=== PATIENT | female | born 1985 | race Caucasian/White ===

== ENCOUNTER 2016-08-02 18:48 | Observation (INO) ==
[2016-08-02 20:00] LABS: Basophils # 0.1 K/mcL (0.0-0.2); Basophils % 0.4 %; Eosinophils # 0.3 K/mcL (0.0-0.6); Eosinophils % 2.2 %; Hematocrit 37.5 % (35.3-44.9); Hemoglobin 12.7 g/dL (11.5-15.4); Immature Granulocytes % 0.4 % (0-4); Immature Platelets 4.2 % (1.1-6.1); Lymphocytes # 0.9 K/mcL (0.6-4.6); Lymphocytes % 6.7 %; Mean Corpuscular HGB Conc 33.9 g/dL (31.6-35.5); Mean Corpuscular Hemoglobin 30.9 pg (28.0-33.3); Mean Corpuscular Volume 91.2 fL (83.0-100.0); Monocytes % 7.8 %; Neutrophils # 10.8 K/mcL (1.6-8.9); Platelet Count 256 K/mcL (140-400); Red Blood Count 4.11 M/mcL (3.82-4.97); Red Cell Distribution Width 11.2 % (11.5-14.5); Segmented Neutrophils % 82.5 %
[2016-08-02 20:17] LABS: Alanine Aminotransferase 56 Units/L (0-55); Albumin 3.2 g/dL (3.5-5.0); Albumin/Globulin Ratio 0.9 (1.1-2.2); Alkaline Phosphatase 224 Units/L (38-126); Amylase 17 Units/L (25-125); Aspartate Amino Transferase 20 Units/L (5-34); BUN/Creatinine Ratio 19 (6-26); Bilirubin,Direct 0.3 mg/dL (0.0-0.5); Bilirubin,Indirect 0.4 mg/dL (0.0-1.2); Bilirubin,Total 0.7 mg/dL (0.2-1.2); Blood Urea Nitrogen 18 mg/dL (7-20); Calcium 9.2 mg/dL (8.6-10.8); Carbon Dioxide 21 mEq/L (19-29); Chloride 101 mEq/L (98-109); Globulin 3.5 g/dL (2.4-3.5); Glucose 216 mg/dL (70-99); Lipase 12 Units/L (8-78); Osmolality,Calculated 288 (280-300); Sodium 135 mEq/L (136-145); Total Protein 6.7 g/dL (6.0-8.3); eGFR For African Americans > 60 (> 60); eGFR For Non-African Americans > 60 (> 60)
[2016-08-02] MEDS ORDERED: 0.9 % Sodium Chloride 1,000 ML IVC ONE (20:50)
[2016-08-02] MEDS ORDERED: Ondansetron 4 MG/2 ML VIAL IVP ONE (20:51)
--- NOTE | 2016-08-02 20:54 | Emergency Department Note ---
Disposition Clinical Impression: Hyperglycemia, Ketoacidosis, Tachycardia, Type 1 diabetes, Vomiting, Diarrhea, Abnormal urinalysis, Abnormal liver function test Disposition: Admitted As Inpatient Condition: Good General Adult HPI - General Chief complaint: ED Abdominal Pain Stated complaint: Flu-like symptoms, vomiting Time Seen by Provider: 08/02/16 20:20 Source: patient, family Limitations: no limitations - History of Present Illness HPI Narrative: 30-year-old female type I diabetic reports emergency department complaining of abdominal pain vomiting and diarrhea. She reports she has had a cough runny nose as well as ear pain and sore throat. The patient thinks she may have had a fever. There is no history of headache neck stiffness or rash. No chest pain. She has felt somewhat short of breath. There is no history of leg swelling or pain falls injuries or coughing up blood. No syncope. The patient states her blood sugars was in the 500 + range earlier today so she took 12 units of insulin. There is no history of black or bloody emesis or stool. She is not known to be anticoagulated. The patient has chronic blindness secondary to her diabetes. She has had no difficulty moving her arms or legs independently, no dysarthria or hearing problems acutely. The patient reports she feels sick. She came in for evaluation. Pain Scale: 8 - Related Data Home Medications Medication Instructions Recorded Confirmed Ergocalciferol (VITAMIN D2) 50,000 unit PO WE 09/06/15 08/02/16 [Vitamin D2 (50,000 UNIT)] LORazepam [Ativan] 1 mg PO BID 02/02/16 08/02/16 PrednisoLONE Acetate 1% Opth 1 drop OP QID 02/02/16 08/02/16 [PredFORTE 1%] Timolol Maleate 0.5% 1 drop OP BID 02/02/16 08/02/16 Atropine 1% Opth Drops 1 drop OP BID 02/15/16 08/02/16 Oxycodone HCl/Acetaminophen 1 each PO Q6H PRN 02/15/16 08/02/16 [Percocet 5-325 mg Tablet] Insulin ASPART [Novolog Flexpen] 0 unit SQ TIDWM 08/02/16 08/02/16 Insulin Glargine,Hum.rec.anlog 20 unit SQ HS 08/02/16 08/02/16 [Lantus Solostar] Previous Rx's Medication Instructions Recorded Fluconazole [Diflucan] 150 mg PO ONCE #1 tablet 08/05/16 Metoclopramide [Reglan] 10 mg PO Q6HR PRN #15 mls 08/05/16 MetroNIDAZOLE [Flagyl] 500 mg PO TID 13 Days 08/05/16 Vancomycin Oral Soln [Vancocin] 125 mg PO QID #65 ml 08/05/16 Allergies Allergy/AdvReac Type Severity Reaction Status Date / Time hydrocodone Allergy Hives Verified 08/02/16 18:56 All systems ED: reviewed and negative except as stated. Past Medical History - Past Medical History Medical history: Reports: arthritis, cirrhosis, diabetes, GERD, glaucoma, hyperlipidemia, hypertension, liver disease, osteoporosis, other Surgical history: Reports: , cholecystectomy, sinus surgery, other Psychiatric history: Reports: anxiety SALES TRAINING REPRESENTATIVE history: Reports: no SALES TRAINING REPRESENTATIVE history - Social History Smoking Status: Never smoker Smokeless Tobacco Status: No Alcohol use: Reports: none Drug use: Reports: none Physical Exam - General Limitations: no limitations General appearance: alert, in no apparent distress - Head Head exam: atraumatic, normocephalic, normal inspection - Eye Eye exam: Present: other (Poor pupillary reaction, chronic blindness). Absent: normal appearance, PERRL, scleral icterus, conjunctival injection, mydriasis - ENT ENT exam: normal exam, normal oropharynx, mucous membranes moist, TM's normal bilaterally, normal external ear exam - Neck Neck exam: Present: normal inspection, full ROM, trachea midline. Absent: meningismus - Chest Chest inspection: Present: symmetric chest wall rise. Absent: tenderness - Respiratory Respiratory exam: Present: normal lung sounds bilaterally. Absent: respiratory distress, prolonged expiratory phase - Cardiovascular Cardiovascular exam: Present: regular rate, tachycardia - Abdominal Exam Abdominal exam: Present: soft, normal bowel sounds. Absent: distention, guarding, rebound, rigidity, pulsatile mass Abdominal tenderness: Present: diffuse, mild - Extremities Exam Extremities exam: Present: normal inspection, full ROM, normal capillary refill. Absent: tenderness, pedal edema, joint swelling, calf tenderness - Expanded Lower Extremity Exam Hip/Pelvis exam: Present: full ROM. Absent: tenderness Upper leg exam: Present: full ROM. Absent: tenderness Knee exam: Present: full ROM. Absent: tenderness Lower leg exam: Absent: tenderness, Homans' sign Foot/toe exam: Present: full ROM. Absent: tenderness Neurovascular/Tendon exam: Present: normal capillary refill. Absent: motor deficit, sensory deficit, tendon deficit, extremity cold to touch, pallor - Back Exam Back exam: Present: normal inspection, full ROM. Absent: tenderness, CVA tenderness (R), CVA tenderness (L), vertebral tenderness - Neurological Exam Neurological exam: Present: alert, oriented X3. Absent: CN II-XII intact ( Chronic blindness), motor sensory deficit - Psychiatric Psychiatric exam: Present: normal affect, normal mood - Skin Skin exam: Present: warm, dry, intact, normal color. Absent: rash, cyanosis, diaphoresis, erythema, pallor, mottled Course Vital Signs Temperature 99.5 F 08/02/16 18:53 Pulse Rate 121 08/02/16 18:53 Respiratory Rate 17 08/02/16 18:53 Blood Pressure 136/78 08/02/16 18:53 O2 Sat by Pulse Oximetry 97 08/02/16 18:53 Temperature 97.9 F 08/05/16 07:57 Pulse Rate 105 08/05/16 07:57 Respiratory Rate 16 08/05/16 07:57 Blood Pressure 142/92 08/05/16 07:57 O2 Sat by Pulse Oximetry 98 08/05/16 07:57 Oxygen Delivery Oxygen Delivery Room Air Medical Decision Making - [facility] Narrative Medical decision making narrative: The patient reportedly had glucose levels about 580 earlier today, she gave herself some insulin, she has had vomiting and diarrhea and diffuse abdominal pain. The patient's betahydroxybutyrate acid levels are high, she is tachycardic. based on the patient's tachycardia, history of markedly elevated blood sugar, known type 1 diabetes mellitus, and significantly elevated beta hydroxybutyrate levels possibly indicating resolving DKA, I thought it would be appropriate to admit the patient to the hospital for further evaluation and management. Although her urinalysis does show abnormalities, her white count is elevated, and she is tachycardic, she is afebrile I do not necessarily suspect sepsis, however this remains a possibility, urine cultures and blood cultures were sent , IV fluid was given, I consulted with the hospitalist on-call who has accepted the patient to their care. - Lab Data Lab results reviewed: Yes I reviewed the patient's lab results. Result diagrams: 08/05/16 04:23 08/05/16 04:23 Lab Results 08/02/16 08/02/16 08/02/16 Range/Units 19:19 19:35 19:35 WBC 13.0 H (4.3-11.1) K/mcL RBC 4.11 (3.82-4.97) M/mcL Hgb 12.7 (11.5-15.4) g/dL Hct 37.5 (35.3-44.9) % MCV 91.2 (83.0-100.0) fL MCH 30.9 (28.0-33.3) pg MCHC 33.9 (31.6-35.5) g/dL RDW 11.2 L (11.5-14.5) % Plt Count 256 (140-400) K/mcL MPV 10.0 (9.4-12.4) fL Immature Gran % 0.4 (0-4) % Seg Neutrophils % 82.5 % Lymphocytes % 6.7 % Monocytes % 7.8 % Eosinophils % 2.2 % Basophils % 0.4 % Neutrophils # 10.8 H (1.6-8.9) K/mcL Lymphocytes # 0.9 (0.6-4.6) K/mcL Monocytes # 1.0 (0.0-1.3) K/mcL Eosinophils # 0.3 (0.0-0.6) K/mcL Basophils # 0.1 (0.0-0.2) K/mcL Immature Plt Fraction 4.2 (1.1-6.1) % Sodium 135 L (136-145) mEq/L Potassium 4.0 (3.5-4.5) mEq/L Chloride 101 (98-109) mEq/L Carbon Dioxide 21 (19-29) mEq/L BUN 18 (7-20) mg/dL Creatinine 0.96 (0.57-1.11) mg/dL Est GFR ( Amer) > 60 (> 60) Est GFR (Non-Af Amer) > 60 (> 60) BUN/Creatinine Ratio 19 (6-26) Glucose 216 H (70-99) mg/dL POC Glucose 218 H (58-89) Calculated Osmolality 288 (280-300) Calcium 9.2 (8.6-10.8) mg/dL Total Bilirubin 0.7 (0.2-1.2) mg/dL Direct Bilirubin 0.3 (0.0-0.5) mg/dL Indirect Bilirubin 0.4 (0.0-1.2) mg/dL AST 20 (5-34) Units/L ALT 56 H (0-55) Units/L Alkaline Phosphatase 224 H (38-126) Units/L Serum Total Protein 6.7 (6.0-8.3) g/dL Albumin 3.2 L (3.5-5.0) g/dL Globulin 3.5 (2.4-3.5) g/dL Albumin/Globulin Ratio 0.9 L (1.1-2.2) Amylase 17 L (25-125) Units/L Lipase 12 (8-78) Units/L Beta-Hydroxybutyric Acd > 2.00 H (0.02-0.27) mmol/L - Radiology Data Radiology results reviewed: Yes I reviewed the patient's radiology results.
[2016-08-02 21:15] LABS: Beta-Hydroxybutyric Acid > 2.00 mmol/L (0.02-0.27)
[2016-08-02] MEDS ORDERED: *HR* HYDROmorphone (PF) 1 MG/ML SYRINGE IVP ONE (22:36)
[2016-08-02 22:53] LABS: Bilirubin,Urine Negative (Negative); Blood,Urine Moderate (Negative); Clarity,Urine Cloudy (Clear); Color,Urine Yellow (Yellow); Glucose,Urine (UA) >=1000 mg/dL (Normal); Ketones,Urine 80 mg/dL (Negative); Leukocyte Esterase,Urine Negative (Negative); Nitrite,Urine Negative (Negative); Protein,Urine 100 mg/dL (Neg-Trace); Urobilinogen,Urine Normal (Normal)
[2016-08-02 22:55] LABS: Bacteria,Urine Many per hpf (None-Few); Squamous Epithelial Cell,Urine Many per lpf (None-Few); WBC,Urine 30-50 per hpf (0-3)
[2016-08-02 23:05] LABS: Yeast,Urine Few per hpf (None Seen)
[2016-08-03] MEDS ORDERED: *HR* Dextrose 50 % in Water (Syg) 50 ML SYRINGE IVP PRN ×3 (00:59→03:34)
[2016-08-03] MEDS ORDERED: Dextrose Gel 15 GM PO PRN ×4 (00:59→03:34)
[2016-08-03] MEDS ORDERED: D5% in Water 1,000 ML IVC PRN ×2 (00:59→03:34)
--- NOTE | 2016-08-03 01:01 | Internal Med History&Physical ---
Date of Encounter: 08/03/16 Time of Encounter: 00:46 Assessment and Plan (1) Intractable nausea and vomiting Current visit: Yes Status: Acute she comes in with abdominal pain, intractable nausea, vomiting and diarrhea most likely gastroenteritis from viral infection considering her recent bout of URTI, we will management symptomatically Qualifiers: Vomiting type: unspecified Qualified Code(s): R11.2 - Nausea with vomiting , unspecified (2) Hyperglycemia due to type 1 diabetes mellitus Current visit: Yes Status: Acute per patient her home readings were in the 500's, despite taking her insulin shots, this may be related to her concurrent URTI, her readings on this admission has also been in that range but improved, we will admit her for control, she is not in DKA yet but has significant ketosis most likely from starvation, we will do basal bolus insulin regimen, should her glucose control be poor despite this intervention we will consider initiating insulin drip (3) SIRS (systemic inflammatory response syndrome) Current visit: Yes Status: Acute may be a response to her URTI, her urine looks dirty but does not suggest UTI, her CXR looks normal (4) URTI (acute upper respiratory infection) Current visit: Yes Status: Acute (5) GERD (gastroesophageal reflux disease) Current visit: Yes Status: Chronic no home medication noted, we will consider medications if she reports symptoms Qualifiers: Esophagitis presence: without esophagitis Qualified Code(s): K21.9 - Gastro -esophageal reflux disease without esophagitis (6) Vitamin D deficiency Current visit: Yes Status: Chronic will continue replacement therapy weekly Internal Medicine - H&P: HPI Chief complaint: high glucose readings at home Admitted From: Emergency Dept Plans for Post Hospital Care: Home History of present illness: Ms. Sierra is a 30 year old female with a history of type 1 DM complicated by blindness was brought to the ER of [place] for uncontrollable nausea, vomiting and abdominal pain. She was reportedly in her usual state of health until Monday when she began to have runny nose, nasal congestion, cough and subjective fever and chills. This was followed by nausea, vomiting and abdominal pain and was unable to keep anything down. Though she continued to taken her insulin shots her home glucose readings were in the 500's so she reported here for further evaluation. She denies prior sick contacts, her appetite has been poor and her food intake has been minimal due to the aforementioned reasons. In the ER she was found to have hyperglycemia with ketosis but not in DKA. Past Med Surg Social Fam HX - Past Medical History Medical history: arthritis, cirrhosis, diabetes, GERD, glaucoma, hyperlipidemia , hypertension, liver disease, osteoporosis, other Psychiatric history: anxiety - Past Surgical History Surgical History: , cholecystectomy, sinus surgery, other - Social History Smoking Status: Never smoker Smokeless Tobacco Status: No Alcohol use: none Drug use: none - Family History Grandmother Family Member Ethnicity: Non- Living Status: Still Living Hx Family Cardiac Disorders: No Hx Family Respiratory Disorders: No Hx Family Cancer: No Hx Family GI Disorders: No Hx Family Genitourinary Disorders: No Hx Family Endocrine Disorder: Yes (type 2 diabetes) Hx Family Musculoskeletal Disorders: No Hx Family Neuromuscular Disorders: No Hx Family Neurologic Disorders: Yes (stroke) Hx Family HEENT Disorders: No Hx Family Autoimmune Disorders: No Hx Family Reproductive Disorders: No Hx Family Psychosocial Disorders: No Hx Family Medical Disorders: No Internal Medicine - H&P: Meds Ergocalciferol (VITAMIN D2) [Vitamin D2 (50,000 UNIT)] 50,000 unit PO WE [History] LORazepam [Ativan] 1 mg PO BID 02/02/16 [History] PrednisoLONE Acetate 1% Opth [PredFORTE 1%] 1 drop OP QID 02/02/16 [History] Timolol Maleate 0.5% 1 drop OP BID 02/02/16 [History] Atropine 1% Opth Drops 1 drop OP BID 02/15/16 [History] Oxycodone HCl/Acetaminophen [Percocet 5-325 mg Tablet] 1 each PO Q6H PRN [History] Insulin ASPART [Novolog Flexpen] 0 unit SQ TIDWM 08/02/16 [History] Insulin Glargine,Hum.rec.anlog [Lantus Solostar] 20 unit SQ HS 08/02/16 [History ] Allergies hydrocodone Allergy (Verified 08/02/16 18:56) Hives All Systems PM: A 10-system review of systems was performed and is negative for pertinent findings except as documented above in the HPI. - Constitutional Constitutional: anorexia, fatigue, malaise, weakness, no chills, no fever(s), no night sweats - EENT Eyes: blurry vision, change in vision, decreased night vision, loss of peripheral vision, loss of vision Ears: no ear discharge, no ear pain, no tinnitus Nose, mouth and throat: dry mouth, no dysphagia, no nasal discharge, no neck pain, no sore throat - Cardiovascular Cardiovascular ROS IM: no chest pain, no diaphoresis, no dyspnea, no dyspnea on exertion, no edema, no lightheadedness, no palpitations, no syncope - Respiratory Respiratory: no cough, no dyspnea, no wheezing, no excessive phlegm production - Gastrointestinal Gastrointestinal: abdominal pain, diarrhea, nausea, vomiting - Genitourinary Genitourinary: no change in urinary stream, no dysuria, no flank pain, no hematuria - Musculoskeletal Musculoskeletal ROS IM: no numbness, no tingling - Integumentary Integumentary IM: no rash, no unusual bruising - Neurological Neurological ROS: weakness, other visual disturbances, no confusion, no convulsions, no focal weakness, no numbness, no tingling, no tremor(s) - Psychiatric Psychiatric: no auditory hallucinations, no hallucinations - Endocrine Endocrine IM: fatigue, polydipsia, polyuria - Hematologic/Lymphatic Hematologic/Lymphatic: no easy bruising - Allergic/Immunologic Allergic/Immunologic: no tongue swelling, no throat swelling - Constitutional Vitals: Temp Pulse Resp BP Pulse Ox 99.5 F 120 16 123/66 97 08/02/16 23:43 08/02/16 23:43 08/02/16 23:43 08/02/16 23:43 08/02/16 23:43 - General General appearance: Young female, lying in bed, in no acute distress, alert, - Head Head exam: atraumatic, normocephalic, normal inspection - Eye Eye exam: Poor pupillary reaction, chronic blindness. Absent: normal appearance , PERRL, scleral icterus, conjunctival injection, mydriasis - ENT ENT exam: normal exam, normal oropharynx, mucous membranes moist, TM's normal bilaterally, normal external ear exam - Neck Neck exam: Present: normal inspection, full ROM, trachea midline. Absent: meningismus - Chest Chest inspection: Present: symmetric chest wall rise. Absent: tenderness - Respiratory Respiratory exam: Present: normal lung sounds bilaterally. Absent: respiratory distress, prolonged expiratory phase - Cardiovascular Cardiovascular exam: Present: regular rate, tachycardia - Abdominal Exam Abdominal exam: Present: soft, diffuse tenderness, no guarding noted, normal bowel sounds. Absent: distention, guarding, rebound, rigidity, pulsatile mass - Extremities Exam Extremities exam: Present: normal inspection, full ROM, normal capillary refill. Absent: tenderness, pedal edema, joint swelling, calf tenderness - Back Exam Back exam: Present: normal inspection, full ROM. Absent: tenderness, CVA tenderness (R), CVA tenderness (L), vertebral tenderness - Neurological Exam Neurological exam: Present: alert, oriented X3. Absent: CN II-XII intact ( Chronic blindness), motor sensory deficit - Psychiatric Psychiatric exam: Present: normal affect, normal mood - Skin Skin exam: Present: warm, dry, intact, normal color. Absent: rash, cyanosis, diaphoresis, erythema, pallor, mottled Internal Med - H&P Results - Labs CBC & Chem 7: 08/03/16 05:01 08/03/16 05:01 Labs: Urine 08/02/16 Range/Units 22:45 Urine Color Yellow (Yellow) Urine Clarity Cloudy A (Clear) Urine pH 6.0 (5.0-8.0) pH Units Ur Specific [place] 1.030 H (1.010-1.025) Urine Protein 100 H (Neg-Trace) mg/dL Urine Glucose (UA) >=1000 H (Normal) mg/dL - Diagnostic Studies Chest x-ray Status: image reviewed by me
[2016-08-03] MEDS ORDERED: Naloxone 0.4 MG/ML INJ IVP PRN (01:03)
[2016-08-03] MEDS ORDERED: Insulin LISPRO 300 UNITS/3 ML VIAL SQ SCH ×2 (01:15→07:30)
[2016-08-03] MEDS ORDERED: Insulin LISPRO 300 UNITS/3 ML VIAL SQ ONE (01:29)
[2016-08-03] MEDS: *HR* HYDROmorphone (PF) 1 MG/ML SYRINGE IVP PRN ×2 (01:33→08:29)
[2016-08-03] MEDS: 0.9 % Sodium Chloride 1,000 ML IVC SCH ×2 (01:34→08:14)
[2016-08-03] MEDS ORDERED: Insulin Human Regular 100 UNIT in 0.9 % Sodium Chloride 100 ML IVC SCH (03:15)
[2016-08-03] MEDS: Insulin LISPRO 300 UNITS/3 ML VIAL SQ SCH ×5 (03:55→21:38)
[2016-08-03 05:29] LABS: Basophils % 0.4 %; Eosinophils # 0.1 K/mcL (0.0-0.6); Eosinophils % 1.2 %; Hematocrit 31.4 % (35.3-44.9); Immature Granulocytes % 0.7 % (0-4); Lymphocytes # 1.8 K/mcL (0.6-4.6); Lymphocytes % 17.7 %; Mean Corpuscular HGB Conc 33.1 g/dL (31.6-35.5); Mean Corpuscular Hemoglobin 31.3 pg (28.0-33.3); Mean Corpuscular Volume 94.6 fL (83.0-100.0); Mean Platelet Volume 9.8 fL (9.4-12.4); Monocytes # 0.7 K/mcL (0.0-1.3); Monocytes % 6.4 %; Neutrophils # 7.7 K/mcL (1.6-8.9); Platelet Count 213 K/mcL (140-400); Red Blood Count 3.32 M/mcL (3.82-4.97); Red Cell Distribution Width 11.2 % (11.5-14.5); Segmented Neutrophils % 73.6 %
[2016-08-03 05:42] LABS: Hemoglobin 10.4 g/dL (11.5-15.4)
[2016-08-03] MEDS: *HR* Heparin 5,000 UNIT/ML VIAL SQ SCH ×2 (05:49→17:23)
[2016-08-03 05:52] LABS: BUN/Creatinine Ratio 15 (6-26); Blood Urea Nitrogen 16 mg/dL (7-20); Carbon Dioxide 15 mEq/L (19-29); Chloride 107 mEq/L (98-109); Glucose 271 mg/dL (70-99); Magnesium 1.8 mg/dL (1.6-2.6); Osmolality,Calculated 285 (280-300); Phosphorous 2.5 mg/dL (2.3-4.7); Potassium 3.4 mEq/L (3.5-4.5); Sodium 132 mEq/L (136-145); eGFR For African Americans > 60 (> 60); eGFR For Non-African Americans > 60 (> 60)
[2016-08-03 06:04] LABS: Large Platelets Present (Not Present); Platelet Estimate Normal (Normal)
[2016-08-03] MEDS: *HR* LORazepam 1 MG TABLET PO SCH ×2 (08:12→21:37)
[2016-08-03] MEDS: PrednisoLONE Acetate 1% Opth 5 ML BOTTLE BOTH EYES SCH ×4 (08:13→21:37)
[2016-08-03] MEDS: Atropine Sulfate 1% 40 DROP/2 ML BOTTLE BOTH EYES SCH ×2 (08:13→21:37)
[2016-08-03] MEDS: Ondansetron 4 MG/2 ML VIAL IVP PRN (08:29)
--- NOTE | 2016-08-03 10:52 | Event Note ---
Date of Encounter: 08/03/16 Time of Encounter: 08:40 Pt was evaluated at 0840 this a.m. Pt was sleeping, aroused easily to verbal stimuli. She is alert and oriented x 3, speech is clear. Sudden onset of N/V/D on Monday, as well as rhinorrhea and non-productive cough. She states that it lasted until yesterday when her home health nurse suggested that she come to the ED for evaluation. Her urine showed many bacteria, elevated ketones, glucose >1000, protein 100. Negative for LE and nitrites. Microscopic RBC 3-5 and WBC 30-50. Culture was ordered this a.m. She denies urinary symptoms and, has low abd pain and kailash CVA tenderness, L> R. She also reports abd tenderness from vomiting. I have started Ceftriaxone 1gram q12h IV and will wait on culture. She has PT at home 5 days/week and nurse visits 5 days/week. Pt states that PT is working with her arms since she lost her vision approximately 6 mos ago. Pt states that she feels better, however, not well enough to go home. She reports that nausea has improved and that she has not vomited. No leukocytosis or fever, Pt was not tachycardic or tachypneic during exam. Pt's flu swab was negative as was her chest xray. Her lungs are clear ant and post. She has no peripheral edema. We will continue the sliding scale insulin and accuchecks. Labs in the a.m. Urine culture pending. Pt has prn medication for n/v. We will continue to monitor pt's condition.
[2016-08-03] MEDS: *HR* OxyCODONE/APAP 5/325 TABLET PO PRN ×2 (17:23→23:48)
[2016-08-03] MEDS ORDERED: Insulin DETEMIR 100 UNIT/ML X5UNITS SQ SCH (21:00)
[2016-08-03] MEDS: Insulin DETEMIR 100 UNIT/ML X5UNITS SQ SCH (21:37)
[2016-08-04] MEDS: *HR* OxyCODONE/APAP 5/325 TABLET PO PRN ×3 (04:57→22:20)
[2016-08-04] MEDS: *HR* Heparin 5,000 UNIT/ML VIAL SQ SCH ×2 (04:58→19:07)
[2016-08-04] MEDS: Insulin LISPRO 300 UNITS/3 ML VIAL SQ SCH ×4 (09:07→22:05)
[2016-08-04] MEDS: *HR* LORazepam 1 MG TABLET PO SCH ×2 (09:12→22:02)
[2016-08-04] MEDS: metroNIDAZOLE 500 MG TABLET PO SCH ×3 (09:12→22:03)
[2016-08-04] MEDS: Vancomycin Oral Soln 250 MG/2.5 ML UDC PO SCH ×4 (09:18→22:01)
[2016-08-04] MEDS: Atropine Sulfate 1% 40 DROP/2 ML BOTTLE BOTH EYES SCH ×2 (09:19→22:03)
[2016-08-04] MEDS: PrednisoLONE Acetate 1% Opth 5 ML BOTTLE BOTH EYES SCH ×4 (09:20→22:05)
--- NOTE | 2016-08-04 11:24 | Internal Med Progress Note ---
Date of Encounter: 08/04/16 Time of Encounter: 09:05 - Assessment and plan (1) C. difficile diarrhea Current Visit: Yes Status: Acute Assessment and plan: Patient has been having diarrhea since prior to admission. Specimen was sent to lab yesterday as positive for C. difficile. Patient reports diffuse abdominal pain, worse in low abdomen with radiation to bilateral flanks. Yesterday patient had bilateral CVA tenderness, left greater than right. None today. She was treated for UTI with Rocephin. Culture was returned today is negative, no growth. Rocephin has been stopped. Patient normally takes Percocet at home for her splenomegaly and chronic abdominal pain. We have continued that here. She is requesting more pain medication, I did explain to her that she is positive for C. difficile and antibiotics will begin to help with the pain as well. Her abdomen is rounded soft and she reports tenderness in left lower quadrant. Hypoactive bowel sounds heard throughout. No leukocytosis, white count is 10.4. She has remained afebrile, normotensive, and her pulses within normal limits. Contact precautions Flagyl 500 mg by mouth 3 times a day, for 10-14 days Vancocin 125 mg by mouth 4 times a day, 10-14 days Monitor vital signs Labs in the a.m. (2) Intractable nausea and vomiting Current Visit: Yes Status: Acute Assessment and plan: Patient has not been vomiting. She remains with mild nausea intermittently. She has been eating and drinking without difficulty. When necessary antiemetics po and IV fluids Qualifiers: Vomiting type: unspecified Qualified Code(s): R11.2 - Nausea with vomiting , unspecified (3) GERD (gastroesophageal reflux disease) Current Visit: Yes Status: Chronic Assessment and plan: Patient denies symptoms. We will continue to assess need for possible medication. Qualifiers: Esophagitis presence: without esophagitis Qualified Code(s): K21.9 - Gastro -esophageal reflux disease without esophagitis (4) SIRS (systemic inflammatory response syndrome) Current Visit: No Status: Acute Assessment and plan: Source of infection is C. difficile. Her white count was 10.4. She is not tachypneic breaths 16 and unlabored. She remains afebrile. (5) Hyperglycemia due to type 1 diabetes mellitus Current Visit: Yes Status: Acute Assessment and plan: A1c is ordered for the morning. Patient had episodes of hypoglycemia and 40 this morning. It was corrected last point care was 80. Sliding scale insulin Accu-Cheks before meals at bedtime Diabetic diet Monitor labs (6) Vitamin D deficiency Current Visit: Yes Status: Chronic Assessment and plan: Chronic. Continue weekly therapy. - Time Spent With Patient less than 15 minutes - Subjective Interval history: Patient was seen and examined this morning at approximately 0905. She was sitting up in bed awake eating toast. She had an episode of hypoglycemia blood sugar was 60. She was given orange juice and toast. Patient appeared to be asymptomatic. Patient reports constant dull, aching diffuse abdominal pain. Patient states this is slightly worse than the normal abdominal pain that she has and states that Percocet is not helping her. She takes Percocet at home every day. We have continued her home dose. She was given Dilaudid in the emergency department, I have discontinued in favor of the Percocet. I did discuss this with her and explained that the antibiotics may help with the abdominal pain. She denies nausea today, as well as vomiting. She has diarrhea and is positive for C. difficile. She is in precautions and has been started on both vancomycin and Flagyl by mouth. She denies any sick contact, lives with her boyfriend who works at a [employer] shop, has not been in any other healthcare facility, and states that she did have antibiotics briefly which he had eye surgery last month. Her abdomen is slightly distended, tender to left lower quadrant, hyperactive bowel sounds. She has no leukocytosis or fever. Patient has nursing care at home daily. She also lives with her boyfriend who helps her daily. Plan is to discharge patient to home tomorrow. - Constitutional Vitals: Temp Pulse Resp BP Pulse Ox 97.6 F 95 17 124/80 98 08/04/16 03:36 08/04/16 03:36 08/04/16 03:36 08/04/16 03:36 08/04/16 03:36 General appearance: Present: cooperative, A&O X 3, pleasant, answers questions appropriately. Absent: severe distress - Head Head exam: Present: normal inspection - Neck Neck exam general surgery: Present: normal inspection. Absent: lymphadenopathy , tenderness - Respiratory Respiratory exam: Present: CTAB. Absent: respiratory distress, rhonchi, wheezes - Cardiovascular Cardiovascular exam: Present: RRR, +S1, +S2. Absent: tachycardia - Expanded Cardiovascular Exam Peripheral pulses: 1+: Dorsalis Pedis (L) PM, Dorsalis Pedis (R) PM - GI/Abdominal GI/Abdominal exam: Present: distended, normal bowel sounds, soft, tenderness - Extremities Exam Extremities exam: Present: normal capillary refill, warm, radial pulses palpable and symetrical. Absent: pedal edema, tenderness - Neurological Exam Neurological exam: Present: alert, oriented X3, no focal deficits, strengths equal and symetr throughout Internal Medicine: Result - Labs CBC & Chem 7: 08/03/16 05:01 08/03/16 05:01 Consult Discharge Plan - Plan Referrals: Zehra Jamison CNP [Primary Care Provider] - 08/10/16 9:30 am
[2016-08-04 12:48] LABS: Basophils % 0.5 %; Eosinophils # 0.3 K/mcL (0.0-0.6); Eosinophils % 5.2 %; Hematocrit 30.6 % (35.3-44.9); Hemoglobin 10.3 g/dL (11.5-15.4); Immature Granulocytes % 0.5 % (0-4); Lymphocytes # 1.2 K/mcL (0.6-4.6); Lymphocytes % 19.9 %; Mean Corpuscular HGB Conc 33.7 g/dL (31.6-35.5); Mean Platelet Volume 9.7 fL (9.4-12.4); Monocytes # 0.5 K/mcL (0.0-1.3); Monocytes % 9.1 %; Neutrophils # 3.8 K/mcL (1.6-8.9); Platelet Count 187 K/mcL (140-400); Red Blood Count 3.22 M/mcL (3.82-4.97); Red Cell Distribution Width 11.1 % (11.5-14.5); Segmented Neutrophils % 64.8 %
[2016-08-04] MEDS: Ondansetron 4 MG/2 ML VIAL IVP PRN (12:54)
[2016-08-04 13:00] LABS: BUN/Creatinine Ratio 13 (6-26); Blood Urea Nitrogen 11 mg/dL (7-20); Calcium 8.3 mg/dL (8.6-10.8); Carbon Dioxide 25 mEq/L (19-29); Chloride 107 mEq/L (98-109); Glucose 308 mg/dL (70-99); Osmolality,Calculated 295 (280-300); Potassium 3.9 mEq/L (3.5-4.5); Sodium 137 mEq/L (136-145); eGFR For African Americans > 60 (> 60); eGFR For Non-African Americans > 60 (> 60)
[2016-08-04] MEDS ORDERED: Metoclopramide 10 MG/2 ML VIAL IVP ONE (15:40)
[2016-08-04] MEDS: Insulin DETEMIR 100 UNIT/ML X5UNITS SQ SCH (22:03)
[2016-08-05] MEDS ORDERED: *HR* HYDROmorphone (PF) 1 MG/ML SYRINGE IVP ONE (00:36)
[2016-08-05] MEDS: *HR* Heparin 5,000 UNIT/ML VIAL SQ SCH (04:31)
[2016-08-05] MEDS: *HR* OxyCODONE/APAP 5/325 TABLET PO PRN ×2 (04:31→10:50)
[2016-08-05 05:34] LABS: Basophils % 0.6 %; Eosinophils # 0.3 K/mcL (0.0-0.6); Eosinophils % 3.8 %; Hematocrit 30.1 % (35.3-44.9); Hemoglobin 10.3 g/dL (11.5-15.4); Immature Granulocytes % 0.4 % (0-4); Lymphocytes # 1.4 K/mcL (0.6-4.6); Lymphocytes % 20.2 %; Mean Corpuscular HGB Conc 34.2 g/dL (31.6-35.5); Mean Corpuscular Hemoglobin 31.8 pg (28.0-33.3); Mean Corpuscular Volume 92.9 fL (83.0-100.0); Monocytes # 0.7 K/mcL (0.0-1.3); Monocytes % 9.7 %; Neutrophils # 4.6 K/mcL (1.6-8.9); Platelet Count 246 K/mcL (140-400); Red Blood Count 3.24 M/mcL (3.82-4.97); Segmented Neutrophils % 65.3 %
[2016-08-05 05:56] LABS: BUN/Creatinine Ratio 16 (6-26); Blood Urea Nitrogen 15 mg/dL (7-20); Calcium 8.9 mg/dL (8.6-10.8); Carbon Dioxide 24 mEq/L (19-29); Chloride 105 mEq/L (98-109); Glucose 396 mg/dL (70-99); Osmolality,Calculated 303 (280-300); Sodium 138 mEq/L (136-145); eGFR For African Americans > 60 (> 60); eGFR For Non-African Americans > 60 (> 60)
[2016-08-05 06:05] LABS: Hemoglobin A1C 8.9 %
[2016-08-05 07:58] VITALS: BP 142/92
[2016-08-05] MEDS: *HR* LORazepam 1 MG TABLET PO SCH (08:10)
[2016-08-05] MEDS: Insulin LISPRO 300 UNITS/3 ML VIAL SQ SCH (08:10)
[2016-08-05] MEDS: metroNIDAZOLE 500 MG TABLET PO SCH (08:11)
[2016-08-05] MEDS: PrednisoLONE Acetate 1% Opth 5 ML BOTTLE BOTH EYES SCH (08:11)
[2016-08-05] MEDS: Atropine Sulfate 1% 40 DROP/2 ML BOTTLE BOTH EYES SCH (08:11)
[2016-08-05] MEDS: Vancomycin Oral Soln 250 MG/2.5 ML UDC PO SCH (08:12)
--- NOTE | 2016-08-05 10:34 | Discharge Summary ---
Date of Encounter: 08/05/16 Time of Encounter: 08:40 - Discharge Diagnosis (1) C. difficile diarrhea Priority: Primary Status: Acute Comments: Patient is still having diarrhea. She says it is light in color. Abdominal cramping has improved. Abdomen is slightly rounded soft nontender sounds present. I talked with patient regarding frequent handwashing and cleaning the bathroom frequently at home. I also discussed the possibility of a yeast infection with her, I will send her home with a Diflucan. I encouraged pt to continue her home medications and to stay hydrated. Pt without fever or leukocytosis. Flagyl 500mg po tid x 13 days Vancocin 125mg po qid x 13 days (2) Intractable nausea and vomiting Priority: Secondary Status: Acute Comments: Pt reports continued nausea not helped by Zofran, however, she is eating breakfast and has not vomited. She states that she has Zofran at home already. I will send her home with Reglan po for nausea. Qualifiers: Vomiting type: unspecified Qualified Code(s): R11.2 - Nausea with vomiting , unspecified (3) GERD (gastroesophageal reflux disease) Priority: Secondary Status: Chronic Comments: Chronic. Continue home medications. Qualifiers: Esophagitis presence: without esophagitis Qualified Code(s): K21.9 - Gastro -esophageal reflux disease without esophagitis (4) SIRS (systemic inflammatory response syndrome) Priority: Secondary Status: Resolved (5) Hyperglycemia due to type 1 diabetes mellitus Priority: Secondary Status: Chronic Comments: A1c 8.9 during this visit. Continue home medications. Monitor blood glucose closely. (6) Vitamin D deficiency Priority: Secondary Status: Chronic Comments: Continue supplementation - Discharge Medications Prescriptions: Metoclopramide [Reglan] 10 mg PO Q6HR PRN #15 mls PRN Reason: Nausea And Vomiting Fluconazole [Diflucan] 150 mg PO ONCE #1 tablet MetroNIDAZOLE [Flagyl] 500 mg PO TID 13 Days Vancomycin Oral Soln [Vancocin] 125 mg PO QID #65 ml Home Medications: Ergocalciferol (VITAMIN D2) [Vitamin D2 (50,000 UNIT)] 50,000 unit PO WE [History] LORazepam [Ativan] 1 mg PO BID 02/02/16 [History] PrednisoLONE Acetate 1% Opth [PredFORTE 1%] 1 drop OP QID 02/02/16 [History] Timolol Maleate 0.5% 1 drop OP BID 02/02/16 [History] Atropine 1% Opth Drops 1 drop OP BID 02/15/16 [History] Oxycodone HCl/Acetaminophen [Percocet 5-325 mg Tablet] 1 each PO Q6H PRN [History] Insulin ASPART [Novolog Flexpen] 0 unit SQ TIDWM 08/02/16 [History] Insulin Glargine,Hum.rec.anlog [Lantus Solostar] 20 unit SQ HS 08/02/16 [History ] Fluconazole [Diflucan] 150 mg PO ONCE #1 tablet 08/05/16 [Rx] Metoclopramide [Reglan] 10 mg PO Q6HR PRN #15 mls 08/05/16 [Rx] MetroNIDAZOLE [Flagyl] 500 mg PO TID 13 Days 08/05/16 [Rx] Vancomycin Oral Soln [Vancocin] 125 mg PO QID #65 ml 08/05/16 [Rx] Allergies/Adverse Reactions: Allergies hydrocodone Allergy (Verified 08/02/16 18:56) Hives Date of admission: 08/02/16 22:32 Primary care physician: Zehra Jamison Discharging clinician: Sharon Nelson Anticipated date of discharge: 08/05/16 - Patient Status Disposition: Home, Self-Care Condition: Good Functional capacity at discharge: independent ambulation Overall status at discharge: patient is progressing back to baseline - Discharge Instructions Follow Up With: Zehra Jamison CNP [Primary Care Provider] - 08/10/16 9:30 am Additional Instructions: Restart your home medications Take your antibiotics as written. Make sure that you take them all until they are gone. Stay hydrated, drink plenty of fluids Monitor your blood sugar closely at home. As we discussed, make sure that you and everyone at home are washing your hands frequently and cleaning the bathroom frequently. Follow up with your primary care provider in the next week for a follow up appointment. Take the Diflucan if you start having symptoms of a yeast infection. Return to the ED if you have any other problems or concerns or if your condition worsens. - Diet and Activity Activity: increase activity as tolerated, resume usual activities as tolerated Diet: diabetic diet Hospital course: Ms. 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 She was brought to the emergency department D for uncontrolled nausea vomiting and abdominal pain on August 03. She had been having URI symptoms with clear rhinorrhea nasal congestion and nonproductive cough and subjective fever and chills, accompanied by the uncontrollable nausea vomiting and abdominal pain. She did admit that she has chronic abdominal pain due to splenomegaly and other abdominal pain of unknown origin takes Percocet at home for these. She was also admitted with hyperglycemia blood sugars in the 500s. She was given IV fluids and sliding scale insulin and had episodes of hypo-and hyperglycemia. Her A1c is 8.9 so I feel like she fluctuates frequently and is not well controlled. Her stool was sent for culture and was positive for C-diff. Pt was started on Flagyl 500mg po tid and Vancocin 125mg po qid. She will be sent home on these. Pt still reports diarrhea today, but states that pain is better. She keeps asking different staff members for pain medication and states that her normal home dose of Percocet is not working, however, we only discussed this yesterday. Nursing staff reports that she is sometimes tearful and begging them for pain medication, however she does not do this when I am in the room. She still reports nausea that is not relieved by Zofran, she has a prescription for Zofran at home already. I will send her home with Reglan 10mg po q6h prn. She and I discussed frequent hand washing and cleaning of the bathroom once at home. Her was in the room and was involved in the education. We also discussed the importance of close monitoring of her glucose and staying hydrated once she is home. Pt is stable for discharge. - Time Spent with Patient Total time spent providing and/or coordinating discharge services: Less than 30 minutes - Constitutional Vitals: Temp Pulse Resp BP Pulse Ox 97.9 F 105 16 142/92 98 08/05/16 07:57 08/05/16 07:57 08/05/16 07:57 08/05/16 07:57 08/05/16 07:57 General appearance: Present: cooperative, A&O X 3, pleasant, answers questions appropriately. Absent: severe distress - Head Head exam: Present: normal inspection - Eye Eye exam: Present: normal appearance - ENT ENT exam: Present: mucous membranes moist, normal exam, normal external ear exam , normal oropharynx - Neck Neck exam general surgery: Present: normal inspection. Absent: lymphadenopathy , tenderness - Respiratory Respiratory exam: Present: CTAB. Absent: chest wall tenderness, rhonchi, wheezes - Cardiovascular Cardiovascular exam: Present: RRR, +S1, +S2 - GI/Abdominal GI/Abdominal exam: Present: distended, normal bowel sounds, soft. Absent: tenderness - Extremities Exam Extremities exam: Present: normal inspection, tenderness, warm, radial pulses palpable and symetrical. Absent: pedal edema - Neurological Exam Neurological exam: Present: alert, oriented X3, no focal deficits. Absent: facial droop, speech deficit
== END 2016-08-05 11:55 | disposition home or self-care (01) ==
LOC: EMEROO 18:48 → 3BNU 18:48
PROVIDERS: ADMIT Registered Nurse; ATTEND Registered Nurse

== ENCOUNTER 2016-08-17 21:47 | Observation (INO) ==
--- NOTE | 2016-08-17 23:18 | Emergency Department Note ---
Disposition Clinical Impression: DKA (diabetic ketoacidoses) Disposition: Admitted As Inpatient Condition: Serious General Adult HPI - General Chief complaint: ED Nausea/Vomiting/Diarrhea Stated complaint: high glucose type 1 diabetic has cdif Source: patient, family Limitations: no limitations - History of Present Illness HPI Narrative: This is a 30-year-old female with a lot of underlying medical problems including diabetes. She states it has been reading too high to read since this morning but has been trying to get it under control at home and has now come in feeling dehydrated. She has some abdominal cramping and nausea and some generalized aches. She has had DKA in the past and it has felt similar. She reports blindness following a surgical complication at [facility] about 3 months ago. Pain Scale: 8 - Related Data Home Medications Medication Instructions Recorded Confirmed Ergocalciferol (VITAMIN D2) 50,000 unit PO WE 09/06/15 08/02/16 [Vitamin D2 (50,000 UNIT)] LORazepam [Ativan] 1 mg PO BID 02/02/16 08/02/16 PrednisoLONE Acetate 1% Opth 1 drop OP QID 02/02/16 08/02/16 [PredFORTE 1%] Timolol Maleate 0.5% 1 drop OP BID 02/02/16 08/02/16 Atropine 1% Opth Drops 1 drop OP BID 02/15/16 08/02/16 Oxycodone HCl/Acetaminophen 1 each PO Q6H PRN 02/15/16 08/02/16 [Percocet 5-325 mg Tablet] Insulin ASPART [Novolog Flexpen] 0 unit SQ TIDWM 08/02/16 08/02/16 Insulin Glargine,Hum.rec.anlog 20 unit SQ HS 08/02/16 08/02/16 [Lantus Solostar] Previous Rx's Medication Instructions Recorded Fluconazole [Diflucan] 150 mg PO ONCE #1 tablet 08/05/16 Metoclopramide [Reglan] 10 mg PO Q6HR PRN #15 mls 08/05/16 MetroNIDAZOLE [Flagyl] 500 mg PO TID 13 Days 08/05/16 Vancomycin Oral Soln [Vancocin] 125 mg PO QID #65 ml 08/05/16 Allergies Allergy/AdvReac Type Severity Reaction Status Date / Time hydrocodone Allergy Hives Verified 08/17/16 21:53 All systems ED: reviewed and negative except as stated. Constitutional: Reports: chills. Denies: fever Cardiovascular: Denies: chest pain Respiratory: Denies: cough Gastrointestinal: Reports: abdominal pain, nausea Past Medical History - Past Medical History Attestation: Yes The following information was validated with the patient. 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 Absent: wheezes - Cardiovascular Cardiovascular exam: Present: regular rate, tachycardia - Abdominal Exam Abdominal exam: Present: soft, other (Multiple old surgical scars noted, nonspecific tenderness) - Neurological Exam Neurological exam: Present: alert, oriented X3 - Skin Skin exam: Present: warm, dry Course Course Narrative: This patient presented with symptoms suggestive of DKA. Her blood sugar is well above 700 and she is evidence of ketones. She received 2 L of normal saline. We have started her on insulin drip. I discussed case with the hospitalist to arrange for admission. Vital Signs Temperature 98.4 F 08/17/16 21:50 Pulse Rate 126 08/17/16 21:50 Respiratory Rate 20 08/17/16 21:50 Blood Pressure 160/113 08/17/16 21:50 O2 Sat by Pulse Oximetry 99 08/17/16 21:50 Temperature 98.2 F 08/18/16 04:05 Pulse Rate 102 08/18/16 02:26 Respiratory Rate 14 08/18/16 02:26 Blood Pressure 148/99 08/18/16 02:26 O2 Sat by Pulse Oximetry 99 08/18/16 02:26 Oxygen Delivery Oxygen Delivery Room Air Medical Decision Making - Medical Records Medical records reviewed: Yes I reviewed the patient's medical records. - Lab Data Lab results reviewed: Yes I reviewed the patient's lab results. Result diagrams: 08/17/16 23:11 08/17/16 23:11 Lab Results 08/17/16 08/17/16 08/17/16 Range/Units 21:49 23:11 23:11 WBC 7.8 (4.3-11.1) K/mcL RBC 3.72 L (3.82-4.97) M/mcL Hgb 11.5 (11.5-15.4) g/dL Hct 33.3 L (35.3-44.9) % MCV 89.5 (83.0-100.0) fL MCH 30.9 (28.0-33.3) pg MCHC 34.5 (31.6-35.5) g/dL RDW 11.3 L (11.5-14.5) % Plt Count 434 H (140-400) K/mcL MPV 10.1 (9.4-12.4) fL Immature Gran % 0.3 (0-4) % Seg Neutrophils % 68.2 % Lymphocytes % 23.6 % Monocytes % 5.6 % Eosinophils % 1.3 % Basophils % 1.0 % Neutrophils # 5.4 (1.6-8.9) K/mcL Lymphocytes # 1.9 (0.6-4.6) K/mcL Monocytes # 0.4 (0.0-1.3) K/mcL Eosinophils # 0.1 (0.0-0.6) K/mcL Basophils # 0.1 (0.0-0.2) K/mcL VBG pH (7.32-7.42) pH Units VBG pCO2 (41-51) mmHg VBG pO2 (25-40) mmHg VBG HCO3 (21-27) mEq/L Sodium 127 L (136-145) mEq/L Potassium 4.4 (3.5-4.5) mEq/L Chloride 96 L (98-109) mEq/L Carbon Dioxide 16 L (19-29) mEq/L BUN 21 H (7-20) mg/dL Creatinine 1.29 H (0.57-1.11) mg/dL Est GFR ( Amer) 58 L (> 60) Est GFR (Non-Af Amer) 48 L (> 60) BUN/Creatinine Ratio 16 (6-26) Glucose 792 H* (70-99) mg/dL POC Glucose > 600 H* (58-89) Calculated Osmolality 306 H (280-300) Calcium 8.8 (8.6-10.8) mg/dL Phosphorus 2.7 (2.3-4.7) mg/dL Magnesium 1.8 (1.6-2.6) mg/dL Total Bilirubin 0.3 (0.2-1.2) mg/dL AST 26 (5-34) Units/L ALT 30 (0-55) Units/L Alkaline Phosphatase 129 H (38-126) Units/L Serum Total Protein 6.4 (6.0-8.3) g/dL Albumin 3.0 L (3.5-5.0) g/dL Globulin 3.4 (2.4-3.5) g/dL Albumin/Globulin Ratio 0.9 L (1.1-2.2) Lipase (8-78) Units/L Beta-Hydroxybutyric Acd 0.41 H (0.02-0.27) mmol/L 08/17/16 08/17/16 08/18/16 Range/Units 23:11 23:11 00:23 WBC (4.3-11.1) K/mcL RBC (3.82-4.97) M/mcL Hgb (11.5-15.4) g/dL Hct (35.3-44.9) % MCV (83.0-100.0) fL MCH (28.0-33.3) pg MCHC (31.6-35.5) g/dL RDW (11.5-14.5) % Plt Count (140-400) K/mcL MPV (9.4-12.4) fL Immature Gran % (0-4) % Seg Neutrophils % % Lymphocytes % % Monocytes % % Eosinophils % % Basophils % % Neutrophils # (1.6-8.9) K/mcL Lymphocytes # (0.6-4.6) K/mcL Monocytes # (0.0-1.3) K/mcL Eosinophils # (0.0-0.6) K/mcL Basophils # (0.0-0.2) K/mcL VBG pH 7.36 (7.32-7.42) pH Units VBG pCO2 30 L (41-51) mmHg VBG pO2 125 H (25-40) mmHg VBG HCO3 16.9 L (21-27) mEq/L Sodium (136-145) mEq/L Potassium (3.5-4.5) mEq/L Chloride (98-109) mEq/L Carbon Dioxide (19-29) mEq/L BUN (7-20) mg/dL Creatinine (0.57-1.11) mg/dL Est GFR ( Amer) (> 60) Est GFR (Non-Af Amer) (> 60) BUN/Creatinine Ratio (6-26) Glucose (70-99) mg/dL POC Glucose 533 H* (58-89) Calculated Osmolality (280-300) Calcium (8.6-10.8) mg/dL Phosphorus (2.3-4.7) mg/dL Magnesium (1.6-2.6) mg/dL Total Bilirubin (0.2-1.2) mg/dL AST (5-34) Units/L ALT (0-55) Units/L Alkaline Phosphatase (38-126) Units/L Serum Total Protein (6.0-8.3) g/dL Albumin (3.5-5.0) g/dL Globulin (2.4-3.5) g/dL Albumin/Globulin Ratio (1.1-2.2) Lipase 59 (8-78) Units/L Beta-Hydroxybutyric Acd (0.02-0.27) mmol/L 08/18/ Range/Units 00:28 WBC (4.3-11.1) K/mcL RBC (3.82-4.97) M/mcL Hgb (11.5-15.4) g/dL Hct (35.3-44.9) % MCV (83.0-100.0) fL MCH (28.0-33.3) pg MCHC (31.6-35.5) g/dL RDW (11.5-14.5) % Plt Count (140-400) K/mcL MPV (9.4-12.4) fL Immature Gran % (0-4) % Seg Neutrophils % % Lymphocytes % % Monocytes % % Eosinophils % % Basophils % % Neutrophils # (1.6-8.9) K/mcL Lymphocytes # (0.6-4.6) K/mcL Monocytes # (0.0-1.3) K/mcL Eosinophils # (0.0-0.6) K/mcL Basophils # (0.0-0.2) K/mcL VBG pH (7.32-7.42) pH Units VBG pCO2 (41-51) mmHg VBG pO2 (25-40) mmHg VBG HCO3 (21-27) mEq/L Sodium (136-145) mEq/L Potassium (3.5-4.5) mEq/L Chloride (98-109) mEq/L Carbon Dioxide (19-29) mEq/L BUN (7-20) mg/dL Creatinine (0.57-1.11) mg/dL Est GFR ( Amer) (> 60) Est GFR (Non-Af Amer) (> 60) BUN/Creatinine Ratio (6-26) Glucose (70-99) mg/dL POC Glucose 518 H* (58-89) Calculated Osmolality (280-300) Calcium (8.6-10.8) mg/dL Phosphorus (2.3-4.7) mg/dL Magnesium (1.6-2.6) mg/dL Total Bilirubin (0.2-1.2) mg/dL AST (5-34) Units/L ALT (0-55) Units/L Alkaline Phosphatase (38-126) Units/L Serum Total Protein (6.0-8.3) g/dL Albumin (3.5-5.0) g/dL Globulin (2.4-3.5) g/dL Albumin/Globulin Ratio (1.1-2.2) Lipase (8-78) Units/L Beta-Hydroxybutyric Acd (0.02-0.27) mmol/L Critical Care Time Total Critical Care Time: 30 Attestation: There was a high probability of life-threatening deterioration in the course this patient's care required my daily intervention. Total critical care time of 30 minutes exclusive of procedures
[2016-08-17 23:21] LABS: Basophils # 0.1 K/mcL (0.0-0.2); Eosinophils # 0.1 K/mcL (0.0-0.6); Eosinophils % 1.3 %; Hematocrit 33.3 % (35.3-44.9); Hemoglobin 11.5 g/dL (11.5-15.4); Immature Granulocytes % 0.3 % (0-4); Lymphocytes # 1.9 K/mcL (0.6-4.6); Lymphocytes % 23.6 %; Mean Corpuscular HGB Conc 34.5 g/dL (31.6-35.5); Mean Corpuscular Hemoglobin 30.9 pg (28.0-33.3); Mean Corpuscular Volume 89.5 fL (83.0-100.0); Mean Platelet Volume 10.1 fL (9.4-12.4); Monocytes # 0.4 K/mcL (0.0-1.3); Monocytes % 5.6 %; Neutrophils # 5.4 K/mcL (1.6-8.9); Platelet Count 434 K/mcL (140-400); Red Blood Count 3.72 M/mcL (3.82-4.97); Red Cell Distribution Width 11.3 % (11.5-14.5); Segmented Neutrophils % 68.2 %
[2016-08-17] MEDS: 0.9 % Sodium Chloride 1,000 ML IVC SCH ×2 (23:27→23:55)
[2016-08-17 23:30] LABS: VBG HCO3 16.9 mEq/L (21-27); VBG PH 7.36 pH Units (7.32-7.42)
[2016-08-17 23:36] LABS: Albumin/Globulin Ratio 0.9 (1.1-2.2); Bilirubin,Total 0.3 mg/dL (0.2-1.2); Calcium 8.8 mg/dL (8.6-10.8); Globulin 3.4 g/dL (2.4-3.5); Magnesium 1.8 mg/dL (1.6-2.6); Phosphorous 2.7 mg/dL (2.3-4.7); Potassium 4.4 mEq/L (3.5-4.5); Total Protein 6.4 g/dL (6.0-8.3)
[2016-08-17 23:38] LABS: Beta-Hydroxybutyric Acid 0.41 mmol/L (0.02-0.27)
[2016-08-18] MEDS ORDERED: *HR* HYDROmorphone (PF) 1 MG/ML SYRINGE IVP ONE (00:02)
[2016-08-18] MEDS ORDERED: *HR* Dextrose 50 % in Water (Syg) 50 ML SYRINGE IVP PRN ×4 (00:12→14:18)
[2016-08-18] MEDS ORDERED: Insulin Human Regular 100 UNIT in 0.9 % Sodium Chloride 100 ML IVC SCH ×2 (00:15→03:00)
[2016-08-18] MEDS ORDERED: D5% in 0.45% NACL 1,000 ML IVC PRN (01:02)
[2016-08-18] MEDS ORDERED: D5% in 0.45% NACL w KCl 20 MEQ/1,000 ML MLS IVC PRN (01:02)
--- NOTE | 2016-08-18 01:11 | Internal Med History&Physical ---
<Erich Armstrong - Last Filed: 08/18/16 06:24> Date of Encounter: 08/18/16 Time of Encounter: 01:02 Assessment and Plan (1) Hyperglycemia Current visit: Yes Status: Acute -BS 792. Not acidotic, calc osmo 306. -Patient has had similar problem before. Does state abdominal pain similar to that presentation -Patient does not have AMS. Has access to insulin and humalog -2L NS given in ED Plan -Continue insulin drip till <250, then switch to basal bolus -Switch 1/2NS in dextrose when BS <250 -Continue to trend electrolytes. Replace K as needed. (2) Renal insufficiency Current visit: Yes Status: Acute -Likely due to dehydration. patient still making urine. Denies CVA tenderness. Has had previous elevations on admission. -Will redraw BMP following fluid administration. -Consider getting FENa, urine osmo if no improvement. (3) C. difficile diarrhea Current visit: Yes Status: Acute -Discharged from hospital 2 weeks ago. Was on vanc and miller -patient continues to have diarrhea. Diarrhea has improved. -Does have LLQ pain described as "sharp and stabbing" "constant". Patient not in distress. No pain elicit with firm pressure with stereoscope, however tender on palpation. No imaging at this time or colonoscopy. Plan -Consider stool culture, cdiff, isolation precautions, abx (4) Hypertension Current visit: Yes Status: Acute -Currently normotensive. -HR elevated 90's and previoulsy >140/90. Consider starting beta magdalena if HTN persist. Qualifiers: Hypertension type: unspecified secondary hypertension Qualified Code(s): I15.9 - Secondary hypertension, unspecified; I15 - Secondary hypertension (5) Diabetes mellitus type 1 Current visit: Yes Status: Chronic -Long standing uncontrolled DM. Under the management of medical professional. Non-compliance? -Will manage sugars Plan -Consider endocrine consult. Qualifiers: Diabetes mellitus complication status: with ketoacidosis Diabetes mellitus complication detail: without coma Qualified Code(s): E10.10 - Type 1 diabetes mellitus with ketoacidosis without coma Internal Medicine - H&P: HPI Chief complaint: hyperglycemia Admitted From: Emergency Dept Plans for Post Hospital Care: Home History of present illness: Ms. Sierra is a 30 year old female, extensive PMH, admitted for hyperglycemia and PAOLA. Patient admits to LLQ abdominal pain for the past 3 days and has gotten progressively worse. Now described as sharp and stabbing. Worsen by laying flat. Nothing alleviates the pain. Admits to nausea, vomiting, bloating and cramping abdominal pain in RUQ, LUQ.Denies fever, GARIBAY, melena, hematochezia. Was recently released from [facility] due to cdiff treatment with vanc and miller. Still having diarrhea, but feels like it is less than before. Denies Concerning hyperglycemia: Been admitted for HHS/DKA before. Does take insulin ( Novalog 10 and lantus 40). Has never had her sugars well controlled since childhood. Is managed by a medical professional. Is going to seek endocrine referral soon for DM. Concerning PAOLA: Patient is still producing yellow urine. Denies hematuria, CVA tenderness, dysuria, vaginal discharge or pain. Past Med Surg Social Fam HX - Past Medical History Medical history: arthritis, cirrhosis, diabetes, GERD, glaucoma, hyperlipidemia , hypertension, liver disease, osteoporosis, other Psychiatric history: anxiety - Past Surgical History Surgical History: , cholecystectomy, sinus surgery, other - Social History Smoking Status: Never smoker Smokeless Tobacco Status: No Alcohol use: none Drug use: none - Family History Grandmother Family Member Ethnicity: Non- Living Status: Still Living Hx Family Cardiac Disorders: No Hx Family Respiratory Disorders: No Hx Family Cancer: No Hx Family GI Disorders: No Hx Family Endocrine Disorder: Yes (type 2 diabetes) Hx Family Neuromuscular Disorders: No Hx Family Neurologic Disorders: Yes (stroke) Hx Family HEENT Disorders: No Hx Family Autoimmune Disorders: No Internal Medicine - H&P: Meds Ergocalciferol (VITAMIN D2) [Vitamin D2 (50,000 UNIT)] 50,000 unit PO WE [History] LORazepam [Ativan] 1 mg PO BID 02/02/16 [History] PrednisoLONE Acetate 1% Opth [PredFORTE 1%] 1 drop OP QID 02/02/16 [History] Timolol Maleate 0.5% 1 drop OP BID 02/02/16 [History] Atropine 1% Opth Drops 1 drop OP BID 02/15/16 [History] Oxycodone HCl/Acetaminophen [Percocet 5-325 mg Tablet] 1 each PO Q6H PRN [History] Insulin ASPART [Novolog Flexpen] 0 unit SQ TIDWM 08/02/16 [History] Insulin Glargine,Hum.rec.anlog [Lantus Solostar] 20 unit SQ HS 08/02/16 [History ] Fluconazole [Diflucan] 150 mg PO ONCE #1 tablet 08/05/16 [Rx] Metoclopramide [Reglan] 10 mg PO Q6HR PRN #15 mls 08/05/16 [Rx] MetroNIDAZOLE [Flagyl] 500 mg PO TID 13 Days 08/05/16 [Rx] Vancomycin Oral Soln [Vancocin] 125 mg PO QID #65 ml 08/05/16 [Rx] Allergies hydrocodone Allergy (Verified 08/17/16 21:53) Hives All Systems PM: A 10-system review of systems was performed and is negative for pertinent findings except as documented above in the HPI. 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) - Cardiovascular Cardiovascular ROS IM: no chest pain, no diaphoresis, no dyspnea, no lightheadedness, no palpitations, no syncope - Respiratory Respiratory: no cough, no dyspnea, no wheezing, no excessive phlegm production - Gastrointestinal Gastrointestinal: as per HPI, abdominal pain - Genitourinary Genitourinary: as per HPI - Constitutional Vitals: Temp Pulse Resp BP Pulse Ox 98.4 F 110 20 153/103 99 08/17/16 21:50 08/18/16 00:00 08/18/16 00:00 08/18/16 00:00 08/18/16 00:00 General appearance: Present: mild distress, A&O X 3, answers questions appropriately - Head Head exam: Present: atraumatic, normocephalic - Eye Additional comments: blind. Normal appearing iris, pupil, conjunctiva. - Respiratory Respiratory exam: Present: CTAB. Absent: accessory muscle use, rales, rhonchi, wheezes - Cardiovascular Cardiovascular exam: Present: RRR, +S1, +S2. Absent: diastolic murmur, gallop, rubs, systolic murmur - GI/Abdominal GI/Abdominal exam: Present: distended, normal bowel sounds, tenderness (LLQ), no peritoneal signs. Absent: diminished bowel sounds Additional comments: Abdomen appears bloated during exam. When patient distracted and talking to patient, her abdomen not as bloated. Placing stethoscope on LLQ with firm pressure less painful than palpation. - Neurological Exam Neurological exam: Present: oriented X3 - Psychiatric Psychiatric exam: Present: normal affect, normal mood - Other Additional findings: No CVA tenderness Internal Med - H&P Results - Labs CBC & Chem 7: 08/17/16 23:11 08/17/16 23:11 <Matheus Sanchez - Last Filed: 08/18/16 06:49> Date of Encounter: 08/18/16 Internal Medicine - H&P: HPI History of present illness: Ms. Sierra is a 30 year old female All Systems PM: A 10-system review of systems was performed and is negative for pertinent findings except as documented above in the HPI. - Constitutional Vitals: Temp Pulse Resp BP Pulse Ox 98.2 F 95 14 137/95 99 08/18/16 04:05 08/18/16 06:00 08/18/16 06:00 08/18/16 06:00 08/18/16 06:00 Internal Med - H&P Results - Labs CBC & Chem 7: 08/17/16 23:11 08/17/16 23:11 - Attending Attestation I personally interviewed and examined this patient and my medical decision- making was reviewed with the Resident Physician. I agree with the documented findings, disposition and treatment plan as described. Patient was initially admitted as a case of DKA but does not strictly meet that criteria, she has pure hyperglycemia with some ketosis. We will manage as such and her associated co-morbidities. Abd/pelvic CT ordered for evaluation of worsening abdominal distension and pain in the setting of C-Diff treatment.
[2016-08-18] MEDS ORDERED: 0.9 % Sodium Chloride 1,000 ML IVC SCH (01:15)
[2016-08-18] MEDS ORDERED: Vancomycin Oral Soln 250 MG/2.5 ML UDC PO SCH (02:45)
[2016-08-18] MEDS: *HR* OxyCODONE/APAP 5/325 TABLET PO PRN ×3 (03:09→14:29)
[2016-08-18] MEDS: metroNIDAZOLE 500 MG TABLET PO SCH ×4 (03:41→20:35)
[2016-08-18 05:46] LABS: Magnesium 1.2 mg/dL (1.6-2.6); Phosphorous 1.8 mg/dL (2.3-4.7)
[2016-08-18 07:56] LABS: VBG PH 7.39 pH Units (7.32-7.42)
[2016-08-18 08:09] LABS: BUN/Creatinine Ratio 19 (6-26); Blood Urea Nitrogen 12 mg/dL (7-20); Calcium 7.7 mg/dL (8.6-10.8); Carbon Dioxide 20 mEq/L (19-29); Chloride 109 mEq/L (98-109); Glucose 155 mg/dL (70-99); Osmolality,Calculated 289 (280-300); Potassium 3.7 mEq/L (3.5-4.5); eGFR For African Americans > 60 (> 60); eGFR For Non-African Americans > 60 (> 60)
[2016-08-18 08:12] LABS: Sodium 138 mEq/L (136-145)
[2016-08-18] MEDS: Atropine Sulfate 1% 40 DROP/2 ML BOTTLE BOTH EYES SCH ×2 (08:49→20:36)
[2016-08-18] MEDS: PrednisoLONE Acetate 1% Opth 5 ML BOTTLE BOTH EYES SCH ×4 (08:49→20:36)
[2016-08-18] MEDS: Vancomycin Oral Soln 250 MG/2.5 ML UDC PO SCH ×4 (09:44→20:35)
[2016-08-18] MEDS: 0.9 % Sodium Chloride 1,000 ML IVC SCH ×6 (09:44→21:05)
--- NOTE | 2016-08-18 09:46 | Event Note ---
Date of Encounter: 08/18/16 Time of Encounter: 09:45 No endocrinology coverage for consult.
--- NOTE | 2016-08-18 13:50 | Event Note ---
Date of Encounter: 08/18/16 Time of Encounter: 13:50 30 F with uncontrolled DM Admitted and being managed for Hyperglycemia and dehydration patient with hx of C.diff, questionable compliance Has not had any BM here Abd CT scan with hepatomegaly, constipation and distended bladder Seen at bedside, complains of abdominal discomfort Exam: VSS, NAD HEENT: Moist oral mucosa Chest: CTAB Heart: S1, S2 only, no m/g/r Abdomen: Firm, distended, no visible masses, BS present and normoactive Extremities: NO edema labs and imaging reviewed A/P *Hyperglycemia resolved, bridge and feed patient *Urinary retention-Place Elliott STAT, RN informed *Constipation: Senna/Colace/ *DM: As in hyperglycemia *C.diff: Send stool for c.diff, continue current care *Vaginal candidiasis: One dose fluconazole
[2016-08-18] MEDS ORDERED: Fluconazole 100 MG TABLET PO ONE (14:07)
[2016-08-18] MEDS ORDERED: Insulin DETEMIR 100 UNIT/ML X5UNITS SQ ONE (14:17)
[2016-08-18] MEDS ORDERED: Dextrose Gel 15 GM PO PRN ×2 (14:18)
[2016-08-18] MEDS ORDERED: D5% in Water 1,000 ML IVC PRN (14:18)
[2016-08-18 14:32] LABS: Bilirubin,Urine Negative (Negative); Blood,Urine Moderate (Negative); Clarity,Urine Cloudy (Clear); Color,Urine Yellow (Yellow); Glucose,Urine (UA) 250 mg/dL (Normal); Ketones,Urine Negative (Negative); Leukocyte Esterase,Urine Moderate (Negative); Nitrite,Urine Negative (Negative); PH,Urine 6.5 pH Units (5.0-8.0); Protein,Urine 30 mg/dL (Neg-Trace); Urobilinogen,Urine Normal (Normal)
[2016-08-18 14:35] LABS: Bacteria,Urine Many per hpf (None-Few); RBC,Urine 0-3 per hpf (0-3); Squamous Epithelial Cell,Urine Many per lpf (None-Few); WBC,Urine 30-50 per hpf (0-3)
[2016-08-18 14:44] LABS: Hyaline Casts,Urine None Seen per lpf (None-Few)
[2016-08-18] MEDS ORDERED: Bisacodyl 10 MG RECTAL SUPPOSITORY RC ONE (16:30)
[2016-08-18] MEDS: Insulin LISPRO 300 UNITS/3 ML VIAL SQ SCH ×2 (16:35→20:36)
[2016-08-18] MEDS: *HR* Heparin 5,000 UNIT/ML VIAL SQ SCH (18:41)
--- NOTE | 2016-08-18 19:36 | Electrocardiograph Report ---
[address] [place], [place] [address] Test Date: 2016-08-17 Pat Name: Hilton Sierra Department: 102 Room: 10 Gender: F Client Service Coordinator: : 1985 Requested By: Rakna Kapoor Order Number: [id number] Reading MD: Erick Monte MD Measurements Intervals [place] Rate: 117 P: 64 MN: 116 QRS: 88 QRSD: 88 T: 33 QT: 308 QTc: 378 Interpretive Statements SINUS TACHYCARDIA WITH SHORT MN INTERVAL Poor R wave progression Electronically Signed On 08-18-2016 19:34:41 EDT by Erick Monte MD
[2016-08-18] MEDS: Sennosides 8.6 MG TABLET PO SCH (20:35)
[2016-08-19] MEDS: *HR* OxyCODONE/APAP 5/325 TABLET PO PRN ×4 (00:10→21:52)
[2016-08-19] MEDS: 0.9 % Sodium Chloride 1,000 ML IVC SCH ×4 (02:28→19:44)
[2016-08-19 04:09] LABS: Hemoglobin 10.8 g/dL (11.5-15.4)
[2016-08-19 04:11] LABS: Basophils % 2.5 %; Eosinophils % 2.5 %; Hematocrit 32.4 % (35.3-44.9); Immature Granulocytes % 0.6 % (0-4); Lymphocytes # 0.5 K/mcL (0.6-4.6); Lymphocytes % 28.9 %; Mean Corpuscular HGB Conc 33.3 g/dL (31.6-35.5); Mean Corpuscular Hemoglobin 30.5 pg (28.0-33.3); Mean Corpuscular Volume 91.5 fL (83.0-100.0); Mean Platelet Volume 10.1 fL (9.4-12.4); Monocytes # 0.2 K/mcL (0.0-1.3); Monocytes % 13.2 %; Neutrophils # 0.8 K/mcL (1.6-8.9); Platelet Count 321 K/mcL (140-400); Red Blood Count 3.54 M/mcL (3.82-4.97); Red Cell Distribution Width 11.3 % (11.5-14.5); Segmented Neutrophils % 52.3 %
[2016-08-19 04:24] LABS: BUN/Creatinine Ratio 10 (6-26); Blood Urea Nitrogen 6 mg/dL (7-20); Calcium 7.8 mg/dL (8.6-10.8); Carbon Dioxide 22 mEq/L (19-29); Chloride 110 mEq/L (98-109); Glucose 80 mg/dL (70-99); Osmolality,Calculated 283 (280-300); Potassium 4.1 mEq/L (3.5-4.5); Sodium 138 mEq/L (136-145); eGFR For African Americans > 60 (> 60); eGFR For Non-African Americans > 60 (> 60)
[2016-08-19 04:42] LABS: Platelet Estimate Normal (Normal)
[2016-08-19] MEDS: *HR* Heparin 5,000 UNIT/ML VIAL SQ SCH ×2 (06:16→18:18)
[2016-08-19] MEDS: Vancomycin Oral Soln 250 MG/2.5 ML UDC PO SCH ×4 (07:25→20:06)
[2016-08-19] MEDS: Sennosides 8.6 MG TABLET PO SCH ×2 (07:25→20:06)
[2016-08-19] MEDS: metroNIDAZOLE 500 MG TABLET PO SCH ×3 (07:25→20:06)
[2016-08-19] MEDS: Atropine Sulfate 1% 40 DROP/2 ML BOTTLE BOTH EYES SCH ×2 (07:26→20:06)
[2016-08-19] MEDS: PrednisoLONE Acetate 1% Opth 5 ML BOTTLE BOTH EYES SCH ×4 (07:26→20:05)
[2016-08-19] MEDS: Insulin LISPRO 300 UNITS/3 ML VIAL SQ SCH ×4 (07:44→20:35)
[2016-08-19] MEDS: *HR* Morphine 2 MG/ML SYRINGE IVP PRN ×3 (12:23→23:33)
--- NOTE | 2016-08-19 18:32 | Internal Med Progress Note ---
Date of Encounter: 08/19/16 Time of Encounter: 10:00 - Assessment and plan (1) DKA (diabetic ketoacidoses) Current Visit: No Status: Acute Assessment and plan: Resolved now. Continue basal and sliding scale insulin. Qualifiers: Diabetes mellitus type: type 1 Diabetes mellitus complication detail: without coma Qualified Code(s): E10.10 - Type 1 diabetes mellitus with ketoacidosis without coma (2) Abdominal pain Current Visit: No Status: Acute Assessment and plan: Etiology is undetermined. Possibly due to colitis. Abdominal CAT scan was done yesterday, no acute changes identified. - We will continue treat colitis with by mouth vancomycin. -Symptomatic treatment Qualifiers: Abdominal location: left lower quadrant Qualified Code(s): R10.32 - Left lower quadrant pain (3) Diabetes mellitus type 1 Current Visit: Yes Status: Chronic Assessment and plan: Continue a slow and sliding scale insulin treatment Qualifiers: Diabetes mellitus complication status: with ketoacidosis Diabetes mellitus complication detail: without coma Qualified Code(s): E10.10 - Type 1 diabetes mellitus with ketoacidosis without coma (4) DVT prophylaxis Current Visit: No Status: Acute Assessment and plan: Heparin subcutaneously (5) C. difficile diarrhea Current Visit: Yes Status: Acute Assessment and plan: Patient has history of C Diff recently. She has diarrhea on admission. Now the diarrhea has resolved. Will continue treat patient as recurrent C diff colitis with by mouth vancomycin - Time Spent With Patient 25 - 35 minutes - Subjective Interval history: Patient is a 30-year-old female admitted for DKA. Her past medical history is significant for type 1 diabetes, hypertension, hyperlipidemia, liver disease, glaucoma I saw and examined the patient. She complains of left lower quadrant abdominal pain. Vital signs stable. Abdomen has tenderness on palpation, no rebound, no guarding. Her last bowel movement was last night. Patient can passing gas. - Constitutional Vitals: Temp Pulse Resp BP Pulse Ox 98.1 F 107 12 123/91 95 08/19/16 15:15 08/19/16 15:15 08/19/16 15:15 08/19/16 15:15 08/19/16 15:15 General appearance: Present: mild distress, A&O X 3, answers questions appropriately - Head Head exam: Present: atraumatic, normocephalic - Eye Eye exam: Present: PERRL, conjuntiva pink, sclera anicteric Pupils: Present: PERRL - Neck Neck exam general surgery: Present: supple, trachea midline. Absent: lymphadenopathy - Respiratory Respiratory exam: Present: CTAB. Absent: accessory muscle use, rales, rhonchi, wheezes - Cardiovascular Cardiovascular exam: Present: RRR, +S1, +S2. Absent: diastolic murmur, gallop, rubs, systolic murmur - GI/Abdominal GI/Abdominal exam: Present: normal bowel sounds, soft, tenderness (LLQ tenderness without guarding or rebound), no peritoneal signs. Absent: distended - Extremities Exam Extremities exam: Present: warm, radial pulses palpable and symetrical. Absent : calf tenderness, cyanotic, pedal edema - Neurological Exam Neurological exam: Present: CN II-XII intact, oriented X3, no focal deficits. Absent: pronater drift, facial droop, speech deficit - Skin Skin exam: Present: dry, intact Internal Medicine: Result - Labs CBC & Chem 7: 08/19/16 03:37 08/19/16 03:37 Labs: Short CBC 08/19/16 Range/Units 03:37 WBC 1.6 L D (4.3-11.1) K/mcL Hgb 10.8 L (11.5-15.4) g/dL Hct 32.4 L (35.3-44.9) % Plt Count 321 (140-400) K/mcL Neutrophils # 0.8 L (1.6-8.9) K/mcL BMP 08/19/16 03:37 Sodium 138 Potassium 4.1 Chloride 110 H Carbon Dioxide 22 BUN 6 L Creatinine 0.61 Glucose 80 Calcium 7.8 L Consult Discharge Plan - Plan Referrals: Zehra Jamison, [employer]ESS FINISHER [Primary Care Provider] - (office is closed at this time)
[2016-08-19] MEDS ORDERED: Insulin DETEMIR 100 UNIT/ML X5UNITS SQ SCH (21:00)
[2016-08-20 03:09] LABS: Eosinophils # 0.2 K/mcL (0.0-0.6); Eosinophils % 7.8 %; Hematocrit 30.8 % (35.3-44.9); Hemoglobin 10.3 g/dL (11.5-15.4); Immature Granulocytes % 0.5 % (0-4); Lymphocytes # 0.7 K/mcL (0.6-4.6); Mean Corpuscular HGB Conc 33.4 g/dL (31.6-35.5); Mean Corpuscular Volume 92.8 fL (83.0-100.0); Mean Platelet Volume 9.6 fL (9.4-12.4); Monocytes # 0.3 K/mcL (0.0-1.3); Monocytes % 15.6 %; Neutrophils # 0.7 K/mcL (1.6-8.9); Platelet Count 271 K/mcL (140-400); Red Blood Count 3.32 M/mcL (3.82-4.97); Red Cell Distribution Width 11.8 % (11.5-14.5); Segmented Neutrophils % 38.1 %
[2016-08-20 03:21] LABS: BUN/Creatinine Ratio 5 (6-26); Calcium 7.9 mg/dL (8.6-10.8); Carbon Dioxide 25 mEq/L (19-29); Chloride 113 mEq/L (98-109); Glucose 58 mg/dL (70-99); Osmolality,Calculated 286 (280-300); Potassium 3.7 mEq/L (3.5-4.5); Sodium 141 mEq/L (136-145); eGFR For African Americans > 60 (> 60); eGFR For Non-African Americans > 60 (> 60)
[2016-08-20 03:25] LABS: Blood Urea Nitrogen 3 mg/dL (7-20)
[2016-08-20 03:42] LABS: Platelet Estimate Normal (Normal)
[2016-08-20] MEDS: 0.9 % Sodium Chloride 1,000 ML IVC SCH ×3 (04:05→23:17)
[2016-08-20] MEDS: *HR* OxyCODONE/APAP 5/325 TABLET PO PRN ×3 (06:15→20:22)
[2016-08-20] MEDS: *HR* Heparin 5,000 UNIT/ML VIAL SQ SCH ×2 (06:16→17:42)
[2016-08-20] MEDS: Insulin LISPRO 300 UNITS/3 ML VIAL SQ SCH ×4 (07:33→21:32)
[2016-08-20] MEDS: PrednisoLONE Acetate 1% Opth 5 ML BOTTLE BOTH EYES SCH ×4 (07:51→20:25)
[2016-08-20] MEDS: metroNIDAZOLE 500 MG TABLET PO SCH (07:51)
[2016-08-20] MEDS: Sennosides 8.6 MG TABLET PO SCH (07:51)
[2016-08-20] MEDS: Atropine Sulfate 1% 40 DROP/2 ML BOTTLE BOTH EYES SCH ×2 (07:51→21:32)
[2016-08-20] MEDS: Vancomycin Oral Soln 250 MG/2.5 ML UDC PO SCH ×4 (07:51→20:23)
[2016-08-20] MEDS: *HR* Morphine 2 MG/ML SYRINGE IVP PRN ×3 (07:54→23:09)
--- NOTE | 2016-08-20 14:45 | Internal Med Progress Note ---
Date of Encounter: 08/20/16 Time of Encounter: 10:00 - Assessment and plan (1) DKA (diabetic ketoacidoses) Current Visit: No Status: Acute Assessment and plan: Resolved now. Continue basal and sliding scale insulin. Qualifiers: Diabetes mellitus type: type 1 Diabetes mellitus complication detail: without coma Qualified Code(s): E10.10 - Type 1 diabetes mellitus with ketoacidosis without coma (2) Abdominal pain Current Visit: No Status: Acute Assessment and plan: Etiology is undetermined. Possibly due to colitis. Abdominal CAT scan was done , no acute changes identified. - We will continue treat colitis with by mouth vancomycin. -Symptomatic treatment Qualifiers: Abdominal location: left lower quadrant Qualified Code(s): R10.32 - Left lower quadrant pain (3) Diabetes mellitus type 1 Current Visit: Yes Status: Chronic Assessment and plan: Continue basal and sliding scale insulin treatment Qualifiers: Diabetes mellitus complication status: with ketoacidosis Diabetes mellitus complication detail: without coma Qualified Code(s): E10.10 - Type 1 diabetes mellitus with ketoacidosis without coma (4) DVT prophylaxis Current Visit: No Status: Acute Assessment and plan: Heparin subcutaneously (5) C. difficile diarrhea Current Visit: Yes Status: Acute Assessment and plan: Patient has history of C Diff recently. She has diarrhea on admission. Now the diarrhea has resolved. Will continue treat patient as recurrent C diff colitis with by mouth vancomycin (6) Leukocytopenia Current Visit: Yes Status: Acute Assessment and plan: Etiology is undetermined. White count trended up today. Medication list reviewed, Flagyl has been discontinued. We will close follow-up WBC change. Qualifiers: Leukopenia type: neutropenia Neutropenia type: unspecified Qualified Code (s): D70.9 - Neutropenia, unspecified - Time Spent With Patient 25 - 35 minutes - Subjective Interval history: Patient is a 30-year-old female admitted for DKA. Her past medical history is significant for type 1 diabetes, hypertension, hyperlipidemia, liver disease, glaucoma I saw and examined the patient. She still complains of left lower quadrant abdominal pain and abdominal distention. Vital signs stable. She can pass gas but no bowel movement since the day before yesterday. CT abdomen has been repeated, result is unremarkable. We will continue supportive treatment and symptomatic treatment. Pt has leukocytopenia, her medication list has been reviewed, Flagyl by mouth has been discontinued. Will closely follow WBC count. - Constitutional Vitals: Temp Pulse Resp BP Pulse Ox 97.5 F L 91 16 139/96 99 08/20/16 11:17 08/20/16 12:15 08/20/16 11:17 08/20/16 11:17 08/20/16 11:17 General appearance: Present: mild distress, A&O X 3, answers questions appropriately - Head Head exam: Present: atraumatic, normocephalic - Eye Eye exam: Present: PERRL, conjuntiva pink, sclera anicteric Pupils: Present: PERRL - Neck Neck exam general surgery: Present: supple, trachea midline. Absent: lymphadenopathy - Respiratory Respiratory exam: Present: CTAB. Absent: accessory muscle use, rales, rhonchi, wheezes - Cardiovascular Cardiovascular exam: Present: RRR, +S1, +S2. Absent: diastolic murmur, gallop, rubs, systolic murmur - GI/Abdominal GI/Abdominal exam: Present: distended, normal bowel sounds, soft, tenderness ( No guarding or rebound), no peritoneal signs - Extremities Exam Extremities exam: Present: warm, radial pulses palpable and symetrical. Absent : calf tenderness, cyanotic, pedal edema - Neurological Exam Neurological exam: Present: CN II-XII intact, oriented X3, no focal deficits. Absent: pronater drift, facial droop, speech deficit - Skin Skin exam: Present: dry, intact Internal Medicine: Result - Labs CBC & Chem 7: 08/20/16 03:00 08/20/16 03:00 Labs: Short CBC 08/20/16 Range/Units 03:00 WBC 1.9 L (4.3-11.1) K/mcL Hgb 10.3 L (11.5-15.4) g/dL Hct 30.8 L (35.3-44.9) % Plt Count 271 (140-400) K/mcL Neutrophils # 0.7 L (1.6-8.9) K/mcL BMP 08/20/16 03:00 Sodium 141 Potassium 3.7 Chloride 113 H Carbon Dioxide 25 BUN 3 L Creatinine 0.57 Glucose 58 L Calcium 7.9 L - Impressions Impressions Abdomen/Pelvis CT 08/20/16 09:39 IMPRESSION: Will trace bilateral pleural effusions. There is minimal questionable septal thickening lung bases. Correlation for possibly mild interstitial edema is recommended. Small moderate amount of free fluid in the pelvis. Within the subcutaneous fat of the lower abdominal wall. Overall increased attenuation of the liver, nonspecific finding which can be seen with iron overload states, glycogen storage disease, and administration of certain iodine containing medications such as amiodarone. D/ / Xochitl Rod Cha, MD / Xochitl Rod Cha, MD Interpreting Provider: Xochitl Rod Cha, MD Consult Discharge Plan - Plan Referrals: Zehra Jamison CNP [Primary Care Provider] - (office is closed at this time)
[2016-08-20] MEDS: Insulin DETEMIR 100 UNIT/ML X5UNITS SQ SCH (21:31)
[2016-08-21] MEDS ORDERED: *HR* HYDROmorphone (PF) 1 MG/ML SYRINGE IM ONE (04:03)
[2016-08-21] MEDS ORDERED: *HR* HYDROmorphone 2 MG/ML SYRINGE IVP PRN (04:04)
[2016-08-21 04:49] LABS: Basophils # 0.1 K/mcL (0.0-0.2); Basophils % 1.5 %; Eosinophils # 0.2 K/mcL (0.0-0.6); Eosinophils % 5.8 %; Hemoglobin 10.5 g/dL (11.5-15.4); Immature Granulocytes % 0.2 % (0-4); Lymphocytes # 1.3 K/mcL (0.6-4.6); Lymphocytes % 32.3 %; Mean Corpuscular HGB Conc 32.8 g/dL (31.6-35.5); Mean Corpuscular Hemoglobin 30.9 pg (28.0-33.3); Mean Corpuscular Volume 94.1 fL (83.0-100.0); Mean Platelet Volume 9.9 fL (9.4-12.4); Monocytes # 0.4 K/mcL (0.0-1.3); Monocytes % 9.2 %; Neutrophils # 2.1 K/mcL (1.6-8.9); Platelet Count 294 K/mcL (140-400); Red Cell Distribution Width 11.9 % (11.5-14.5)
[2016-08-21 04:59] LABS: BUN/Creatinine Ratio 6 (6-26); Calcium 8.1 mg/dL (8.6-10.8); Carbon Dioxide 23 mEq/L (19-29); Chloride 111 mEq/L (98-109); Glucose 179 mg/dL (70-99); Osmolality,Calculated 289 (280-300); Potassium 4.3 mEq/L (3.5-4.5); Sodium 139 mEq/L (136-145); eGFR For African Americans > 60 (> 60); eGFR For Non-African Americans > 60 (> 60)
[2016-08-21 05:05] LABS: Blood Urea Nitrogen 4 mg/dL (7-20)
[2016-08-21] MEDS: *HR* Heparin 5,000 UNIT/ML VIAL SQ SCH ×2 (05:27→18:40)
[2016-08-21] MEDS: Insulin LISPRO 300 UNITS/3 ML VIAL SQ SCH ×4 (07:55→22:37)
[2016-08-21] MEDS: Vancomycin Oral Soln 250 MG/2.5 ML UDC PO SCH ×2 (07:56→12:52)
[2016-08-21] MEDS: Atropine Sulfate 1% 40 DROP/2 ML BOTTLE BOTH EYES SCH ×2 (07:59→22:37)
[2016-08-21] MEDS: PrednisoLONE Acetate 1% Opth 5 ML BOTTLE BOTH EYES SCH ×4 (07:59→22:37)
[2016-08-21] MEDS: *HR* OxyCODONE/APAP 5/325 TABLET PO PRN ×3 (10:32→23:06)
[2016-08-21] MEDS: 0.9 % Sodium Chloride 1,000 ML IVC SCH (10:33)
[2016-08-21] MEDS ORDERED: Simethicone 80 MG TAB.CHEW PO PRN (10:45)
[2016-08-21] MEDS ORDERED: Polyethylene Glycol 3350 255 GM POWDER PO ONE (11:29)
--- NOTE | 2016-08-21 11:37 | General Surgery Consult Note ---
Date of Encounter: 08/21/16 Time of Encounter: 11:31 Assessment and Plan (1) Obstipation Current Visit: Yes Status: Acute I explained to the patient and family member that I do not think that she actually has C. difficile colitis infection during this admission. I think her symptoms are related to only liquid stool being able through, past the abundant amount of stool. I reviewed the CT scan images from yesterday and from admission on 08/18/2016 and again she has copious amounts of stool throughout the entire colon. Part of this may be her requirement for pain medication. I will go ahead and write for both MiraLAX Gatorade and then molasses enema to help assist with her bowel movements. I will change her diet to clears well. Discussed with patient and family and they agree to the above plan. History of Present Illness Consult date: 08/21/16 Reason for consult: other (Abdominal distension and pain) Requesting physician: Dipti Barksdale History of present illness: The patient is a 30-year-old female with a past medical history significant for diabetes mellitus and acute kidney injury who has had multiple admissions to the hospital due to hyperglycemia, states that 2-3 days prior to admission she had abdominal distention/abdominal pain with diarrhea. She was treated for C. difficile colitis weeks prior to her current presentation. She states that since the admission she has had 1 bowel movement yesterday or yesterday evening. States that the abdominal distention has been present for about 5-6 days. She admits to some nausea but no vomiting and denies any rectal bleeding. I have been asked to evaluate the patient due to her abdominal pain symptoms and distention of unknown origin. Of note; during this admission she was not able to be tested for C. difficile because she had solid stool. Past Med Surg Social Fam HX - Past Medical History Medical history: arthritis, cirrhosis, diabetes, GERD, glaucoma, hyperlipidemia , hypertension, liver disease, osteoporosis, other Psychiatric history: anxiety - Past Surgical History Surgical History: , cholecystectomy, sinus surgery, other - Social History Smoking Status: Never smoker Smokeless Tobacco Status: No Alcohol use: none Drug use: none - Family History Grandmother Family Member Ethnicity: Non- Living Status: Still Living Hx Family Cardiac Disorders: No Hx Family Respiratory Disorders: No Hx Family Cancer: No Hx Family GI Disorders: No Hx Family Endocrine Disorder: Yes (type 2 diabetes) Hx Family Neuromuscular Disorders: No Hx Family Neurologic Disorders: Yes (stroke) Hx Family HEENT Disorders: No Hx Family Autoimmune Disorders: No Hx Family Medical Disorders: Yes (grandmother had stroke) Medications and Allergies Ergocalciferol (VITAMIN D2) [Vitamin D2 (50,000 UNIT)] 50,000 unit PO WE [History] LORazepam [Ativan] 1 mg PO BID 02/02/16 [History] PrednisoLONE Acetate 1% Opth [PredFORTE 1%] 1 drop OP QID 02/02/16 [History] Timolol Maleate 0.5% 1 drop OP BID 02/02/16 [History] Atropine 1% Opth Drops 1 drop OP BID 02/15/16 [History] Oxycodone HCl/Acetaminophen [Percocet 5-325 mg Tablet] 1 tab PO Q6H PRN [History] Insulin ASPART [Novolog Flexpen] 0 unit SQ TIDWM 08/02/16 [History] Insulin Glargine,Hum.rec.anlog [Lantus Solostar] 20 unit SQ HS 08/02/16 [History ] Metoclopramide [Reglan] 10 mg PO Q6HR PRN #15 mls 08/05/16 [Rx] MetroNIDAZOLE [Flagyl] 500 mg PO TID 13 Days 08/05/16 [Rx] Vancomycin Oral Soln [Vancocin] 125 mg PO QID #65 ml 08/05/16 [Rx] Fluconazole [Diflucan] 150 mg PO ONCE PRN 08/18/16 [History] Allergies hydrocodone Allergy (Verified 08/17/16 21:53) Hives Review of Systems All systems PM: reviewed and no additional remarkable complaints except as stated All systems PM: A 10-system review of systems was performed and is negative for pertinent findings except as documented above in the HPI. General Surgery Exam Initial Vital Signs Temp Pulse Resp BP Pulse Ox 98.4 F 126 20 160/113 99 08/17/16 21:50 08/17/16 21:50 08/17/16 21:50 08/17/16 21:50 08/17/16 21:50 - General physical appearance other (mild discomfort) - Eyes PERRL, normal ocular movement - Neck no masses, trachea midline, no lymphadectomy - Respiratory normal expansion, normal respiratory effort, clear to auscultation - Cardiovascular Cardiovascular exam: Present: RRR, no murmurs/rubs/gallops - Abdomen Abdomen general surgery: Present: bowel sounds present (distended, soft, non- tympanitic) - Integumentary Integumentary general surgery: Present: warm and dry - Neurologic Present: CN 2-12 grossly intact - Musculoskeletal Present: other (no clubbing or cyanosis) - Psychiatric Psychiatric general surgery: Present: A&Ox3, appropriate, oriented to person, oriented to place, oriented to time Exam Initial Vital Signs Temp Pulse Resp BP Pulse Ox 98.4 F 126 20 160/113 99 08/17/16 21:50 08/17/16 21:50 08/17/16 21:50 08/17/16 21:50 08/17/16 21:50 Results - Labs 08/21/16 04:34 08/21/16 04:34 Abnormal lab results WBC 4.1 K/mcL (4.3-11.1) L D 08/21/16 04:34 RBC 3.40 M/mcL (3.82-4.97) L 08/21/16 04:34 Hgb 10.5 g/dL (11.5-15.4) L 08/21/16 04:34 Hct 32.0 % (35.3-44.9) L 08/21/16 04:34 VBG pCO2 38 mmHg (41-51) L 08/18/16 07:49 VBG pO2 182 mmHg (25-40) H 08/18/16 07:49 Chloride 111 mEq/L (98-109) H 08/21/16 04:34 BUN 4 mg/dL (7-20) L 08/21/16 04:34 Glucose 179 mg/dL (70-99) H 08/21/16 04:34 POC Glucose 171 (58-89) H 08/20/16 23:41 Calcium 8.1 mg/dL (8.6-10.8) L 08/21/16 04:34 Phosphorus 1.8 mg/dL (2.3-4.7) L 08/18/16 04:55 Magnesium 1.2 mg/dL (1.6-2.6) L 08/18/16 04:55 Alkaline Phosphatase 129 Units/L (38-126) H 08/17/16 23:11 Albumin 3.0 g/dL (3.5-5.0) L 08/17/16 23:11 Albumin/Globulin Ratio 0.9 (1.1-2.2) L 08/17/16 23:11 Beta-Hydroxybutyric Acd 0.41 mmol/L (0.02-0.27) H 08/17/16 23:11 Urine Clarity Cloudy (Clear) A 08/18/16 13:58 Urine Protein 30 mg/dL (Neg-Trace) H 08/18/16 13:58 Urine Glucose (UA) 250 mg/dL (Normal) H 08/18/16 13:58 Urine Blood Moderate (Negative) H 08/18/16 13:58 Ur Leukocyte Esterase Moderate (Negative) H 08/18/16 13:58 Urine Microscopic WBC 30-50 per hpf (0-3) H 08/18/16 13:58 Ur Squamous Epith Cells Many per lpf (None-Few) H 08/18/16 13:58 Urine Bacteria Many per hpf (None-Few) H 08/18/16 13:58 Ur Culture Indicated? YES (NO) A 08/18/16 13:58 Diabetes panel 08/21/16 Range/Units 04:34 Sodium 139 (136-145) mEq/L Potassium 4.3 (3.5-4.5) mEq/L Chloride 111 H (98-109) mEq/L Carbon Dioxide 23 (19-29) mEq/L BUN 4 L (7-20) mg/dL Creatinine 0.71 (0.57-1.11) mg/dL Glucose 179 H (70-99) mg/dL Calcium 8.1 L (8.6-10.8) mg/dL Calcium panel 08/21/16 Range/Units 04:34 Calcium 8.1 L (8.6-10.8) mg/dL Pituitary panel 08/21/16 Range/Units 04:34 Sodium 139 (136-145) mEq/L Potassium 4.3 (3.5-4.5) mEq/L Chloride 111 H (98-109) mEq/L Carbon Dioxide 23 (19-29) mEq/L BUN 4 L (7-20) mg/dL Creatinine 0.71 (0.57-1.11) mg/dL Glucose 179 H (70-99) mg/dL Calcium 8.1 L (8.6-10.8) mg/dL Adrenal panel 08/21/16 Range/Units 04:34 Sodium 139 (136-145) mEq/L Potassium 4.3 (3.5-4.5) mEq/L Chloride 111 H (98-109) mEq/L Carbon Dioxide 23 (19-29) mEq/L BUN 4 L (7-20) mg/dL Creatinine 0.71 (0.57-1.11) mg/dL Glucose 179 H (70-99) mg/dL Calcium 8.1 L (8.6-10.8) mg/dL All other labs normal. - Imaging CT scan - abdomen: report reviewed, image reviewed (CT shows hepatomegaly. There is evidence of abundant stool throughout the entire colon. No free air or free fluid or abscess is noted.) Consult Discharge Plan - Plan Referrals: Zehra Jamison, DAVID [Primary Care Provider] - (office is closed at this time)
[2016-08-21] MEDS: Milk and Molasses Enema 200 ML RC SCH ×2 (12:55→22:39)
--- NOTE | 2016-08-21 15:25 | Internal Med Progress Note ---
Date of Encounter: 08/21/16 Time of Encounter: 10:00 - Assessment and plan (1) DKA (diabetic ketoacidoses) Current Visit: No Status: Acute Assessment and plan: Resolved now. Continue basal and sliding scale insulin. Qualifiers: Diabetes mellitus type: type 1 Diabetes mellitus complication detail: without coma Qualified Code(s): E10.10 - Type 1 diabetes mellitus with ketoacidosis without coma (2) Abdominal pain Current Visit: No Status: Acute Assessment and plan: Surgical consult appreciated. Consider obstipation - We will give patient and marked MiraLAX and milk and molasses enema. Qualifiers: Abdominal location: left lower quadrant Qualified Code(s): R10.32 - Left lower quadrant pain (3) Diabetes mellitus type 1 Current Visit: Yes Status: Chronic Assessment and plan: Continue basal and sliding scale insulin treatment Qualifiers: Diabetes mellitus complication status: with ketoacidosis Diabetes mellitus complication detail: without coma Qualified Code(s): E10.10 - Type 1 diabetes mellitus with ketoacidosis without coma (4) DVT prophylaxis Current Visit: No Status: Acute Assessment and plan: Heparin subcutaneously (5) C. difficile diarrhea Current Visit: Yes Status: Ruled-out Assessment and plan: Patient has history of C Diff recently. Her symptoms was consider obstipation now. C Diff is not considered. will d/c vanco po. (6) Leukocytopenia Current Visit: Yes Status: Acute Assessment and plan: Improved. Qualifiers: Leukopenia type: neutropenia Neutropenia type: unspecified Qualified Code (s): D70.9 - Neutropenia, unspecified - Time Spent With Patient 25 - 35 minutes - Subjective Interval history: Patient is a 30-year-old female admitted for DKA. Her past medical history is significant for type 1 diabetes, hypertension, hyperlipidemia, liver disease, glaucoma I saw and examined the patient. She still complains of left lower quadrant abdominal pain and abdominal distention. Vital signs stable. She can pass gas and said had BM yesterday. Leukocytopenia improved. Surgical consult was called for abdominal pain. Dr. Morris saw patient and the recommendation appreciated. Will place patient on MiraLAX and milk and molasses enema. Closely monitor patient. - Constitutional Vitals: Temp Pulse Resp BP Pulse Ox 97.9 F 92 18 147/97 100 08/21/16 11:36 08/21/16 12:00 08/21/16 11:36 08/21/16 11:36 08/21/16 11:36 General appearance: Present: mild distress, A&O X 3, answers questions appropriately - Head Head exam: Present: atraumatic, normocephalic - Eye Eye exam: Present: PERRL, conjuntiva pink, sclera anicteric Pupils: Present: PERRL - Neck Neck exam general surgery: Present: supple, trachea midline. Absent: lymphadenopathy - Respiratory Respiratory exam: Present: CTAB. Absent: accessory muscle use, rales, rhonchi, wheezes - Cardiovascular Cardiovascular exam: Present: RRR, +S1, +S2. Absent: diastolic murmur, gallop, rubs, systolic murmur - GI/Abdominal GI/Abdominal exam: Present: distended, normal bowel sounds, soft, tenderness ( Lower abdominal tenderness without rebound or GUARDING), no peritoneal signs - Extremities Exam Extremities exam: Present: warm, radial pulses palpable and symetrical. Absent : calf tenderness, cyanotic, pedal edema - Neurological Exam Neurological exam: Present: CN II-XII intact, oriented X3, no focal deficits. Absent: pronater drift, facial droop, speech deficit - Skin Skin exam: Present: dry, intact Internal Medicine: Result - Labs CBC & Chem 7: 08/21/16 04:34 08/21/16 04:34 Labs: Short CBC 08/21/16 Range/Units 04:34 WBC 4.1 L D (4.3-11.1) K/mcL Hgb 10.5 L (11.5-15.4) g/dL Hct 32.0 L (35.3-44.9) % Plt Count 294 (140-400) K/mcL Neutrophils # 2.1 (1.6-8.9) K/mcL BMP 08/21/16 04:34 Sodium 139 Potassium 4.3 Chloride 111 H Carbon Dioxide 23 BUN 4 L Creatinine 0.71 Glucose 179 H Calcium 8.1 L Consult Discharge Plan - Plan Referrals: Zehra Jamison, DAVID [Primary Care Provider] - (office is closed at this time)
[2016-08-21] MEDS: Insulin DETEMIR 100 UNIT/ML X5UNITS SQ SCH (22:51)
[2016-08-22] MEDS: Milk and Molasses Enema 200 ML RC SCH (02:17)
[2016-08-22 04:17] LABS: Basophils # 0.1 K/mcL (0.0-0.2); Basophils % 0.8 %; Eosinophils # 0.2 K/mcL (0.0-0.6); Eosinophils % 3.7 %; Hematocrit 32.3 % (35.3-44.9); Hemoglobin 10.7 g/dL (11.5-15.4); Immature Granulocytes % 0.3 % (0-4); Lymphocytes # 1.6 K/mcL (0.6-4.6); Lymphocytes % 25.8 %; Mean Corpuscular HGB Conc 33.1 g/dL (31.6-35.5); Mean Corpuscular Volume 93.6 fL (83.0-100.0); Monocytes # 0.5 K/mcL (0.0-1.3); Monocytes % 7.2 %; Neutrophils # 3.9 K/mcL (1.6-8.9); Platelet Count 267 K/mcL (140-400); Red Blood Count 3.45 M/mcL (3.82-4.97); Red Cell Distribution Width 12.3 % (11.5-14.5); Segmented Neutrophils % 62.2 %
[2016-08-22 04:32] LABS: BUN/Creatinine Ratio 7 (6-26); Calcium 8.3 mg/dL (8.6-10.8); Carbon Dioxide 21 mEq/L (19-29); Chloride 106 mEq/L (98-109); Glucose 369 mg/dL (70-99); Osmolality,Calculated 292 (280-300); Potassium 5.2 mEq/L (3.5-4.5); Sodium 135 mEq/L (136-145); eGFR For African Americans > 60 (> 60); eGFR For Non-African Americans > 60 (> 60)
[2016-08-22 04:35] LABS: Blood Urea Nitrogen 5 mg/dL (7-20)
[2016-08-22] MEDS: *HR* Heparin 5,000 UNIT/ML VIAL SQ SCH ×2 (05:36→17:38)
[2016-08-22] MEDS: *HR* OxyCODONE/APAP 5/325 TABLET PO PRN ×3 (05:37→20:41)
[2016-08-22] MEDS ORDERED: Insulin DETEMIR 100 UNIT/ML X5UNITS SQ SCH (08:03)
[2016-08-22] MEDS ORDERED: Polyethylene Glycol 3350 255 GM POWDER PO ONE (08:06)
[2016-08-22] MEDS ORDERED: Milk and Molasses Enema 200 ML RC ONE (08:06)
--- NOTE | 2016-08-22 08:08 | General Surgery Progress Note ---
Date of Encounter: 08/22/16 Time of Encounter: 08:07 - Assessment and Plan (1) Obstipation Current Visit: Yes Status: Acute I think that the patient's symptoms are truly related to obstipation and her pain did improve with a bowel movement. I explained that she would need to have many more than 2 bowel movements in order to fully clear the colon of stool. Will repeat the MiraLAX and enemas today. Continue with clears. Subjective Patient reports: feels better (She states she has some soreness. BM x 2 yesterday.) Objective Vital Signs - Last 8 Hours Temp Pulse Resp BP Pulse Ox 08/22/16 04:59 98.0 F 96 16 102/66 98 08/22/16 00:11 98.5 F 108 16 132/87 98 Intake and Output 08/21/16 08/22/16 08/22/16 23:59 07:59 15:59 Intake Total 120 / 120 480 / 480 Output Total 0 / 0 500 / 500 Balance 120 / 120 -20 / -20 Intake: Oral 120 / 120 480 / 480 Output: Urine 0 / 0 200 / 200 Stool 300 / 300 Other: Stool Size Large Moderate Stool Consistency liquid liquid Stool Color Brown Yellow # Voids 1 # Bowel Movements 1 1 Blood Glucose* 305 - General physical appearance no distress - Abdomen Abdomen: Present: soft, tender (Mild tenderness to palpation. Mild to moderate distension-improved compared to yesterday.) - Labs 08/22/16 04:01 08/22/16 04:01 Diabetes panel 08/22/16 Range/Units 04:01 Sodium 135 L (136-145) mEq/L Potassium 5.2 H (3.5-4.5) mEq/L Chloride 106 (98-109) mEq/L Carbon Dioxide 21 (19-29) mEq/L BUN 5 L (7-20) mg/dL Creatinine 0.73 (0.57-1.11) mg/dL Glucose 369 H (70-99) mg/dL Calcium 8.3 L (8.6-10.8) mg/dL Calcium panel 08/22/16 Range/Units 04:01 Calcium 8.3 L (8.6-10.8) mg/dL Pituitary panel 08/22/16 Range/Units 04:01 Sodium 135 L (136-145) mEq/L Potassium 5.2 H (3.5-4.5) mEq/L Chloride 106 (98-109) mEq/L Carbon Dioxide 21 (19-29) mEq/L BUN 5 L (7-20) mg/dL Creatinine 0.73 (0.57-1.11) mg/dL Glucose 369 H (70-99) mg/dL Calcium 8.3 L (8.6-10.8) mg/dL Adrenal panel 08/22/16 Range/Units 04:01 Sodium 135 L (136-145) mEq/L Potassium 5.2 H (3.5-4.5) mEq/L Chloride 106 (98-109) mEq/L Carbon Dioxide 21 (19-29) mEq/L BUN 5 L (7-20) mg/dL Creatinine 0.73 (0.57-1.11) mg/dL Glucose 369 H (70-99) mg/dL Calcium 8.3 L (8.6-10.8) mg/dL Consult Discharge Plan - Plan Referrals: Zehra Jamison, DAVID [Primary Care Provider] - (office is closed at this time)
[2016-08-22] MEDS: Insulin LISPRO 300 UNITS/3 ML VIAL SQ SCH ×4 (08:41→20:30)
[2016-08-22] MEDS: Atropine Sulfate 1% 40 DROP/2 ML BOTTLE BOTH EYES SCH ×2 (08:49→20:29)
[2016-08-22] MEDS: PrednisoLONE Acetate 1% Opth 5 ML BOTTLE BOTH EYES SCH ×4 (08:51→20:29)
[2016-08-22] MEDS: Insulin DETEMIR 100 UNIT/ML X5UNITS SQ SCH ×2 (10:33→20:28)
--- NOTE | 2016-08-22 17:46 | Internal Med Progress Note ---
Date of Encounter: 08/22/16 Time of Encounter: 09:00 - Assessment and plan (1) DKA (diabetic ketoacidoses) Current Visit: No Status: Acute Assessment and plan: Resolved now. Continue basal and sliding scale insulin. Adjust her insulin dose to have better glucose control. Qualifiers: Diabetes mellitus type: type 1 Diabetes mellitus complication detail: without coma Qualified Code(s): E10.10 - Type 1 diabetes mellitus with ketoacidosis without coma (2) Abdominal pain Current Visit: No Status: Acute Assessment and plan: Surgical consult appreciated. Consider obstipation - We will give patient and marked MiraLAX and milk and molasses enema. - Improved after treatment, continue current treatment. Qualifiers: Abdominal location: left lower quadrant Qualified Code(s): R10.32 - Left lower quadrant pain (3) Diabetes mellitus type 1 Current Visit: Yes Status: Chronic Assessment and plan: Continue basal and sliding scale insulin treatment. Increase basal insulin to 10 units twice a day. Qualifiers: Diabetes mellitus complication status: with ketoacidosis Diabetes mellitus complication detail: without coma Qualified Code(s): E10.10 - Type 1 diabetes mellitus with ketoacidosis without coma (4) DVT prophylaxis Current Visit: No Status: Acute Assessment and plan: Heparin subcutaneously (5) C. difficile diarrhea Current Visit: Yes Status: Ruled-out Assessment and plan: Patient has history of C Diff recently. Her symptoms was consider obstipation now. C Diff is not considered. will d/c vanco po. (6) Leukocytopenia Current Visit: Yes Status: Acute Assessment and plan: Improved. Qualifiers: Leukopenia type: neutropenia Neutropenia type: unspecified Qualified Code (s): D70.9 - Neutropenia, unspecified - Time Spent With Patient 25 - 35 minutes - Subjective Interval history: Patient is a 30-year-old female admitted for DKA. Her past medical history is significant for type 1 diabetes, hypertension, hyperlipidemia, liver disease, glaucoma I saw and examined the patient. Her left lower quadrant abdominal pain and abdominal distention has improved after MiraLAX and enema. Still c/o mild lower abd pain. Vital signs stable. We will continue current treatment. Her glucose level elevated, increase the basal insulin to 10 unit twice a day. - Constitutional Vitals: Temp Pulse Resp BP Pulse Ox 97.9 F 100 18 110/73 97 08/22/16 16:20 08/22/16 16:20 08/22/16 16:20 08/22/16 16:20 08/22/16 16:20 General appearance: Present: mild distress, A&O X 3, answers questions appropriately - Head Head exam: Present: atraumatic, normocephalic - Eye Eye exam: Present: PERRL, conjuntiva pink, sclera anicteric Pupils: Present: PERRL - Neck Neck exam general surgery: Present: supple, trachea midline. Absent: lymphadenopathy - Respiratory Respiratory exam: Present: CTAB. Absent: accessory muscle use, rales, rhonchi, wheezes - Cardiovascular Cardiovascular exam: Present: RRR, +S1, +S2. Absent: diastolic murmur, gallop, rubs, systolic murmur - GI/Abdominal GI/Abdominal exam: Present: normal bowel sounds, soft, tenderness (Mild tenderness on lower abdominal, no bounding or guarding), no peritoneal signs. Absent: distended - Extremities Exam Extremities exam: Present: warm, radial pulses palpable and symetrical. Absent : calf tenderness, cyanotic, pedal edema - Neurological Exam Neurological exam: Present: CN II-XII intact, oriented X3, no focal deficits. Absent: pronater drift, facial droop, speech deficit - Skin Skin exam: Present: dry, intact Internal Medicine: Result - Labs CBC & Chem 7: 08/22/16 04:01 08/22/16 04:01 Labs: Short CBC 08/22/16 Range/Units 04:01 WBC 6.3 D (4.3-11.1) K/mcL Hgb 10.7 L (11.5-15.4) g/dL Hct 32.3 L (35.3-44.9) % Plt Count 267 (140-400) K/mcL Neutrophils # 3.9 (1.6-8.9) K/mcL BMP 08/22/16 04:01 Sodium 135 L Potassium 5.2 H Chloride 106 Carbon Dioxide 21 BUN 5 L Creatinine 0.73 Glucose 369 H Calcium 8.3 L Consult Discharge Plan - Plan Referrals: Zehra Jamison, DAVID [Primary Care Provider] - (office is closed at this time)
[2016-08-23] MEDS: *HR* OxyCODONE/APAP 5/325 TABLET PO PRN ×4 (04:16→22:32)
[2016-08-23] MEDS: *HR* Heparin 5,000 UNIT/ML VIAL SQ SCH ×2 (05:49→18:05)
[2016-08-23 06:15] LABS: Basophils # 0.1 K/mcL (0.0-0.2); Basophils % 0.9 %; Eosinophils # 0.3 K/mcL (0.0-0.6); Eosinophils % 4.5 %; Hematocrit 30.9 % (35.3-44.9); Hemoglobin 10.1 g/dL (11.5-15.4); Immature Granulocytes % 0.5 % (0-4); Lymphocytes # 2.9 K/mcL (0.6-4.6); Lymphocytes % 45.6 %; Mean Corpuscular HGB Conc 32.7 g/dL (31.6-35.5); Mean Corpuscular Hemoglobin 30.3 pg (28.0-33.3); Mean Corpuscular Volume 92.8 fL (83.0-100.0); Mean Platelet Volume 9.7 fL (9.4-12.4); Monocytes # 0.5 K/mcL (0.0-1.3); Monocytes % 7.5 %; Neutrophils # 2.6 K/mcL (1.6-8.9); Platelet Count 322 K/mcL (140-400); Red Blood Count 3.33 M/mcL (3.82-4.97); Red Cell Distribution Width 11.9 % (11.5-14.5)
[2016-08-23 06:29] LABS: BUN/Creatinine Ratio 12 (6-26); Blood Urea Nitrogen 8 mg/dL (7-20); Calcium 8.6 mg/dL (8.6-10.8); Carbon Dioxide 26 mEq/L (19-29); Chloride 108 mEq/L (98-109); Glucose 117 mg/dL (70-99); Osmolality,Calculated 291 (280-300); Sodium 141 mEq/L (136-145); eGFR For African Americans > 60 (> 60); eGFR For Non-African Americans > 60 (> 60)
[2016-08-23 06:40] LABS: Potassium 3.7 mEq/L (3.5-4.5)
[2016-08-23] MEDS: Insulin LISPRO 300 UNITS/3 ML VIAL SQ SCH ×4 (08:11→21:42)
[2016-08-23] MEDS: Insulin DETEMIR 100 UNIT/ML X5UNITS SQ SCH (08:54)
[2016-08-23] MEDS: Atropine Sulfate 1% 40 DROP/2 ML BOTTLE BOTH EYES SCH (08:54)
[2016-08-23] MEDS: PrednisoLONE Acetate 1% Opth 5 ML BOTTLE BOTH EYES SCH ×2 (08:54→13:49)
[2016-08-23] MEDS: Ondansetron 4 MG/2 ML VIAL IVP PRN (10:10)
--- NOTE | 2016-08-23 11:02 | General Surgery Progress Note ---
Date of Encounter: 08/23/16 Time of Encounter: 10:45 - Assessment and Plan (1) Obstipation Current Visit: Yes Status: Acute Patient had multiple bowel movements with Miralax and gatorade She continues to complain of LLQ pain with bloating and nausea, no appetite ( despite bowel movements) Continue diet as tolerated Supportive care/pain control (2) Urinary retention with incomplete bladder emptying Current Visit: Yes Status: Acute bladder scan now check UA and culture Discussed with hospitalist team Subjective Patient reports: still having pain (LLQ), flatus, bowel movement (multiple ( approximately 20 bowel movements per patient yesterday)), nausea, afebrile, other (Patient reports no appetite and refused breakfast this morning. States that she is having difficulty with urination and does not feel like she is emptying her bladder.) Objective Vital Signs - Last 8 Hours Temp Pulse Resp BP Pulse Ox 08/23/16 07:24 97.7 F 88 18 127/81 97 08/23/16 04:11 98.2 F 90 14 143/86 100 Intake and Output 08/22/16 08/23/16 08/23/16 23:59 07:59 15:59 Intake Total 0 / 0 0 / 0 Output Total 0 / 0 0 / 0 Balance 0 / 0 0 / 0 Intake: Oral 0 / 0 0 / 0 Output: Urine 0 / 0 0 / 0 Other: Meal REFUSED # Voids 2 1 Weight 58.4 kg Blood Glucose* 250 86 Patient Weight 08/23/16 23:59 Weight 58.4 kg - General physical appearance well developed, well nourished, no distress, moderate pain - Eyes normal ocular movement - ENT normal mucosa, atraumatic, normocephalic - Neck Neck exam: trachea midline - Respiratory normal respiratory effort, clear to auscultation - Cardiovascular Cardiovascular exam: Present: RRR - Abdomen Abdomen: Present: bowel sounds present (hypoactive), distended, tender Abdominal Tenderness: LLQ - Neurologic CN 2-12 grossly intact - Psychiatric oriented to time, oriented to person, oriented to place, speech is normal, memory intact - Labs 08/23/16 05:33 08/23/16 05:33 Diabetes panel 08/23/16 Range/Units 05:33 Sodium 141 (136-145) mEq/L Potassium 3.7 D (3.5-4.5) mEq/L Chloride 108 (98-109) mEq/L Carbon Dioxide 26 (19-29) mEq/L BUN 8 (7-20) mg/dL Creatinine 0.69 (0.57-1.11) mg/dL Glucose 117 H (70-99) mg/dL Calcium 8.6 (8.6-10.8) mg/dL Calcium panel 08/23/16 Range/Units 05:33 Calcium 8.6 (8.6-10.8) mg/dL Pituitary panel 08/23/16 Range/Units 05:33 Sodium 141 (136-145) mEq/L Potassium 3.7 D (3.5-4.5) mEq/L Chloride 108 (98-109) mEq/L Carbon Dioxide 26 (19-29) mEq/L BUN 8 (7-20) mg/dL Creatinine 0.69 (0.57-1.11) mg/dL Glucose 117 H (70-99) mg/dL Calcium 8.6 (8.6-10.8) mg/dL Adrenal panel 08/23/16 Range/Units 05:33 Sodium 141 (136-145) mEq/L Potassium 3.7 D (3.5-4.5) mEq/L Chloride 108 (98-109) mEq/L Carbon Dioxide 26 (19-29) mEq/L BUN 8 (7-20) mg/dL Creatinine 0.69 (0.57-1.11) mg/dL Glucose 117 H (70-99) mg/dL Calcium 8.6 (8.6-10.8) mg/dL Consult Discharge Plan - Plan Referrals: Zehra Jamison, THERMITE WELDER [Primary Care Provider] - (office is closed at this time) - Attending Attestation I examined this patient and my medical decision-making was reviewed with the GAS METER READER/PA/Advanced Practice Nurse/Resident Physician. I agree with the documented findings, disposition and treatment plan as described except to the extent set forth below.
[2016-08-23] MEDS ORDERED: Polyethylene Glycol 3350 255 GM POWDER PO ONE (11:39)
--- NOTE | 2016-08-23 14:18 | Internal Med Progress Note ---
<Terry Alonso - Last Filed: 08/23/16 14:27> Date of Encounter: 08/23/16 Time of Encounter: 10:20 - Assessment and plan (1) Abdominal pain Current Visit: Yes Status: Acute Assessment and plan: Etiology unclear at this time. Possibly from the obstipation However this is resolving and she has had multiple bowel movements since yesterday. She is complaining of pain. this seems out of proportion to her exam. Complaining of 10/10. I think possibly some of her symptoms may be exagerated but this would be a diagnosis of exclusion. DKA has resolved. She dose not have hypercalcemia. I do not see any obvious metabolic causes. CT of the abdomen dose not reveal a cause for this pain. We will check a lactic acid to look for ischemia. we discussed case with Surgery and will plan for colonoscopy in the AM. (2) Obstipation Current Visit: Yes Status: Acute Assessment and plan: resolved (3) Diabetes Current Visit: Yes Status: Acute Assessment and plan: continue medium dose sliding scale. Continue levemir. Half dose of levemr tonight as she will be NPO. (4) DKA (diabetic ketoacidoses) Current Visit: Yes Status: Acute Assessment and plan: resolved (5) Leukopenia Current Visit: Yes Status: Acute Assessment and plan: mild trending up (6) DVT prophylaxis Current Visit: Yes Status: Acute Assessment and plan: SQ heparin (7) Anemia Current Visit: Yes Status: Acute Assessment and plan: check hematinics. - Subjective Interval history: No major events overnight. patient states that she has continued abdominal pain. She states it is in the left lower quadrant, and non radiating. She states that it is severe, 10/10 pain. she did attempt to vomit this morning but only had dry heaves. she has no further - Constitutional Vitals: Temp Pulse Resp BP Pulse Ox 98.5 F 96 20 154/96 98 08/23/16 11:55 08/23/16 11:55 08/23/16 11:55 08/23/16 11:55 08/23/16 11:55 General appearance: Present: mild distress, A&O X 3, answers questions appropriately - Head Head exam: Present: atraumatic, normocephalic - Eye Eye exam: Present: PERRL, conjuntiva pink, sclera anicteric Pupils: Present: PERRL - Neck Neck exam general surgery: Present: supple, trachea midline. Absent: lymphadenopathy - Respiratory Respiratory exam: Present: CTAB. Absent: accessory muscle use, rales, rhonchi, wheezes - Cardiovascular Cardiovascular exam: Present: RRR, +S1, +S2. Absent: diastolic murmur, gallop, rubs, systolic murmur - GI/Abdominal GI/Abdominal exam: Present: normal bowel sounds, soft, tenderness (Left lower quadrant. ), no peritoneal signs. Absent: distended - Extremities Exam Extremities exam: Present: warm, radial pulses palpable and symetrical. Absent : calf tenderness, cyanotic, pedal edema - Neurological Exam Neurological exam: Present: CN II-XII intact, oriented X3, no focal deficits. Absent: pronater drift, facial droop, speech deficit - Skin Skin exam: Present: dry, intact Internal Medicine: Result - Labs CBC & Chem 7: 08/23/16 05:33 08/23/16 05:33 Labs: Short CBC 08/23/16 Range/Units 05:33 WBC 6.4 (4.3-11.1) K/mcL Hgb 10.1 L (11.5-15.4) g/dL Hct 30.9 L (35.3-44.9) % Plt Count 322 (140-400) K/mcL Neutrophils # 2.6 (1.6-8.9) K/mcL BMP 08/23/16 05:33 Sodium 141 Potassium 3.7 D Chloride 108 Carbon Dioxide 26 BUN 8 Creatinine 0.69 Glucose 117 H Calcium 8.6 Consult Discharge Plan - Plan Referrals: Zehra Jamison, DAVID [Primary Care Provider] - 08/30/16 10:00 am (office is closed at this time) <Victor M Abreu - Last Filed: 08/23/16 17:32> Date of Encounter: 08/23/16 - Constitutional Vitals: Temp Pulse Resp BP Pulse Ox 98.1 F 89 18 143/87 99 08/23/16 15:56 08/23/16 15:56 08/23/16 15:56 08/23/16 15:56 08/23/16 15:56 Internal Medicine: Result - Labs CBC & Chem 7: 08/23/16 05:33 08/23/16 05:33 Labs: Short CBC 08/23/16 Range/Units 05:33 WBC 6.4 (4.3-11.1) K/mcL Hgb 10.1 L (11.5-15.4) g/dL Hct 30.9 L (35.3-44.9) % Plt Count 322 (140-400) K/mcL Neutrophils # 2.6 (1.6-8.9) K/mcL BMP 08/23/16 05:33 Sodium 141 Potassium 3.7 D Chloride 108 Carbon Dioxide 26 BUN 8 Creatinine 0.69 Glucose 117 H Calcium 8.6 Urine 08/23/16 Range/Units 15:54 Urine Color Yellow (Yellow) Urine Clarity Clear (Clear) Urine pH 6.5 (5.0-8.0) pH Units Ur Specific [place] 1.009 L (1.010-1.025) Urine Protein Negative (Neg-Trace) mg/dL Urine Glucose (UA) Normal (Normal) mg/dL - Attending Attestation I examined this patient and my medical decision-making was reviewed with the Resident Physician, Dr. Alonso. I agree with the documented findings, disposition and treatment plan as described except to the extent set forth below. Patient is in no acute distress awake alert oriented. Heart is regular S1-S2 no murmurs rubs or gallops. Lungs are clear. Abdomen soft tenderness to palpation of the left lower quadrant with no peritoneal signs. Plan: DKA has resolved. She has had a CT abdomen and pelvis which showed no evidence of from pathology that could explain her abdominal pain. She does report 9/10 persistent left lower quadrant abdominal pain and therefore I will consult surgery for colonoscopy as part of her further workup for intractable abdominal pain with no obvious cause.
[2016-08-23] MEDS ORDERED: Ketorolac 15 MG/ML VIAL IVP ONE (14:21)
[2016-08-23 16:15] LABS: Bilirubin,Urine Negative (Negative); Blood,Urine Negative (Negative); Clarity,Urine Clear (Clear); Color,Urine Yellow (Yellow); Glucose,Urine (UA) Normal (Normal); Ketones,Urine Negative (Negative); Leukocyte Esterase,Urine Negative (Negative); Nitrite,Urine Negative (Negative); PH,Urine 6.5 pH Units (5.0-8.0); Protein,Urine Negative (Neg-Trace); Specific Gravity,Urine 1.009 (1.010-1.025); Urobilinogen,Urine Normal (Normal)
[2016-08-23] MEDS: PrednisoLONE Acetate 1% Opth 5 ML BOTTLE LEFT EYE SCH ×2 (18:06→22:00)
--- NOTE | 2016-08-23 19:06 | Event Note ---
<Terry Alonso - Last Filed: 08/23/16 19:06> Date of Encounter: 08/23/16 Time of Encounter: 18:15 I was paged by staffing rn regarding patient complaining of left sided numbness. Patient states that she had numbness that began in her foot 3 days ago. She states that it has progressed and now her entire left side is numb. She states she dose not know if she has weakness. Seh states that her left hand feels weak but it is painful and swollen from the IV. She denies any slurred speech. 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 Vital signs are within normal limtis. I could find no cranial nerve dysfunction. However this exam is limited as she states she is completely blind. I di note that she dose where her eye glasses and seems to track people in the room. Mentation is normal. She can remember 3 objects after several minutes. Denies any sensation whatsoever on the left. Normal muscle strength bilaterally. Normal Biceps, triceps, brachoradialis, patellar, and acheles reflexes. No clonus No rigidity No babinski No dysdiadokinesis as tested by rapid alternating movements. I was unable to ceck visual sterling or observe her ambulate. No point tenderness of the cervicle spine. Negative Sp[place]ings Etiology of these symptoms are unclear at this time. would not be a candidate for TPA given these symptoms began 3 days ago. I would consider possibly a capsular stroke. I doubt highly that this is a cortical stroke. Neuropathy. I did consider an abnormal presentation of Gullain barre. However no motor dysfunction. No recent vaccinations. Would also consider strongly a psychiatric component to her symptoms. We will obtain a CT tonight. IT is the end of the shift. I will sign this out to the third shift lieutenant ( Dr. Armstrong PGY1) to follow up with the results. If normal results and symptoms persist may consider MRI with possible Neuro consultation. we will also check B12 and folate <Victor M Abreu - Last Filed: 08/24/16 07:34> Date of Encounter: 08/24/16 I examined this patient and my medical decision-making was reviewed with the Resident Physician, Dr. Alonso. I agree with the documented findings, disposition and treatment plan as described except to the extent set forth below. We will follow up the CT of the head and direct management accordingly.
--- NOTE | 2016-08-23 19:13 | Event Note ---
Date of Encounter: 08/23/16 Time of Encounter: 18:56 Patient reported to the nurse that she cannot feel on her left side. I evaluated the patient at the bedside and she tells me that 3 days ago she started having numbness of her left foot which progressed to involve the entire left lower extremity and left side of her body including her left arm. She also noted that her strength was decreased in the left arm. Today when she was evaluated by therapy she reported these symptoms and was prompted to address them with the physician. On exam she is in no acute distress. Pupils are equal and round and nonreactive to light. Extraocular movements intact. Tongue protrudes in the midline. There is no facial droop or asymmetry. She does report loss of pinprick sensation on the left side of her face. Muscle strength is equal in both upper and lower extremities. There is no pronator drift. Patellar reflexes are diminished equally in both lower extremity and brisk and equal at the bicipital, tricipital sites. Assessment and plan: L hemianesthesia: could be related to Ac CVA. Given the timing of symptoms onset 3 days ago and the atypical presentation without any other associated focal neurological deficits she is not a TPA candidate. Will obtain stat head CT. Neurological checks every 4 hours. Alternatively this could be related to Guillain-[place] syndrome, however unlikely to be unilateral. Differential also includes demyelinating disease. We will consult neurology in the morning. Consider obtaining MRI of the brain.
--- NOTE | 2016-08-23 20:39 | Anesthesia Evaluation PreOp ---
Date of Encounter: 08/23/16 Time of Encounter: 20:36 - Past History Planned Operation: colonoscopy Cardiac History: Hyperlipidemia Other Medical History: Hepatic (Cirrhosis seconfdary to DURAN), Diabetes Type I, GERD, Other (Glaucoma) Anesthesia History: No Prior Anesthetic Complications, Past Anesthesia (Appy) : Yes (ordered) Alcohol Use: none Drug use: none Medications and Allergies Ergocalciferol (VITAMIN D2) [Vitamin D2 (50,000 UNIT)] 50,000 unit PO WE [History] LORazepam [Ativan] 1 mg PO BID 02/02/16 [History] PrednisoLONE Acetate 1% Opth [PredFORTE 1%] 1 drop OP QID 02/02/16 [History] Timolol Maleate 0.5% 1 drop OP BID 02/02/16 [History] Atropine 1% Opth Drops 1 drop OP BID 02/15/16 [History] Oxycodone HCl/Acetaminophen [Percocet 5-325 mg Tablet] 1 tab PO Q6H PRN [History] Insulin ASPART [Novolog Flexpen] 0 unit SQ TIDWM 08/02/16 [History] Insulin Glargine,Hum.rec.anlog [Lantus Solostar] 20 unit SQ HS 08/02/16 [History ] Metoclopramide [Reglan] 10 mg PO Q6HR PRN #15 mls 08/05/16 [Rx] MetroNIDAZOLE [Flagyl] 500 mg PO TID 13 Days 08/05/16 [Rx] Vancomycin Oral Soln [Vancocin] 125 mg PO QID #65 ml 08/05/16 [Rx] Fluconazole [Diflucan] 150 mg PO ONCE PRN 08/18/16 [History] Allergies hydrocodone Allergy (Verified 08/17/16 21:53) Hives - Meds/Allergy Pre-op Review Medications Reviewed: Yes Allergies Reviewed: Yes Beta Blockers on Current Med List: No Anesthesia Results - Labs 08/23/16 05:33 08/23/16 05:33 Anesthesia Exam O2 Sat Weight 58.4 kg O2 Sat by Pulse Oximetry 97 O2 Sat by Pulse Oximetry 99 O2 Sat by Pulse Oximetry 98 O2 Sat by Pulse Oximetry 97 O2 Sat by Pulse Oximetry 100 O2 Sat by Pulse Oximetry 98 Vital Signs Temp Pulse Resp BP Pulse Ox 98.4 F 126 20 160/113 99 08/17/16 21:50 08/17/16 21:50 08/17/16 21:50 08/17/16 21:50 08/17/16 21:50 Vital Signs/O2 Sat, Most Current Temp Pulse Resp BP Pulse Ox 97.4 F L 85 16 165/94 97 08/23/16 20:24 08/23/16 20:24 08/23/16 20:24 08/23/16 20:24 08/23/16 20:24 Height: 5'3'' Weight: 128# NPO (# of Hours): > 8 hrs Pain Scale: 0 - HEENT Pupil (Motor): Pupils equal, EOMI Mallampati: II Teeth: Poor dentition Oral Opening: Greater than 3 - ENVIRONMENTAL TEST TECHNICIAN LOC: Oriented ENVIRONMENTAL TEST TECHNICIAN Motor: Normal RUE, Normal LUE, Normal RLE, Normal LLE, Normal Face ENVIRONMENTAL TEST TECHNICIAN Sensory: Normal: RUE, LUE, RLE, LLE, Face - Cardiac Rhythm: Regular Murmur: None JVD: No Carotid Bruit: No - Pulmonary Breath Sounds: bilateral Clear Respiratory Effort: Symmetrical Anesthesia Assess/Plan ASA Score: 2 Modified [place] Scale for Level of Consciousness: Cooperative, oriented, and tranquil Anesthetic Plan: MAC Autologous Blood: Yes Monitoring Plan: Standard Monitors Recovery Plan: PACU
[2016-08-23] MEDS ORDERED: Aspirin 325 MG TABLET PO ONE (20:51)
[2016-08-23] MEDS ORDERED: Insulin DETEMIR 100 UNIT/ML X5UNITS SQ SCH (21:00)
[2016-08-23] MEDS: Atropine Sulfate 1% 40 DROP/2 ML BOTTLE RIGHT EYE SCH (21:59)
[2016-08-24] MEDS: Ondansetron 4 MG/2 ML VIAL IVP PRN (00:11)
[2016-08-24] MEDS: *HR* OxyCODONE/APAP 5/325 TABLET PO PRN ×2 (04:55→18:08)
[2016-08-24] MEDS: *HR* Heparin 5,000 UNIT/ML VIAL SQ SCH ×2 (04:57→17:52)
[2016-08-24 05:39] LABS: Basophils % 0.3 %; Eosinophils # 0.2 K/mcL (0.0-0.6); Eosinophils % 2.5 %; Hematocrit 32.5 % (35.3-44.9); Hemoglobin 10.3 g/dL (11.5-15.4); Immature Granulocytes % 0.3 % (0-4); Immature Reticulocyte % 11.4 % (11.0-38.0); Lymphocytes # 1.4 K/mcL (0.6-4.6); Lymphocytes % 20.2 %; Mean Corpuscular HGB Conc 31.7 g/dL (31.6-35.5); Mean Corpuscular Hemoglobin 29.6 pg (28.0-33.3); Mean Corpuscular Volume 93.4 fL (83.0-100.0); Mean Platelet Volume 9.8 fL (9.4-12.4); Monocytes # 0.7 K/mcL (0.0-1.3); Monocytes % 9.1 %; Neutrophils # 4.8 K/mcL (1.6-8.9); Platelet Count 290 K/mcL (140-400); Red Blood Count 3.48 M/mcL (3.82-4.97); Red Cell Distribution Width 11.7 % (11.5-14.5); Reticulocyte % 2.8 % (1.6-2.8); Segmented Neutrophils % 67.6 %
[2016-08-24 06:02] LABS: % Iron Saturation 9 % (15-50); BUN/Creatinine Ratio 8 (6-26); Calcium 8.1 mg/dL (8.6-10.8); Carbon Dioxide 32 mEq/L (19-29); Chloride 107 mEq/L (98-109); Glucose 76 mg/dL (70-99); Iron 25 mcg/dL (50-170); Magnesium 1.5 mg/dL (1.6-2.6); Osmolality,Calculated 292 (280-300); Potassium 3.7 mEq/L (3.5-4.5); Sodium 143 mEq/L (136-145); Transferrin 195 mg/dL (180-382); eGFR For African Americans > 60 (> 60); eGFR For Non-African Americans > 60 (> 60)
[2016-08-24 06:06] LABS: Blood Urea Nitrogen 5 mg/dL (7-20)
[2016-08-24 06:09] LABS: Ferritin 28 ng/ml (5-204)
[2016-08-24] MEDS ORDERED: Magnesium Sulfate 2 GM in D5% in Water 100 ML IVPB ONE (08:24)
[2016-08-24] MEDS: Insulin LISPRO 300 UNITS/3 ML VIAL SQ SCH ×3 (09:24→17:51)
[2016-08-24] MEDS: Atropine Sulfate 1% 40 DROP/2 ML BOTTLE RIGHT EYE SCH ×2 (09:30→21:41)
[2016-08-24] MEDS: PrednisoLONE Acetate 1% Opth 5 ML BOTTLE LEFT EYE SCH (09:30)
[2016-08-24] MEDS ORDERED: *HR* Morphine 2 MG/ML SYRINGE IVP ONE (11:06)
[2016-08-24] MEDS ORDERED: Insulin LISPRO 300 UNITS/3 ML VIAL SQ SCH (11:18)
[2016-08-24] MEDS ORDERED: *HR* Propofol 200 MG/20 ML VIAL IVP ONE (12:18)
--- NOTE | 2016-08-24 16:05 | Internal Med Progress Note ---
<Terry Alonso - Last Filed: 08/24/16 16:03> Date of Encounter: 08/24/16 Time of Encounter: 10:05 - Assessment and plan (1) Abdominal pain Current Visit: Yes Status: Acute Assessment and plan: Etiology unclear at this time. Possibly from the obstipation However this is resolving and she has had multiple bowel movements since yesterday. She is complaining of pain. this seems out of proportion to her exam. Complaining of 10/10. I think possibly some of her symptoms may be exaggerated but this would be a diagnosis of exclusion. DKA has resolved. She dose not have hypercalcemia. I do not see any obvious metabolic causes. CT of the abdomen dose not reveal a cause for this pain. Lactic acid mildly elevated at 2.8. Surgery following and she will have a colonoscopy today (2) Numbness Current Visit: Yes Status: Acute Assessment and plan: Patient continues to complain of left sided numbness. No london ein symptoms or exam findings today. CT shows no acute intracranial abnormalities. She dose have some calcifications in the basal ganglia. She continues to complain of numbness. We will order an MRI and ask Neurology for their opinion. (3) Obstipation Current Visit: Yes Status: Acute Assessment and plan: resolved (4) Diabetes Current Visit: Yes Status: Acute Assessment and plan: continue medium dose sliding scale. Continue levemir. resume normal dose of levemir after colonoscopy and resuming a diet. (5) DKA (diabetic ketoacidoses) Current Visit: Yes Status: Acute Assessment and plan: patient admitted woth elevated AG, Ketones, and hyperglycemia. resolved (6) Leukopenia Current Visit: Yes Status: Acute Assessment and plan: resolved (7) DVT prophylaxis Current Visit: Yes Status: Acute Assessment and plan: SQ heparin (8) Anemia Current Visit: Yes Status: Acute Assessment and plan: iron deficient. she will have colonoscopy today. - Subjective Interval history: No major events overnight. patient states that she has continued abdominal pain. She states it is in the left lower quadrant, and non radiating. She states that it is severe, 10/10 pain.Nausea is well controlled. No vomitting. She continues to have left sided numbness. No weakness, slurred speech. she has no further complaints or concerns at this time. - Constitutional Vitals: Temp Pulse Resp BP Pulse Ox 97.7 F 150 18 124/88 99 08/24/16 15:26 08/24/16 15:45 08/24/16 15:45 08/24/16 15:45 08/24/16 15:45 General appearance: Present: mild distress, A&O X 3, answers questions appropriately - Head Head exam: Present: atraumatic, normocephalic - ENT ENT exam: Present: mucous membranes moist - Neck Neck exam general surgery: Present: supple, trachea midline. Absent: lymphadenopathy - Respiratory Respiratory exam: Present: CTAB. Absent: accessory muscle use, rales, rhonchi, wheezes - Cardiovascular Cardiovascular exam: Present: RRR, +S1, +S2. Absent: diastolic murmur, gallop, rubs, systolic murmur - GI/Abdominal GI/Abdominal exam: Present: normal bowel sounds, soft, tenderness (left lower quadrant. No guarding. ), no peritoneal signs. Absent: distended - Extremities Exam Extremities exam: Present: warm, radial pulses palpable and symetrical. Absent : calf tenderness, cyanotic, pedal edema - Neurological Exam Neurological exam: Present: CN II-XII intact (could not asses EOMI. ), oriented X3. Absent: pronater drift, facial droop, speech deficit Additional comments: admits to numbness on the entire left side. - Skin Skin exam: Present: dry, intact Internal Medicine: Result - Labs CBC & Chem 7: 08/24/16 04:34 08/24/16 04:34 Labs: Short CBC 08/24/16 Range/Units 04:34 WBC 7.1 (4.3-11.1) K/mcL Hgb 10.3 L (11.5-15.4) g/dL Hct 32.5 L (35.3-44.9) % Plt Count 290 (140-400) K/mcL Neutrophils # 4.8 (1.6-8.9) K/mcL BMP 08/24/16 04:34 Sodium 143 Potassium 3.7 Chloride 107 Carbon Dioxide 32 H BUN 5 L Creatinine 0.66 Glucose 76 Calcium 8.1 L Urine 08/23/16 Range/Units 15:54 Urine Color Yellow (Yellow) Urine Clarity Clear (Clear) Urine pH 6.5 (5.0-8.0) pH Units Ur Specific [place] 1.009 L (1.010-1.025) Urine Protein Negative (Neg-Trace) mg/dL Urine Glucose (UA) Normal (Normal) mg/dL - Impressions Impressions Head CT 08/23/16 17:27 IMPRESSION: No acute intracranial abnormality. Examination is similar to prior. D/ / Bi Perrin MD / Bi Perrin MD Interpreting Provider: Bi Perrin MD Brain MRI 08/24/16 09:42 IMPRESSION: No acute intracranial abnormality. Abnormal signal in the vitreous of the left globe, may be related to silicon gel versus hemorrhage. Abnormal signal in the right globe, may be related to retinal detachment. D/ / Billy Forbes MD / Billy Forbes MD Interpreting Provider: Billy Forbes MD Consult Discharge Plan - Plan Referrals: Zehra Jamison CNP [Primary Care Provider] - 08/30/16 10:00 am (office is closed at this time) <Victor M bAreu - Last Filed: 08/24/16 19:18> Date of Encounter: 08/24/16 - Constitutional Vitals: Temp Pulse Resp BP Pulse Ox 97.7 F 150 18 124/88 99 08/24/16 15:26 08/24/16 15:45 08/24/16 15:45 08/24/16 15:45 08/24/16 15:45 Internal Medicine: Result - Labs CBC & Chem 7: 08/24/16 04:34 08/24/16 04:34 Labs: Short CBC 08/24/16 Range/Units 04:34 WBC 7.1 (4.3-11.1) K/mcL Hgb 10.3 L (11.5-15.4) g/dL Hct 32.5 L (35.3-44.9) % Plt Count 290 (140-400) K/mcL Neutrophils # 4.8 (1.6-8.9) K/mcL BMP 08/24/16 04:34 Sodium 143 Potassium 3.7 Chloride 107 Carbon Dioxide 32 H BUN 5 L Creatinine 0.66 Glucose 76 Calcium 8.1 L - Impressions Impressions Head CT 08/23/16 17:27 IMPRESSION: No acute intracranial abnormality. Examination is similar to prior. D/ / Bi Perrin MD / Bi Perrin MD Interpreting Provider: Bi Perrin MD Brain MRI 08/24/16 09:42 IMPRESSION: No acute intracranial abnormality. Abnormal signal in the vitreous of the left globe, may be related to silicon gel versus hemorrhage. Abnormal signal in the right globe, may be related to retinal detachment. D/ / Billy Forbes MD / Billy Forbes MD Interpreting Provider: Billy Forbes MD - Attending Attestation I examined this patient and my medical decision-making was reviewed with the Resident Physician, Dr Alonso. I agree with the documented findings, disposition and treatment plan as described except to the extent set forth below. Her physical exam is unchanged from yesterday. Heart is regular S1-S2 no murmurs rubs or gallops lungs are clear. She subjectively reports numbness to the left side of her body. There is no facial asymmetry. Extraocular movements are intact. Plan: She will have colonoscopy today. She will be evaluated by neurology. MRI of the brain to further detail her CT finding of calcification of basal ganglia.
--- NOTE | 2016-08-24 16:16 | Event Note ---
Date of Encounter: 08/24/16 Time of Encounter: 16:16 Colonoscopy completed. Noted semi-liquid stool throughout colon. No masses, no polyps, no other abnormalites. OK to advance diet as needed.
--- NOTE | 2016-08-24 17:05 | Neurology - Consult Note ---
Date of Encounter: 08/24/16 Time of Encounter: 16:55 Assessment and Plan (1) Hemiparesis Current Visit: Yes Status: Acute Hemiparesis and hemiparesthesia on the left side, can not be explained by DIGITAL STRATEGY MANAGER pathology, since the MRI of brain without contrast showed no acute lesions that can explain her clinical presentation. Clinically, there is no cranial nerve involvement, namely, no facial asymmetry, no tongue deviation, no eye movement abnormality and no swallowing and speech difficulty. This is likely psychogenic in origin. Will at this not recommending any further testing from neurological perspective but she certainly can benefit from PT/OT Please continue medical and supportive care. History of Present Illness Chief complaint: left sided weakenss and paresthesia HPI: Ms. Sierra is a 30 year old female with PMH significant for DM, CKD, DURAN, history of blindness who was initially admitted to [facility] few days ago due to diffuse weakness and malaise. she was treated medically aggressively and she apparently has been improving but started telling medical staff that she is also weak on the left side and that she could not feel her left face, left arm and left leg at all. She is legally blind and could not see. Neurology was consulted regarding possible stroke. MRI of brain was completed at the time of this interview. No acute infarct or other acute pathology identified. CT of head showed bilateral calcification at the BG which is a chronic condition. Past Med Surg Social Fam HX - Past Medical History Medical history: arthritis, cirrhosis, diabetes, GERD, glaucoma, hyperlipidemia , hypertension, liver disease, osteoporosis, other Psychiatric history: anxiety - Past Surgical History Surgical History: , cholecystectomy, sinus surgery, other - Social History Smoking Status: Never smoker Smokeless Tobacco Status: No Alcohol use: none Drug use: none - Family History Grandmother Family Member Ethnicity: Non- Living Status: Still Living Hx Family Cardiac Disorders: No Hx Family Respiratory Disorders: No Hx Family Cancer: No Hx Family GI Disorders: No Hx Family Endocrine Disorder: Yes (type 2 diabetes) Hx Family Neuromuscular Disorders: No Hx Family Neurologic Disorders: Yes (stroke) Hx Family HEENT Disorders: No Hx Family Autoimmune Disorders: No Hx Family Medical Disorders: Yes (grandmother had stroke) Medications and Allergies Ergocalciferol (VITAMIN D2) [Vitamin D2 (50,000 UNIT)] 50,000 unit PO WE [History] LORazepam [Ativan] 1 mg PO BID 02/02/16 [History] PrednisoLONE Acetate 1% Opth [PredFORTE 1%] 1 drop OP BID 02/02/16 [History] Timolol Maleate 0.5% 1 drop OP BID 02/02/16 [History] Atropine 1% Opth Drops 1 drop RIGHT EYE BID 02/15/16 [History] Oxycodone HCl/Acetaminophen [Percocet 5-325 mg Tablet] 1 tab PO Q6H PRN [History] Insulin ASPART [Novolog Flexpen] 0 unit SQ TIDWM 08/02/16 [History] Insulin Glargine,Hum.rec.anlog [Lantus Solostar] 20 unit SQ HS 08/02/16 [History ] Metoclopramide [Reglan] 10 mg PO Q6HR PRN #15 mls 08/05/16 [Rx] MetroNIDAZOLE [Flagyl] 500 mg PO TID 13 Days 08/05/16 [Rx] Vancomycin Oral Soln [Vancocin] 125 mg PO QID #65 ml 08/05/16 [Rx] Fluconazole [Diflucan] 150 mg PO ONCE PRN 08/18/16 [History] Allergies hydrocodone Allergy (Verified 08/17/16 21:53) Hives All Systems: A 10-system review of systems was performed and is negative for pertinent findings except as documented above in the HPI. Physical Examination - Vital Signs Vital Signs: Initial Vital Signs Temp Pulse Resp BP Pulse Ox 98.4 F 126 20 160/113 99 08/17/16 21:50 08/17/16 21:50 08/17/16 21:50 08/17/16 21:50 08/17/16 21:50 - Constitutional General appearance: comfortable - Neurologic Sensorimotor examination: other (Left hemineglect, left jordan paresthesia in midline fashion) Motor examination - right side: 5/5: deltoids, biceps, triceps, wrist flexion, wrist extension, mortgage loan specialist, hip flexors, tibialis Anterior, quadriceps, toe extension (EHL), plantarflexion Motor examination - left side: 4/5: deltoids, biceps, triceps, wrist flexion, wrist extension, hip flexors, mortgage loan specialist, quadriceps, tibialis Anterior, toe extension (EHL), plantarflexion Detailed sensory examination: other (Loss of pinprick and touch and vibration senses to the left face arm and leg in midline fashion) Posture: other (NOne) Reflexes: Biceps: 0, Triceps: 0, Brachioradialis: 0, Patella: 0, Achilles: 0 Mental Status Examination: awake, alert, oriented to person, oriented to place, oriented to time, follows commands appropriately, answers questions appropriately, no agnosia, no aphasia, no aproxia Cranial nerve examination: PERRL, EOMI, visual sterling intact, corneal reflexes brisk symmetrically, sensory to face intact, mastication intact, no facial asymmetry is present, no dysarthria, hearing is intact symmetrically, soft palate elevates bilaterally upon phonation, gag reflex intact, flexes SCM and trapezius muscles symmetrically with full power, tongue protrudes midline, no atrophy or facial fasiculations present Results - Laboratory Findings CBC and BMP: 08/24/16 04:34 08/24/16 04:34 Abnormal lab findings: Abnormal lab results RBC 3.48 M/mcL (3.82-4.97) L 08/24/16 04:34 Hgb 10.3 g/dL (11.5-15.4) L 08/24/16 04:34 Hct 32.5 % (35.3-44.9) L 08/24/16 04:34 VBG pCO2 38 mmHg (41-51) L 08/18/16 07:49 VBG pO2 182 mmHg (25-40) H 08/18/16 07:49 Carbon Dioxide 32 mEq/L (19-29) H 08/24/16 04:34 BUN 5 mg/dL (7-20) L 08/24/16 04:34 POC Glucose 131 (58-89) H 08/24/16 11:40 Lactic Acid 2.8 mmol/L (0.5-2.2) H 08/23/16 16:30 Calcium 8.1 mg/dL (8.6-10.8) L 08/24/16 04:34 Phosphorus 1.8 mg/dL (2.3-4.7) L 08/18/16 04:55 Magnesium 1.5 mg/dL (1.6-2.6) L 08/24/16 04:34 Iron 25 mcg/dL (50-170) L 08/24/16 04:34 % Saturation 9 % (15-50) L 08/24/16 04:34 Alkaline Phosphatase 129 Units/L (38-126) H 08/17/16 23:11 Creatine Kinase 13 Units/L (29-168) L 08/23/16 16:30 Albumin 3.0 g/dL (3.5-5.0) L 08/17/16 23:11 Albumin/Globulin Ratio 0.9 (1.1-2.2) L 08/17/16 23:11 Prealbumin 14.0 mg/dL (16.0-38.0) L 08/24/16 04:34 Beta-Hydroxybutyric Acd 0.41 mmol/L (0.02-0.27) H 08/17/16 23:11 Ur Specific [place] 1.009 (1.010-1.025) L 08/23/16 15:54 Urine Microscopic WBC 30-50 per hpf (0-3) H 08/18/16 13:58 Ur Squamous Epith Cells Many per lpf (None-Few) H 08/18/16 13:58 Urine Bacteria Many per hpf (None-Few) H 08/18/16 13:58 Consult Discharge Plan - Plan Referrals: Zehra Jamison, DAVID [Primary Care Provider] - 08/30/16 10:00 am (office is closed at this time)
[2016-08-24] MEDS: Insulin DETEMIR 100 UNIT/ML X5UNITS SQ SCH (21:37)
[2016-08-24] MEDS: PrednisoLONE Acetate 1% Opth 5 ML BOTTLE BOTH EYES SCH (21:42)
[2016-08-25] MEDS: *HR* OxyCODONE/APAP 5/325 TABLET PO PRN ×3 (01:25→14:38)
[2016-08-25] MEDS: *HR* Heparin 5,000 UNIT/ML VIAL SQ SCH (06:28)
[2016-08-25] MEDS: Insulin LISPRO 300 UNITS/3 ML VIAL SQ SCH (08:31)
[2016-08-25] MEDS: Atropine Sulfate 1% 40 DROP/2 ML BOTTLE RIGHT EYE SCH (08:31)
[2016-08-25] MEDS: PrednisoLONE Acetate 1% Opth 5 ML BOTTLE BOTH EYES SCH (08:32)
[2016-08-25] MEDS: Insulin DETEMIR 100 UNIT/ML X5UNITS SQ SCH (08:32)
[2016-08-25] MEDS ORDERED: Insulin LISPRO 300 UNITS/3 ML VIAL SQ SCH ×2 (09:24)
--- NOTE | 2016-08-25 11:26 | Discharge Summary ---
<Terry Alonso - Last Filed: 08/25/16 11:16> Date of Encounter: 08/25/16 Time of Encounter: 11:17 - Discharge Diagnosis (1) Abdominal pain Priority: Primary Status: Acute (2) Numbness Priority: Secondary Status: Acute (3) Obstipation Priority: Secondary Status: Acute (4) Diabetes Priority: Secondary Status: Acute (5) DKA (diabetic ketoacidoses) Priority: Secondary Status: Acute (6) Leukopenia Priority: Secondary Status: Acute (7) DVT prophylaxis Priority: Secondary Status: Acute (8) Anemia Priority: Secondary Status: Acute - Discharge Medications Prescriptions: Insulin ASPART [NovoLOG] 100 unit SQ TIDAC 30 Days Sennosides/Docusate Sodium [Senna Plus] 2 each PO BID 30 Days Home Medications: Ergocalciferol (VITAMIN D2) [Vitamin D2 (50,000 UNIT)] 50,000 unit PO WE [History] LORazepam [Ativan] 1 mg PO BID 02/02/16 [History] PrednisoLONE Acetate 1% Opth [PredFORTE 1%] 1 drop OP BID 02/02/16 [History] Timolol Maleate 0.5% 1 drop OP BID 02/02/16 [History] Atropine 1% Opth Drops 1 drop RIGHT EYE BID 02/15/16 [History] Oxycodone HCl/Acetaminophen [Percocet 5-325 mg Tablet] 1 tab PO Q6H PRN [History] Insulin ASPART [Novolog Flexpen] 0 unit SQ TIDWM 08/02/16 [History] Insulin Glargine,Hum.rec.anlog [Lantus Solostar] 20 unit SQ HS 08/02/16 [History ] Metoclopramide [Reglan] 10 mg PO Q6HR PRN #15 mls 08/05/16 [Rx] Insulin ASPART [NovoLOG] 100 unit SQ TIDAC 30 Days 08/25/16 [Rx] Sennosides/Docusate Sodium [Senna Plus] 2 each PO BID 30 Days 08/25/16 [Rx] Allergies/Adverse Reactions: Allergies hydrocodone Allergy (Verified 08/17/16 21:53) Hives Procedures/tests Complete & Pending: Procedures Performed prior 72 hours Category Date Time Status CT head/brain wo con [CT] Stat Cat Scan 08/23/16 17:27 Completed MR head/brain wo con [MR] Stat MRI 08/24/16 09:42 Completed Date of admission: 08/18/16 00:33 Primary care physician: Zehra Jamison Consults: 08/18/16 01:02 Consult to Endocrinology [CONS] Routine Consulting Provider: [facility] Reason for Consult: DKA Call Completed: Yes 08/20/16 16:21 Consult to Occupational Therapy [CONS] Routine Comment: Evaluate, develop and implement POC Consult to Physical Therapy [CONS] Routine Comment: Evaluate, develop and implement POC 08/21/16 10:53 Consult to Surgery [CONS] Routine Consulting Provider: [facility] Reason for Consult: Abd distention Call Completed: Yes 08/24/16 10:22 Consult to Neurology [CONS] Routine Consulting Provider: Neurology [facility] Reason for Consult: leFT SIDED NUMBNESS. Call Completed: Yes Discharging clinician: Terry Alonso Anticipated date of discharge: 08/25/16 - Patient Status Disposition: Home Health Service Condition: Serious Functional capacity at discharge: uses cane/walker Overall status at discharge: patient is progressing back to baseline - Discharge Instructions Follow Up With: Zehra Jamison, DAVID [Primary Care Provider] - 08/30/16 10:00 am (office is closed at this time) - Diet and Activity Activity: as per physical therapy Diet: diabetic diet Hospital course: Ms. Sierra is a 30 year old female with type one diabetes who was admitted to [facility] with DKA. She was treated with the DKA protocol and this resolved. She would also complain of abdominal pain. She had 2 CT scans of the abdomen during her hospitalization here. Both of which showed no acute abdominal findings. General surgery was consultd and did perform a colonoscopy. No abnormal findings and was a poor prep. She also complains of left sided numbness. A CT of the head and MRI of the head was performed. No acute findings however she did have some calcififications in the basal ganglia. She was also seen inconsultation by Neurology who recommended no further workup. Today the patient is medically stable. We will discharge her home with home health. - Time Spent with Patient Total time spent providing and/or coordinating discharge services: Greater than 30 minutes (I spent approximately 35 minutes discharging this patient.) - Constitutional Vitals: Temp Pulse Resp BP Pulse Ox 98.1 F 95 17 154/75 100 08/25/16 10:59 08/25/16 10:59 08/25/16 10:59 08/25/16 10:59 08/25/16 10:59 General appearance: Present: mild distress, A&O X 3, answers questions appropriately - Head Head exam: Present: atraumatic, normocephalic - Eye Eye exam: Present: conjuntiva pink, sclera anicteric Pupils: Present: PERRL - Neck Neck exam general surgery: Present: supple, trachea midline. Absent: lymphadenopathy - Respiratory Respiratory exam: Present: CTAB. Absent: accessory muscle use, rales, rhonchi, wheezes - Cardiovascular Cardiovascular exam: Present: RRR, +S1, +S2. Absent: diastolic murmur, gallop, rubs, systolic murmur - GI/Abdominal GI/Abdominal exam: Present: normal bowel sounds, soft, tenderness (left lower quadrant. ), no peritoneal signs. Absent: distended - Extremities Exam Extremities exam: Present: warm, radial pulses palpable and symetrical. Absent : calf tenderness, cyanotic, pedal edema - Neurological Exam Additional comments: Patietn still complains of Left sided numbness. Normal strenght and reflexes. CN intact. However limited as can not test CN1 or EOM with visual defecit. - Skin Skin exam: Present: dry, intact <Victor M Abreu - Last Filed: 08/25/16 17:27> Date of Encounter: 08/25/16 Procedures/tests Complete & Pending: Procedures Performed prior 72 hours Category Date Time Status CT head/brain wo con [CT] Stat Cat Scan 08/23/16 17:27 Completed MR head/brain wo con [MR] Stat MRI 08/24/16 09:42 Completed Date of admission: 08/18/16 00:33 Primary care physician: Zehra Jamison Consults: 08/18/16 01:02 Consult to Endocrinology [CONS] Routine Consulting Provider: [facility] Reason for Consult: DKA Call Completed: Yes 08/20/16 16:21 Consult to Occupational Therapy [CONS] Routine Comment: Evaluate, develop and implement POC Consult to Physical Therapy [CONS] Routine Comment: Evaluate, develop and implement POC 08/21/16 10:53 Consult to Surgery [CONS] Routine Consulting Provider: [facility] Reason for Consult: Abd distention Call Completed: Yes 08/24/16 10:22 Consult to Neurology [CONS] Routine Consulting Provider: [facility] Reason for Consult: leFT SIDED NUMBNESS. Call Completed: Yes Hospital course: Ms. Sierra is a 30 year old female - Time Spent with Patient Total time spent providing and/or coordinating discharge services: - Constitutional Vitals: Temp Pulse Resp BP Pulse Ox 98.5 F 95 19 131/81 99 08/25/16 14:30 08/25/16 14:30 08/25/16 14:30 08/25/16 14:30 08/25/16 14:30 - Attending Attestation I examined this patient and my medical decision-making was reviewed with the Resident Physician, Dr Alonso. I agree with the documented findings, disposition and treatment plan as described except to the extent set forth below. The patient is in no acute distress awake alert oriented 3. Heart is regular with normal S1-S2. Abdomen soft. Plan: DKA has resolved. She had extensive workup for abdominal pain which found no organic cause. Her insulin regimen has been adjusted and she will be discharged home with home health.
--- NOTE | 2016-08-25 11:41 | Physician Discharge Referral ---
Home Health/Hosp Referral Info Transfer to: Home Health Provider in Charge Post Discharge: PCP - Diagnosis (1) Abdominal pain Status: Acute (2) Numbness Status: Acute (3) Obstipation Status: Acute (4) Diabetes Status: Acute (5) DKA (diabetic ketoacidoses) Status: Acute (6) Leukopenia Status: Acute (7) DVT prophylaxis Status: Acute (8) Anemia Status: Acute - Respiratory Orders Smoking Cessation: Smoking cessation has been advised. For more information, call the [place] [employer] Quit Line at 7-139-MDFE-NOW. - Diet/Nutrition Diet/Nutrition Orders: Cardiac (Renal) - Activity Activity Orders: Ambulate (with asssit) - Services Needed Following services are medically necessary services: Home Health Aide, Physical Therapy, Occupational Therapy - Transfer Medications Prescriptions: Insulin ASPART [NovoLOG] 100 unit SQ TIDAC 30 Days Sennosides/Docusate Sodium [Senna Plus] 2 each PO BID 30 Days Home Medications: Ergocalciferol (VITAMIN D2) [Vitamin D2 (50,000 UNIT)] 50,000 unit PO WE [History] LORazepam [Ativan] 1 mg PO BID 02/02/16 [History] PrednisoLONE Acetate 1% Opth [PredFORTE 1%] 1 drop OP BID 02/02/16 [History] Timolol Maleate 0.5% 1 drop OP BID 02/02/16 [History] Atropine 1% Opth Drops 1 drop RIGHT EYE BID 02/15/16 [History] Oxycodone HCl/Acetaminophen [Percocet 5-325 mg Tablet] 1 tab PO Q6H PRN [History] Insulin ASPART [Novolog Flexpen] 0 unit SQ TIDWM 08/02/16 [History] Insulin Glargine,Hum.rec.anlog [Lantus Solostar] 20 unit SQ HS 08/02/16 [History ] Metoclopramide [Reglan] 10 mg PO Q6HR PRN #15 mls 08/05/16 [Rx] Insulin ASPART [NovoLOG] 100 unit SQ TIDAC 30 Days 08/25/16 [Rx] Sennosides/Docusate Sodium [Senna Plus] 2 each PO BID 30 Days 08/25/16 [Rx] Allergies/Adverse Reactions: Allergies hydrocodone Allergy (Verified 08/17/16 21:53) Hives Certification: Further, I certify that my clinical findings support that this patient is homebound (i.e. absences from home require considerable and taxing effort and are for medical reasons or hoahaoism services or infrequently or short duration when for other reasons) because: Homebound Reason: Leaving home requires considerable and taxing effort due to condition Attestation: My signature below is to certify that this patient is under my care and that I, or nurse practitioner, or a physician's licensed loan officer assistant working with me, has a face-to -face encounter with this patient.
[2016-08-25 14:32] VITALS: BP 131/81
[2016-08-28 08:33] LABS: Arsenic <10.0 ug/L (0.0-13.0); Cadmium <1.0 ug/L (0.0-5.0); Mercury <3 ug/L (0-10)
== END 2016-08-25 14:48 | disposition home health service (06) ==
LOC: EMEROO 21:47 → ICNU 21:47 → SUATTDRO 08-18 00:33 → ICNU 08-18 01:55 → SUATTDRO 08-18 05:58 → 2NNU 08-19 09:48 → 3ANU 08-21 15:38
PROVIDERS: ADMIT Internal Medicine; ATTEND Internal Medicine

== ENCOUNTER 2016-12-13 12:23 | Inpatient (IN) ==
[2016-12-13] MEDS ORDERED: *HR* Dextrose 50 % in Water (Syg) 50 ML SYRINGE IVP PRN (12:52)
[2016-12-13] MEDS ORDERED: Ondansetron 4 MG/2 ML VIAL IVP ONE ×3 (12:54→18:08)
[2016-12-13] MEDS: 0.9 % Sodium Chloride 1,000 ML IVC SCH ×8 (13:08→20:34)
[2016-12-13 13:27] LABS: Hemoglobin 11.3 g/dL (11.5-15.4); Mean Corpuscular HGB Conc 30.5 g/dL (31.6-35.5); Mean Corpuscular Hemoglobin 30.8 pg (28.0-33.3); Mean Corpuscular Volume 100.8 fL (83.0-100.0); Mean Platelet Volume 9.9 fL (9.4-12.4); Platelet Count 419 K/mcL (140-400); Red Blood Count 3.67 M/mcL (3.82-4.97); Red Cell Distribution Width 13.4 % (11.5-14.5); Segmented Neutrophils % 77.2 %
[2016-12-13 13:28] LABS: Basophils # 0.1 K/mcL (0.0-0.2); Basophils % 0.9 %; Eosinophils # 0.1 K/mcL (0.0-0.6); Eosinophils % 0.6 %; Immature Granulocytes % 0.8 % (0-4); Lymphocytes # 1.9 K/mcL (0.6-4.6); Lymphocytes % 13.9 %; Monocytes # 0.9 K/mcL (0.0-1.3); Monocytes % 6.6 %; Neutrophils # 10.6 K/mcL (1.6-8.9)
[2016-12-13 13:29] LABS: Bilirubin,Urine Negative (Negative); Blood,Urine Negative (Negative); Clarity,Urine Clear (Clear); Color,Urine Yellow (Yellow); Glucose,Urine (UA) >=1000 mg/dL (Normal); Ketones,Urine >=160 mg/dL (Negative); Leukocyte Esterase,Urine Negative (Negative); Nitrite,Urine Negative (Negative); PH,Urine 5.5 pH Units (5.0-8.0); Protein,Urine 30 mg/dL (Neg-Trace); Urobilinogen,Urine Normal (Normal)
[2016-12-13 13:30] LABS: VBG HCO3 6.2 mEq/L (21-27)
[2016-12-13 13:32] LABS: Bacteria,Urine None Seen per hpf (None-Few); Hyaline Casts,Urine None Seen per lpf (None-Few); RBC,Urine 0-3 per hpf (0-3); Squamous Epithelial Cell,Urine Many per lpf (None-Few); WBC,Urine 0-3 per hpf (0-3)
[2016-12-13 13:32] LABS: VBG PH 7.08 pH Units (7.32-7.42)
--- NOTE | 2016-12-13 13:42 | Emergency Department Note ---
Disposition Clinical Impression: DKA (diabetic ketoacidoses) Qualifiers: Diabetes mellitus type: type 1 Diabetes mellitus complication detail: without coma Qualified Code(s): E10.10 - Type 1 diabetes mellitus with ketoacidosis without coma Disposition: Admitted As Inpatient Condition: Fair Time of Disposition: 16:12 General Adult HPI - General Chief complaint: ED Shortness of Breath/Dyspnea Stated complaint: Elevated Blood Glucose Time Seen by Provider: 12/13/16 12:50 Source: patient, family Mode of arrival: private vehicle Limitations: no limitations Nursing Notes Reviewed: Yes Vital Signs Reviewed: Yes - History of Present Illness HPI Narrative: Patient is a 31-year-old female with a past medical history of type 1 diabetes presents to the ER plan of nausea, vomiting, chest pain, abdominal pain and increased thirst she states this feels like the last time she was in DKA which was less than 6 months ago. States that yesterday evening she is having nausea and diffuse abdominal pain and she checked her blood sugar and it was 302 she gave herself 14 units of NovoLog. She woke up this morning with worsening symptoms and chest pain and checked her sugar and just said "high". Patient states this feels like her DKA. States she has had a cough recently with no sputum production has been going on for the last 3 days. Other that she denies any drug or alcohol use, no changes in her medications. She states that they never found out why she went into DKA or last time, however they believe that her insulin may be going into scar tissue and sent into her subcutaneous tissue and this may be the cause of her high blood sugar. Pain Scale: 8 - Related Data Home Medications Medication Instructions Recorded Confirmed LORazepam [Ativan] 1 mg PO BID 02/02/16 12/13/16 Oxycodone HCl/Acetaminophen 1 tab PO Q6H PRN 02/15/16 12/13/16 [Percocet 5-325 mg Tablet] Insulin Glargine,Hum.rec.anlog 35 unit SQ BID 08/02/16 12/13/16 [Lantus Solostar] Insulin ASPART [NovoLOG] 10 unit SQ TIDAC 12/13/16 12/13/16 Allergies Allergy/AdvReac Type Severity Reaction Status Date / Time hydrocodone Allergy Hives Verified 12/13/16 12:28 Past Medical History - Past Medical History Medical history: Reports: arthritis, cirrhosis, diabetes, GERD, glaucoma, hyperlipidemia, hypertension, liver disease, osteoporosis, other Surgical history: Reports: , cholecystectomy, sinus surgery, other Psychiatric history: Reports: anxiety 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 She is laying in bed her mucus membranes are dry and she is tachycardic on monitor. She is 100% on room air blood pressure is 150s over 90s and she is afebrile. - General Limitations: no limitations General appearance: alert, in distress - Head Head exam: atraumatic, normocephalic, normal inspection - Eye Eye exam: Present: normal appearance, PERRL - ENT ENT exam: normal exam, normal oropharynx, mucous membranes dry - Neck Neck exam: Present: normal inspection, full ROM - Chest Chest inspection: Present: normal inspection, symmetric chest wall rise. Absent : tenderness - Respiratory Respiratory exam: Present: normal lung sounds bilaterally. Absent: respiratory distress, wheezes - Cardiovascular Cardiovascular exam: Present: normal rhythm, tachycardia, normal heart sounds - Abdominal Exam Abdominal exam: Present: tenderness, normal bowel sounds. Absent: guarding, rebound, rigidity Abdominal tenderness: Present: epigastrium, diffuse, moderate - Extremities Exam Extremities exam: Present: normal inspection, full ROM, normal capillary refill. Absent: tenderness, pedal edema - Expanded Lower Extremity Exam Neurovascular/Tendon exam: Present: normal capillary refill. Absent: pulse deficit - Neurological Exam Neurological exam: Present: alert, oriented X3 - Expanded Neurological Exam Patient oriented to: Present: person, place, time Speech: Present: fluid speech Coma Scale Eye Opening: Spontaneous Coma Scale Motor Response: Obeys Commands Coma Scale Verbal Response: Oriented Coma Scale Total: 15 - Psychiatric Psychiatric exam: Present: normal affect, normal mood - Skin Skin exam: Present: warm, dry, intact, normal color Course - Reevaluation(s) Reevaluation #1: Patient starting her second liter of normal saline. Waiting for chemical panel to come back to check her potassium of 4 restart insulin. Patient's heart rate still in the 140s. Patient is alert and oriented 3. I also ordered her additional zofran because she is still nauseous. Time: 14:04 Reevaluation #2: Patient is on Lopressor 100mg BID. She has not taken it today. She was didn't know the name of this medication, I requested the clinical pharmacy manager to look it up. Time: 14:20 Reevaluation #3: Patient's potassium came back at Vital Signs Temperature 97.7 F 12/13/16 12:25 Pulse Rate 141 12/13/16 12:25 Respiratory Rate 24 12/13/16 12:25 Blood Pressure 151/83 12/13/16 12:25 O2 Sat by Pulse Oximetry 100 12/13/16 12:25 Temperature 97.7 F 12/13/16 12:25 Pulse Rate 110 12/13/16 16:12 Respiratory Rate 16 12/13/16 16:12 Blood Pressure 113/55 12/13/16 16:12 O2 Sat by Pulse Oximetry 99 12/13/16 16:12 Oxygen Delivery Oxygen Delivery Room Air Medical Decision Making - Medical Records Medical records reviewed: Yes I reviewed the patient's medical records. - Lab Data Lab results reviewed: Yes I reviewed the patient's lab results. Result diagrams: 12/13/16 13:18 12/13/16 17:07 Lab Results 12/13/16 12/13/16 12/13/16 Range/Units 12:41 12:45 12:48 WBC (4.3-11.1) K/mcL RBC (3.82-4.97) M/mcL Hgb (11.5-15.4) g/dL Hct (35.3-44.9) % MCV (83.0-100.0) fL MCH (28.0-33.3) pg MCHC (31.6-35.5) g/dL RDW (11.5-14.5) % Plt Count (140-400) K/mcL MPV (9.4-12.4) fL Immature Gran % (0-4) % Seg Neutrophils % % Lymphocytes % % Monocytes % % Eosinophils % % Basophils % % Neutrophils # (1.6-8.9) K/mcL Lymphocytes # (0.6-4.6) K/mcL Monocytes # (0.0-1.3) K/mcL Eosinophils # (0.0-0.6) K/mcL Basophils # (0.0-0.2) K/mcL Immature Plt Fraction (1.1-6.1) % VBG pH (7.32-7.42) pH Units VBG pCO2 (41-51) mmHg VBG pO2 (25-40) mmHg VBG HCO3 (21-27) mEq/L Sodium (136-145) mEq/L Potassium (3.5-4.5) mEq/L Chloride (98-109) mEq/L Carbon Dioxide (19-29) mEq/L BUN (7-20) mg/dL Creatinine (0.57-1.11) mg/dL Est GFR ( Amer) (> 60) Est GFR (Non-Af Amer) (> 60) BUN/Creatinine Ratio (6-26) Glucose (70-99) mg/dL POC Glucose > 600 H* > 600 H* (58-89) Calculated Osmolality (280-300) Calcium (8.6-10.8) mg/dL Phosphorus (2.3-4.7) mg/dL Magnesium (1.6-2.6) mg/dL Total Bilirubin (0.2-1.2) mg/dL AST (5-34) Units/L ALT (0-55) Units/L Alkaline Phosphatase (38-126) Units/L Troponin I (0-0.03) ng/mL Serum Total Protein (6.0-8.3) g/dL Albumin (3.5-5.0) g/dL Globulin (2.4-3.5) g/dL Albumin/Globulin Ratio (1.1-2.2) Lipase (8-78) Units/L Beta-Hydroxybutyric Acd (0.02-0.27) mmol/L Beta HCG, Quant (0-4) mIU/ml Urine Color Yellow (Yellow) Urine Clarity Clear (Clear) Urine pH 5.5 (5.0-8.0) pH Units Ur Specific [place] 1.030 H (1.010-1.025) Urine Protein 30 H (Neg-Trace) mg/dL Urine Glucose (UA) >=1000 H (Normal) mg/dL Urine Ketones >=160 H (Negative) mg/dL Urine Blood Negative (Negative) Urine Nitrite Negative (Negative) Urine Bilirubin Negative (Negative) Urine Urobilinogen Normal (Normal) mg/dL Ur Leukocyte Esterase Negative (Negative) Urine Microscopic RBC 0-3 (0-3) per hpf Urine Microscopic WBC 0-3 (0-3) per hpf Ur Squamous Epith Cells Many H (None-Few) per lpf Urine Bacteria None Seen (None-Few) per hpf Hyaline Casts None Seen (None-Few) per lpf Ur Culture Indicated? NO (NO) 12/13/16 12/13/16 12/13/16 Range/Units 13:18 13:18 13:18 WBC 13.7 H (4.3-11.1) K/mcL RBC 3.67 L (3.82-4.97) M/mcL Hgb 11.3 L (11.5-15.4) g/dL Hct 37.0 (35.3-44.9) % MCV 100.8 H (83.0-100.0) fL MCH 30.8 (28.0-33.3) pg MCHC 30.5 L (31.6-35.5) g/dL RDW 13.4 (11.5-14.5) % Plt Count 419 H (140-400) K/mcL MPV 9.9 (9.4-12.4) fL Immature Gran % 0.8 (0-4) % Seg Neutrophils % 77.2 % Lymphocytes % 13.9 % Monocytes % 6.6 % Eosinophils % 0.6 % Basophils % 0.9 % Neutrophils # 10.6 H (1.6-8.9) K/mcL Lymphocytes # 1.9 (0.6-4.6) K/mcL Monocytes # 0.9 (0.0-1.3) K/mcL Eosinophils # 0.1 (0.0-0.6) K/mcL Basophils # 0.1 (0.0-0.2) K/mcL Immature Plt Fraction 2.0 (1.1-6.1) % VBG pH (7.32-7.42) pH Units VBG pCO2 (41-51) mmHg VBG pO2 (25-40) mmHg VBG HCO3 (21-27) mEq/L Sodium 127 L (136-145) mEq/L Potassium 6.9 H* (3.5-4.5) mEq/L Chloride 95 L (98-109) mEq/L Carbon Dioxide 7 L* (19-29) mEq/L BUN 17 (7-20) mg/dL Creatinine 1.85 H (0.57-1.11) mg/dL Est GFR ( Amer) 38 L (> 60) Est GFR (Non-Af Amer) 32 L (> 60) BUN/Creatinine Ratio 9 (6-26) Glucose 911 H* (70-99) mg/dL POC Glucose (58-89) Calculated Osmolality 311 H (280-300) Calcium 8.8 (8.6-10.8) mg/dL Phosphorus 5.3 H (2.3-4.7) mg/dL Magnesium 1.6 (1.6-2.6) mg/dL Total Bilirubin 0.3 (0.2-1.2) mg/dL AST 15 (5-34) Units/L ALT 14 (0-55) Units/L Alkaline Phosphatase 186 H (38-126) Units/L Troponin I 0.02 (0-0.03) ng/mL Serum Total Protein 6.3 (6.0-8.3) g/dL Albumin 3.0 L (3.5-5.0) g/dL Globulin 3.3 (2.4-3.5) g/dL Albumin/Globulin Ratio 0.9 L (1.1-2.2) Lipase 19 (8-78) Units/L Beta-Hydroxybutyric Acd > 2.00 H (0.02-0.27) mmol/L Beta HCG, Quant < 1 (0-4) mIU/ml Urine Color (Yellow) Urine Clarity (Clear) Urine pH (5.0-8.0) pH Units Ur Specific [place] (1.010-1.025) Urine Protein (Neg-Trace) mg/dL Urine Glucose (UA) (Normal) mg/dL Urine Ketones (Negative) mg/dL Urine Blood (Negative) Urine Nitrite (Negative) Urine Bilirubin (Negative) Urine Urobilinogen (Normal) mg/dL Ur Leukocyte Esterase (Negative) Urine Microscopic RBC (0-3) per hpf Urine Microscopic WBC (0-3) per hpf Ur Squamous Epith Cells (None-Few) per lpf Urine Bacteria (None-Few) per hpf Hyaline Casts (None-Few) per lpf Ur Culture Indicated? (NO) 12/13/16 Range/Units 13:18 WBC (4.3-11.1) K/mcL RBC (3.82-4.97) M/mcL Hgb (11.5-15.4) g/dL Hct (35.3-44.9) % MCV (83.0-100.0) fL MCH (28.0-33.3) pg MCHC (31.6-35.5) g/dL RDW (11.5-14.5) % Plt Count (140-400) K/mcL MPV (9.4-12.4) fL Immature Gran % (0-4) % Seg Neutrophils % % Lymphocytes % % Monocytes % % Eosinophils % % Basophils % % Neutrophils # (1.6-8.9) K/mcL Lymphocytes # (0.6-4.6) K/mcL Monocytes # (0.0-1.3) K/mcL Eosinophils # (0.0-0.6) K/mcL Basophils # (0.0-0.2) K/mcL Immature Plt Fraction (1.1-6.1) % VBG pH 7.08 L* (7.32-7.42) pH Units VBG pCO2 21 L (41-51) mmHg VBG pO2 84 H (25-40) mmHg VBG HCO3 6.2 L (21-27) mEq/L Sodium (136-145) mEq/L Potassium (3.5-4.5) mEq/L Chloride (98-109) mEq/L Carbon Dioxide (19-29) mEq/L BUN (7-20) mg/dL Creatinine (0.57-1.11) mg/dL Est GFR ( Amer) (> 60) Est GFR (Non-Af Amer) (> 60) BUN/Creatinine Ratio (6-26) Glucose (70-99) mg/dL POC Glucose (58-89) Calculated Osmolality (280-300) Calcium (8.6-10.8) mg/dL Phosphorus (2.3-4.7) mg/dL Magnesium (1.6-2.6) mg/dL Total Bilirubin (0.2-1.2) mg/dL AST (5-34) Units/L ALT (0-55) Units/L Alkaline Phosphatase (38-126) Units/L Troponin I (0-0.03) ng/mL Serum Total Protein (6.0-8.3) g/dL Albumin (3.5-5.0) g/dL Globulin (2.4-3.5) g/dL Albumin/Globulin Ratio (1.1-2.2) Lipase (8-78) Units/L Beta-Hydroxybutyric Acd (0.02-0.27) mmol/L Beta HCG, Quant (0-4) mIU/ml Urine Color (Yellow) Urine Clarity (Clear) Urine pH (5.0-8.0) pH Units Ur Specific [place] (1.010-1.025) Urine Protein (Neg-Trace) mg/dL Urine Glucose (UA) (Normal) mg/dL Urine Ketones (Negative) mg/dL Urine Blood (Negative) Urine Nitrite (Negative) Urine Bilirubin (Negative) Urine Urobilinogen (Normal) mg/dL Ur Leukocyte Esterase (Negative) Urine Microscopic RBC (0-3) per hpf Urine Microscopic WBC (0-3) per hpf Ur Squamous Epith Cells (None-Few) per lpf Urine Bacteria (None-Few) per hpf Hyaline Casts (None-Few) per lpf Ur Culture Indicated? (NO) - Radiology Data Radiology results reviewed: Yes I reviewed the patient's radiology results. Chest X-Ray 12/13/16 13:35 IMPRESSION: Normal chest x-ray D/ / Finn Kennedy MD / Finn Kennedy MD Interpreting Provider: Finn Kennedy MD - EKG Data EKG #1 EKG attestation: Yes I reviewed and interpreted this EKG. EKG results narrative: Patient's EKG was done at 13:23. The sinus tachycardia rate of 140 bpm. Normal access. TN is 135, QRS is 70, QT is 286 is within normal limits. The tachycardia is new when compared to the EKG that was unchanged 2016. No signs of ischemia or infarction. Critical Care Time Critical Care Time: Yes Total Critical Care Time: 35 Attestation: The high probability of a clinically significant, sudden or life threatening deterioration of the [endo] system(s) required my full and direct attention, intervention and personal management. The aggregate critical care time was [35] minutes. This time is in addition to time spent performing reported procedures but includes the following: [x] Data Review and interpretation [x] Patient assessment and monitoring of vital signs [x] Documentation [x] Medication orders and management Attestation Statement - Attestation Attestation: I personally interviewed and examined this patient and my medical decision- making was reviewed with the Resident Physician, Dr. Evans. I agree with the documented findings, disposition and treatment plan as described except to the extent set forth below. She is a 31-year-old insulin-dependent diabetic who presents to the emergency department stating "I am in DKA again". Patient's been having generalized abdominal cramping and intermittent associated with nausea vomiting and elevated blood sugars since yesterday. This morning her Accu-Chek just read high and she was feeling worse so she was brought to the emergency department by family member. Patient has had some mild upper respiratory symptoms as of recent including nasal congestion and mild nonproductive cough but no fevers or chills and no posttussive emesis. Patient denies any other concerns for infection no urinary symptoms. I agree with patient's physical exam findings as documented. Clinically dehydrated and tachycardic with a heart rate around 1 40 bpm. Patient's blood pressure is stable. She was started on IV fluids on arrival 2 large bore IVs were established and she received 3 L of normal saline as bolus. Labs were drawn and sent, chest x-ray was obtained, EKG just shows a sinus tachycardia with no acute ST or T-wave changes appreciated. Patient was given pain meds and antiemetics. Patient's labs show a significant hyperglycemia in the 900s with associated Acidosis with a CO2 of 7. Patient with an elevated beta hydroxybutyrate. Insulin drip was initiated IV. Patient was continued on IV fluids. Patient's VBG shows results consistent with her metabolic acidosis. Patient's chest x-ray was unremarkable for any consolidation or infiltrate. Patient's labs also show a hyperkalemia. Patient was given calcium gluconate, sodium bicarbonate, and Kayexalate. Patient does not have any concerning EKG changes at this time and will continue to be monitored closely. With patient's laboratory values and extreme acidosis we were concerned and initially touched base with the artificial fly tier in the ICU. They commented that since her mental status remained good she was having no respiratory distress that they preferred she be admitted to the floor. Case was discussed with the hospitalist who agreed to admit the patient for further evaluation and management. Patient's blood sugar will be watched closely since insulin drips been initiated. Patient received all medications in regards to her elevated potassium. Patient remains in critical condition but with good mental status and no deterioration over time.
[2016-12-13] MEDS ORDERED: *HR* Morphine 2 MG/ML SYRINGE IVP ONE ×2 (14:13→18:08)
[2016-12-13 14:27] LABS: Beta-Hydroxybutyric Acid > 2.00 mmol/L (0.02-0.27)
[2016-12-13 14:40] LABS: Alanine Aminotransferase 14 Units/L (0-55); Albumin/Globulin Ratio 0.9 (1.1-2.2); Alkaline Phosphatase 186 Units/L (38-126); Aspartate Amino Transferase 15 Units/L (5-34); BUN/Creatinine Ratio 9 (6-26); Bilirubin,Total 0.3 mg/dL (0.2-1.2); Blood Urea Nitrogen 17 mg/dL (7-20); Calcium 8.8 mg/dL (8.6-10.8); Chloride 95 mEq/L (98-109); Globulin 3.3 g/dL (2.4-3.5); Lipase 19 Units/L (8-78); Magnesium 1.6 mg/dL (1.6-2.6); Phosphorous 5.3 mg/dL (2.3-4.7); Sodium 127 mEq/L (136-145); Total Protein 6.3 g/dL (6.0-8.3); eGFR For African Americans 38 (> 60); eGFR For Non-African Americans 32 (> 60)
[2016-12-13 14:43] LABS: Carbon Dioxide 7 mEq/L (19-29); Potassium 6.9 mEq/L (3.5-4.5)
[2016-12-13] MEDS ORDERED: 0.9 % Sodium Chloride 1,000 ML IVC ONE (14:47)
[2016-12-13] MEDS ORDERED: Calcium Gluconate 1,000 MG in D5% in Water 100 ML IVPB ONE (14:49)
[2016-12-13] MEDS ORDERED: Sodium Bicarbonate 50 MEQ/50 ML VIAL IVP ONE (14:49)
[2016-12-13 14:54] LABS: Osmolality,Calculated 311 (280-300)
[2016-12-13 14:59] LABS: Glucose 911 mg/dL (70-99)
[2016-12-13] MEDS ORDERED: Insulin Human Regular 100 UNIT in 0.9 % Sodium Chloride 100 ML IVC SCH (15:00)
[2016-12-13] MEDS ORDERED: *HR* Metoprolol 5 MG/5 ML VIAL IVP ONE (15:39)
[2016-12-13] MEDS ORDERED: Naloxone 0.4 MG/ML INJ IVP PRN (16:03)
[2016-12-13] MEDS ORDERED: Insulin Regular, Human 100 UNIT/ML IV PRN (16:08)
--- NOTE | 2016-12-13 16:52 | Internal Med History&Physical ---
Date of Encounter: 12/13/16 Time of Encounter: 16:15 Assessment and Plan (1) DKA (diabetic ketoacidoses) Current visit: No Status: Acute Secondary to underlying infection (tooth infection) pt reports of finishing her abx course continue IV fluids and insulin drip as per DKA protocol accuchecks q1h and BMP q2h NPO at this time severe metabolic acidosis secondary to DKA pt received 1amp of bicarb in the ER, will continue to monitor will start Levemir dose once DKA resolves Patient needs a close outpatient endocrinology follow up given recurrent episodes of DKA Qualifiers: Diabetes mellitus type: type 1 Diabetes mellitus complication detail: without coma Qualified Code(s): E10.10 - Type 1 diabetes mellitus with ketoacidosis without coma (2) Leukocytosis Current visit: No Status: Acute likely reactive recently finished abx course for tooth infection monitor off abx at this time Qualifiers: Leukocytosis type: unspecified Qualified Code(s): D72.829 - Elevated white blood cell count, unspecified (3) Hyperkalemia Current visit: No Status: Acute no ekg changes reported pt received Calcium gluconate, bicarb, insulin, kayexalate in the ER continue tele monitoring closely monitor K level continue to closely monitor electrolytes and replace as needed (4) Type 1 diabetes Current visit: No Status: Acute continue insulin therapy as per DKA protocol at this time once DKA resolves, initiate basal and short acting insulin therapy closely monitor FS and BG Qualifiers: Diabetes mellitus complication status: with unspecified complications Qualified Code(s): E10.8 - Type 1 diabetes mellitus with unspecified complications (5) DVT prophylaxis Current visit: No Status: Acute Heparin SQ Internal Medicine - H&P: HPI Chief complaint: hyperglycemia Admitted From: Home Plans for Post Hospital Care: Home History of present illness: Ms. Sierra is a 31 year old female with extensive PMH including type I DM who presents to the ER for management of nausea, vomiting, and hyperglycemia. Upon arrival to the ER, patient is found to have severe acidosis secondary to DKA. Patient has history of multiple admissions for HHS/DKA. She states she was recently finished antibiotics for a tooth infection and anytime she gets an infectious she goes into DKA. She is weak but able to provide history. She reports of diffuse abdominal pain which is improving since her hospitalization. She denies any headache, chest pain, sob, fever, or chills at this time. Past Med Surg Social Fam HX - Past Medical History Medical history: arthritis, cirrhosis, diabetes, GERD, glaucoma, hyperlipidemia , hypertension, liver disease, osteoporosis, other Psychiatric history: anxiety - Past Surgical History Surgical History: , cholecystectomy, sinus surgery, other - Social History Smoking Status: Never smoker Smokeless Tobacco Status: No Alcohol use: none Drug use: none - Family History Grandmother Family Member Ethnicity: Non- Living Status: Still Living Hx Family Cardiac Disorders: No Hx Family Respiratory Disorders: No Hx Family Cancer: No Hx Family GI Disorders: No Hx Family Endocrine Disorder: Yes (type 2 diabetes) Hx Family Neuromuscular Disorders: No Hx Family Neurologic Disorders: Yes (stroke) Hx Family HEENT Disorders: No Hx Family Autoimmune Disorders: No Internal Medicine - H&P: Meds LORazepam [Ativan] 1 mg PO BID 02/02/16 [History] Oxycodone HCl/Acetaminophen [Percocet 5-325 mg Tablet] 1 tab PO Q6H PRN [History] Insulin Glargine,Hum.rec.anlog [Lantus Solostar] 35 unit SQ BID 08/02/16 [ History] Insulin ASPART [NovoLOG] 10 unit SQ TIDAC 12/13/16 [History] 3 Allergy/AdvReac Type Severity Reaction Status Date / Time hydrocodone Allergy Hives Verified 12/13/16 12:28 All Systems PM: A 10-system review of systems was performed and is negative for pertinent findings except as documented above in the HPI. - Constitutional Constitutional: as per HPI - Constitutional Vitals: Temp Pulse Resp BP Pulse Ox 97.7 F 110 16 113/55 99 12/13/16 12:25 12/13/16 16:12 12/13/16 16:12 12/13/16 16:12 12/13/16 16:12 General appearance: Present: mild distress (generalized weakness), A&O X 3, underweight, answers questions appropriately - Head Head exam: Present: atraumatic, normocephalic - Eye Eye exam: Present: conjuntiva pink, sclera anicteric - Respiratory Respiratory exam: Present: CTAB. Absent: respiratory distress, wheezes - Cardiovascular Cardiovascular exam: Present: +S1, +S2, tachycardia - GI/Abdominal GI/Abdominal exam: Present: normal bowel sounds, soft, no peritoneal signs. Absent: distended, tenderness - Extremities Exam Extremities exam: Present: warm, radial pulses palpable and symmetrical. Absent : calf tenderness, cyanotic, pedal edema - Neurological Exam Neurological exam: Present: alert, oriented X3 - Psychiatric Psychiatric exam: Present: normal affect, normal mood Internal Med - H&P Results - Labs CBC & Chem 7: 12/13/16 13:18 12/13/16 13:18
[2016-12-13 17:27] LABS: BUN/Creatinine Ratio 11 (6-26); Blood Urea Nitrogen 17 mg/dL (7-20); Calcium 7.7 mg/dL (8.6-10.8); Chloride 110 mEq/L (98-109); Magnesium 1.6 mg/dL (1.6-2.6); Osmolality,Calculated 322 (280-300); Phosphorous 4.3 mg/dL (2.3-4.7); eGFR For African Americans 45 (> 60); eGFR For Non-African Americans 37 (> 60)
[2016-12-13 17:38] LABS: Sodium 137 mEq/L (136-145)
[2016-12-13 17:44] LABS: Carbon Dioxide < 5 mEq/L (19-29); Potassium 6.9 mEq/L (3.5-4.5)
[2016-12-13 17:45] LABS: Glucose 752 mg/dL (70-99)
[2016-12-13 19:08] LABS: BUN/Creatinine Ratio 10 (6-26); Blood Urea Nitrogen 15 mg/dL (7-20); Calcium 7.7 mg/dL (8.6-10.8); Chloride 116 mEq/L (98-109); Glucose 425 mg/dL (70-99); Osmolality,Calculated 313 (280-300); Potassium 6.2 mEq/L (3.5-4.5); Sodium 142 mEq/L (136-145); eGFR For African Americans 48 (> 60); eGFR For Non-African Americans 40 (> 60)
[2016-12-13 19:37] LABS: Carbon Dioxide < 5 mEq/L (19-29)
[2016-12-13] MEDS: *HR* Morphine 2 MG/ML SYRINGE IVP PRN (20:12)
[2016-12-13] MEDS: *HR* Promethazine 25 MG/ML VIAL IVP PRN (20:13)
[2016-12-13 20:52] LABS: VBG HCO3 6.9 mEq/L (21-27); VBG PH 7.3 pH Units (7.32-7.42)
[2016-12-13] MEDS: *HR* Heparin 5,000 UNIT/ML VIAL SQ SCH (21:04)
[2016-12-13] MEDS: D5% in 0.45% NACL 1,000 ML IVC PRN (21:05)
[2016-12-13 21:47] LABS: Potassium 5.3 mEq/L (3.5-4.5)
[2016-12-13 21:48] LABS: Calcium 7.9 mg/dL (8.6-10.8); Magnesium 1.6 mg/dL (1.6-2.6); Phosphorous 2.8 mg/dL (2.3-4.7)
[2016-12-14] MEDS: D5% in 0.45% NACL 1,000 ML IVC PRN (01:13)
[2016-12-14] MEDS: *HR* Morphine 2 MG/ML SYRINGE IVP PRN ×5 (01:13→23:29)
[2016-12-14 01:55] LABS: BUN/Creatinine Ratio 9 (6-26); Blood Urea Nitrogen 11 mg/dL (7-20); Calcium 7.5 mg/dL (8.6-10.8); Carbon Dioxide 20 mEq/L (19-29); Chloride 116 mEq/L (98-109); Glucose 151 mg/dL (70-99); Magnesium 1.4 mg/dL (1.6-2.6); Osmolality,Calculated 306 (280-300); Sodium 147 mEq/L (136-145); eGFR For African Americans > 60 (> 60); eGFR For Non-African Americans 53 (> 60)
[2016-12-14 01:59] LABS: Phosphorous 1.6 mg/dL (2.3-4.7); Potassium 3.2 mEq/L (3.5-4.5)
[2016-12-14 02:03] LABS: Basophils % 0.3 %; Eosinophils % 0.1 %; Hematocrit 29.3 % (35.3-44.9); Hemoglobin 9.6 g/dL (11.5-15.4); Immature Granulocytes % 0.8 % (0-4); Immature Platelets 1.3 % (1.1-6.1); Lymphocytes # 2.2 K/mcL (0.6-4.6); Lymphocytes % 19.5 %; Mean Corpuscular HGB Conc 32.8 g/dL (31.6-35.5); Mean Corpuscular Hemoglobin 30.9 pg (28.0-33.3); Mean Corpuscular Volume 94.2 fL (83.0-100.0); Mean Platelet Volume 9.7 fL (9.4-12.4); Monocytes # 0.7 K/mcL (0.0-1.3); Monocytes % 6.4 %; Neutrophils # 8.1 K/mcL (1.6-8.9); Platelet Count 337 K/mcL (140-400); Red Blood Count 3.11 M/mcL (3.82-4.97); Red Cell Distribution Width 13.5 % (11.5-14.5); Segmented Neutrophils % 72.9 %
[2016-12-14] MEDS ORDERED: Magnesium Sulfate 2 GM in D5% in Water 100 ML IVPB PRN (02:12)
[2016-12-14] MEDS ORDERED: Potassium Phosphate 44 MEQ in 0.9 % Sodium Chloride 250 ML IVPB PRN (02:12)
[2016-12-14 02:17] LABS: Hemoglobin A1C 10.6 %
[2016-12-14] MEDS ORDERED: Insulin DETEMIR 100 UNIT/ML X5UNITS SQ ONE (02:17)
[2016-12-14] MEDS: Calcium Gluconate 1,000 MG in D5% in Water 100 ML IVPB PRN ×2 (03:01→13:37)
[2016-12-14] MEDS: *HR* Heparin 5,000 UNIT/ML VIAL SQ SCH ×3 (04:29→20:47)
[2016-12-14] MEDS: Insulin LISPRO 300 UNITS/3 ML VIAL SQ SCH ×4 (07:35→20:47)
[2016-12-14 08:21] LABS: BUN/Creatinine Ratio 9 (6-26); Blood Urea Nitrogen 9 mg/dL (7-20); Calcium 7.6 mg/dL (8.6-10.8); Carbon Dioxide 21 mEq/L (19-29); Chloride 114 mEq/L (98-109); Glucose 64 mg/dL (70-99); Osmolality,Calculated 293 (280-300); Potassium 3.7 mEq/L (3.5-4.5); Sodium 143 mEq/L (136-145); eGFR For African Americans > 60 (> 60); eGFR For Non-African Americans > 60 (> 60)
[2016-12-14] MEDS: *HR* Dextrose 50 % in Water (Syg) 50 ML SYRINGE IVP PRN ×2 (08:38→14:22)
[2016-12-14 11:18] LABS: BUN/Creatinine Ratio 8 (6-26); Blood Urea Nitrogen 8 mg/dL (7-20); Calcium 7.6 mg/dL (8.6-10.8); Carbon Dioxide 21 mEq/L (19-29); Chloride 111 mEq/L (98-109); Glucose 103 mg/dL (70-99); Magnesium 1.8 mg/dL (1.6-2.6); Osmolality,Calculated 289 (280-300); Phosphorous 2.3 mg/dL (2.3-4.7); Potassium 4.1 mEq/L (3.5-4.5); Sodium 140 mEq/L (136-145); eGFR For African Americans > 60 (> 60); eGFR For Non-African Americans > 60 (> 60)
[2016-12-14 11:22] LABS: Ionized Calcium 1.05 mmol/L (1.15-1.35)
--- NOTE | 2016-12-14 11:24 | Internal Med Progress Note ---
Date of Encounter: 12/14/16 Time of Encounter: 11:22 - Assessment and plan (1) DKA (diabetic ketoacidoses) Current Visit: Yes Status: Acute Assessment and plan: Patient is well known to our service with multiple previous admissions with similar complaints. Patient is noted to have labile blood sugars. Currently resolved DKA, off IV insulin drip. Continue Accu-Chek blood glucose monitoring with sliding scale insulin as needed. Patient only received 10 units of Levemir last night and continues to have episodes of hypoglycemia. She does have poor oral intake due to persistent gastroparesis and nausea. Continue to monitor and replace electrolytes. Qualifiers: Diabetes mellitus type: type 1 Diabetes mellitus complication detail: without coma Qualified Code(s): E10.10 - Type 1 diabetes mellitus with ketoacidosis without coma (2) Hyperkalemia Current Visit: Yes Status: Resolved (3) PAOLA (acute kidney injury) Current Visit: Yes Status: Resolved (4) Cirrhosis Current Visit: Yes Status: Chronic Qualifiers: Hepatic cirrhosis type: unspecified hepatic cirrhosis Ascites presence: without ascites Qualified Code(s): K74.60 - Unspecified cirrhosis of liver (5) DURAN (nonalcoholic steatohepatitis) Current Visit: Yes Status: Chronic (6) Abdominal pain Current Visit: Yes Status: Chronic Assessment and plan: Patient is noted to have chronic bilateral lower quadrant abdominal pain. Pain control with when necessary oral Percocet and IV morphine. Multiple imaging studies in the past have not revealed any acute abnormality. Qualifiers: Abdominal location: left lower quadrant Qualified Code(s): R10.32 - Left lower quadrant pain (7) Gastroparesis diabeticorum Current Visit: Yes Status: Chronic Assessment and plan: Supportive care with Reglan and when necessary antiemetics. (8) HLD (hyperlipidemia) Current Visit: Yes Status: Chronic Qualifiers: Hyperlipidemia type: mixed hyperlipidemia Qualified Code(s): E78.2 - Mixed hyperlipidemia (9) Diabetes mellitus type 1 Current Visit: Yes Status: Chronic Assessment and plan: Requires close outpatient endocrinology follow-up. Hemoglobin A1c noted to be 10.6%. Will start IV hydration with D5 normal saline due to episodes of hypoglycemia with every 4 hourly Accu-Chek blood glucose monitoring. Qualifiers: Diabetes mellitus complication status: with ketoacidosis Diabetes mellitus complication detail: without coma Qualified Code(s): E10.10 - Type 1 diabetes mellitus with ketoacidosis without coma - Subjective Interval history: Reports nausea and abdominal pain, mostly chronic; nausea and vomiting improved since yesterday; no fever/chills, toothache; off IV insulin drip; - Constitutional Vitals: Temp Pulse Resp BP Pulse Ox 98.2 F 114 17 134/77 96 12/14/16 11:09 12/14/16 11:09 12/14/16 11:09 12/14/16 11:09 12/14/16 11:09 General appearance: Present: A&O X 3 (appears tired), underweight, answers questions appropriately - Eye Additional comments: legally blind B/L - Respiratory Respiratory exam: Present: CTAB. Absent: accessory muscle use, rales, rhonchi, wheezes - Cardiovascular Cardiovascular exam: Present: RRR, +S1, +S2, tachycardia. Absent: diastolic murmur, gallop, rubs, systolic murmur - GI/Abdominal GI/Abdominal exam: Present: normal bowel sounds, soft (tenderness in RLQ and LLQ , no guarding or rigidity), no peritoneal signs. Absent: distended, tenderness - Extremities Exam Extremities exam: Present: full ROM, warm, radial pulses palpable and symmetrical. Absent: calf tenderness, cyanotic, pedal edema Internal Medicine: Result - Labs CBC & Chem 7: 12/14/16 01:22 12/14/16 10:55 Labs: Short CBC 12/14/16 Range/Units 01:22 WBC 11.1 (4.3-11.1) K/mcL Hgb 9.6 L D (11.5-15.4) g/dL Hct 29.3 L (35.3-44.9) % Plt Count 337 (140-400) K/mcL Neutrophils # 8.1 (1.6-8.9) K/mcL BMP 12/13/16 12/13/16 12/13/16 17:07 18:47 20:47 Sodium 137 D 142 147 H Potassium 6.9 H* 6.2 H 5.3 H Chloride 110 H D 116 H 117 H Carbon Dioxide < 5 L* < 5 L* 11 L BUN 17 15 14 Creatinine 1.61 H 1.52 H 1.35 H Glucose 752 H* 425 H 165 H Calcium 7.7 L 7.7 L 7.9 L 12/14/16 12/14/1612/14/17 01:22 07:54 10:55 Sodium 147 H 143 140 Potassium 3.2 L D 3.7 4.1 Chloride 116 H 114 H 111 H Carbon Dioxide 20 21 21 BUN 11 9 8 Creatinine 1.18 H 0.96 1.05 Glucose 151 H 64 L 103 H Calcium 7.5 L 7.6 L 7.6 L - VTE Documentation of Mechanical Device: Intermittent pneumatic compression device Consult Discharge Plan - Plan Referrals: Karishma Rosales, EXPORT SALES ASSISTANT [Advanced Practice Nurse] - 12/22/16 11:00 am
[2016-12-14] MEDS ORDERED: 0.9 % Sodium Chloride 1,000 ML IVC SCH (11:30)
[2016-12-14] MEDS: *HR* Promethazine 25 MG/ML VIAL IVP PRN (12:36)
--- NOTE | 2016-12-14 14:47 | Electrocardiograph Report ---
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
[2016-12-14] MEDS ORDERED: Dextrose Gel 15 GM PO PRN ×2 (14:50)
[2016-12-14] MEDS ORDERED: D5% in Water 1,000 ML IVC PRN (14:50)
[2016-12-14] MEDS ORDERED: *HR* Dextrose 50 % in Water (Syg) 50 ML SYRINGE IVP PRN (14:50)
[2016-12-14] MEDS ORDERED: D5% in 0.9% NACL 1,000 ML IVC SCH (15:00)
[2016-12-14] MEDS ORDERED: Insulin LISPRO 300 UNITS/3 ML VIAL SQ SCH (21:00)
[2016-12-15] MEDS: Insulin LISPRO 300 UNITS/3 ML VIAL SQ SCH ×6 (00:22→21:14)
[2016-12-15] MEDS: *HR* Morphine 2 MG/ML SYRINGE IVP PRN ×3 (04:22→13:28)
[2016-12-15 06:20] LABS: Basophils % 0.8 %; Eosinophils # 0.1 K/mcL (0.0-0.6); Hematocrit 30.2 % (35.3-44.9); Hemoglobin 9.8 g/dL (11.5-15.4); Immature Granulocytes % 0.4 % (0-4); Lymphocytes # 1.9 K/mcL (0.6-4.6); Lymphocytes % 36.3 %; Mean Corpuscular HGB Conc 32.5 g/dL (31.6-35.5); Mean Corpuscular Hemoglobin 30.4 pg (28.0-33.3); Mean Corpuscular Volume 93.8 fL (83.0-100.0); Mean Platelet Volume 9.4 fL (9.4-12.4); Monocytes # 0.4 K/mcL (0.0-1.3); Monocytes % 7.3 %; Neutrophils # 2.7 K/mcL (1.6-8.9); Platelet Count 214 K/mcL (140-400); Red Blood Count 3.22 M/mcL (3.82-4.97); Red Cell Distribution Width 13.7 % (11.5-14.5); Segmented Neutrophils % 53.2 %
[2016-12-15] MEDS: *HR* Heparin 5,000 UNIT/ML VIAL SQ SCH ×3 (06:21→21:25)
[2016-12-15 06:39] LABS: BUN/Creatinine Ratio 6 (6-26); Calcium 7.9 mg/dL (8.6-10.8); Carbon Dioxide 22 mEq/L (19-29); Chloride 108 mEq/L (98-109); Glucose 216 mg/dL (70-99); Magnesium 1.8 mg/dL (1.6-2.6); Osmolality,Calculated 292 (280-300); Phosphorous 2.4 mg/dL (2.3-4.7); Potassium 4.3 mEq/L (3.5-4.5); Sodium 139 mEq/L (136-145); eGFR For African Americans > 60 (> 60); eGFR For Non-African Americans > 60 (> 60)
[2016-12-15 06:42] LABS: Blood Urea Nitrogen 5 mg/dL (7-20)
[2016-12-15] MEDS: *HR* Promethazine 25 MG/ML VIAL IVP PRN ×2 (11:10→21:26)
[2016-12-15] MEDS ORDERED: Insulin DETEMIR 100 UNIT/ML X5UNITS SQ ONE (12:11)
--- NOTE | 2016-12-15 12:14 | Internal Med Progress Note ---
Date of Encounter: 12/15/16 Time of Encounter: 12:12 - Assessment and plan (1) DKA (diabetic ketoacidoses) Current Visit: Yes Status: Resolved Assessment and plan: Patient is well known to our service with multiple previous admissions with similar complaints. DKA resolved. But Patient is noted to have labile blood sugars. She was noted to have hypoglycemic episodes yesterday and was started on D5 fluids and blood sugars increased up to 400s overnight. We will hold IV fluids at this time. Continue Accu-Chek blood glucose monitoring, avoiding sliding scale insulin as much as possible to avoid hypoglycemic events. We will give 1 dose of basal insulin-10 units of Levemir. Continues to have poor oral intake. Continue to monitor and replace electrolytes. Qualifiers: Diabetes mellitus type: type 1 Diabetes mellitus complication detail: without coma Qualified Code(s): E10.10 - Type 1 diabetes mellitus with ketoacidosis without coma (2) Hyperkalemia Current Visit: Yes Status: Resolved (3) PAOLA (acute kidney injury) Current Visit: Yes Status: Resolved (4) Cirrhosis Current Visit: Yes Status: Chronic Qualifiers: Hepatic cirrhosis type: unspecified hepatic cirrhosis Ascites presence: without ascites Qualified Code(s): K74.60 - Unspecified cirrhosis of liver (5) DURAN (nonalcoholic steatohepatitis) Current Visit: Yes Status: Chronic (6) Abdominal pain Current Visit: Yes Status: Chronic Assessment and plan: Patient is noted to have chronic bilateral lower quadrant abdominal pain. Pain control with when necessary oral Percocet and IV morphine. Multiple imaging studies in the past have not revealed any acute abnormality. Qualifiers: Abdominal location: left lower quadrant Qualified Code(s): R10.32 - Left lower quadrant pain (7) Gastroparesis diabeticorum Current Visit: Yes Status: Chronic (8) HLD (hyperlipidemia) Current Visit: Yes Status: Chronic Qualifiers: Hyperlipidemia type: mixed hyperlipidemia Qualified Code(s): E78.2 - Mixed hyperlipidemia (9) Diabetes mellitus type 1 Current Visit: Yes Status: Chronic Assessment and plan: Requires close outpatient endocrinology follow-up. Hemoglobin A1c noted to be 10.6%. Qualifiers: Diabetes mellitus complication status: with ketoacidosis Diabetes mellitus complication detail: without coma Qualified Code(s): E10.10 - Type 1 diabetes mellitus with ketoacidosis without coma - Subjective Interval history: Feels better; continues to have poor appetite and fluctuating blood sugars; improved nausea, weakness; - Constitutional Vitals: Temp Pulse Resp BP Pulse Ox 98.2 F 102 18 124/90 97 12/15/16 11:41 12/15/16 11:41 12/15/16 11:41 12/15/16 11:41 12/15/16 11:41 General appearance: Present: A&O X 3, underweight, answers questions appropriately - Respiratory Respiratory exam: Present: CTAB. Absent: accessory muscle use, rales, rhonchi, wheezes - Cardiovascular Cardiovascular exam: Present: RRR, +S1, +S2, tachycardia. Absent: diastolic murmur, gallop, rubs, systolic murmur - GI/Abdominal GI/Abdominal exam: Present: normal bowel sounds, soft, no peritoneal signs. Absent: distended, tenderness Internal Medicine: Result - Labs CBC & Chem 7: 12/15/16 05:54 12/15/16 05:54 Labs: Short CBC 12/15/16 Range/Units 05:54 WBC 5.1 D (4.3-11.1) K/mcL Hgb 9.8 L (11.5-15.4) g/dL Hct 30.2 L (35.3-44.9) % Plt Count 214 (140-400) K/mcL Neutrophils # 2.7 (1.6-8.9) K/mcL BMP 12/15/16 05:54 Sodium 139 Potassium 4.3 Chloride 108 Carbon Dioxide 22 BUN 5 L Creatinine 0.85 Glucose 216 H Calcium 7.9 L - VTE Documentation of Mechanical Device: Intermittent pneumatic compression device Consult Discharge Plan - Plan Referrals: Karishma Rosales VOLLEYBALL ASSEMBLER [Advanced Practice Nurse] - 12/22/16 11:00 am
[2016-12-15] MEDS: *HR* OxyCODONE/APAP 5/325 TABLET PO PRN (16:13)
[2016-12-15] MEDS ORDERED: Ibuprofen 200 MG TABLET PO PRN (18:01)
[2016-12-15] MEDS ORDERED: Benzocaine 20% 9 GM GEL..GRAM. TP PRN (18:01)
[2016-12-15] MEDS: *HR* LORazepam 0.5 MG TABLET PO SCH (22:22)
[2016-12-16] MEDS: *HR* OxyCODONE/APAP 5/325 TABLET PO PRN ×4 (02:47→23:03)
[2016-12-16] MEDS: *HR* Heparin 5,000 UNIT/ML VIAL SQ SCH ×3 (05:46→21:42)
[2016-12-16] MEDS: *HR* LORazepam 0.5 MG TABLET PO SCH ×2 (08:30→20:46)
[2016-12-16] MEDS: Ondansetron 4 MG/2 ML VIAL IVP PRN ×2 (08:31→19:27)
[2016-12-16] MEDS: Insulin LISPRO 300 UNITS/3 ML VIAL SQ SCH ×3 (08:58→16:15)
--- NOTE | 2016-12-16 12:28 | Discharge Summary ---
Date of Encounter: 12/16/16 Time of Encounter: 12:21 - Discharge Diagnosis (1) DKA (diabetic ketoacidoses) Priority: Primary Status: Resolved Qualifiers: Diabetes mellitus type: type 1 Diabetes mellitus complication detail: without coma Qualified Code(s): E10.10 - Type 1 diabetes mellitus with ketoacidosis without coma (2) Hyperkalemia Priority: Primary Status: Resolved (3) PAOLA (acute kidney injury) Priority: Primary Status: Resolved (4) Cirrhosis Priority: Secondary Status: Chronic Qualifiers: Hepatic cirrhosis type: unspecified hepatic cirrhosis Ascites presence: without ascites Qualified Code(s): K74.60 - Unspecified cirrhosis of liver (5) DURAN (nonalcoholic steatohepatitis) Priority: Secondary Status: Chronic (6) Abdominal pain Priority: Secondary Status: Chronic Qualifiers: Abdominal location: left lower quadrant Qualified Code(s): R10.32 - Left lower quadrant pain (7) Gastroparesis diabeticorum Priority: Secondary Status: Chronic (8) HLD (hyperlipidemia) Priority: Secondary Status: Chronic Qualifiers: Hyperlipidemia type: mixed hyperlipidemia Qualified Code(s): E78.2 - Mixed hyperlipidemia (9) Diabetes mellitus type 1 Priority: Secondary Status: Chronic Qualifiers: Diabetes mellitus complication status: with ketoacidosis Diabetes mellitus complication detail: without coma Qualified Code(s): E10.10 - Type 1 diabetes mellitus with ketoacidosis without coma - Discharge Medications Prescriptions: Insulin ASPART [NovoLOG] 0 unit SQ TIDWM 30 Days Metoclopramide [Reglan] 10 mg PO BID #30 tablet Metoprolol [Lopressor] 25 mg PO BID #60 tablet Home Medications: Insulin ASPART [NovoLOG] 0 unit SQ TIDWM 30 Days 12/16/16 [Rx] Metoclopramide [Reglan] 10 mg PO BID #30 tablet 12/16/16 [Rx] Insulin Glargine,Hum.rec.anlog [Lantus Solostar] 5 unit SQ HS 30 Days 12/18/16 [ Rx] LORazepam [Ativan] 1 mg PO BID #6 12/18/16 [Rx] Metoprolol [Lopressor] 25 mg PO BID #60 tablet 12/18/16 [Rx] Oxycodone HCl/Acetaminophen [Percocet 5-325 mg Tablet] 1 tab PO Q6H PRN #10 [Rx] Allergies/Adverse Reactions: 3 Allergy/AdvReac Type Severity Reaction Status Date / Time hydrocodone Allergy Hives Verified 12/13/16 12:28 Date of admission: 12/13/16 16:20 Primary care physician: Zehra Jamison Discharging clinician: Louise Pierce Anticipated date of discharge: 12/16/16 - Patient Status Disposition: Home, Self-Care Condition: Fair Functional capacity at discharge: uses cane/walker Overall status at discharge: patient is progressing back to baseline - Discharge Instructions Follow Up With: Karishma Rosales, PATIENT ACCESS COORDINATOR [Advanced Practice Nurse] - 12/22/16 11:00 am Additional Instructions: F/up with Endocrinology in as early as possible - Diet and Activity Activity: resume usual activities as tolerated Diet: diabetic diet, low salt diet Hospital course: Ms. Sierra is a 31 year old female with h/o- Type 1 DM, well-knonw to our service with multiple frequent hospitalizations was admitted with generalized weakness, nausea and vomiting. SHe was noted to be in severe DKA with significant metabolic acidosis and was started on IV insulin infusion drip along with aggressive IV hydration and bicarbonate drip briefly. Her clinical condition gradually improved, anion gap closed and metabolic acidosis improved. She is noted to have poor appetite at baseline and her blood sugars are noted to be very labile. Her home insulin dose has been reduced and blood sugars are currently improved and she is medically stable for discharge. She does, however require close outpatient endocrinology follow-up and she claims she was never able to make it to her appointment as she is frequently hospitalized. She may be a candidate for insulin pump. She is also noted to have slightly elevated blood pressure along with mild tachycardia and she is being started on metoprolol. She is encouraged to follow up with her primary care provider. - Time Spent with Patient Total time spent providing and/or coordinating discharge services: Greater than 30 minutes (45 min) - Constitutional Vitals: Temp Pulse Resp BP Pulse Ox 98.1 F 98 16 158/104 98 12/16/16 10:40 12/16/16 10:40 12/16/16 10:40 12/16/16 10:40 12/16/16 10:40 General appearance: Present: cachectic, A&O X 3 (chronically ill appearing), underweight, answers questions appropriately - Cardiovascular Cardiovascular exam: Present: RRR, +S1, +S2, tachycardia. Absent: diastolic murmur, gallop, rubs, systolic murmur - VTE Documentation of Mechanical Device: Intermittent pneumatic compression device
[2016-12-16] MEDS: Insulin DETEMIR 100 UNIT/ML X5UNITS SQ SCH (20:50)
[2016-12-16] MEDS ORDERED: Insulin LISPRO 300 UNITS/3 ML VIAL SQ SCH (21:00)
[2016-12-17] MEDS ORDERED: Insulin LISPRO 300 UNITS/3 ML VIAL SQ ONE ×3 (01:04→21:13)
[2016-12-17] MEDS ORDERED: Insulin DETEMIR 100 UNIT/ML X5UNITS SQ ONE (01:06)
[2016-12-17] MEDS: Ondansetron 4 MG/2 ML VIAL IVP PRN ×3 (01:33→16:19)
[2016-12-17] MEDS: *HR* Heparin 5,000 UNIT/ML VIAL SQ SCH ×3 (06:05→22:08)
[2016-12-17] MEDS: *HR* LORazepam 0.5 MG TABLET PO SCH ×2 (08:31→20:39)
[2016-12-17] MEDS: *HR* OxyCODONE/APAP 5/325 TABLET PO PRN ×2 (08:33→16:19)
[2016-12-17] MEDS: Insulin LISPRO 300 UNITS/3 ML VIAL SQ SCH ×3 (08:43→16:20)
--- NOTE | 2016-12-17 15:57 | Internal Med Progress Note ---
Date of Encounter: 12/17/16 Time of Encounter: 15:56 - Assessment and plan (1) DKA (diabetic ketoacidoses) Status: Resolved Qualifiers: Diabetes mellitus type: type 1 Diabetes mellitus complication detail: without coma Qualified Code(s): E10.10 - Type 1 diabetes mellitus with ketoacidosis without coma (2) Hyperkalemia Status: Resolved (3) PAOLA (acute kidney injury) Status: Resolved (4) Cirrhosis Status: Chronic Qualifiers: Hepatic cirrhosis type: unspecified hepatic cirrhosis Ascites presence: without ascites Qualified Code(s): K74.60 - Unspecified cirrhosis of liver (5) DURAN (nonalcoholic steatohepatitis) Status: Chronic (6) Abdominal pain Status: Chronic Assessment and plan: Continue oral Percocet for pain control. Qualifiers: Abdominal location: left lower quadrant Qualified Code(s): R10.32 - Left lower quadrant pain (7) Gastroparesis diabeticorum Status: Chronic (8) HLD (hyperlipidemia) Status: Chronic Qualifiers: Hyperlipidemia type: mixed hyperlipidemia Qualified Code(s): E78.2 - Mixed hyperlipidemia (9) Diabetes mellitus type 1 Status: Chronic Assessment and plan: Patient has difficult to control labile blood sugars. Patient's low-dose basal insulin has been held last night, then she was noted to have hyperglycemia in 400s around midnight, at which time she received her basal and short-acting insulin, blood sugars appropriate at this time. And she started insulin with very low-dose sliding scale and minimal basal insulin. Diabetic diet as tolerated, noted to have poor appetite. Requires close outpatient endocrinology follow-up. Hemoglobin A1c noted to be 10.6%. Qualifiers: Diabetes mellitus complication status: with ketoacidosis Diabetes mellitus complication detail: without coma Qualified Code(s): E10.10 - Type 1 diabetes mellitus with ketoacidosis without coma (10) Essential hypertension Status: Chronic Assessment and plan: Noted to have slightly elevated blood pressure along with mild tachycardia. We will start low-dose metoprolol, to be uptitrated as tolerated. Outpatient follow-up. - Subjective Interval history: Blood sugars noted to be better controlled today but had hyperglycemia last night upto 400s; reports she does not feel like going home today as she does not feel too good. - Constitutional Vitals: Temp Pulse Resp BP Pulse Ox 97.3 F L 90 17 131/81 98 12/17/16 11:46 12/17/16 11:46 12/17/16 11:46 12/17/16 11:46 12/17/16 11:46 General appearance: Present: cachectic, A&O X 3 (chronically ill appearing), underweight, answers questions appropriately - Respiratory Respiratory exam: Present: CTAB. Absent: accessory muscle use, rales, rhonchi, wheezes - Cardiovascular Cardiovascular exam: Present: RRR, +S1, +S2. Absent: diastolic murmur, gallop, rubs, systolic murmur - GI/Abdominal GI/Abdominal exam: Present: normal bowel sounds, soft, no peritoneal signs. Absent: distended, tenderness Internal Medicine: Result - Labs CBC & Chem 7: 12/15/16 05:54 12/15/16 05:54 - VTE Documentation of Mechanical Device: Intermittent pneumatic compression device Consult Discharge Plan - Plan Additional Instructions: F/up with Endocrinology in as early as possible Referrals: Karishma Rosales, LARD MIXER [Advanced Practice Nurse] - 12/22/16 11:00 am Prescriptions: Insulin ASPART [NovoLOG] 0 unit SQ TIDWM 30 Days Metoclopramide [Reglan] 10 mg PO BID #30 tablet Metoprolol [Lopressor] 25 mg PO BID #60 tablet
[2016-12-17] MEDS: Insulin DETEMIR 100 UNIT/ML X5UNITS SQ SCH (20:39)
[2016-12-18] MEDS: *HR* OxyCODONE/APAP 5/325 TABLET PO PRN ×2 (01:35→07:43)
[2016-12-18] MEDS: *HR* Promethazine 25 MG/ML VIAL IVP PRN ×2 (01:35→07:43)
[2016-12-18] MEDS: *HR* Heparin 5,000 UNIT/ML VIAL SQ SCH (05:36)
[2016-12-18 07:01] VITALS: BP 134/87
[2016-12-18] MEDS: *HR* LORazepam 0.5 MG TABLET PO SCH (07:43)
[2016-12-18] MEDS: Insulin LISPRO 300 UNITS/3 ML VIAL SQ SCH (07:44)
--- NOTE | 2016-12-18 08:47 | Internal Med Progress Note ---
Date of Encounter: 12/18/16 Time of Encounter: 08:42 - Assessment and plan (1) DKA (diabetic ketoacidoses) Status: Resolved Qualifiers: Diabetes mellitus type: type 1 Diabetes mellitus complication detail: without coma Qualified Code(s): E10.10 - Type 1 diabetes mellitus with ketoacidosis without coma (2) Hyperkalemia Status: Resolved (3) PAOLA (acute kidney injury) Status: Resolved (4) Cirrhosis Status: Chronic Qualifiers: Hepatic cirrhosis type: unspecified hepatic cirrhosis Ascites presence: without ascites Qualified Code(s): K74.60 - Unspecified cirrhosis of liver (5) DURAN (nonalcoholic steatohepatitis) Status: Chronic (6) Abdominal pain Status: Chronic Qualifiers: Abdominal location: left lower quadrant Qualified Code(s): R10.32 - Left lower quadrant pain (7) Gastroparesis diabeticorum Status: Chronic (8) HLD (hyperlipidemia) Status: Chronic Qualifiers: Hyperlipidemia type: mixed hyperlipidemia Qualified Code(s): E78.2 - Mixed hyperlipidemia (9) Diabetes mellitus type 1 Status: Chronic Assessment and plan: Patient has difficult to control labile blood sugars. Blood sugar control has been appropriate for the last 24 hours with very low-dose sliding scale and minimal basal insulin. She is currently stable for discharge. Diabetic diet as tolerated, noted to have poor appetite. Requires close outpatient endocrinology follow-up. Hemoglobin A1c noted to be 10.6%. Qualifiers: Diabetes mellitus complication status: with ketoacidosis Diabetes mellitus complication detail: without coma Qualified Code(s): E10.10 - Type 1 diabetes mellitus with ketoacidosis without coma (10) Essential hypertension Status: Chronic Assessment and plan: Noted to have slightly elevated blood pressure along with mild tachycardia. We will start low-dose metoprolol, to be uptitrated as tolerated. Outpatient follow-up. - Subjective Interval history: Blood sugars noted to be better controlled since yesterday; reports feeling weak ; wants Vocal Music Teacher to see her in the hospital due to high HR which has been ongoing for several months; agreeable to discharge today after explaining that tachycardia can be managed outpatient; - Constitutional Vitals: Temp Pulse Resp BP Pulse Ox 98.0 F 87 19 134/87 98 12/18/16 07:00 12/18/16 07:00 12/18/16 07:00 12/18/16 07:00 12/18/16 07:00 General appearance: Present: cachectic, A&O X 3 (chronically ill appearing), underweight, answers questions appropriately - Respiratory Respiratory exam: Present: CTAB. Absent: accessory muscle use, rales, rhonchi, wheezes - Cardiovascular Cardiovascular exam: Present: RRR, +S1, +S2, tachycardia. Absent: diastolic murmur, gallop, rubs, systolic murmur Internal Medicine: Result - Labs CBC & Chem 7: 12/15/16 05:54 12/15/16 05:54 - VTE Documentation of Mechanical Device: Intermittent pneumatic compression device Consult Discharge Plan - Plan Additional Instructions: F/up with Endocrinology in as early as possible Referrals: Karishma Rosales, MEDICAL LABORATORY TECHNOLOGIST [Advanced Practice Nurse] - 12/22/16 11:00 am Prescriptions: Insulin ASPART [NovoLOG] 0 unit SQ TIDWM 30 Days Metoclopramide [Reglan] 10 mg PO BID #30 tablet Metoprolol [Lopressor] 25 mg PO BID #60 tablet
== END 2016-12-18 11:05 | disposition home or self-care (01) | DRG 420 ==
LOC: 2NNU 12:23 → EMEROO 12:23 → 2NNU 18:35 → 2ANU 12-15 17:07
PROVIDERS: ADMIT Internal Medicine; ATTEND Internal Medicine

== ENCOUNTER 2016-12-25 13:39 | Inpatient (IN) ==
--- NOTE | 2016-12-25 13:42 | Emergency Department Note ---
Disposition Clinical Impression: PAOLA (acute kidney injury), Opiate use, Cocaine abuse, Nausea, Elevated blood ketone body level, Hyperglycemia UTI (urinary tract infection) Qualifiers: Urinary tract infection type: acute cystitis Hematuria presence: without hematuria Qualified Code(s): N30.00 - Acute cystitis without hematuria Abdominal pain Qualifiers: Abdominal location: unspecified location Qualified Code(s): R10.9 - Unspecified abdominal pain Disposition: Admitted As Inpatient Condition: Fair Referrals: NONE,PCP [Non-Partnered Physician] - General Adult HPI - General Chief complaint: ED General Medical Stated complaint: DKA Time Seen by Provider: 12/25/16 13:41 Source: patient Mode of arrival: ambulatory Limitations: no limitations Nursing Notes Reviewed: Yes Vital Signs Reviewed: Yes - History of Present Illness HPI Narrative: Patient is a 31-year-old female with past medical history of type 1 diabetes, hypertension, cirrhosis. She takes Lantus 35 units at night, 10 units with each meal. Denies any missed insulin doses. She was just discharged from the hospital on , 4 days ago, due to DKA. On that admission, the patient had a severe acidosis. She says that since she was discharged home on , she has felt generally weak. Over the past 2-3 days, she has been short of breath as well, states that she becomes very labored in breathing with just short distances of walking. She also notes centered chest pain that is constant aching, no radiation, no sweating, not worsened with exertion. She admits to multiple episodes of nausea and vomiting. She says "I feel like I do when I am in DKA. "She said that she also tastes ketones. She also admits to dysuria and right-sided flank pain that has been occurring over the past few days as well. - Related Data Previous Rx's Medication Instructions Recorded Insulin ASPART [NovoLOG] 0 unit SQ TIDWM 30 Days 12/16/16 Metoclopramide [Reglan] 10 mg PO BID #30 tablet 12/16/16 Insulin Glargine,Hum.rec.anlog 5 unit SQ HS 30 Days 12/18/16 [Lantus Solostar] LORazepam [Ativan] 1 mg PO BID #6 12/18/16 Metoprolol [Lopressor] 25 mg PO BID #60 tablet 12/18/16 Oxycodone HCl/Acetaminophen 1 tab PO Q6H PRN #10 12/18/16 [Percocet 5-325 mg Tablet] Allergies Allergy/AdvReac Type Severity Reaction Status Date / Time hydrocodone Allergy Hives Verified 12/13/16 12:28 All systems ED: reviewed and negative except as stated. Constitutional: Denies: fever Cardiovascular: Reports: chest pain, dyspnea on exertion Respiratory: Reports: cough, dyspnea Gastrointestinal: Reports: abdominal pain, nausea, vomiting. Denies: constipation, hematemesis, melena, hematochezia Genitourinary: Reports: dysuria. Denies: discharge Neurological: Reports: weakness (Generalized). Denies: headache Past Medical History - Past Medical History Attestation: Yes The following information was validated with the patient. 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 ) - Head Head exam: atraumatic, normocephalic, normal inspection - Eye Eye exam: Present: normal appearance, PERRL, EOMI - ENT ENT exam: normal oropharynx, mucous membranes dry - Neck Neck exam: Present: normal inspection, full ROM, trachea midline - Chest Chest inspection: Present: normal inspection, symmetric chest wall rise - Respiratory Respiratory exam: Present: normal lung sounds bilaterally. Absent: respiratory distress, wheezes - Cardiovascular Cardiovascular exam: Present: normal rhythm, tachycardia, normal heart sounds - Abdominal Exam Abdominal exam: Present: soft, tenderness (Mild tenderness in the epigastric region and suprapubic region). Absent: distention, guarding, rebound, rigidity - Extremities Exam Extremities exam: Present: normal inspection, full ROM. Absent: tenderness, pedal edema - Neurological Exam Neurological exam: Present: alert, oriented X3, CN II-XII intact. Absent: motor sensory deficit - Psychiatric Psychiatric exam: Present: normal affect, normal mood - Skin Skin exam: Present: warm, dry, intact, normal color Course Course Narrative: Patient tachycardic on exam. 100% on room air. Blood pressure normal 120s over 80s. Respirations 16. Physical exam shows a patient who appears very fatigued. She has epigastric tenderness and right CVA tenderness, suprapubic tenderness. She also has complaints of shortness of breath worse with exertion , center chest pain and dysuria. We will obtain DKA workup. We will also obtain EKG, chest x-ray, troponin, urinalysis, basic labs. EKG shows sinus tachycardia with new T-wave inversions in 1, 2, new ST depression in 2, 3, aVF. 18:04 labs show sign of UTI, patient was given Rocephin 2 g. Labs also show a K I, patient is given 2 L of fluid. Urine drug screen is positive for opiates and cocaine. She also has a chronically elevated alkaline phosphatase. Chest x -ray negative. CT of abdomen and pelvis was negative for any acute intra- abdominal process. Patient is still having nausea, abdominal pain. She does have anion gap, elevated ketones. Not technically DKA. Blood glucose was in the 100s. Chest X-Ray 12/25/16 13:46 IMPRESSION: Normal. D/ / Hakeem Patel MD / Hakeem Patel MD Interpreting Provider: Hakeem Patel MD Abdomen/Pelvis CT 12/25/16 16:33 IMPRESSION: 1. No acute intra-abdominal process identified. D/ / Reinier Rizzo MD / Reinier Rizzo MD Interpreting Provider: Reinier Rizzo MD Vital Signs Temperature 97.8 F 12/25/16 13:43 Pulse Rate 117 12/25/16 13:43 Respiratory Rate 16 12/25/16 13:43 Blood Pressure 120/82 12/25/16 13:43 O2 Sat by Pulse Oximetry 100 12/25/16 13:43 Temperature 97.8 F 12/25/16 13:43 Pulse Rate 112 12/25/16 18:33 Respiratory Rate 18 12/25/16 18:33 Blood Pressure 117/72 12/25/16 18:33 O2 Sat by Pulse Oximetry 100 12/25/16 18:33 Oxygen Delivery Oxygen Delivery Room Air Medical Decision Making - MDM Narrative Medical decision making narrative: labs show sign of UTI, patient was given Rocephin 2 g. Labs also show a K I, patient is given 2 L of fluid. Urine drug screen is positive for opiates and cocaine. She also has a chronically elevated alkaline phosphatase. Chest x- ray negative. CT of abdomen and pelvis was negative for any acute intra- abdominal process. Patient is still having nausea, abdominal pain. She does have anion gap, elevated ketones. Not technically DKA. Blood glucose was in the 100s. - Medical Records Medical records reviewed: Yes I reviewed the patient's medical records. - Lab Data Lab results reviewed: Yes I reviewed the patient's lab results. Result diagrams: 12/25/16 14:09 12/25/16 14:09 Lab Results 12/25/16 12/25/16 12/25/16 Range/Units 14:09 14:09 14:09 WBC 9.0 (4.3-11.1) K/mcL RBC 4.41 (3.82-4.97) M/mcL Hgb 13.3 (11.5-15.4) g/dL Hct 40.6 (35.3-44.9) % MCV 92.1 (83.0-100.0) fL MCH 30.2 (28.0-33.3) pg MCHC 32.8 (31.6-35.5) g/dL RDW 13.7 (11.5-14.5) % Plt Count 534 H (140-400) K/mcL MPV 9.3 L (9.4-12.4) fL Immature Gran % 1.0 (0-4) % Seg Neutrophils % 68.6 % Lymphocytes % 19.1 % Monocytes % 8.3 % Eosinophils % 1.9 % Basophils % 1.1 % Neutrophils # 6.1 (1.6-8.9) K/mcL Lymphocytes # 1.7 (0.6-4.6) K/mcL Monocytes # 0.7 (0.0-1.3) K/mcL Eosinophils # 0.2 (0.0-0.6) K/mcL Basophils # 0.1 (0.0-0.2) K/mcL Immature Plt Fraction 1.7 (1.1-6.1) % VBG pH (7.32-7.42) pH Units VBG pCO2 (41-51) mmHg VBG pO2 (25-40) mmHg VBG HCO3 (21-27) mEq/L Sodium 137 (136-145) mEq/L Potassium 4.1 (3.5-4.5) mEq/L Chloride 102 (98-109) mEq/L Carbon Dioxide 15 L (19-29) mEq/L BUN 15 (7-20) mg/dL Creatinine 1.30 H (0.57-1.11) mg/dL Est GFR ( Amer) 58 L (> 60) Est GFR (Non-Af Amer) 47 L (> 60) BUN/Creatinine Ratio 12 (6-26) Glucose 198 H (70-99) mg/dL Calculated Osmolality 290 (280-300) Lactic Acid 1.1 (0.5-2.2) mmol/L Calcium 10.0 (8.6-10.8) mg/dL Phosphorus 2.8 (2.3-4.7) mg/dL Magnesium 1.9 (1.6-2.6) mg/dL Total Bilirubin 0.5 (0.2-1.2) mg/dL AST 21 (5-34) Units/L ALT 41 (0-55) Units/L Alkaline Phosphatase 372 H (38-126) Units/L Troponin I (0-0.03) ng/mL Serum Total Protein 7.4 (6.0-8.3) g/dL Albumin 3.5 (3.5-5.0) g/dL Globulin 3.9 H (2.4-3.5) g/dL Albumin/Globulin Ratio 0.9 L (1.1-2.2) Beta-Hydroxybutyric Acd > 2.00 H (0.02-0.27) mmol/L Serum , Qual (Negative) Urine Color (Yellow) Urine Clarity (Clear) Urine pH (5.0-8.0) pH Units Ur Specific Rawlins (1.010-1.025) Urine Protein (Neg-Trace) mg/dL Urine Glucose (UA) (Normal) mg/dL Urine Ketones (Negative) mg/dL Urine Blood (Negative) Urine Nitrite (Negative) Urine Bilirubin (Negative) Urine Urobilinogen (Normal) mg/dL Ur Leukocyte Esterase (Negative) Urine Microscopic RBC (0-3) per hpf Urine Microscopic WBC (0-3) per hpf Ur Squamous Epith Cells (None-Few) per lpf Urine Bacteria (None-Few) per hpf Hyaline Casts (None-Few) per lpf Ur Culture Indicated? (NO) Salicylates < 5.0 L (15-30) mg/dL Urine Opiates Screen (Odarai=842) ng/mL Ur Barbiturates Screen (Nzmahf=027) ng/mL Ur Phencyclidine Scrn (Cutoff=25) ng/mL Ur Amphetamines Screen (Yrojgr=5914) ng/mL U Benzodiazepines Scrn (Tzwakx=959) ng/mL Urine Cocaine Screen (Cutoff= 300) ng/mL U Marijuana (THC) Screen (Cutoff = 50) ng/mL 12/25/16 12/25/16 12/25/16 Range/Units 14:09 14:09 15:06 WBC (4.3-11.1) K/mcL RBC (3.82-4.97) M/mcL Hgb (11.5-15.4) g/dL Hct (35.3-44.9) % MCV (83.0-100.0) fL MCH (28.0-33.3) pg MCHC (31.6-35.5) g/dL RDW (11.5-14.5) % Plt Count (140-400) K/mcL MPV (9.4-12.4) fL Immature Gran % (0-4) % Seg Neutrophils % % Lymphocytes % % Monocytes % % Eosinophils % % Basophils % % Neutrophils # (1.6-8.9) K/mcL Lymphocytes # (0.6-4.6) K/mcL Monocytes # (0.0-1.3) K/mcL Eosinophils # (0.0-0.6) K/mcL Basophils # (0.0-0.2) K/mcL Immature Plt Fraction (1.1-6.1) % VBG pH 7.37 (7.32-7.42) pH Units VBG pCO2 30 L (41-51) mmHg VBG pO2 52 H (25-40) mmHg VBG HCO3 17.3 L (21-27) mEq/L Sodium (136-145) mEq/L Potassium (3.5-4.5) mEq/L Chloride (98-109) mEq/L Carbon Dioxide (19-29) mEq/L BUN (7-20) mg/dL Creatinine (0.57-1.11) mg/dL Est GFR ( Amer) (> 60) Est GFR (Non-Af Amer) (> 60) BUN/Creatinine Ratio (6-26) Glucose (70-99) mg/dL Calculated Osmolality (280-300) Lactic Acid (0.5-2.2) mmol/L Calcium (8.6-10.8) mg/dL Phosphorus (2.3-4.7) mg/dL Magnesium (1.6-2.6) mg/dL Total Bilirubin (0.2-1.2) mg/dL AST (5-34) Units/L ALT (0-55) Units/L Alkaline Phosphatase (38-126) Units/L Troponin I 0.02 (0-0.03) ng/mL Serum Total Protein (6.0-8.3) g/dL Albumin (3.5-5.0) g/dL Globulin (2.4-3.5) g/dL Albumin/Globulin Ratio (1.1-2.2) Beta-Hydroxybutyric Acd (0.02-0.27) mmol/L Serum , Qual (Negative) Urine Color Carmen A (Yellow) Urine Clarity Clear (Clear) Urine pH 5.5 (5.0-8.0) pH Units Ur Specific [place] > 1.030 H (1.010-1.025) Urine Protein 100 H (Neg-Trace) mg/dL Urine Glucose (UA) >=1000 H (Normal) mg/dL Urine Ketones >=160 H (Negative) mg/dL Urine Blood Negative (Negative) Urine Nitrite Positive A (Negative) Urine Bilirubin Large H (Negative) Urine Urobilinogen Normal (Normal) mg/dL Ur Leukocyte Esterase Small H (Negative) Urine Microscopic RBC 3-5 H (0-3) per hpf Urine Microscopic WBC 5-15 H (0-3) per hpf Ur Squamous Epith Cells Many H (None-Few) per lpf Urine Bacteria Few (None-Few) per hpf Hyaline Casts Moderate H (None-Few) per lpf Ur Culture Indicated? YES A (NO) Salicylates (15-30) mg/dL Urine Opiates Screen (Ldpgta=024) ng/mL Ur Barbiturates Screen (Yxauby=063) ng/mL Ur Phencyclidine Scrn (Cutoff=25) ng/mL Ur Amphetamines Screen (Ddrmks=7766) ng/mL U Benzodiazepines Scrn (Ignwjv=981) ng/mL Urine Cocaine Screen (Cutoff= 300) ng/mL U Marijuana (THC) Screen (Cutoff = 50) ng/mL 12/25/16 12/25/16 Range/Units 15:06 16:30 WBC (4.3-11.1) K/mcL RBC (3.82-4.97) M/mcL Hgb (11.5-15.4) g/dL Hct (35.3-44.9) % MCV (83.0-100.0) fL MCH (28.0-33.3) pg MCHC (31.6-35.5) g/dL RDW (11.5-14.5) % Plt Count (140-400) K/mcL MPV (9.4-12.4) fL Immature Gran % (0-4) % Seg Neutrophils % % Lymphocytes % % Monocytes % % Eosinophils % % Basophils % % Neutrophils # (1.6-8.9) K/mcL Lymphocytes # (0.6-4.6) K/mcL Monocytes # (0.0-1.3) K/mcL Eosinophils # (0.0-0.6) K/mcL Basophils # (0.0-0.2) K/mcL Immature Plt Fraction (1.1-6.1) % VBG pH (7.32-7.42) pH Units VBG pCO2 (41-51) mmHg VBG pO2 (25-40) mmHg VBG HCO3 (21-27) mEq/L Sodium (136-145) mEq/L Potassium (3.5-4.5) mEq/L Chloride (98-109) mEq/L Carbon Dioxide (19-29) mEq/L BUN (7-20) mg/dL Creatinine (0.57-1.11) mg/dL Est GFR ( Amer) (> 60) Est GFR (Non-Af Amer) (> 60) BUN/Creatinine Ratio (6-26) Glucose (70-99) mg/dL Calculated Osmolality (280-300) Lactic Acid (0.5-2.2) mmol/L Calcium (8.6-10.8) mg/dL Phosphorus (2.3-4.7) mg/dL Magnesium (1.6-2.6) mg/dL Total Bilirubin (0.2-1.2) mg/dL AST (5-34) Units/L ALT (0-55) Units/L Alkaline Phosphatase (38-126) Units/L Troponin I (0-0.03) ng/mL Serum Total Protein (6.0-8.3) g/dL Albumin (3.5-5.0) g/dL Globulin (2.4-3.5) g/dL Albumin/Globulin Ratio (1.1-2.2) Beta-Hydroxybutyric Acd (0.02-0.27) mmol/L Serum , Qual Negative (Negative) Urine Color (Yellow) Urine Clarity (Clear) Urine pH (5.0-8.0) pH Units Ur Specific [place] (1.010-1.025) Urine Protein (Neg-Trace) mg/dL Urine Glucose (UA) (Normal) mg/dL Urine Ketones (Negative) mg/dL Urine Blood (Negative) Urine Nitrite (Negative) Urine Bilirubin (Negative) Urine Urobilinogen (Normal) mg/dL Ur Leukocyte Esterase (Negative) Urine Microscopic RBC (0-3) per hpf Urine Microscopic WBC (0-3) per hpf Ur Squamous Epith Cells (None-Few) per lpf Urine Bacteria (None-Few) per hpf Hyaline Casts (None-Few) per lpf Ur Culture Indicated? (NO) Salicylates (15-30) mg/dL Urine Opiates Screen Positive H (Hmokjd=814) ng/mL Ur Barbiturates Screen Negative (Xbmtfq=524) ng/mL Ur Phencyclidine Scrn Negative (Cutoff=25) ng/mL Ur Amphetamines Screen Negative (Rkbtom=6213) ng/mL U Benzodiazepines Scrn Negative (Jlzhpl=728) ng/mL Urine Cocaine Screen Positive H (Cutoff= 300) ng/mL U Marijuana (THC) Screen Negative (Cutoff = 50) ng/mL - Radiology Data Radiology results reviewed: Yes I reviewed the patient's radiology results. Chest X-Ray 12/25/16 13:46 IMPRESSION: Normal. D/ / Hakeem Patel MD / Hakeem Patel MD Interpreting Provider: Hakeem Patel MD Abdomen/Pelvis CT 12/25/16 16:33 IMPRESSION: 1. No acute intra-abdominal process identified. D/ / Reinier Rizzo MD / Reinier Rizzo MD Interpreting Provider: Reinier Rizzo MD - EKG Data EKG #1 EKG attestation: Yes I reviewed and interpreted this EKG. EKG results narrative: 12/25/2016 at 13:45. Sinus tachycardia. Rate 120. ID 125. QRS 85. QTC 394. Normal sinus rhythm. There are T wave inversions in lead 1, lead 2, aVL. Also mild ST depression in lead 3, aVF. This is new from previous EKG S.B.A.R. - S.B.A.R. Situation: Demographics, MOA Background: Presenting Complaint, Relevant PMH, Meds, & Allergies Assessment: Vital Signs, Course and respsone to treatment, Exam Concerns, Patient/Family Expectation, Pertinant Lab Results, Outstanding Labs Recommendation: Barrier(s) to disposition, Recommendation based on pending studies, treatments, or consults S.B.A.R. Report Given to: Alie Kwon S.B.A.RLatia Repor Time: 18:40 Attestation Statement - Attestation Attestation: I, Arturo Mendoza DO, examined this patient [id number] and my medical decision-making was reviewed with Dr. Chris Rowe, Resident Physician. I agree with the documented findings, disposition and treatment plan as described except to the extent set forth below. Please see my progress notes for details. 31-year-old female recently discharged from the hospital presents for dehydration and generalized malaise and abdominal pain. Patient was just discharged from the hospital for diabetic ketoacidosis and dehydration that time. Denies any new medications denies any trauma denies any injury. Denies fevers chills or vision changes chest pain or shortness of breath. Her main complaint is intermittent nausea and vomiting along with abdominal discomfort and pain. Denies any burning urination fall smell or discomfort. Patient found to have urinary tract infection with multiple electrolyte abnormalities here at this time. Patient provided with 2 L of fluid is feeling better. 2 g of Rocephin given in the emergency room. Physical exam shows a thin female with poor skin turgor appears to be in some mild distress on presentation. Lungs are clear heart was regular but tachycardic abdomen is soft with tenderness in the right flank on the suprapubic region the abdomen or on her bladder. Patient was all 4 extremities no signs of other issues at this time. Accu-Chek at presentation was 176. Labs are not consistent at this time with diabetic ketoacidosis. Patient to be admitted for fluid resuscitation urinary tract symptom treatment. Patient otherwise is resting but at this time the symptoms that are resolving with fluid hydrations time. See detailed documentation of medical intervention consultation and treatment course by the resident physician.
[2016-12-25] MEDS ORDERED: *HR* Dextrose 50 % in Water (Syg) 50 ML SYRINGE IVP PRN ×2 (13:46→21:02)
[2016-12-25] MEDS: 0.9 % Sodium Chloride 1,000 ML IVC SCH ×4 (14:10→23:21)
[2016-12-25 14:19] LABS: Hematocrit 40.6 % (35.3-44.9); Hemoglobin 13.3 g/dL (11.5-15.4); Immature Platelets 1.7 % (1.1-6.1); Lymphocytes % 19.1 %; Mean Corpuscular HGB Conc 32.8 g/dL (31.6-35.5); Mean Corpuscular Hemoglobin 30.2 pg (28.0-33.3); Mean Corpuscular Volume 92.1 fL (83.0-100.0); Mean Platelet Volume 9.3 fL (9.4-12.4); Monocytes % 8.3 %; Platelet Count 534 K/mcL (140-400); Red Blood Count 4.41 M/mcL (3.82-4.97); Red Cell Distribution Width 13.7 % (11.5-14.5); Segmented Neutrophils % 68.6 %
[2016-12-25 14:20] LABS: Basophils # 0.1 K/mcL (0.0-0.2); Basophils % 1.1 %; Eosinophils # 0.2 K/mcL (0.0-0.6); Eosinophils % 1.9 %; Lymphocytes # 1.7 K/mcL (0.6-4.6); Monocytes # 0.7 K/mcL (0.0-1.3); Neutrophils # 6.1 K/mcL (1.6-8.9)
[2016-12-25 14:23] LABS: Beta-Hydroxybutyric Acid > 2.00 mmol/L (0.02-0.27)
[2016-12-25 14:25] LABS: VBG HCO3 17.3 mEq/L (21-27); VBG PH 7.37 pH Units (7.32-7.42)
[2016-12-25 14:32] LABS: Alanine Aminotransferase 41 Units/L (0-55); Albumin 3.5 g/dL (3.5-5.0); Albumin/Globulin Ratio 0.9 (1.1-2.2); Alkaline Phosphatase 372 Units/L (38-126); Aspartate Amino Transferase 21 Units/L (5-34); BUN/Creatinine Ratio 12 (6-26); Bilirubin,Total 0.5 mg/dL (0.2-1.2); Blood Urea Nitrogen 15 mg/dL (7-20); Carbon Dioxide 15 mEq/L (19-29); Chloride 102 mEq/L (98-109); Globulin 3.9 g/dL (2.4-3.5); Glucose 198 mg/dL (70-99); Magnesium 1.9 mg/dL (1.6-2.6); Osmolality,Calculated 290 (280-300); Phosphorous 2.8 mg/dL (2.3-4.7); Potassium 4.1 mEq/L (3.5-4.5); Sodium 137 mEq/L (136-145); Total Protein 7.4 g/dL (6.0-8.3); eGFR For African Americans 58 (> 60); eGFR For Non-African Americans 47 (> 60)
[2016-12-25] MEDS ORDERED: Ondansetron 4 MG/2 ML VIAL IVP ONE (14:33)
[2016-12-25] MEDS ORDERED: *HR* Morphine 2 MG/ML SYRINGE IVP ONE ×2 (14:33→17:08)
[2016-12-25 14:35] LABS: Salicylate < 5.0 mg/dL (15-30)
[2016-12-25 15:19] LABS: Bilirubin,Urine Large (Negative); Blood,Urine Negative (Negative); Clarity,Urine Clear (Clear); Glucose,Urine (UA) >=1000 mg/dL (Normal); Ketones,Urine >=160 mg/dL (Negative); Leukocyte Esterase,Urine Small (Negative); Nitrite,Urine Positive (Negative); PH,Urine 5.5 pH Units (5.0-8.0); Protein,Urine 100 mg/dL (Neg-Trace); Specific Gravity,Urine > 1.030 (1.010-1.025); Urobilinogen,Urine Normal (Normal)
[2016-12-25 15:23] LABS: Bacteria,Urine Few per hpf (None-Few); Hyaline Casts,Urine Moderate per lpf (None-Few); Squamous Epithelial Cell,Urine Many per lpf (None-Few)
[2016-12-25 15:26] LABS: Amphetamine Screen,Urine Negative ng/mL (Cutoff=1000); Barbiturate Screen,Urine Negative ng/mL (Cutoff=200); Benzodiazepines Screen,Urine Negative ng/mL (Cutoff=200); Cannabinoid Screen,Urine Negative ng/mL (Cutoff = 50); Cocaine Screen,Urine Positive ng/mL (Cutoff= 300); Color,Urine Amber (Yellow); Opiate Screen,Urine Positive ng/mL (Cutoff=300); Phencyclidine Screen,Urine Negative ng/mL (Cutoff=25)
[2016-12-25] MEDS ORDERED: *HR* Promethazine 25 MG/ML VIAL IVP ONE (17:09)
[2016-12-25] MEDS ORDERED: 0.9 % Sodium Chloride 1,000 ML IVC ONE (17:45)
[2016-12-25] MEDS ORDERED: *HR* HYDROmorphone (PF) 1 MG/ML SYRINGE IVP ONE (18:43)
[2016-12-25] MEDS ORDERED: 0.9 % Sodium Chloride 1,000 ML IVC SCH (18:45)
[2016-12-25] MEDS ORDERED: Naloxone 0.4 MG/ML INJ IVP PRN (20:58)
[2016-12-25] MEDS ORDERED: Acetaminophen 325 MG TABLET PO PRN (20:58)
[2016-12-25] MEDS ORDERED: D5% in 0.45% NACL 1,000 ML IVC PRN ×2 (21:02→22:03)
[2016-12-25] MEDS ORDERED: Insulin LISPRO 300 UNITS/3 ML VIAL SQ PRN (21:02)
[2016-12-25] MEDS ORDERED: Metoclopramide 10 MG/2 ML VIAL IVP PRN (21:08)
[2016-12-25] MEDS ORDERED: Insulin Human Regular 100 UNIT in 0.9 % Sodium Chloride 100 ML IVC SCH (21:15)
[2016-12-25] MEDS ORDERED: 0.45 % Sodium Chloride w/KCl 20 MEQ/1,000 ML MLS IVC PRN (22:03)
[2016-12-25] MEDS ORDERED: 0.9 % Sodium Chloride w KCl 20 MEQ/1,000 ML MLS IVC ONE (22:08)
[2016-12-25] MEDS: *HR* OxyCODONE/APAP 5/325 TABLET PO PRN (22:18)
[2016-12-25] MEDS ORDERED: 0.9 % Sodium Chloride w KCl 20 MEQ/1,000 ML MLS IVC PRN (22:21)
[2016-12-25 23:30] LABS: BUN/Creatinine Ratio 10 (6-26); Blood Urea Nitrogen 14 mg/dL (7-20); Chloride 112 mEq/L (98-109); Osmolality,Calculated 310 (280-300); Sodium 138 mEq/L (136-145); eGFR For African Americans 54 (> 60); eGFR For Non-African Americans 44 (> 60)
[2016-12-25 23:34] LABS: Calcium 7.8 mg/dL (8.6-10.8)
[2016-12-25 23:38] LABS: Carbon Dioxide < 5 mEq/L (19-29); Glucose 517 mg/dL (70-99)
[2016-12-25 23:52] LABS: Potassium 6.1 mEq/L (3.5-4.5)
[2016-12-26 00:36] LABS: ABG Base Excess -19.3 mEq/L (-2.0 to 3.0); ABG HCO3 7 mEq/L (21-27); ABG Oxygen Saturation 98 % (95-98); ABG PO2 117 mmHg (85-104); ABG TCO2 7.5 mEq/L (20-26)
[2016-12-26 00:37] LABS: Blood Gas FiO2 21 %
[2016-12-26 00:39] LABS: ABG PCO2 18 mmHg (35-45); ABG PH 7.19 pH Units (7.32-7.45)
[2016-12-26] MEDS: D5% in 0.45% NACL w KCl 20 MEQ/1,000 ML MLS IVC PRN ×6 (02:05→23:11)
[2016-12-26 03:04] LABS: Basophils # 0.1 K/mcL (0.0-0.2); Basophils % 0.7 %; Eosinophils # 0.1 K/mcL (0.0-0.6); Eosinophils % 0.6 %; Hematocrit 30.4 % (35.3-44.9); Hemoglobin 9.8 g/dL (11.5-15.4); Immature Granulocytes % 2.8 % (0-4); Immature Platelets 1.1 % (1.1-6.1); Lymphocytes # 3.1 K/mcL (0.6-4.6); Lymphocytes % 23.7 %; Mean Corpuscular HGB Conc 32.2 g/dL (31.6-35.5); Mean Corpuscular Hemoglobin 31.1 pg (28.0-33.3); Mean Corpuscular Volume 96.5 fL (83.0-100.0); Mean Platelet Volume 8.9 fL (9.4-12.4); Monocytes # 1.2 K/mcL (0.0-1.3); Neutrophils # 8.2 K/mcL (1.6-8.9); Platelet Count 414 K/mcL (140-400); Red Blood Count 3.15 M/mcL (3.82-4.97); Red Cell Distribution Width 13.8 % (11.5-14.5); Segmented Neutrophils % 63.2 %
[2016-12-26 03:20] LABS: BUN/Creatinine Ratio 11 (6-26); Blood Urea Nitrogen 12 mg/dL (7-20); Calcium 7.8 mg/dL (8.6-10.8); Carbon Dioxide 12 mEq/L (19-29); Chloride 117 mEq/L (98-109); Glucose 183 mg/dL (70-99); Magnesium 1.7 mg/dL (1.6-2.6); Osmolality,Calculated 292 (280-300); Sodium 139 mEq/L (136-145); eGFR For African Americans > 60 (> 60); eGFR For Non-African Americans 57 (> 60)
[2016-12-26 03:21] LABS: Potassium 4.6 mEq/L (3.5-4.5)
[2016-12-26] MEDS ORDERED: Insulin Human Regular 100 UNIT in 0.9 % Sodium Chloride 100 ML IVC SCH (03:45)
[2016-12-26] MEDS ORDERED: 0.45 % Sodium Chloride w/KCl 20 MEQ/1,000 ML MLS IVC PRN (05:40)
--- NOTE | 2016-12-26 05:47 | Internal Med History&Physical ---
Date of Encounter: 12/26/16 Time of Encounter: 20:00 Assessment and Plan (1) DKA (diabetic ketoacidoses) Current visit: No Status: Resolved Patient has a metabolic acidosis, elevated anion gap, sugar level high to 500, ketone positive. Consider DKA - Place patient on DKA protocol - Insulin drip, check sugar every 1 hour. - hydrated patient with fluid. - Check BMP every 4-6 hours, supplement potassium as needed. Patient is at high risk because she has DKA, need insulin drip, need close monitoring Qualifiers: Diabetes mellitus type: type 1 Diabetes mellitus complication detail: without coma Qualified Code(s): E10.10 - Type 1 diabetes mellitus with ketoacidosis without coma (2) Diarrhea Current visit: Yes Status: Acute Patient complaint of diarrhea. She has history of C. difficile infection. Will check stool GI panel. Qualifiers: Diarrhea type: unspecified type Qualified Code(s): R19.7 - Diarrhea, unspecified (3) PAOLA (acute kidney injury) Current visit: No Status: Resolved Probably due to dehydration caused by DKA. Continue hydrate patient, check renal function in a.m. (4) DVT prophylaxis Current visit: No Status: Acute Heparin subcutaneously (5) UTI (urinary tract infection) Current visit: No Status: Acute Patient has symptoms of UTI. Urine analysis positive. Will place patient on Rocephin. Follow-up urine culture. Qualifiers: Urinary tract infection type: acute cystitis Hematuria presence: without hematuria Qualified Code(s): N30.00 - Acute cystitis without hematuria Internal Medicine - H&P: HPI Chief complaint: Nausea vomiting, abdominal pain Admitted From: Home Plans for Post Hospital Care: Home History of present illness: Ms. Sierra is a 31 year old female with history of type 1 diabetes and hypertension present to ER for abdominal pain and nausea vomiting for 3 days. Patient denies a fever. The abdominal pain is aching all around the belly. The vomiting is stomach content, no blood in it. He should also has diarrhea for 2 days, diarrhea is a watery, about 1-2 times a day. Patient has a history of C. difficile colitis. Patient has dysuria and burning on urination. Past Med Surg Social Fam HX - Past Medical History Medical history: arthritis, cirrhosis, diabetes, GERD, glaucoma, hyperlipidemia , hypertension, liver disease, osteoporosis, other Psychiatric history: anxiety - Past Surgical History Surgical History: appendectomy, , cholecystectomy, sinus surgery, other - Social History Smoking Status: Never smoker Smokeless Tobacco Status: No Alcohol use: none Drug use: cocaine - Family History Grandmother Family Member Ethnicity: Non- Living Status: Still Living Hx Family Cardiac Disorders: No Hx Family Respiratory Disorders: No Hx Family Cancer: No Hx Family GI Disorders: No Hx Family Endocrine Disorder: Yes (type 2 diabetes) Hx Family Neuromuscular Disorders: No Hx Family Neurologic Disorders: Yes (stroke) Hx Family HEENT Disorders: No Hx Family Autoimmune Disorders: No Internal Medicine - H&P: Meds Insulin ASPART [NovoLOG] 0 unit SQ TIDWM 30 Days 12/16/16 [Rx] Metoclopramide [Reglan] 10 mg PO BID #30 tablet 12/16/16 [Rx] Insulin Glargine,Hum.rec.anlog [Lantus Solostar] 5 unit SQ HS 30 Days 12/18/16 [ Rx] LORazepam [Ativan] 1 mg PO BID #6 12/18/16 [Rx] Metoprolol [Lopressor] 25 mg PO BID #60 tablet 12/18/16 [Rx] Oxycodone HCl/Acetaminophen [Percocet 5-325 mg Tablet] 1 tab PO Q6H PRN #10 [Rx] 3 Allergy/AdvReac Type Severity Reaction Status Date / Time hydrocodone Allergy Hives Verified 12/13/16 12:28 All Systems PM: A 10-system review of systems was performed and is negative for pertinent findings except as documented above in the HPI. - Constitutional Vitals: Temp Pulse Resp BP Pulse Ox 97.9 F 105 18 112/68 98 12/26/16 03:06 12/26/16 03:06 12/26/16 03:06 12/26/16 03:06 12/26/16 03:06 General appearance: Present: A&O X 3, no acute distress, answers questions appropriately - Head Head exam: Present: atraumatic, normocephalic - Eye Eye exam: Present: PERRL, conjuntiva pink, sclera anicteric Pupils: Present: PERRL - Neck Neck exam general surgery: Present: supple, trachea midline. Absent: lymphadenopathy - Respiratory Respiratory exam: Present: CTAB. Absent: accessory muscle use, rales, rhonchi, wheezes - Cardiovascular Cardiovascular exam: Present: RRR, +S1, +S2. Absent: diastolic murmur, gallop, rubs, systolic murmur - GI/Abdominal GI/Abdominal exam: Present: normal bowel sounds, soft, tenderness (Without rebound or guarding), no peritoneal signs. Absent: distended - Extremities Exam Extremities exam: Present: warm, radial pulses palpable and symmetrical. Absent : calf tenderness, cyanotic, pedal edema - Neurological Exam Neurological exam: Present: CN II-XII intact, oriented X3, no focal deficits. Absent: pronater drift, facial droop, speech deficit - Skin Skin exam: Present: dry, intact Internal Med - H&P Results - Labs CBC & Chem 7: 12/26/16 02:57 12/26/16 02:57 Labs: Short CBC 12/26/16 Range/Units 02:57 WBC 13.0 H (4.3-11.1) K/mcL Hgb 9.8 L D (11.5-15.4) g/dL Hct 30.4 L (35.3-44.9) % Plt Count 414 H (140-400) K/mcL Neutrophils # 8.2 (1.6-8.9) K/mcL BMP 12/25/16 12/26/16 23:01 02:57 Sodium 138 139 Potassium 6.1 H D 4.6 H D Chloride 112 H 117 H Carbon Dioxide < 5 L* 12 L BUN 14 12 Creatinine 1.38 H 1.11 Glucose 517 H* 183 H Calcium 7.8 L D 7.8 L - ABG Interpretation Interpretation: ABG interpreted by me ABG results: 12/26/16 00:27 ABG pH 7.19 L* ABG pCO2 18 L* ABG pO2 117 H ABG HCO3 7 L ABG Total CO2 7.5 L ABG O2 Saturation 98 ABG Base Excess -19.3 L Interpretation: metabolic acidosis
[2016-12-26] MEDS: *HR* Heparin 5,000 UNIT/ML VIAL SQ SCH ×2 (06:04→17:23)
[2016-12-26] MEDS: 0.9 % Sodium Chloride 1,000 ML IVC SCH ×2 (06:11→10:14)
[2016-12-26 07:39] LABS: BUN/Creatinine Ratio 10 (6-26); Blood Urea Nitrogen 11 mg/dL (7-20); Calcium 7.8 mg/dL (8.6-10.8); Carbon Dioxide 11 mEq/L (19-29); Chloride 116 mEq/L (98-109); Glucose 170 mg/dL (70-99); Osmolality,Calculated 289 (280-300); Potassium 4.6 mEq/L (3.5-4.5); Sodium 138 mEq/L (136-145); eGFR For African Americans > 60 (> 60); eGFR For Non-African Americans 59 (> 60)
[2016-12-26] MEDS: *HR* LORazepam 1 MG TABLET PO SCH ×2 (08:26→20:54)
[2016-12-26 10:48] LABS: BUN/Creatinine Ratio 9 (6-26); Blood Urea Nitrogen 8 mg/dL (7-20); Calcium 7.7 mg/dL (8.6-10.8); Carbon Dioxide 16 mEq/L (19-29); Chloride 116 mEq/L (98-109); Glucose 111 mg/dL (70-99); Osmolality,Calculated 283 (280-300); Sodium 137 mEq/L (136-145); eGFR For African Americans > 60 (> 60); eGFR For Non-African Americans > 60 (> 60)
[2016-12-26] MEDS: *HR* OxyCODONE/APAP 5/325 TABLET PO PRN ×2 (13:23→20:54)
--- NOTE | 2016-12-26 13:44 | Internal Med Progress Note ---
Date of Encounter: 12/26/16 Time of Encounter: 13:41 - Assessment and plan (1) DKA (diabetic ketoacidosis) Current Visit: No Status: Resolved Assessment and plan: Acute DKA likely triggered by a UTI Switch to 5 units of Levemir once HCO3 is about 18, anion gap has closed but the patient is a still a little symptomatic Discontinue insulin drip after starting Levemir and continue with insulin sliding scale as the patient is very sensitive to insulin Continue IV fluids, monitor basic metabolic panel Qualifiers: Diabetes mellitus type: type 1 Diabetes mellitus complication detail: without coma Qualified Code(s): E10.10 - Type 1 diabetes mellitus with ketoacidosis without coma (2) UTI (urinary tract infection) Current Visit: No Status: Acute Assessment and plan: Continue Rocephin day 2 Cultures pending Qualifiers: Urinary tract infection type: acute cystitis Hematuria presence: without hematuria Qualified Code(s): N30.00 - Acute cystitis without hematuria (3) PAOLA (acute kidney injury) Current Visit: No Status: Resolved Assessment and plan: Secondary to dehydration and DKA Resolved (4) Leukocytosis Current Visit: No Status: Acute Qualifiers: Leukocytosis type: unspecified Qualified Code(s): D72.829 - Elevated white blood cell count, unspecified (5) Nausea & vomiting Current Visit: No Status: Acute Qualifiers: Vomiting type: unspecified Vomiting Intractability: unspecified Qualified Code(s): R11.2 - Nausea with vomiting, unspecified (6) Diarrhea Current Visit: No Status: Acute Assessment and plan: Resolved Qualifiers: Diarrhea type: unspecified type Qualified Code(s): R19.7 - Diarrhea, unspecified (7) Cocaine abuse Current Visit: Yes Status: Acute (8) GERD (gastroesophageal reflux disease) Current Visit: No Status: Chronic Assessment and plan: Omeprazole Qualifiers: Esophagitis presence: without esophagitis Qualified Code(s): K21.9 - Gastro -esophageal reflux disease without esophagitis - Subjective Interval history: Feeling better, still complaining of some abdominal pain. Nausea. No vomiting. Stopped having diarrhea today. Complained of dysuria for the past 3 days, no fevers overnight, no chest pain or shortness of breath - Constitutional Vitals: Temp Pulse Resp BP Pulse Ox 97.7 F 94 16 109/73 99 12/26/16 11:39 12/26/16 11:41 12/26/16 11:39 12/26/16 11:39 12/26/16 11:39 General appearance: Present: cachectic, A&O X 3, no acute distress, answers questions appropriately - Head Head exam: Present: atraumatic, normocephalic - Eye Eye exam: Present: PERRL, conjuntiva pink, sclera anicteric Pupils: Present: PERRL - Neck Neck exam general surgery: Present: supple, trachea midline. Absent: lymphadenopathy - Respiratory Respiratory exam: Present: CTAB. Absent: accessory muscle use, rales, rhonchi, wheezes - Cardiovascular Cardiovascular exam: Present: RRR, +S1, +S2. Absent: diastolic murmur, gallop, rubs, systolic murmur - GI/Abdominal GI/Abdominal exam: Present: normal bowel sounds, soft, no peritoneal signs. Absent: distended, tenderness - Extremities Exam Extremities exam: Present: warm, radial pulses palpable and symmetrical. Absent : calf tenderness, cyanotic, pedal edema - Neurological Exam Neurological exam: Present: CN II-XII intact, oriented X3, no focal deficits. Absent: pronater drift, facial droop, speech deficit - Skin Skin exam: Present: dry, intact Internal Medicine: Result - Labs CBC & Chem 7: 12/26/16 02:57 12/26/16 10:00 Labs: Short CBC 12/26/16 Range/Units 02:57 WBC 13.0 H (4.3-11.1) K/mcL Hgb 9.8 L D (11.5-15.4) g/dL Hct 30.4 L (35.3-44.9) % Plt Count 414 H (140-400) K/mcL Neutrophils # 8.2 (1.6-8.9) K/mcL BMP 12/25/16 12/26/16 12/26/16 23:01 02:57 02:57 Sodium 138 139 138 Potassium 6.1 H D 4.6 H D 4.6 H Chloride 112 H 117 H 116 H Carbon Dioxide < 5 L* 12 L 11 L BUN 14 12 11 Creatinine 1.38 H 1.11 1.08 Glucose 517 H* 183 H 170 H Calcium 7.8 L D 7.8 L 7.8 L 12/26/16 10:00 Sodium 137 Potassium 4.0 Chloride 116 H Carbon Dioxide 16 L BUN 8 Creatinine 0.86 Glucose 111 H Calcium 7.7 L - ABG Interpretation ABG results: ABG ABG pH 7.19 pH Units (7.32-7.45) L* 12/26/16 00:27 ABG pCO2 18 mmHg (35-45) L* 12/26/16 00:27 ABG pO2 117 mmHg (85-104) H 12/26/16 00:27 ABG O2 Saturation 98 % (95-98) 12/26/16 00:27 Consult Discharge Plan - Plan
[2016-12-26 14:22] LABS: BUN/Creatinine Ratio 7 (6-26); Blood Urea Nitrogen 6 mg/dL (7-20); Calcium 7.5 mg/dL (8.6-10.8); Carbon Dioxide 14 mEq/L (19-29); Chloride 115 mEq/L (98-109); Glucose 133 mg/dL (70-99); Osmolality,Calculated 280 (280-300); Sodium 135 mEq/L (136-145); eGFR For African Americans > 60 (> 60); eGFR For Non-African Americans > 60 (> 60)
[2016-12-26 18:14] LABS: BUN/Creatinine Ratio 6 (6-26); Calcium 7.8 mg/dL (8.6-10.8); Carbon Dioxide 14 mEq/L (19-29); Chloride 115 mEq/L (98-109); Glucose 174 mg/dL (70-99); Osmolality,Calculated 283 (280-300); Potassium 4.6 mEq/L (3.5-4.5); Sodium 136 mEq/L (136-145); eGFR For African Americans > 60 (> 60); eGFR For Non-African Americans > 60 (> 60)
[2016-12-26 18:17] LABS: Blood Urea Nitrogen 5 mg/dL (7-20)
[2016-12-26] MEDS: Ondansetron 4 MG/2 ML VIAL IVP PRN (20:54)
[2016-12-26 22:19] LABS: BUN/Creatinine Ratio 5 (6-26); Blood Urea Nitrogen 4 mg/dL (7-20); Calcium 8.1 mg/dL (8.6-10.8); Carbon Dioxide 14 mEq/L (19-29); Chloride 115 mEq/L (98-109); Glucose 165 mg/dL (70-99); Osmolality,Calculated 285 (280-300); Potassium 4.2 mEq/L (3.5-4.5); Sodium 137 mEq/L (136-145); eGFR For African Americans > 60 (> 60); eGFR For Non-African Americans > 60 (> 60)
[2016-12-27] MEDS: D5% in 0.45% NACL w KCl 20 MEQ/1,000 ML MLS IVC PRN ×2 (02:52→06:49)
[2016-12-27] MEDS: *HR* OxyCODONE/APAP 5/325 TABLET PO PRN ×3 (02:53→20:07)
[2016-12-27 03:45] LABS: Hematocrit 28.9 % (35.3-44.9); Hemoglobin 9.3 g/dL (11.5-15.4); Mean Corpuscular HGB Conc 32.2 g/dL (31.6-35.5); Mean Corpuscular Hemoglobin 30.3 pg (28.0-33.3); Mean Corpuscular Volume 94.1 fL (83.0-100.0); Mean Platelet Volume 10.4 fL (9.4-12.4); Platelet Count 313 K/mcL (140-400); Red Blood Count 3.07 M/mcL (3.82-4.97); Red Cell Distribution Width 13.9 % (11.5-14.5)
[2016-12-27] MEDS: *HR* Heparin 5,000 UNIT/ML VIAL SQ SCH ×2 (06:17→18:33)
[2016-12-27] MEDS: *HR* HYDROmorphone (PF) 1 MG/ML SYRINGE IVP PRN ×3 (06:18→23:01)
[2016-12-27 06:50] LABS: BUN/Creatinine Ratio 3 (6-26); Calcium 7.9 mg/dL (8.6-10.8); Carbon Dioxide 14 mEq/L (19-29); Chloride 119 mEq/L (98-109); Glucose 137 mg/dL (70-99); Osmolality,Calculated 286 (280-300); Potassium 5.1 mEq/L (3.5-4.5); Sodium 139 mEq/L (136-145); eGFR For African Americans > 60 (> 60); eGFR For Non-African Americans > 60 (> 60)
[2016-12-27 06:51] LABS: Blood Urea Nitrogen 2 mg/dL (7-20)
--- NOTE | 2016-12-27 08:28 | Electrocardiograph Report ---
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
[2016-12-27] MEDS: *HR* LORazepam 1 MG TABLET PO SCH ×2 (08:42→20:07)
[2016-12-27] MEDS ORDERED: D5% in Water 1,000 ML IVC SCH ×2 (09:00→14:27)
[2016-12-27 13:38] LABS: BUN/Creatinine Ratio 3 (6-26); Calcium 7.9 mg/dL (8.6-10.8); Carbon Dioxide 18 mEq/L (19-29); Chloride 118 mEq/L (98-109); Glucose 108 mg/dL (70-99); Osmolality,Calculated 283 (280-300); Potassium 4.3 mEq/L (3.5-4.5); Sodium 138 mEq/L (136-145); eGFR For African Americans > 60 (> 60); eGFR For Non-African Americans > 60 (> 60)
[2016-12-27 13:57] LABS: Blood Urea Nitrogen 2 mg/dL (7-20)
[2016-12-27] MEDS ORDERED: Insulin DETEMIR 100 UNIT/ML X5UNITS SQ ONE (14:26)
[2016-12-27] MEDS ORDERED: *HR* Dextrose 50 % in Water (Syg) 50 ML SYRINGE IVP PRN (15:03)
[2016-12-27] MEDS ORDERED: D5% in Water 1,000 ML IVC PRN (15:03)
[2016-12-27] MEDS ORDERED: Dextrose Gel 15 GM PO PRN ×2 (15:03)
[2016-12-27] MEDS: Ondansetron 4 MG/2 ML VIAL IVP PRN ×2 (16:14→20:07)
[2016-12-27] MEDS: Insulin LISPRO 300 UNITS/3 ML VIAL SQ SCH (17:21)
--- NOTE | 2016-12-27 17:22 | Internal Med Progress Note ---
Date of Encounter: 12/27/16 Time of Encounter: 11:45 - Assessment and plan (1) DKA (diabetic ketoacidosis) Status: Acute Assessment and plan: Improving. Blood sugars are much better but patient is still acidotic. Likely hyperchloremic acidosis. IV fluids have now been changed to D5 water to decrease chloride load. Patient may have underlying type IV renal tubular acidosis. We will discuss with nephrology. Continue to monitor basic panel. Monitor blood sugars. If her acidosis improves, will start her on clear liquid diet and titrate off insulin drip. Qualifiers: Diabetes mellitus type: type 1 Diabetes mellitus complication detail: without coma Qualified Code(s): E10.10 - Type 1 diabetes mellitus with ketoacidosis without coma (2) PAOLA (acute kidney injury) Status: Resolved Assessment and plan: This has resolved with IV fluids. (3) Cocaine abuse Status: Acute (4) Diarrhea Status: Resolved Assessment and plan: Resolved. Qualifiers: Diarrhea type: unspecified type Qualified Code(s): R19.7 - Diarrhea, unspecified (5) GERD (gastroesophageal reflux disease) Status: Chronic Assessment and plan: On PPI. Qualifiers: Esophagitis presence: without esophagitis Qualified Code(s): K21.9 - Gastro -esophageal reflux disease without esophagitis (6) Nausea & vomiting Status: Acute Assessment and plan: Improving. We will start clear liquid diet later today depending on blood sugars and metabolic panel. Qualifiers: Vomiting type: unspecified Vomiting Intractability: non-intractable Qualified Code(s): R11.2 - Nausea with vomiting, unspecified (7) UTI (urinary tract infection) Status: Acute Assessment and plan: Continue antibiotic. Qualifiers: Urinary tract infection type: acute cystitis Hematuria presence: without hematuria Qualified Code(s): N30.00 - Acute cystitis without hematuria - Subjective Interval history: A shunt is awake and alert. Complains of continued abdominal discomfort but improving. Feels hungry. No fever or chills reported. No dysuria. - Constitutional Vitals: Temp Pulse Resp BP Pulse Ox 98.0 F 89 18 121/85 98 12/27/16 16:31 12/27/16 16:31 12/27/16 16:31 12/27/16 16:31 12/27/16 16:31 General appearance: Present: cachectic, cooperative, A&O X 3, no acute distress , answers questions appropriately - Eye Eye exam: Present: EOMI, PERRL, conjuntiva pink, sclera anicteric - Respiratory Respiratory exam: Present: CTAB. Absent: accessory muscle use, rales, rhonchi, wheezes - Cardiovascular Cardiovascular exam: Present: RRR, +S1, +S2. Absent: diastolic murmur, gallop, rubs, systolic murmur - GI/Abdominal GI/Abdominal exam: Present: normal bowel sounds, soft, tenderness (Epigastric), no peritoneal signs. Absent: distended - Neurological Exam Neurological exam: Present: CN II-XII intact, oriented X3, no focal deficits, strengths equal and symetr throughout. Absent: facial droop, speech deficit Internal Medicine: Result - Labs CBC & Chem 7: 12/28/16 07:31 12/28/16 11:35 Labs: Short CBC 12/27/16 Range/Units 02:57 WBC 5.5 D (4.3-11.1) K/mcL Hgb 9.3 L (11.5-15.4) g/dL Hct 28.9 L (35.3-44.9) % Plt Count 313 (140-400) K/mcL BMP 12/26/16 12/27/16 12/27/16 21:34 06:17 12:38 Sodium 137 139 138 Potassium 4.2 5.1 H 4.3 Chloride 115 H 119 H 118 H Carbon Dioxide 14 L 14 L 18 L BUN 4 L 2 L 2 L Creatinine 0.84 0.79 0.71 Glucose 165 H 137 H 108 H Calcium 8.1 L 7.9 L 7.9 L - ABG Interpretation ABG results: ABG ABG pH 7.19 pH Units (7.32-7.45) L* 12/26/16 00:27 ABG pCO2 18 mmHg (35-45) L* 12/26/16 00:27 ABG pO2 117 mmHg (85-104) H 12/26/16 00:27 ABG O2 Saturation 98 % (95-98) 12/26/16 00:27 Consult Discharge Plan - Plan Instructions: Antihistamine/Antitussive (By mouth), Levofloxacin (By mouth), Diabetes Mellitus Type 2 in Adults (DC) Referrals: BARRY ALBERTO [Other] - 01/06/17 9:00 am Cale Cueto DO [Partnered Physician] - 01/13/17 3:10 pm (in 1- 2 weeks. For possible RTA; hyperchloremic metabolic acidosis) Prescriptions: GuaiFENesin/Dextromethorphan [Robitussin/DM] 10 ml PO Q6HR #1 syrup levoFLOXacin [Levaquin] 500 mg PO DAILY #7 tablet
[2016-12-27 19:33] LABS: BUN/Creatinine Ratio 3 (6-26); Calcium 8.2 mg/dL (8.6-10.8); Carbon Dioxide 19 mEq/L (19-29); Chloride 115 mEq/L (98-109); Glucose 74 mg/dL (70-99); Osmolality,Calculated 281 (280-300); Potassium 4.3 mEq/L (3.5-4.5); Sodium 138 mEq/L (136-145); eGFR For African Americans > 60 (> 60); eGFR For Non-African Americans > 60 (> 60)
[2016-12-27 19:40] LABS: Blood Urea Nitrogen 2 mg/dL (7-20)
[2016-12-27] MEDS ORDERED: Insulin LISPRO 300 UNITS/3 ML VIAL SQ SCH (21:00)
[2016-12-28] MEDS: Ondansetron 4 MG/2 ML VIAL IVP PRN (03:06)
[2016-12-28] MEDS: *HR* OxyCODONE/APAP 5/325 TABLET PO PRN (03:06)
[2016-12-28] MEDS: *HR* HYDROmorphone (PF) 1 MG/ML SYRINGE IVP PRN ×2 (06:24→11:53)
[2016-12-28] MEDS: *HR* Heparin 5,000 UNIT/ML VIAL SQ SCH (06:25)
[2016-12-28 08:00] LABS: Basophils # 0.1 K/mcL (0.0-0.2); Basophils % 1.3 %; Eosinophils # 0.2 K/mcL (0.0-0.6); Eosinophils % 3.5 %; Hematocrit 30.2 % (35.3-44.9); Immature Granulocytes % 2.2 % (0-4); Lymphocytes % 44.1 %; Mean Corpuscular HGB Conc 33.1 g/dL (31.6-35.5); Mean Corpuscular Hemoglobin 30.9 pg (28.0-33.3); Mean Corpuscular Volume 93.2 fL (83.0-100.0); Mean Platelet Volume 10.2 fL (9.4-12.4); Monocytes # 0.4 K/mcL (0.0-1.3); Monocytes % 8.6 %; Neutrophils # 1.8 K/mcL (1.6-8.9); Platelet Count 280 K/mcL (140-400); Red Blood Count 3.24 M/mcL (3.82-4.97); Red Cell Distribution Width 13.2 % (11.5-14.5); Segmented Neutrophils % 40.3 %
[2016-12-28 08:15] LABS: BUN/Creatinine Ratio 3 (6-26); Calcium 8.3 mg/dL (8.6-10.8); Carbon Dioxide 15 mEq/L (19-29); Chloride 113 mEq/L (98-109); Glucose 276 mg/dL (70-99); Osmolality,Calculated 288 (280-300); Potassium 4.9 mEq/L (3.5-4.5); Sodium 136 mEq/L (136-145); eGFR For African Americans > 60 (> 60); eGFR For Non-African Americans > 60 (> 60)
[2016-12-28 08:18] LABS: Blood Urea Nitrogen 3 mg/dL (7-20)
[2016-12-28] MEDS: Insulin LISPRO 300 UNITS/3 ML VIAL SQ SCH ×2 (09:16→12:21)
[2016-12-28] MEDS: *HR* LORazepam 1 MG TABLET PO SCH (09:16)
[2016-12-28] MEDS ORDERED: Insulin DETEMIR 100 UNIT/ML X5UNITS SQ SCH (09:18)
[2016-12-28 10:53] VITALS: BP 120/86
[2016-12-28 11:59] LABS: BUN/Creatinine Ratio 4 (6-26); Blood Urea Nitrogen 3 mg/dL (7-20); Calcium 8.7 mg/dL (8.6-10.8); Carbon Dioxide 21 mEq/L (19-29); Chloride 116 mEq/L (98-109); Glucose 64 mg/dL (70-99); Osmolality,Calculated 283 (280-300); Potassium 5.1 mEq/L (3.5-4.5); Sodium 139 mEq/L (136-145); eGFR For African Americans > 60 (> 60); eGFR For Non-African Americans > 60 (> 60)
--- NOTE | 2016-12-28 14:29 | Discharge Summary ---
Date of Encounter: 12/28/16 Time of Encounter: 14:28 - Discharge Diagnosis (1) DKA (diabetic ketoacidosis) Priority: Primary Status: Acute Qualifiers: Diabetes mellitus type: type 1 Diabetes mellitus complication detail: without coma Qualified Code(s): E10.10 - Type 1 diabetes mellitus with ketoacidosis without coma (2) PAOLA (acute kidney injury) Priority: Secondary Status: Resolved (3) Cocaine abuse Priority: Secondary Status: Acute (4) Diarrhea Priority: Secondary Status: Resolved Qualifiers: Diarrhea type: unspecified type Qualified Code(s): R19.7 - Diarrhea, unspecified (5) GERD (gastroesophageal reflux disease) Priority: Secondary Status: Chronic Qualifiers: Esophagitis presence: without esophagitis Qualified Code(s): K21.9 - Gastro -esophageal reflux disease without esophagitis (6) Nausea & vomiting Priority: Secondary Status: Acute Qualifiers: Vomiting type: unspecified Vomiting Intractability: non-intractable Qualified Code(s): R11.2 - Nausea with vomiting, unspecified (7) UTI (urinary tract infection) Priority: Secondary Status: Acute Qualifiers: Urinary tract infection type: acute cystitis Hematuria presence: without hematuria Qualified Code(s): N30.00 - Acute cystitis without hematuria (8) Hyperchloremic acidosis Priority: Secondary Status: Acute - Discharge Medications Prescriptions: GuaiFENesin/Dextromethorphan [Robitussin/DM] 10 ml PO Q6HR #1 syrup levoFLOXacin [Levaquin] 500 mg PO DAILY #7 tablet Home Medications: Insulin ASPART [NovoLOG] 0 unit SQ TIDWM 30 Days 12/16/16 [Rx] Metoclopramide [Reglan] 10 mg PO BID #30 tablet 12/16/16 [Rx] Insulin Glargine,Hum.rec.anlog [Lantus Solostar] 5 unit SQ HS 30 Days 12/18/16 [ Rx] LORazepam [Ativan] 1 mg PO BID #6 12/18/16 [Rx] Metoprolol [Lopressor] 25 mg PO BID #60 tablet 12/18/16 [Rx] Oxycodone HCl/Acetaminophen [Percocet 5-325 mg Tablet] 1 tab PO Q6H PRN #10 [Rx] GuaiFENesin/Dextromethorphan [Robitussin/DM] 10 ml PO Q6HR #1 syrup 12/28/16 [Rx ] levoFLOXacin [Levaquin] 500 mg PO DAILY #7 tablet 12/28/16 [Rx] Allergies/Adverse Reactions: 3 Allergy/AdvReac Type Severity Reaction Status Date / Time hydrocodone Allergy Hives Verified 12/13/16 12:28 Date of admission: 12/26/16 18:01 Primary care physician: Zehra Jamison Discharging clinician: Lila Ortiz Anticipated date of discharge: 12/28/16 - Patient Status Disposition: Home, Self-Care Condition: Good Functional capacity at discharge: independent ambulation Overall status at discharge: patient is progressing back to baseline - Discharge Instructions Instructions: Antihistamine/Antitussive (By mouth), Levofloxacin (By mouth), Diabetes Mellitus Type 2 in Adults (DC) Follow Up With: BARRY ALBERTO [Other] - 01/06/17 9:00 am Cale Cueto DO [Partnered Physician] - 01/13/17 3:10 pm (in 1- 2 weeks. For possible RTA; hyperchloremic metabolic acidosis) Forms: ED Satisfaction Letter, Work/School Release - Diet and Activity Activity: increase activity as tolerated Diet: diabetic diet, low fat, low cholesterol, low salt diet Hospital course: Ms. Sierra is a 31 year old female patient with a history of diabetes mellitus type 2 was admitted here with diabetic ketoacidosis. Her urine drug screen was positive for cocaine and possible UTI. She was treated with IV antibiotics and for DKA per the DKA protocol. She was severely acidotic with metabolic acidosis and developed hyperchloremic acidosis. After her fluids were changed from saline to dextrose with water, but this has improved. Her bicarbonate is now normal. I did discuss her case with nephrology and I will refer her for follow-up as outpatient to see if she has underlying renal tubular acidosis. At this time, she is stable for discharge. She will follow up with her primary care provider for further management of her diabetes. She has been counseled about drug abuse. - Time Spent with Patient Total time spent providing and/or coordinating discharge services: Greater than 30 minutes (35 min) - Constitutional Vitals: Temp Pulse Resp BP Pulse Ox 98.2 F 100 16 120/86 99 12/28/16 10:48 12/28/16 10:48 12/28/16 10:48 12/28/16 10:48 12/28/16 10:48 General appearance: Present: cachectic, cooperative, A&O X 3, no acute distress , answers questions appropriately - Respiratory Respiratory exam: Present: CTAB. Absent: accessory muscle use, rales, rhonchi, wheezes - Cardiovascular Cardiovascular exam: Present: RRR, +S1, +S2. Absent: diastolic murmur, gallop, rubs, systolic murmur - GI/Abdominal GI/Abdominal exam: Present: normal bowel sounds, soft, no peritoneal signs. Absent: distended, tenderness - Extremities Exam Extremities exam: Present: warm, radial pulses palpable and symmetrical. Absent : calf tenderness, cyanotic, pedal edema - Neurological Exam Neurological exam: Present: alert, oriented X3, no focal deficits. Absent: facial droop, speech deficit - Skin Skin exam: Present: dry, intact
== END 2016-12-28 15:22 | disposition home or self-care (01) | DRG 420 ==
LOC: EMEROO 13:39 → 2NNU 13:39 → SUATTDRO 12-26 18:01
PROVIDERS: ADMIT Internal Medicine; ATTEND Internal Medicine

== ENCOUNTER 2017-03-09 12:34 | Observation (INO) ==
[2017-03-09] MEDS ORDERED: 0.9 % Sodium Chloride 1,000 ML IVC ONE (13:02)
[2017-03-09] MEDS ORDERED: Ondansetron 4 MG/2 ML VIAL IVP ONE (13:02)
--- NOTE | 2017-03-09 13:05 | Emergency Department Note ---
Disposition Clinical Impression: DKA (diabetic ketoacidosis) Qualifiers: Diabetes mellitus type: type 1 Diabetes mellitus complication detail: without coma Qualified Code(s): E10.10 - Type 1 diabetes mellitus with ketoacidosis without coma UTI (urinary tract infection) Qualifiers: Urinary tract infection type: acute cystitis Hematuria presence: without hematuria Qualified Code(s): N30.00 - Acute cystitis without hematuria Disposition: Admitted As Inpatient Condition: Fair Referrals: Zehra Jamison CNP [Primary Care Provider] - Forms: ED Satisfaction Letter, Work/School Release Time of Disposition: 14:14 General Adult HPI - General Chief complaint: ED General Medical Stated complaint: DKA Time Seen by Provider: 03/09/17 12:51 Source: patient, family Mode of arrival: ambulatory Limitations: no limitations Nursing Notes Reviewed: Yes Vital Signs Reviewed: Yes - History of Present Illness HPI Narrative: 31-year-old female with a history of diabetes who comes in with nausea vomiting states she feels that she is in DKA. Patient has been DKA many times in the past. States her home monitor was reading high. Onset (ago): Just [employer] Location: abdomen Radiation: non-radiation Pain Scale: 8 Quality: aching Consistency: constant Improves with: nothing Worsens with: nothing Associated symptoms: Reports: nausea/vomiting Treatments Prior to Arrival: none - Related Data Home Medications Medication Instructions Recorded Confirmed Insulin ASPART [NovoLOG] 10 unit SQ TIDWM PRN 03/09/17 03/09/17 Insulin Glargine,Hum.rec.anlog 20 unit SQ BID 03/09/17 03/09/17 [Lantus Solostar] Sodium Bicarbonate 650 mg PO DAILY 03/09/17 03/09/17 Previous Rx's Medication Instructions Recorded LORazepam [Ativan] 1 mg PO BID #6 12/18/16 Metoprolol [Lopressor] 25 mg PO BID #60 tablet 12/18/16 Allergies Allergy/AdvReac Type Severity Reaction Status Date / Time hydrocodone Allergy Hives Verified 12/13/16 12:28 All systems ED: reviewed and negative except as stated. Constitutional: Denies: fever, chills, weakness, weight change Eyes: Denies: eye pain, eye discharge, vision change ENT ED: Denies: ear pain, throat pain, dental pain, hearing loss, epistaxis, congestion, dysphagia Cardiovascular: Denies: chest pain, palpitations, dyspnea on exertion, edema, syncope Respiratory: Denies: cough, dyspnea, wheezes, hemoptysis, stridor Gastrointestinal: Reports: abdominal pain, nausea, vomiting, diarrhea. Denies: constipation, hematemesis, melena, hematochezia Genitourinary: Denies: dysuria, frequency, hematuria, discharge Musculoskeletal: Denies: back pain, neck pain, arthralgia, myalgia Integumentary: Denies: rash, abrasion, lesions Neurological: Denies: headache, weakness, numbness, paresthesias, confusion, abnormal gait, vertigo Psychiatric: Denies: anxiety, depression, suicidal thoughts, homicidal thoughts , auditory hallucinations, visual hallucinations Endocrine: Denies: fatigue Hematological/Lymphatic: Denies: easy bleeding, easy bruising Allergic/Immunologic: Denies: facial swelling, urticaria Past Medical History - Past Medical History Medical history: Reports: arthritis, cirrhosis, diabetes, GERD, glaucoma, hyperlipidemia, hypertension, liver disease, osteoporosis Surgical history: Reports: appendectomy, , cholecystectomy, sinus surgery, other Psychiatric history: Reports: anxiety 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 history - Social History Smoking Status: Never smoker Smokeless Tobacco Status: No Alcohol use: Reports: none Drug use: Reports: cocaine Physical Exam - General Limitations: no limitations General appearance: alert, in no apparent distress - Head Head exam: atraumatic, normocephalic, normal inspection - Eye Eye exam: Present: normal appearance, PERRL, EOMI - ENT ENT exam: normal exam, normal oropharynx, mucous membranes moist - Neck Neck exam: Present: normal inspection, full ROM, trachea midline - Chest Chest inspection: Present: normal inspection, symmetric chest wall rise - Respiratory Respiratory exam: Present: normal lung sounds bilaterally - Cardiovascular Cardiovascular exam: Present: regular rate, normal rhythm, normal heart sounds - Abdominal Exam Abdominal exam: Present: soft, tenderness. Absent: guarding, rebound Abdominal tenderness: Present: diffuse - Extremities Exam Extremities exam: Present: normal inspection, full ROM. Absent: tenderness, pedal edema - Expanded Lower Extremity Exam Neurovascular/Tendon exam: Absent: motor deficit, sensory deficit, tendon deficit Gait: observed and normal - Back Exam Back exam: Present: normal inspection, full ROM. Absent: tenderness - Neurological Exam Neurological exam: Present: alert, oriented X3 - Psychiatric Psychiatric exam: Present: normal affect, normal mood - Skin Skin exam: Present: warm, dry, intact, normal color Course - Reevaluation(s) Reevaluation #1: 31-year-old history type 1 diabetes comes in with what she feels is DKA. Workup shows ketones and a depressed CO2. Urine shows evidence of infection. Patient will be admitted with a DKA likely secondary to infection. Patient was given IV Rocephin. Time: 14:57 - Consultations Consultation #1: Discussed with Dr. Mckay. Time: 14:59 Vital Signs Temperature 98.5 F 03/09/17 12:34 Pulse Rate 121 03/09/17 12:34 Respiratory Rate 20 03/09/17 12:34 Blood Pressure 128/78 03/09/17 12:34 O2 Sat by Pulse Oximetry 98 03/09/17 12:34 Temperature 98.5 F 03/09/17 12:34 Pulse Rate 108 03/09/17 14:22 Respiratory Rate 18 03/09/17 14:22 Blood Pressure 115/65 03/09/17 14:22 O2 Sat by Pulse Oximetry 97 03/09/17 14:22 Oxygen Delivery Oxygen Delivery Room Air Medical Decision Making - Lab Data Lab results reviewed: Yes I reviewed the patient's lab results. Result diagrams: 03/09/17 13:00 03/09/17 13:00 Lab Results 03/09/17 03/09/17 03/09/17 Range/Units 12:53 13:00 13:00 WBC 12.8 H (4.3-11.1) K/mcL RBC 4.10 (3.82-4.97) M/mcL Hgb 12.6 (11.5-15.4) g/dL Hct 38.8 (35.3-44.9) % MCV 94.6 (83.0-100.0) fL MCH 30.7 (28.0-33.3) pg MCHC 32.5 (31.6-35.5) g/dL RDW 12.2 (11.5-14.5) % Plt Count 393 (140-400) K/mcL MPV 9.7 (9.4-12.4) fL Immature Gran % 0.5 (0-4) % Seg Neutrophils % 78.7 % Lymphocytes % 15.2 % Monocytes % 4.6 % Eosinophils % 0.4 % Basophils % 0.6 % Neutrophils # 10.0 H (1.6-8.9) K/mcL Lymphocytes # 1.9 (0.6-4.6) K/mcL Monocytes # 0.6 (0.0-1.3) K/mcL Eosinophils # 0.1 (0.0-0.6) K/mcL Basophils # 0.1 (0.0-0.2) K/mcL Sodium 137 (136-145) mEq/L Potassium 4.6 H (3.5-4.5) mEq/L Chloride 105 (98-109) mEq/L Carbon Dioxide 16 L (19-29) mEq/L BUN 17 (7-20) mg/dL Creatinine 1.20 H (0.57-1.11) mg/dL Est GFR ( Amer) > 60 (> 60) Est GFR (Non-Af Amer) 52 L (> 60) BUN/Creatinine Ratio 14 (6-26) Glucose 230 H (70-99) mg/dL Calculated Osmolality 293 (280-300) Calcium 9.0 (8.6-10.8) mg/dL Beta-Hydroxybutyric Acd (0.02-0.27) mmol/L Serum , Qual (Negative) Urine Color Yellow (Yellow) Urine Clarity Slightly Hazy (Clear) Urine pH 6.0 (5.0-8.0) pH Units Ur Specific [place] 1.025 (1.010-1.025) Urine Protein 100 H (Neg-Trace) mg/dL Urine Glucose (UA) >=1000 H (Normal) mg/dL Urine Ketones >=160 H (Negative) mg/dL Urine Blood Small H (Negative) Urine Nitrite Negative (Negative) Urine Bilirubin Moderate H (Negative) Urine Urobilinogen Normal (Normal) mg/dL Ur Leukocyte Esterase Small H (Negative) Urine Microscopic RBC 5-15 H (0-3) per hpf Urine Microscopic WBC TNTC H (0-3) per hpf Ur Squamous Epith Cells Many H (None-Few) per lpf Urine Bacteria Few (None-Few) per hpf Hyaline Casts None Seen (None-Few) per lpf Ur Culture Indicated? YES A (NO) 03/09/17 03/09/17 Range/Units 13:00 13:29 WBC (4.3-11.1) K/mcL RBC (3.82-4.97) M/mcL Hgb (11.5-15.4) g/dL Hct (35.3-44.9) % MCV (83.0-100.0) fL MCH (28.0-33.3) pg MCHC (31.6-35.5) g/dL RDW (11.5-14.5) % Plt Count (140-400) K/mcL MPV (9.4-12.4) fL Immature Gran % (0-4) % Seg Neutrophils % % Lymphocytes % % Monocytes % % Eosinophils % % Basophils % % Neutrophils # (1.6-8.9) K/mcL Lymphocytes # (0.6-4.6) K/mcL Monocytes # (0.0-1.3) K/mcL Eosinophils # (0.0-0.6) K/mcL Basophils # (0.0-0.2) K/mcL Sodium (136-145) mEq/L Potassium (3.5-4.5) mEq/L Chloride (98-109) mEq/L Carbon Dioxide (19-29) mEq/L BUN (7-20) mg/dL Creatinine (0.57-1.11) mg/dL Est GFR ( Amer) (> 60) Est GFR (Non-Af Amer) (> 60) BUN/Creatinine Ratio (6-26) Glucose (70-99) mg/dL Calculated Osmolality (280-300) Calcium (8.6-10.8) mg/dL Beta-Hydroxybutyric Acd > 2.00 H (0.02-0.27) mmol/L Serum , Qual Negative (Negative) Urine Color (Yellow) Urine Clarity (Clear) Urine pH (5.0-8.0) pH Units Ur Specific [place] (1.010-1.025) Urine Protein (Neg-Trace) mg/dL Urine Glucose (UA) (Normal) mg/dL Urine Ketones (Negative) mg/dL Urine Blood (Negative) Urine Nitrite (Negative) Urine Bilirubin (Negative) Urine Urobilinogen (Normal) mg/dL Ur Leukocyte Esterase (Negative) Urine Microscopic RBC (0-3) per hpf Urine Microscopic WBC (0-3) per hpf Ur Squamous Epith Cells (None-Few) per lpf Urine Bacteria (None-Few) per hpf Hyaline Casts (None-Few) per lpf Ur Culture Indicated? (NO) - Radiology Data Radiology results reviewed: Yes I reviewed the patient's radiology results. Chest X-Ray 03/09/17 13:03 IMPRESSION: No acute cardiopulmonary process. D/ / 03/09/2017 13:24:50 Kenneth Loera MD / Alma Swan Interpreting Provider: Kenneth Loera MD - EKG Data EKG #1 EKG shows normal: sinus rhythm Rate: tachycardia Rhythm: NSR Interpretation: no acute changes
[2017-03-09 13:14] LABS: Basophils # 0.1 K/mcL (0.0-0.2); Basophils % 0.6 %; Eosinophils # 0.1 K/mcL (0.0-0.6); Eosinophils % 0.4 %; Hematocrit 38.8 % (35.3-44.9); Hemoglobin 12.6 g/dL (11.5-15.4); Immature Granulocytes % 0.5 % (0-4); Lymphocytes # 1.9 K/mcL (0.6-4.6); Lymphocytes % 15.2 %; Mean Corpuscular HGB Conc 32.5 g/dL (31.6-35.5); Mean Corpuscular Hemoglobin 30.7 pg (28.0-33.3); Mean Corpuscular Volume 94.6 fL (83.0-100.0); Mean Platelet Volume 9.7 fL (9.4-12.4); Monocytes # 0.6 K/mcL (0.0-1.3); Monocytes % 4.6 %; Platelet Count 393 K/mcL (140-400); Red Cell Distribution Width 12.2 % (11.5-14.5); Segmented Neutrophils % 78.7 %
[2017-03-09 13:22] LABS: BUN/Creatinine Ratio 14 (6-26); Blood Urea Nitrogen 17 mg/dL (7-20); Carbon Dioxide 16 mEq/L (19-29); Chloride 105 mEq/L (98-109); Glucose 230 mg/dL (70-99); Osmolality,Calculated 293 (280-300); Potassium 4.6 mEq/L (3.5-4.5); Sodium 137 mEq/L (136-145); eGFR For African Americans > 60 (> 60); eGFR For Non-African Americans 52 (> 60)
[2017-03-09 13:34] LABS: Bilirubin,Urine Moderate (Negative); Blood,Urine Small (Negative); Color,Urine Yellow (Yellow); Glucose,Urine (UA) >=1000 mg/dL (Normal); Ketones,Urine >=160 mg/dL (Negative); Leukocyte Esterase,Urine Small (Negative); Nitrite,Urine Negative (Negative); Protein,Urine 100 mg/dL (Neg-Trace); Specific Gravity,Urine 1.025 (1.010-1.025); Urobilinogen,Urine Normal (Normal)
[2017-03-09 13:38] LABS: Bacteria,Urine Few per hpf (None-Few); Hyaline Casts,Urine None Seen per lpf (None-Few); Squamous Epithelial Cell,Urine Many per lpf (None-Few); WBC,Urine TNTC per hpf (0-3)
[2017-03-09 13:40] LABS: Clarity,Urine Slightly Hazy (Clear)
[2017-03-09] MEDS ORDERED: *HR* Promethazine 25 MG/ML VIAL IVP ONE (14:09)
[2017-03-09] MEDS ORDERED: *HR* HYDROmorphone (PF) 1 MG/ML SYRINGE IVP ONE (14:09)
[2017-03-09] MEDS ORDERED: *HR* Dextrose 50 % in Water (Syg) 50 ML SYRINGE IVP PRN ×2 (14:12→14:43)
[2017-03-09] MEDS ORDERED: Insulin Human Regular 150 UNIT in 0.9 % Sodium Chloride 150 ML IVC SCH (14:15)
[2017-03-09] MEDS ORDERED: Insulin Regular, Human 100 UNIT/ML IV PRN (14:43)
[2017-03-09] MEDS: SODIUM CHLORIDE 0.9% IVC SCH (15:25)
[2017-03-09] MEDS: INSULIN HUMAN REGULAR IVC SCH (15:25)
[2017-03-09] MEDS ORDERED: *HR* Promethazine 25 MG/ML VIAL IVP PRN (15:25)
[2017-03-09] MEDS ORDERED: Naloxone 0.4 MG/ML INJ IVP PRN (15:25)
--- NOTE | 2017-03-09 15:37 | Internal Med History&Physical ---
<Deshawn Pyle - Last Filed: 03/09/17 17:58> Date of Encounter: 03/09/17 Time of Encounter: 15:31 Assessment and Plan (1) DKA (diabetic ketoacidoses) Current visit: Yes Status: Resolved Hyperglycemia, acidemia, ketones in urine, anion gap of 16. Has had multiple episodes of DKA. UA positive for leuk esterase, UTI presumptive cause of DKA. Sodium of 137 potassium of 4.6-start 0.45 saline with 20 of potassium per protocol start insulin drip, with appropriate IV fluid replacement per protocol Electrolyte replacement protocol every 6 hours Nothing by mouth Every hour Accu-Cheks Start subcutaneous insulin once anion gap is less than 11 Continuous telemetry, continuous O2 monitoring Qualifiers: Diabetes mellitus type: type 1 Diabetes mellitus complication detail: without coma Qualified Code(s): E10.10 - Type 1 diabetes mellitus with ketoacidosis without coma (2) UTI (urinary tract infection) Current visit: Yes Status: Acute Diffuse abdominal pain, increased urinary frequency and urgency with decreased urinary output. UA reveals positive leukesterase Start Rocephin 1 g IV piggyback daily Qualifiers: Urinary tract infection type: acute cystitis Hematuria presence: without hematuria Qualified Code(s): N30.00 - Acute cystitis without hematuria (3) Nausea & vomiting Current visit: Yes Status: Acute Nausea and vomiting secondary to DKA. Continue with aggressive rehydration and given antiemetics Qualifiers: Vomiting type: unspecified Vomiting Intractability: non-intractable Qualified Code(s): R11.2 - Nausea with vomiting, unspecified (4) Diabetes mellitus type 1 Current visit: Yes Status: Chronic Stop sliding scale coverage for now. Implement insulin drip per DKA protocol see plan above Qualifiers: Diabetes mellitus complication status: with ketoacidosis Diabetes mellitus complication detail: without coma Qualified Code(s): E10.10 - Type 1 diabetes mellitus with ketoacidosis without coma (5) Hypertension Current visit: Yes Status: Acute History of hypertension. Blood pressure is currently stable. Continue to monitor, resume home blood pressure medications Qualifiers: Hypertension type: unspecified secondary hypertension Qualified Code(s): I15.9 - Secondary hypertension, unspecified; I15 - Secondary hypertension Internal Medicine - H&P: HPI Chief complaint: DKA, UTI Admitted From: Home Plans for Post Hospital Care: Home History of present illness: Ms. Sierra is a 31 year old female with a PMH of diabetes, arthritis, cirrhosis , GERD, glaucoma, HLD, HTN, osteoporosis and anxiety. Presents today with ongoing vomiting which began last night. Additionally she reports fatigue, weakness, chills, and subjective fevers, abdominal pain, urinary frequency and urgency. She reports multiple past episodes of DKA. Workup in the ED revealed hyperglycemia, acidosis and ketones with an anion gap of 16 and a UA positive for leukesterase. Past Med Surg Social Fam HX - Past Medical History Medical history: arthritis, cirrhosis, diabetes, GERD, glaucoma, hyperlipidemia , hypertension, liver disease, osteoporosis Psychiatric history: anxiety - Past Surgical History Surgical History: appendectomy, , cholecystectomy, sinus surgery, other - Social History Smoking Status: Never smoker Smokeless Tobacco Status: No Alcohol use: none Drug use: cocaine - Family History Grandmother Family Member Ethnicity: Non- Living Status: Still Living Hx Family Cardiac Disorders: No Hx Family Respiratory Disorders: No Hx Family Cancer: No Hx Family GI Disorders: No Hx Family Endocrine Disorder: Yes (type 2 diabetes) Hx Family Neuromuscular Disorders: No Hx Family Neurologic Disorders: Yes (stroke) Hx Family HEENT Disorders: No Hx Family Autoimmune Disorders: No Internal Medicine - H&P: Meds LORazepam [Ativan] 1 mg PO BID #6 12/18/16 [Rx] Metoprolol [Lopressor] 25 mg PO BID #60 tablet 12/18/16 [Rx] Insulin ASPART [NovoLOG] 10 unit SQ TIDWM PRN 03/09/17 [History] Insulin Glargine,Hum.rec.anlog [Lantus Solostar] 20 unit SQ BID 03/09/17 [ History] Sodium Bicarbonate 650 mg PO DAILY 03/09/17 [History] 3 Allergy/AdvReac Type Severity Reaction Status Date / Time hydrocodone Allergy Hives Verified 12/13/16 12:28 All Systems PM: A 10-system review of systems was performed and is negative for pertinent findings except as documented above in the HPI. - Constitutional Constitutional: as per HPI - Cardiovascular Cardiovascular ROS IM: no chest pain, no diaphoresis, no dyspnea, no lightheadedness, no palpitations, no syncope - Respiratory Respiratory: dyspnea, no cough, no wheezing, no excessive phlegm production - Gastrointestinal Gastrointestinal: abdominal pain, nausea, vomiting, no coffee ground emesis, no constipation, no diarrhea, no hematemesis, no hematochezia, no melena - Genitourinary Genitourinary: urinary hesitancy, urinary urgency, no dysuria, no flank pain, no urinary incontinence Additional comments: With decreased output - Musculoskeletal Musculoskeletal ROS IM: no numbness, no tingling - Integumentary Integumentary IM: no rash, no unusual bruising - Neurological Neurological ROS: no confusion, no convulsions, no focal weakness, no headache(s ), no numbness, no tingling, no tremor(s) - Constitutional Vitals: Temp Pulse Resp BP Pulse Ox 98.5 F 108 18 115/65 97 03/09/17 12:34 03/09/17 14:22 03/09/17 14:22 03/09/17 14:22 03/09/17 14:22 General appearance: Present: cooperative, mild distress, A&O X 3, answers questions appropriately - Head Head exam: Present: atraumatic, normocephalic - Respiratory Respiratory exam: Present: CTAB. Absent: accessory muscle use, rales, rhonchi, wheezes - Cardiovascular Cardiovascular exam: Present: RRR, +S1, +S2, tachycardia. Absent: diastolic murmur, gallop, rubs, systolic murmur - GI/Abdominal GI/Abdominal exam: Present: normal bowel sounds, soft, tenderness (LUQ, RLQ). Absent: distended, guarding, hepatomegaly, rebound, splenomegaly - Extremities Exam Extremities exam: Present: warm, radial pulses palpable and symmetrical. Absent : calf tenderness, cyanotic, pedal edema - Skin Skin exam: Present: dry, intact Internal Med - H&P Results - Labs CBC & Chem 7: 03/09/17 13:00 03/09/17 17:08 - Diagnostic Studies Chest x-ray Status: image reviewed by me Additional comments: No Acute pulmonary process <Ajay Mckay P - Last Filed: 03/10/17 12:09> Date of Encounter: 03/10/17 Internal Medicine - H&P: HPI History of present illness: Ms. Sierra is a 31 year old female All Systems PM: A 10-system review of systems was performed and is negative for pertinent findings except as documented above in the HPI. - Constitutional Vitals: Temp Pulse Resp BP Pulse Ox 98.4 F 102 16 125/93 98 03/10/17 10:35 03/10/17 10:35 03/10/17 10:35 03/10/17 10:35 03/10/17 10:35 Internal Med - H&P Results - Labs CBC & Chem 7: 03/10/17 03:53 03/10/17 10:18 Labs: Short CBC 03/10/17 03/10/17 Range/Units 00:50 03:53 WBC 9.5 8.6 (4.3-11.1) K/mcL Hgb 12.4 9.9 L D (11.5-15.4) g/dL Hct 39.0 31.0 L (35.3-44.9) % Plt Count 340 298 (140-400) K/mcL Neutrophils # 5.0 5.1 (1.6-8.9) K/mcL BMP 03/09/17 03/09/17 03/10/17 17:08 22:18 03:53 Sodium 138 136 136 Potassium 4.2 4.2 4.0 Chloride 109 111 H 111 H Carbon Dioxide 12 L 19 17 L BUN Creatinine Glucose Calcium 03/10/17 10:18 Sodium 136 Potassium 4.8 H Chloride 111 H Carbon Dioxide 17 L BUN 6 L D Creatinine 0.82 Glucose 193 H Calcium 7.4 L D - ABG Interpretation ABG results: 03/10/17 03/10/17 03/10/17 01:07 04:08 10:28 VBG pH 7.24 L 7.27 L 7.28 L VBG pCO2 50 40 L 38 L VBG pO2 154 H 172 H 78 H VBG HCO3 21 19 L 18 L - Attending Attestation I examined this patient and my medical decision-making was reviewed with the Resident Physician/MANAGER VEHICLE. I agree with the documented findings, disposition and treatment plan as described except to the extent set forth below. agree with below treat UTI aggressively possible transfer to floor if CBG under control.
[2017-03-09] MEDS: 0.45 % Sodium Chloride w/KCl 20 MEQ/1,000 ML MLS IVC SCH ×3 (15:52→18:17)
[2017-03-09] MEDS: cefTRIAXone 1,000 MG in Water for inj. (sterile) 10 ML IVP SCH (17:24)
[2017-03-09 17:26] LABS: Potassium 4.2 mEq/L (3.5-4.5)
[2017-03-09] MEDS: D5% in 0.45% NACL w KCl 20 MEQ/1,000 ML MLS IVC PRN ×2 (18:12→22:11)
[2017-03-09] MEDS: *HR* HYDROmorphone (PF) 1 MG/ML SYRINGE IVP PRN (20:14)
[2017-03-09] MEDS: Ondansetron 4 MG/2 ML VIAL IVP PRN (20:14)
[2017-03-09 22:46] LABS: Potassium 4.2 mEq/L (3.5-4.5)
[2017-03-10 00:58] LABS: Basophils # 0.1 K/mcL (0.0-0.2); Basophils % 0.9 %; Eosinophils # 0.3 K/mcL (0.0-0.6); Eosinophils % 2.8 %; Hemoglobin 12.4 g/dL (11.5-15.4); Immature Granulocytes % 0.4 % (0-4); Lymphocytes # 3.6 K/mcL (0.6-4.6); Lymphocytes % 37.5 %; Mean Corpuscular HGB Conc 31.8 g/dL (31.6-35.5); Mean Corpuscular Hemoglobin 30.8 pg (28.0-33.3); Mean Corpuscular Volume 96.8 fL (83.0-100.0); Mean Platelet Volume 9.6 fL (9.4-12.4); Monocytes # 0.5 K/mcL (0.0-1.3); Monocytes % 5.4 %; Platelet Count 340 K/mcL (140-400); Red Blood Count 4.03 M/mcL (3.82-4.97); Red Cell Distribution Width 12.5 % (11.5-14.5)
[2017-03-10 01:10] LABS: VBG HCO3 21 mEq/L (21-27); VBG PCO2 50 mmHg (41-51); VBG PH 7.24 pH Units (7.32-7.42); VBG PO2 154 mmHg (25-50)
[2017-03-10] MEDS: *HR* HYDROmorphone (PF) 1 MG/ML SYRINGE IVP PRN ×5 (02:06→21:47)
[2017-03-10] MEDS: D5% in 0.45% NACL w KCl 20 MEQ/1,000 ML MLS IVC PRN ×3 (02:07→10:30)
[2017-03-10 04:06] LABS: Basophils % 0.5 %; Eosinophils # 0.3 K/mcL (0.0-0.6); Eosinophils % 2.9 %; Immature Granulocytes % 0.6 % (0-4); Immature Platelets 1.8 % (1.1-6.1); Lymphocytes # 2.7 K/mcL (0.6-4.6); Lymphocytes % 31.1 %; Mean Corpuscular HGB Conc 31.9 g/dL (31.6-35.5); Mean Corpuscular Hemoglobin 30.7 pg (28.0-33.3); Mean Platelet Volume 9.4 fL (9.4-12.4); Monocytes # 0.5 K/mcL (0.0-1.3); Monocytes % 5.4 %; Neutrophils # 5.1 K/mcL (1.6-8.9); Platelet Count 298 K/mcL (140-400); Red Blood Count 3.23 M/mcL (3.82-4.97); Red Cell Distribution Width 12.5 % (11.5-14.5); Segmented Neutrophils % 59.5 %
[2017-03-10 04:07] LABS: Hemoglobin 9.9 g/dL (11.5-15.4)
[2017-03-10 04:11] LABS: VBG HCO3 19 mEq/L (21-27); VBG PCO2 40 mmHg (41-51); VBG PH 7.27 pH Units (7.32-7.42); VBG PO2 172 mmHg (25-50)
[2017-03-10] MEDS: *HR* Enoxaparin 40 MG/0.4 ML SYRINGE SQ SCH (05:01)
[2017-03-10] MEDS: Ondansetron 4 MG/2 ML VIAL IVP PRN (07:21)
[2017-03-10] MEDS: cefTRIAXone 1,000 MG in Water for inj. (sterile) 10 ML IVP SCH (07:21)
[2017-03-10 10:33] LABS: VBG HCO3 18 mEq/L (21-27); VBG PCO2 38 mmHg (41-51); VBG PH 7.28 pH Units (7.32-7.42); VBG PO2 78 mmHg (25-50)
[2017-03-10 10:36] LABS: BUN/Creatinine Ratio 7 (6-26); Carbon Dioxide 17 mEq/L (19-29); Chloride 111 mEq/L (98-109); Glucose 193 mg/dL (70-99); Osmolality,Calculated 285 (280-300); Potassium 4.8 mEq/L (3.5-4.5); Sodium 136 mEq/L (136-145); eGFR For African Americans > 60 (> 60); eGFR For Non-African Americans > 60 (> 60)
[2017-03-10 10:37] LABS: Blood Urea Nitrogen 6 mg/dL (7-20); Calcium 7.4 mg/dL (8.6-10.8)
[2017-03-10 14:16] LABS: BUN/Creatinine Ratio 7 (6-26); Calcium 7.7 mg/dL (8.6-10.8); Carbon Dioxide 21 mEq/L (19-29); Chloride 115 mEq/L (98-109); Glucose 93 mg/dL (70-99); Osmolality,Calculated 287 (280-300); Potassium 4.3 mEq/L (3.5-4.5); Sodium 140 mEq/L (136-145); eGFR For African Americans > 60 (> 60); eGFR For Non-African Americans > 60 (> 60)
[2017-03-10 14:17] LABS: Blood Urea Nitrogen 5 mg/dL (7-20)
[2017-03-10 14:27] LABS: VBG HCO3 22 mEq/L (21-27); VBG PCO2 43 mmHg (41-51); VBG PH 7.32 pH Units (7.32-7.42); VBG PO2 104 mmHg (25-50)
[2017-03-10] MEDS ORDERED: Ondansetron 4 MG/2 ML VIAL IVP PRN (15:15)
[2017-03-10] MEDS ORDERED: Insulin DETEMIR 100 UNIT/ML X5UNITS SQ ONE (15:24)
--- NOTE | 2017-03-10 15:34 | Internal Med Progress Note ---
<Elvin Orellana - Last Filed: 03/10/17 15:43> Date of Encounter: 03/10/17 Time of Encounter: 09:50 - Assessment and plan (1) DKA (diabetic ketoacidoses) Current Visit: Yes Status: Acute Assessment and plan: Gap of 16, now closed. DKA likely secondary to UTI, on Rocephin. Currently on DKA protocol - IV Fluid replacement, insulin, electrolyte repletion Will transition from drip to basal and ACHS once gap <12, pH >7.3 VBG, BS <250, CO2>18. Qualifiers: Diabetes mellitus type: type 1 Diabetes mellitus complication detail: without coma Qualified Code(s): E10.10 - Type 1 diabetes mellitus with ketoacidosis without coma (2) UTI (urinary tract infection) Current Visit: Yes Status: Acute Assessment and plan: On Rocephin 1g IVPB daily Monitor symptoms, pt reports improving abdominal pain and urinary output. Qualifiers: Urinary tract infection type: acute cystitis Hematuria presence: without hematuria Qualified Code(s): N30.00 - Acute cystitis without hematuria (3) Nausea & vomiting Current Visit: Yes Status: Acute Assessment and plan: Continue DKA protocol, Zofran. Qualifiers: Vomiting type: unspecified Vomiting Intractability: non-intractable Qualified Code(s): R11.2 - Nausea with vomiting, unspecified (4) Diabetes mellitus type 1 Current Visit: Yes Status: Chronic Assessment and plan: Chronic process with DKA protocol as above, multiple past episodes. Qualifiers: Diabetes mellitus complication status: with ketoacidosis Diabetes mellitus complication detail: without coma Qualified Code(s): E10.10 - Type 1 diabetes mellitus with ketoacidosis without coma (5) Hypertension Current Visit: Yes Status: Acute Assessment and plan: Pt normotensive, not currently on antihypertensives. Qualifiers: Hypertension type: unspecified secondary hypertension Qualified Code(s): I15.9 - Secondary hypertension, unspecified - Subjective Interval history: PMH: DM2, HLD, HN, cirrhosis Interval: Presented to ED with n/v, fatigue, abdominal pain. DKA with gap of 16 on ED workup, UA positive for leukeserase. DKA protocol initiated. Today: Pt feels fatigued but improved since yesterday, Zofran has helped with the remaining nausea. Persistent abdominal pain, alleviated with bowel rest and current pain management regimen. Pt reports less urinary symptoms now on Rocephin. - Constitutional Vitals: Temp Pulse Resp BP Pulse Ox 98.4 F 102 16 125/93 98 03/10/17 10:35 03/10/17 10:35 03/10/17 10:35 03/10/17 10:35 03/10/17 10:35 General appearance: Present: cooperative, mild distress, A&O X 3, answers questions appropriately - Head Head exam: Present: atraumatic - Neck Neck exam general surgery: Present: full ROM. Absent: thyromegaly - Respiratory Respiratory exam: Present: CTAB. Absent: chest wall tenderness - Cardiovascular Cardiovascular exam: Present: RRR, +S1, +S2. Absent: systolic murmur - GI/Abdominal GI/Abdominal exam: Present: no peritoneal signs. Absent: hepatomegaly, rigid Internal Medicine: Result - Labs CBC & Chem 7: 03/10/17 03:53 03/10/17 13:55 Labs: Short CBC 03/10/17 03/10/17 Range/Units 00:50 03:53 WBC 9.5 8.6 (4.3-11.1) K/mcL Hgb 12.4 9.9 L D (11.5-15.4) g/dL Hct 39.0 31.0 L (35.3-44.9) % Plt Count 340 298 (140-400) K/mcL Neutrophils # 5.0 5.1 (1.6-8.9) K/mcL BMP 03/09/17 03/09/17 03/10/17 17:08 22:18 03:53 Sodium 138 136 136 Potassium 4.2 4.2 4.0 Chloride 109 111 H 111 H Carbon Dioxide 12 L 19 17 L BUN Creatinine Glucose Calcium 03/10/17 03/10/17 10:18 13:55 Sodium 136 140 Potassium 4.8 H 4.3 Chloride 111 H 115 H Carbon Dioxide 17 L 21 BUN 6 L D 5 L Creatinine 0.82 0.73 Glucose 193 H 93 Calcium 7.4 L D 7.7 L Consult Discharge Plan - Plan Referrals: Zehra Jamison, VENDETTE [Primary Care Provider] - <Alli Turner - Last Filed: 03/10/17 18:41> Date of Encounter: 03/10/17 - Assessment and plan (1) DKA (diabetic ketoacidoses) Current Visit: Yes Status: Acute Qualifiers: Diabetes mellitus type: type 1 Diabetes mellitus complication detail: without coma Qualified Code(s): E10.10 - Type 1 diabetes mellitus with ketoacidosis without coma (2) UTI (urinary tract infection) Current Visit: Yes Status: Acute Qualifiers: Urinary tract infection type: acute cystitis Hematuria presence: without hematuria Qualified Code(s): N30.00 - Acute cystitis without hematuria (3) Hypertension Current Visit: Yes Status: Acute Qualifiers: Hypertension type: essential hypertension Qualified Code(s): I10 - Essential (primary) hypertension (4) Diabetes mellitus type 1 Current Visit: Yes Status: Chronic Qualifiers: Diabetes mellitus complication status: with ketoacidosis Diabetes mellitus complication detail: without coma Qualified Code(s): E10.10 - Type 1 diabetes mellitus with ketoacidosis without coma (5) 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 (6) Chronic pain Current Visit: No Status: Chronic Qualifiers: Chronic pain type: chronic pain syndrome Qualified Code(s): G89.4 - Chronic pain syndrome - Constitutional Vitals: Temp Pulse Resp BP Pulse Ox 98.3 F 100 18 125/86 99 03/10/17 15:38 03/10/17 15:38 03/10/17 15:38 03/10/17 15:38 03/10/17 15:38 Internal Medicine: Result - Labs CBC & Chem 7: 03/10/17 03:53 03/10/17 13:55 Labs: Short CBC 03/10/17 03/10/17 Range/Units 00:50 03:53 WBC 9.5 8.6 (4.3-11.1) K/mcL Hgb 12.4 9.9 L D (11.5-15.4) g/dL Hct 39.0 31.0 L (35.3-44.9) % Plt Count 340 298 (140-400) K/mcL Neutrophils # 5.0 5.1 (1.6-8.9) K/mcL BMP 03/09/17 03/10/17 03/10/17 22:18 03:53 10:18 Sodium 136 136 136 Potassium 4.2 4.0 4.8 H Chloride 111 H 111 H 111 H Carbon Dioxide 19 17 L 17 L BUN 6 L D Creatinine 0.82 Glucose 193 H Calcium 7.4 L D 03/10/17 13:55 Sodium 140 Potassium 4.3 Chloride 115 H Carbon Dioxide 21 BUN 5 L Creatinine 0.73 Glucose 93 Calcium 7.7 L - Attending Attestation I examined this patient and my medical decision-making was reviewed with the Resident Physician on 03/10/17. I agree with the documented findings, disposition and treatment plan as described except to the extent set forth below. Ms Sierra is currently admitted for acute DKA. She remains moderate to high risk due to potential for worsening clinical status. Ms Sierra feels "blah." She denies CP or SOB. Feels somewhat hungry. No fever or chills. On abx for UTI. Still on insulin drip transitioning to subqu insulin. Exam Alert. Comfortable Mucus membranes dry Heart reg No wheeze Abd soft and nontender No edema I/P 1. DKA 2. UTI Further diagnoses and plan as above
[2017-03-10] MEDS: Insulin LISPRO 300 UNITS/3 ML VIAL SQ SCH ×2 (16:46→21:45)
[2017-03-10] MEDS: Insulin DETEMIR 100 UNIT/ML X5UNITS SQ SCH (21:45)
[2017-03-11] MEDS: *HR* HYDROmorphone (PF) 1 MG/ML SYRINGE IVP PRN ×5 (03:13→22:24)
[2017-03-11] MEDS: *HR* Enoxaparin 40 MG/0.4 ML SYRINGE SQ SCH (05:25)
[2017-03-11 06:38] LABS: BUN/Creatinine Ratio 6 (6-26); Calcium 8.3 mg/dL (8.6-10.8); Carbon Dioxide 21 mEq/L (19-29); Chloride 111 mEq/L (98-109); Glucose 102 mg/dL (70-99); Osmolality,Calculated 287 (280-300); Potassium 4.4 mEq/L (3.5-4.5); Sodium 140 mEq/L (136-145); eGFR For African Americans > 60 (> 60); eGFR For Non-African Americans > 60 (> 60)
[2017-03-11 06:41] LABS: Blood Urea Nitrogen 4 mg/dL (7-20)
[2017-03-11] MEDS: INSULIN HUMAN REGULAR IVC SCH ×2 (07:11→15:56)
[2017-03-11] MEDS: SODIUM CHLORIDE 0.9% IVC SCH ×2 (07:11→15:56)
[2017-03-11] MEDS: Insulin LISPRO 300 UNITS/3 ML VIAL SQ SCH ×4 (07:48→20:10)
[2017-03-11] MEDS: cefTRIAXone 1,000 MG in Water for inj. (sterile) 10 ML IVP SCH (10:24)
[2017-03-11] MEDS: Insulin DETEMIR 100 UNIT/ML X5UNITS SQ SCH ×2 (12:46→20:10)
--- NOTE | 2017-03-11 15:30 | Internal Med Progress Note ---
Date of Encounter: 03/11/17 Time of Encounter: 11:00 - Assessment and plan (1) DKA (diabetic ketoacidoses) Current Visit: Yes Status: Acute Assessment and plan: Resolved. She is acutally hypoglycemic today. Continue to monitor blood sugars. Qualifiers: Diabetes mellitus type: type 1 Diabetes mellitus complication detail: without coma Qualified Code(s): E10.10 - Type 1 diabetes mellitus with ketoacidosis without coma (2) UTI (urinary tract infection) Current Visit: Yes Status: Acute Assessment and plan: On Rocephin 1g IVPB daily Urine culture sensitivities show good coverage. Qualifiers: Urinary tract infection type: acute cystitis Hematuria presence: without hematuria Qualified Code(s): N30.00 - Acute cystitis without hematuria (3) Diabetes mellitus type 1 Current Visit: Yes Status: Chronic Assessment and plan: DKA has resolved. She is not eating well. Will start IV with D5 Qualifiers: Diabetes mellitus complication status: with hypoglycemia Diabetes mellitus complication detail: without coma Qualified Code(s): E10.649 - Type 1 diabetes mellitus with hypoglycemia without coma (4) Hypertension Current Visit: Yes Status: Acute Assessment and plan: Pt normotensive, not currently on antihypertensives. Qualifiers: Hypertension type: essential hypertension Qualified Code(s): I10 - Essential (primary) hypertension (5) 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 Assessment and plan: Continue routine meds. (6) Chronic pain Current Visit: No Status: Chronic Assessment and plan: Chronic issue Qualifiers: Chronic pain type: chronic pain syndrome Qualified Code(s): G89.4 - Chronic pain syndrome - Subjective Interval history: Ms. Sierra is currently in observation for UTI and DKA. She has been very hypoglycemic today due to poor PO intake. She remains moderate to high risk due to potential for worsening clinical status. Ms Sierra says she still feels terrible. No CP or SOB. No abd pain. No fever or chills. Blood sugar has been low because she has not been eating much. She is on IV abx for UTI. - Constitutional Vitals: Temp Pulse Resp BP Pulse Ox 98.3 F 104 16 145/96 99 03/11/17 11:33 03/11/17 11:33 03/11/17 11:33 03/11/17 11:33 03/11/17 11:33 General appearance: Present: cooperative, A&O X 3, answers questions appropriately - Head Head exam: Present: atraumatic, normocephalic - Eye Eye exam: Present: EOMI, conjuntiva pink - ENT ENT exam: Present: mucous membranes dry - Neck Neck exam general surgery: Absent: lymphadenopathy, thyromegaly - Respiratory Respiratory exam: Present: decreased breath sounds. Absent: rales, rhonchi, wheezes - Cardiovascular Cardiovascular exam: Present: tachycardia. Absent: systolic murmur - GI/Abdominal GI/Abdominal exam: Present: soft. Absent: mass, tenderness - Extremities Exam Extremities exam: Present: warm. Absent: tenderness - Neurological Exam Neurological exam: Present: alert, oriented X3, no focal deficits - Skin Skin exam: Present: dry, warm. Absent: rash Internal Medicine: Result - Labs CBC & Chem 7: 03/10/17 03:53 03/11/17 05:55 Labs: BMP 03/11/17 05:55 Sodium 140 Potassium 4.4 Chloride 111 H Carbon Dioxide 21 BUN 4 L Creatinine 0.71 Glucose 102 H Calcium 8.3 L Consult Discharge Plan - Plan Referrals: Zehra Jamison, CREDIT INTERVIEWER [Primary Care Provider] -
[2017-03-11] MEDS ORDERED: DEXTROSE 5 % IN WATER 50 ML PGGYBK.PRT IV SCH (17:00)
[2017-03-11] MEDS ORDERED: D5% in Water 1,000 ML IVC SCH (17:15)
[2017-03-12] MEDS: *HR* HYDROmorphone (PF) 1 MG/ML SYRINGE IVP PRN ×2 (02:15→06:11)
[2017-03-12] MEDS: *HR* Enoxaparin 40 MG/0.4 ML SYRINGE SQ SCH (06:12)
[2017-03-12] MEDS: Insulin LISPRO 300 UNITS/3 ML VIAL SQ SCH (07:39)
[2017-03-12] MEDS ORDERED: *HR* OxyCODONE Immed Rel 5 MG TABLET PO PRN (07:51)
[2017-03-12] MEDS: Insulin DETEMIR 100 UNIT/ML X5UNITS SQ SCH (08:32)
[2017-03-12] MEDS: cefTRIAXone 1,000 MG in Water for inj. (sterile) 10 ML IVP SCH (08:32)
--- NOTE | 2017-03-12 09:17 | Discharge Summary ---
Date of Encounter: 03/12/17 Time of Encounter: 09:13 - Discharge Diagnosis (1) DKA (diabetic ketoacidoses) Priority: Primary Status: Acute Qualifiers: Diabetes mellitus type: type 1 Diabetes mellitus complication detail: without coma Qualified Code(s): E10.10 - Type 1 diabetes mellitus with ketoacidosis without coma (2) UTI (urinary tract infection) Priority: Primary Status: Acute Qualifiers: Urinary tract infection type: acute cystitis Hematuria presence: without hematuria Qualified Code(s): N30.00 - Acute cystitis without hematuria (3) Diabetes mellitus type 1 Priority: Secondary Status: Resolved Qualifiers: Diabetes mellitus complication status: with hypoglycemia Diabetes mellitus complication detail: without coma Qualified Code(s): E10.649 - Type 1 diabetes mellitus with hypoglycemia without coma (4) Hypertension Priority: Secondary Status: Chronic Qualifiers: Hypertension type: essential hypertension Qualified Code(s): I10 - Essential (primary) hypertension (5) Gastroparesis diabeticorum Priority: Secondary Status: Chronic (6) Chronic pain Priority: Secondary Status: Chronic Qualifiers: Chronic pain type: chronic pain syndrome Qualified Code(s): G89.4 - Chronic pain syndrome - Discharge Medications Prescriptions: OxyCODONE Immed Rel [Roxicodone 5 MG] 5 mg PO Q6HR PRN #20 tablet PRN Reason: Severe Pain Cefdinir [Omnicef] 300 mg PO BID #6 capsule Insulin ASPART [NovoLOG] 10 unit SQ TIDWM PRN #5 vial PRN Reason: SLIDING SCALE Phenazopyridine [Pyridium] 100 mg PO TID PRN #20 tablet PRN Reason: Bladder spasm Home Medications: LORazepam [Ativan] 1 mg PO BID #6 12/18/16 [Rx] Metoprolol [Lopressor] 25 mg PO BID #60 tablet 12/18/16 [Rx] Insulin Glargine,Hum.rec.anlog [Lantus Solostar] 20 unit SQ BID 03/09/17 [ History] Sodium Bicarbonate 650 mg PO DAILY 03/09/17 [History] Cefdinir [Omnicef] 300 mg PO BID #6 capsule 03/12/17 [Rx] Insulin ASPART [NovoLOG] 10 unit SQ TIDWM PRN #5 vial 03/12/17 [Rx] OxyCODONE Immed Rel [Roxicodone 5 MG] 5 mg PO Q6HR PRN #20 tablet 03/12/17 [Rx] Phenazopyridine [Pyridium] 100 mg PO TID PRN #20 tablet 03/12/17 [Rx] Allergies/Adverse Reactions: 3 Allergy/AdvReac Type Severity Reaction Status Date / Time hydrocodone Allergy Hives Verified 12/13/16 12:28 Date of admission: 03/09/17 15:24 Primary care physician: Zehra Jamison Discharging clinician: Alli Turner Anticipated date of discharge: 03/12/17 - Patient Status Disposition: Home, Self-Care Condition: Fair Functional capacity at discharge: independent ambulation Overall status at discharge: patient is progressing back to baseline - Discharge Instructions Follow Up With: Zehra Jamison, DIRECTOR OF PHYSIOTHERAPY SERVICES [Primary Care Provider] - - Diet and Activity Activity: increase activity as tolerated Diet: diabetic diet Hospital course: Ms. Sierra is a 31 year old female with hx of insulin dep DM and prior DKA presented to ED with nausea and vomiting. Found to be in DKA due to presumptive UTI. She was admitted for further evaluation and treatment. Ms Sierra was placed in the hospital for DKA and UTI. She was placed on DKA protocol and her acidosis ultimately resolved. UTI was treated with IV Rocephin. IV fluids were continued. She had slow resolution of symptoms and on 03/11 still was tachycardic and had significant malaise. She was continued on IV abx and supportive care. On the morning of 03/12 she was feeling better overall. She still had some dysuria but was improving. She was afebrile and vitals were stable. At that time she was felt ready for discharge home. She will be discharged on PO abx to complete 7 days, pyridium as well as a small amount of oxycodone. She was also given prescription for refill of Novalog. She will follow with PCP in 1-2 weeks. - Time Spent with Patient Total time spent providing and/or coordinating discharge services: 38min - Constitutional Vitals: Temp Pulse Resp BP Pulse Ox 97.9 F 101 18 141/100 98 03/12/17 07:21 03/12/17 07:21 03/12/17 07:21 03/12/17 07:21 03/12/17 07:21 General appearance: Present: cooperative, A&O X 3, answers questions appropriately - Head Head exam: Present: atraumatic, normocephalic - Eye Eye exam: Present: EOMI, PERRL, conjuntiva pink - ENT ENT exam: Present: mucous membranes moist - Respiratory Respiratory exam: Present: CTAB. Absent: rales, rhonchi, wheezes - Cardiovascular Cardiovascular exam: Present: RRR. Absent: systolic murmur, tachycardia - GI/Abdominal GI/Abdominal exam: Present: soft. Absent: tenderness - Extremities Exam Extremities exam: Present: warm. Absent: tenderness - Neurological Exam Neurological exam: Present: alert, oriented X3, no focal deficits - Skin Skin exam: Present: dry, warm. Absent: rash
[2017-03-12 12:00] VITALS: BP 135/97
== END 2017-03-12 13:32 | disposition home or self-care (01) ==
LOC: EMEROO 12:34 → 2NNU 12:34
PROVIDERS: ADMIT Internal Medicine; ATTEND Internal Medicine

== ENCOUNTER 2017-04-23 11:00 | Inpatient (IN) ==
[2017-04-23] MEDS: 0.9 % Sodium Chloride 1,000 ML IVC ONE ×2 (11:22→13:44)
[2017-04-23 11:24] LABS: Mixed Venous Blood pCO2 < 13 mmHg (44-46); Mixed Venous Blood pH 6.95 pH Units (7.34-7.36); Mixed Venous Blood pO2 157 mmHg (35-45)
[2017-04-23] MEDS ORDERED: *HR* Dextrose 50 % in Water (Syg) 50 ML SYRINGE IVP PRN ×2 (11:29→14:26)
[2017-04-23] MEDS ORDERED: Insulin Human Regular 100 UNIT in 0.9 % Sodium Chloride 100 ML IVC SCH ×2 (11:30→14:30)
[2017-04-23] MEDS ORDERED: 0.9 % Sodium Chloride 1,000 ML IVC ONE ×2 (11:31→13:37)
[2017-04-23 11:46] LABS: Basophils # 0.1 K/mcL (0.0-0.2); Basophils % 0.4 %; Eosinophils % 0.1 %; Hematocrit 31.1 % (35.3-44.9); Hemoglobin 9.6 g/dL (11.5-15.4); Immature Granulocytes % 1.6 % (0-4); Lymphocytes % 8.8 %; Mean Corpuscular HGB Conc 30.9 g/dL (31.6-35.5); Mean Corpuscular Hemoglobin 30.2 pg (28.0-33.3); Mean Corpuscular Volume 97.8 fL (83.0-100.0); Mean Platelet Volume 10.1 fL (9.4-12.4); Monocytes # 1.6 K/mcL (0.0-1.3); Monocytes % 7.1 %; Neutrophils # 18.7 K/mcL (1.6-8.9); Platelet Count 476 K/mcL (140-400); Red Blood Count 3.18 M/mcL (3.82-4.97); Red Cell Distribution Width 11.7 % (11.5-14.5)
[2017-04-23 11:54] LABS: INR 1.1; Prothrombin Time 11.6 Seconds (9.4-12.1)
[2017-04-23 11:54] LABS: Bilirubin,Urine Negative (Negative); Blood,Urine Moderate (Negative); Clarity,Urine Clear (Clear); Color,Urine Yellow (Yellow); Glucose,Urine (UA) >=1000 mg/dL (Normal); Ketones,Urine >=160 mg/dL (Negative); Leukocyte Esterase,Urine Negative (Negative); Nitrite,Urine Negative (Negative); Protein,Urine 30 mg/dL (Neg-Trace); Specific Gravity,Urine 1.029 (1.010-1.025); Urobilinogen,Urine Normal (Normal)
[2017-04-23 11:56] LABS: Bacteria,Urine Few per hpf (None-Few); Hyaline Casts,Urine None Seen per lpf (None-Few); RBC,Urine 0-3 per hpf (0-3); Squamous Epithelial Cell,Urine Many per lpf (None-Few)
[2017-04-23 12:08] LABS: Alanine Aminotransferase 8 Units/L (7-52); Albumin 2.4 g/dL (3.5-5.7); Albumin/Globulin Ratio 1.1 (1.1-2.2); Alkaline Phosphatase 116 Units/L (34-104); Aspartate Amino Transferase 10 Units/L (13-39); BUN/Creatinine Ratio 14 (6-26); Bilirubin,Indirect 0.1 mg/dL (0.0-1.2); Bilirubin,Total 0.1 mg/dL (0.3-1.0); Blood Urea Nitrogen 17 mg/dL (6-20); Calcium 5.8 mg/dL (8.6-10.3); Carbon Dioxide 2 mEq/L (23-29); Chloride 113 mEq/L (98-107); Globulin 2.2 g/dL (2.4-3.5); Glucose 676 mg/dL (70-105); Magnesium 1.7 mg/dL (1.6-2.6); Osmolality,Calculated 320 (280-300); Phosphorous 5.2 mg/dL (2.7-4.5); Potassium 5.1 mEq/L (3.5-5.1); Sodium 138 mEq/L (136-145); Total Protein 4.6 g/dL (6.4-8.9); eGFR For African Americans > 60 (> 60); eGFR For Non-African Americans 51 (> 60)
[2017-04-23 12:36] LABS: Beta-Hydroxybutyric Acid > 2.00 mmol/L (0.02-0.27)
[2017-04-23 12:48] LABS: Salicylate < 5.0 mg/dL (15.0-30.0)
[2017-04-23 13:28] LABS: VBG HCO3 4 mEq/L (21-27); VBG PCO2 19 mmHg (41-51); VBG PH 6.94 pH Units (7.32-7.42); VBG PO2 98 mmHg (25-50)
[2017-04-23 13:38] LABS: Calcium 7.9 mg/dL (8.6-10.3); Phosphorous 6.8 mg/dL (2.7-4.5); Potassium 6.7 mEq/L (3.5-5.1)
[2017-04-23] MEDS ORDERED: Piperacillin/Tazobactam 3.375 GM in D5% in Water (Mini-Bag+) 100 ML IVPB ONE (13:39)
[2017-04-23] MEDS ORDERED: Sodium Bicarbonate 150 MEQ in D5% in Water 1,000 ML IVC SCH (14:00)
--- NOTE | 2017-04-23 14:03 | Emergency Department Note ---
Disposition Clinical Impression: DKA (diabetic ketoacidoses) Qualifiers: Diabetes mellitus type: type 1 Diabetes mellitus complication detail: with coma Qualified Code(s): E10.11 - Type 1 diabetes mellitus with ketoacidosis with coma Disposition: Admitted As Inpatient Condition: Critical General Adult HPI - General Chief complaint: ED General Medical Stated complaint: unresponsive Time Seen by Provider: 04/23/17 11:05 Source: EMS Mode of arrival: EMS Limitations: no limitations Nursing Notes Reviewed: Yes Vital Signs Reviewed: Yes - History of Present Illness HPI Narrative: Patient presents by EMS as unresponsive. Tachycardic with a blood pressure systolically in the 130s. Patient is a known diabetic. From home. The house does have a reputation for recreational drug use. Patient's initial blood sugar reading greater than 500. Patient. Concern for DKA. Initial labs, IV access, fluids started. Mother called back saying that the patient had a cough that developed last night. The patient's symptoms continued to worsen into this morning where she noticed patient that was unresponsive. 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 The patient has not had a history of any intracranial abnormality. The mother has been notified of her critical condition. The mother states that she will be in when she is able to be there but has given us no expected time of arrival. Pain Scale: 0 - Related Data Home Medications Medication Instructions Recorded Confirmed Insulin ASPART [Novolog Flexpen] 2 - 10 unit SQ TIDWM 04/23/17 04/23/17 Insulin Glargine,Hum.rec.anlog 10 - 20 unit SQ HS 04/23/17 04/23/17 [Lantus Solostar] Lisinopril/Hydrochlorothiazide 1 tab PO DAILY 04/23/17 04/23/17 [Zestoretic 20-12.5 mg Tablet] Metoprolol [Lopressor] 25 mg PO BID 04/23/17 04/23/17 Sodium Bicarbonate 650 mg PO DAILY 04/23/17 04/23/17 Allergies Allergy/AdvReac Type Severity Reaction Status Date / Time hydrocodone Allergy Hives Verified 04/23/17 11:58 Limitations: ROS unobtainable due to patients medical condition Past Medical History - Past Medical History Medical history: Reports: diabetes - Social History Smoking Status: Unknown if ever smoked Physical Exam General: Patient awakens to sternal rub. Head: Normocephalic Atraumatic Eyes: PERRL, EOMI ENT: Airway patent, no stridor Neck: supple, no meningismus Chest: Lungs clear to auscultation bilateral Cardiac: Regular rhythm Abdomen: soft, nontender, nondistended; no guarding, rebound, or tenderness to percussion Musculoskeletal: Calves symmetric, nontender, no palpable cord Skin: No rash, normal skin tone Neuro: Patient awakens to sternal rub and is able to follow commands squeezing fingers on both sides and wiggling her toes. Patient's gag reflex is intact. Pupils are 2 but nonreactive. - General Limitations: no limitations General appearance: in no apparent distress, obtunded Course - Reevaluation(s) Reevaluation #1: Mental status continues to improve with fluids and insulin drip. Patient's blood work is significantly abnormal. ICU cares recommended. Reevaluation #2: Patient's bicarbonate has improved on repeat testing. Patient's blood glucose has worsened. Using the standard protocol this has been increased from 5-20U/ hr. - Consultations Consultation #1: Discussed with hospitalist, Dr. Higginbotham. Patient will need to go to the ICU under the ICU clerical office worker care. Consultation #2: Discussed with ICU clerical office worker. Patient accepted for admission. Recommends testing for TSH, influenza, drug screen. Recommend starting Zosyn and bicarbonate with 3 A in a liter of saline run at 100 mL per hour. Vital Signs Temperature 95.7 F L 04/23/17 11:03 Pulse Rate 127 04/23/17 11:03 Respiratory Rate 28 04/23/17 11:03 Blood Pressure 134/84 04/23/17 11:03 O2 Sat by Pulse Oximetry 100 04/23/17 11:03 Temperature 97 F L 04/23/17 15:00 Pulse Rate 128 04/23/17 16:03 Respiratory Rate 20 04/23/17 16:03 Blood Pressure 136/81 04/23/17 16:03 O2 Sat by Pulse Oximetry 100 04/23/17 16:03 Oxygen Delivery Oxygen Delivery Nasal Cannula Medical Decision Making - Medical Records Medical records reviewed: Yes I reviewed the patient's medical records. - Lab Data Lab results reviewed: Yes I reviewed the patient's lab results. Result diagrams: 04/23/17 11:37 04/23/17 13:12 Lab Results 04/23/17 04/23/17 04/23/17 Range/Units 11:05 11:07 11:19 WBC (4.3-11.1) K/mcL RBC (3.82-4.97) M/mcL Hgb (11.5-15.4) g/dL Hct (35.3-44.9) % MCV (83.0-100.0) fL MCH (28.0-33.3) pg MCHC (31.6-35.5) g/dL RDW (11.5-14.5) % Plt Count (140-400) K/mcL MPV (9.4-12.4) fL Immature Gran % (0-4) % Seg Neutrophils % % Lymphocytes % % Monocytes % % Eosinophils % % Basophils % % Neutrophils # (1.6-8.9) K/mcL Lymphocytes # (0.6-4.6) K/mcL Monocytes # (0.0-1.3) K/mcL Eosinophils # (0.0-0.6) K/mcL Basophils # (0.0-0.2) K/mcL PT (9.4-12.1) Seconds INR VBG pH (7.32-7.42) pH Units VBG pCO2 (41-51) mmHg VBG pO2 (25-50) mmHg VBG HCO3 (21-27) mEq/L Mixed VBG pH 6.95 L (7.34-7.36) pH Units Mixed VBG pCO2 < 13 L (44-46) mmHg Mixed VBG pO2 157 H (35-45) mmHg Sodium (136-145) mEq/L Potassium (3.5-5.1) mEq/L Chloride (98-107) mEq/L Carbon Dioxide (23-29) mEq/L BUN (6-20) mg/dL Creatinine (0.60-1.20) mg/dL Est GFR ( Amer) (> 60) Est GFR (Non-Af Amer) (> 60) BUN/Creatinine Ratio (6-26) Glucose (70-105) mg/dL POC Glucose > 600 H* > 600 H* (58-89) Serum Osmolality (280-300) mOsm/kg Calculated Osmolality (280-300) Lactic Acid (0.5-2.2) mmol/L Calcium (8.6-10.3) mg/dL Phosphorus (2.7-4.5) mg/dL Magnesium (1.6-2.6) mg/dL Total Bilirubin (0.3-1.0) mg/dL Direct Bilirubin (0.0-0.2) mg/dL Indirect Bilirubin (0.0-1.2) mg/dL AST (13-39) Units/L ALT (7-52) Units/L Alkaline Phosphatase (34-104) Units/L Troponin I (< 0.04) ng/mL Serum Total Protein (6.4-8.9) g/dL Albumin (3.5-5.7) g/dL Globulin (2.4-3.5) g/dL Albumin/Globulin Ratio (1.1-2.2) Lipase (11-82) Units/L Beta-Hydroxybutyric Acd (0.02-0.27) mmol/L TSH (0.340-5.600) mcIU/mL Urine Color (Yellow) Urine Clarity (Clear) Urine pH (5.0-8.0) pH Units Ur Specific [place] (1.010-1.025) Urine Protein (Neg-Trace) mg/dL Urine Glucose (UA) (Normal) mg/dL Urine Ketones (Negative) mg/dL Urine Blood (Negative) Urine Nitrite (Negative) Urine Bilirubin (Negative) Urine Urobilinogen (Normal) mg/dL Ur Leukocyte Esterase (Negative) Urine Microscopic RBC (0-3) per hpf Urine Microscopic WBC (0-3) per hpf Ur Squamous Epith Cells (None-Few) per lpf Urine Bacteria (None-Few) per hpf Hyaline Casts (None-Few) per lpf Ur Culture Indicated? (NO) Salicylates (15.0-30.0) mg/dL Person Notif of Crit 04/23/17 04/23/17 04/23/17 Range/Units 11:37 11:37 11:37 WBC 22.8 H (4.3-11.1) K/mcL RBC 3.18 L (3.82-4.97) M/mcL Hgb 9.6 L (11.5-15.4) g/dL Hct 31.1 L (35.3-44.9) % MCV 97.8 (83.0-100.0) fL MCH 30.2 (28.0-33.3) pg MCHC 30.9 L (31.6-35.5) g/dL RDW 11.7 (11.5-14.5) % Plt Count 476 H (140-400) K/mcL MPV 10.1 (9.4-12.4) fL Immature Gran % 1.6 (0-4) % Seg Neutrophils % 82.0 % Lymphocytes % 8.8 % Monocytes % 7.1 % Eosinophils % 0.1 % Basophils % 0.4 % Neutrophils # 18.7 H (1.6-8.9) K/mcL Lymphocytes # 2.0 (0.6-4.6) K/mcL Monocytes # 1.6 H (0.0-1.3) K/mcL Eosinophils # 0.0 (0.0-0.6) K/mcL Basophils # 0.1 (0.0-0.2) K/mcL PT 11.6 (9.4-12.1) Seconds INR 1.1 VBG pH (7.32-7.42) pH Units VBG pCO2 (41-51) mmHg VBG pO2 (25-50) mmHg VBG HCO3 (21-27) mEq/L Mixed VBG pH (7.34-7.36) pH Units Mixed VBG pCO2 (44-46) mmHg Mixed VBG pO2 (35-45) mmHg Sodium (136-145) mEq/L Potassium (3.5-5.1) mEq/L Chloride (98-107) mEq/L Carbon Dioxide (23-29) mEq/L BUN (6-20) mg/dL Creatinine (0.60-1.20) mg/dL Est GFR ( Amer) (> 60) Est GFR (Non-Af Amer) (> 60) BUN/Creatinine Ratio (6-26) Glucose (70-105) mg/dL POC Glucose (58-89) Serum Osmolality (280-300) mOsm/kg Calculated Osmolality (280-300) Lactic Acid (0.5-2.2) mmol/L Calcium (8.6-10.3) mg/dL Phosphorus (2.7-4.5) mg/dL Magnesium (1.6-2.6) mg/dL Total Bilirubin (0.3-1.0) mg/dL Direct Bilirubin (0.0-0.2) mg/dL Indirect Bilirubin (0.0-1.2) mg/dL AST (13-39) Units/L ALT (7-52) Units/L Alkaline Phosphatase (34-104) Units/L Troponin I (< 0.04) ng/mL Serum Total Protein (6.4-8.9) g/dL Albumin (3.5-5.7) g/dL Globulin (2.4-3.5) g/dL Albumin/Globulin Ratio (1.1-2.2) Lipase 10 L (11-82) Units/L Beta-Hydroxybutyric Acd (0.02-0.27) mmol/L TSH (0.340-5.600) mcIU/mL Urine Color (Yellow) Urine Clarity (Clear) Urine pH (5.0-8.0) pH Units Ur Specific [place] (1.010-1.025) Urine Protein (Neg-Trace) mg/dL Urine Glucose (UA) (Normal) mg/dL Urine Ketones (Negative) mg/dL Urine Blood (Negative) Urine Nitrite (Negative) Urine Bilirubin (Negative) Urine Urobilinogen (Normal) mg/dL Ur Leukocyte Esterase (Negative) Urine Microscopic RBC (0-3) per hpf Urine Microscopic WBC (0-3) per hpf Ur Squamous Epith Cells (None-Few) per lpf Urine Bacteria (None-Few) per hpf Hyaline Casts (None-Few) per lpf Ur Culture Indicated? (NO) Salicylates (15.0-30.0) mg/dL Person Notif of Crit 04/23/17 04/23/17 04/23/17 Range/Units 11:37 11:37 11:37 WBC (4.3-11.1) K/mcL RBC (3.82-4.97) M/mcL Hgb (11.5-15.4) g/dL Hct (35.3-44.9) % MCV (83.0-100.0) fL MCH (28.0-33.3) pg MCHC (31.6-35.5) g/dL RDW (11.5-14.5) % Plt Count (140-400) K/mcL MPV (9.4-12.4) fL Immature Gran % (0-4) % Seg Neutrophils % % Lymphocytes % % Monocytes % % Eosinophils % % Basophils % % Neutrophils # (1.6-8.9) K/mcL Lymphocytes # (0.6-4.6) K/mcL Monocytes # (0.0-1.3) K/mcL Eosinophils # (0.0-0.6) K/mcL Basophils # (0.0-0.2) K/mcL PT (9.4-12.1) Seconds INR VBG pH (7.32-7.42) pH Units VBG pCO2 (41-51) mmHg VBG pO2 (25-50) mmHg VBG HCO3 (21-27) mEq/L Mixed VBG pH (7.34-7.36) pH Units Mixed VBG pCO2 (44-46) mmHg Mixed VBG pO2 (35-45) mmHg Sodium 138 (136-145) mEq/L Potassium 5.1 (3.5-5.1) mEq/L Chloride 113 H (98-107) mEq/L Carbon Dioxide 2 L* (23-29) mEq/L BUN 17 (6-20) mg/dL Creatinine 1.22 H (0.60-1.20) mg/dL Est GFR ( Amer) > 60 (> 60) Est GFR (Non-Af Amer) 51 L (> 60) BUN/Creatinine Ratio 14 (6-26) Glucose 676 H* (70-105) mg/dL POC Glucose (58-89) Serum Osmolality (280-300) mOsm/kg Calculated Osmolality 320 H (280-300) Lactic Acid 2.8 H (0.5-2.2) mmol/L Calcium 5.8 L* (8.6-10.3) mg/dL Phosphorus 5.2 H (2.7-4.5) mg/dL Magnesium 1.7 (1.6-2.6) mg/dL Total Bilirubin 0.1 L (0.3-1.0) mg/dL Direct Bilirubin 0.0 (0.0-0.2) mg/dL Indirect Bilirubin 0.1 (0.0-1.2) mg/dL AST 10 L (13-39) Units/L ALT 8 (7-52) Units/L Alkaline Phosphatase 116 H (34-104) Units/L Troponin I < 0.03 (< 0.04) ng/mL Serum Total Protein 4.6 L (6.4-8.9) g/dL Albumin 2.4 L (3.5-5.7) g/dL Globulin 2.2 L (2.4-3.5) g/dL Albumin/Globulin Ratio 1.1 (1.1-2.2) Lipase (11-82) Units/L Beta-Hydroxybutyric Acd (0.02-0.27) mmol/L TSH (0.340-5.600) mcIU/mL Urine Color (Yellow) Urine Clarity (Clear) Urine pH (5.0-8.0) pH Units Ur Specific [place] (1.010-1.025) Urine Protein (Neg-Trace) mg/dL Urine Glucose (UA) (Normal) mg/dL Urine Ketones (Negative) mg/dL Urine Blood (Negative) Urine Nitrite (Negative) Urine Bilirubin (Negative) Urine Urobilinogen (Normal) mg/dL Ur Leukocyte Esterase (Negative) Urine Microscopic RBC (0-3) per hpf Urine Microscopic WBC (0-3) per hpf Ur Squamous Epith Cells (None-Few) per lpf Urine Bacteria (None-Few) per hpf Hyaline Casts (None-Few) per lpf Ur Culture Indicated? (NO) Salicylates (15.0-30.0) mg/dL Person Notif of Crit 04/23/17 04/23/17 04/23/17 Range/Units 11:37 11:37 11:43 WBC (4.3-11.1) K/mcL RBC (3.82-4.97) M/mcL Hgb (11.5-15.4) g/dL Hct (35.3-44.9) % MCV (83.0-100.0) fL MCH (28.0-33.3) pg MCHC (31.6-35.5) g/dL RDW (11.5-14.5) % Plt Count (140-400) K/mcL MPV (9.4-12.4) fL Immature Gran % (0-4) % Seg Neutrophils % % Lymphocytes % % Monocytes % % Eosinophils % % Basophils % % Neutrophils # (1.6-8.9) K/mcL Lymphocytes # (0.6-4.6) K/mcL Monocytes # (0.0-1.3) K/mcL Eosinophils # (0.0-0.6) K/mcL Basophils # (0.0-0.2) K/mcL PT (9.4-12.1) Seconds INR VBG pH (7.32-7.42) pH Units VBG pCO2 (41-51) mmHg VBG pO2 (25-50) mmHg VBG HCO3 (21-27) mEq/L Mixed VBG pH (7.34-7.36) pH Units Mixed VBG pCO2 (44-46) mmHg Mixed VBG pO2 (35-45) mmHg Sodium (136-145) mEq/L Potassium (3.5-5.1) mEq/L Chloride (98-107) mEq/L Carbon Dioxide (23-29) mEq/L BUN (6-20) mg/dL Creatinine (0.60-1.20) mg/dL Est GFR ( Amer) (> 60) Est GFR (Non-Af Amer) (> 60) BUN/Creatinine Ratio (6-26) Glucose (70-105) mg/dL POC Glucose (58-89) Serum Osmolality 341 H (280-300) mOsm/kg Calculated Osmolality (280-300) Lactic Acid (0.5-2.2) mmol/L Calcium (8.6-10.3) mg/dL Phosphorus (2.7-4.5) mg/dL Magnesium (1.6-2.6) mg/dL Total Bilirubin (0.3-1.0) mg/dL Direct Bilirubin (0.0-0.2) mg/dL Indirect Bilirubin (0.0-1.2) mg/dL AST (13-39) Units/L ALT (7-52) Units/L Alkaline Phosphatase (34-104) Units/L Troponin I (< 0.04) ng/mL Serum Total Protein (6.4-8.9) g/dL Albumin (3.5-5.7) g/dL Globulin (2.4-3.5) g/dL Albumin/Globulin Ratio (1.1-2.2) Lipase (11-82) Units/L Beta-Hydroxybutyric Acd > 2.00 H (0.02-0.27) mmol/L TSH (0.340-5.600) mcIU/mL Urine Color Yellow (Yellow) Urine Clarity Clear (Clear) Urine pH 6.0 (5.0-8.0) pH Units Ur Specific [place] 1.029 H (1.010-1.025) Urine Protein 30 H (Neg-Trace) mg/dL Urine Glucose (UA) >=1000 H (Normal) mg/dL Urine Ketones >=160 H (Negative) mg/dL Urine Blood Moderate H (Negative) Urine Nitrite Negative (Negative) Urine Bilirubin Negative (Negative) Urine Urobilinogen Normal (Normal) mg/dL Ur Leukocyte Esterase Negative (Negative) Urine Microscopic RBC 0-3 (0-3) per hpf Urine Microscopic WBC 5-15 H (0-3) per hpf Ur Squamous Epith Cells Many H (None-Few) per lpf Urine Bacteria Few (None-Few) per hpf Hyaline Casts None Seen (None-Few) per lpf Ur Culture Indicated? NO (NO) Salicylates < 5.0 L (15.0-30.0) mg/dL Person Notif of Crit 04/23/17 04/23/17 04/23/17 Range/Units 13:12 13:12 13:23 WBC (4.3-11.1) K/mcL RBC (3.82-4.97) M/mcL Hgb (11.5-15.4) g/dL Hct (35.3-44.9) % MCV (83.0-100.0) fL MCH (28.0-33.3) pg MCHC (31.6-35.5) g/dL RDW (11.5-14.5) % Plt Count (140-400) K/mcL MPV (9.4-12.4) fL Immature Gran % (0-4) % Seg Neutrophils % % Lymphocytes % % Monocytes % % Eosinophils % % Basophils % % Neutrophils # (1.6-8.9) K/mcL Lymphocytes # (0.6-4.6) K/mcL Monocytes # (0.0-1.3) K/mcL Eosinophils # (0.0-0.6) K/mcL Basophils # (0.0-0.2) K/mcL PT (9.4-12.1) Seconds INR VBG pH 6.94 L* (7.32-7.42) pH Units VBG pCO2 19 L (41-51) mmHg VBG pO2 98 H (25-50) mmHg VBG HCO3 4 L (21-27) mEq/L Mixed VBG pH (7.34-7.36) pH Units Mixed VBG pCO2 (44-46) mmHg Mixed VBG pO2 (35-45) mmHg Sodium 136 (136-145) mEq/L Potassium 6.7 H* D (3.5-5.1) mEq/L Chloride 106 (98-107) mEq/L Carbon Dioxide 3 L* (23-29) mEq/L BUN 21 H (6-20) mg/dL Creatinine 1.67 H (0.60-1.20) mg/dL Est GFR ( Amer) 43 L (> 60) Est GFR (Non-Af Amer) 36 L (> 60) BUN/Creatinine Ratio 13 (6-26) Glucose 750 H* (70-105) mg/dL POC Glucose (58-89) Serum Osmolality (280-300) mOsm/kg Calculated Osmolality 321 H (280-300) Lactic Acid (0.5-2.2) mmol/L Calcium 7.9 L (8.6-10.3) mg/dL Phosphorus 6.8 H (2.7-4.5) mg/dL Magnesium (1.6-2.6) mg/dL Total Bilirubin (0.3-1.0) mg/dL Direct Bilirubin (0.0-0.2) mg/dL Indirect Bilirubin (0.0-1.2) mg/dL AST (13-39) Units/L ALT (7-52) Units/L Alkaline Phosphatase (34-104) Units/L Troponin I (< 0.04) ng/mL Serum Total Protein (6.4-8.9) g/dL Albumin (3.5-5.7) g/dL Globulin (2.4-3.5) g/dL Albumin/Globulin Ratio (1.1-2.2) Lipase (11-82) Units/L Beta-Hydroxybutyric Acd (0.02-0.27) mmol/L TSH 1.342 (0.340-5.600) mcIU/mL Urine Color (Yellow) Urine Clarity (Clear) Urine pH (5.0-8.0) pH Units Ur Specific [place] (1.010-1.025) Urine Protein (Neg-Trace) mg/dL Urine Glucose (UA) (Normal) mg/dL Urine Ketones (Negative) mg/dL Urine Blood (Negative) Urine Nitrite (Negative) Urine Bilirubin (Negative) Urine Urobilinogen (Normal) mg/dL Ur Leukocyte Esterase (Negative) Urine Microscopic RBC (0-3) per hpf Urine Microscopic WBC (0-3) per hpf Ur Squamous Epith Cells (None-Few) per lpf Urine Bacteria (None-Few) per hpf Hyaline Casts (None-Few) per lpf Ur Culture Indicated? (NO) Salicylates (15.0-30.0) mg/dL Person Notif of Seven LANTIGUA - Radiology Data Radiology results reviewed: Yes I reviewed the patient's radiology results. - EKG Data EKG #1 EKG results narrative: EKG shows ventricular rate 127 AK 218 QRS 109 QTC [address] No [address] ST elevations or depressions. Atrial tachycardia. Critical Care Time Critical Care Time: Yes Attestation: The high probability of a clinically significant, sudden or life threatening deterioration of the [neurologic and cardiovascular] system(s) required my full and direct attention, intervention and personal management. The aggregate critical care time was [65] minutes. This time is in addition to time spent performing reported procedures but includes the following: [x] Data Review and interpretation [x] Patient assessment and monitoring of vital signs [x] Documentation [x] Medication orders and management Attestation Statement - Attestation Attestation: I examined this patient and my medical decision-making was reviewed with the Resident Physician, Dr. Osman. I agree with the documented findings, disposition and treatment plan as described except to the extent set forth below. Patient is a 31-year-old white female with a history of type 1 diabetes and blindness in both eyes who presents to the emergency department brought by EMS from home for unresponsiveness. Patient on arrival is very frail appearing but will open eyes to loud voice and follow commands. Patient is protecting her airway. Patient is tachycardic on arrival and blood glucose is reading high. Patient moans but is nonverbal and not providing us with any additional history. I agree with patient's physical exam findings as documented. On patient arrival patient was immediately placed on air sampling and monitoring continuous pulse ox abdominal oxygen and 2 large bore IVs were established with IV fluid boluses initiated. Labs were drawn and sent including sepsis protocol initiated. Patient's mental status continues to improve with IV fluid hydration. Patient's mother did call in about the patient and we notified her of her critical status and likely ICU admission. She stated patient had a few days of cough and then woke up this morning unresponsive. Paramedics patient's residence has a reputation of significant drug abuse. Patient was found to be profoundly acidotic with bicarbonate noted to an gapped acidosis with hyperglycemia consistent for DKA. Insulin drip was initiated IV fluids were continued. White count is also elevated. Discussed case with hospitalist who recommended patient be any ICU due to the profound acidemia. Case discussed with the clerical office worker who came down to see the patient in the emergency department. Repeat labs were performed actually shows her blood sugar increasing her bicarbonate is now 3 so her insulin drip was adjusted accordingly. Patient will be admitted in critical condition to the ICU.
--- NOTE | 2017-04-23 14:18 | Pulmonology History & Physical ---
<Jean Paul Maravilla W - Last Filed: 04/23/17 14:35> Date of Encounter: 04/23/17 History of Present Illness HPI: Ms. Sierra is a 31 year old female Medications and Allergies Insulin ASPART [Novolog Flexpen] 2 - 10 unit SQ TIDWM 04/23/17 [History] Insulin Glargine,Hum.rec.anlog [Lantus Solostar] 10 - 20 unit SQ HS 04/23/17 [ History] Lisinopril/Hydrochlorothiazide [Zestoretic 20-12.5 mg Tablet] 1 tab PO DAILY [History] Metoprolol [Lopressor] 25 mg PO BID 04/23/17 [History] Sodium Bicarbonate 650 mg PO DAILY 04/23/17 [History] 3 Allergy/AdvReac Type Severity Reaction Status Date / Time hydrocodone Allergy Hives Verified 04/23/17 11:58 All Systems: A 10-system review of systems was performed and is negative for pertinent findings except as documented above in the HPI. Results - Laboratory Findings CBC and BMP: 04/23/17 11:37 04/23/17 13:12 PT/INR, D-dimer PT 11.6 Seconds (9.4-12.1) 04/23/17 11:37 Abnormal lab findings: Abnormal lab results WBC 22.8 K/mcL (4.3-11.1) H 04/23/17 11:37 RBC 3.18 M/mcL (3.82-4.97) L 04/23/17 11:37 Hgb 9.6 g/dL (11.5-15.4) L 04/23/17 11:37 Hct 31.1 % (35.3-44.9) L 04/23/17 11:37 MCHC 30.9 g/dL (31.6-35.5) L 04/23/17 11:37 Plt Count 476 K/mcL (140-400) H 04/23/17 11:37 Neutrophils # 18.7 K/mcL (1.6-8.9) H 04/23/17 11:37 Monocytes # 1.6 K/mcL (0.0-1.3) H 04/23/17 11:37 VBG pH 6.94 pH Units (7.32-7.42) L* 04/23/17 13:23 VBG pCO2 19 mmHg (41-51) L 04/23/17 13:23 VBG pO2 98 mmHg (25-50) H 04/23/17 13:23 VBG HCO3 4 mEq/L (21-27) L 04/23/17 13:23 Mixed VBG pH 6.95 pH Units (7.34-7.36) L 04/23/17 11:19 Mixed VBG pCO2 < 13 mmHg (44-46) L 04/23/17 11:19 Mixed VBG pO2 157 mmHg (35-45) H 04/23/17 11:19 Potassium 6.7 mEq/L (3.5-5.1) H* D 04/23/17 13:12 Carbon Dioxide 3 mEq/L (23-29) L* 04/23/17 13:12 BUN 21 mg/dL (6-20) H 04/23/17 13:12 Creatinine 1.67 mg/dL (0.60-1.20) H 04/23/17 13:12 Est GFR ( Amer) 43 (> 60) L 04/23/17 13:12 Est GFR (Non-Af Amer) 36 (> 60) L 04/23/17 13:12 Glucose 750 mg/dL (70-105) H* 04/23/17 13:12 POC Glucose > 600 (58-89) H* 04/23/17 11:07 Serum Osmolality 341 mOsm/kg (280-300) H 04/23/17 11:37 Calculated Osmolality 321 (280-300) H 04/23/17 13:12 Lactic Acid 2.8 mmol/L (0.5-2.2) H 04/23/17 11:37 Calcium 7.9 mg/dL (8.6-10.3) L 04/23/17 13:12 Phosphorus 6.8 mg/dL (2.7-4.5) H 04/23/17 13:12 Total Bilirubin 0.1 mg/dL (0.3-1.0) L 04/23/17 11:37 AST 10 Units/L (13-39) L 04/23/17 11:37 Alkaline Phosphatase 116 Units/L (34-104) H 04/23/17 11:37 Serum Total Protein 4.6 g/dL (6.4-8.9) L 04/23/17 11:37 Albumin 2.4 g/dL (3.5-5.7) L 04/23/17 11:37 Globulin 2.2 g/dL (2.4-3.5) L 04/23/17 11:37 Lipase 10 Units/L (11-82) L 04/23/17 11:37 Beta-Hydroxybutyric Acd > 2.00 mmol/L (0.02-0.27) H 04/23/17 11:37 Ur Specific [place] 1.029 (1.010-1.025) H 04/23/17 11:43 Urine Protein 30 mg/dL (Neg-Trace) H 04/23/17 11:43 Urine Glucose (UA) >=1000 mg/dL (Normal) H 04/23/17 11:43 Urine Ketones >=160 mg/dL (Negative) H 04/23/17 11:43 Urine Blood Moderate (Negative) H 04/23/17 11:43 Urine Microscopic WBC 5-15 per hpf (0-3) H 04/23/17 11:43 Ur Squamous Epith Cells Many per lpf (None-Few) H 04/23/17 11:43 Salicylates < 5.0 mg/dL (15.0-30.0) L 04/23/17 11:37 - Attending Attestation I examined this patient and my medical decision-making was reviewed with the Resident Physician. I agree with the documented findings, disposition and treatment plan as described except to the extent set forth below. We independently had [id number] contact with the patient. Patient seen and examined at bedside in the ED Labs, radiology, chart personally reviewed. 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 No clear evidence of pneumonia but at high risk for aspiration Cards: Blood pressure monitored and stable she is tachycardic from stress response and dehydration. ECG without evidence of STEMI; Trop WNL FEN-GI: Nothing by mouth for now CT abdomen and pelvis pending Renal: PAOLA on CKD with chronic metabolic acidosis being followed by nephrology starting a bicarbonate infusion for this reason she has mixed/non-gap acidosis related to DKA and mild elevation of lactate. She has hyperkalemia which is likely secondary to hypovolemia acidosis should improve with volume expansion and insulin infusion we will continue to trend this every 2 hours. Plan to give Calcium gluconate. Nephrology consult based upon clinical course ID: Concern for sepsis broad-spectrum antimicrobials have been given for intra- abdominal/aspiration. CT abdomen pelvis pending cultures have been obtained including viral panel for influenza planned to de-escalate antimicrobials next 24-48 hours based upon sensitivities/clinical course Heme/Onc: DVT prophylaxis given Endo: Severe DKA with known history of type 1 diabetes on insulin protocol Integ/MSK: Skin Care per routine ICU Nursing Protocol to prevent ulcers. Lines: All lines examined without evidence of infection : Dispo: Admit to ICU for ongoing management CODE: Full code <Bi Alvares - Last Filed: 04/23/17 15:52> Date of Encounter: 04/23/17 Time of Encounter: 14:12 Assessment and Plan (1) DKA (diabetic ketoacidoses) Current visit: Yes Status: Acute Pt with hx to IDDM type I c multiple admissions for DKA DKA 2/2 to Drug use most likely vs infection vs. missed insulin doses Insulin drip started in ED BG 500 on arrival up to 650 at next check Anion Gap 27 CO2 2 on arrival now 3. Drug screen positive for coacine and Benzos. Plan: Continue DKA protocol Fluids switched to LR Checking abd CT, TSH, Respiratory viral panel Will check Labs every 2 hrs Placed on electrolyte protocol Qualifiers: Diabetes mellitus type: type 1 Diabetes mellitus complication detail: with coma Qualified Code(s): E10.11 - Type 1 diabetes mellitus with ketoacidosis with coma (2) Hyperkalemia Current visit: Yes Status: Acute Latest K 6.7 likely 2/2 to hypovolemia acidosis Plan: 2g calcium gluconate ordered labs every 2 hrs continue volume repletion with LR nephrology c/s if necessary based on clinical course (3) Metabolic acidosis Current visit: Yes Status: Acute Pt follows with nephrology for chronic metabolic acidosis etiology not yet determined patient on sodium bicarb at home. Plan: give Na bicarb correct DKA nephrology c/s depending on clinical course. (4) Sepsis Current visit: Yes Status: Acute Pt meets sepsis criteria based on WBC 22.8, temp 95.7, Tachycardia 127, Tachypnea 28, LA 2.8 likely 2/2/ DKA Patient received Zosyn in ED Bcx ordered lungs clear low suspiscion for infection Plan: Checking respiratory viral panel Continue zosyn Checking CT abd pelvis repeat LA ordered continue to monitor Qualifiers: Sepsis type: sepsis due to unspecified organism Qualified Code(s): A41.9 - Sepsis, unspecified organism (5) Acute kidney injury superimposed on CKD Current visit: Yes Status: Acute BUN 21 Cr 1.67 Patient follows with nephrology for undetermined metabolic acidosis Plan: continue DKA protocol continue IV hydration nephrology consulted if necessary (6) Diabetes mellitus, with long-term current use of insulin Current visit: Yes Status: Acute Patient with type I DM with multiple hospitalizatiosn for DKA Plan: See DKA Qualifiers: Diabetes mellitus type: other specified (including CLARENCE) Diabetes mellitus complication status: with ketoacidosis Diabetes mellitus complication detail: with coma Qualified Code(s): E13.11 - Other specified diabetes mellitus with ketoacidosis with coma; Z79.4 - nursing home (current) use of insulin; 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 Qualifiers: Hypertension type: essential hypertension Qualified Code(s): I10 - Essential (primary) hypertension (8) DVT prophylaxis Current visit: Yes Status: Acute Sub Q heparin 5,000 units Q12H History of Present Illness Chief complaint: DKA HPI: Ms. Sierra is a 31 year old female c PMHx of IDDM c multiple cases of DKA, chronic metabolic acidosis, HTN, Hepatosplenomegaly, cholecystectomy, appendectomy, blindness reports to [facility] brought in by EMS found "unresponsive" by mother. Patient reports cough last couple days, patient denies missing doses of insulin. Patient denies current drug use. Per chart review patient well known to [facility], patient's house well know for recreational drug use. Patient was found to be tachycardic, tachypnic, hypothermic, with a BS in the 500s. Patient was started on Insulin drip and given 3 L of NS. Patient was accepted to the ICU for further care. Past Med Surg Social Fam HX - Past Medical History Medical history: diabetes - Social History Smoking Status: Unknown if ever smoked ROS unobtainable: due to mental status All Systems: A 10-system review of systems was performed and is negative for pertinent findings except as documented above in the HPI. Physical Examination Vital Signs: Vital Signs, Last 4 Hours Temp Pulse Resp BP Pulse Ox 04/23/17 13:55 130 24 132/66 100 04/23/17 12:43 94.1 F L 122 20 131/72 100 04/23/17 12:21 123 24 121/64 100 04/23/17 11:11 128 28 134/84 100 04/23/17 11:03 95.7 F L 127 28 134/84 100 General appearance: lethargic ENT: oropharynx dry Neck: supple Effort: mildly labored Auscultation: bilateral: clear Cardiovascular: other (tachycardia) Gastrointestinal: normoactive bowel sounds, soft, non-tender Integumentary: normal Extremities: no cyanosis Musculoskeletal: no deformities non-focal exam, other (lethargic but able to follow commands) Results - Laboratory Findings CBC and BMP: 04/23/17 11:37 04/23/17 13:12 PT/INR, D-dimer PT 11.6 Seconds (9.4-12.1) 04/23/17 11:37 Abnormal lab findings: Abnormal lab results WBC 22.8 K/mcL (4.3-11.1) H 04/23/17 11:37 RBC 3.18 M/mcL (3.82-4.97) L 04/23/17 11:37 Hgb 9.6 g/dL (11.5-15.4) L 04/23/17 11:37 Hct 31.1 % (35.3-44.9) L 04/23/17 11:37 MCHC 30.9 g/dL (31.6-35.5) L 04/23/17 11:37 Plt Count 476 K/mcL (140-400) H 04/23/17 11:37 Neutrophils # 18.7 K/mcL (1.6-8.9) H 04/23/17 11:37 Monocytes # 1.6 K/mcL (0.0-1.3) H 04/23/17 11:37 VBG pH 6.94 pH Units (7.32-7.42) L* 04/23/17 13:23 VBG pCO2 19 mmHg (41-51) L 04/23/17 13:23 VBG pO2 98 mmHg (25-50) H 04/23/17 13:23 VBG HCO3 4 mEq/L (21-27) L 04/23/17 13:23 Mixed VBG pH 6.95 pH Units (7.34-7.36) L 04/23/17 11:19 Mixed VBG pCO2 < 13 mmHg (44-46) L 04/23/17 11:19 Mixed VBG pO2 157 mmHg (35-45) H 04/23/17 11:19 Potassium 6.7 mEq/L (3.5-5.1) H* D 04/23/17 13:12 Carbon Dioxide 3 mEq/L (23-29) L* 04/23/17 13:12 BUN 21 mg/dL (6-20) H 04/23/17 13:12 Creatinine 1.67 mg/dL (0.60-1.20) H 04/23/17 13:12 Est GFR ( Amer) 43 (> 60) L 04/23/17 13:12 Est GFR (Non-Af Amer) 36 (> 60) L 04/23/17 13:12 Glucose 750 mg/dL (70-105) H* 04/23/17 13:12 POC Glucose > 600 (58-89) H* 04/23/17 11:07 Calculated Osmolality 321 (280-300) H 04/23/17 13:12 Lactic Acid 2.8 mmol/L (0.5-2.2) H 04/23/17 11:37 Calcium 7.9 mg/dL (8.6-10.3) L 04/23/17 13:12 Phosphorus 6.8 mg/dL (2.7-4.5) H 04/23/17 13:12 Total Bilirubin 0.1 mg/dL (0.3-1.0) L 04/23/17 11:37 AST 10 Units/L (13-39) L 04/23/17 11:37 Alkaline Phosphatase 116 Units/L (34-104) H 04/23/17 11:37 Serum Total Protein 4.6 g/dL (6.4-8.9) L 04/23/17 11:37 Albumin 2.4 g/dL (3.5-5.7) L 04/23/17 11:37 Globulin 2.2 g/dL (2.4-3.5) L 04/23/17 11:37 Lipase 10 Units/L (11-82) L 04/23/17 11:37 Beta-Hydroxybutyric Acd > 2.00 mmol/L (0.02-0.27) H 04/23/17 11:37 Ur Specific [place] 1.029 (1.010-1.025) H 04/23/17 11:43 Urine Protein 30 mg/dL (Neg-Trace) H 04/23/17 11:43 Urine Glucose (UA) >=1000 mg/dL (Normal) H 04/23/17 11:43 Urine Ketones >=160 mg/dL (Negative) H 04/23/17 11:43 Urine Blood Moderate (Negative) H 04/23/17 11:43 Urine Microscopic WBC 5-15 per hpf (0-3) H 04/23/17 11:43 Ur Squamous Epith Cells Many per lpf (None-Few) H 04/23/17 11:43 Salicylates < 5.0 mg/dL (15.0-30.0) L 04/23/17 11:37
[2017-04-23] MEDS ORDERED: Insulin Regular, Human 100 UNIT/ML IV PRN (14:26)
[2017-04-23] MEDS ORDERED: Piperacillin/Tazobactam 3.375 GM in Water for inj. (sterile) 20 ML 20 ML IVP ONE (14:30)
[2017-04-23] MEDS ORDERED: Calcium Gluconate 2,000 MG in D5% in Water 100 ML IVPB ONE (14:42)
[2017-04-23] MEDS ORDERED: Ringers Solution, Lactated 1,000 ML IVC ONE (14:59)
[2017-04-23] MEDS ORDERED: Ringers Solution, Lactated 1,000 ML IVC SCH (15:00)
[2017-04-23 15:05] LABS: Amphetamine Screen,Urine Negative ng/mL (Cutoff=1000); Barbiturate Screen,Urine Negative ng/mL (Cutoff=200); Benzodiazepines Screen,Urine Positive ng/mL (Cutoff=200); Cannabinoid Screen,Urine Negative ng/mL (Cutoff = 50); Cocaine Screen,Urine Positive ng/mL (Cutoff= 300); Opiate Screen,Urine Negative ng/mL (Cutoff=300); Phencyclidine Screen,Urine Negative ng/mL (Cutoff=25)
[2017-04-23] MEDS: Insulin Human Regular 100 UNIT in 0.9 % Sodium Chloride 100 ML IVC SCH (16:17)
[2017-04-23 16:48] LABS: ABG Base Excess -23 mEq/L (-2 to 3); ABG HCO3 5 mEq/L (21-27); ABG Oxygen Saturation 98 % (95-98); ABG PCO2 15 mmHg (35-45); ABG PH 7.11 pH Units (7.32-7.45); ABG PO2 135 mmHg (85-104); ABG TCO2 5 mEq/L (20-26)
[2017-04-23] MEDS: *HR* Heparin 5,000 UNIT/ML VIAL SQ SCH (16:53)
[2017-04-23 16:56] LABS: ABG Ionized Calcium 1.32 mmol/L (1.15-1.35)
[2017-04-23] MEDS ORDERED: Promethazine 12.5 MG in 0.9 % Sodium Chloride 50 ML IVPB PRN (17:37)
[2017-04-23] MEDS ORDERED: *HR* Promethazine 25 MG/ML VIAL ONE (17:39)
[2017-04-23] MEDS: *HR* Promethazine 25 MG/ML VIAL IVP PRN (17:50)
[2017-04-23 18:13] LABS: ABG Base Excess -15 mEq/L (-2 to 3); ABG HCO3 10 mEq/L (21-27); ABG Oxygen Saturation 99 % (95-98); ABG PCO2 22 mmHg (35-45); ABG PH 7.29 pH Units (7.32-7.45); ABG PO2 157 mmHg (85-104); ABG TCO2 11 mEq/L (20-26)
[2017-04-23] MEDS ORDERED: D5% in 0.45% NACL 1,000 ML IVC ONE (19:46)
[2017-04-23] MEDS: D5% in 0.45% NACL 1,000 ML IVC SCH (20:01)
[2017-04-23 20:40] LABS: Magnesium 1.8 mg/dL (1.6-2.6); Phosphorous 2.2 mg/dL (2.7-4.5)
[2017-04-23 20:52] LABS: BUN/Creatinine Ratio 12 (6-26); Blood Urea Nitrogen 14 mg/dL (6-20); Carbon Dioxide 13 mEq/L (23-29); Chloride 119 mEq/L (98-107); Glucose 194 mg/dL (70-105); Osmolality,Calculated 302 (280-300); Potassium 4.3 mEq/L (3.5-5.1); Sodium 143 mEq/L (136-145); eGFR For African Americans > 60 (> 60); eGFR For Non-African Americans 55 (> 60)
[2017-04-23] MEDS: Piperacillin/Tazobactam 3.375 GM/200 ML BAG IVPB SCH ×2 (21:30→22:29)
[2017-04-23 22:06] LABS: Adenovirus Not Detected (Not Detect); Bordetella Pertussis Not Detected (Not Detect); Chlamydophila pneumoniae Not Detected (Not Detect); Coronavirus 229E Not Detected (Not Detect); Coronavirus HKU1 Not Detected (Not Detect); Coronavirus NL63 Not Detected (Not Detect); Coronavirus OC43 Not Detected (Not Detect); Human Metapneumovirus Not Detected (Not Detect); Human Rhinovirus/Enterovirus Not Detected (Not Detect); Influenza A Subtype 2009 H1 Not Detected (Not Detect); Influenza A Untypeable Not Detected (Not Detect); Influenza B Not Detected (Not Detect); Mycoplasma pneumoniae Not Detected (Not Detect); Parainfluenza Virus 1 Not Detected (Not Detect); Parainfluenza Virus 2 Not Detected (Not Detect); Parainfluenza Virus 3 Not Detected (Not Detect); Parainfluenza Virus 4 Not Detected (Not Detect); Respiratory Syncytial Virus Not Detected (Not Detect)
[2017-04-23 22:51] LABS: BUN/Creatinine Ratio 12 (6-26); Blood Urea Nitrogen 13 mg/dL (6-20); Calcium 8.1 mg/dL (8.6-10.3); Carbon Dioxide 18 mEq/L (23-29); Chloride 119 mEq/L (98-107); Glucose 135 mg/dL (70-105); Osmolality,Calculated 298 (280-300); Potassium 3.7 mEq/L (3.5-5.1); Sodium 143 mEq/L (136-145); eGFR For African Americans > 60 (> 60); eGFR For Non-African Americans 56 (> 60)
[2017-04-23 23:06] LABS: VBG HCO3 17 mEq/L (21-27); VBG PCO2 30 mmHg (41-51); VBG PH 7.37 pH Units (7.32-7.42); VBG PO2 209 mmHg (25-50)
[2017-04-24 00:28] LABS: BUN/Creatinine Ratio 12 (6-26); Blood Urea Nitrogen 13 mg/dL (6-20); Calcium 7.8 mg/dL (8.6-10.3); Carbon Dioxide 19 mEq/L (23-29); Chloride 119 mEq/L (98-107); Glucose 116 mg/dL (70-105); Osmolality,Calculated 299 (280-300); Potassium 3.6 mEq/L (3.5-5.1); Sodium 144 mEq/L (136-145); eGFR For African Americans > 60 (> 60); eGFR For Non-African Americans 56 (> 60)
[2017-04-24] MEDS: D5% in 0.45% NACL 1,000 ML IVC SCH ×2 (02:00→08:47)
[2017-04-24 03:58] LABS: BUN/Creatinine Ratio 11 (6-26); Blood Urea Nitrogen 12 mg/dL (6-20); Calcium 7.5 mg/dL (8.6-10.3); Carbon Dioxide 17 mEq/L (23-29); Chloride 118 mEq/L (98-107); Glucose 160 mg/dL (70-105); Magnesium 2.3 mg/dL (1.6-2.6); Osmolality,Calculated 299 (280-300); Phosphorous 4.8 mg/dL (2.7-4.5); Potassium 4.3 mEq/L (3.5-5.1); Sodium 143 mEq/L (136-145); eGFR For African Americans > 60 (> 60); eGFR For Non-African Americans 57 (> 60)
[2017-04-24 03:58] LABS: VBG Ionized Calcium 1.16 mmol/L (1.15-1.35); VBG PH 7.27 pH Units (7.32-7.42)
[2017-04-24] MEDS: Insulin Human Regular 100 UNIT in 0.9 % Sodium Chloride 100 ML IVC SCH (04:34)
[2017-04-24 04:43] LABS: Basophils % 0.3 %; Eosinophils % 0.2 %; Hematocrit 27.5 % (35.3-44.9); Hemoglobin 9.1 g/dL (11.5-15.4); Immature Granulocytes % 0.8 % (0-4); Lymphocytes # 2.7 K/mcL (0.6-4.6); Lymphocytes % 22.5 %; Mean Corpuscular HGB Conc 33.1 g/dL (31.6-35.5); Mean Corpuscular Hemoglobin 29.8 pg (28.0-33.3); Mean Corpuscular Volume 90.2 fL (83.0-100.0); Mean Platelet Volume 9.3 fL (9.4-12.4); Monocytes # 1.2 K/mcL (0.0-1.3); Monocytes % 9.9 %; Neutrophils # 7.8 K/mcL (1.6-8.9); Platelet Count 335 K/mcL (140-400); Red Blood Count 3.05 M/mcL (3.82-4.97); Red Cell Distribution Width 12.2 % (11.5-14.5); Segmented Neutrophils % 66.3 %
[2017-04-24] MEDS: *HR* Heparin 5,000 UNIT/ML VIAL SQ SCH ×2 (05:00→18:14)
[2017-04-24 06:57] LABS: BUN/Creatinine Ratio 10 (6-26); Blood Urea Nitrogen 10 mg/dL (6-20); Calcium 7.5 mg/dL (8.6-10.3); Carbon Dioxide 19 mEq/L (23-29); Chloride 118 mEq/L (98-107); Glucose 161 mg/dL (70-105); Osmolality,Calculated 297 (280-300); Potassium 3.9 mEq/L (3.5-5.1); Sodium 142 mEq/L (136-145); eGFR For African Americans > 60 (> 60); eGFR For Non-African Americans > 60 (> 60)
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
[2017-04-24] MEDS: Piperacillin/Tazobactam 3.375 GM/200 ML BAG IVPB SCH (08:30)
[2017-04-24 09:45] LABS: VBG HCO3 19 mEq/L (21-27); VBG Ionized Calcium 1.17 mmol/L (1.15-1.35); VBG PCO2 38 mmHg (41-51); VBG PH 7.31 pH Units (7.32-7.42); VBG PO2 283 mmHg (25-50)
[2017-04-24] MEDS ORDERED: Insulin DETEMIR 100 UNIT/ML X5UNITS SQ ONE ×2 (11:00→14:03)
[2017-04-24] MEDS ORDERED: Insulin DETEMIR 100 UNIT/ML X5UNITS SQ SCH ×2 (11:00→21:00)
[2017-04-24] MEDS ORDERED: Insulin LISPRO 300 UNITS/3 ML VIAL SQ SCH ×3 (11:30→21:00)
[2017-04-24] MEDS ORDERED: Acetaminophen 325 MG TABLET PO PRN ×2 (11:36→14:00)
[2017-04-24] MEDS: *HR* Promethazine 25 MG/ML VIAL IVP PRN (13:27)
[2017-04-24] MEDS ORDERED: Ringers Solution, Lactated 1,000 ML IVC SCH (13:45)
[2017-04-24] MEDS ORDERED: D5% in 0.45% NACL 1,000 ML IVC SCH (14:00)
[2017-04-24] MEDS ORDERED: Insulin Regular, Human 100 UNIT/ML IV PRN (14:00)
[2017-04-24] MEDS ORDERED: *HR* Promethazine 25 MG/ML VIAL IVP PRN (14:00)
[2017-04-24] MEDS ORDERED: *HR* Dextrose 50 % in Water (Syg) 50 ML SYRINGE IVP PRN (14:00)
[2017-04-24] MEDS ORDERED: Dextrose Gel 15 GM/37.5 ML TUBE PO PRN ×2 (14:50)
[2017-04-24] MEDS ORDERED: D5% in Water 1,000 ML IVC PRN (14:50)
[2017-04-24] MEDS: Ringers Solution, Lactated 1,000 ML IVC SCH (15:21)
[2017-04-24] MEDS: Insulin LISPRO 300 UNITS/3 ML VIAL SQ SCH (16:10)
[2017-04-25] MEDS: *HR* Dextrose 50 % in Water (Syg) 50 ML SYRINGE IVP PRN ×7 (00:16→18:45)
[2017-04-25] MEDS: Ringers Solution, Lactated 1,000 ML IVC SCH (01:29)
[2017-04-25 04:24] LABS: Basophils % 0.3 %; Eosinophils % 0.5 %; Hematocrit 28.5 % (35.3-44.9); Hemoglobin 9.2 g/dL (11.5-15.4); Immature Granulocytes % 0.3 % (0-4); Lymphocytes # 1.2 K/mcL (0.6-4.6); Mean Corpuscular HGB Conc 32.3 g/dL (31.6-35.5); Mean Corpuscular Hemoglobin 29.6 pg (28.0-33.3); Mean Corpuscular Volume 91.6 fL (83.0-100.0); Mean Platelet Volume 9.3 fL (9.4-12.4); Monocytes # 0.4 K/mcL (0.0-1.3); Monocytes % 6.9 %; Neutrophils # 4.7 K/mcL (1.6-8.9); Platelet Count 231 K/mcL (140-400); Red Blood Count 3.11 M/mcL (3.82-4.97); Red Cell Distribution Width 12.3 % (11.5-14.5)
[2017-04-25 04:32] LABS: VBG Ionized Calcium 1.24 mmol/L (1.15-1.35); VBG PH 7.34 pH Units (7.32-7.42)
[2017-04-25 04:42] LABS: Albumin 2.6 g/dL (3.5-5.7); BUN/Creatinine Ratio 10 (6-26); Blood Urea Nitrogen 7 mg/dL (6-20); Calcium 7.9 mg/dL (8.6-10.3); Carbon Dioxide 23 mEq/L (23-29); Chloride 116 mEq/L (98-107); Glucose 43 mg/dL (70-105); Magnesium 2.1 mg/dL (1.6-2.6); Osmolality,Calculated 289 (280-300); Phosphorous 2.4 mg/dL (2.7-4.5); Potassium 3.3 mEq/L (3.5-5.1); Sodium 142 mEq/L (136-145); eGFR For African Americans > 60 (> 60); eGFR For Non-African Americans > 60 (> 60)
[2017-04-25] MEDS: *HR* Heparin 5,000 UNIT/ML VIAL SQ SCH ×2 (05:10→17:49)
[2017-04-25 05:25] LABS: ABG Base Excess -2 mEq/L (-2 to 3); ABG HCO3 23 mEq/L (21-27); ABG Oxygen Saturation 97 % (95-98); ABG PCO2 40 mmHg (35-45); ABG PH 7.37 pH Units (7.32-7.45); ABG PO2 93 mmHg (85-104); ABG TCO2 24 mEq/L (20-26)
[2017-04-25] MEDS: Insulin LISPRO 300 UNITS/3 ML VIAL SQ SCH ×3 (08:12→16:45)
[2017-04-25] MEDS ORDERED: Insulin DETEMIR 100 UNIT/ML X5UNITS SQ SCH ×3 (09:00→21:00)
--- NOTE | 2017-04-25 09:48 | Pulmonology Progress Note ---
<Bi Alvares - Last Filed: 04/25/17 10:56> Date of Encounter: 04/25/17 Time of Encounter: 09:48 Assessment and Plan (1) DKA (diabetic ketoacidoses) Current Visit: Yes Status: Acute Pt with hx to IDDM type I c multiple admissions for DKA DKA 2/2 to Drug use most likely and missed insulin doses Insulin drip started in ED BG 500 on arrival up to 650 at next check Anion Gap 27 CO2 2 on arrival now 3. Drug screen positive for coacine and Benzos. 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 given Na bicarb DKA corrected Plan: Continue to monitor (4) Sepsis Current Visit: Yes Status: Acute Pt meets sepsis criteria based on WBC 22.8, temp 95.7, Tachycardia 127, Tachypnea 28, LA 2.8 likely 2/2/ DKA Patient received Zosyn in ED Bcx NGTD lungs clear low suspiscion for infection Zosyn stopped CT abd pelvis no acute process viral panel negative Plan: continue to monitor Qualifiers: Sepsis type: sepsis due to unspecified organism Qualified Code(s): A41.9 - Sepsis, unspecified organism (5) Acute kidney injury superimposed on CKD Current Visit: Yes Status: Resolved Resolved BUN 21 Cr 1.67 on admision Patient follows with nephrology for undetermined metabolic acidosis BUN 7 Cr 0.72 today Plan: continue to monitor (6) Diabetes mellitus, with long-term current use of insulin Current Visit: Yes Status: Acute Patient with type I DM with multiple hospitalizations for DKA Plan: See DKA Qualifiers: Diabetes mellitus type: other specified (including CLARENCE) Diabetes mellitus complication status: with ketoacidosis Diabetes mellitus complication detail: with coma Qualified Code(s): E13.11 - Other specified diabetes mellitus with ketoacidosis with coma; Z79.4 - terminologist (current) use of insulin; Z79.4 - USP (current) use of insulin; Z79.4 - USP (current) use of insulin; Z79.4 - terminologist (current) use of insulin (7) Hypertension Current Visit: Yes Status: Acute Pt c Hx of essential HTN On home metoprolol Plan: continue home meds Qualifiers: Hypertension type: essential hypertension Qualified Code(s): I10 - Essential (primary) hypertension (8) DVT prophylaxis Current Visit: Yes Status: Acute Sub Q heparin 5,000 units Q12H Subjective Principal diagnosis: DKA Interval history: Pt alert and oriented, resting comfortably in bed. DKA resolved. Insulin drip off. On SQ SSI Patient reports some nausea and diffuse aches. Patient reports breathing better. Patient stable to transfer to floor. Objective PUL Vital signs: Last Vital Signs Temp 97.3 F L 04/25/17 08:13 Pulse 94 04/25/17 08:13 Resp 12 04/25/17 08:13 BP 145/97 04/25/17 08:13 Pulse Ox 100 04/25/17 08:13 General appearance: no acute distress Eyes: nonicteric ENT: oropharynx moist Neck: supple Effort: normal Auscultation: bilateral: clear Cardiovascular: other (tachycardic) Gastrointestinal: hypoactive bowel sounds, soft Extremities: no cyanosis, no edema Musculoskeletal: no deformities normal mental status, non-focal exam mood appropriate, affect normal Results - Laboratory Findings CBC and BMP: 04/25/17 04:09 04/25/17 04:09 ABG ABG pH 7.37 pH Units (7.32-7.45) 04/25/17 05:21 ABG pCO2 40 mmHg (35-45) 04/25/17 05:21 ABG pO2 93 mmHg (85-104) 04/25/17 05:21 ABG O2 Saturation 97 % (95-98) 04/25/17 05:21 PT/INR, D-dimer PT 11.6 Seconds (9.4-12.1) 04/23/17 11:37 Abnormal lab findings: Abnormal lab results RBC 3.11 M/mcL (3.82-4.97) L 04/25/17 04:09 Hgb 9.2 g/dL (11.5-15.4) L 04/25/17 04:09 Hct 28.5 % (35.3-44.9) L 04/25/17 04:09 MPV 9.3 fL (9.4-12.4) L 04/25/17 04:09 Immature Plt Fraction 1.0 % (1.1-6.1) L 04/24/17 04:20 VBG pCO2 38 mmHg (41-51) L 04/24/17 09:39 VBG pO2 283 mmHg (25-50) H 04/24/17 09:39 VBG HCO3 19 mEq/L (21-27) L 04/24/17 09:39 Mixed VBG pH 6.95 pH Units (7.34-7.36) L 04/23/17 11:19 Mixed VBG pCO2 < 13 mmHg (44-46) L 04/23/17 11:19 Mixed VBG pO2 157 mmHg (35-45) H 04/23/17 11:19 Lactate 4.0 mmol/L (0.7-2.1) H* 04/23/17 16:54 Potassium 3.3 mEq/L (3.5-5.1) L 04/25/17 04:09 Chloride 116 mEq/L (98-107) H 04/25/17 04:09 Glucose 43 mg/dL (70-105) L 04/25/17 04:09 POC Glucose 92 (58-89) H 04/25/17 08:11 Serum Osmolality 341 mOsm/kg (280-300) H 04/23/17 11:37 Calcium 7.9 mg/dL (8.6-10.3) L 04/25/17 04:09 Phosphorus 2.4 mg/dL (2.7-4.5) L 04/25/17 04:09 Total Bilirubin 0.1 mg/dL (0.3-1.0) L 04/23/17 11:37 AST 10 Units/L (13-39) L 04/23/17 11:37 Alkaline Phosphatase 116 Units/L (34-104) H 04/23/17 11:37 Serum Total Protein 4.6 g/dL (6.4-8.9) L 04/23/17 11:37 Albumin 2.6 g/dL (3.5-5.7) L 04/25/17 04:09 Globulin 2.2 g/dL (2.4-3.5) L 04/23/17 11:37 Lipase 10 Units/L (11-82) L 04/23/17 11:37 Beta-Hydroxybutyric Acd > 2.00 mmol/L (0.02-0.27) H 04/23/17 11:37 Ur Specific Cruger 1.029 (1.010-1.025) H 04/23/17 11:43 Urine Protein 30 mg/dL (Neg-Trace) H 04/23/17 11:43 Urine Glucose (UA) >=1000 mg/dL (Normal) H 04/23/17 11:43 Urine Ketones >=160 mg/dL (Negative) H 04/23/17 11:43 Urine Blood Moderate (Negative) H 04/23/17 11:43 Urine Microscopic WBC 5-15 per hpf (0-3) H 04/23/17 11:43 Ur Squamous Epith Cells Many per lpf (None-Few) H 04/23/17 11:43 Salicylates < 5.0 mg/dL (15.0-30.0) L 04/23/17 11:37 U Benzodiazepines Scrn Positive ng/mL (Ygxfpy=956) H 04/23/17 14:45 Urine Cocaine Screen Positive ng/mL (Cutoff= 300) H 04/23/17 14:45 - Clinical Findings Intake & Output: Intake & Output 04/24/17 04/25/17 04/25/17 23:59 07:59 15:59 Intake Total 1250 / 1250 220 / 220 Output Total 400 / 400 225 / 225 75 / 75 Balance -400 / -400 1025 / 1025 145 / 145 Consult Discharge Plan - Plan Referrals: Zehra Jamison, DAVID [Primary Care Provider] - <Krystyna Gil - Last Filed: 04/25/17 17:00> Date of Encounter: 04/25/17 Objective PUL Vital signs: Last Vital Signs Temp 99.5 F 04/25/17 14:58 Pulse 100 01/02/18 14:58 Resp 16 04/25/17 14:58 BP 161/92 04/25/17 14:58 Pulse Ox 100 04/25/17 14:58 Results - Laboratory Findings CBC and BMP: 04/25/17 04:09 04/25/17 04:09 ABG ABG pH 7.37 pH Units (7.32-7.45) 04/25/17 05:21 ABG pCO2 40 mmHg (35-45) 04/25/17 05:21 ABG pO2 93 mmHg (85-104) 04/25/17 05:21 ABG O2 Saturation 97 % (95-98) 04/25/17 05:21 PT/INR, D-dimer PT 11.6 Seconds (9.4-12.1) 04/23/17 11:37 Abnormal lab findings: Abnormal lab results RBC 3.11 M/mcL (3.82-4.97) L 04/25/17 04:09 Hgb 9.2 g/dL (11.5-15.4) L 04/25/17 04:09 Hct 28.5 % (35.3-44.9) L 04/25/17 04:09 MPV 9.3 fL (9.4-12.4) L 04/25/17 04:09 Immature Plt Fraction 1.0 % (1.1-6.1) L 04/24/17 04:20 VBG pCO2 38 mmHg (41-51) L 04/24/17 09:39 VBG pO2 283 mmHg (25-50) H 04/24/17 09:39 VBG HCO3 19 mEq/L (21-27) L 04/24/17 09:39 Mixed VBG pH 6.95 pH Units (7.34-7.36) L 04/23/17 11:19 Mixed VBG pCO2 < 13 mmHg (44-46) L 04/23/17 11:19 Mixed VBG pO2 157 mmHg (35-45) H 04/23/17 11:19 Lactate 4.0 mmol/L (0.7-2.1) H* 04/23/17 16:54 Potassium 3.3 mEq/L (3.5-5.1) L 04/25/17 04:09 Chloride 116 mEq/L (98-107) H 04/25/17 04:09 Glucose 43 mg/dL (70-105) L 04/25/17 04:09 Hemoglobin A1c 10.1 % (-5.6) H 04/25/17 04:09 Serum Osmolality 341 mOsm/kg (280-300) H 04/23/17 11:37 Calcium 7.9 mg/dL (8.6-10.3) L 04/25/17 04:09 Phosphorus 2.4 mg/dL (2.7-4.5) L 04/25/17 04:09 Total Bilirubin 0.1 mg/dL (0.3-1.0) L 04/23/17 11:37 AST 10 Units/L (13-39) L 04/23/17 11:37 Alkaline Phosphatase 116 Units/L (34-104) H 04/23/17 11:37 Serum Total Protein 4.6 g/dL (6.4-8.9) L 04/23/17 11:37 Albumin 2.6 g/dL (3.5-5.7) L 04/25/17 04:09 Globulin 2.2 g/dL (2.4-3.5) L 04/23/17 11:37 Lipase 10 Units/L (11-82) L 04/23/17 11:37 Beta-Hydroxybutyric Acd > 2.00 mmol/L (0.02-0.27) H 04/23/17 11:37 Ur Specific Cruger 1.029 (1.010-1.025) H 04/23/17 11:43 Urine Protein 30 mg/dL (Neg-Trace) H 04/23/17 11:43 Urine Glucose (UA) >=1000 mg/dL (Normal) H 04/23/17 11:43 Urine Ketones >=160 mg/dL (Negative) H 04/23/17 11:43 Urine Blood Moderate (Negative) H 04/23/17 11:43 Urine Microscopic WBC 5-15 per hpf (0-3) H 04/23/17 11:43 Ur Squamous Epith Cells Many per lpf (None-Few) H 04/23/17 11:43 Salicylates < 5.0 mg/dL (15.0-30.0) L 04/23/17 11:37 U Benzodiazepines Scrn Positive ng/mL (Hvqhzv=147) H 04/23/17 14:45 Urine Cocaine Screen Positive ng/mL (Cutoff= 300) H 04/23/17 14:45 - Clinical Findings Intake & Output: Intake & Output 04/25/17 04/25/17 04/25/17 07:59 15:59 23:59 Intake Total 1250 / 1250 580 / 580 430 / 430 Output Total 225 / 225 475 / 475 Balance 1025 / 1025 105 / 105 430 / 430 - Attending Attestation I examined this patient and my medical decision-making was reviewed with the Resident Physician. I agree with the documented findings, disposition and treatment plan as described except to the extent set forth below. Patient seen and examined. Labs, radiology, chart personally reviewed. 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 Vision will need diabetic education. Needs to be very careful regarding her insulin dose. Patient stable to be transferred to the floor. Lines: all lines checked and no evidence of infections Skin: skin care to prevent pressure ulcers per nursing routine care
[2017-04-25] MEDS ORDERED: Ringers Solution, Lactated 1,000 ML IVC SCH (11:14)
[2017-04-25] MEDS ORDERED: Dextrose Gel 15 GM/37.5 ML TUBE PO PRN ×2 (11:14)
[2017-04-25] MEDS ORDERED: Acetaminophen 325 MG TABLET PO PRN (11:14)
[2017-04-25] MEDS ORDERED: D5% in Water 1,000 ML IVC PRN (11:14)
[2017-04-25] MEDS ORDERED: Insulin Regular, Human 100 UNIT/ML IV PRN (11:14)
[2017-04-25 12:05] LABS: Hemoglobin A1C 10.1 %
[2017-04-25] MEDS: D10% in Water 500 ML IVC SCH (16:46)
[2017-04-25] MEDS: *HR* Promethazine 25 MG/ML VIAL IVP PRN (17:50)
[2017-04-25] MEDS ORDERED: *HR* Dextrose 50 % in Water (Syg) 50 ML SYRINGE IVP ONE (18:57)
[2017-04-25] MEDS ORDERED: Insulin LISPRO 300 UNITS/3 ML VIAL SQ SCH (21:00)
[2017-04-26] MEDS: D10% in Water 500 ML IVC SCH ×2 (00:21→08:04)
[2017-04-26] MEDS: *HR* Promethazine 25 MG/ML VIAL IVP PRN ×3 (00:35→18:02)
[2017-04-26] MEDS: *HR* Heparin 5,000 UNIT/ML VIAL SQ SCH ×2 (06:21→17:59)
[2017-04-26] MEDS: Lisinopril-HCTZ 20-12.5mg TABLET PO SCH (11:27)
[2017-04-26] MEDS ORDERED: Insulin Regular, Human 100 UNIT/ML SQ ONE (15:08)
[2017-04-26] MEDS ORDERED: 0.9 % Sodium Chloride 1,000 ML IVC SCH (15:15)
[2017-04-26] MEDS: Insulin LISPRO 300 UNITS/3 ML VIAL SQ SCH ×2 (17:21→20:30)
[2017-04-26] MEDS: *HR* OxyCODONE/APAP 5/325 TABLET PO PRN (17:59)
--- NOTE | 2017-04-26 18:39 | Internal Med Progress Note ---
Date of Encounter: 04/26/17 Time of Encounter: 12:36 - Assessment and plan (1) DKA (diabetic ketoacidoses) Current Visit: No Status: Resolved Qualifiers: Diabetes mellitus type: type 1 Diabetes mellitus complication detail: without coma Qualified Code(s): E10.10 - Type 1 diabetes mellitus with ketoacidosis without coma (2) Hyperglycemia due to type 1 diabetes mellitus Current Visit: No Status: Chronic Assessment and plan: Patient glucose elevated back up in 400s. She has glucose in 50s yesterday and no insulin was administered at that time. Will carefully try to get her glucose level down but need to avoid hypoglycemia. We will give a dose of regular insulin now, place her on a medium dose sliding scale, give IV fluids and then monitor closely. (3) GERD (gastroesophageal reflux disease) Current Visit: No Status: Chronic Qualifiers: Esophagitis presence: without esophagitis Qualified Code(s): K21.9 - Gastro -esophageal reflux disease without esophagitis (4) Abdominal pain Current Visit: No Status: Chronic Qualifiers: Abdominal location: left lower quadrant Qualified Code(s): R10.32 - Left lower quadrant pain (5) Liver cirrhosis secondary to DURAN (nonalcoholic steatohepatitis) Current Visit: No Status: Chronic (6) HLD (hyperlipidemia) Current Visit: No Status: Chronic Qualifiers: Hyperlipidemia type: unspecified Qualified Code(s): E78.5 - Hyperlipidemia , unspecified (7) DVT prophylaxis Current Visit: No Status: Acute Assessment and plan: Heparin - Subjective Interval history: No acute events. She complains of some generalized pain. She has URI type symptoms with headache, cough, runny nose since yesterday. Denies fevers/n/v. - Constitutional Vitals: Temp Pulse Resp BP Pulse Ox 98.4 F 101 14 136/82 97 04/26/17 14:55 04/26/17 14:55 04/26/17 14:55 04/26/17 14:55 04/26/17 14:55 - Head Head exam: Present: atraumatic, normocephalic - Eye Eye exam: Present: PERRL, conjuntiva pink, sclera anicteric Pupils: Present: PERRL - Neck Neck exam general surgery: Present: supple, trachea midline. Absent: lymphadenopathy - Respiratory Respiratory exam: Present: CTAB. Absent: accessory muscle use, rales, rhonchi, wheezes - Cardiovascular Cardiovascular exam: Present: RRR, +S1, +S2. Absent: diastolic murmur, gallop, rubs, systolic murmur - GI/Abdominal GI/Abdominal exam: Present: normal bowel sounds, soft, no peritoneal signs. Absent: distended, tenderness - Extremities Exam Extremities exam: Present: warm, radial pulses palpable and symmetrical. Absent : calf tenderness, cyanotic, pedal edema - Neurological Exam Neurological exam: Present: CN II-XII intact, oriented X3, no focal deficits. Absent: pronater drift, facial droop, speech deficit - Skin Skin exam: Present: dry, intact Internal Medicine: Result - Labs CBC & Chem 7: 04/25/17 04:09 04/25/17 04:09 - ABG Interpretation ABG results: ABG ABG pH 7.37 pH Units (7.32-7.45) 04/25/17 05:21 ABG pCO2 40 mmHg (35-45) 04/25/17 05:21 ABG pO2 93 mmHg (85-104) 04/25/17 05:21 ABG O2 Saturation 97 % (95-98) 04/25/17 05:21 PT/INR, D-dimer PT 11.6 Seconds (9.4-12.1) 04/23/17 11:37 - Impressions Impressions Abdomen/Pelvis CT 04/23/17 14:35 IMPRESSION: No acute findings. D/ / Corby Ghosh MD / Corby Ghosh MD Interpreting Provider: Corby Ghosh MD Consult Discharge Plan - Plan Referrals: Zehra Jamison CNP [Primary Care Provider] - 05/10/17 3:15 pm
[2017-04-26] MEDS ORDERED: Insulin DETEMIR 100 UNIT/ML X5UNITS SQ SCH (21:00)
[2017-04-27] MEDS: 0.9 % Sodium Chloride 1,000 ML IVC SCH ×3 (02:25→17:24)
[2017-04-27] MEDS: *HR* OxyCODONE/APAP 5/325 TABLET PO PRN ×3 (02:25→20:13)
[2017-04-27] MEDS: *HR* Promethazine 25 MG/ML VIAL IVP PRN ×3 (02:25→20:13)
[2017-04-27] MEDS: *HR* Heparin 5,000 UNIT/ML VIAL SQ SCH ×2 (05:53→17:20)
[2017-04-27 06:36] LABS: Basophils % 0.7 %; Eosinophils # 0.1 K/mcL (0.0-0.6); Eosinophils % 2.1 %; Hematocrit 26.3 % (35.3-44.9); Immature Granulocytes % 4.3 % (0-4); Lymphocytes # 1.4 K/mcL (0.6-4.6); Lymphocytes % 32.9 %; Mean Corpuscular HGB Conc 34.2 g/dL (31.6-35.5); Mean Corpuscular Hemoglobin 30.1 pg (28.0-33.3); Mean Platelet Volume 10.5 fL (9.4-12.4); Monocytes # 0.4 K/mcL (0.0-1.3); Monocytes % 9.5 %; Neutrophils # 2.1 K/mcL (1.6-8.9); Nucleated Red Blood Cells 0.5 /100 WBC (0); Platelet Count 172 K/mcL (140-400); Red Blood Count 2.99 M/mcL (3.82-4.97); Red Cell Distribution Width 11.9 % (11.5-14.5); Segmented Neutrophils % 50.5 %
[2017-04-27 06:46] LABS: BUN/Creatinine Ratio 8 (6-26); Blood Urea Nitrogen 5 mg/dL (6-20); Carbon Dioxide 25 mEq/L (23-29); Chloride 113 mEq/L (98-107); Glucose 40 mg/dL (70-105); Osmolality,Calculated 292 (280-300); Sodium 144 mEq/L (136-145); eGFR For African Americans > 60 (> 60); eGFR For Non-African Americans > 60 (> 60)
[2017-04-27] MEDS: Insulin LISPRO 300 UNITS/3 ML VIAL SQ SCH ×4 (07:56→20:14)
[2017-04-27] MEDS: Lisinopril-HCTZ 20-12.5mg TABLET PO SCH (07:56)
--- NOTE | 2017-04-27 18:05 | Internal Med Progress Note ---
Date of Encounter: 04/27/17 Time of Encounter: 18:02 - Assessment and plan (1) DKA (diabetic ketoacidoses) Current Visit: No Status: Resolved Qualifiers: Diabetes mellitus type: type 1 Diabetes mellitus complication detail: without coma Qualified Code(s): E10.10 - Type 1 diabetes mellitus with ketoacidosis without coma (2) Hyperglycemia due to type 1 diabetes mellitus Current Visit: No Status: Chronic Assessment and plan: Patient has complicated method of controlling her diabetes at home. She told me she does not follow what is prescribed to her. Because her appetite is generally poor, she gives herself 5 units of Levemir during the day and then does a sliding scale throughout the day. 10 units of levemir yesterday sent patient hypoglycemic. Will do 5 units starting HS and monitor. Continue with ISS. (3) GERD (gastroesophageal reflux disease) Current Visit: No Status: Chronic Assessment and plan: Will start omeprazole, goal for 14 days. Qualifiers: Esophagitis presence: without esophagitis Qualified Code(s): K21.9 - Gastro -esophageal reflux disease without esophagitis (4) Abdominal pain Current Visit: No Status: Chronic Assessment and plan: Patient being monitored, possibly from viral gastroenteritis. Continue supportive care. Qualifiers: Abdominal location: left lower quadrant Qualified Code(s): R10.32 - Left lower quadrant pain (5) Liver cirrhosis secondary to DURAN (nonalcoholic steatohepatitis) Current Visit: No Status: Chronic Assessment and plan: Avoid hepatotoxic medications. (6) HLD (hyperlipidemia) Current Visit: No Status: Chronic Qualifiers: Hyperlipidemia type: unspecified Qualified Code(s): E78.5 - Hyperlipidemia , unspecified (7) DVT prophylaxis Current Visit: No Status: Acute Assessment and plan: Heparin - Subjective Interval history: Appetite still poor, food on tray is untouched. Denies fevers/n/v. - Constitutional Vitals: Temp Pulse Resp BP Pulse Ox 98.1 F 98 14 132/83 94 04/27/17 14:53 04/27/17 14:53 04/27/17 14:53 04/27/17 14:53 04/27/17 14:53 - Head Head exam: Present: atraumatic, normocephalic - Eye Eye exam: Present: PERRL, conjuntiva pink, sclera anicteric Pupils: Present: PERRL - Neck Neck exam general surgery: Present: supple, trachea midline. Absent: lymphadenopathy - Respiratory Respiratory exam: Present: CTAB. Absent: accessory muscle use, rales, rhonchi, wheezes - Cardiovascular Cardiovascular exam: Present: RRR, +S1, +S2. Absent: diastolic murmur, gallop, rubs, systolic murmur - GI/Abdominal GI/Abdominal exam: Present: normal bowel sounds, soft, no peritoneal signs. Absent: distended, tenderness - Extremities Exam Extremities exam: Present: warm, radial pulses palpable and symmetrical. Absent : calf tenderness, cyanotic, pedal edema - Neurological Exam Neurological exam: Present: CN II-XII intact, oriented X3, no focal deficits. Absent: pronater drift, facial droop, speech deficit - Skin Skin exam: Present: dry, intact Internal Medicine: Result - Labs CBC & Chem 7: 04/27/17 06:00 04/27/17 06:00 Labs: Short CBC 04/27/17 Range/Units 06:00 WBC 4.2 L (4.3-11.1) K/mcL Hgb 9.0 L (11.5-15.4) g/dL Hct 26.3 L (35.3-44.9) % Plt Count 172 (140-400) K/mcL Neutrophils # 2.1 (1.6-8.9) K/mcL BMP 04/27/17 06:00 Sodium 144 Potassium 4.0 Chloride 113 H Carbon Dioxide 25 BUN 5 L Creatinine 0.60 Glucose 40 L* Calcium 8.0 L - ABG Interpretation ABG results: ABG ABG pH 7.37 pH Units (7.32-7.45) 04/25/17 05:21 ABG pCO2 40 mmHg (35-45) 04/25/17 05:21 ABG pO2 93 mmHg (85-104) 04/25/17 05:21 ABG O2 Saturation 97 % (95-98) 04/25/17 05:21 PT/INR, D-dimer PT 11.6 Seconds (9.4-12.1) 04/23/17 11:37 Consult Discharge Plan - Plan Referrals: Zehra Jamison, DAVID [Primary Care Provider] - 05/10/17 3:15 pm
[2017-04-27] MEDS: Insulin DETEMIR 100 UNIT/ML X5UNITS SQ SCH (20:12)
[2017-04-27] MEDS: Acetaminophen 325 MG TABLET PO PRN (23:55)
[2017-04-28] MEDS: 0.9 % Sodium Chloride 1,000 ML IVC SCH ×2 (01:22→16:23)
[2017-04-28] MEDS: *HR* Heparin 5,000 UNIT/ML VIAL SQ SCH ×2 (05:07→16:34)
[2017-04-28] MEDS: *HR* OxyCODONE/APAP 5/325 TABLET PO PRN ×3 (05:07→21:10)
[2017-04-28] MEDS: *HR* Promethazine 25 MG/ML VIAL IVP PRN ×3 (05:08→21:09)
[2017-04-28] MEDS: Lisinopril-HCTZ 20-12.5mg TABLET PO SCH (08:44)
[2017-04-28] MEDS: Insulin LISPRO 300 UNITS/3 ML VIAL SQ SCH ×4 (08:55→21:03)
--- NOTE | 2017-04-28 18:15 | Internal Med Progress Note ---
Date of Encounter: 04/28/17 Time of Encounter: 18:12 - Assessment and plan (1) DKA (diabetic ketoacidoses) Current Visit: No Status: Resolved Qualifiers: Diabetes mellitus type: type 1 Diabetes mellitus complication detail: without coma Qualified Code(s): E10.10 - Type 1 diabetes mellitus with ketoacidosis without coma (2) Diarrhea Current Visit: No Status: Resolved Assessment and plan: Possibly viral illness. Will give IV fluid hydration if needed. IV fluid is held today to promote appetite. - obtain stool studies. - continue supportive care Qualifiers: Diarrhea type: unspecified type Qualified Code(s): R19.7 - Diarrhea, unspecified (3) Hyperglycemia due to type 1 diabetes mellitus Current Visit: No Status: Chronic Assessment and plan: Patient has complicated method of controlling her diabetes at home. She told me she does not follow what is prescribed to her. Because her appetite is generally poor, she gives herself 5 units of Levemir during the day and then does a sliding scale throughout the day. When she gets 10 units Levemir she got hypoglycemic. 04/27/17 switched to 5 units Levemir at night. Continue with ISS. (4) GERD (gastroesophageal reflux disease) Current Visit: No Status: Chronic Assessment and plan: Will start omeprazole, goal for 14 days. Qualifiers: Esophagitis presence: without esophagitis Qualified Code(s): K21.9 - Gastro -esophageal reflux disease without esophagitis (5) Abdominal pain Current Visit: No Status: Chronic Assessment and plan: Patient being monitored, possibly from viral gastroenteritis. Continue supportive care. Qualifiers: Abdominal location: left lower quadrant Qualified Code(s): R10.32 - Left lower quadrant pain (6) Liver cirrhosis secondary to DURAN (nonalcoholic steatohepatitis) Current Visit: No Status: Chronic Assessment and plan: Avoid hepatotoxic medications. (7) HLD (hyperlipidemia) Current Visit: No Status: Chronic Qualifiers: Hyperlipidemia type: unspecified Qualified Code(s): E78.5 - Hyperlipidemia , unspecified (8) DVT prophylaxis Current Visit: No Status: Acute Assessment and plan: Heparin - Subjective Interval history: Patient only ate 10% of meals today, poor appetite. Complains of diarrhea and abdominal discomfort. Denies fevers/chills, shortness of breath - Constitutional Vitals: Temp Pulse Resp BP Pulse Ox 99.0 F 96 14 147/86 97 01/05/18 14:11 04/28/17 14:11 04/28/17 14:11 04/28/17 14:13 04/28/17 14:11 General appearance: Present: A&O X 3, no acute distress, answers questions appropriately - Head Head exam: Present: atraumatic, normocephalic - Eye Eye exam: Present: PERRL, conjuntiva pink, sclera anicteric Pupils: Present: PERRL - Neck Neck exam general surgery: Present: supple, trachea midline. Absent: lymphadenopathy - Respiratory Respiratory exam: Present: CTAB. Absent: accessory muscle use, rales, rhonchi, wheezes - Cardiovascular Cardiovascular exam: Present: RRR, +S1, +S2. Absent: diastolic murmur, gallop, rubs, systolic murmur - GI/Abdominal GI/Abdominal exam: Present: normal bowel sounds, soft, no peritoneal signs. Absent: distended, tenderness - Extremities Exam Extremities exam: Present: warm, radial pulses palpable and symmetrical. Absent : calf tenderness, cyanotic, pedal edema - Neurological Exam Neurological exam: Present: CN II-XII intact, oriented X3, no focal deficits. Absent: pronater drift, facial droop, speech deficit - Skin Skin exam: Present: dry, intact Internal Medicine: Result - Labs CBC & Chem 7: 04/27/17 06:00 04/27/17 06:00 - ABG Interpretation ABG results: ABG ABG pH 7.37 pH Units (7.32-7.45) 04/25/17 05:21 ABG pCO2 40 mmHg (35-45) 04/25/17 05:21 ABG pO2 93 mmHg (85-104) 04/25/17 05:21 ABG O2 Saturation 97 % (95-98) 04/25/17 05:21 PT/INR, D-dimer PT 11.6 Seconds (9.4-12.1) 04/23/17 11:37 Consult Discharge Plan - Plan Referrals: Zehra Jamison CNP [Primary Care Provider] - 05/10/17 3:15 pm
[2017-04-28] MEDS: Ringers Solution, Lactated 1,000 ML IVC SCH (19:42)
[2017-04-28] MEDS: Insulin DETEMIR 100 UNIT/ML X5UNITS SQ SCH (21:10)
[2017-04-29] MEDS: *HR* Promethazine 25 MG/ML VIAL IVP PRN ×3 (03:07→18:36)
[2017-04-29] MEDS: Acetaminophen 325 MG TABLET PO PRN (03:08)
[2017-04-29] MEDS: *HR* Heparin 5,000 UNIT/ML VIAL SQ SCH ×2 (05:52→17:39)
[2017-04-29 05:53] LABS: Basophils % 0.4 %; Eosinophils # 0.2 K/mcL (0.0-0.6); Eosinophils % 3.9 %; Hematocrit 24.7 % (35.3-44.9); Hemoglobin 7.9 g/dL (11.5-15.4); Immature Granulocytes % 0.6 % (0-4); Lymphocytes % 42.5 %; Mean Corpuscular Hemoglobin 28.9 pg (28.0-33.3); Mean Corpuscular Volume 90.5 fL (83.0-100.0); Monocytes # 0.5 K/mcL (0.0-1.3); Monocytes % 9.7 %; Nucleated Red Blood Cells 0.4 /100 WBC (0); Platelet Count 231 K/mcL (140-400); Red Blood Count 2.73 M/mcL (3.82-4.97); Red Cell Distribution Width 11.8 % (11.5-14.5); Segmented Neutrophils % 42.9 %
[2017-04-29 06:43] LABS: BUN/Creatinine Ratio 9 (6-26); Blood Urea Nitrogen 6 mg/dL (6-20); Calcium 7.8 mg/dL (8.6-10.3); Carbon Dioxide 24 mEq/L (23-29); Chloride 107 mEq/L (98-107); Glucose 240 mg/dL (70-105); Osmolality,Calculated 297 (280-300); Potassium 3.5 mEq/L (3.5-5.1); Sodium 141 mEq/L (136-145); eGFR For African Americans > 60 (> 60); eGFR For Non-African Americans > 60 (> 60)
[2017-04-29] MEDS: Insulin LISPRO 300 UNITS/3 ML VIAL SQ SCH ×4 (07:31→21:03)
[2017-04-29] MEDS: Lisinopril-HCTZ 20-12.5mg TABLET PO SCH (07:32)
[2017-04-29] MEDS: *HR* OxyCODONE/APAP 5/325 TABLET PO PRN ×2 (08:03→18:36)
--- NOTE | 2017-04-29 15:08 | Internal Med Progress Note ---
Date of Encounter: 04/29/17 Time of Encounter: 15:06 - Assessment and plan (1) DKA (diabetic ketoacidoses) Current Visit: No Status: Resolved Qualifiers: Diabetes mellitus type: type 1 Diabetes mellitus complication detail: without coma Qualified Code(s): E10.10 - Type 1 diabetes mellitus with ketoacidosis without coma (2) Diarrhea Current Visit: No Status: Resolved Assessment and plan: Possibly viral illness. Will give IV fluid hydration if needed. IV fluid is held today to promote appetite. Pending stool studies Supportive care as needed. Consult Dietary for PO supplementation Will consider a GI if persists. Note an EGD in 08/24/2016 that was unremarkable. Qualifiers: Diarrhea type: unspecified type Qualified Code(s): R19.7 - Diarrhea, unspecified (3) Hyperglycemia due to type 1 diabetes mellitus Current Visit: No Status: Chronic Assessment and plan: Patient has complicated method of controlling her diabetes at home. She told me she does not follow what is prescribed to her. Because her appetite is generally poor, she gives herself 5 units of Levemir during the day and then does a sliding scale throughout the day. 1 When she gets 10 units Levemir she got hypoglycemic. 04/27/17 switched to 5 units Levemir at night. 04/29: Patient only takes 5 units Levemir HS, glucose is 263 in AM and lower norm at 65 this afternoon. Continue with ISS. (4) GERD (gastroesophageal reflux disease) Current Visit: No Status: Chronic Assessment and plan: Will start omeprazole, goal for 14 days. Qualifiers: Esophagitis presence: without esophagitis Qualified Code(s): K21.9 - Gastro -esophageal reflux disease without esophagitis (5) Abdominal pain Current Visit: No Status: Chronic Assessment and plan: Patient being monitored, possibly from viral gastroenteritis. Continue supportive care. 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 On admission, AST and ALT were unremarkable. Alkaline phosphatase was 116. Totoal bilirubin was 0.1. (7) HLD (hyperlipidemia) Current Visit: No Status: Chronic Qualifiers: Hyperlipidemia type: unspecified Qualified Code(s): E78.5 - Hyperlipidemia , unspecified (8) DVT prophylaxis Current Visit: No Status: Acute Assessment and plan: Heparin - Subjective Interval history: 04/28 -Patient only ate 10% of meals today, poor appetite. Complains of diarrhea and abdominal discomfort. Denies fevers/chills, shortness of breath. 04/29 - Patient ate 0% of breakfast, still with diarrhea. - Constitutional Vitals: Temp Pulse Resp BP Pulse Ox 97.8 F 78 14 136/83 98 04/29/17 11:12 04/29/17 11:12 04/29/17 11:12 04/29/17 11:12 04/29/17 11:12 General appearance: Present: A&O X 3, no acute distress, answers questions appropriately - Head Head exam: Present: atraumatic, normocephalic - Eye Eye exam: Present: PERRL, conjuntiva pink, sclera anicteric Pupils: Present: PERRL - Neck Neck exam general surgery: Present: supple, trachea midline. Absent: lymphadenopathy - Respiratory Respiratory exam: Present: CTAB. Absent: accessory muscle use, rales, rhonchi, wheezes - Cardiovascular Cardiovascular exam: Present: RRR, +S1, +S2. Absent: diastolic murmur, gallop, rubs, systolic murmur - GI/Abdominal GI/Abdominal exam: Present: normal bowel sounds, soft, no peritoneal signs. Absent: distended, tenderness - Extremities Exam Extremities exam: Present: warm, radial pulses palpable and symmetrical. Absent : calf tenderness, cyanotic, pedal edema - Neurological Exam Neurological exam: Present: CN II-XII intact, oriented X3, no focal deficits. Absent: pronater drift, facial droop, speech deficit - Psychiatric Psychiatric exam: Present: flat affect - Skin Skin exam: Present: dry, intact Internal Medicine: Result - Labs CBC & Chem 7: 04/29/17 05:29 04/29/17 05:29 Labs: Short CBC 04/29/17 Range/Units 05:29 WBC 4.6 (4.3-11.1) K/mcL Hgb 7.9 L (11.5-15.4) g/dL Hct 24.7 L (35.3-44.9) % Plt Count 231 (140-400) K/mcL Neutrophils # 2.0 (1.6-8.9) K/mcL BMP 04/29/17 05:29 Sodium 141 Potassium 3.5 Chloride 107 Carbon Dioxide 24 BUN 6 Creatinine 0.65 Glucose 240 H Calcium 7.8 L - ABG Interpretation ABG results: ABG ABG pH 7.37 pH Units (7.32-7.45) 04/25/17 05:21 ABG pCO2 40 mmHg (35-45) 04/25/17 05:21 ABG pO2 93 mmHg (85-104) 04/25/17 05:21 ABG O2 Saturation 97 % (95-98) 04/25/17 05:21 PT/INR, D-dimer PT 11.6 Seconds (9.4-12.1) 04/23/17 11:37 Consult Discharge Plan - Plan Referrals: Zehra Jamison, DAVID [Primary Care Provider] - 05/10/17 3:15 pm
[2017-04-29] MEDS: Insulin DETEMIR 100 UNIT/ML X5UNITS SQ SCH (21:03)
[2017-04-30] MEDS: *HR* Promethazine 25 MG/ML VIAL IVP PRN ×4 (02:34→23:56)
[2017-04-30] MEDS: Acetaminophen 325 MG TABLET PO PRN (02:34)
[2017-04-30] MEDS: *HR* Heparin 5,000 UNIT/ML VIAL SQ SCH ×2 (05:56→17:48)
[2017-04-30 07:17] LABS: Basophils % 0.6 %; Eosinophils # 0.2 K/mcL (0.0-0.6); Eosinophils % 3.3 %; Hematocrit 26.6 % (35.3-44.9); Hemoglobin 8.6 g/dL (11.5-15.4); Immature Granulocytes % 0.6 % (0-4); Lymphocytes # 2.1 K/mcL (0.6-4.6); Mean Corpuscular HGB Conc 32.3 g/dL (31.6-35.5); Mean Corpuscular Hemoglobin 29.3 pg (28.0-33.3); Mean Corpuscular Volume 90.5 fL (83.0-100.0); Mean Platelet Volume 9.9 fL (9.4-12.4); Monocytes # 0.4 K/mcL (0.0-1.3); Monocytes % 8.5 %; Neutrophils # 2.4 K/mcL (1.6-8.9); Platelet Count 310 K/mcL (140-400); Red Blood Count 2.94 M/mcL (3.82-4.97); Red Cell Distribution Width 11.8 % (11.5-14.5)
[2017-04-30 07:30] LABS: BUN/Creatinine Ratio 10 (6-26); Blood Urea Nitrogen 7 mg/dL (6-20); Calcium 8.1 mg/dL (8.6-10.3); Carbon Dioxide 25 mEq/L (23-29); Chloride 103 mEq/L (98-107); Glucose 248 mg/dL (70-105); Osmolality,Calculated 292 (280-300); Potassium 3.6 mEq/L (3.5-5.1); Sodium 138 mEq/L (136-145); eGFR For African Americans > 60 (> 60); eGFR For Non-African Americans > 60 (> 60)
[2017-04-30] MEDS: Insulin LISPRO 300 UNITS/3 ML VIAL SQ SCH ×4 (08:11→21:49)
[2017-04-30] MEDS: Lisinopril-HCTZ 20-12.5mg TABLET PO SCH (08:11)
[2017-04-30] MEDS: *HR* OxyCODONE/APAP 5/325 TABLET PO PRN ×2 (11:29→23:56)
--- NOTE | 2017-04-30 13:29 | Internal Med Progress Note ---
Date of Encounter: 04/30/17 Time of Encounter: 13:27 - Assessment and plan (1) DKA (diabetic ketoacidoses) Current Visit: No Status: Resolved Qualifiers: Diabetes mellitus type: type 1 Diabetes mellitus complication detail: without coma Qualified Code(s): E10.10 - Type 1 diabetes mellitus with ketoacidosis without coma (2) Abdominal pain Current Visit: No Status: Chronic Assessment and plan: Patient being monitored, possibly from viral gastroenteritis. Continue supportive care. Opiates may not be helpful for patient, will space Percocet to Q12H Qualifiers: Abdominal location: left lower quadrant Qualified Code(s): R10.32 - Left lower quadrant pain (3) Diarrhea Current Visit: No Status: Resolved Assessment and plan: Possibly viral illness. IV fluid as needed Consulting dietary for supplementation. Will consider a GI if persists. Note an EGD in 08/24/2016 that was unremarkable. Qualifiers: Diarrhea type: unspecified type Qualified Code(s): R19.7 - Diarrhea, unspecified (4) GERD (gastroesophageal reflux disease) Current Visit: No Status: Chronic Assessment and plan: Will start omeprazole, goal for 14 days. Qualifiers: Esophagitis presence: without esophagitis Qualified Code(s): K21.9 - Gastro -esophageal reflux disease without esophagitis (5) Hyperglycemia due to type 1 diabetes mellitus Current Visit: No Status: Chronic Assessment and plan: Patient has complicated method of controlling her diabetes at home. She told me she does not follow what is prescribed to her. Because her appetite is generally poor, she gives herself 5 units of Levemir during the day and then does a sliding scale throughout the day. Gets hypoglycemic with 10 units basal insulin. Currently stable at 5 units HS. Continue with ISS. (6) HLD (hyperlipidemia) Current Visit: No Status: Chronic Qualifiers: Hyperlipidemia type: unspecified Qualified Code(s): E78.5 - Hyperlipidemia , unspecified (7) DVT prophylaxis Current Visit: No Status: Acute Assessment and plan: Heparin - Subjective Interval history: 04/30 -Patient has not eaten any of her meals for past 3 days. Complains of diarrhea and abdominal discomfort but today has not had any bowel movement. Denies fevers/chills, shortness of breath. - Constitutional Vitals: Temp Pulse Resp BP Pulse Ox 97.9 F 83 14 138/92 98 04/30/17 11:28 04/30/17 11:28 04/30/17 11:28 04/30/17 11:28 04/30/17 11:28 General appearance: Present: A&O X 3, no acute distress, answers questions appropriately - Head Head exam: Present: atraumatic, normocephalic - Eye Eye exam: Present: PERRL, conjuntiva pink, sclera anicteric Pupils: Present: PERRL - Neck Neck exam general surgery: Present: supple, trachea midline. Absent: lymphadenopathy - Respiratory Respiratory exam: Present: CTAB. Absent: accessory muscle use, rales, rhonchi, wheezes - Cardiovascular Cardiovascular exam: Present: RRR, +S1, +S2. Absent: diastolic murmur, gallop, rubs, systolic murmur - GI/Abdominal GI/Abdominal exam: Present: normal bowel sounds, soft, no peritoneal signs. Absent: distended, tenderness - Extremities Exam Extremities exam: Present: warm, radial pulses palpable and symmetrical. Absent : calf tenderness, cyanotic, pedal edema - Neurological Exam Neurological exam: Present: CN II-XII intact, oriented X3, no focal deficits. Absent: pronater drift, facial droop, speech deficit - Skin Skin exam: Present: dry, intact Internal Medicine: Result - Labs CBC & Chem 7: 04/30/17 06:57 04/30/17 06:57 Labs: Short CBC 04/30/17 Range/Units 06:57 WBC 5.2 (4.3-11.1) K/mcL Hgb 8.6 L (11.5-15.4) g/dL Hct 26.6 L (35.3-44.9) % Plt Count 310 (140-400) K/mcL Neutrophils # 2.4 (1.6-8.9) K/mcL BMP 04/30/17 06:57 Sodium 138 Potassium 3.6 Chloride 103 Carbon Dioxide 25 BUN 7 Creatinine 0.71 Glucose 248 H Calcium 8.1 L - ABG Interpretation ABG results: ABG ABG pH 7.37 pH Units (7.32-7.45) 04/25/17 05:21 ABG pCO2 40 mmHg (35-45) 04/25/17 05:21 ABG pO2 93 mmHg (85-104) 04/25/17 05:21 ABG O2 Saturation 97 % (95-98) 04/25/17 05:21 PT/INR, D-dimer PT 11.6 Seconds (9.4-12.1) 04/23/17 11:37 Consult Discharge Plan - Plan Referrals: Zehra Jamsion CNP [Primary Care Provider] - 05/10/17 3:15 pm
[2017-04-30] MEDS: 0.9 % Sodium Chloride 1,000 ML IVC SCH ×2 (13:37→22:40)
[2017-04-30] MEDS: Insulin DETEMIR 100 UNIT/ML X5UNITS SQ SCH (21:49)
[2017-05-01 04:25] LABS: Basophils % 0.5 %; Eosinophils # 0.1 K/mcL (0.0-0.6); Eosinophils % 2.3 %; Hematocrit 26.4 % (35.3-44.9); Hemoglobin 8.7 g/dL (11.5-15.4); Immature Granulocytes % 0.7 % (0-4); Lymphocytes % 32.4 %; Mean Corpuscular Hemoglobin 29.6 pg (28.0-33.3); Mean Corpuscular Volume 89.8 fL (83.0-100.0); Mean Platelet Volume 9.8 fL (9.4-12.4); Monocytes # 0.6 K/mcL (0.0-1.3); Monocytes % 9.7 %; Neutrophils # 3.3 K/mcL (1.6-8.9); Platelet Count 338 K/mcL (140-400); Red Blood Count 2.94 M/mcL (3.82-4.97); Red Cell Distribution Width 11.8 % (11.5-14.5); Segmented Neutrophils % 54.4 %
[2017-05-01 04:42] LABS: BUN/Creatinine Ratio 11 (6-26); Blood Urea Nitrogen 7 mg/dL (6-20); Calcium 7.9 mg/dL (8.6-10.3); Carbon Dioxide 27 mEq/L (23-29); Chloride 105 mEq/L (98-107); Glucose 249 mg/dL (70-105); Osmolality,Calculated 290 (280-300); Potassium 3.5 mEq/L (3.5-5.1); Sodium 137 mEq/L (136-145); eGFR For African Americans > 60 (> 60); eGFR For Non-African Americans > 60 (> 60)
[2017-05-01] MEDS: *HR* Heparin 5,000 UNIT/ML VIAL SQ SCH ×2 (06:05→17:55)
[2017-05-01] MEDS: *HR* Promethazine 25 MG/ML VIAL IVP PRN ×3 (06:44→19:41)
[2017-05-01] MEDS: 0.9 % Sodium Chloride 1,000 ML IVC SCH ×2 (06:45→17:56)
[2017-05-01] MEDS: Insulin LISPRO 300 UNITS/3 ML VIAL SQ SCH ×4 (08:10→22:24)
[2017-05-01] MEDS: Lisinopril-HCTZ 20-12.5mg TABLET PO SCH (08:10)
--- NOTE | 2017-05-01 13:09 | Anesthesia Evaluation PreOp ---
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[employer]IC History: Other (legally blind) Other Medical History: Hepatic (cirrhosis), Diabetes Type I, Other (DKAm this admission) Anesthesia History: No Prior Anesthetic Complications, Past Anesthesia (rudy, appy, C/S, sinus) : No Alcohol Use: none Drug use: cocaine Medications and Allergies LORazepam [Ativan] 1 mg PO BID #6 12/18/16 [Rx] Metoprolol [Lopressor] 25 mg PO BID #60 tablet 12/18/16 [Rx] Insulin Glargine,Hum.rec.anlog [Lantus Solostar] 20 unit SQ BID 03/09/17 [ History] Sodium Bicarbonate 650 mg PO DAILY 03/09/17 [History] Cefdinir [Omnicef] 300 mg PO BID #6 capsule 03/12/17 [Rx] Insulin ASPART [NovoLOG] 10 unit SQ TIDWM PRN #5 vial 03/12/17 [Rx] OxyCODONE Immed Rel [Roxicodone 5 MG] 5 mg PO Q6HR PRN #20 tablet 03/12/17 [Rx] Phenazopyridine [Pyridium] 100 mg PO TID PRN #20 tablet 03/12/17 [Rx] Insulin ASPART [Novolog Flexpen] 2 - 10 unit SQ TIDWM 04/23/17 [History] Insulin Glargine,Hum.rec.anlog [Lantus Solostar] 10 - 20 unit SQ HS 04/23/17 [ History] Lisinopril/Hydrochlorothiazide [Zestoretic 20-12.5 mg Tablet] 1 tab PO DAILY [History] Metoprolol [Lopressor] 25 mg PO BID 04/23/17 [History] Sodium Bicarbonate 650 mg PO DAILY 04/23/17 [History] 3 Allergy/AdvReac Type Severity Reaction Status Date / Time hydrocodone Allergy Hives Verified 12/13/16 12:28 - Meds/Allergy Pre-op Review Medications Reviewed: Yes Allergies Reviewed: Yes Beta Blockers on Current Med List: Yes If Beta Blockers taken, Date/Time (Last Dose taken): today 809 Anesthesia Results - Labs 05/01/17 03:25 05/01/17 03:25 - Imaging Additional studies: echo: Impressions: LVEF 60-65%. Normal LV chamber size, wall thickness and function. Normal left ventricular diastolic function. Normal right ventricular structure and function. No evidence of pulmonary hypertension. No significant valvular dysfunction. 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
[2017-05-01] MEDS ORDERED: Lidocaine -MPF 2% 2 ML VIAL ONE (13:41)
[2017-05-01] MEDS ORDERED: Propofol 500 MG/50 ML INFUS..BTL ONE (13:41)
[2017-05-01] MEDS: *HR* OxyCODONE/APAP 5/325 TABLET PO PRN (15:24)
--- NOTE | 2017-05-01 17:05 | Internal Med Progress Note ---
Date of Encounter: 05/01/17 Time of Encounter: 17:03 - Assessment and plan (1) DKA (diabetic ketoacidoses) Current Visit: No Status: Resolved Qualifiers: Diabetes mellitus type: type 1 Diabetes mellitus complication detail: without coma Qualified Code(s): E10.10 - Type 1 diabetes mellitus with ketoacidosis without coma (2) Abdominal pain Current Visit: No Status: Chronic Assessment and plan: Patient being monitored, possibly from viral gastroenteritis. Continue supportive care. Patient having poor PO as well with constant nausea, GI consulted. Qualifiers: Abdominal location: left lower quadrant Qualified Code(s): R10.32 - Left lower quadrant pain (3) Diarrhea Current Visit: No Status: Resolved Assessment and plan: Possibly viral illness. IV fluid as needed Consulting dietary for supplementation. Will consider a GI if persists. Note an EGD in 08/24/2016 that was unremarkable. Qualifiers: Diarrhea type: unspecified type Qualified Code(s): R19.7 - Diarrhea, unspecified (4) GERD (gastroesophageal reflux disease) Current Visit: No Status: Chronic Assessment and plan: Will start omeprazole, goal for 14 days. Qualifiers: Esophagitis presence: without esophagitis Qualified Code(s): K21.9 - Gastro -esophageal reflux disease without esophagitis (5) Hyperglycemia due to type 1 diabetes mellitus Current Visit: No Status: Chronic Assessment and plan: Patient has complicated method of controlling her diabetes at home. She told me she does not follow what is prescribed to her. Because her appetite is generally poor, she gives herself 5 units of Levemir during the day and then does a sliding scale throughout the day. Gets hypoglycemic with 10 units basal insulin. Currently stable at 5 units HS. Continue with ISS. (6) HLD (hyperlipidemia) Current Visit: No Status: Chronic Qualifiers: Hyperlipidemia type: unspecified Qualified Code(s): E78.5 - Hyperlipidemia , unspecified (7) DVT prophylaxis Current Visit: No Status: Acute Assessment and plan: Heparin - Subjective Interval history: Diet still poor. Her boyfriend brought in some chips today, she ate a few of them, otherwise has not eaten anything. - Constitutional Vitals: Temp Pulse Resp BP Pulse Ox 98.3 F 86 20 128/79 95 05/01/17 15:20 05/01/17 15:20 05/01/17 15:20 05/01/17 15:20 05/01/17 15:20 General appearance: Present: A&O X 3, no acute distress, answers questions appropriately - Head Head exam: Present: atraumatic, normocephalic - Eye Eye exam: Present: PERRL, conjuntiva pink, sclera anicteric Pupils: Present: PERRL - Neck Neck exam general surgery: Present: supple, trachea midline. Absent: lymphadenopathy - Respiratory Respiratory exam: Present: CTAB. Absent: accessory muscle use, rales, rhonchi, wheezes - Cardiovascular Cardiovascular exam: Present: RRR, +S1, +S2. Absent: diastolic murmur, gallop, rubs, systolic murmur - GI/Abdominal GI/Abdominal exam: Present: normal bowel sounds, soft, no peritoneal signs. Absent: distended, tenderness - Extremities Exam Extremities exam: Present: warm, radial pulses palpable and symmetrical. Absent : calf tenderness, cyanotic, pedal edema - Neurological Exam Neurological exam: Present: CN II-XII intact, oriented X3, no focal deficits. Absent: pronater drift, facial droop, speech deficit - Skin Skin exam: Present: dry, intact Internal Medicine: Result - Labs CBC & Chem 7: 05/01/17 03:25 05/01/17 03:25 Labs: Short CBC 05/01/17 Range/Units 03:25 WBC 6.1 (4.3-11.1) K/mcL Hgb 8.7 L (11.5-15.4) g/dL Hct 26.4 L (35.3-44.9) % Plt Count 338 (140-400) K/mcL Neutrophils # 3.3 (1.6-8.9) K/mcL BMP 05/01/17 03:25 Sodium 137 Potassium 3.5 Chloride 105 Carbon Dioxide 27 BUN 7 Creatinine 0.61 Glucose 249 H Calcium 7.9 L - ABG Interpretation ABG results: ABG ABG pH 7.37 pH Units (7.32-7.45) 04/25/17 05:21 ABG pCO2 40 mmHg (35-45) 04/25/17 05:21 ABG pO2 93 mmHg (85-104) 04/25/17 05:21 ABG O2 Saturation 97 % (95-98) 04/25/17 05:21 PT/INR, D-dimer PT 11.6 Seconds (9.4-12.1) 04/23/17 11:37 Consult Discharge Plan - Plan Referrals: Zehra Jamison CNP [Primary Care Provider] - 05/10/17 3:15 pm
[2017-05-01] MEDS: Acetaminophen 325 MG TABLET PO PRN (17:58)
[2017-05-01] MEDS: Insulin DETEMIR 100 UNIT/ML X5UNITS SQ SCH (22:24)
--- NOTE | 2017-05-01 22:37 | Gastroenterology Consult Note ---
Date of Encounter: 05/01/17 Time of Encounter: 13:00 - Assessment and plan (1) Abdominal pain Current Visit: No Status: Chronic Assessment and plan: along with NV and inability to eat in this pt with long standing DM. R/o gastroparesis. R/o GI causes of persistent NV. Rec: EGD and if negative then GE scan. Meanwhile symtomatic treatment. Qualifiers: Abdominal location: left lower quadrant Qualified Code(s): R10.32 - Left lower quadrant pain - Time Spent With Patient Total time spent is greater than 50% in coordination of care (as documented) at patient's floor/unit and/or counseling patient: GI History of Present Illness - Data of Consult Consult date: 05/01/17 Requesting Physician: Jackie Michael MD - Consult Narrative Reason for consult: Persistent NV and not able to eat History of present illness: Ms. Sierra is a 31 year old female long standing Hx of DM admitted with DKA . Pt with now persistent vomitting with inability to eat and felling full after eating samll amount with bloated sensations. No trouble swallowing , Past Med Surg Social Fam HX - Past Medical History Medical history: diabetes Psychiatric history: anxiety - Past Surgical History Surgical History: appendectomy, , cholecystectomy, sinus surgery, other - Social History Smoking Status: Unknown if ever smoked Smokeless Tobacco Status: No Alcohol use: none Drug use: cocaine - Family History Grandmother Family Member Ethnicity: Non- Living Status: Still Living Hx Family Cardiac Disorders: No Hx Family Respiratory Disorders: No Hx Family Cancer: No Hx Family GI Disorders: No Hx Family Endocrine Disorder: Yes (type 2 diabetes) Hx Family Neuromuscular Disorders: No Hx Family Neurologic Disorders: Yes (stroke) Hx Family HEENT Disorders: No Hx Family Autoimmune Disorders: No Review of Systems: as per [place] - Constitutional Vitals: Temp Pulse Resp BP Pulse Ox 97.9 F 91 16 120/71 97 05/01/17 21:27 05/01/17 21:27 05/01/17 21:27 05/01/17 21:27 05/01/17 21:27 CONSTITUTIONAL:~alert, no acute distress.~HEAD:~normocephalic.~EYES:~no jaundice.~NECK:~no obvious swelling.~HEART:~regular rate and rhythm, no murmurs. ~LUNGS:~bilateral good air entry.~ABDOMEN:~mildly distended, soft, non tander, no masses pulpable, no organomegaly.~RECTAL EXAM:~Deferred.~EXTREMITIES:~no clubbing, cyanosis or edema.~SKIN:~no stigmata of chronic liver disease.~ NEUROLOGIC:~no obvious focal defect.~~~~ Results - Labs CBC & Chem 7: 05/01/17 03:25 05/01/17 03:25 Labs: Last Result Calcium 7.9 mg/dL (8.6-10.3) L 05/01/17 03:25 Troponin I < 0.03 ng/mL (< 0.04) 04/23/17 11:37 Salicylates < 5.0 mg/dL (15.0-30.0) L 04/23/17 11:37 Urine Opiates Screen Negative ng/mL (Glucrv=850) 04/23/17 14:45 Entire Visit Hgb 8.7 g/dL (11.5-15.4) L 05/01/17 03:25 Hct 26.4 % (35.3-44.9) L 05/01/17 03:25 PT 11.6 Seconds (9.4-12.1) 04/23/17 11:37 Total Bilirubin 0.1 mg/dL (0.3-1.0) L 04/23/17 11:37 AST 10 Units/L (13-39) L 04/23/17 11:37 ALT 8 Units/L (7-52) 04/23/17 11:37 Lipase 10 Units/L (11-82) L 04/23/17 11:37 - ABG ABG results: ABG ABG pH 7.37 pH Units (7.32-7.45) 04/25/17 05:21 ABG pCO2 40 mmHg (35-45) 04/25/17 05:21 ABG pO2 93 mmHg (85-104) 04/25/17 05:21 ABG O2 Saturation 97 % (95-98) 04/25/17 05:21 PT/INR, D-dimer PT 11.6 Seconds (9.4-12.1) 04/23/17 11:37 Consult Discharge Plan - Plan Referrals: Zehra Jamison CNP [Primary Care Provider] - 05/10/17 3:15 pm
[2017-05-02] MEDS: *HR* OxyCODONE Immed Rel 5 MG TABLET PO PRN ×3 (00:40→16:06)
[2017-05-02] MEDS: 0.9 % Sodium Chloride 1,000 ML IVC SCH ×3 (03:38→20:39)
[2017-05-02] MEDS: *HR* Promethazine 25 MG/ML VIAL IVP PRN ×3 (03:39→18:44)
[2017-05-02 05:27] LABS: Basophils % 0.6 %; Eosinophils # 0.1 K/mcL (0.0-0.6); Eosinophils % 2.5 %; Hematocrit 28.4 % (35.3-44.9); Hemoglobin 8.9 g/dL (11.5-15.4); Immature Granulocytes % 1.1 % (0-4); Lymphocytes # 2.1 K/mcL (0.6-4.6); Lymphocytes % 43.4 %; Mean Corpuscular HGB Conc 31.3 g/dL (31.6-35.5); Mean Corpuscular Hemoglobin 29.2 pg (28.0-33.3); Mean Corpuscular Volume 93.1 fL (83.0-100.0); Mean Platelet Volume 9.8 fL (9.4-12.4); Monocytes # 0.4 K/mcL (0.0-1.3); Monocytes % 8.9 %; Neutrophils # 2.1 K/mcL (1.6-8.9); Nucleated Red Blood Cells 0.6 /100 WBC (0); Platelet Count 341 K/mcL (140-400); Red Blood Count 3.05 M/mcL (3.82-4.97); Red Cell Distribution Width 11.8 % (11.5-14.5); Segmented Neutrophils % 43.5 %
[2017-05-02 05:42] LABS: BUN/Creatinine Ratio 10 (6-26); Blood Urea Nitrogen 7 mg/dL (6-20); Calcium 7.8 mg/dL (8.6-10.3); Carbon Dioxide 13 mEq/L (23-29); Chloride 103 mEq/L (98-107); Glucose 457 mg/dL (70-105); Osmolality,Calculated 300 (280-300); Sodium 136 mEq/L (136-145); eGFR For African Americans > 60 (> 60); eGFR For Non-African Americans > 60 (> 60)
[2017-05-02] MEDS: *HR* Heparin 5,000 UNIT/ML VIAL SQ SCH ×2 (06:51→18:09)
[2017-05-02] MEDS: Lisinopril-HCTZ 20-12.5mg TABLET PO SCH (08:02)
[2017-05-02] MEDS: Insulin LISPRO 300 UNITS/3 ML VIAL SQ SCH ×3 (08:03→18:08)
[2017-05-02 12:55] LABS: VBG HCO3 12 mEq/L (21-27); VBG PCO2 25 mmHg (41-51); VBG PO2 196 mmHg (25-50)
[2017-05-02] MEDS: Insulin DETEMIR 100 UNIT/ML X5UNITS SQ SCH ×2 (14:03→20:39)
[2017-05-02] MEDS ORDERED: 0.9 % Sodium Chloride 1,000 ML IVC SCH (14:45)
--- NOTE | 2017-05-02 16:14 | Internal Med Progress Note ---
Date of Encounter: 05/02/17 Time of Encounter: 16:12 - Assessment and plan (1) DKA (diabetic ketoacidoses) Current Visit: No Status: Acute Assessment and plan: Concern for recurrent DKA s/p missed dose of insulin overnight . Increase IVFs to 200 ml/hr and give 500 ml bolus. Increased insulin dose given. Continue to follow POC BGs Qualifiers: Diabetes mellitus type: type 1 Diabetes mellitus complication detail: without coma Qualified Code(s): E10.10 - Type 1 diabetes mellitus with ketoacidosis without coma (2) Nausea & vomiting Current Visit: No Status: Acute Assessment and plan: continue Phenergan. Allergic to Zofran. Continue IVF as noted above Qualifiers: Vomiting type: unspecified Vomiting Intractability: non-intractable Qualified Code(s): R11.2 - Nausea with vomiting, unspecified (3) Diarrhea Current Visit: No Status: Resolved Assessment and plan: Recheck K+ and replete as needed. Qualifiers: Diarrhea type: unspecified type Qualified Code(s): R19.7 - Diarrhea, unspecified (4) Abdominal pain Current Visit: No Status: Chronic Qualifiers: Abdominal location: generalized Qualified Code(s): R10.84 - Generalized abdominal pain (5) 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 - Subjective Interval history: She missed dose of insulin yesterday evening and BG > 400 this am with signs of impending DKA. Still nauseous but no more vomiting. Abdominal pain unchanged. No diarrhea this am. - Constitutional Vitals: Temp Pulse Resp BP Pulse Ox 98.3 F 95 16 107/67 98 05/02/17 14:26 05/02/17 14:26 05/02/17 14:26 05/02/17 14:26 05/02/17 14:26 General appearance: Present: A&O X 3, no acute distress, answers questions appropriately Exam: AAAx3 in no acute distress - Head Additional comments: Atraumatic and normocephalic - Eye Eye exam: Present: EOMI, PERRL - ENT ENT exam: Present: normal exam - Neck Additional comments: No cervical LAD. Thyroid midline without thyromegally or nodules - Respiratory Respiratory exam: Present: CTAB - GI/Abdominal Additional comments: Soft, nondistended with generalized abdominal pain without gaurding or rebound tenderness - Extremities Exam Additional comments: No pedal edema and normal distal pulses - Neurological Exam Additional comments: No obvious focal neurological deficits Internal Medicine: Result - Labs CBC & Chem 7: 05/02/17 05:05 05/02/17 05:05 Labs: Short CBC 05/02/17 Range/Units 05:05 WBC 4.7 (4.3-11.1) K/mcL Hgb 8.9 L (11.5-15.4) g/dL Hct 28.4 L (35.3-44.9) % Plt Count 341 (140-400) K/mcL Neutrophils # 2.1 (1.6-8.9) K/mcL BMP 05/02/17 05:05 Sodium 136 Potassium 4.0 Chloride 103 Carbon Dioxide 13 L BUN 7 Creatinine 0.70 Glucose 457 H Calcium 7.8 L - ABG Interpretation ABG results: ABG ABG pH 7.37 pH Units (7.32-7.45) 04/25/17 05:21 ABG pCO2 40 mmHg (35-45) 04/25/17 05:21 ABG pO2 93 mmHg (85-104) 04/25/17 05:21 ABG O2 Saturation 97 % (95-98) 04/25/17 05:21 PT/INR, D-dimer PT 11.6 Seconds (9.4-12.1) 04/23/17 11:37 Interpretation: metabolic acidosis, venous blood gas Consult Discharge Plan - Plan Referrals: Zehra Jamison CNP [Primary Care Provider] - 05/10/17 3:15 pm
[2017-05-02] MEDS ORDERED: *HR* Morphine 2 MG/ML SYRINGE IVP ONE (20:57)
[2017-05-03] MEDS: Insulin LISPRO 300 UNITS/3 ML VIAL SQ SCH ×6 (00:04→23:41)
[2017-05-03] MEDS: *HR* Promethazine 25 MG/ML VIAL IVP PRN ×3 (01:07→16:14)
[2017-05-03] MEDS: 0.9 % Sodium Chloride 1,000 ML IVC SCH ×4 (01:10→11:49)
[2017-05-03] MEDS: *HR* Heparin 5,000 UNIT/ML VIAL SQ SCH ×2 (05:53→17:58)
[2017-05-03 06:09] LABS: Basophils % 0.4 %; Eosinophils # 0.1 K/mcL (0.0-0.6); Eosinophils % 1.8 %; Hematocrit 24.9 % (35.3-44.9); Hemoglobin 8.2 g/dL (11.5-15.4); Immature Granulocytes % 1.4 % (0-4); Lymphocytes # 2.4 K/mcL (0.6-4.6); Lymphocytes % 46.8 %; Mean Corpuscular HGB Conc 32.9 g/dL (31.6-35.5); Mean Corpuscular Volume 91.2 fL (83.0-100.0); Mean Platelet Volume 9.2 fL (9.4-12.4); Monocytes # 0.5 K/mcL (0.0-1.3); Monocytes % 9.2 %; Neutrophils # 2.1 K/mcL (1.6-8.9); Platelet Count 343 K/mcL (140-400); Red Blood Count 2.73 M/mcL (3.82-4.97); Segmented Neutrophils % 40.4 %
[2017-05-03 06:27] LABS: BUN/Creatinine Ratio 13 (6-26); Blood Urea Nitrogen 8 mg/dL (6-20); Calcium 7.7 mg/dL (8.6-10.3); Carbon Dioxide 22 mEq/L (23-29); Chloride 117 mEq/L (98-107); Glucose 80 mg/dL (70-105); Osmolality,Calculated 291 (280-300); Potassium 3.1 mEq/L (3.5-5.1); Sodium 142 mEq/L (136-145); eGFR For African Americans > 60 (> 60); eGFR For Non-African Americans > 60 (> 60)
[2017-05-03] MEDS: Lisinopril 20 MG TABLET PO SCH (09:06)
[2017-05-03] MEDS: Insulin DETEMIR 100 UNIT/ML X5UNITS SQ SCH ×2 (09:56→20:13)
[2017-05-03] MEDS: *HR* OxyCODONE Immed Rel 5 MG TABLET PO PRN ×2 (14:06→23:34)
[2017-05-03] MEDS ORDERED: Potassium Chloride 40 MEQ, Lidocaine 1% 2 ML in D5% in Water 500 ML IVPB ONE (15:01)
--- NOTE | 2017-05-03 18:23 | Internal Med Progress Note ---
Date of Encounter: 05/03/17 Time of Encounter: 18:21 (Pt seen earlier in day) - Assessment and plan (1) DKA (diabetic ketoacidoses) Current Visit: No Status: Resolved Qualifiers: Diabetes mellitus type: type 1 Diabetes mellitus complication detail: without coma Qualified Code(s): E10.10 - Type 1 diabetes mellitus with ketoacidosis without coma (2) Nausea & vomiting Current Visit: No Status: Acute Assessment and plan: Continue antiemetics and add reglan Qualifiers: Vomiting type: unspecified Vomiting Intractability: non-intractable Qualified Code(s): R11.2 - Nausea with vomiting, unspecified (3) Abdominal pain Current Visit: No Status: Chronic Assessment and plan: EGD unrevealing but biopsies pending. Likely N/V and abdominal pain are associated with gastroparesis secondary to poorly controlled DM. continue current pain mgt but change Dilaudid to q6 hrs. Decrease IVFs as mild abdominal distension may be partly due to some fluid overload. 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 pain and distention. Nausea w/o vomiting - Constitutional Vitals: Temp Pulse Resp BP Pulse Ox 98.3 F 85 14 121/80 98 05/03/17 15:21 05/03/17 15:21 05/03/17 15:21 05/03/17 15:21 05/03/17 15:21 General appearance: Present: mild distress, A&O X 3, answers questions appropriately - Head Head exam: Present: atraumatic, normal inspection, normocephalic - Eye Eye exam: Present: EOMI, sclera anicteric. Absent: nystagmus, scleral icterus, conjuntiva pink - Neck Neck exam general surgery: Present: supple, trachea midline. Absent: lymphadenopathy, nuchal rigidity, thyromegaly - Respiratory Respiratory exam: Present: CTAB. Absent: accessory muscle use, rales, respiratory distress, rhonchi, stridor, wheezes, tachypnea - Cardiovascular Cardiovascular exam: Present: RRR, +S1, +S2. Absent: diastolic murmur, gallop, rubs, systolic murmur - GI/Abdominal GI/Abdominal exam: Present: normal bowel sounds, soft, no peritoneal signs. Absent: distended, tenderness - Extremities Exam Extremities exam: Present: pedal edema, warm. Absent: calf tenderness, cyanotic , joint swelling - Neurological Exam Neurological exam: Present: CN II-XII intact, oriented X3, no focal deficits. Absent: pronater drift, facial droop, speech deficit - Skin Skin exam: Present: dry, intact Internal Medicine: Result - Labs CBC & Chem 7: 05/03/17 05:42 05/03/17 05:42 Labs: Short CBC 05/03/17 Range/Units 05:42 WBC 5.1 (4.3-11.1) K/mcL Hgb 8.2 L (11.5-15.4) g/dL Hct 24.9 L (35.3-44.9) % Plt Count 343 (140-400) K/mcL Neutrophils # 2.1 (1.6-8.9) K/mcL BMP 05/03/17 05:42 Sodium 142 Potassium 3.1 L Chloride 117 H Carbon Dioxide 22 L BUN 8 Creatinine 0.63 Glucose 80 Calcium 7.7 L - ABG Interpretation ABG results: ABG ABG pH 7.37 pH Units (7.32-7.45) 04/25/17 05:21 ABG pCO2 40 mmHg (35-45) 04/25/17 05:21 ABG pO2 93 mmHg (85-104) 04/25/17 05:21 ABG O2 Saturation 97 % (95-98) 04/25/17 05:21 PT/INR, D-dimer PT 11.6 Seconds (9.4-12.1) 04/23/17 11:37 - VTE Documentation of Mechanical Device: Graduated compression elastic hosiery Consult Discharge Plan - Plan Referrals: Zehra Jamison CNP [Primary Care Provider] - 05/10/17 3:15 pm
[2017-05-03 21:23] LABS: Basophils % 0.6 %; Eosinophils # 0.1 K/mcL (0.0-0.6); Eosinophils % 2.3 %; Hematocrit 26.8 % (35.3-44.9); Hemoglobin 8.8 g/dL (11.5-15.4); Immature Granulocytes % 1.3 % (0-4); Lymphocytes # 2.1 K/mcL (0.6-4.6); Lymphocytes % 43.6 %; Mean Corpuscular HGB Conc 32.8 g/dL (31.6-35.5); Mean Corpuscular Volume 91.5 fL (83.0-100.0); Mean Platelet Volume 9.4 fL (9.4-12.4); Monocytes # 0.4 K/mcL (0.0-1.3); Neutrophils # 2.1 K/mcL (1.6-8.9); Platelet Count 339 K/mcL (140-400); Red Blood Count 2.93 M/mcL (3.82-4.97); Red Cell Distribution Width 12.2 % (11.5-14.5); Segmented Neutrophils % 43.2 %
[2017-05-03] MEDS: Metoclopramide 10 MG/10 ML UD.LIQ PO PRN (23:34)
[2017-05-04] MEDS: 0.9 % Sodium Chloride 1,000 ML IVC SCH ×2 (01:47→05:34)
[2017-05-04 05:26] LABS: Basophils % 0.6 %; Eosinophils # 0.1 K/mcL (0.0-0.6); Eosinophils % 2.8 %; Hemoglobin 8.7 g/dL (11.5-15.4); Immature Granulocytes % 1.3 % (0-4); Lymphocytes # 2.1 K/mcL (0.6-4.6); Lymphocytes % 44.7 %; Mean Corpuscular HGB Conc 32.2 g/dL (31.6-35.5); Mean Corpuscular Hemoglobin 29.1 pg (28.0-33.3); Mean Corpuscular Volume 90.3 fL (83.0-100.0); Mean Platelet Volume 9.3 fL (9.4-12.4); Monocytes # 0.4 K/mcL (0.0-1.3); Monocytes % 8.5 %; Platelet Count 348 K/mcL (140-400); Red Blood Count 2.99 M/mcL (3.82-4.97); Red Cell Distribution Width 12.1 % (11.5-14.5); Segmented Neutrophils % 42.1 %
[2017-05-04] MEDS: *HR* OxyCODONE Immed Rel 5 MG TABLET PO PRN ×3 (05:35→20:21)
[2017-05-04] MEDS: *HR* Heparin 5,000 UNIT/ML VIAL SQ SCH ×2 (05:35→18:04)
[2017-05-04] MEDS: Metoclopramide 10 MG/10 ML UD.LIQ PO PRN (05:35)
[2017-05-04] MEDS: Insulin LISPRO 300 UNITS/3 ML VIAL SQ SCH ×3 (05:40→18:05)
[2017-05-04 05:56] LABS: BUN/Creatinine Ratio 9 (6-26); Blood Urea Nitrogen 5 mg/dL (6-20); Carbon Dioxide 19 mEq/L (23-29); Chloride 117 mEq/L (98-107); Glucose 77 mg/dL (70-105); Osmolality,Calculated 288 (280-300); Potassium 3.4 mEq/L (3.5-5.1); Sodium 141 mEq/L (136-145); eGFR For African Americans > 60 (> 60); eGFR For Non-African Americans > 60 (> 60)
[2017-05-04] MEDS: Lisinopril 20 MG TABLET PO SCH (09:02)
[2017-05-04] MEDS: Insulin DETEMIR 100 UNIT/ML X5UNITS SQ SCH ×2 (09:04→20:21)
[2017-05-04] MEDS: *HR* Promethazine 25 MG/ML VIAL IVP PRN ×2 (09:41→18:04)
--- NOTE | 2017-05-04 19:11 | Internal Med Progress Note ---
Date of Encounter: 05/04/17 Time of Encounter: 19:08 (Seen earlier this afternoon) - Assessment and plan (1) Nausea & vomiting Current Visit: No Status: Acute Qualifiers: Vomiting type: unspecified Vomiting Intractability: non-intractable Qualified Code(s): R11.2 - Nausea with vomiting, unspecified (2) Abdominal pain Current Visit: No Status: Chronic Assessment and plan: EGD unrevealing but biopsies pending. Likely N/V and abdominal pain are associated with gastroparesis secondary to poorly controlled DM. She has a history of hepato- splenomegally and appears to have developed mild ascites. continue current pain mgt but try to wean off Dilaudid. Check CT-Abdomen/ Pelvis to evaluate [Update: CT showed hepatomegally and splenomegally with ascites.]. Lasix started. Continue replacement of Mag/K+. I spoke with GI and we will order a gastric emptying study. It can't be done until she has been of opioids for 48 hrs. 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 She could not tolerate Reglan so d/c'd - Time Spent With Patient Greater than 35 minutes - Subjective Interval history: DM-1 pt who was initially admitted with DKA and acute on chronic N/V and abdominal pain. She was agressively fluid resusitated and subsequently developed mild peripheral edema and abdominal distention. - Constitutional Vitals: Temp Pulse Resp BP Pulse Ox 98.1 F 85 12 125/79 98 05/04/17 15:40 05/04/17 15:40 05/04/17 15:40 05/04/17 15:40 05/04/17 15:40 General appearance: Present: mild distress, A&O X 3, answers questions appropriately - Head Head exam: Present: atraumatic, normal inspection, normocephalic - Eye Eye exam: Present: conjuntiva pink, sclera anicteric. Absent: conjunctival injection, scleral icterus - ENT ENT exam: Present: mucous membranes moist, normal exam, normal oropharynx - Neck Neck exam general surgery: Present: normal inspection, supple, trachea midline. Absent: tenderness, nuchal rigidity, thyromegaly - Respiratory Respiratory exam: Present: CTAB. Absent: respiratory distress, stridor, wheezes - Cardiovascular Cardiovascular exam: Present: RRR, +S1, +S2. Absent: JVD - GI/Abdominal GI/Abdominal exam: Present: distended, hepatomegaly, splenomegaly, tenderness, no peritoneal signs - Extremities Exam Extremities exam: Present: pedal edema - Neurological Exam Neurological exam: Present: alert, CN II-XII intact, oriented X3, no focal deficits Additional comments: Bilateral blindness - Psychiatric Psychiatric exam: Present: normal affect, normal mood Internal Medicine: Result - Labs CBC & Chem 7: 05/04/17 04:56 05/04/17 04:56 Labs: Short CBC 05/03/17 05/04/17 Range/Units 20:43 04:56 WBC 4.8 4.7 (4.3-11.1) K/mcL Hgb 8.8 L 8.7 L (11.5-15.4) g/dL Hct 26.8 L 27.0 L (35.3-44.9) % Plt Count 339 348 (140-400) K/mcL Neutrophils # 2.1 2.0 (1.6-8.9) K/mcL BMP 05/04/17 04:56 Sodium 141 Potassium 3.4 L Chloride 117 H Carbon Dioxide 19 L BUN 5 L Creatinine 0.58 L Glucose 77 Calcium 8.0 L - ABG Interpretation ABG results: ABG ABG pH 7.37 pH Units (7.32-7.45) 04/25/17 05:21 ABG pCO2 40 mmHg (35-45) 04/25/17 05:21 ABG pO2 93 mmHg (85-104) 04/25/17 05:21 ABG O2 Saturation 97 % (95-98) 04/25/17 05:21 PT/INR, D-dimer PT 11.6 Seconds (9.4-12.1) 04/23/17 11:37 Interpretation: venous blood gas - Impressions Impressions Abdomen/Pelvis CT 05/04/17 14:38 IMPRESSION: 1. The liver appears enlarged measuring 20 cm and edematous. 2. Small amount of ascites worse in the pelvis. 3. No acute gastrointestinal abnormality. 4. Small bilateral pleural effusions and lower lobe atelectatic changes. D/ / 05/04/2017 15:44:48 Fabiola Henriquez MD / bao Interpreting Provider: Fabiola Henriquez MD - VTE Documentation of Mechanical Device: Graduated compression elastic hosiery Consult Discharge Plan - Plan Referrals: Zehra Jamison CNP [Primary Care Provider] - 05/10/17 3:15 pm
[2017-05-04] MEDS: Furosemide 20 MG/2 ML VIAL IVP SCH (20:20)
[2017-05-05] MEDS: *HR* Promethazine 25 MG/ML VIAL IVP PRN ×4 (00:12→23:17)
[2017-05-05] MEDS: Insulin LISPRO 300 UNITS/3 ML VIAL SQ SCH ×4 (00:13→18:53)
[2017-05-05] MEDS: 0.9 % Sodium Chloride 1,000 ML IVC SCH (03:29)
[2017-05-05 04:59] LABS: Basophils % 0.6 %; Eosinophils # 0.1 K/mcL (0.0-0.6); Eosinophils % 1.3 %; Hematocrit 26.8 % (35.3-44.9); Hemoglobin 8.9 g/dL (11.5-15.4); Immature Granulocytes % 1.1 % (0-4); Lymphocytes % 38.2 %; Mean Corpuscular HGB Conc 33.2 g/dL (31.6-35.5); Mean Corpuscular Hemoglobin 29.6 pg (28.0-33.3); Mean Platelet Volume 9.3 fL (9.4-12.4); Monocytes # 0.5 K/mcL (0.0-1.3); Monocytes % 9.2 %; Neutrophils # 2.6 K/mcL (1.6-8.9); Platelet Count 376 K/mcL (140-400); Red Blood Count 3.01 M/mcL (3.82-4.97); Red Cell Distribution Width 12.2 % (11.5-14.5); Segmented Neutrophils % 49.6 %
[2017-05-05 05:12] LABS: BUN/Creatinine Ratio 8 (6-26); Blood Urea Nitrogen 5 mg/dL (6-20); Calcium 8.1 mg/dL (8.6-10.3); Carbon Dioxide 26 mEq/L (23-29); Chloride 112 mEq/L (98-107); Glucose 69 mg/dL (70-105); Osmolality,Calculated 290 (280-300); Potassium 3.3 mEq/L (3.5-5.1); Sodium 142 mEq/L (136-145); eGFR For African Americans > 60 (> 60); eGFR For Non-African Americans > 60 (> 60)
[2017-05-05] MEDS: *HR* Heparin 5,000 UNIT/ML VIAL SQ SCH ×2 (06:09→16:44)
[2017-05-05] MEDS: Insulin DETEMIR 100 UNIT/ML X5UNITS SQ SCH ×2 (10:39→20:46)
[2017-05-05] MEDS: Furosemide 20 MG/2 ML VIAL IVP SCH ×2 (10:40→16:43)
[2017-05-05] MEDS: *HR* OxyCODONE Immed Rel 5 MG TABLET PO PRN (10:40)
[2017-05-05] MEDS: Lisinopril 20 MG TABLET PO SCH (10:40)
[2017-05-05] MEDS ORDERED: Potassium Chloride Elixir 20 MEQ/15 ML UDC PO ONE (13:29)
[2017-05-05] MEDS: *HR* HYDROmorphone (PF) 1 MG/ML SYRINGE IVP PRN ×2 (16:44→20:46)
--- NOTE | 2017-05-05 18:57 | Internal Med Progress Note ---
Date of Encounter: 05/05/17 Time of Encounter: 18:55 (Patient seen earlier today.) - Assessment and plan (1) Nausea & vomiting Current Visit: No Status: Acute Assessment and plan: Continue antiemetics. Reglan d/c'd. Likely due to gastroparesis. Qualifiers: Vomiting type: unspecified Vomiting Intractability: non-intractable Qualified Code(s): R11.2 - Nausea with vomiting, unspecified (2) Abdominal pain Current Visit: No Status: Chronic Assessment and plan: EGD unrevealing but biopsies pending. Likely N/V and abdominal pain are associated with gastroparesis secondary to poorly controlled DM. She has a history of hepato- splenomegally and appears to have developed mild ascites. continue current pain mgt but try to wean off Dilaudid. Check CT-Abdomen/ Pelvis to evaluate [Update: CT showed hepatomegally and splenomegally with ascites.]. Lasix started. Continue replacement of Mag/K+. I spoke with GI and we will order a gastric emptying study. It can't be done until she has been of opioids for 48 hrs. 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 She could not tolerate Reglan so d/c'd - Subjective Interval history: DM-1 pt who was initially admitted with DKA and acute on chronic N/V and abdominal pain. She was agressively fluid resusitated and subsequently developed mild peripheral edema and abdominal distention. She has a history of hepatosplenomegally and her CT-Abd/Pelvis showed ascities. Lasix was given and IVFs were decreased with notable improvement in ascites. - Constitutional Vitals: Temp Pulse Resp BP Pulse Ox 98.3 F 91 15 121/77 98 05/05/17 18:38 05/05/17 18:38 05/05/17 18:38 05/05/17 18:38 05/05/17 18:38 General appearance: Present: mild distress, A&O X 3, answers questions appropriately - Head Head exam: Present: atraumatic, normocephalic - Eye Eye exam: Present: PERRL, conjuntiva pink, sclera anicteric Pupils: Present: PERRL - Neck Neck exam general surgery: Present: supple, trachea midline. Absent: lymphadenopathy - Respiratory Respiratory exam: Present: CTAB. Absent: accessory muscle use, rales, rhonchi, wheezes - Cardiovascular Cardiovascular exam: Present: RRR, +S1, +S2. Absent: diastolic murmur, gallop, rubs, systolic murmur - GI/Abdominal GI/Abdominal exam: Present: distended, hepatomegaly, normal bowel sounds, soft, splenomegaly, tenderness, no peritoneal signs. Absent: diminished bowel sounds , firm, guarding - Extremities Exam Extremities exam: Present: warm, radial pulses palpable and symmetrical. Absent : calf tenderness, cyanotic, pedal edema - Neurological Exam Neurological exam: Present: CN II-XII intact, oriented X3, no focal deficits. Absent: pronater drift, facial droop, speech deficit - Skin Skin exam: Present: dry, intact Internal Medicine: Result - Labs CBC & Chem 7: 05/05/17 04:29 05/05/17 04:29 Labs: Short CBC 05/05/17 Range/Units 04:29 WBC 5.2 (4.3-11.1) K/mcL Hgb 8.9 L (11.5-15.4) g/dL Hct 26.8 L (35.3-44.9) % Plt Count 376 (140-400) K/mcL Neutrophils # 2.6 (1.6-8.9) K/mcL BMP 05/05/17 04:29 Sodium 142 Potassium 3.3 L Chloride 112 H Carbon Dioxide 26 BUN 5 L Creatinine 0.63 Glucose 69 L Calcium 8.1 L - ABG Interpretation ABG results: ABG ABG pH 7.37 pH Units (7.32-7.45) 04/25/17 05:21 ABG pCO2 40 mmHg (35-45) 04/25/17 05:21 ABG pO2 93 mmHg (85-104) 04/25/17 05:21 ABG O2 Saturation 97 % (95-98) 04/25/17 05:21 PT/INR, D-dimer PT 11.6 Seconds (9.4-12.1) 04/23/17 11:37 - VTE Documentation of Mechanical Device: Graduated compression elastic hosiery Consult Discharge Plan - Plan Referrals: Zehra Jamison CNP [Primary Care Provider] - 05/10/17 3:15 pm
[2017-05-06] MEDS: Insulin LISPRO 300 UNITS/3 ML VIAL SQ SCH ×5 (01:07→23:48)
[2017-05-06] MEDS: *HR* Heparin 5,000 UNIT/ML VIAL SQ SCH ×2 (06:22→17:04)
[2017-05-06 07:57] LABS: BUN/Creatinine Ratio 12 (6-26); Blood Urea Nitrogen 10 mg/dL (6-20); Calcium 8.4 mg/dL (8.6-10.3); Carbon Dioxide 28 mEq/L (23-29); Chloride 108 mEq/L (98-107); Glucose 176 mg/dL (70-105); Osmolality,Calculated 295 (280-300); Potassium 3.7 mEq/L (3.5-5.1); Sodium 141 mEq/L (136-145); eGFR For African Americans > 60 (> 60); eGFR For Non-African Americans > 60 (> 60)
[2017-05-06 08:45] LABS: Basophils % 0.6 %; Eosinophils # 0.1 K/mcL (0.0-0.6); Eosinophils % 2.6 %; Hematocrit 26.4 % (35.3-44.9); Hemoglobin 8.6 g/dL (11.5-15.4); Immature Granulocytes % 1.2 % (0-4); Immature Platelets 2.5 % (1.1-6.1); Lymphocytes # 2.1 K/mcL (0.6-4.6); Lymphocytes % 41.6 %; Mean Corpuscular HGB Conc 32.6 g/dL (31.6-35.5); Mean Corpuscular Hemoglobin 29.5 pg (28.0-33.3); Mean Corpuscular Volume 90.4 fL (83.0-100.0); Mean Platelet Volume 10.4 fL (9.4-12.4); Monocytes # 0.4 K/mcL (0.0-1.3); Monocytes % 8.2 %; Neutrophils # 2.3 K/mcL (1.6-8.9); Platelet Count 357 K/mcL (140-400); Red Blood Count 2.92 M/mcL (3.82-4.97); Red Cell Distribution Width 12.6 % (11.5-14.5); Segmented Neutrophils % 45.8 %
[2017-05-06] MEDS: Insulin DETEMIR 100 UNIT/ML X5UNITS SQ SCH ×2 (08:52→23:49)
[2017-05-06] MEDS: Furosemide 20 MG/2 ML VIAL IVP SCH ×2 (08:52→17:03)
[2017-05-06] MEDS: Lisinopril 20 MG TABLET PO SCH (08:52)
--- NOTE | 2017-05-06 15:01 | Internal Med Progress Note ---
Date of Encounter: 05/06/17 Time of Encounter: 15:01 - Assessment and plan (1) Nausea & vomiting Current Visit: No Status: Acute Assessment and plan: Continue antiemetics. Reglan d/c'd. Likely due to gastroparesis and worsened by abdominal distention. Qualifiers: Vomiting type: unspecified Vomiting Intractability: non-intractable Qualified Code(s): R11.2 - Nausea with vomiting, unspecified (2) Abdominal pain Current Visit: No Status: Chronic Assessment and plan: EGD unrevealing but biopsies pending. Likely N/V and abdominal pain are associated with gastroparesis secondary to poorly controlled DM. She has a history of hepato- splenomegally and appears to have developed mild ascites. continue current pain mgt but try to wean off Dilaudid. Check CT-Abdomen/ Pelvis to evaluate [Update: CT showed hepatomegally and splenomegally with ascites.]. Lasix started. Continue replacement of Mag/K+. I spoke with GI and we will order a gastric emptying study. It can't be done until she has been of opioids for 48 hrs. 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 She was agressively fluid resusitated and subsequently developed mild peripheral edema and abdominal distention. She has a history of hepatosplenomegally and her CT-Abd/Pelvis showed ascities. Lasix was given and IVFs were decreased with notable improvement in ascites. Her abdominal distention continues to improve today, but she still c/o nausea and decreased appetite. - Constitutional Vitals: Temp Pulse Resp BP Pulse Ox 97.9 F 87 16 133/87 97 05/06/17 11:00 05/06/17 11:00 05/06/17 11:00 05/06/17 11:00 05/06/17 11:00 General appearance: Present: mild distress, A&O X 3, pleasant, answers questions appropriately - Head Head exam: Present: atraumatic, normocephalic - Eye Eye exam: Present: PERRL, conjuntiva pink, sclera anicteric Pupils: Present: PERRL - Neck Neck exam general surgery: Present: supple, trachea midline. Absent: lymphadenopathy, tenderness - Respiratory Respiratory exam: Present: CTAB. Absent: accessory muscle use, rales, rhonchi, wheezes - Cardiovascular Cardiovascular exam: Present: RRR, +S1, +S2. Absent: diastolic murmur, gallop, rubs, systolic murmur Internal Medicine: Result - Labs CBC & Chem 7: 05/06/17 07:22 05/06/17 07:22 Labs: Short CBC 05/06/17 Range/Units 07:22 WBC 5.0 (4.3-11.1) K/mcL Hgb 8.6 L (11.5-15.4) g/dL Hct 26.4 L (35.3-44.9) % Plt Count 357 (140-400) K/mcL Neutrophils # 2.3 (1.6-8.9) K/mcL BMP 05/06/17 07:22 Sodium 141 Potassium 3.7 Chloride 108 H Carbon Dioxide 28 BUN 10 Creatinine 0.81 Glucose 176 H Calcium 8.4 L - ABG Interpretation ABG results: ABG ABG pH 7.37 pH Units (7.32-7.45) 04/25/17 05:21 ABG pCO2 40 mmHg (35-45) 04/25/17 05:21 ABG pO2 93 mmHg (85-104) 04/25/17 05:21 ABG O2 Saturation 97 % (95-98) 04/25/17 05:21 PT/INR, D-dimer PT 11.6 Seconds (9.4-12.1) 04/23/17 11:37 - VTE Documentation of Mechanical Device: Graduated compression elastic hosiery Consult Discharge Plan - Plan Referrals: Zehra Jamison CNP [Primary Care Provider] - 05/10/17 3:15 pm
[2017-05-07] MEDS: Insulin LISPRO 300 UNITS/3 ML VIAL SQ SCH ×5 (04:58→20:52)
[2017-05-07] MEDS: *HR* Heparin 5,000 UNIT/ML VIAL SQ SCH ×2 (04:58→17:18)
[2017-05-07] MEDS: Insulin DETEMIR 100 UNIT/ML X5UNITS SQ SCH ×2 (09:16→20:51)
[2017-05-07] MEDS: Lisinopril 20 MG TABLET PO SCH (09:16)
[2017-05-07] MEDS: Furosemide 20 MG/2 ML VIAL IVP SCH ×2 (09:16→17:19)
[2017-05-07] MEDS: Acetaminophen 325 MG TABLET PO PRN (09:25)
--- NOTE | 2017-05-07 12:44 | Internal Med Progress Note ---
Date of Encounter: 05/07/17 Time of Encounter: 12:42 - Assessment and plan (1) Nausea & vomiting Current Visit: No Status: Acute Assessment and plan: Continue antiemetics. Reglan d/c'd. Likely due to gastroparesis and worsened by abdominal distention. Improving now. Continue Phenergan. Qualifiers: Vomiting type: unspecified Vomiting Intractability: non-intractable Qualified Code(s): R11.2 - Nausea with vomiting, unspecified (2) Abdominal pain Current Visit: No Status: Chronic Assessment and plan: EGD unrevealing but biopsies pending. Likely N/V and abdominal pain are associated with gastroparesis secondary to poorly controlled DM. She has a history of hepato- splenomegally and appears to have developed mild ascites. continue current pain mgt but try to wean off Dilaudid. Check CT-Abdomen/ Pelvis to evaluate [Update: CT showed hepatomegally and splenomegally with ascites.]. Lasix started. Continue replacement of Mag/K+. I spoke with GI and we will order a gastric emptying study. It can't be done until she has been of opioids for 48 hrs. Test to be done in the am. Qualifiers: Abdominal location: generalized Qualified Code(s): R10.84 - Generalized abdominal pain (3) 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 Assessment and plan: Gatric emptying study ordered for Monday. - Time Spent With Patient Greater than 35 minutes - Subjective Interval history: DM-1 pt who was initially admitted with DKA and acute on chronic N/V and abdominal pain. She was agressively fluid resusitated and subsequently developed mild peripheral edema and abdominal distention. She has a history of hepatosplenomegally and her CT-Abd/Pelvis showed ascities. Lasix was given and IVFs were decreased with notable improvement in ascites. Her abdominal is less distented since starting lasix. Her pain is modestly improved and the N/V have resolved. She will have the gastric emptying study in the morning. - Constitutional Vitals: Temp Pulse Resp BP Pulse Ox 98.0 F 92 16 126/82 97 05/07/17 11:07 05/07/17 11:07 05/07/17 11:07 05/07/17 11:07 05/07/17 11:07 General appearance: Present: mild distress, A&O X 3, pleasant, answers questions appropriately - Head Head exam: Present: atraumatic, normocephalic - Eye Eye exam: Present: PERRL, conjuntiva pink, sclera anicteric Pupils: Present: PERRL - Neck Neck exam general surgery: Present: supple, trachea midline. Absent: lymphadenopathy, thyromegaly - Respiratory Respiratory exam: Present: CTAB. Absent: accessory muscle use, rales, rhonchi, wheezes - Cardiovascular Cardiovascular exam: Present: RRR, +S1, +S2. Absent: diastolic murmur, gallop, rubs, systolic murmur - GI/Abdominal GI/Abdominal exam: Present: normal bowel sounds, soft, no peritoneal signs. Absent: distended, tenderness - Extremities Exam Extremities exam: Present: warm, radial pulses palpable and symmetrical. Absent : calf tenderness, cyanotic, pedal edema - Neurological Exam Neurological exam: Present: CN II-XII intact, oriented X3, no focal deficits, strengths equal and symetr throughout. Absent: abnormal gait, pronater drift, facial droop, speech deficit Internal Medicine: Result - Labs CBC & Chem 7: 05/06/17 07:22 05/06/17 07:22 - ABG Interpretation ABG results: ABG ABG pH 7.37 pH Units (7.32-7.45) 04/25/17 05:21 ABG pCO2 40 mmHg (35-45) 04/25/17 05:21 ABG pO2 93 mmHg (85-104) 04/25/17 05:21 ABG O2 Saturation 97 % (95-98) 04/25/17 05:21 PT/INR, D-dimer PT 11.6 Seconds (9.4-12.1) 04/23/17 11:37 - VTE Documentation of Mechanical Device: Graduated compression elastic hosiery Consult Discharge Plan - Plan Referrals: Zehra Jamison CNP [Primary Care Provider] - 05/10/17 3:15 pm
[2017-05-08] MEDS: Insulin LISPRO 300 UNITS/3 ML VIAL SQ SCH ×6 (00:36→21:19)
[2017-05-08] MEDS: *HR* Dextrose 50 % in Water (Syg) 50 ML SYRINGE IVP PRN (04:28)
[2017-05-08] MEDS: *HR* Heparin 5,000 UNIT/ML VIAL SQ SCH ×2 (05:35→18:08)
[2017-05-08] MEDS: Furosemide 20 MG/2 ML VIAL IVP SCH (07:23)
[2017-05-08] MEDS: Insulin DETEMIR 100 UNIT/ML X5UNITS SQ SCH ×2 (07:23→21:18)
[2017-05-08] MEDS: *HR* Promethazine 25 MG/ML VIAL IVP PRN ×2 (11:34→21:21)
[2017-05-08] MEDS: Lisinopril 20 MG TABLET PO SCH (11:35)
[2017-05-08] MEDS: *HR* HYDROmorphone (PF) 1 MG/ML SYRINGE IVP PRN ×3 (11:35→21:16)
--- NOTE | 2017-05-08 12:49 | Internal Med Progress Note ---
Date of Encounter: 05/08/17 Time of Encounter: 12:45 - Assessment and plan (1) Nausea & vomiting Current Visit: No Status: Acute Qualifiers: Vomiting type: unspecified Vomiting Intractability: non-intractable Qualified Code(s): R11.2 - Nausea with vomiting, unspecified (2) Abdominal pain Current Visit: No Status: Chronic Qualifiers: Abdominal location: generalized Qualified Code(s): R10.84 - Generalized abdominal pain (3) 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 - Subjective Interval history: DM-1 pt who was initially admitted with DKA and acute on chronic N/V and abdominal pain. She was agressively fluid resusitated and subsequently developed mild peripheral edema and abdominal distention. She has a history of hepatosplenomegally and her CT-Abd/Pelvis showed ascities. Lasix was given and IVFs were decreased with notable improvement in ascites. Her abdominal is less distented since starting lasix. Her pain is modestly improved and the N/V have resolved. She will have the gastric emptying study in the morning. Physical exam: Gen: A&O x2 in no acute distress but pleasantly confused at baseline HEENT: Head is atraumatic and normocephalic. PERRLA, EOM-full No scleral icterus. No oral or perioral lesions. Neck: No JVD, Thyroid is ML without thyromegally or nodules. No cervical LAD CV: Tachy rate with regular rhythm Lungs: CTAB No nwheezing, rales or rhonchi Abdomen: Soft , nondistended, Nontender and NL BS all 4 quads w/o RBT or gaurding. No peritoneal signs. Extremities: trace to 1+ pedal edema bilaterally Skin: warm and dry without rashes Neruo: Difficult following commands, but no obvious focal deficits noted. CN 2- 12 grossly intact with nl motor exam. Handgrip equal bilaterally. Unable to evaluate her ability to walk or stand. Sensory exam grossly normal. Pertientnt lab findings: Noted below A/P: DKA: Resolved DM-I: Difficult to manage due to patient inconsistant eating habits. Continue basal insulin. Discontinue scheduled Humalog with meals and continue Humalog by sliding scale with meals. She is a very brittle diabetic and even small adjustments cause large swings in BG. She and her want to be able to refuse SSI to avoid hypoglycemia. Her eating habits range from eating a full meal to only bites the next day or next meal. Nausea and abdominal pain. The EGD was negative and Bx for H.pylori neg. The GE study showed delayed emptying consistent with gastroparesis. Further input form GI appreciated. Hepatosplenomegaly with reported DURAN and with worsening ascites: Following her episode DKA the ascites was exacerbated by IVF administration. Lasix was held initially. Spironolactone started in addition to increased lasix dose today. Diet changed to Diabetic low sodium diet. Metoprolol changed o Propranolol. Decrease KCl to avoid Hyperkalemia after starteing spironolactone. She is also on Lisinopril so we will cautiously watch her K= level. > 45 mins spent - Constitutional Vitals: Temp Pulse Resp BP Pulse Ox 98.0 F 96 16 120/80 97 05/08/17 12:02 05/08/17 12:02 05/08/17 12:02 05/08/17 12:02 05/08/17 12:02 General appearance: Present: mild distress, A&O X 3, pleasant, answers questions appropriately Internal Medicine: Result - Labs CBC & Chem 7: 05/06/17 07:22 05/06/17 07:22 - ABG Interpretation ABG results: ABG ABG pH 7.37 pH Units (7.32-7.45) 04/25/17 05:21 ABG pCO2 40 mmHg (35-45) 04/25/17 05:21 ABG pO2 93 mmHg (85-104) 04/25/17 05:21 ABG O2 Saturation 97 % (95-98) 04/25/17 05:21 PT/INR, D-dimer PT 11.6 Seconds (9.4-12.1) 04/23/17 11:37 - Impressions Impressions Gastric Emptying Nuclear Medicine 05/08/17 07:00 IMPRESSION: Delayed gastric emptying. D/ / Rayshawn Azul MD / Rayshawn Azul MD Interpreting Provider: Rayshawn Azul MD - VTE Documentation of Mechanical Device: Graduated compression elastic hosiery Consult Discharge Plan - Plan Referrals: Zehra Jamison CNP [Primary Care Provider] - 05/10/17 3:15 pm
[2017-05-09] MEDS: *HR* HYDROmorphone (PF) 1 MG/ML SYRINGE IVP PRN ×5 (01:02→21:37)
[2017-05-09] MEDS: *HR* Promethazine 25 MG/ML VIAL IVP PRN ×3 (06:24→19:44)
[2017-05-09] MEDS: *HR* Heparin 5,000 UNIT/ML VIAL SQ SCH ×2 (06:24→17:06)
[2017-05-09] MEDS: Insulin LISPRO 300 UNITS/3 ML VIAL SQ SCH ×4 (08:08→21:32)
[2017-05-09 08:32] LABS: Basophils # 0.1 K/mcL (0.0-0.2); Basophils % 1.2 %; Eosinophils # 0.2 K/mcL (0.0-0.6); Eosinophils % 2.3 %; Hematocrit 34.9 % (35.3-44.9); Immature Granulocytes % 1.6 % (0-4); Lymphocytes # 3.4 K/mcL (0.6-4.6); Lymphocytes % 36.4 %; Mean Corpuscular HGB Conc 32.1 g/dL (31.6-35.5); Mean Corpuscular Volume 90.4 fL (83.0-100.0); Mean Platelet Volume 9.9 fL (9.4-12.4); Monocytes # 0.6 K/mcL (0.0-1.3); Monocytes % 5.9 %; Neutrophils # 4.9 K/mcL (1.6-8.9); Platelet Count 449 K/mcL (140-400); Red Blood Count 3.86 M/mcL (3.82-4.97); Segmented Neutrophils % 52.6 %
[2017-05-09 08:37] LABS: Hemoglobin 11.2 g/dL (11.5-15.4)
[2017-05-09] MEDS: Lisinopril 20 MG TABLET PO SCH (08:51)
[2017-05-09] MEDS: Furosemide 20 MG TABLET PO SCH (08:51)
[2017-05-09] MEDS: Potassium Chloride Elixir 20 MEQ/15 ML UDC PO SCH (08:51)
[2017-05-09] MEDS: Insulin DETEMIR 100 UNIT/ML X5UNITS SQ SCH ×2 (08:51→21:33)
[2017-05-09 09:10] LABS: BUN/Creatinine Ratio 34 (6-26); Blood Urea Nitrogen 39 mg/dL (6-20); Carbon Dioxide 25 mEq/L (23-29); Chloride 104 mEq/L (98-107); Glucose 94 mg/dL (70-105); Osmolality,Calculated 299 (280-300); Potassium 4.6 mEq/L (3.5-5.1); Sodium 140 mEq/L (136-145); eGFR For African Americans > 60 (> 60); eGFR For Non-African Americans 55 (> 60)
[2017-05-09] MEDS: Metoclopramide 10 MG/10 ML UD.LIQ PO SCH ×2 (17:02→21:32)
--- NOTE | 2017-05-09 18:24 | Internal Med Progress Note ---
Date of Encounter: 05/09/17 Time of Encounter: 11:00 - Assessment and plan (1) Abdominal pain Current Visit: No Status: Chronic Assessment and plan: EGD unrevealing but biopsies pending. Likely N/V and abdominal pain are associated with gastroparesis secondary to poorly controlled DM. She has a history of hepato- splenomegally and appears to have developed mild ascites. Check CT-Abdomen/Pelvis to evaluate [Update: CT showed hepatomegally and splenomegally with ascites.]. Lasix started; GI will order a gastric emptying study. 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 Assessment and plan: Gatric emptying study ordered (5) DVT prophylaxis Current Visit: No Status: Acute Assessment and plan: Heparin (6) DVT prophylaxis Current Visit: Yes Status: Acute - Subjective Interval history: Patient with continue abdominal discomfort suspected to be secondary to gastroparesis - Constitutional Vitals: Temp Pulse Resp BP Pulse Ox 97.9 F 67 16 93/59 100 05/09/17 15:29 05/09/17 15:29 05/09/17 15:29 05/09/17 15:29 05/09/17 15:29 General appearance: Present: mild distress, A&O X 3, pleasant, answers questions appropriately - Cardiovascular Cardiovascular exam: Present: RRR, +S1, +S2. Absent: diastolic murmur, gallop, rubs, systolic murmur - GI/Abdominal GI/Abdominal exam: Present: distended, normal bowel sounds, soft, tenderness ( Generalized tenderness), no peritoneal signs Internal Medicine: Result - Labs CBC & Chem 7: 05/09/17 08:07 05/09/17 08:07 Labs: Short CBC 05/09/17 Range/Units 08:07 WBC 9.3 D (4.3-11.1) K/mcL Hgb 11.2 L D (11.5-15.4) g/dL Hct 34.9 L (35.3-44.9) % Plt Count 449 H (140-400) K/mcL Neutrophils # 4.9 (1.6-8.9) K/mcL BMP 05/09/17 08:07 Sodium 140 Potassium 4.6 Chloride 104 Carbon Dioxide 25 BUN 39 H Creatinine 1.14 Glucose 94 Calcium 9.0 - ABG Interpretation ABG results: ABG ABG pH 7.37 pH Units (7.32-7.45) 04/25/17 05:21 ABG pCO2 40 mmHg (35-45) 04/25/17 05:21 ABG pO2 93 mmHg (85-104) 04/25/17 05:21 ABG O2 Saturation 97 % (95-98) 04/25/17 05:21 PT/INR, D-dimer PT 11.6 Seconds (9.4-12.1) 04/23/17 11:37 - VTE Documentation of Mechanical Device: Intermittent pneumatic compression device Consult Discharge Plan - Plan Referrals: Zehra Jamison CNP [Primary Care Provider] - 05/10/17 3:15 pm
[2017-05-10] MEDS: *HR* HYDROmorphone (PF) 1 MG/ML SYRINGE IVP PRN ×4 (01:37→22:34)
[2017-05-10] MEDS: *HR* Promethazine 25 MG/ML VIAL IVP PRN ×4 (02:52→22:35)
[2017-05-10] MEDS: *HR* Heparin 5,000 UNIT/ML VIAL SQ SCH ×2 (05:00→20:42)
[2017-05-10] MEDS: Metoclopramide 10 MG/10 ML UD.LIQ PO SCH ×4 (07:43→20:42)
[2017-05-10] MEDS: Lisinopril 20 MG TABLET PO SCH (07:44)
[2017-05-10] MEDS: Potassium Chloride Elixir 20 MEQ/15 ML UDC PO SCH (07:44)
[2017-05-10] MEDS: Furosemide 20 MG TABLET PO SCH (07:44)
[2017-05-10] MEDS: Insulin LISPRO 300 UNITS/3 ML VIAL SQ SCH ×4 (07:46→20:42)
[2017-05-10] MEDS: Insulin DETEMIR 100 UNIT/ML X5UNITS SQ SCH ×2 (09:17→20:43)
[2017-05-10 10:02] LABS: Basophils # 0.1 K/mcL (0.0-0.2); Basophils % 1.1 %; Eosinophils # 0.2 K/mcL (0.0-0.6); Eosinophils % 2.5 %; Hemoglobin 10.4 g/dL (11.5-15.4); Immature Granulocytes % 1.4 % (0-4); Lymphocytes # 2.6 K/mcL (0.6-4.6); Lymphocytes % 40.6 %; Mean Corpuscular HGB Conc 31.5 g/dL (31.6-35.5); Mean Corpuscular Volume 91.9 fL (83.0-100.0); Mean Platelet Volume 9.9 fL (9.4-12.4); Monocytes # 0.5 K/mcL (0.0-1.3); Monocytes % 7.7 %; Platelet Count 351 K/mcL (140-400); Red Blood Count 3.59 M/mcL (3.82-4.97); Red Cell Distribution Width 12.8 % (11.5-14.5); Segmented Neutrophils % 46.7 %
[2017-05-10 10:20] LABS: BUN/Creatinine Ratio 40 (6-26); Blood Urea Nitrogen 38 mg/dL (6-20); Calcium 9.1 mg/dL (8.6-10.3); Carbon Dioxide 25 mEq/L (23-29); Chloride 107 mEq/L (98-107); Glucose 122 mg/dL (70-105); Osmolality,Calculated 294 (280-300); Potassium 4.9 mEq/L (3.5-5.1); Sodium 137 mEq/L (136-145); eGFR For African Americans > 60 (> 60); eGFR For Non-African Americans > 60 (> 60)
--- NOTE | 2017-05-10 17:11 | Internal Med Progress Note ---
Date of Encounter: 05/10/17 Time of Encounter: 11:00 - Assessment and plan (1) Abdominal pain Current Visit: No Status: Chronic Assessment and plan: Patient with no improvement in symptoms EGD unrevealing but biopsies pending. CT of the abdomen/pelvis showed hepatomegaly measuring 20 cm and edematous; also noted was small amount of ascites worse in the pelvis. Abdominal ultrasound showed upper limits of normal size of spleen measuring up to 12 cm. GI consulted with recommendations for gastric empty study which showed delayed gastric emptying. Reglan started GI following an appreciate any additional recommendations Qualifiers: Abdominal location: generalized Qualified Code(s): R10.84 - Generalized abdominal pain (2) Ascites of liver Current Visit: Yes Status: Acute Assessment and plan: -CT of the abdomen/pelvis showed hepatomegaly measuring 20 cm and edematous; also noted was small amount of ascites worse in the pelvis. -She has been started on spironolactone and Lasix -GI following and appreciate any recommendations (3) DKA (diabetic ketoacidoses) Current Visit: No Status: Resolved Assessment and plan: Resolved; continue current management for type 1 diabetes Qualifiers: Diabetes mellitus type: type 1 Diabetes mellitus complication detail: without coma Qualified Code(s): E10.10 - Type 1 diabetes mellitus with ketoacidosis without coma (4) Sepsis Current Visit: No Status: Resolved Assessment and plan: -Resolved; source unknown Qualifiers: Sepsis type: sepsis due to unspecified organism Qualified Code(s): A41.9 - Sepsis, unspecified organism (5) 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 Assessment and plan: GI consulted with recommendations for gastric empty study which showed delayed gastric emptying. Reglan has been started (6) Hypertension Current Visit: No Status: Chronic Assessment and plan: -Patient with low blood pressure so lisinopril/hydrochlorothiazide has been held. -Continue to monitor Qualifiers: Hypertension type: essential hypertension Qualified Code(s): I10 - Essential (primary) hypertension (7) DVT prophylaxis Current Visit: No Status: Acute Assessment and plan: Heparin - Subjective Interval history: Patient with continued abdominal discomfort suspected to be secondary to gastroparesis As a result patient with decreased by mouth intake GI with recommendations for gastric emptying study which showed Gastroparesis DKA/sepsis has resolved - Constitutional Vitals: Temp Pulse Resp BP Pulse Ox 98.6 F 101 16 96/59 98 01/17/18 15:18 05/10/17 15:18 05/10/17 15:18 05/10/17 15:18 05/10/17 15:18 General appearance: Present: mild distress, A&O X 3, pleasant, answers questions appropriately - Respiratory Respiratory exam: Present: CTAB. Absent: accessory muscle use, rales, rhonchi, wheezes - Cardiovascular Cardiovascular exam: Present: RRR, +S1, +S2. Absent: diastolic murmur, gallop, rubs, systolic murmur - GI/Abdominal GI/Abdominal exam: Present: tenderness (Generalized abdominal tenderness) Internal Medicine: Result - Labs CBC & Chem 7: 05/10/17 09:33 05/10/17 09:33 Labs: Short CBC 05/10/17 Range/Units 09:33 WBC 6.5 (4.3-11.1) K/mcL Hgb 10.4 L (11.5-15.4) g/dL Hct 33.0 L (35.3-44.9) % Plt Count 351 (140-400) K/mcL Neutrophils # 3.0 (1.6-8.9) K/mcL BMP 05/10/17 09:33 Sodium 137 Potassium 4.9 Chloride 107 Carbon Dioxide 25 BUN 38 H Creatinine 0.96 Glucose 122 H Calcium 9.1 - ABG Interpretation ABG results: ABG ABG pH 7.37 pH Units (7.32-7.45) 04/25/17 05:21 ABG pCO2 40 mmHg (35-45) 04/25/17 05:21 ABG pO2 93 mmHg (85-104) 04/25/17 05:21 ABG O2 Saturation 97 % (95-98) 04/25/17 05:21 PT/INR, D-dimer PT 11.6 Seconds (9.4-12.1) 04/23/17 11:37 - VTE Documentation of Mechanical Device: Intermittent pneumatic compression device Consult Discharge Plan - Plan Referrals: Zehra Jamison CNP [Primary Care Provider] - 05/18/17 3:45 pm
[2017-05-11] MEDS: *HR* Promethazine 25 MG/ML VIAL IVP PRN ×3 (04:30→18:41)
[2017-05-11] MEDS: *HR* HYDROmorphone (PF) 1 MG/ML SYRINGE IVP PRN (04:30)
[2017-05-11] MEDS: *HR* Heparin 5,000 UNIT/ML VIAL SQ SCH ×2 (05:57→16:54)
[2017-05-11 09:01] LABS: Basophils # 0.1 K/mcL (0.0-0.2); Basophils % 1.2 %; Eosinophils # 0.2 K/mcL (0.0-0.6); Eosinophils % 2.2 %; Hematocrit 33.1 % (35.3-44.9); Hemoglobin 10.5 g/dL (11.5-15.4); Immature Granulocytes % 1.2 % (0-4); Lymphocytes # 2.6 K/mcL (0.6-4.6); Lymphocytes % 39.3 %; Mean Corpuscular HGB Conc 31.7 g/dL (31.6-35.5); Mean Corpuscular Hemoglobin 29.2 pg (28.0-33.3); Mean Corpuscular Volume 92.2 fL (83.0-100.0); Mean Platelet Volume 10.3 fL (9.4-12.4); Monocytes # 0.5 K/mcL (0.0-1.3); Monocytes % 7.2 %; Neutrophils # 3.3 K/mcL (1.6-8.9); Platelet Count 313 K/mcL (140-400); Red Blood Count 3.59 M/mcL (3.82-4.97); Red Cell Distribution Width 12.5 % (11.5-14.5); Segmented Neutrophils % 48.9 %
[2017-05-11] MEDS: Furosemide 20 MG TABLET PO SCH (09:08)
[2017-05-11] MEDS: Potassium Chloride Elixir 20 MEQ/15 ML UDC PO SCH (09:08)
[2017-05-11] MEDS: Metoclopramide 10 MG/10 ML UD.LIQ PO SCH ×4 (09:09→20:22)
[2017-05-11] MEDS: Insulin LISPRO 300 UNITS/3 ML VIAL SQ SCH ×4 (09:11→21:18)
[2017-05-11 09:16] LABS: BUN/Creatinine Ratio 37 (6-26); Blood Urea Nitrogen 40 mg/dL (6-20); Calcium 8.9 mg/dL (8.6-10.3); Carbon Dioxide 23 mEq/L (23-29); Chloride 106 mEq/L (98-107); Glucose 266 mg/dL (70-105); Osmolality,Calculated 295 (280-300); Potassium 5.8 mEq/L (3.5-5.1); Sodium 133 mEq/L (136-145); eGFR For African Americans > 60 (> 60); eGFR For Non-African Americans 59 (> 60)
[2017-05-11] MEDS: Insulin DETEMIR 100 UNIT/ML X5UNITS SQ SCH ×2 (11:41→21:18)
--- NOTE | 2017-05-11 11:51 | Event Note ---
Date of Encounter: 05/11/17 Time of Encounter: 09:30 Pt is awake in bed. She reports continued abdominal pain worse on the right side. She has continued nausea, denies vomiting. States she was able to eat cereal this morning but felt full after a few bites. She has abdominal bloating that comes and goes. She has occasional diarrhea but denies any bloody or tarry stools. She continues to complain of some dysphagia. She may need repeat EGD with botox injections.
[2017-05-11] MEDS ORDERED: Erythromycin Lactobionate 250 MG in 0.9 % Sodium Chloride 100 ML IVPB SCH (12:00)
--- NOTE | 2017-05-11 18:00 | Internal Med Progress Note ---
Date of Encounter: 05/11/17 Time of Encounter: 11:00 - Assessment and plan (1) Abdominal pain Current Visit: No Status: Chronic Assessment and plan: Patient with no improvement in symptoms EGD unrevealing but biopsies pending. CT of the abdomen/pelvis showed hepatomegaly measuring 20 cm and edematous; also noted was small amount of ascites worse in the pelvis. Abdominal ultrasound showed upper limits of normal size of spleen measuring up to 12 cm. GI consulted with recommendations for gastric empty study which showed delayed gastric emptying. Reglan started GI with recommendations for IV erythromycin but not in stock therefore recommendations for repeat EGD with Botox Qualifiers: Abdominal location: generalized Qualified Code(s): R10.84 - Generalized abdominal pain (2) Ascites of liver Current Visit: Yes Status: Acute Assessment and plan: -CT of the abdomen/pelvis showed hepatomegaly measuring 20 cm and edematous; also noted was small amount of ascites worse in the pelvis. -She has been started on spironolactone and Lasix -GI following and appreciate any recommendations (3) DKA (diabetic ketoacidoses) Current Visit: No Status: Resolved Assessment and plan: Resolved; continue current management for type 1 diabetes Qualifiers: Diabetes mellitus type: type 1 Diabetes mellitus complication detail: without coma Qualified Code(s): E10.10 - Type 1 diabetes mellitus with ketoacidosis without coma (4) Sepsis Current Visit: No Status: Resolved Assessment and plan: -Resolved; source unknown Qualifiers: Sepsis type: sepsis due to unspecified organism Qualified Code(s): A41.9 - Sepsis, unspecified organism (5) 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 Assessment and plan: GI consulted with recommendations for gastric empty study which showed delayed gastric emptying. Reglan has been started (6) Hypertension Current Visit: No Status: Chronic Assessment and plan: -Patient with low blood pressure so lisinopril/hydrochlorothiazide has been held. -Continue to monitor Qualifiers: Hypertension type: essential hypertension Qualified Code(s): I10 - Essential (primary) hypertension (7) DVT prophylaxis Current Visit: No Status: Acute Assessment and plan: Heparin - Subjective Interval history: Patient with continued abdominal discomfort suspected to be secondary to gastroparesis As a result patient with decreased by mouth intake GI with recommendations for IV erythromycin but not in stock therefore recommendations for repeat EGD with Botox DKA/sepsis has resolved - Constitutional Vitals: Temp Pulse Resp BP Pulse Ox 98.8 F 90 16 111/71 97 05/11/17 15:24 05/11/17 15:24 05/11/17 15:24 05/11/17 15:24 05/11/17 15:24 General appearance: Present: mild distress, A&O X 3, pleasant, answers questions appropriately - Respiratory Respiratory exam: Present: CTAB. Absent: accessory muscle use, rales, rhonchi, wheezes - Cardiovascular Cardiovascular exam: Present: RRR, +S1, +S2. Absent: diastolic murmur, gallop, rubs, systolic murmur - GI/Abdominal GI/Abdominal exam: Present: normal bowel sounds, soft, no peritoneal signs. Absent: distended, tenderness Internal Medicine: Result - Labs CBC & Chem 7: 05/11/17 08:13 05/11/17 08:13 Labs: Short CBC 05/11/17 Range/Units 08:13 WBC 6.7 (4.3-11.1) K/mcL Hgb 10.5 L (11.5-15.4) g/dL Hct 33.1 L (35.3-44.9) % Plt Count 313 (140-400) K/mcL Neutrophils # 3.3 (1.6-8.9) K/mcL BMP 05/11/17 08:13 Sodium 133 L Potassium 5.8 H Chloride 106 Carbon Dioxide 23 BUN 40 H Creatinine 1.08 Glucose 266 H Calcium 8.9 - ABG Interpretation ABG results: ABG ABG pH 7.37 pH Units (7.32-7.45) 04/25/17 05:21 ABG pCO2 40 mmHg (35-45) 04/25/17 05:21 ABG pO2 93 mmHg (85-104) 04/25/17 05:21 ABG O2 Saturation 97 % (95-98) 04/25/17 05:21 PT/INR, D-dimer PT 11.6 Seconds (9.4-12.1) 04/23/17 11:37 - VTE Documentation of Mechanical Device: Intermittent pneumatic compression device Consult Discharge Plan - Plan Referrals: Zehra Jamison, DAVID [Primary Care Provider] - 05/18/17 3:45 pm
[2017-05-11] MEDS: Acetaminophen 325 MG TABLET PO PRN (20:22)
[2017-05-11] MEDS ORDERED: Insulin Human Regular 10 UNIT in 0.9 % Sodium Chloride 10 ML IV ONE (22:56)
[2017-05-12 00:25] LABS: BUN/Creatinine Ratio 35 (6-26); Blood Urea Nitrogen 39 mg/dL (6-20); Carbon Dioxide 22 mEq/L (23-29); Chloride 107 mEq/L (98-107); Glucose 300 mg/dL (70-105); Osmolality,Calculated 299 (280-300); Potassium 4.6 mEq/L (3.5-5.1); Sodium 134 mEq/L (136-145); eGFR For African Americans > 60 (> 60); eGFR For Non-African Americans 57 (> 60)
[2017-05-12] MEDS: *HR* Promethazine 25 MG/ML VIAL IVP PRN ×4 (01:13→20:00)
[2017-05-12] MEDS: *HR* Heparin 5,000 UNIT/ML VIAL SQ SCH ×2 (05:42→17:18)
[2017-05-12] MEDS: Metoclopramide 10 MG/10 ML UD.LIQ PO SCH ×4 (07:58→20:00)
[2017-05-12] MEDS: Insulin LISPRO 300 UNITS/3 ML VIAL SQ SCH ×4 (07:58→21:35)
[2017-05-12] MEDS: Furosemide 20 MG TABLET PO SCH (07:58)
[2017-05-12] MEDS: Insulin DETEMIR 100 UNIT/ML X5UNITS SQ SCH ×2 (07:59→21:34)
--- NOTE | 2017-05-12 18:34 | Internal Med Progress Note ---
Date of Encounter: 05/12/17 Time of Encounter: 11:00 - Assessment and plan (1) Abdominal pain Current Visit: No Status: Chronic Assessment and plan: Patient with no improvement in symptoms EGD unrevealing but biopsies pending. CT of the abdomen/pelvis showed hepatomegaly measuring 20 cm and edematous; also noted was small amount of ascites worse in the pelvis. Abdominal ultrasound showed upper limits of normal size of spleen measuring up to 12 cm. GI consulted with recommendations for gastric empty study which showed delayed gastric emptying. Reglan started GI with recommendations for IV erythromycin but not in stock therefore recommendations for repeat EGD with Botox Qualifiers: Abdominal location: generalized Qualified Code(s): R10.84 - Generalized abdominal pain (2) Ascites of liver Current Visit: Yes Status: Acute Assessment and plan: -CT of the abdomen/pelvis showed hepatomegaly measuring 20 cm and edematous; also noted was small amount of ascites worse in the pelvis. -She has been started on spironolactone and Lasix -GI following and appreciate any recommendations (3) DKA (diabetic ketoacidoses) Current Visit: No Status: Resolved Assessment and plan: Resolved; continue current management for type 1 diabetes Qualifiers: Diabetes mellitus type: type 1 Diabetes mellitus complication detail: without coma Qualified Code(s): E10.10 - Type 1 diabetes mellitus with ketoacidosis without coma (4) Sepsis Current Visit: No Status: Resolved Assessment and plan: -Resolved; source unknown Qualifiers: Sepsis type: sepsis due to unspecified organism Qualified Code(s): A41.9 - Sepsis, unspecified organism (5) 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 Assessment and plan: GI consulted with recommendations for gastric empty study which showed delayed gastric emptying. Reglan has been started (6) Hypertension Current Visit: No Status: Chronic Assessment and plan: -Patient with low blood pressure so lisinopril/hydrochlorothiazide has been held. -Continue to monitor Qualifiers: Hypertension type: essential hypertension Qualified Code(s): I10 - Essential (primary) hypertension (7) DVT prophylaxis Current Visit: No Status: Acute Assessment and plan: Heparin - Subjective Interval history: Patient with continued abdominal discomfort suspected to be secondary to gastroparesis As a result patient with decreased by mouth intake GI with recommendations for IV erythromycin but not in stock therefore recommendations for repeat EGD with Botox DKA/sepsis has resolved - Constitutional Vitals: Temp Pulse Resp BP Pulse Ox 98.2 F 93 16 106/68 98 05/12/17 16:26 05/12/17 16:26 05/12/17 16:26 05/12/17 16:26 05/12/17 16:26 General appearance: Present: mild distress, A&O X 3, pleasant, answers questions appropriately - Cardiovascular Cardiovascular exam: Present: RRR, +S1, +S2. Absent: diastolic murmur, gallop, rubs, systolic murmur - GI/Abdominal GI/Abdominal exam: Present: tenderness (Generalized abdominal tenderness) Internal Medicine: Result - Labs CBC & Chem 7: 05/11/17 08:13 05/12/17 00:00 Labs: BMP 05/12/17 00:00 Sodium 134 L Potassium 4.6 Chloride 107 Carbon Dioxide 22 L BUN 39 H Creatinine 1.11 Glucose 300 H Calcium 9.0 - ABG Interpretation ABG results: ABG ABG pH 7.37 pH Units (7.32-7.45) 04/25/17 05:21 ABG pCO2 40 mmHg (35-45) 04/25/17 05:21 ABG pO2 93 mmHg (85-104) 04/25/17 05:21 ABG O2 Saturation 97 % (95-98) 04/25/17 05:21 PT/INR, D-dimer PT 11.6 Seconds (9.4-12.1) 04/23/17 11:37 - VTE Documentation of Mechanical Device: Intermittent pneumatic compression device Consult Discharge Plan - Plan Referrals: Zehra Jamison CNP [Primary Care Provider] - 05/18/17 3:45 pm
[2017-05-13] MEDS ORDERED: *HR* LORazepam 1 MG TABLET PO ONE (00:56)
[2017-05-13] MEDS ORDERED: Insulin LISPRO 300 UNITS/3 ML VIAL SQ ONE (01:00)
[2017-05-13] MEDS: *HR* Promethazine 25 MG/ML VIAL IVP PRN ×4 (02:00→20:46)
[2017-05-13] MEDS: *HR* Heparin 5,000 UNIT/ML VIAL SQ SCH ×2 (05:27→17:02)
[2017-05-13] MEDS: Insulin LISPRO 300 UNITS/3 ML VIAL SQ SCH ×4 (08:25→21:17)
[2017-05-13] MEDS: Insulin DETEMIR 100 UNIT/ML X5UNITS SQ SCH ×2 (08:32→20:41)
[2017-05-13] MEDS: Metoclopramide 10 MG/10 ML UD.LIQ PO SCH ×4 (08:32→20:41)
[2017-05-13] MEDS: Furosemide 20 MG TABLET PO SCH (08:32)
[2017-05-13 09:10] LABS: Basophils # 0.1 K/mcL (0.0-0.2); Basophils % 2.3 %; Eosinophils # 0.2 K/mcL (0.0-0.6); Eosinophils % 3.4 %; Hematocrit 31.9 % (35.3-44.9); Hemoglobin 10.7 g/dL (11.5-15.4); Immature Granulocytes % 0.7 % (0-4); Lymphocytes # 2.6 K/mcL (0.6-4.6); Lymphocytes % 42.2 %; Mean Corpuscular HGB Conc 33.5 g/dL (31.6-35.5); Mean Corpuscular Hemoglobin 29.6 pg (28.0-33.3); Mean Corpuscular Volume 88.1 fL (83.0-100.0); Mean Platelet Volume 10.3 fL (9.4-12.4); Monocytes # 0.6 K/mcL (0.0-1.3); Monocytes % 9.2 %; Neutrophils # 2.6 K/mcL (1.6-8.9); Platelet Count 360 K/mcL (140-400); Red Blood Count 3.62 M/mcL (3.82-4.97); Red Cell Distribution Width 12.4 % (11.5-14.5); Segmented Neutrophils % 42.2 %
[2017-05-13 09:22] LABS: BUN/Creatinine Ratio 34 (6-26); Blood Urea Nitrogen 33 mg/dL (6-20); Calcium 9.2 mg/dL (8.6-10.3); Carbon Dioxide 21 mEq/L (23-29); Chloride 109 mEq/L (98-107); Glucose 144 mg/dL (70-105); Osmolality,Calculated 294 (280-300); Sodium 137 mEq/L (136-145); eGFR For African Americans > 60 (> 60); eGFR For Non-African Americans > 60 (> 60)
[2017-05-13] MEDS ORDERED: Ketorolac 30 MG/ML VIAL IVP ONE (17:13)
--- NOTE | 2017-05-13 17:25 | Discharge Summary ---
Date of Encounter: 05/13/17 Time of Encounter: 11:00 - Discharge Diagnosis (1) Abdominal pain Priority: Primary Status: Chronic Qualifiers: Abdominal location: generalized Qualified Code(s): R10.84 - Generalized abdominal pain (2) Ascites of liver Priority: Secondary Status: Acute (3) DKA (diabetic ketoacidoses) Priority: Primary Status: Resolved Qualifiers: Diabetes mellitus type: type 1 Diabetes mellitus complication detail: without coma Qualified Code(s): E10.10 - Type 1 diabetes mellitus with ketoacidosis without coma (4) Sepsis Priority: Secondary Status: Resolved Qualifiers: Sepsis type: sepsis due to unspecified organism Qualified Code(s): A41.9 - Sepsis, unspecified organism (5) Gastroparesis diabeticorum Priority: Primary Status: Chronic (6) Hypertension Priority: Secondary Status: Chronic Qualifiers: Hypertension type: essential hypertension Qualified Code(s): I10 - Essential (primary) hypertension - Discharge Medications Home Medications: LORazepam [Ativan] 1 mg PO BID #6 12/18/16 [Rx] Metoprolol [Lopressor] 25 mg PO BID #60 tablet 12/18/16 [Rx] Insulin Glargine,Hum.rec.anlog [Lantus Solostar] 20 unit SQ BID 03/09/17 [ History] Sodium Bicarbonate 650 mg PO DAILY 03/09/17 [History] Cefdinir [Omnicef] 300 mg PO BID #6 capsule 03/12/17 [Rx] Insulin ASPART [NovoLOG] 10 unit SQ TIDWM PRN #5 vial 03/12/17 [Rx] OxyCODONE Immed Rel [Roxicodone 5 MG] 5 mg PO Q6HR PRN #20 tablet 03/12/17 [Rx] Phenazopyridine [Pyridium] 100 mg PO TID PRN #20 tablet 03/12/17 [Rx] Insulin ASPART [Novolog Flexpen] 2 - 10 unit SQ TIDWM 04/23/17 [History] Insulin Glargine,Hum.rec.anlog [Lantus Solostar] 10 - 20 unit SQ HS 04/23/17 [ History] Lisinopril/Hydrochlorothiazide [Zestoretic 20-12.5 mg Tablet] 1 tab PO DAILY [History] Metoprolol [Lopressor] 25 mg PO BID 04/23/17 [History] Sodium Bicarbonate 650 mg PO DAILY 04/23/17 [History] Allergies/Adverse Reactions: 3 Allergy/AdvReac Type Severity Reaction Status Date / Time hydrocodone Allergy Hives Verified 12/13/16 12:28 Procedures/tests Complete & Pending: Pending Tests Category Date Time Status Basic Metabolic Panel Q2H Lab 04/23/17 14:48 Cancelled Basic Metabolic Panel Q2H Lab 04/23/17 16:48 Cancelled Basic Metabolic Panel Q2H Lab 04/23/17 18:48 Cancelled Basic Metabolic Panel Q2H Lab 04/23/17 20:48 Cancelled Basic Metabolic Panel Q2H Lab 04/23/17 22:48 Cancelled Date of admission: 04/23/17 14:10 Primary care physician: Zehra Jamison Consults: 05/01/17 10:51 Consult to Gastroenterology [CONS] Routine Consulting Provider: [facility] Reason for Consult: Intractable nausea, poor po intake Call Completed: Yes - Patient Status Disposition: Transfer Critical Access Hosp Condition: Critical - Discharge Instructions Follow Up With: Zehra Jamison CNP [Primary Care Provider] - 05/18/17 3:45 pm Hospital course: Patient is a 31-year-old female with past medical history significant for type 1 diabetes with multiple episodes of DKA, hypertension, hepatosplenomegaly and blindness who presented to the ER on 04/23/17 due to unresponsiveness per mother. Per chart review patient well known to [facility], patient's house well known for recreational drug use. In the ER, patient was found to be tachycardic, tachypnic, hypothermic, with a BS in the 500s. Patient was started on Insulin drip and given 3 L of NS. Patient was accepted to the ICU for further care. During patients hospital stay patient was thought to be septic but resolved after treatment for DKA which also resolved on insulin drip and patient was able to be restarted on basal insulin. She however had no improvement in abdominal pain over 2 weeks so GI was consulted. CT of the abdomen/pelvis showed hepatomegaly measuring 20 cm and edematous; also noted was small amount of ascites worse in the pelvis. Abdominal ultrasound showed upper limits of normal size of spleen measuring up to 12 cm. GI consulted with recommendations for gastric empty study which showed delayed gastric emptying. EGD unrevealing but biopsies pending. Reglan started was started but patient had no improvement in symptoms. IV erythromycin was recommended but not in stock. Based upon patients lack of progress over her 20 day hospitalization stay patient will be transferred to [facility] for evaluation and management by hepatologists/GI; patient for consideration for gastric pacer. [facility] has accepted the patient and Dr. Seth will be the admitting doctor. - Time Spent with Patient Total time spent providing and/or coordinating discharge services: Less than 30 minutes - Constitutional Vitals: Temp Pulse Resp BP Pulse Ox 98.6 F 97 16 121/76 94 05/13/17 15:13 05/13/17 15:13 05/13/17 15:13 05/13/17 15:13 05/13/17 15:13 General appearance: Present: mild distress, A&O X 3, pleasant, answers questions appropriately - Respiratory Respiratory exam: Present: CTAB. Absent: accessory muscle use, rales, rhonchi, wheezes - Cardiovascular Cardiovascular exam: Present: RRR, +S1, +S2. Absent: diastolic murmur, gallop, rubs, systolic murmur - GI/Abdominal GI/Abdominal exam: Present: tenderness - VTE Documentation of Mechanical Device: Intermittent pneumatic compression device
[2017-05-14] MEDS ORDERED: *HR* HYDROmorphone (PF) 1 MG/ML SYRINGE IVP ONE (00:05)
[2017-05-14] MEDS: *HR* Promethazine 25 MG/ML VIAL IVP PRN ×3 (03:03→15:05)
[2017-05-14] MEDS: *HR* Heparin 5,000 UNIT/ML VIAL SQ SCH (05:20)
[2017-05-14] MEDS: Acetaminophen 325 MG TABLET PO PRN (06:49)
--- NOTE | 2017-05-14 08:01 | Physician Discharge Referral ---
ExtendedCare Referral Info Transfer To: [facility] Provider in Charge: Dr. Seth - Diagnosis (1) Abdominal pain Priority: Primary Status: Chronic (2) Ascites of liver Priority: Primary Status: Acute (3) DKA (diabetic ketoacidoses) Priority: Primary Status: Resolved (4) Sepsis Priority: Primary Status: Resolved (5) Gastroparesis diabeticorum Priority: Primary Status: Chronic (6) Hypertension Priority: Secondary Status: Chronic - Transfer Medications Home Medications: LORazepam [Ativan] 1 mg PO BID #6 12/18/16 [Rx] Metoprolol [Lopressor] 25 mg PO BID #60 tablet 12/18/16 [Rx] Insulin Glargine,Hum.rec.anlog [Lantus Solostar] 20 unit SQ BID 03/09/17 [ History] Sodium Bicarbonate 650 mg PO DAILY 03/09/17 [History] Cefdinir [Omnicef] 300 mg PO BID #6 capsule 03/12/17 [Rx] Insulin ASPART [NovoLOG] 10 unit SQ TIDWM PRN #5 vial 03/12/17 [Rx] OxyCODONE Immed Rel [Roxicodone 5 MG] 5 mg PO Q6HR PRN #20 tablet 03/12/17 [Rx] Phenazopyridine [Pyridium] 100 mg PO TID PRN #20 tablet 03/12/17 [Rx] Insulin ASPART [Novolog Flexpen] 2 - 10 unit SQ TIDWM 04/23/17 [History] Insulin Glargine,Hum.rec.anlog [Lantus Solostar] 10 - 20 unit SQ HS 04/23/17 [ History] Lisinopril/Hydrochlorothiazide [Zestoretic 20-12.5 mg Tablet] 1 tab PO DAILY [History] Metoprolol [Lopressor] 25 mg PO BID 04/23/17 [History] Sodium Bicarbonate 650 mg PO DAILY 04/23/17 [History] Allergies/Adverse Reactions: 3 Allergy/AdvReac Type Severity Reaction Status Date / Time hydrocodone Allergy Hives Verified 12/13/16 12:28 - Respiratory Orders Smoking Cessation: Smoking cessation has been advised. For more information, call the [place] Tobacco Quit Line at 5-512-EIWC-NOW. CERTIFICATION: I certify that the transfer of the above named patient to an Extended Care Facility is necessary for the continuing treatment of the diagnosis listed. The above information is true and accurate reflection of patient's current condition. Confidential - Redisclosure prohibited without a patient's written consent.
[2017-05-14 09:00] LABS: Basophils # 0.1 K/mcL (0.0-0.2); Basophils % 1.9 %; Eosinophils # 0.2 K/mcL (0.0-0.6); Eosinophils % 3.7 %; Hemoglobin 10.3 g/dL (11.5-15.4); Immature Granulocytes % 0.5 % (0-4); Lymphocytes # 2.8 K/mcL (0.6-4.6); Lymphocytes % 49.1 %; Mean Corpuscular HGB Conc 33.2 g/dL (31.6-35.5); Mean Corpuscular Hemoglobin 29.5 pg (28.0-33.3); Mean Corpuscular Volume 88.8 fL (83.0-100.0); Mean Platelet Volume 10.5 fL (9.4-12.4); Monocytes # 0.4 K/mcL (0.0-1.3); Monocytes % 7.7 %; Neutrophils # 2.1 K/mcL (1.6-8.9); Platelet Count 332 K/mcL (140-400); Red Blood Count 3.49 M/mcL (3.82-4.97); Red Cell Distribution Width 12.4 % (11.5-14.5); Segmented Neutrophils % 37.1 %
[2017-05-14] MEDS: Insulin DETEMIR 100 UNIT/ML X5UNITS SQ SCH (09:02)
[2017-05-14] MEDS: Insulin LISPRO 300 UNITS/3 ML VIAL SQ SCH ×2 (09:03→11:36)
[2017-05-14] MEDS: Metoclopramide 10 MG/10 ML UD.LIQ PO SCH ×2 (09:03→12:14)
[2017-05-14] MEDS: Furosemide 20 MG TABLET PO SCH (09:03)
[2017-05-14 09:12] LABS: BUN/Creatinine Ratio 42 (6-26); Blood Urea Nitrogen 48 mg/dL (6-20); Calcium 8.5 mg/dL (8.6-10.3); Carbon Dioxide 19 mEq/L (23-29); Chloride 110 mEq/L (98-107); Glucose 247 mg/dL (70-105); Osmolality,Calculated 303 (280-300); Potassium 5.2 mEq/L (3.5-5.1); Sodium 136 mEq/L (136-145); eGFR For African Americans > 60 (> 60); eGFR For Non-African Americans 55 (> 60)
[2017-05-14 11:18] VITALS: BP 115/76
[2017-05-14] MEDS ORDERED: FLUARIX QUAD 2017-18 36MOS UP/PF 0.5 ML SYRINGE IM ONE (14:03)
[2017-05-14] MEDS ORDERED: traMADol 50 MG TABLET PO ONE (14:06)
--- NOTE | 2017-05-14 16:33 | Event Note ---
Date of Encounter: 05/14/17 Time of Encounter: 11:00 Bed now available today and will be transferred this afternoon to [facility]; refer to discharge summary
== END 2017-05-14 15:54 | disposition critical access hospital (66) | DRG 720 ==
LOC: EMEROO 11:00 → MERGE 14:10 → ICNU 14:10 → SUATTDRO 14:10 → ICNU 14:46 → 3ANU 04-25 12:42
PROVIDERS: ADMIT Internal Medicine Hospice and Palliative Medicine; ATTEND Hospitalist
PROC: ENDOEBX (2017-05-01 14:00)

== ENCOUNTER 2017-08-01 14:55 | Inpatient (IN) ==
[2017-08-01 16:09] LABS: Bilirubin,Urine Negative (Negative); Blood,Urine Trace (Negative); Clarity,Urine Clear (Clear); Color,Urine Yellow (Yellow); Glucose,Urine (UA) >=1000 mg/dL (Normal); Ketones,Urine >=160 mg/dL (Negative); Leukocyte Esterase,Urine Negative (Negative); Nitrite,Urine Negative (Negative); Protein,Urine 30 mg/dL (Neg-Trace); Specific Gravity,Urine 1.029 (1.010-1.025); Urobilinogen,Urine Normal (Normal)
[2017-08-01 16:12] LABS: Bacteria,Urine Few per hpf (None-Few); Hyaline Casts,Urine None Seen per lpf (None-Few); Squamous Epithelial Cell,Urine Many per lpf (None-Few)
[2017-08-01] MEDS ORDERED: Insulin Human Regular 100 UNIT in 0.9 % Sodium Chloride 100 ML IVC SCH (16:30)
--- NOTE | 2017-08-01 16:34 | Emergency Department Note ---
Disposition Clinical Impression: DKA (diabetic ketoacidoses) Qualifiers: Diabetes mellitus type: type 1 Diabetes mellitus complication detail: without coma Qualified Code(s): E10.10 - Type 1 diabetes mellitus with ketoacidosis without coma Disposition: Admitted As Inpatient Condition: Critical Referrals: Zehra Jamison CNP [Primary Care Provider] - Forms: ED Satisfaction Letter, Work/School Release Time of Disposition: 19:20 General Adult HPI - General Chief complaint: ED General Medical Stated complaint: High glucose Time Seen by Provider: 08/01/17 15:58 Source: patient, family Limitations: no limitations Nursing Notes Reviewed: Yes Vital Signs Reviewed: Yes - History of Present Illness HPI Narrative: Mrs. Sierra, a 31yo female, presents from home for evaluation of hyperglycemia. Patient is a type I diabetic since age 10. History of gastroparesis. no she had URI type symptoms until developing nausea, vomiting, dehydration 2 days ago. Patient has previously been in DKA and states this feels the same. She notes she has, "a fruity taste. " Pain Scale: 8 - Related Data Home Medications Medication Instructions Recorded Confirmed Sodium Bicarbonate 650 mg PO DAILY 03/09/17 08/01/17 Insulin Glargine,Hum.rec.anlog 10 - 20 unit SQ HS 04/23/17 08/01/17 [Lantus Solostar] Lisinopril/Hydrochlorothiazide 1 tab PO DAILY 04/23/17 08/01/17 [Zestoretic 20-12.5 mg Tablet] Previous Rx's Medication Instructions Recorded Metoprolol [Lopressor] 25 mg PO BID #60 tablet 12/18/16 Insulin ASPART [NovoLOG] 10 unit SQ TIDWM PRN #5 vial 03/12/17 Allergies Allergy/AdvReac Type Severity Reaction Status Date / Time hydrocodone Allergy Hives Verified 12/13/16 12:28 All systems ED: reviewed and negative except as stated. Constitutional: Reports: chills, weakness. Denies: fever Cardiovascular: Denies: chest pain, palpitations Respiratory: Denies: cough, dyspnea Gastrointestinal: Reports: nausea, vomiting. Denies: abdominal pain, diarrhea, constipation Neurological: Reports: headache, weakness. 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 Tachypneic, no Kussmaul respirations. Bilateral breath sounds are clear without wheezing, crackles, or rhonchi. Cardiovascular: Tachycardic rate and regular rhythm. No clicks, rubs, gallops, or murmors. Normal heart sounds. Abdomen: Bowel sounds present normoactive x-4 quadrants. Abdomen is soft, nondistended, and nontender. No guarding or rebound. No organomegaly noted. Musculoskeletal: Spontaneously moving all extremities. Skin: cool, dry, intact. Brisk capillary refill. Neuro: Alert and oriented x4. Sensation light touch intact. Psych: Patient's affect is appropriate for situation. - General Limitations: no limitations General appearance: alert Course Course Narrative: Patient clinically appears to be in DKA. This is confirmed with laboratory workup. Patient placed on DKA order protocol. Her 1hr glucose re-check is >600 ; too high to read with bedside glucometer. BMP pending at end of shift. Patient's nausea has improved with zofran and phenegran. CXR unremarkable per radiology read. CT abd/pelvis wo contrast concerning for possible colitis. Will empirocally cover with antibiotics. Of note, patient does not report preceding loose stools , rather constipation. I discussed the above with the patient and her significant other bedside. They are in agreement to admission for continued management. I discussed the patient with the admitting hospitalist Dr. Mckay. He agrees to admission for continued management to . There are currently no 2N beds; patient will be 2N overflow to the ICU. Chest X-Ray 08/01/17 16:19 IMPRESSION: No acute cardiopulmonary disease. D/ / Kenneth Rai MD / Kenneth Rai MD Interpreting Provider: Kenneth Rai MD Abdomen/Pelvis CT 08/01/17 16:54 IMPRESSION: 1. Decompressed colon with mild diffuse circumferential wall thickening not excluded as can be seen with colitis. 2. Status post cholecystectomy and appendectomy. D/ / Chaz Cm MD / Chaz Cm MD Interpreting Provider: Chaz Cm MD Vital Signs Temperature 98.1 F 08/01/17 14:58 Pulse Rate 121 08/01/17 14:58 Respiratory Rate 18 08/01/17 14:58 Blood Pressure 120/66 08/01/17 14:58 O2 Sat by Pulse Oximetry 100 08/01/17 14:58 Temperature 98.1 F 08/01/17 14:58 Pulse Rate 132 08/01/17 18:28 Respiratory Rate 17 08/01/17 18:28 Blood Pressure 142/82 08/01/17 18:28 O2 Sat by Pulse Oximetry 100 08/01/17 18:28 Oxygen Delivery Oxygen Delivery Room Air Medical Decision Making - Lab Data Result diagrams: 08/01/17 16:32 08/01/17 16:32 Lab Results 08/01/17 08/01/17 08/01/17 Range/Units 15:00 15:01 15:50 WBC (4.3-11.1) K/mcL RBC (3.82-4.97) M/mcL Hgb (11.5-15.4) g/dL Hct (35.3-44.9) % MCV (83.0-100.0) fL MCH (28.0-33.3) pg MCHC (31.6-35.5) g/dL RDW (11.5-14.5) % Plt Count (140-400) K/mcL MPV (9.4-12.4) fL Immature Gran % (0-4) % Seg Neutrophils % % Lymphocytes % % Monocytes % % Eosinophils % % Basophils % % Neutrophils # (1.6-8.9) K/mcL Lymphocytes # (0.6-4.6) K/mcL Monocytes # (0.0-1.3) K/mcL Eosinophils # (0.0-0.6) K/mcL Basophils # (0.0-0.2) K/mcL Sodium (136-145) mEq/L Potassium (3.5-5.1) mEq/L Chloride (98-107) mEq/L Carbon Dioxide (23-29) mEq/L BUN (6-20) mg/dL Creatinine (0.60-1.20) mg/dL Est GFR ( Amer) (> 60) Est GFR (Non-Af Amer) (> 60) BUN/Creatinine Ratio (6-26) Glucose (70-105) mg/dL POC Glucose > 600 H* > 600 H* (70-99) mg/dL Calculated Osmolality (280-300) Lactic Acid (0.5-2.2) mmol/L Calcium (8.6-10.3) mg/dL Phosphorus (2.7-4.5) mg/dL Magnesium (1.6-2.6) mg/dL Troponin I (< 0.04) ng/mL Beta-Hydroxybutyric Acd (0.02-0.27) mmol/L Serum , Qual (Negative) Urine Color Yellow (Yellow) Urine Clarity Clear (Clear) Urine pH 6.0 (5.0-8.0) pH Units Ur Specific [place] 1.029 H (1.010-1.025) Urine Protein 30 H (Neg-Trace) mg/dL Urine Glucose (UA) >=1000 H (Normal) mg/dL Urine Ketones >=160 H (Negative) mg/dL Urine Blood Trace H (Negative) Urine Nitrite Negative (Negative) Urine Bilirubin Negative (Negative) Urine Urobilinogen Normal (Normal) mg/dL Ur Leukocyte Esterase Negative (Negative) Urine Microscopic RBC 3-5 H (0-3) per hpf Urine Microscopic WBC 3-5 H (0-3) per hpf Ur Squamous Epith Cells Many H (None-Few) per lpf Urine Bacteria Few (None-Few) per hpf Hyaline Casts None Seen (None-Few) per lpf Ur Culture Indicated? NO (NO) 08/01/17 08/01/17 08/01/17 Range/Units 16:32 16:32 16:32 WBC 13.4 H (4.3-11.1) K/mcL RBC 4.03 (3.82-4.97) M/mcL Hgb 12.0 (11.5-15.4) g/dL Hct 39.9 (35.3-44.9) % MCV 99.0 (83.0-100.0) fL MCH 29.8 (28.0-33.3) pg MCHC 30.1 L (31.6-35.5) g/dL RDW 15.2 H (11.5-14.5) % Plt Count 517 H (140-400) K/mcL MPV 10.4 (9.4-12.4) fL Immature Gran % 0.8 (0-4) % Seg Neutrophils % 75.3 % Lymphocytes % 16.1 % Monocytes % 6.3 % Eosinophils % 0.6 % Basophils % 0.9 % Neutrophils # 10.1 H (1.6-8.9) K/mcL Lymphocytes # 2.2 (0.6-4.6) K/mcL Monocytes # 0.8 (0.0-1.3) K/mcL Eosinophils # 0.1 (0.0-0.6) K/mcL Basophils # 0.1 (0.0-0.2) K/mcL Sodium 130 L (136-145) mEq/L Potassium 6.4 H (3.5-5.1) mEq/L Chloride 94 L (98-107) mEq/L Carbon Dioxide 4 L* (23-29) mEq/L BUN 22 H (6-20) mg/dL Creatinine 1.34 H (0.60-1.20) mg/dL Est GFR ( Amer) 56 L (> 60) Est GFR (Non-Af Amer) 46 L (> 60) BUN/Creatinine Ratio 16 (6-26) Glucose 856 H* (70-105) mg/dL POC Glucose (70-99) mg/dL Calculated Osmolality 315 H (280-300) Lactic Acid (0.5-2.2) mmol/L Calcium 9.4 (8.6-10.3) mg/dL Phosphorus 6.5 H (2.7-4.5) mg/dL Magnesium 2.4 (1.6-2.6) mg/dL Troponin I < 0.03 (< 0.04) ng/mL Beta-Hydroxybutyric Acd > 2.00 H (0.02-0.27) mmol/L Serum , Qual (Negative) Urine Color (Yellow) Urine Clarity (Clear) Urine pH (5.0-8.0) pH Units Ur Specific [place] (1.010-1.025) Urine Protein (Neg-Trace) mg/dL Urine Glucose (UA) (Normal) mg/dL Urine Ketones (Negative) mg/dL Urine Blood (Negative) Urine Nitrite (Negative) Urine Bilirubin (Negative) Urine Urobilinogen (Normal) mg/dL Ur Leukocyte Esterase (Negative) Urine Microscopic RBC (0-3) per hpf Urine Microscopic WBC (0-3) per hpf Ur Squamous Epith Cells (None-Few) per lpf Urine Bacteria (None-Few) per hpf Hyaline Casts (None-Few) per lpf Ur Culture Indicated? (NO) 08/01/17 08/01/17 Range/Units 16:32 17:00 WBC (4.3-11.1) K/mcL RBC (3.82-4.97) M/mcL Hgb (11.5-15.4) g/dL Hct (35.3-44.9) % MCV (83.0-100.0) fL MCH (28.0-33.3) pg MCHC (31.6-35.5) g/dL RDW (11.5-14.5) % Plt Count (140-400) K/mcL MPV (9.4-12.4) fL Immature Gran % (0-4) % Seg Neutrophils % % Lymphocytes % % Monocytes % % Eosinophils % % Basophils % % Neutrophils # (1.6-8.9) K/mcL Lymphocytes # (0.6-4.6) K/mcL Monocytes # (0.0-1.3) K/mcL Eosinophils # (0.0-0.6) K/mcL Basophils # (0.0-0.2) K/mcL Sodium (136-145) mEq/L Potassium (3.5-5.1) mEq/L Chloride (98-107) mEq/L Carbon Dioxide (23-29) mEq/L BUN (6-20) mg/dL Creatinine (0.60-1.20) mg/dL Est GFR ( Amer) (> 60) Est GFR (Non-Af Amer) (> 60) BUN/Creatinine Ratio (6-26) Glucose (70-105) mg/dL POC Glucose (70-99) mg/dL Calculated Osmolality (280-300) Lactic Acid < 0.2 L (0.5-2.2) mmol/L Calcium (8.6-10.3) mg/dL Phosphorus (2.7-4.5) mg/dL Magnesium (1.6-2.6) mg/dL Troponin I (< 0.04) ng/mL Beta-Hydroxybutyric Acd (0.02-0.27) mmol/L Serum , Qual Negative (Negative) Urine Color (Yellow) Urine Clarity (Clear) Urine pH (5.0-8.0) pH Units Ur Specific [place] (1.010-1.025) Urine Protein (Neg-Trace) mg/dL Urine Glucose (UA) (Normal) mg/dL Urine Ketones (Negative) mg/dL Urine Blood (Negative) Urine Nitrite (Negative) Urine Bilirubin (Negative) Urine Urobilinogen (Normal) mg/dL Ur Leukocyte Esterase (Negative) Urine Microscopic RBC (0-3) per hpf Urine Microscopic WBC (0-3) per hpf Ur Squamous Epith Cells (None-Few) per lpf Urine Bacteria (None-Few) per hpf Hyaline Casts (None-Few) per lpf Ur Culture Indicated? (NO)
[2017-08-01] MEDS: 0.9 % Sodium Chloride 1,000 ML IVC SCH ×3 (16:39→22:02)
[2017-08-01 16:40] LABS: Basophils # 0.1 K/mcL (0.0-0.2); Basophils % 0.9 %; Eosinophils # 0.1 K/mcL (0.0-0.6); Eosinophils % 0.6 %; Hematocrit 39.9 % (35.3-44.9); Immature Granulocytes % 0.8 % (0-4); Lymphocytes # 2.2 K/mcL (0.6-4.6); Lymphocytes % 16.1 %; Mean Corpuscular HGB Conc 30.1 g/dL (31.6-35.5); Mean Corpuscular Hemoglobin 29.8 pg (28.0-33.3); Mean Platelet Volume 10.4 fL (9.4-12.4); Monocytes # 0.8 K/mcL (0.0-1.3); Monocytes % 6.3 %; Neutrophils # 10.1 K/mcL (1.6-8.9); Platelet Count 517 K/mcL (140-400); Red Blood Count 4.03 M/mcL (3.82-4.97); Red Cell Distribution Width 15.2 % (11.5-14.5); Segmented Neutrophils % 75.3 %
[2017-08-01] MEDS ORDERED: Ondansetron 4 MG/2 ML VIAL IVP ONE ×2 (16:47→18:33)
[2017-08-01] MEDS ORDERED: 0.9 % Sodium Chloride 1,000 ML IVC ONE ×2 (16:56→20:00)
[2017-08-01 17:01] LABS: Troponin I < 0.03 ng/mL (< 0.04)
[2017-08-01 17:22] LABS: BUN/Creatinine Ratio 16 (6-26); Blood Urea Nitrogen 22 mg/dL (6-20); Calcium 9.4 mg/dL (8.6-10.3); Carbon Dioxide 4 mEq/L (23-29); Chloride 94 mEq/L (98-107); Magnesium 2.4 mg/dL (1.6-2.6); Osmolality,Calculated 315 (280-300); Phosphorous 6.5 mg/dL (2.7-4.5); Potassium 6.4 mEq/L (3.5-5.1); Sodium 130 mEq/L (136-145); eGFR For African Americans 56 (> 60); eGFR For Non-African Americans 46 (> 60)
[2017-08-01 17:24] LABS: Glucose 856 mg/dL (70-105)
--- NOTE | 2017-08-01 18:07 | Emergency Department Note ---
Disposition Clinical Impression: DKA (diabetic ketoacidoses) Qualifiers: Diabetes mellitus type: type 1 Diabetes mellitus complication detail: without coma Qualified Code(s): E10.10 - Type 1 diabetes mellitus with ketoacidosis without coma Disposition: Admitted As Inpatient Condition: Critical Referrals: Zehra Jamison CNP [Primary Care Provider] - Forms: ED Satisfaction Letter, Work/School Release General Adult HPI - General Chief complaint: ED General Medical Stated complaint: High glucose Time Seen by Provider: 08/01/17 15:58 Source: patient, family Mode of arrival: ambulatory Limitations: no limitations Nursing Notes Reviewed: Yes Vital Signs Reviewed: Yes - History of Present Illness Pain Scale: 8 - Related Data Home Medications Medication Instructions Recorded Confirmed Sodium Bicarbonate 650 mg PO DAILY 03/09/17 08/01/17 Insulin Glargine,Hum.rec.anlog 10 - 20 unit SQ HS 04/23/17 08/01/17 [Lantus Solostar] Lisinopril/Hydrochlorothiazide 1 tab PO DAILY 04/23/17 08/01/17 [Zestoretic 20-12.5 mg Tablet] Previous Rx's Medication Instructions Recorded Metoprolol [Lopressor] 25 mg PO BID #60 tablet 12/18/16 Insulin ASPART [NovoLOG] 10 unit SQ TIDWM PRN #5 vial 03/12/17 Allergies Allergy/AdvReac Type Severity Reaction Status Date / Time hydrocodone Allergy Hives Verified 12/13/16 12:28 All systems ED: reviewed and negative except as stated. Review of Systems: As Per HPI Constitutional: Reports: chills, weakness. Denies: fever Cardiovascular: Denies: chest pain, palpitations Respiratory: Denies: cough, dyspnea Gastrointestinal: Reports: nausea, vomiting. Denies: abdominal pain, diarrhea, constipation Neurological: Reports: headache, weakness. 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 - Social History Smoking Status: Unknown if ever smoked Smokeless Tobacco Status: No Alcohol use: Reports: none Drug use: Reports: cocaine Physical Exam - General Limitations: no limitations General appearance: alert Course Vital Signs Temperature 98.1 F 08/01/17 14:58 Pulse Rate 121 08/01/17 14:58 Respiratory Rate 18 08/01/17 14:58 Blood Pressure 120/66 08/01/17 14:58 O2 Sat by Pulse Oximetry 100 08/01/17 14:58 Temperature 98.1 F 08/01/17 14:58 Pulse Rate 132 08/01/17 18:28 Respiratory Rate 17 08/01/17 18:28 Blood Pressure 142/82 08/01/17 18:28 O2 Sat by Pulse Oximetry 100 08/01/17 18:28 Oxygen Delivery Oxygen Delivery Room Air Medical Decision Making - Lab Data Result diagrams: 08/01/17 16:32 08/01/17 16:32 Lab Results 08/01/17 08/01/17 08/01/17 Range/Units 15:00 15:01 15:50 WBC (4.3-11.1) K/mcL RBC (3.82-4.97) M/mcL Hgb (11.5-15.4) g/dL Hct (35.3-44.9) % MCV (83.0-100.0) fL MCH (28.0-33.3) pg MCHC (31.6-35.5) g/dL RDW (11.5-14.5) % Plt Count (140-400) K/mcL MPV (9.4-12.4) fL Immature Gran % (0-4) % Seg Neutrophils % % Lymphocytes % % Monocytes % % Eosinophils % % Basophils % % Neutrophils # (1.6-8.9) K/mcL Lymphocytes # (0.6-4.6) K/mcL Monocytes # (0.0-1.3) K/mcL Eosinophils # (0.0-0.6) K/mcL Basophils # (0.0-0.2) K/mcL Sodium (136-145) mEq/L Potassium (3.5-5.1) mEq/L Chloride (98-107) mEq/L Carbon Dioxide (23-29) mEq/L BUN (6-20) mg/dL Creatinine (0.60-1.20) mg/dL Est GFR ( Amer) (> 60) Est GFR (Non-Af Amer) (> 60) BUN/Creatinine Ratio (6-26) Glucose (70-105) mg/dL POC Glucose > 600 H* > 600 H* (70-99) mg/dL Calculated Osmolality (280-300) Lactic Acid (0.5-2.2) mmol/L Calcium (8.6-10.3) mg/dL Phosphorus (2.7-4.5) mg/dL Magnesium (1.6-2.6) mg/dL Troponin I (< 0.04) ng/mL Beta-Hydroxybutyric Acd (0.02-0.27) mmol/L Serum , Qual (Negative) Urine Color Yellow (Yellow) Urine Clarity Clear (Clear) Urine pH 6.0 (5.0-8.0) pH Units Ur Specific [place] 1.029 H (1.010-1.025) Urine Protein 30 H (Neg-Trace) mg/dL Urine Glucose (UA) >=1000 H (Normal) mg/dL Urine Ketones >=160 H (Negative) mg/dL Urine Blood Trace H (Negative) Urine Nitrite Negative (Negative) Urine Bilirubin Negative (Negative) Urine Urobilinogen Normal (Normal) mg/dL Ur Leukocyte Esterase Negative (Negative) Urine Microscopic RBC 3-5 H (0-3) per hpf Urine Microscopic WBC 3-5 H (0-3) per hpf Ur Squamous Epith Cells Many H (None-Few) per lpf Urine Bacteria Few (None-Few) per hpf Hyaline Casts None Seen (None-Few) per lpf Ur Culture Indicated? NO (NO) 08/01/17 08/01/17 08/01/17 Range/Units 16:32 16:32 16:32 WBC 13.4 H (4.3-11.1) K/mcL RBC 4.03 (3.82-4.97) M/mcL Hgb 12.0 (11.5-15.4) g/dL Hct 39.9 (35.3-44.9) % MCV 99.0 (83.0-100.0) fL MCH 29.8 (28.0-33.3) pg MCHC 30.1 L (31.6-35.5) g/dL RDW 15.2 H (11.5-14.5) % Plt Count 517 H (140-400) K/mcL MPV 10.4 (9.4-12.4) fL Immature Gran % 0.8 (0-4) % Seg Neutrophils % 75.3 % Lymphocytes % 16.1 % Monocytes % 6.3 % Eosinophils % 0.6 % Basophils % 0.9 % Neutrophils # 10.1 H (1.6-8.9) K/mcL Lymphocytes # 2.2 (0.6-4.6) K/mcL Monocytes # 0.8 (0.0-1.3) K/mcL Eosinophils # 0.1 (0.0-0.6) K/mcL Basophils # 0.1 (0.0-0.2) K/mcL Sodium 130 L (136-145) mEq/L Potassium 6.4 H (3.5-5.1) mEq/L Chloride 94 L (98-107) mEq/L Carbon Dioxide 4 L* (23-29) mEq/L BUN 22 H (6-20) mg/dL Creatinine 1.34 H (0.60-1.20) mg/dL Est GFR ( Amer) 56 L (> 60) Est GFR (Non-Af Amer) 46 L (> 60) BUN/Creatinine Ratio 16 (6-26) Glucose 856 H* (70-105) mg/dL POC Glucose (70-99) mg/dL Calculated Osmolality 315 H (280-300) Lactic Acid (0.5-2.2) mmol/L Calcium 9.4 (8.6-10.3) mg/dL Phosphorus 6.5 H (2.7-4.5) mg/dL Magnesium 2.4 (1.6-2.6) mg/dL Troponin I < 0.03 (< 0.04) ng/mL Beta-Hydroxybutyric Acd > 2.00 H (0.02-0.27) mmol/L Serum , Qual (Negative) Urine Color (Yellow) Urine Clarity (Clear) Urine pH (5.0-8.0) pH Units Ur Specific [place] (1.010-1.025) Urine Protein (Neg-Trace) mg/dL Urine Glucose (UA) (Normal) mg/dL Urine Ketones (Negative) mg/dL Urine Blood (Negative) Urine Nitrite (Negative) Urine Bilirubin (Negative) Urine Urobilinogen (Normal) mg/dL Ur Leukocyte Esterase (Negative) Urine Microscopic RBC (0-3) per hpf Urine Microscopic WBC (0-3) per hpf Ur Squamous Epith Cells (None-Few) per lpf Urine Bacteria (None-Few) per hpf Hyaline Casts (None-Few) per lpf Ur Culture Indicated? (NO) 08/01/17 08/01/17 Range/Units 16:32 17:00 WBC (4.3-11.1) K/mcL RBC (3.82-4.97) M/mcL Hgb (11.5-15.4) g/dL Hct (35.3-44.9) % MCV (83.0-100.0) fL MCH (28.0-33.3) pg MCHC (31.6-35.5) g/dL RDW (11.5-14.5) % Plt Count (140-400) K/mcL MPV (9.4-12.4) fL Immature Gran % (0-4) % Seg Neutrophils % % Lymphocytes % % Monocytes % % Eosinophils % % Basophils % % Neutrophils # (1.6-8.9) K/mcL Lymphocytes # (0.6-4.6) K/mcL Monocytes # (0.0-1.3) K/mcL Eosinophils # (0.0-0.6) K/mcL Basophils # (0.0-0.2) K/mcL Sodium (136-145) mEq/L Potassium (3.5-5.1) mEq/L Chloride (98-107) mEq/L Carbon Dioxide (23-29) mEq/L BUN (6-20) mg/dL Creatinine (0.60-1.20) mg/dL Est GFR ( Amer) (> 60) Est GFR (Non-Af Amer) (> 60) BUN/Creatinine Ratio (6-26) Glucose (70-105) mg/dL POC Glucose (70-99) mg/dL Calculated Osmolality (280-300) Lactic Acid < 0.2 L (0.5-2.2) mmol/L Calcium (8.6-10.3) mg/dL Phosphorus (2.7-4.5) mg/dL Magnesium (1.6-2.6) mg/dL Troponin I (< 0.04) ng/mL Beta-Hydroxybutyric Acd (0.02-0.27) mmol/L Serum , Qual Negative (Negative) Urine Color (Yellow) Urine Clarity (Clear) Urine pH (5.0-8.0) pH Units Ur Specific [place] (1.010-1.025) Urine Protein (Neg-Trace) mg/dL Urine Glucose (UA) (Normal) mg/dL Urine Ketones (Negative) mg/dL Urine Blood (Negative) Urine Nitrite (Negative) Urine Bilirubin (Negative) Urine Urobilinogen (Normal) mg/dL Ur Leukocyte Esterase (Negative) Urine Microscopic RBC (0-3) per hpf Urine Microscopic WBC (0-3) per hpf Ur Squamous Epith Cells (None-Few) per lpf Urine Bacteria (None-Few) per hpf Hyaline Casts (None-Few) per lpf Ur Culture Indicated? (NO) Attestation Statement - Attestation Attestation: I, Jax Mae, examined this patient and my medical decision-making was reviewed with the PROPERTY ADMINISTRATOR/PA/Advanced Practice Nurse/Resident Physician. I agree with the documented findings, disposition and treatment plan as described except to the extent set forth below. 31-year-old female presents emergency Department with concerns of abdominal pain , elevated blood sugars. Patient states she has had similar symptoms with hyperglycemia in the past. She denies missing any of her medications. Denies recent fever, chills, diarrhea, rash, recent trauma. Patient does have lower abdominal pain but denies dysuria, vaginal bleeding, vaginal discharge. Patient is in DKA and was given multiple liters of IV fluids. She was given insulin in the emergency department. She will be admitted to hospitalist for further care and evaluation of her DKA.
[2017-08-01] MEDS ORDERED: MetroNIDAZOLE 500 MG/100 ML 500 MG/100 ML BAG IVPB ONE (18:35)
[2017-08-01] MEDS ORDERED: *HR* Promethazine 25 MG/ML VIAL IVP ONE (18:53)
[2017-08-01 19:55] LABS: BUN/Creatinine Ratio 18 (6-26); Blood Urea Nitrogen 22 mg/dL (6-20); Calcium 8.4 mg/dL (8.6-10.3); Carbon Dioxide 3 mEq/L (23-29); Chloride 105 mEq/L (98-107); Glucose 694 mg/dL (70-105); Osmolality,Calculated 320 (280-300); Potassium 5.6 mEq/L (3.5-5.1); Sodium 137 mEq/L (136-145); eGFR For African Americans > 60 (> 60); eGFR For Non-African Americans 50 (> 60)
[2017-08-01] MEDS ORDERED: Acetaminophen 325 MG TABLET PO PRN (20:15)
[2017-08-01] MEDS ORDERED: Naloxone 0.4 MG/ML INJ IVP PRN (20:15)
--- NOTE | 2017-08-01 20:31 | Internal Med History&Physical ---
<Tawana Peters H - Last Filed: 08/01/17 21:19> Date of Encounter: 08/01/17 Time of Encounter: 20:27 Internal Medicine - H&P: HPI Chief complaint: shortness of breath, nausea & vomitting, hyperglycemia Admitted From: Emergency Dept Plans for Post Hospital Care: Home History of present illness: Ms. Sierra is a 31 year old female with PMHx of DM1, gastroparesis, HTN, legally blind, CKD, and neuropathy with multiple hospitalizations for DKA who presented to [facility] on 08/01/2017 with cc of SOB, nausea, and vomitting. Patient found to be in DKA. Patient presented to the ED this evening after developing shortness of breath and cough yesterday. She states her blood sugars have been incredibly difficult to control over the past 3 days ranging in the 300 to 500 range. The lowest she was able to get her glucose was 240. She states she developed nausea and vomitting today. Her says that she is scheduled to go to [facility] for a gastric stimulator for gastroparesis next week. States she has been in discussion with her hydro pneumatic tester regarding insulin pump. Patient denies recent sick contacts. She denies fevers, chills, or night sweats. She does report abdominal pain, nausea and vomitting. She denies diarrhea, melena, hematemsis, hematochezia, dysuria, or hematuria. She appears uncomfortable and is very tachycardic to 140s. CT abd/pelvis in ED demonstrates colonic thickening. No other abnormalities noted. K 6.3, Anion gap 32, bicarb 4 , Na 130. Will admit patient to ICU and initiate DKA order set/resuscitation. Past Med Surg Social Fam HX - Past Medical History Attestation: Yes The following information was validated with the patient. Source: patient Medical history: diabetes, GERD, glaucoma, hyperlipidemia, arthritis, hypertension, liver disease, osteoporosis, cirrhosis Psychiatric history: anxiety - Past Surgical History Surgical History: appendectomy, , cholecystectomy, sinus surgery, other - Social History Smoking Status: Unknown if ever smoked Smokeless Tobacco Status: No Alcohol use: none Drug use: cocaine - Family History Grandmother Family Member Ethnicity: Non- Living Status: Still Living Hx Family Cardiac Disorders: No Hx Family Respiratory Disorders: No Hx Family Cancer: No Hx Family GI Disorders: No Hx Family Endocrine Disorder: Yes (type 2 diabetes) Hx Family Neuromuscular Disorders: No Hx Family Neurologic Disorders: Yes (stroke) Hx Family HEENT Disorders: No Hx Family Autoimmune Disorders: No Internal Medicine - H&P: Meds Metoprolol [Lopressor] 25 mg PO BID #60 tablet 12/18/16 [Rx] Sodium Bicarbonate 650 mg PO DAILY 03/09/17 [History] Insulin ASPART [NovoLOG] 10 unit SQ TIDWM PRN #5 vial 03/12/17 [Rx] Insulin Glargine,Hum.rec.anlog [Lantus Solostar] 10 - 20 unit SQ HS 04/23/17 [ History] Lisinopril/Hydrochlorothiazide [Zestoretic 20-12.5 mg Tablet] 1 tab PO DAILY [History] 3 Allergy/AdvReac Type Severity Reaction Status Date / Time hydrocodone Allergy Hives Verified 12/13/16 12:28 All Systems PM: A 10-system review of systems was performed and is negative for pertinent findings except as documented above in the HPI. - Constitutional Constitutional: fatigue, lethargy, no chills, no fever(s), no weight gain, no weight loss - EENT Eyes: loss of vision (chronic), no dry eye Ears: ear pain Nose, mouth and throat: no neck pain, no sinus pain, no sinus pressure - Cardiovascular Cardiovascular ROS IM: dyspnea, no chest pain, no dyspnea on exertion, no edema , no irregular heart rhythm, no orthopnea, no palpitations - Respiratory Respiratory: cough, dyspnea, no hemoptysis, no chest congestion - Gastrointestinal Gastrointestinal: abdominal pain, heartburn, nausea, vomiting, no coffee ground emesis, no constipation, no diarrhea, no melena - Integumentary Integumentary IM: pruritus, rash, no new lesions, no non-healing lesions - Neurological Neurological ROS: loss of vision - Endocrine Endocrine IM: no cold intolerance - Hematologic/Lymphatic Hematologic/Lymphatic: no easy bruising - Allergic/Immunologic Allergic/Immunologic: no tongue swelling, no wheezing - Constitutional Vitals: Temp Pulse Resp BP Pulse Ox 98.1 F 132 17 142/82 100 08/01/17 14:58 08/01/17 18:28 08/01/17 18:28 08/01/17 18:28 08/01/17 18:28 General appearance: Present: cooperative, A&O X 3, severe distress, answers questions appropriately - Head Head exam: Present: atraumatic, normocephalic - Eye Eye exam: Present: PERRL, conjuntiva pink, sclera anicteric Pupils: Present: PERRL - ENT ENT exam: Present: mucous membranes dry, TM's normal bilaterally - Neck Neck exam general surgery: Present: supple, trachea midline. Absent: lymphadenopathy - Respiratory Respiratory exam: Present: CTAB (kussmaul breathing). Absent: accessory muscle use, rales, rhonchi, wheezes - Cardiovascular Cardiovascular exam: Present: +S1, +S2, tachycardia - GI/Abdominal GI/Abdominal exam: Present: normal bowel sounds, soft, tenderness (right lower and upper quadrant pain), no peritoneal signs. Absent: distended, firm, guarding - Extremities Exam Extremities exam: Present: warm, radial pulses palpable and symmetrical. Absent : calf tenderness, pedal edema - Neurological Exam Neurological exam: Present: alert, oriented X3, no focal deficits - Skin Skin exam: Present: dry, intact, warm. Absent: pallor Internal Med - H&P Results - Labs CBC & Chem 7: 08/01/17 16:32 08/01/17 19:12 Labs: Short CBC 08/01/17 Range/Units 16:32 WBC 13.4 H (4.3-11.1) K/mcL Hgb 12.0 (11.5-15.4) g/dL Hct 39.9 (35.3-44.9) % Plt Count 517 H (140-400) K/mcL Neutrophils # 10.1 H (1.6-8.9) K/mcL BMP 08/01/17 08/01/17 16:32 19:12 Sodium 130 L 137 Potassium 6.4 H 5.6 H Chloride 94 L 105 Carbon Dioxide 4 L* 3 L* BUN 22 H 22 H Creatinine 1.34 H 1.25 H Glucose 856 H* 694 H* Calcium 9.4 8.4 L Cardiac Enzymes 08/01/17 Range/Units 16:32 Troponin I < 0.03 (< 0.04) ng/mL Urine 08/01/17 Range/Units 15:50 Urine Color Yellow (Yellow) Urine Clarity Clear (Clear) Urine pH 6.0 (5.0-8.0) pH Units Ur Specific Evans 1.029 H (1.010-1.025) Urine Protein 30 H (Neg-Trace) mg/dL Urine Glucose (UA) >=1000 H (Normal) mg/dL - Impressions ITS Impressions Chest X-Ray 08/01/17 16:19 IMPRESSION: No acute cardiopulmonary disease. D/ / Kenneth Rai MD / Kenneth Rai MD Interpreting Provider: Kenneth Rai MD Abdomen/Pelvis CT 08/01/17 16:54 IMPRESSION: 1. Decompressed colon with mild diffuse circumferential wall thickening not excluded as can be seen with colitis. 2. Status post cholecystectomy and appendectomy. D/ / Chaz Cm MD / Chaz Cm MD Interpreting Provider: Chaz Cm MD - Assessment and plan (1) DKA (diabetic ketoacidoses) Current Visit: Yes Status: Acute Assessment and plan: 31 yo female with PMHX DM1 s/p multiple hospital admissions for DKA here in DKA. -IV Fluids -IV insulin drip, parameters entered according to protocol -hypoglycemia protocol -cardiac telemetry -potassium repletion if necessary -FU blood cultures Qualifiers: Diabetes mellitus type: type 1 Diabetes mellitus complication detail: without coma Qualified Code(s): E10.10 - Type 1 diabetes mellitus with ketoacidosis without coma (2) Nausea & vomiting Current Visit: No Status: Acute Assessment and plan: CT abdomen and pelvis with colonic thickening suggestive of colitis. -Likely unrelated to infectious etiology, suspect sequelae of DKA. -Will discontinue metronidazole and ciprofloxacin. -zofran -hydration Qualifiers: Vomiting type: unspecified Vomiting Intractability: non-intractable Qualified Code(s): R11.2 - Nausea with vomiting, unspecified (3) Cough Current Visit: Yes Status: Acute Assessment and plan: Viral illness could be contributing to onset of DKA. -Will give dextromethorphan q6hr. (4) Abdominal pain Current Visit: No Status: Acute Assessment and plan: See management above for nausea and vomitting. -Will give PPI for GERD secondary to vomitting. Qualifiers: Abdominal location: right lower quadrant Qualified Code(s): R10.31 - Right lower quadrant pain (5) Hyperkalemia Current Visit: No Status: Acute Assessment and plan: K 6.3 Will continue to monitor BMP q 4 hours times 6. -Insulin drip. (6) Diabetes mellitus type 1 Current Visit: No Status: Chronic Assessment and plan: Patient with many complications secondary to uncontrolled DM1 for 20 years. -Patient states she has been undergoing discussion for insulin pump. -consultation in [facility] next week for gastric stimulator. Qualifiers: Diabetes mellitus complication status: with kidney complications Diabetes mellitus complication detail: with chronic kidney disease Chronic kidney disease stage: unspecified stage Qualified Code(s): E10.22 - Type 1 diabetes mellitus with diabetic chronic kidney disease - Time Spent With Patient Total time spent is greater than 50% in coordination of care (as documented) at patient's floor/unit and/or counseling patient: <Dipti Barksdale - Last Filed: 08/01/17 22:57> Date of Encounter: 08/01/17 Internal Medicine - H&P: HPI History of present illness: Ms. Sierra is a 31 year old female All Systems PM: A 10-system review of systems was performed and is negative for pertinent findings except as documented above in the HPI. - Constitutional Vitals: Temp Pulse Resp BP Pulse Ox 99.5 F 128 21 139/84 100 08/01/17 21:31 08/01/17 21:31 08/01/17 21:31 08/01/17 21:31 08/01/17 21:31 Internal Med - H&P Results - Labs CBC & Chem 7: 08/01/17 16:32 08/01/17 19:12 - ABG Interpretation ABG results: 08/01/17 20:28 VBG pH 6.98 L* VBG pCO2 24 L VBG pO2 99 H VBG HCO3 6 L - Attending Attestation I have seen and examined this patient independently. I have discussed with resident physician Dr Peters regarding the management plan. Agree with the documentation. - Time Spent With Patient Total time spent is greater than 50% in coordination of care (as documented) at patient's floor/unit and/or counseling patient:
[2017-08-01 20:42] LABS: VBG HCO3 6 mEq/L (21-27); VBG PCO2 24 mmHg (41-51); VBG PH 6.98 pH Units (7.32-7.42); VBG PO2 99 mmHg (25-50)
[2017-08-01] MEDS: Pantoprazole 40 MG VIAL IVP SCH (22:38)
[2017-08-02] MEDS: *HR* Promethazine 25 MG/ML VIAL IVP PRN ×4 (00:47→22:34)
[2017-08-02 00:54] LABS: BUN/Creatinine Ratio 14 (6-26); Blood Urea Nitrogen 16 mg/dL (6-20); Calcium 7.4 mg/dL (8.6-10.3); Carbon Dioxide 9 mEq/L (23-29); Chloride 116 mEq/L (98-107); Glucose 231 mg/dL (70-105); Osmolality,Calculated 305 (280-300); Sodium 143 mEq/L (136-145); eGFR For African Americans > 60 (> 60); eGFR For Non-African Americans 57 (> 60)
[2017-08-02] MEDS: D5% in 0.45% NACL 1,000 ML IVC PRN ×2 (01:05→05:53)
[2017-08-02] MEDS: 0.9 % Sodium Chloride 1,000 ML IVC SCH ×4 (01:05→16:08)
[2017-08-02] MEDS: OXYCODONE Oral CONC 10 MG/0.5 ML ORAL.SYG SL PRN ×2 (01:05→16:09)
[2017-08-02] MEDS ORDERED: Insulin Regular, Human 100 UNIT/ML IV PRN (02:49)
[2017-08-02] MEDS: Insulin Human Regular 100 UNIT in 0.9 % Sodium Chloride 100 ML IVC SCH ×2 (03:46→09:01)
[2017-08-02 04:30] LABS: Basophils % 0.3 %; Hematocrit 26.3 % (35.3-44.9); Immature Granulocytes % 0.6 % (0-4); Lymphocytes # 1.9 K/mcL (0.6-4.6); Lymphocytes % 17.5 %; Mean Corpuscular HGB Conc 32.3 g/dL (31.6-35.5); Mean Corpuscular Hemoglobin 29.9 pg (28.0-33.3); Mean Platelet Volume 9.8 fL (9.4-12.4); Monocytes # 0.9 K/mcL (0.0-1.3); Monocytes % 8.7 %; Neutrophils # 7.7 K/mcL (1.6-8.9); Platelet Count 315 K/mcL (140-400); Red Blood Count 2.84 M/mcL (3.82-4.97); Red Cell Distribution Width 15.3 % (11.5-14.5); Segmented Neutrophils % 72.9 %
[2017-08-02 04:34] LABS: Hemoglobin 8.5 g/dL (11.5-15.4); Mean Corpuscular Volume 92.6 fL (83.0-100.0)
[2017-08-02 04:43] LABS: BUN/Creatinine Ratio 13 (6-26); Blood Urea Nitrogen 13 mg/dL (6-20); Calcium 7.3 mg/dL (8.6-10.3); Carbon Dioxide 13 mEq/L (23-29); Chloride 119 mEq/L (98-107); Glucose 185 mg/dL (70-105); Magnesium 1.9 mg/dL (1.6-2.6); Osmolality,Calculated 301 (280-300); Phosphorous 1.5 mg/dL (2.7-4.5); Potassium 3.9 mEq/L (3.5-5.1); Sodium 143 mEq/L (136-145); eGFR For African Americans > 60 (> 60); eGFR For Non-African Americans > 60 (> 60)
[2017-08-02 08:14] LABS: Estimated Average Glucose 229 mg/dl; Hemoglobin A1C 9.6 %
[2017-08-02] MEDS ORDERED: D5% in 0.45% NACL w KCl 20 MEQ/1,000 ML MLS IVC SCH (08:30)
[2017-08-02] MEDS ORDERED: D5% in 0.45% NACL w KCl 20 MEQ/1,000 ML MLS IVC ONE (08:33)
[2017-08-02] MEDS: Pantoprazole 40 MG VIAL IVP SCH (08:41)
--- NOTE | 2017-08-02 08:41 | Internal Med Progress Note ---
<KhanhsonaliRonni pete - Last Filed: 08/02/17 10:30> Date of Encounter: 08/02/17 Time of Encounter: 08:39 - Assessment and plan (1) DKA (diabetic ketoacidoses) Current Visit: Yes Status: Acute Assessment and plan: 31-year-old female admitted with diabetic ketoacidosis with glucose greater than 600, anion gap of 30, venous blood gas 6.98, PCO2 24, PO2 99, bicarbonate 6 - Patient started on diabetic ketoacidosis current closure of her anion gap - Hyperglycemia resolved - Acidosis improving, current bicarbonate 19 Plan: - Continue insulin drip per protocol - We will start subcutaneous heparin with 1 hour overlap with insulin drip - Continue D5 with half-normal saline +20meq potassium - Continue every 4 hours chemistry panel check - Replace electrolytes as necessary Qualifiers: Diabetes mellitus type: type 1 Diabetes mellitus complication detail: without coma Qualified Code(s): E10.10 - Type 1 diabetes mellitus with ketoacidosis without coma (2) Abdominal pain Current Visit: No Status: Acute Assessment and plan: Likely secondary metabolic acidosis in the setting of diabetic ketoacidosis. - CT of the abdomen and pelvis demonstrated decompressed colon with mild diffuse circumferential wall thickening- may represent colitis, no other acute findings. - CT scan reviewed with radiologist, no significant findings. - Patient denies diarrhea, fevers chills diaphoresis. Clinical picture not concerning for colitis. (3) Hyperkalemia Current Visit: No Status: Acute Assessment and plan: Patient presented with hyperkalemia and a set of diabetic ketoacidosis this has since resolved with IV insulin and glucose treatment of DKA. - Continue to monitor in the setting of treatment of DKA. (4) 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 Assessment and plan: Known history of gastroparesis and poor absorption. - Chronic medical problem. (5) Metabolic acidosis Current Visit: No Status: Resolved Assessment and plan: Improving, secondary to diabetic ketoacidosis. - Time Spent With Patient Total time spent is greater than 50% in coordination of care (as documented) at patient's floor/unit and/or counseling patient: - Subjective Interval history: Miss Sierra 31-year-old female seen and evaluated patient bedside this morning. She is alert awake interactive complains of some mild right lower abdominal pain, no fevers, chills, diaphoresis. She had some nausea which she says improved and tolerated pills last evening. She states that prior to coming to the hospital her glucoses were hard to control and they are in the upper 2 to 300s before they were unreadable. She states last [facility] for diabetic ketoacidosis with 3-4 months ago. She is denied any oral intake in the last 3-4 days preceding her current admission. She is unsure of what we be the initiating factor. Denies any noticeable erythema, edema, lesions [place], discomfort with urination, burning or blood in her urine. She understands that she may currently require continued IV insulin until correction of her acidosis. - Constitutional Vitals: Temp Pulse Resp BP Pulse Ox 98.4 F 99 18 109/72 97 08/02/17 06:38 08/02/17 06:38 08/02/17 06:38 08/02/17 06:38 08/02/17 06:38 General appearance: Present: cooperative, A&O X 3, severe distress, answers questions appropriately Exam: General: Patient alert, awake, oriented 3, interactive, mild distress HEENT: Normocephalic, atraumatic, pupils equal reactive to light, poor dentition neck supple trachea midline no palpable lymphadenopathy, no thyromegaly. Chest: Symmetric bilateral correlating with respiratory effort, effort nonlabored. Cardiac: Irregular rhythm with appropriate rate, positive S2, S1, Radial pulses 2+ bilateral, posterior tibial and dorsal pedal pulses 2+ bilateral. Respiratory: Clear to auscultation all lung sterling Abdomen: Soft, tenderness in the RLQ positive bowel sounds, no palpable masses appreciated on examination Extremities: Symmetric bilateral, bilateral lower extremities without erythema or edema patient moving all 4 extremities spontaneously. Neurologic: No focal deficits appreciated on examination. Face symmetric, muscle strength symmetric bilateral upper and lower extremities. Internal Medicine: Result - Labs CBC & Chem 7: 08/02/17 04:08 08/02/17 08:21 Labs: Short CBC 08/02/17 Range/Units 04:08 WBC 10.6 (4.3-11.1) K/mcL Hgb 8.5 L D (11.5-15.4) g/dL Hct 26.3 L (35.3-44.9) % Plt Count 315 (140-400) K/mcL Neutrophils # 7.7 (1.6-8.9) K/mcL BMP 08/02/17 08/02/17 00:04 04:08 Sodium 143 143 Potassium 5.0 3.9 Chloride 116 H 119 H Carbon Dioxide 9 L* 13 L BUN 16 13 Creatinine 1.11 1.04 Glucose 231 H 185 H Calcium 7.4 L 7.3 L Consult Discharge Plan - Plan Referrals: Zehra Jamison, ASSOCIATE STORE DIRECTOR [Primary Care Provider] - 08/07/17 9:30 am <Kalyan Galindo H - Last Filed: 08/02/17 12:52> Date of Encounter: 08/02/17 - Assessment and plan (1) 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 (2) Hyperkalemia Current Visit: No Status: Acute (3) Abdominal pain Current Visit: No Status: Acute (4) DKA (diabetic ketoacidoses) Current Visit: Yes Status: Acute Qualifiers: Diabetes mellitus type: type 1 Diabetes mellitus complication detail: without coma Qualified Code(s): E10.10 - Type 1 diabetes mellitus with ketoacidosis without coma (5) Metabolic acidosis Current Visit: No Status: Resolved - Time Spent With Patient Total time spent is greater than 50% in coordination of care (as documented) at patient's floor/unit and/or counseling patient: - Constitutional Vitals: Temp Pulse Resp BP Pulse Ox 98.4 F 99 18 109/72 97 08/02/17 06:38 08/02/17 06:38 08/02/17 06:38 08/02/17 06:38 08/02/17 09:03 Internal Medicine: Result - Labs CBC & Chem 7: 08/02/17 04:08 08/02/17 08:21 Labs: Short CBC 08/02/17 Range/Units 04:08 WBC 10.6 (4.3-11.1) K/mcL Hgb 8.5 L D (11.5-15.4) g/dL Hct 26.3 L (35.3-44.9) % Plt Count 315 (140-400) K/mcL Neutrophils # 7.7 (1.6-8.9) K/mcL BMP 08/02/17 08/02/17 08/02/17 00:04 04:08 08:21 Sodium 143 143 143 Potassium 5.0 3.9 3.2 L Chloride 116 H 119 H 118 H Carbon Dioxide 9 L* 13 L 19 L BUN 16 13 11 Creatinine 1.11 1.04 0.92 Glucose 231 H 185 H 131 H Calcium 7.4 L 7.3 L 7.3 L - Attending Attestation Severe DKA, unclear trigger, sooner possible pelvic inflammatory disease as a patient complains of tenderness in the right lower quadrant Test for chlamydia and gonococcus Start Rocephin and continue Flagyl day #2 Consider starting doxycycline Pelvic ultrasound I examined this patient and my medical decision-making was reviewed with the Resident Physician. I agree with the documented findings, disposition and treatment plan as described except to the extent set forth below.
[2017-08-02 09:12] LABS: BUN/Creatinine Ratio 12 (6-26); Blood Urea Nitrogen 11 mg/dL (6-20); Calcium 7.3 mg/dL (8.6-10.3); Carbon Dioxide 19 mEq/L (23-29); Chloride 118 mEq/L (98-107); Glucose 131 mg/dL (70-105); Lipase 9 Units/L (11-82); Osmolality,Calculated 297 (280-300); Potassium 3.2 mEq/L (3.5-5.1); Sodium 143 mEq/L (136-145); eGFR For African Americans > 60 (> 60); eGFR For Non-African Americans > 60 (> 60)
[2017-08-02] MEDS: *HR* Dextrose 50 % in Water (Syg) 50 ML SYRINGE IVP PRN ×2 (10:13→20:53)
[2017-08-02] MEDS: Insulin DETEMIR 100 UNIT/ML X5UNITS SQ SCH ×2 (12:25→21:06)
[2017-08-02] MEDS: MetroNIDAZOLE 500 MG/100 ML 500 MG/100 ML BAG IVPB SCH ×2 (12:26→20:00)
[2017-08-02] MEDS: cefTRIAXone 1,000 MG in Water for inj. (sterile) 20 ML 10 ML IVP SCH (12:26)
[2017-08-02 13:17] LABS: BUN/Creatinine Ratio 12 (6-26); Blood Urea Nitrogen 11 mg/dL (6-20); Calcium 7.2 mg/dL (8.6-10.3); Carbon Dioxide 18 mEq/L (23-29); Chloride 119 mEq/L (98-107); Glucose 120 mg/dL (70-105); Osmolality,Calculated 295 (280-300); Sodium 142 mEq/L (136-145); eGFR For African Americans > 60 (> 60); eGFR For Non-African Americans > 60 (> 60)
[2017-08-02] MEDS: Ondansetron 4 MG/2 ML VIAL IVP PRN (20:10)
[2017-08-02] MEDS: *HR* OxyCODONE Immed Rel 5 MG TABLET PO PRN (20:53)
[2017-08-03] MEDS: MetroNIDAZOLE 500 MG/100 ML 500 MG/100 ML BAG IVPB SCH ×3 (03:29→22:03)
[2017-08-03] MEDS: *HR* OxyCODONE Immed Rel 5 MG TABLET PO PRN ×5 (03:34→22:02)
[2017-08-03] MEDS: Ondansetron 4 MG/2 ML VIAL IVP PRN (03:59)
[2017-08-03] MEDS: *HR* Promethazine 25 MG/ML VIAL IVP PRN ×3 (04:43→22:06)
[2017-08-03] MEDS: 0.9 % Sodium Chloride 1,000 ML IVC SCH ×2 (05:05→18:35)
[2017-08-03] MEDS: Pantoprazole 40 MG VIAL IVP SCH (08:09)
[2017-08-03] MEDS: Insulin DETEMIR 100 UNIT/ML X5UNITS SQ SCH ×2 (08:09→22:03)
[2017-08-03 08:45] LABS: Basophils # 0.1 K/mcL (0.0-0.2); Basophils % 1.2 %; Eosinophils # 0.2 K/mcL (0.0-0.6); Eosinophils % 4.2 %; Hematocrit 30.5 % (35.3-44.9); Hemoglobin 9.6 g/dL (11.5-15.4); Immature Granulocytes % 0.2 % (0-4); Lymphocytes # 1.6 K/mcL (0.6-4.6); Lymphocytes % 37.1 %; Mean Corpuscular HGB Conc 31.5 g/dL (31.6-35.5); Mean Corpuscular Hemoglobin 29.8 pg (28.0-33.3); Mean Corpuscular Volume 94.7 fL (83.0-100.0); Mean Platelet Volume 9.8 fL (9.4-12.4); Monocytes # 0.3 K/mcL (0.0-1.3); Monocytes % 7.2 %; Neutrophils # 2.2 K/mcL (1.6-8.9); Platelet Count 234 K/mcL (140-400); Red Blood Count 3.22 M/mcL (3.82-4.97); Segmented Neutrophils % 50.1 %
[2017-08-03] MEDS ORDERED: Dextrose Gel 15 GM/37.5 ML TUBE PO PRN ×2 (08:49)
[2017-08-03] MEDS ORDERED: D5% in Water 1,000 ML IVC PRN (08:49)
[2017-08-03] MEDS ORDERED: *HR* Dextrose 50 % in Water (Syg) 50 ML SYRINGE IVP PRN (08:49)
[2017-08-03 08:58] LABS: BUN/Creatinine Ratio 7 (6-26); Blood Urea Nitrogen 5 mg/dL (6-20); Calcium 7.4 mg/dL (8.6-10.3); Carbon Dioxide 19 mEq/L (23-29); Chloride 117 mEq/L (98-107); Glucose 253 mg/dL (70-105); Osmolality,Calculated 296 (280-300); Sodium 140 mEq/L (136-145); eGFR For African Americans > 60 (> 60); eGFR For Non-African Americans > 60 (> 60)
[2017-08-03] MEDS ORDERED: Insulin LISPRO 300 UNITS/3 ML VIAL SQ SCH ×2 (09:00→11:30)
--- NOTE | 2017-08-03 09:56 | Internal Med Progress Note ---
<Ronni Martinez - Last Filed: 08/03/17 09:53> Date of Encounter: 08/03/17 Time of Encounter: 07:30 - Assessment and plan (1) DKA (diabetic ketoacidoses) Current Visit: Yes Status: Acute Assessment and plan: 31-year-old female admitted with diabetic ketoacidosis with glucose greater than 600, anion gap of 30, venous blood gas 6.98, PCO2 24, PO2 99, bicarbonate 6 - Patient started on diabetic ketoacidosis current closure of her anion gap - Hyperglycemia resolved - Acidosis improving, current bicarbonate 19 Plan: - Patient on Levemir 10 units twice a day - Low-dose sliding scale - Before meals at bedtime glucose checks - Continue to monitor daily. Qualifiers: Diabetes mellitus type: type 1 Diabetes mellitus complication detail: without coma Qualified Code(s): E10.10 - Type 1 diabetes mellitus with ketoacidosis without coma (2) Abdominal pain Current Visit: No Status: Acute Assessment and plan: Likely secondary to PID, also contributing factors of metabolic acidosis in the setting of DKA. - CT of the abdomen and pelvis demonstrated decompressed colon with mild diffuse circumferential wall thickening- may represent colitis, no other acute findings. - Pelvic ultrasound demonstrates hyperendemic myometrium, nonspecific considerations for pelvic inflammatory disease. Clinical exam and imaging signs concerning for PID. - Patient denies diarrhea, fevers chills diaphoresis. Clinical picture not concerning for colitis. Continue antibiotics as above. (3) Hyperkalemia Current Visit: No Status: Acute Assessment and plan: Resolved. Patient presented with hyperkalemia and a set of diabetic ketoacidosis this has since resolved with IV insulin and glucose treatment of DKA. 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 - Chronic medical problem. (5) Metabolic acidosis Current Visit: No Status: Resolved Assessment and plan: Improving, secondary to diabetic ketoacidosis. (6) Pelvic inflammatory disease (PID) Current Visit: Yes Status: Acute Assessment and plan: CT scan demonstrates enlarged uterus, patient underwent transvaginal ultrasound with Doppler demonstrating concerning findings for pelvic inflammatory disease. - PCR for gonorrhea and chlamydia are no detection - Ceftriaxone and metronidazole day 2 - Start doxycycline 100 mg IV twice a day - Time Spent With Patient Total time spent is greater than 50% in coordination of care (as documented) at patient's floor/unit and/or counseling patient: - Subjective Interval history: Miss Sierra 31-year-old female seen and evaluated patient bedside this morning. She is alert awake interactive complains of some mild right lower abdominal pain, no fevers, chills, diaphoresis. She has started tolerating oral intake, continues to have some mild nausea but feels improved compared to yesterday. She has had bowel movements and no other current complaints. - Constitutional Vitals: Temp Pulse Resp BP Pulse Ox 97.8 F 92 21 141/81 99 08/03/17 06:58 08/03/17 06:58 08/03/17 06:58 08/03/17 06:58 08/03/17 06:58 General appearance: Present: cooperative, A&O X 3, severe distress, answers questions appropriately Exam: General: Patient alert, awake, oriented 3, interactive, mild distress HEENT: Normocephalic, atraumatic, pupils equal reactive to light, poor dentition neck supple trachea midline no palpable lymphadenopathy, no thyromegaly. Chest: Symmetric bilateral correlating with respiratory effort, effort nonlabored. Cardiac: Irregular rhythm with appropriate rate, positive S2, S1, Radial pulses 2+ bilateral, posterior tibial and dorsal pedal pulses 2+ bilateral. Respiratory: Clear to auscultation all lung sterling Abdomen: Soft, tenderness in the RLQ and suprapubic region,positive bowel sounds , no palpable masses appreciated on examination Extremities: Symmetric bilateral, bilateral lower extremities without erythema or edema patient moving all 4 extremities spontaneously. Neurologic: No focal deficits appreciated on examination. Face symmetric, muscle strength symmetric bilateral upper and lower extremities. Internal Medicine: Result - Labs CBC & Chem 7: 08/03/17 08:18 08/03/17 08:18 Labs: Short CBC 08/03/17 Range/Units 08:18 WBC 4.3 D (4.3-11.1) K/mcL Hgb 9.6 L (11.5-15.4) g/dL Hct 30.5 L (35.3-44.9) % Plt Count 234 (140-400) K/mcL Neutrophils # 2.2 (1.6-8.9) K/mcL BMP 08/02/17 08/03/17 12:39 08:18 Sodium 142 140 Potassium 4.0 4.0 Chloride 119 H 117 H Carbon Dioxide 18 L 19 L BUN 11 5 L Creatinine 0.92 0.75 Glucose 120 H 253 H Calcium 7.2 L 7.4 L - Impressions Impressions Abdomen/Pelvis/Transvag US 08/02/17 14:30 IMPRESSION: Hyperemic myometrium is demonstrated, nonspecific, for which some considerations could include pelvic inflammatory disease or sequela of recent trauma or intervention. Endometrial stripe is within normal limits in thickness for patient age. Unremarkable appearance of ovaries for patient age. Small amount of free pelvic fluid. 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 (2) Hyperkalemia Current Visit: No Status: Acute (3) Abdominal pain Current Visit: No Status: Acute (4) DKA (diabetic ketoacidoses) Current Visit: Yes Status: Acute Qualifiers: Diabetes mellitus type: type 1 Diabetes mellitus complication detail: without coma Qualified Code(s): E10.10 - Type 1 diabetes mellitus with ketoacidosis without coma (5) Metabolic acidosis Current Visit: No Status: Resolved (6) Pelvic inflammatory disease (PID) Current Visit: Yes Status: Acute - Time Spent With Patient Total time spent is greater than 50% in coordination of care (as documented) at patient's floor/unit and/or counseling patient: - Constitutional Vitals: Temp Pulse Resp BP Pulse Ox 97.7 F 95 20 130/87 98 08/03/17 15:22 08/03/17 15:22 08/03/17 15:22 08/03/17 15:22 08/03/17 15:22 Internal Medicine: Result - Labs CBC & Chem 7: 08/03/17 08:18 08/03/17 08:18 Labs: Short CBC 08/03/17 Range/Units 08:18 WBC 4.3 D (4.3-11.1) K/mcL Hgb 9.6 L (11.5-15.4) g/dL Hct 30.5 L (35.3-44.9) % Plt Count 234 (140-400) K/mcL Neutrophils # 2.2 (1.6-8.9) K/mcL BMP 08/03/17 08:18 Sodium 140 Potassium 4.0 Chloride 117 H Carbon Dioxide 19 L BUN 5 L Creatinine 0.75 Glucose 253 H Calcium 7.4 L - Impressions Impressions Abdomen/Pelvis/Transvag US 08/02/17 14:30 IMPRESSION: Hyperemic myometrium is demonstrated, nonspecific, for which some considerations could include pelvic inflammatory disease or sequela of recent trauma or intervention. Endometrial stripe is within normal limits in thickness for patient age. Unremarkable appearance of ovaries for patient age. Small amount of free pelvic fluid. D/ / Cale Cates MD / Cale Cates MD Interpreting Provider: Cale Cates MD - Attending Attestation Severe DKA, unclear trigger, possible pelvic inflammatory disease complains of tenderness in the right lower quadrant Test for chlamydia and gonococcus were negative COntinue Rocephin day #2 and Flagyl day #3 Consider discontiuing doxycycline Pelvic ultrasound showed: Hyperemic myometrium is demonstrated, nonspecific, for which some considerations could include pelvic inflammatory disease or sequela of recent trauma or intervention. I examined this patient and my medical decision-making was reviewed with the Resident Physician. I agree with the documented findings, disposition and treatment plan as described except to the extent set forth below.
[2017-08-03] MEDS: OXYCODONE Oral CONC 10 MG/0.5 ML ORAL.SYG SL PRN (10:31)
[2017-08-03] MEDS: cefTRIAXone 1,000 MG in Water for inj. (sterile) 20 ML 10 ML IVP SCH (12:30)
[2017-08-03] MEDS: Insulin LISPRO 300 UNITS/3 ML VIAL SQ SCH ×3 (12:31→21:57)
[2017-08-03] MEDS: Doxycycline 100 MG in 0.9 % Sodium Chloride Mini Bag 100 ML IVPB SCH (16:26)
--- NOTE | 2017-08-03 17:00 | Electrocardiograph Report ---
[address] [place], [place] [address] Test Date: 2017-08-01 Pat Name: Hilton Sierra Department: [id number] Room: 2A Gender: F Bilingual Executive Assistant: MIREILLE : 1985 Requested By: Jax Mae Order Number: [id number] Reading MD: Jax Palma Measurements Intervals [place] Rate: 121 P: 66 AK: 137 QRS: 102 QRSD: 87 T: 46 QT: 301 QTc: 373 Interpretive Statements SINUS TACHYCARDIA Electronically Signed On 08-03-2017 16:59:25 EDT by Jax Palma
[2017-08-04] MEDS: MetroNIDAZOLE 500 MG/100 ML 500 MG/100 ML BAG IVPB SCH ×3 (04:54→20:30)
[2017-08-04] MEDS: *HR* Promethazine 25 MG/ML VIAL IVP PRN ×3 (04:58→17:41)
[2017-08-04] MEDS: Doxycycline 100 MG in 0.9 % Sodium Chloride Mini Bag 100 ML IVPB SCH (06:21)
[2017-08-04 07:25] LABS: Basophils % 0.9 %; Eosinophils # 0.2 K/mcL (0.0-0.6); Eosinophils % 4.1 %; Hematocrit 29.3 % (35.3-44.9); Hemoglobin 9.6 g/dL (11.5-15.4); Immature Granulocytes % 1.4 % (0-4); Lymphocytes # 1.3 K/mcL (0.6-4.6); Lymphocytes % 28.9 %; Mean Corpuscular HGB Conc 32.8 g/dL (31.6-35.5); Mean Corpuscular Hemoglobin 30.2 pg (28.0-33.3); Mean Corpuscular Volume 92.1 fL (83.0-100.0); Mean Platelet Volume 10.6 fL (9.4-12.4); Monocytes # 0.4 K/mcL (0.0-1.3); Monocytes % 9.1 %; Neutrophils # 2.5 K/mcL (1.6-8.9); Platelet Count 235 K/mcL (140-400); Red Blood Count 3.18 M/mcL (3.82-4.97); Red Cell Distribution Width 15.5 % (11.5-14.5); Segmented Neutrophils % 55.6 %
[2017-08-04 07:36] LABS: Alanine Aminotransferase 21 Units/L (7-52); Albumin 2.6 g/dL (3.5-5.7); Albumin/Globulin Ratio 1.1 (1.1-2.2); Alkaline Phosphatase 159 Units/L (34-104); Aspartate Amino Transferase 59 Units/L (13-39); BUN/Creatinine Ratio 5 (6-26); Bilirubin,Total 0.3 mg/dL (0.3-1.0); Blood Urea Nitrogen 3 mg/dL (6-20); Carbon Dioxide 18 mEq/L (23-29); Chloride 115 mEq/L (98-107); Globulin 2.4 g/dL (2.4-3.5); Glucose 80 mg/dL (70-105); Osmolality,Calculated 288 (280-300); Potassium 4.3 mEq/L (3.5-5.1); Sodium 141 mEq/L (136-145); eGFR For African Americans > 60 (> 60); eGFR For Non-African Americans > 60 (> 60)
[2017-08-04] MEDS: Insulin LISPRO 300 UNITS/3 ML VIAL SQ SCH ×4 (07:47→21:48)
--- NOTE | 2017-08-04 08:06 | Discharge Summary ---
Date of Encounter: 08/04/17 Time of Encounter: 08:03 - Discharge Diagnosis (1) DKA (diabetic ketoacidoses) Status: Acute Qualifiers: Diabetes mellitus type: type 1 Diabetes mellitus complication detail: without coma Qualified Code(s): E10.10 - Type 1 diabetes mellitus with ketoacidosis without coma (2) Pelvic inflammatory disease (PID) Status: Acute (3) Abdominal pain Status: Acute (4) Hyperkalemia Status: Acute (5) Gastroparesis diabeticorum Status: Chronic (6) Metabolic acidosis Status: Resolved Hospital course: Ms. Sierra is a 31 year old female - Time Spent with Patient Total time spent providing and/or coordinating discharge services: - Discharge Medications Home Medications: Metoprolol [Lopressor] 25 mg PO BID #60 tablet 12/18/16 [Rx] Sodium Bicarbonate 650 mg PO DAILY 03/09/17 [History] Insulin ASPART [NovoLOG] 10 unit SQ TIDWM PRN #5 vial 03/12/17 [Rx] Insulin Glargine,Hum.rec.anlog [Lantus Solostar] 10 - 20 unit SQ HS 04/23/17 [ History] Lisinopril/Hydrochlorothiazide [Zestoretic 20-12.5 mg Tablet] 1 tab PO DAILY [History] Allergies/Adverse Reactions: 3 Allergy/AdvReac Type Severity Reaction Status Date / Time hydrocodone Allergy Hives Verified 12/13/16 12:28 Date of admission: 08/01/17 20:26 Primary care physician: Zehra Jamison Consults: 08/01/17 21:28 Consult to Nutrition [CONS] Routine Comment: Consulting Provider: NUTRITION Reason for Dietary Consult: MST Score Discharging clinician: Ronni Martinez Anticipated date of discharge: 08/04/17 - Constitutional Vitals: Temp Pulse Resp BP Pulse Ox 98.1 F 96 17 145/89 97 08/04/17 07:01 08/04/17 07:01 08/04/17 07:01 08/04/17 07:01 08/04/17 07:01 General appearance: Present: cooperative, A&O X 3, severe distress, answers questions appropriately - Patient Status Disposition: Home, Self-Care Condition: Critical Overall status at discharge: patient is progressing back to baseline - Discharge Instructions Instructions: Diabetes Mellitus Type 2 in Adults (DC) Follow Up With: Zehra Jamison CNP [Primary Care Provider] - 08/07/17 9:30 am - Diet and Activity Activity: increase activity as tolerated Diet: advance to your usual diet, diabetic diet
[2017-08-04] MEDS ORDERED: Pantoprazole 40 MG VIAL IVP ONE (08:27)
[2017-08-04] MEDS: *HR* OxyCODONE Immed Rel 5 MG TABLET PO PRN ×3 (08:37→21:46)
[2017-08-04] MEDS: Insulin DETEMIR 100 UNIT/ML X5UNITS SQ SCH ×2 (08:39→21:51)
--- NOTE | 2017-08-04 11:04 | Internal Med Progress Note ---
<Ronni Martinez - Last Filed: 08/04/17 11:01> Date of Encounter: 08/04/17 Time of Encounter: 07:45 - Assessment and plan (1) DKA (diabetic ketoacidoses) Current Visit: Yes Status: Acute Assessment and plan: 31-year-old female admitted with diabetic ketoacidosis with glucose greater than 600, anion gap of 30, venous blood gas 6.98, PCO2 24, PO2 99, bicarbonate 6 - Patient started on diabetic ketoacidosis current closure of her anion gap - Hyperglycemia resolved - Acidosis improving, current bicarbonate 19 Plan: - Patient on Levemir 10 units twice a day - Low-dose sliding scale - Before meals at bedtime glucose checks - Continue to monitor daily. Qualifiers: Diabetes mellitus type: type 1 Diabetes mellitus complication detail: without coma Qualified Code(s): E10.10 - Type 1 diabetes mellitus with ketoacidosis without coma (2) Abdominal pain Current Visit: No Status: Acute Assessment and plan: Likely secondary to PID, also contributing factors of metabolic acidosis in the setting of DKA. - CT of the abdomen and pelvis demonstrated decompressed colon with mild diffuse circumferential wall thickening- may represent colitis, no other acute findings. - Pelvic ultrasound demonstrates hyperendemic myometrium, nonspecific considerations for pelvic inflammatory disease. Clinical exam and imaging signs concerning for PID. - Patient denies diarrhea, fevers chills diaphoresis. Clinical picture not concerning for colitis. 08/04: Stable clinical picture from yesterday. No acute changes overnight. Continue antibiotics as above. (3) Hyperkalemia Current Visit: No Status: Acute Assessment and plan: Resolved. Patient presented with hyperkalemia and a set of diabetic ketoacidosis this has since resolved with IV insulin and glucose treatment of DKA. 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 - Chronic medical problem. (5) Pelvic inflammatory disease (PID) Current Visit: Yes Status: Acute Assessment and plan: CT scan demonstrates enlarged uterus, patient underwent transvaginal ultrasound with Doppler demonstrating concerning findings for pelvic inflammatory disease. - PCR for gonorrhea and chlamydia are no detection - Ceftriaxone and metronidazole day 3 - Time Spent With Patient Total time spent is greater than 50% in coordination of care (as documented) at patient's floor/unit and/or counseling patient: - Subjective Interval history: Miss Mariela 31-year-old female seen and evaluated patient bedside this morning. She is alert awake interactive complains of some mild right lower abdominal pain, no fevers, chills, diaphoresis. She states the pain is no better than yesterday. She is tolerating oral intake with liquids at this time. She had bowel movements yesterday but none this morning as far. She has been having flatulence and passing urine appropriately. She denies any other complaints at this time. - Constitutional Vitals: Temp Pulse Resp BP Pulse Ox 98.5 F 93 17 130/85 97 08/04/17 10:53 08/04/17 10:53 08/04/17 10:53 08/04/17 10:53 08/04/17 10:53 General appearance: Present: cooperative, A&O X 3, severe distress, answers questions appropriately Exam: General: Patient alert, awake, oriented 3, interactive, mild distress HEENT: Normocephalic, atraumatic, pupils equal reactive to light, poor dentition neck supple trachea midline no palpable lymphadenopathy, no thyromegaly. Chest: Symmetric bilateral correlating with respiratory effort, effort nonlabored. Cardiac: Irregular rhythm with appropriate rate, positive S2, S1, Radial pulses 2+ bilateral, posterior tibial and dorsal pedal pulses 2+ bilateral. Respiratory: Clear to auscultation all lung sterling Abdomen: Mild distention, tympanic, tenderness in the RLQ and suprapubic region, positive bowel sounds, no palpable masses appreciated on examination Extremities: Symmetric bilateral, bilateral lower extremities without erythema or edema patient moving all 4 extremities spontaneously. Neurologic: No focal deficits appreciated on examination. Face symmetric, muscle strength symmetric bilateral upper and lower extremities. Internal Medicine: Result - Labs CBC & Chem 7: 08/04/17 06:58 08/04/17 06:58 Labs: Short CBC 08/04/17 Range/Units 06:58 WBC 4.4 (4.3-11.1) K/mcL Hgb 9.6 L (11.5-15.4) g/dL Hct 29.3 L (35.3-44.9) % Plt Count 235 (140-400) K/mcL Neutrophils # 2.5 (1.6-8.9) K/mcL BMP 08/04/17 06:58 Sodium 141 Potassium 4.3 Chloride 115 H Carbon Dioxide 18 L BUN 3 L Creatinine 0.65 Glucose 80 Calcium 8.0 L Liver Function 08/04/17 Range/Units 06:58 Total Bilirubin 0.3 (0.3-1.0) mg/dL AST 59 H (13-39) Units/L ALT 21 (7-52) Units/L Alkaline Phosphatase 159 H (34-104) Units/L Albumin 2.6 L (3.5-5.7) g/dL Consult Discharge Plan - Plan Instructions: Diabetes Mellitus Type 2 in Adults (DC) Referrals: Zehra Jamison CNP [Primary Care Provider] - 08/07/17 9:30 am <Kalyan Galindo H - Last Filed: 08/04/17 13:40> Date of Encounter: 08/04/17 - Assessment and plan (1) 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 (2) Hyperkalemia Current Visit: No Status: Acute (3) Abdominal pain Current Visit: No Status: Acute (4) DKA (diabetic ketoacidoses) Current Visit: Yes Status: Acute Qualifiers: Diabetes mellitus type: type 1 Diabetes mellitus complication detail: without coma Qualified Code(s): E10.10 - Type 1 diabetes mellitus with ketoacidosis without coma (5) Pelvic inflammatory disease (PID) Current Visit: Yes Status: Acute - Time Spent With Patient Total time spent is greater than 50% in coordination of care (as documented) at patient's floor/unit and/or counseling patient: - Constitutional Vitals: Temp Pulse Resp BP Pulse Ox 98.5 F 93 17 130/85 97 08/04/17 10:53 08/04/17 10:53 08/04/17 10:53 08/04/17 10:53 08/04/17 10:53 Internal Medicine: Result - Labs CBC & Chem 7: 08/04/17 06:58 08/04/17 06:58 Labs: Short CBC 08/04/17 Range/Units 06:58 WBC 4.4 (4.3-11.1) K/mcL Hgb 9.6 L (11.5-15.4) g/dL Hct 29.3 L (35.3-44.9) % Plt Count 235 (140-400) K/mcL Neutrophils # 2.5 (1.6-8.9) K/mcL BMP 08/04/17 06:58 Sodium 141 Potassium 4.3 Chloride 115 H Carbon Dioxide 18 L BUN 3 L Creatinine 0.65 Glucose 80 Calcium 8.0 L Liver Function 08/04/17 Range/Units 06:58 Total Bilirubin 0.3 (0.3-1.0) mg/dL AST 59 H (13-39) Units/L ALT 21 (7-52) Units/L Alkaline Phosphatase 159 H (34-104) Units/L Albumin 2.6 L (3.5-5.7) g/dL - Attending Attestation Severe DKA, 2ry to possible pelvic inflammatory disease complains of tenderness in the right lower quadrant Test for chlamydia and gonococcus were negative Continue Rocephin day #2 and Flagyl day #4 Discontinue doxycycline Pelvic ultrasound showed: Hyperemic myometrium is demonstrated, nonspecific, for which some considerations could include pelvic inflammatory disease or sequela of recent trauma or intervention. I examined this patient and my medical decision-making was reviewed with the Resident Physician. I agree with the documented findings, disposition and treatment plan as described except to the extent set forth below.
[2017-08-04] MEDS: cefTRIAXone 1,000 MG in Water for inj. (sterile) 20 ML 10 ML IVP SCH (11:34)
[2017-08-05] MEDS: *HR* OxyCODONE Immed Rel 5 MG TABLET PO PRN ×3 (04:13→17:10)
[2017-08-05] MEDS: MetroNIDAZOLE 500 MG/100 ML 500 MG/100 ML BAG IVPB SCH (04:14)
[2017-08-05 05:51] LABS: Mean Platelet Volume 10.1 fL (9.4-12.4)
[2017-08-05 05:52] LABS: Basophils % 1.6 %; Eosinophils # 0.1 K/mcL (0.0-0.6); Eosinophils % 3.2 %; Hematocrit 31.8 % (35.3-44.9); Hemoglobin 10.3 g/dL (11.5-15.4); Immature Granulocytes % 0.5 % (0-4); Lymphocytes % 53.2 %; Mean Corpuscular HGB Conc 32.4 g/dL (31.6-35.5); Mean Corpuscular Hemoglobin 29.7 pg (28.0-33.3); Mean Corpuscular Volume 91.6 fL (83.0-100.0); Monocytes # 0.3 K/mcL (0.0-1.3); Monocytes % 15.3 %; Neutrophils # 0.5 K/mcL (1.6-8.9); Platelet Count 222 K/mcL (140-400); Red Blood Count 3.47 M/mcL (3.82-4.97); Red Cell Distribution Width 14.8 % (11.5-14.5); Segmented Neutrophils % 26.2 %
[2017-08-05 06:11] LABS: Alanine Aminotransferase 135 Units/L (7-52); Albumin 2.7 g/dL (3.5-5.7); Albumin/Globulin Ratio 1.1 (1.1-2.2); Alkaline Phosphatase 316 Units/L (34-104); Aspartate Amino Transferase 526 Units/L (13-39); BUN/Creatinine Ratio 8 (6-26); Bilirubin,Total 0.5 mg/dL (0.3-1.0); Blood Urea Nitrogen 5 mg/dL (6-20); Calcium 8.2 mg/dL (8.6-10.3); Carbon Dioxide 23 mEq/L (23-29); Chloride 109 mEq/L (98-107); Globulin 2.5 g/dL (2.4-3.5); Glucose 322 mg/dL (70-105); Osmolality,Calculated 284 (280-300); Potassium 5.2 mEq/L (3.5-5.1); Sodium 132 mEq/L (136-145); Total Protein 5.2 g/dL (6.4-8.9); eGFR For African Americans > 60 (> 60); eGFR For Non-African Americans > 60 (> 60)
[2017-08-05 06:30] LABS: Platelet Estimate Normal (Normal)
[2017-08-05] MEDS: *HR* Promethazine 25 MG/ML VIAL IVP PRN ×3 (06:54→20:21)
--- NOTE | 2017-08-05 07:39 | Internal Med Progress Note ---
<Ronni Martinez - Last Filed: 08/05/17 12:20> Date of Encounter: 08/05/17 Time of Encounter: 07:36 - Assessment and plan (1) DKA (diabetic ketoacidoses) Current Visit: Yes Status: Acute Assessment and plan: 31-year-old female admitted with diabetic ketoacidosis with glucose greater than 600, anion gap of 30, venous blood gas 6.98, PCO2 24, PO2 99, bicarbonate 6 - Patient started on diabetic ketoacidosis current closure of her anion gap - Hyperglycemia resolved - Acidosis improving, current bicarbonate 19 08/05: Patient's glucoses have been very labile with Levemir and subcutaneous insulin. Anion gap is still closed, Plan: - Discontinue Levemir as patient is nothing by mouth today - Low-dose sliding scale - Before meals at bedtime glucose checks - Continue to monitor daily. Qualifiers: Diabetes mellitus type: type 1 Diabetes mellitus complication detail: without coma Qualified Code(s): E10.10 - Type 1 diabetes mellitus with ketoacidosis without coma (2) Pelvic inflammatory disease (PID) Current Visit: Yes Status: Acute Assessment and plan: CT scan demonstrates enlarged uterus, patient underwent transvaginal ultrasound with Doppler demonstrating concerning findings for pelvic inflammatory disease. - PCR for gonorrhea and chlamydia are no detection - Ceftriaxone day 3 - Metronidazole discontinued given neutropenia - Cefotan 2 g IV every 8 hours started (3) Abdominal pain Current Visit: No Status: Acute Assessment and plan: Likely secondary to PID, also contributing factors of metabolic acidosis in the setting of DKA. - CT of the abdomen and pelvis demonstrated decompressed colon with mild diffuse circumferential wall thickening- may represent colitis, no other acute findings. - Pelvic ultrasound demonstrates hyperendemic myometrium, nonspecific considerations for pelvic inflammatory disease. Clinical exam and imaging signs concerning for PID. - Patient denies diarrhea, fevers chills diaphoresis. Clinical picture not concerning for colitis. 08/04: Stable clinical picture from yesterday. No acute changes overnight. 08/05: Distended abdomen with diffuse tenderness, elevation alkaline phosphate, AST 529, ALC 135, history of cholecystectomy. Potential pancreatitis. - Lipase added to morning labs results pending. - Stat abdominal and pelvis CT with oral and IV contrast - Nothing by mouth diet - Consult called to PRO SHOP ATTENDANT (4) Hyperkalemia Current Visit: No Status: Acute Assessment and plan: 08/05: Mild hyperkalemia 5.2 this morning 08/05/2017 lites in the setting of hyperglycemia. Patient is on subcutaneous insulin will continue to monitor throughout the day. Patient presented with hyperkalemia and a set of diabetic ketoacidosis this has since resolved with IV insulin and glucose treatment of DKA. 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 - Chronic medical problem. (6) DVT prophylaxis Current Visit: Yes Status: Acute Assessment and plan: SCDs (7) Neutropenia Current Visit: Yes Status: Acute Assessment and plan: Suspected secondary to Flagyl. This is discontinued, cefepime started - Continue to monitor - Time Spent With Patient Total time spent is greater than 50% in coordination of care (as documented) at patient's floor/unit and/or counseling patient: - Subjective Interval history: Miss Sierra 31-year-old female seen and evaluated patient bedside this morning. Continues to have suprapubic abdominal pain, right upper quadrant pain complains of significant tenderness with palpation. She states her abdomen is more distended than was previously and continues to have nausea. No fevers no chills no sweating. Tolerate some liquid oral intake yesterday but no advancement in diet. Passing gas but no bowel movements. - Constitutional Vitals: Temp Pulse Resp BP Pulse Ox 97.9 F 99 17 110/71 96 08/05/17 07:05 08/05/17 07:05 08/05/17 07:05 08/05/17 07:05 08/05/17 07:05 General appearance: Present: cooperative, A&O X 3, severe distress, answers questions appropriately Exam: General: Patient alert, awake, oriented 3, interactive, in no acute distress HEENT: Normocephalic, atraumatic, pupils equal reactive to light, moist mucous membranes neck supple trachea midline no palpable lymphadenopathy, no thyromegaly. Chest: Symmetric bilateral correlating with respiratory effort, effort nonlabored. Cardiac: Regular rate and rhythm, positive S1 and S2. no bruits appreciated bilateral carotids, Radial pulses 2+ bilateral, posterior tibial and dorsal pedal pulses 2+ bilateral. Respiratory: Clear to auscultation all lung sterling Abdomen: Distended, tenderness to palpation more so right upper quadrant and suprapubic, hypoactive bowel sounds no palpable masses appreciated on examination Extremities: Symmetric bilateral, bilateral lower extremities without erythema or edema patient moving all 4 extremities spontaneously. Neurologic: No focal deficits appreciated on examination. Face symmetric, muscle strength symmetric bilateral upper and lower extremities. Internal Medicine: Result - Labs CBC & Chem 7: 08/05/17 05:33 08/05/17 05:33 Labs: Short CBC 08/05/17 Range/Units 05:33 WBC 1.9 L D (4.3-11.1) K/mcL Hgb 10.3 L (11.5-15.4) g/dL Hct 31.8 L (35.3-44.9) % Plt Count 222 (140-400) K/mcL Neutrophils # 0.5 L (1.6-8.9) K/mcL BMP 08/04/17 08/05/17 06:58 05:33 Sodium 141 132 L D Potassium 4.3 5.2 H Chloride 115 H 109 H Carbon Dioxide 18 L 23 BUN 3 L 5 L Creatinine 0.65 0.66 Glucose 80 322 H Calcium 8.0 L 8.2 L Liver Function 08/04/17 08/05/17 Range/Units 06:58 05:33 Total Bilirubin 0.3 0.5 (0.3-1.0) mg/dL AST 59 H 526 H (13-39) Units/L ALT 21 135 H (7-52) Units/L Alkaline Phosphatase 159 H 316 H (34-104) Units/L Albumin 2.6 L 2.7 L (3.5-5.7) g/dL - VTE Documentation of Mechanical Device: Intermittent pneumatic compression device Consult Discharge Plan - Plan Instructions: Diabetes Mellitus Type 2 in Adults (DC) Referrals: Zehra Jamison CNP [Primary Care Provider] - 08/07/17 9:30 am <Kalyan Galindo H - Last Filed: 08/05/17 16:23> Date of Encounter: 08/05/17 - Assessment and plan (1) 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 (2) Hyperkalemia Current Visit: No Status: Acute (3) Abdominal pain Current Visit: No Status: Acute (4) DKA (diabetic ketoacidoses) Current Visit: Yes Status: Acute Qualifiers: Diabetes mellitus type: type 1 Diabetes mellitus complication detail: without coma Qualified Code(s): E10.10 - Type 1 diabetes mellitus with ketoacidosis without coma (5) Pelvic inflammatory disease (PID) Current Visit: Yes Status: Acute (6) DVT prophylaxis Current Visit: Yes Status: Acute (7) Neutropenia Current Visit: Yes Status: Acute - Time Spent With Patient Total time spent is greater than 50% in coordination of care (as documented) at patient's floor/unit and/or counseling patient: - Constitutional Vitals: Temp Pulse Resp BP Pulse Ox 97.5 F L 95 17 129/84 97 08/05/17 15:30 08/05/17 15:30 08/05/17 15:30 08/05/17 15:30 08/05/17 15:30 Internal Medicine: Result - Labs CBC & Chem 7: 08/05/17 05:33 08/05/17 05:33 Labs: Short CBC 08/05/17 Range/Units 05:33 WBC 1.9 L D (4.3-11.1) K/mcL Hgb 10.3 L (11.5-15.4) g/dL Hct 31.8 L (35.3-44.9) % Plt Count 222 (140-400) K/mcL Neutrophils # 0.5 L (1.6-8.9) K/mcL BMP 08/05/17 05:33 Sodium 132 L D Potassium 5.2 H Chloride 109 H Carbon Dioxide 23 BUN 5 L Creatinine 0.66 Glucose 322 H Calcium 8.2 L Liver Function 08/05/17 Range/Units 05:33 Total Bilirubin 0.5 (0.3-1.0) mg/dL AST 526 H (13-39) Units/L ALT 135 H (7-52) Units/L Alkaline Phosphatase 316 H (34-104) Units/L Albumin 2.7 L (3.5-5.7) g/dL - Impressions Impressions Abdomen/Pelvis CT 08/05/17 10:45 IMPRESSION: 1. New, indeterminate, intrahepatic biliary distention without clear obstructive cause. Correlate ERCP or MRCP as warranted. 2. Fluid within the endometrial and endocervical canal with edematous appearance to the myometrium. Correlate clinical evidence to suggest pelvic inflammatory disease. 3. Nonspecific bladder wall thickening. Correlate urinalysis. D/ / 08/05/2017 11:26:50 Perez Mcintyre MD / sydnie Interpreting Provider: Perez Mcintyre MD - Attending Attestation Severe DKA, 2ry to pelvic inflammatory disease severe neutropenia/neutropenic fever complains of tenderness in the right lower quadrant Tests for chlamydia and gonococcus were negative start merrem transfer to [facility] under the care of Dr Yañez Pelvic ultrasound showed: Hyperemic myometrium is demonstrated, nonspecific, for which some considerations could include pelvic inflammatory disease or sequela of recent trauma or intervention. time spent: 40 min I examined this patient and my medical decision-making was reviewed with the Resident Physician. I agree with the documented findings, disposition and treatment plan as described except to the extent set forth below.
[2017-08-05] MEDS ORDERED: Isovue-370 500 ML INFUS..BTL IV ONE (07:54)
[2017-08-05] MEDS ORDERED: Cefepime HCl 2,000 MG in Water for inj. (sterile) 20 ML 20 ML IVP SCH (08:00)
[2017-08-05] MEDS ORDERED: Cefepime HCl 2,000 MG in D5% in Water (Mini-Bag+) 100 ML IVPB SCH (08:00)
[2017-08-05] MEDS ORDERED: 0.9 % Sodium Chloride 1,000 ML IVC SCH (08:00)
[2017-08-05] MEDS: Insulin LISPRO 300 UNITS/3 ML VIAL SQ SCH ×3 (08:07→16:48)
[2017-08-05 08:12] LABS: Lipase 13 Units/L (11-82)
[2017-08-05 08:27] LABS: Magnesium 1.7 mg/dL (1.6-2.6); Phosphorous 2.7 mg/dL (2.7-4.5)
[2017-08-05] MEDS ORDERED: Clindamycin 900 MG/50 ML 900 MG/50 ML IV.SOLN IVPB SCH (09:00)
[2017-08-05] MEDS ORDERED: Fluconazole 400 MG/200 ML 400 MG/200 ML BAG IVPB ONE (09:10)
[2017-08-05] MEDS: Insulin DETEMIR 100 UNIT/ML X5UNITS SQ SCH ×2 (11:15→20:18)
--- NOTE | 2017-08-05 12:56 | OB/GYN Consult Note ---
Date of Encounter: 08/05/17 Time of Encounter: 13:01 Assessment and Plan (1) DKA (diabetic ketoacidoses) Current Visit: Yes Status: Acute Prob list: 31 y/o DKA, Type 1 DM possible PID Plan: I gave my recommendations to the team as follows. 1. With her labs worsening eg WBC 1, sugars >300, liver enzymes in the 500's, she needs transfer to ICU or preferably transfered to [facility]. 2. She may have had PID and that could be what sent her into DKA though at this point, it is unclear. Her cultures have returned negative. The U/S does suggest uterine inflammation. However, it was not pelvic pain that brought her into the hospital but her uncontrolled sugars. Even after talking to her and examining her, the pain that she is reporting is on the right upper quadrant. She denies any book shelver symptoms. I have advised starting broad spectrum antibiotics eg Zosyn or even Meropenem. 3. There is no further book shelver intervention needed at this time aside from medical therapy and management of her DKA. I'm available if needed throughout the day. Qualifiers: Diabetes mellitus type: type 1 Diabetes mellitus complication detail: without coma Qualified Code(s): E10.10 - Type 1 diabetes mellitus with ketoacidosis without coma History of Present Illness Consult date: 08/05/17 Reason for consult: pelvic infection History of present illness: 31 y/o with LMP 2 weeks ago presented to the hospital for control of her sugars on 08/01. She reports that shortly after she arrived, she started having abdominal pain with vomiting. At that time, she did not report vaginal bleeding , itching or burning associated with foul discharge or other vaginal symptoms. Labs were drawn and it showed that she was in DKA. She was admitted. She had a TVUS on 08/02 that showed possible inflammation. I was consulted because her labs are worsening and the repeat CT on 08/05 still shows the uterine inflammation. Past Med Surg Social Fam HX - Past Medical History Medical history: diabetes, GERD, glaucoma, hyperlipidemia, arthritis, hypertension, liver disease, osteoporosis, cirrhosis Psychiatric history: anxiety - Past Surgical History Surgical History: appendectomy, , cholecystectomy, sinus surgery, other - Social History Smoking Status: Never smoker Smokeless Tobacco Status: No Alcohol use: none Drug use: cocaine - Family History Grandmother Family Member Ethnicity: Non- Living Status: Still Living Hx Family Cardiac Disorders: No Hx Family Respiratory Disorders: No Hx Family Cancer: No Hx Family GI Disorders: No Hx Family Endocrine Disorder: Yes (type 2 diabetes) Hx Family Neuromuscular Disorders: No Hx Family Neurologic Disorders: Yes (stroke) Hx Family HEENT Disorders: No Hx Family Autoimmune Disorders: No Medications and Allergies Metoprolol [Lopressor] 25 mg PO BID #60 tablet 12/18/16 [Rx] Sodium Bicarbonate 650 mg PO DAILY 03/09/17 [History] Insulin ASPART [NovoLOG] 10 unit SQ TIDWM PRN #5 vial 03/12/17 [Rx] Insulin Glargine,Hum.rec.anlog [Lantus Solostar] 10 - 20 unit SQ HS 04/23/17 [ History] Lisinopril/Hydrochlorothiazide [Zestoretic 20-12.5 mg Tablet] 1 tab PO DAILY [History] 3 Allergy/AdvReac Type Severity Reaction Status Date / Time hydrocodone Allergy Hives Verified 12/13/16 12:28 Review of Systems All Systems: reviewed and no additional remarkable complaints except as stated Exam - Vital Signs Vital signs: Initial Vital Signs Temp Pulse Resp BP Pulse Ox 98.1 F 121 18 120/66 100 08/01/17 14:58 08/01/17 14:58 08/01/17 14:58 08/01/17 14:58 08/01/17 14:58 - Constitutional Constitutional: no acute distress - HEENT HEENT: PERRL - Neck Neck exam: full ROM - Lungs Respiratory exam: CTAB - Cardiovascular Cardiovascular exam: RRR - Abdomen Abdomen: Present: bowel sounds normal, non tender (distended) Results Result Diagrams: 08/05/17 05:33 08/05/17 05:33 Abnormal lab results WBC 1.9 K/mcL (4.3-11.1) L D 08/05/17 05:33 RBC 3.47 M/mcL (3.82-4.97) L 08/05/17 05:33 Hgb 10.3 g/dL (11.5-15.4) L 08/05/17 05:33 Hct 31.8 % (35.3-44.9) L 08/05/17 05:33 RDW 14.8 % (11.5-14.5) H 08/05/17 05:33 Neutrophils # 0.5 K/mcL (1.6-8.9) L 08/05/17 05:33 VBG pH 6.98 pH Units (7.32-7.42) L* 08/01/17 20:28 VBG pCO2 24 mmHg (41-51) L 08/01/17 20:28 VBG pO2 99 mmHg (25-50) H 08/01/17 20:28 VBG HCO3 6 mEq/L (21-27) L 08/01/17 20:28 Sodium 132 mEq/L (136-145) L D 08/05/17 05:33 Potassium 5.2 mEq/L (3.5-5.1) H 08/05/17 05:33 Chloride 109 mEq/L (98-107) H 08/05/17 05:33 BUN 5 mg/dL (6-20) L 08/05/17 05:33 Glucose 322 mg/dL (70-105) H 08/05/17 05:33 POC Glucose 142 mg/dL (70-99) H 08/04/17 18:04 Hemoglobin A1c 9.6 % (-5.6) H 08/02/17 04:08 Lactic Acid < 0.2 mmol/L (0.5-2.2) L 08/01/17 16:32 Calcium 8.2 mg/dL (8.6-10.3) L 08/05/17 05:33 AST 526 Units/L (13-39) H 08/05/17 05:33 ALT 135 Units/L (7-52) H 08/05/17 05:33 Alkaline Phosphatase 316 Units/L (34-104) H 08/05/17 05:33 Serum Total Protein 5.2 g/dL (6.4-8.9) L 08/05/17 05:33 Albumin 2.7 g/dL (3.5-5.7) L 08/05/17 05:33 Beta-Hydroxybutyric Acd > 2.00 mmol/L (0.02-0.27) H 08/01/17 16:32 Ur Specific [place] 1.029 (1.010-1.025) H 08/01/17 15:50 Urine Protein 30 mg/dL (Neg-Trace) H 08/01/17 15:50 Urine Glucose (UA) >=1000 mg/dL (Normal) H 08/01/17 15:50 Urine Ketones >=160 mg/dL (Negative) H 08/01/17 15:50 Urine Blood Trace (Negative) H 08/01/17 15:50 Urine Microscopic RBC 3-5 per hpf (0-3) H 08/01/17 15:50 Urine Microscopic WBC 3-5 per hpf (0-3) H 08/01/17 15:50 Ur Squamous Epith Cells Many per lpf (None-Few) H 08/01/17 15:50 All other labs normal. Consult Discharge Plan - Plan Instructions: Diabetes Mellitus Type 2 in Adults (DC) Referrals: Zehra Jamison CNP [Primary Care Provider] - 08/07/17 9:30 am
[2017-08-05] MEDS ORDERED: *HR* HYDROmorphone (PF) 1 MG/ML SYRINGE IVP ONE (13:04)
[2017-08-05] MEDS: *HR* Dextrose 50 % in Water (Syg) 50 ML SYRINGE IVP PRN ×2 (14:48→16:35)
--- NOTE | 2017-08-05 14:52 | Discharge Summary ---
<KhanhsonaliyanciRonni Roach - Last Filed: 08/05/17 14:57> Orders not resulted at time of discharge: Pending orders 08/06/17 04:00 CBC [Complete Blood Count] [HEME] AM 0400 CMP [Comprehensive Metabolic Panel] AM 0400 Date of Encounter: 08/05/17 Time of Encounter: 14:52 - Discharge Diagnosis (1) DKA (diabetic ketoacidoses) Priority: Primary Status: Acute Qualifiers: Diabetes mellitus type: type 1 Diabetes mellitus complication detail: without coma Qualified Code(s): E10.10 - Type 1 diabetes mellitus with ketoacidosis without coma (2) Pelvic inflammatory disease (PID) Priority: Primary Status: Acute (3) Abdominal pain Priority: Primary Status: Acute (4) Hyperkalemia Status: Acute (5) Gastroparesis diabeticorum Priority: Secondary Status: Chronic (6) DVT prophylaxis Priority: Secondary Status: Acute (7) Neutropenia Priority: Primary Status: Acute Hospital course: Ms. Sierra is a 31 year old female significant pmh uncontrolled type I DM with complications including gastroporesis, legally blind and neuropathy admitted with DKA, significant anion gap, abg pH 6.9 and glucoses >600. She was started on IV insulin and transferred to ICU step down. She received large volume saline replacement and electrolytes were monitored and address. She improved over night and was switched to sq insulin after closure of her Anion gap and improvement in her bicarbonate levels. She continued to have abdominal pain and was further evaluated with review of her initial CT abdomen which there was concern for an enlarged uterus ( test -) a pelvic US was performed concerning for PID, Gonococcus and clamydia antibodies were negative. she was started on IV rocephin, Flagyl and Doxycycline. Doxycycline was discontinue the following morning. Her WBC, neutrophil count trended down over the next few days with increase in abdominal distension. On 08/05 her Neutrophil # was 0.5, WBC 1.9, flagyl was discontinued. She had significant elevations in AST,ALT and Alk phos. CT of the abd/pelvis with both IV and oral contrast demonstrates PID which was concerning and not improving on antibiotic therapy. Gynecology was consulted and evaluated the patient. After full review it was determined that it would be best to transfer Ms. Sierra as it would be important to have infectious disease involvement for antibiotic review/recommendations. Patient was transferring to [facility]. - Time Spent with Patient Total time spent providing and/or coordinating discharge services: - Discharge Medications Home Medications: Metoprolol [Lopressor] 25 mg PO BID #60 tablet 12/18/16 [Rx] Sodium Bicarbonate 650 mg PO DAILY 03/09/17 [History] Insulin ASPART [NovoLOG] 10 unit SQ TIDWM PRN #5 vial 03/12/17 [Rx] Insulin Glargine,Hum.rec.anlog [Lantus Solostar] 10 - 20 unit SQ HS 04/23/17 [ History] Lisinopril/Hydrochlorothiazide [Zestoretic 20-12.5 mg Tablet] 1 tab PO DAILY [History] Allergies/Adverse Reactions: 3 Allergy/AdvReac Type Severity Reaction Status Date / Time hydrocodone Allergy Hives Verified 12/13/16 12:28 Date of admission: 08/01/17 20:26 Primary care physician: Zehra Jamison Consults: 08/01/17 21:28 Consult to Nutrition [CONS] Routine Comment: Consulting Provider: NUTRITION Reason for Dietary Consult: MST Score 08/05/17 12:19 Consult to ADDICTIONS COUNSELOR [CONS] Routine Consulting Provider: TRACTOR CRANE ENGINEER [place] Reason for Consult: PID worsening. Discussed with Humanities Instructor team 08/05 Call Completed: Yes Discharging clinician: Ronni Martinez Anticipated date of discharge: 08/05/17 - Constitutional Vitals: Temp Pulse Resp BP Pulse Ox 97.5 F L 94 17 130/86 97 08/05/17 10:40 08/05/17 10:40 08/05/17 10:40 08/05/17 10:40 08/05/17 10:40 General appearance: Present: cooperative, A&O X 3, severe distress, answers questions appropriately Exam: General: Patient alert, awake, oriented 3, interactive, in no acute distress HEENT: Normocephalic, atraumatic, pupils equal reactive to light, moist mucous membranes neck supple trachea midline no palpable lymphadenopathy, no thyromegaly. Chest: Symmetric bilateral correlating with respiratory effort, effort nonlabored. Cardiac: Regular rate and rhythm, positive S1 and S2. no bruits appreciated bilateral carotids, Radial pulses 2+ bilateral, posterior tibial and dorsal pedal pulses 2+ bilateral. Respiratory: Clear to auscultation all lung sterling Abdomen: Distended, tenderness to palpation more so right upper quadrant and suprapubic, hypoactive bowel sounds no palpable masses appreciated on examination Extremities: Symmetric bilateral, bilateral lower extremities without erythema or edema patient moving all 4 extremities spontaneously. Neurologic: No focal deficits appreciated on examination. Face symmetric, muscle strength symmetric bilateral upper and lower extremities. - Patient Status Disposition: Transfer Intermediate Care Fac Condition: Critical Functional capacity at discharge: independent ambulation Overall status at discharge: patient is not back to baseline - Discharge Instructions Instructions: Diabetes Mellitus Type 2 in Adults (DC) Follow Up With: Zehra Jamison CNP [Primary Care Provider] - 08/07/17 9:30 am - VTE Documentation of Mechanical Device: Intermittent pneumatic compression device <Kalyan Galindo - Last Filed: 08/05/17 16:23> Orders not resulted at time of discharge: Pending orders 08/06/17 04:00 CBC [Complete Blood Count] [HEME] AM 0400 CMP [Comprehensive Metabolic Panel] AM 0400 Date of Encounter: 08/05/17 - Discharge Diagnosis (1) Gastroparesis diabeticorum Status: Chronic (2) Hyperkalemia Status: Acute (3) Abdominal pain Status: Acute (4) DKA (diabetic ketoacidoses) Status: Acute Qualifiers: Diabetes mellitus type: type 1 Diabetes mellitus complication detail: without coma Qualified Code(s): E10.10 - Type 1 diabetes mellitus with ketoacidosis without coma (5) Pelvic inflammatory disease (PID) Status: Acute (6) DVT prophylaxis Status: Acute (7) Neutropenia Status: Acute Hospital course: Ms. Sierra is a 31 year old female - Time Spent with Patient Total time spent providing and/or coordinating discharge services: Date of admission: 08/01/17 20:26 Primary care physician: Zehra Jamison Consults: 08/01/17 21:28 Consult to Nutrition [CONS] Routine Comment: Consulting Provider: NUTRITION Reason for Dietary Consult: MST Score 08/05/17 12:19 Consult to ADDICTIONS COUNSELOR [CONS] Routine Consulting Provider: TRACTOR CRANE ENGINEER [place] Reason for Consult: PID worsening. Discussed with Humanities Instructor team 08/05 Call Completed: Yes - Constitutional Vitals: Temp Pulse Resp BP Pulse Ox 97.5 F L 95 17 129/84 97 08/05/17 15:30 08/05/17 15:30 08/05/17 15:30 08/05/17 15:30 08/05/17 15:30 - Attending Attestation Severe DKA, 2ry to pelvic inflammatory disease severe neutropenia/neutropenic fever complains of tenderness in the right lower quadrant Tests for chlamydia and gonococcus were negative start merrem transfer to [facility] under the care of Dr Yañez Pelvic ultrasound showed: Hyperemic myometrium is demonstrated, nonspecific, for which some considerations could include pelvic inflammatory disease or sequela of recent trauma or intervention. time spent: 40 min I examined this patient and my medical decision-making was reviewed with the Resident Physician. I agree with the documented findings, disposition and treatment plan as described except to the extent set forth below.
[2017-08-05] MEDS ORDERED: D5% in 0.45% NACL 1,000 ML IVC SCH (15:15)
[2017-08-05 20:17] VITALS: BP 120/75
[2017-08-06] MEDS ORDERED: Fluconazole 200 MG/100 ML 200 MG/100 ML BAG IVPB SCH (09:00)
== END 2017-08-05 20:44 | DRG 420 ==
LOC: EMEROO 14:55 → 2NNU 20:26 → 2ANU 08-03 10:18
PROVIDERS: ADMIT Internal Medicine; ATTEND Internal Medicine

== ENCOUNTER 2017-11-03 08:52 | Inpatient (IN) ==
[2017-11-03] MEDS ORDERED: 0.9 % Sodium Chloride 1,000 ML IVC ONE ×2 (09:08→09:13)
[2017-11-03] MEDS ORDERED: Haloperidol Lactate 5 MG/ML VIAL IVP ONE (09:12)
--- NOTE | 2017-11-03 09:17 | Emergency Department Note ---
Disposition Clinical Impression: Hyperglycemia, Hyperkalemia Diabetic ketoacidosis Qualifiers: Diabetes mellitus type: other specified (including [place]AR[place]) Diabetes mellitus complication detail: without coma Qualified Code(s): E13.10 - Other specified diabetes mellitus with ketoacidosis without coma Disposition: Admitted As Inpatient Condition: Fair Time of Disposition: 11:59 Abdominal Pain HPI - General Chief Complaint: ED Abdominal Pain Stated Complaint: DKA/abd pain/NVD Time Seen by Provider: 11/03/17 09:03 Source: patient Mode of arrival: ambulatory Limitations: no limitations Nursing Notes Reviewed: Yes Vital Signs Reviewed: Yes - History of Present Illness HPI Narrative: 31-year-old insulin-dependent diabetic presents for evaluation of abdominal pain and concerns of DKA. Patient does have a history of DKA. Patient's significant other provided the history. States that symptom onsets been over the past day and a half. Notes profuse vomiting and diarrhea. Also complaining of abdominal pain. Notes to be diffuse. Family bedside states the patient has been compliant with her insulin. Describes symptoms of gastroparesis. Did not denies any fevers. Reports he has had her gallbladder and her appendix removed in the past. States she has had her tubes tied as well. No chance of being . Denies any chest pain or shortness of breath. Notes family members with similar symptoms. Pain Scale: 9 - Related Data Home Medications Medication Instructions Recorded Confirmed Sodium Bicarbonate 650 mg PO DAILY 03/09/17 08/01/17 Insulin Glargine,Hum.rec.anlog 10 - 20 unit SQ HS 04/23/17 11/03/17 [Lantus Solostar] Lisinopril/Hydrochlorothiazide 1 tab PO DAILY 04/23/17 08/01/17 [Zestoretic 20-12.5 mg Tablet] Previous Rx's Medication Instructions Recorded Metoprolol [Lopressor] 25 mg PO BID #60 tablet 12/18/16 Insulin ASPART [NovoLOG] 10 unit SQ TIDWM PRN #5 vial 03/12/17 Allergies Allergy/AdvReac Type Severity Reaction Status Date / Time hydrocodone Allergy Hives Verified 11/03/17 08:55 All systems ED: reviewed and negative except as stated. Constitutional: Denies: fever Cardiovascular: Denies: chest pain Respiratory: Denies: cough, dyspnea Gastrointestinal: Reports: abdominal pain, nausea, vomiting, diarrhea Abdominal Pain PMH - Past Medical History Medical history: Reports: diabetes, GERD, glaucoma, hyperlipidemia, arthritis, hypertension, liver disease, osteoporosis, cirrhosis Female Surgical History: Reports: cholecystectomy, , Tonsillectomy, appendectomy, Adenoidectomy [employer] history: Reports: bilateral tubal ligation Psychiatric history: Reports: anxiety - Social History Smoking status: Never smoker Alcohol use: Reports: none Drug use: Reports: cocaine Physical Exam - General Limitations: no limitations General appearance: alert, in no apparent distress, other (Kussmaul breathing) - Head Head exam: atraumatic, normocephalic, normal inspection - Eye Eye exam: Present: normal appearance, EOMI - ENT ENT exam: normal exam, mucous membranes dry - Neck Neck exam: Present: normal inspection, trachea midline - Chest Chest inspection: Present: normal inspection, symmetric chest wall rise - Respiratory Respiratory exam: Present: normal lung sounds bilaterally. Absent: respiratory distress - Cardiovascular Cardiovascular exam: Present: normal rhythm, tachycardia. Absent: systolic murmur - Abdominal Exam Abdominal exam: Present: soft, Non-Tender. Absent: guarding, rebound - Expanded Lower Extremity Exam Neurovascular/Tendon exam: Present: normal capillary refill - Back Exam Back exam: Present: normal inspection - Neurological Exam Neurological exam: Present: alert, CN II-XII intact - Skin Skin exam: Present: warm, dry, intact, normal color Course Course Narrative: Patient's bedside glucoses noted to be high. Patient does have concerning signs symptoms of DKA clinically. Patient will get 2 IVs, normal saline boluses. Basic labs as well as EKG chest x-ray. Patient also get symptomatic treatment. Disposition likely admission. - Reevaluation(s) Reevaluation #1: Patient has several critical lab results patient has a pH of 7.13 with a gap of 32. Time: 10:06 Vital Signs Temperature 98 F 11/03/17 08:58 Pulse Rate 131 11/03/17 08:58 Respiratory Rate 28 11/03/17 08:58 Blood Pressure 150/83 11/03/17 08:58 O2 Sat by Pulse Oximetry 99 11/03/17 08:58 Temperature 98 F 11/03/17 09:50 Pulse Rate 130 11/03/17 11:20 Respiratory Rate 26 11/03/17 11:43 Blood Pressure 133/73 11/03/17 11:43 O2 Sat by Pulse Oximetry 99 11/03/17 11:20 Oxygen Delivery Oxygen Delivery Room Air Abdominal Pain - MDM Narrative Medical decision making narrative: 31-year-old female with a history of insulin dependent diabetes presents for evaluation of DKA. Patient was noted be severe DKA with a gap of 32. Patient was started on insulin drip as well as IV fluids. Initiated on the protocol. Patient's etiology of DKA likely due to noncompliance as patient does have a history of such. Patient was treated with Haldol as well as Zofran for the nausea vomiting. Patient heart rate improved during the ED course. Patient did get 2 peripheral IVs 1 PICC access as the patient does have difficult IV access. Patient's urine shows signs of ketones no signs of infection. Patient had a soft abdomen and did not warrant any imaging of the abdomen at this time. Patient's labs are also reviewed. Patient's abdominal pain is likely related to her vomiting and her metabolic derangements. Discussed the case initially with the hospitalist as felt patient could be corrected in the stepdown however the hospitalist felt more comfortable for the patient to be admitted to the ICU. - Medical Records Medical records reviewed: Yes I reviewed the patient's medical records. - Lab Data Lab results reviewed: Yes I reviewed the patient's lab results. Result diagrams: 11/03/17 09:10 11/03/17 09:14 Lab Results 11/03/17 11/03/17 11/03/17 Range/Units 09:08 09:09 09:10 WBC 10.5 (4.3-11.1) K/mcL RBC 3.85 (3.82-4.97) M/mcL Hgb 12.3 (11.5-15.4) g/dL Hct 39.1 (35.3-44.9) % MCV 101.6 H (83.0-100.0) fL MCH 31.9 (28.0-33.3) pg MCHC 31.5 L (31.6-35.5) g/dL RDW 13.7 (11.5-14.5) % Plt Count 448 H (140-400) K/mcL MPV 9.9 (9.4-12.4) fL Immature Gran % 1.2 (0-4) % Seg Neutrophils % 78.8 % Lymphocytes % 14.7 % Monocytes % 4.7 % Eosinophils % 0.4 % Basophils % 0.2 % Neutrophils # 8.3 (1.6-8.9) K/mcL Lymphocytes # 1.5 (0.6-4.6) K/mcL Monocytes # 0.5 (0.0-1.3) K/mcL Eosinophils # 0.0 (0.0-0.6) K/mcL Basophils # 0.0 (0.0-0.2) K/mcL Platelet Estimate Normal (Normal) Anisocytosis 1+ A (Not Present) VBG pH (7.32-7.42) pH Units VBG pCO2 (41-51) mmHg VBG pO2 (25-50) mmHg VBG HCO3 (21-27) mEq/L Sodium (136-145) mEq/L Potassium (3.5-5.1) mEq/L Chloride (98-107) mEq/L Carbon Dioxide (23-29) mEq/L BUN (6-20) mg/dL Creatinine (0.60-1.20) mg/dL Est GFR ( Amer) (> 60) Est GFR (Non-Af Amer) (> 60) BUN/Creatinine Ratio (6-26) Glucose (70-105) mg/dL POC Glucose > 600 H* > 600 H* (70-99) mg/dL Calculated Osmolality (280-300) Lactic Acid (0.5-2.2) mmol/L Calcium (8.6-10.3) mg/dL Phosphorus (2.7-4.5) mg/dL Magnesium (1.6-2.6) mg/dL Total Bilirubin (0.3-1.0) mg/dL AST (13-39) Units/L ALT (7-52) Units/L Alkaline Phosphatase (34-104) Units/L Serum Total Protein (6.4-8.9) g/dL Albumin (3.5-5.7) g/dL Globulin (2.4-3.5) g/dL Albumin/Globulin Ratio (1.1-2.2) Beta-Hydroxybutyric Acd (0.02-0.27) mmol/L Urine Color (Yellow) Urine Clarity (Clear) Urine pH (5.0-8.0) pH Units Ur Specific [place] (1.010-1.025) Urine Protein (Neg-Trace) mg/dL Urine Glucose (UA) (Normal) mg/dL Urine Ketones (Negative) mg/dL Urine Blood (Negative) Urine Nitrite (Negative) Urine Bilirubin (Negative) Urine Urobilinogen (Normal) mg/dL Ur Leukocyte Esterase (Negative) Urine Microscopic RBC (0-3) per hpf Urine Microscopic WBC (0-3) per hpf Ur Squamous Epith Cells (None-Few) per lpf Urine Bacteria (None-Few) per hpf Hyaline Casts (None-Few) per lpf Urine Test (Negative) Person Notif of Crit 11/03/17 11/03/17 11/03/17 Range/Units 09:10 09:10 09:14 WBC (4.3-11.1) K/mcL RBC (3.82-4.97) M/mcL Hgb (11.5-15.4) g/dL Hct (35.3-44.9) % MCV (83.0-100.0) fL MCH (28.0-33.3) pg MCHC (31.6-35.5) g/dL RDW (11.5-14.5) % Plt Count (140-400) K/mcL MPV (9.4-12.4) fL Immature Gran % (0-4) % Seg Neutrophils % % Lymphocytes % % Monocytes % % Eosinophils % % Basophils % % Neutrophils # (1.6-8.9) K/mcL Lymphocytes # (0.6-4.6) K/mcL Monocytes # (0.0-1.3) K/mcL Eosinophils # (0.0-0.6) K/mcL Basophils # (0.0-0.2) K/mcL Platelet Estimate (Normal) Anisocytosis (Not Present) VBG pH (7.32-7.42) pH Units VBG pCO2 (41-51) mmHg VBG pO2 (25-50) mmHg VBG HCO3 (21-27) mEq/L Sodium 133 L (136-145) mEq/L Potassium 6.3 H (3.5-5.1) mEq/L Chloride 98 (98-107) mEq/L Carbon Dioxide 3 L* (23-29) mEq/L BUN 12 (6-20) mg/dL Creatinine 1.07 (0.60-1.20) mg/dL Est GFR ( Amer) > 60 (> 60) Est GFR (Non-Af Amer) 59 L (> 60) BUN/Creatinine Ratio 11 (6-26) Glucose 750 H* (70-105) mg/dL POC Glucose (70-99) mg/dL Calculated Osmolality 312 H (280-300) Lactic Acid (0.5-2.2) mmol/L Calcium 9.1 (8.6-10.3) mg/dL Phosphorus 5.9 H (2.7-4.5) mg/dL Magnesium 2.1 (1.6-2.6) mg/dL Total Bilirubin 0.3 (0.3-1.0) mg/dL AST 12 L (13-39) Units/L ALT 10 (7-52) Units/L Alkaline Phosphatase 174 H (34-104) Units/L Serum Total Protein 6.7 (6.4-8.9) g/dL Albumin 3.8 (3.5-5.7) g/dL Globulin 2.9 (2.4-3.5) g/dL Albumin/Globulin Ratio 1.3 (1.1-2.2) Beta-Hydroxybutyric Acd > 2.00 H (0.02-0.27) mmol/L Urine Color (Yellow) Urine Clarity (Clear) Urine pH (5.0-8.0) pH Units Ur Specific [place] (1.010-1.025) Urine Protein (Neg-Trace) mg/dL Urine Glucose (UA) (Normal) mg/dL Urine Ketones (Negative) mg/dL Urine Blood (Negative) Urine Nitrite (Negative) Urine Bilirubin (Negative) Urine Urobilinogen (Normal) mg/dL Ur Leukocyte Esterase (Negative) Urine Microscopic RBC (0-3) per hpf Urine Microscopic WBC (0-3) per hpf Ur Squamous Epith Cells (None-Few) per lpf Urine Bacteria (None-Few) per hpf Hyaline Casts (None-Few) per lpf Urine Test (Negative) Person Notif of Crit 11/03/17 11/03/17 11/03/17 Range/Units 09:25 09:38 10:19 WBC (4.3-11.1) K/mcL RBC (3.82-4.97) M/mcL Hgb (11.5-15.4) g/dL Hct (35.3-44.9) % MCV (83.0-100.0) fL MCH (28.0-33.3) pg MCHC (31.6-35.5) g/dL RDW (11.5-14.5) % Plt Count (140-400) K/mcL MPV (9.4-12.4) fL Immature Gran % (0-4) % Seg Neutrophils % % Lymphocytes % % Monocytes % % Eosinophils % % Basophils % % Neutrophils # (1.6-8.9) K/mcL Lymphocytes # (0.6-4.6) K/mcL Monocytes # (0.0-1.3) K/mcL Eosinophils # (0.0-0.6) K/mcL Basophils # (0.0-0.2) K/mcL Platelet Estimate (Normal) Anisocytosis (Not Present) VBG pH 7.13 L* (7.32-7.42) pH Units VBG pCO2 16 L (41-51) mmHg VBG pO2 147 H (25-50) mmHg VBG HCO3 5 L (21-27) mEq/L Sodium (136-145) mEq/L Potassium (3.5-5.1) mEq/L Chloride (98-107) mEq/L Carbon Dioxide (23-29) mEq/L BUN (6-20) mg/dL Creatinine (0.60-1.20) mg/dL Est GFR ( Amer) (> 60) Est GFR (Non-Af Amer) (> 60) BUN/Creatinine Ratio (6-26) Glucose (70-105) mg/dL POC Glucose (70-99) mg/dL Calculated Osmolality (280-300) Lactic Acid 2.1 (0.5-2.2) mmol/L Calcium (8.6-10.3) mg/dL Phosphorus (2.7-4.5) mg/dL Magnesium (1.6-2.6) mg/dL Total Bilirubin (0.3-1.0) mg/dL AST (13-39) Units/L ALT (7-52) Units/L Alkaline Phosphatase (34-104) Units/L Serum Total Protein (6.4-8.9) g/dL Albumin (3.5-5.7) g/dL Globulin (2.4-3.5) g/dL Albumin/Globulin Ratio (1.1-2.2) Beta-Hydroxybutyric Acd (0.02-0.27) mmol/L Urine Color Yellow (Yellow) Urine Clarity Clear (Clear) Urine pH 5.5 (5.0-8.0) pH Units Ur Specific [place] 1.020 (1.010-1.025) Urine Protein 30 H (Neg-Trace) mg/dL Urine Glucose (UA) >=1000 H (Normal) mg/dL Urine Ketones >=160 H (Negative) mg/dL Urine Blood Trace H (Negative) Urine Nitrite Negative (Negative) Urine Bilirubin Negative (Negative) Urine Urobilinogen Normal (Normal) mg/dL Ur Leukocyte Esterase Negative (Negative) Urine Microscopic RBC 0-3 (0-3) per hpf Urine Microscopic WBC 0-3 (0-3) per hpf Ur Squamous Epith Cells Few (None-Few) per lpf Urine Bacteria None Seen (None-Few) per hpf Hyaline Casts None Seen (None-Few) per lpf Urine Test (Negative) Person Notif of Seven GUERRA 11/03/17 11/03/17 11/03/17 Range/Units 10:19 10:51 10:52 WBC (4.3-11.1) K/mcL RBC (3.82-4.97) M/mcL Hgb (11.5-15.4) g/dL Hct (35.3-44.9) % MCV (83.0-100.0) fL MCH (28.0-33.3) pg MCHC (31.6-35.5) g/dL RDW (11.5-14.5) % Plt Count (140-400) K/mcL MPV (9.4-12.4) fL Immature Gran % (0-4) % Seg Neutrophils % % Lymphocytes % % Monocytes % % Eosinophils % % Basophils % % Neutrophils # (1.6-8.9) K/mcL Lymphocytes # (0.6-4.6) K/mcL Monocytes # (0.0-1.3) K/mcL Eosinophils # (0.0-0.6) K/mcL Basophils # (0.0-0.2) K/mcL Platelet Estimate (Normal) Anisocytosis (Not Present) VBG pH (7.32-7.42) pH Units VBG pCO2 (41-51) mmHg VBG pO2 (25-50) mmHg VBG HCO3 (21-27) mEq/L Sodium (136-145) mEq/L Potassium (3.5-5.1) mEq/L Chloride (98-107) mEq/L Carbon Dioxide (23-29) mEq/L BUN (6-20) mg/dL Creatinine (0.60-1.20) mg/dL Est GFR ( Amer) (> 60) Est GFR (Non-Af Amer) (> 60) BUN/Creatinine Ratio (6-26) Glucose (70-105) mg/dL POC Glucose > 600 H* > 600 H* (70-99) mg/dL Calculated Osmolality (280-300) Lactic Acid (0.5-2.2) mmol/L Calcium (8.6-10.3) mg/dL Phosphorus (2.7-4.5) mg/dL Magnesium (1.6-2.6) mg/dL Total Bilirubin (0.3-1.0) mg/dL AST (13-39) Units/L ALT (7-52) Units/L Alkaline Phosphatase (34-104) Units/L Serum Total Protein (6.4-8.9) g/dL Albumin (3.5-5.7) g/dL Globulin (2.4-3.5) g/dL Albumin/Globulin Ratio (1.1-2.2) Beta-Hydroxybutyric Acd (0.02-0.27) mmol/L Urine Color (Yellow) Urine Clarity (Clear) Urine pH (5.0-8.0) pH Units Ur Specific [place] (1.010-1.025) Urine Protein (Neg-Trace) mg/dL Urine Glucose (UA) (Normal) mg/dL Urine Ketones (Negative) mg/dL Urine Blood (Negative) Urine Nitrite (Negative) Urine Bilirubin (Negative) Urine Urobilinogen (Normal) mg/dL Ur Leukocyte Esterase (Negative) Urine Microscopic RBC (0-3) per hpf Urine Microscopic WBC (0-3) per hpf Ur Squamous Epith Cells (None-Few) per lpf Urine Bacteria (None-Few) per hpf Hyaline Casts (None-Few) per lpf Urine Test Negative (Negative) Person Notif of Crit - Radiology Data Radiology results reviewed: Yes I reviewed the patient's radiology results. Chest X-Ray 11/03/17 09:10 IMPRESSION: No acute process. D/ / Adelso Ordonez MD / Adelso Ordonez MD Interpreting Provider: Adelso Ordonez MD - EKG Data EKG attestation: Yes I reviewed and interpreted this EKG. EKG shows normal: sinus rhythm Rate: tachycardia Rhythm: NSR [place]/QRS: normal, IVCD Interpretation: no acute changes, nonspecific ST-T wave changes S.B.A.R. - S.B.A.RLatia Situation: Demographics Background: Presenting Complaint Assessment: Vital Signs, Patient/Family Expectation Recommendation: Barrier(s) to disposition, Recommendation based on pending studies, treatments, or consults S.B.A.RLatia Report Given to: Dr. Louise Toribio Repor Time: 11:13
[2017-11-03] MEDS ORDERED: Ondansetron 4 MG/2 ML VIAL IVP ONE (09:30)
--- NOTE | 2017-11-03 09:35 | Emergency Department Note ---
Disposition Clinical Impression: Diabetic ketoacidosis Qualifiers: Diabetes mellitus type: other specified (including CLARENCE) Diabetes mellitus complication detail: without coma Qualified Code(s): E13.10 - Other specified diabetes mellitus with ketoacidosis without coma Disposition: Admitted As Inpatient Condition: Fair General Adult HPI - General Chief complaint: ED Abdominal Pain Stated complaint: DKA/abd pain/NVD Time Seen by Provider: 11/03/17 09:03 Source: patient Mode of arrival: ambulatory Limitations: no limitations Nursing Notes Reviewed: Yes Vital Signs Reviewed: Yes - History of Present Illness Pain Scale: 9 - Related Data Home Medications Medication Instructions Recorded Confirmed Sodium Bicarbonate 650 mg PO DAILY 03/09/17 08/01/17 Insulin Glargine,Hum.rec.anlog 10 - 20 unit SQ HS 04/23/17 11/03/17 [Lantus Solostar] Lisinopril/Hydrochlorothiazide 1 tab PO DAILY 04/23/17 08/01/17 [Zestoretic 20-12.5 mg Tablet] Previous Rx's Medication Instructions Recorded Metoprolol [Lopressor] 25 mg PO BID #60 tablet 12/18/16 Insulin ASPART [NovoLOG] 10 unit SQ TIDWM PRN #5 vial 03/12/17 Allergies Allergy/AdvReac Type Severity Reaction Status Date / Time hydrocodone Allergy Hives Verified 11/03/17 08:55 Constitutional: Denies: fever Cardiovascular: Denies: chest pain Respiratory: Denies: cough, dyspnea Gastrointestinal: Reports: abdominal pain, nausea, vomiting, diarrhea Past Medical History - Past Medical History Medical history: Reports: diabetes, GERD, glaucoma, hyperlipidemia, arthritis, hypertension, liver disease, osteoporosis, cirrhosis Surgical history: Reports: appendectomy, , cholecystectomy, sinus surgery, other Psychiatric history: Reports: anxiety 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 - Social History Smoking Status: Never smoker Smokeless Tobacco Status: No Alcohol use: Reports: none Drug use: Reports: cocaine Physical Exam - General Limitations: no limitations General appearance: alert, in no apparent distress, other (Kussmaul breathing) Course Vital Signs Temperature 98 F 11/03/17 08:58 Pulse Rate 131 11/03/17 08:58 Respiratory Rate 28 11/03/17 08:58 Blood Pressure 150/83 11/03/17 08:58 O2 Sat by Pulse Oximetry 99 11/03/17 08:58 Temperature 98 F 11/03/17 09:50 Pulse Rate 130 11/03/17 11:20 Respiratory Rate 26 11/03/17 11:43 Blood Pressure 133/73 11/03/17 11:43 O2 Sat by Pulse Oximetry 99 11/03/17 11:20 Oxygen Delivery Oxygen Delivery Room Air Medical Decision Making - MDM Narrative Medical decision making narrative: 1003 hrs.: Patient's several critical labs called from the lab. CO2 is 3 her serum pH was 7.3 and her glucose was greater in 700. Were going to hydrate her started on insulin drip and then she will get admission. Her CBC is come back her white count is lower than last time. 1050 hrs.: Patient's labs are back. She started on insulin. Going to go ahead and bring her into the hospital. Stepdown unit requested. Speaking with hospitalist now for admission. Patient is in agreement with this plan. Impression is acute DKA with gastroparesis. 1100 hrs.: Hospitalist felt this case should be better served by the manager fleet intensiveness is going to admit the patient to the ICU. Patient's updated on plan - Lab Data Result diagrams: 11/03/17 09:10 11/03/17 09:14 Lab Results 11/03/17 11/03/17 11/03/17 Range/Units 09:08 09:09 09:10 WBC 10.5 (4.3-11.1) K/mcL RBC 3.85 (3.82-4.97) M/mcL Hgb 12.3 (11.5-15.4) g/dL Hct 39.1 (35.3-44.9) % MCV 101.6 H (83.0-100.0) fL MCH 31.9 (28.0-33.3) pg MCHC 31.5 L (31.6-35.5) g/dL RDW 13.7 (11.5-14.5) % Plt Count 448 H (140-400) K/mcL MPV 9.9 (9.4-12.4) fL Immature Gran % 1.2 (0-4) % Seg Neutrophils % 78.8 % Lymphocytes % 14.7 % Monocytes % 4.7 % Eosinophils % 0.4 % Basophils % 0.2 % Neutrophils # 8.3 (1.6-8.9) K/mcL Lymphocytes # 1.5 (0.6-4.6) K/mcL Monocytes # 0.5 (0.0-1.3) K/mcL Eosinophils # 0.0 (0.0-0.6) K/mcL Basophils # 0.0 (0.0-0.2) K/mcL Platelet Estimate Normal (Normal) Anisocytosis 1+ A (Not Present) VBG pH (7.32-7.42) pH Units VBG pCO2 (41-51) mmHg VBG pO2 (25-50) mmHg VBG HCO3 (21-27) mEq/L Sodium (136-145) mEq/L Potassium (3.5-5.1) mEq/L Chloride (98-107) mEq/L Carbon Dioxide (23-29) mEq/L BUN (6-20) mg/dL Creatinine (0.60-1.20) mg/dL Est GFR ( Amer) (> 60) Est GFR (Non-Af Amer) (> 60) BUN/Creatinine Ratio (6-26) Glucose (70-105) mg/dL POC Glucose > 600 H* > 600 H* (70-99) mg/dL Calculated Osmolality (280-300) Lactic Acid (0.5-2.2) mmol/L Calcium (8.6-10.3) mg/dL Phosphorus (2.7-4.5) mg/dL Magnesium (1.6-2.6) mg/dL Total Bilirubin (0.3-1.0) mg/dL AST (13-39) Units/L ALT (7-52) Units/L Alkaline Phosphatase (34-104) Units/L Serum Total Protein (6.4-8.9) g/dL Albumin (3.5-5.7) g/dL Globulin (2.4-3.5) g/dL Albumin/Globulin Ratio (1.1-2.2) Beta-Hydroxybutyric Acd (0.02-0.27) mmol/L Urine Color (Yellow) Urine Clarity (Clear) Urine pH (5.0-8.0) pH Units Ur Specific Moody (1.010-1.025) Urine Protein (Neg-Trace) mg/dL Urine Glucose (UA) (Normal) mg/dL Urine Ketones (Negative) mg/dL Urine Blood (Negative) Urine Nitrite (Negative) Urine Bilirubin (Negative) Urine Urobilinogen (Normal) mg/dL Ur Leukocyte Esterase (Negative) Urine Microscopic RBC (0-3) per hpf Urine Microscopic WBC (0-3) per hpf Ur Squamous Epith Cells (None-Few) per lpf Urine Bacteria (None-Few) per hpf Hyaline Casts (None-Few) per lpf Urine Test (Negative) Person Notif of Crit 11/03/17 11/03/17 11/03/17 Range/Units 09:10 09:10 09:14 WBC (4.3-11.1) K/mcL RBC (3.82-4.97) M/mcL Hgb (11.5-15.4) g/dL Hct (35.3-44.9) % MCV (83.0-100.0) fL MCH (28.0-33.3) pg MCHC (31.6-35.5) g/dL RDW (11.5-14.5) % Plt Count (140-400) K/mcL MPV (9.4-12.4) fL Immature Gran % (0-4) % Seg Neutrophils % % Lymphocytes % % Monocytes % % Eosinophils % % Basophils % % Neutrophils # (1.6-8.9) K/mcL Lymphocytes # (0.6-4.6) K/mcL Monocytes # (0.0-1.3) K/mcL Eosinophils # (0.0-0.6) K/mcL Basophils # (0.0-0.2) K/mcL Platelet Estimate (Normal) Anisocytosis (Not Present) VBG pH (7.32-7.42) pH Units VBG pCO2 (41-51) mmHg VBG pO2 (25-50) mmHg VBG HCO3 (21-27) mEq/L Sodium 133 L (136-145) mEq/L Potassium 6.3 H (3.5-5.1) mEq/L Chloride 98 (98-107) mEq/L Carbon Dioxide 3 L* (23-29) mEq/L BUN 12 (6-20) mg/dL Creatinine 1.07 (0.60-1.20) mg/dL Est GFR ( Amer) > 60 (> 60) Est GFR (Non-Af Amer) 59 L (> 60) BUN/Creatinine Ratio 11 (6-26) Glucose 750 H* (70-105) mg/dL POC Glucose (70-99) mg/dL Calculated Osmolality 312 H (280-300) Lactic Acid (0.5-2.2) mmol/L Calcium 9.1 (8.6-10.3) mg/dL Phosphorus 5.9 H (2.7-4.5) mg/dL Magnesium 2.1 (1.6-2.6) mg/dL Total Bilirubin 0.3 (0.3-1.0) mg/dL AST 12 L (13-39) Units/L ALT 10 (7-52) Units/L Alkaline Phosphatase 174 H (34-104) Units/L Serum Total Protein 6.7 (6.4-8.9) g/dL Albumin 3.8 (3.5-5.7) g/dL Globulin 2.9 (2.4-3.5) g/dL Albumin/Globulin Ratio 1.3 (1.1-2.2) Beta-Hydroxybutyric Acd > 2.00 H (0.02-0.27) mmol/L Urine Color (Yellow) Urine Clarity (Clear) Urine pH (5.0-8.0) pH Units Ur Specific Moody (1.010-1.025) Urine Protein (Neg-Trace) mg/dL Urine Glucose (UA) (Normal) mg/dL Urine Ketones (Negative) mg/dL Urine Blood (Negative) Urine Nitrite (Negative) Urine Bilirubin (Negative) Urine Urobilinogen (Normal) mg/dL Ur Leukocyte Esterase (Negative) Urine Microscopic RBC (0-3) per hpf Urine Microscopic WBC (0-3) per hpf Ur Squamous Epith Cells (None-Few) per lpf Urine Bacteria (None-Few) per hpf Hyaline Casts (None-Few) per lpf Urine Test (Negative) Person Notif of Crit 11/03/17 11/03/17 11/03/17 Range/Units 09:25 09:38 10:19 WBC (4.3-11.1) K/mcL RBC (3.82-4.97) M/mcL Hgb (11.5-15.4) g/dL Hct (35.3-44.9) % MCV (83.0-100.0) fL MCH (28.0-33.3) pg MCHC (31.6-35.5) g/dL RDW (11.5-14.5) % Plt Count (140-400) K/mcL MPV (9.4-12.4) fL Immature Gran % (0-4) % Seg Neutrophils % % Lymphocytes % % Monocytes % % Eosinophils % % Basophils % % Neutrophils # (1.6-8.9) K/mcL Lymphocytes # (0.6-4.6) K/mcL Monocytes # (0.0-1.3) K/mcL Eosinophils # (0.0-0.6) K/mcL Basophils # (0.0-0.2) K/mcL Platelet Estimate (Normal) Anisocytosis (Not Present) VBG pH 7.13 L* (7.32-7.42) pH Units VBG pCO2 16 L (41-51) mmHg VBG pO2 147 H (25-50) mmHg VBG HCO3 5 L (21-27) mEq/L Sodium (136-145) mEq/L Potassium (3.5-5.1) mEq/L Chloride (98-107) mEq/L Carbon Dioxide (23-29) mEq/L BUN (6-20) mg/dL Creatinine (0.60-1.20) mg/dL Est GFR ( Amer) (> 60) Est GFR (Non-Af Amer) (> 60) BUN/Creatinine Ratio (6-26) Glucose (70-105) mg/dL POC Glucose (70-99) mg/dL Calculated Osmolality (280-300) Lactic Acid 2.1 (0.5-2.2) mmol/L Calcium (8.6-10.3) mg/dL Phosphorus (2.7-4.5) mg/dL Magnesium (1.6-2.6) mg/dL Total Bilirubin (0.3-1.0) mg/dL AST (13-39) Units/L ALT (7-52) Units/L Alkaline Phosphatase (34-104) Units/L Serum Total Protein (6.4-8.9) g/dL Albumin (3.5-5.7) g/dL Globulin (2.4-3.5) g/dL Albumin/Globulin Ratio (1.1-2.2) Beta-Hydroxybutyric Acd (0.02-0.27) mmol/L Urine Color Yellow (Yellow) Urine Clarity Clear (Clear) Urine pH 5.5 (5.0-8.0) pH Units Ur Specific Moody 1.020 (1.010-1.025) Urine Protein 30 H (Neg-Trace) mg/dL Urine Glucose (UA) >=1000 H (Normal) mg/dL Urine Ketones >=160 H (Negative) mg/dL Urine Blood Trace H (Negative) Urine Nitrite Negative (Negative) Urine Bilirubin Negative (Negative) Urine Urobilinogen Normal (Normal) mg/dL Ur Leukocyte Esterase Negative (Negative) Urine Microscopic RBC 0-3 (0-3) per hpf Urine Microscopic WBC 0-3 (0-3) per hpf Ur Squamous Epith Cells Few (None-Few) per lpf Urine Bacteria None Seen (None-Few) per hpf Hyaline Casts None Seen (None-Few) per lpf Urine Test (Negative) Person Notif of Seven BLACKEB CHARLIE 11/03/17 11/03/17 11/03/17 Range/Units 10:19 10:51 10:52 WBC (4.3-11.1) K/mcL RBC (3.82-4.97) M/mcL Hgb (11.5-15.4) g/dL Hct (35.3-44.9) % MCV (83.0-100.0) fL MCH (28.0-33.3) pg MCHC (31.6-35.5) g/dL RDW (11.5-14.5) % Plt Count (140-400) K/mcL MPV (9.4-12.4) fL Immature Gran % (0-4) % Seg Neutrophils % % Lymphocytes % % Monocytes % % Eosinophils % % Basophils % % Neutrophils # (1.6-8.9) K/mcL Lymphocytes # (0.6-4.6) K/mcL Monocytes # (0.0-1.3) K/mcL Eosinophils # (0.0-0.6) K/mcL Basophils # (0.0-0.2) K/mcL Platelet Estimate (Normal) Anisocytosis (Not Present) VBG pH (7.32-7.42) pH Units VBG pCO2 (41-51) mmHg VBG pO2 (25-50) mmHg VBG HCO3 (21-27) mEq/L Sodium (136-145) mEq/L Potassium (3.5-5.1) mEq/L Chloride (98-107) mEq/L Carbon Dioxide (23-29) mEq/L BUN (6-20) mg/dL Creatinine (0.60-1.20) mg/dL Est GFR ( Amer) (> 60) Est GFR (Non-Af Amer) (> 60) BUN/Creatinine Ratio (6-26) Glucose (70-105) mg/dL POC Glucose > 600 H* > 600 H* (70-99) mg/dL Calculated Osmolality (280-300) Lactic Acid (0.5-2.2) mmol/L Calcium (8.6-10.3) mg/dL Phosphorus (2.7-4.5) mg/dL Magnesium (1.6-2.6) mg/dL Total Bilirubin (0.3-1.0) mg/dL AST (13-39) Units/L ALT (7-52) Units/L Alkaline Phosphatase (34-104) Units/L Serum Total Protein (6.4-8.9) g/dL Albumin (3.5-5.7) g/dL Globulin (2.4-3.5) g/dL Albumin/Globulin Ratio (1.1-2.2) Beta-Hydroxybutyric Acd (0.02-0.27) mmol/L Urine Color (Yellow) Urine Clarity (Clear) Urine pH (5.0-8.0) pH Units Ur Specific Moody (1.010-1.025) Urine Protein (Neg-Trace) mg/dL Urine Glucose (UA) (Normal) mg/dL Urine Ketones (Negative) mg/dL Urine Blood (Negative) Urine Nitrite (Negative) Urine Bilirubin (Negative) Urine Urobilinogen (Normal) mg/dL Ur Leukocyte Esterase (Negative) Urine Microscopic RBC (0-3) per hpf Urine Microscopic WBC (0-3) per hpf Ur Squamous Epith Cells (None-Few) per lpf Urine Bacteria (None-Few) per hpf Hyaline Casts (None-Few) per lpf Urine Test Negative (Negative) Person Notif of Crit Critical Care Time Critical Care Time: Yes Total Critical Care Time: 45 Attestation: Excluding any separately billable procedures. Attestation Statement - Attestation Attestation: This documentation is done with the assistance of Dragon dictation. Despite efforts made to ensure accuracy, there may be inaccuracies in vest presser or spelling and typographical errors. I examined this patient and my medical decision-making was reviewed with the Resident Physician. I agree with the documented findings, disposition and treatment plan as described except to the extent set forth below. Patient seen and evaluated on arrival with Dr. Crouch, I agree with his evaluation and management plan, I supervised the care the patient's stay. Patient has a history of gastroparesis and DKA. She has been ill for last 2 days. Last time she was here she was transferred up to [facility] difficult to tell whether this was for her gastroparesis or she had some infectious issues at the time also. Her significant other says she is following also the [facility] for a possible implantable pacemaker for gastroparesis. She is a poor historian. Most history comes from him. Were going to start fluids and insulin check labs and she most likely will need admission. He is in agreement with this plan as is she.
[2017-11-03 09:37] LABS: Basophils % 0.2 %; Eosinophils % 0.4 %; Hematocrit 39.1 % (35.3-44.9); Hemoglobin 12.3 g/dL (11.5-15.4); Immature Granulocytes % 1.2 % (0-4); Lymphocytes # 1.5 K/mcL (0.6-4.6); Lymphocytes % 14.7 %; Mean Corpuscular HGB Conc 31.5 g/dL (31.6-35.5); Mean Corpuscular Hemoglobin 31.9 pg (28.0-33.3); Mean Corpuscular Volume 101.6 fL (83.0-100.0); Mean Platelet Volume 9.9 fL (9.4-12.4); Monocytes # 0.5 K/mcL (0.0-1.3); Monocytes % 4.7 %; Neutrophils # 8.3 K/mcL (1.6-8.9); Platelet Count 448 K/mcL (140-400); Red Blood Count 3.85 M/mcL (3.82-4.97); Red Cell Distribution Width 13.7 % (11.5-14.5); Segmented Neutrophils % 78.8 %
[2017-11-03 09:48] LABS: VBG HCO3 5 mEq/L (21-27); VBG PCO2 16 mmHg (41-51); VBG PH 7.13 pH Units (7.32-7.42); VBG PO2 147 mmHg (25-50)
[2017-11-03] MEDS ORDERED: *HR* Dextrose 50 % in Water (Syg) 50 ML SYRINGE IVP PRN ×3 (09:51→11:59)
[2017-11-03] MEDS ORDERED: Insulin Regular, Human 100 UNIT/ML IV PRN ×2 (09:51→11:59)
[2017-11-03] MEDS ORDERED: D5% in 0.45% NACL w KCl 20 MEQ/1,000 ML MLS IVC PRN (09:51)
[2017-11-03 09:56] LABS: Magnesium 2.1 mg/dL (1.6-2.6); Phosphorous 5.9 mg/dL (2.7-4.5)
[2017-11-03] MEDS ORDERED: Insulin Human Regular 100 UNIT in 0.9 % Sodium Chloride 100 ML IVC SCH ×2 (10:00→12:00)
[2017-11-03 10:02] LABS: Alanine Aminotransferase 10 Units/L (7-52); Albumin 3.8 g/dL (3.5-5.7); Albumin/Globulin Ratio 1.3 (1.1-2.2); Alkaline Phosphatase 174 Units/L (34-104); Aspartate Amino Transferase 12 Units/L (13-39); BUN/Creatinine Ratio 11 (6-26); Bilirubin,Total 0.3 mg/dL (0.3-1.0); Blood Urea Nitrogen 12 mg/dL (6-20); Calcium 9.1 mg/dL (8.6-10.3); Carbon Dioxide 3 mEq/L (23-29); Chloride 98 mEq/L (98-107); Globulin 2.9 g/dL (2.4-3.5); Glucose 750 mg/dL (70-105); Osmolality,Calculated 312 (280-300); Potassium 6.3 mEq/L (3.5-5.1); Sodium 133 mEq/L (136-145); Total Protein 6.7 g/dL (6.4-8.9); eGFR For African Americans > 60 (> 60); eGFR For Non-African Americans 59 (> 60)
[2017-11-03] MEDS ORDERED: D5% in 0.45% NACL 1,000 ML IVC PRN (10:03)
[2017-11-03] MEDS ORDERED: 0.9 % Sodium Chloride 1,000 ML IVC SCH (10:15)
[2017-11-03 10:18] LABS: Anisocytosis 1+ (Not Present); Platelet Estimate Normal (Normal)
[2017-11-03 10:25] LABS: Bilirubin,Urine Negative (Negative); Blood,Urine Trace (Negative); Clarity,Urine Clear (Clear); Color,Urine Yellow (Yellow); Glucose,Urine (UA) >=1000 mg/dL (Normal); Ketones,Urine >=160 mg/dL (Negative); Leukocyte Esterase,Urine Negative (Negative); Nitrite,Urine Negative (Negative); PH,Urine 5.5 pH Units (5.0-8.0); Protein,Urine 30 mg/dL (Neg-Trace); Urobilinogen,Urine Normal (Normal)
[2017-11-03 10:26] LABS: Bacteria,Urine None Seen per hpf (None-Few); Hyaline Casts,Urine None Seen per lpf (None-Few); RBC,Urine 0-3 per hpf (0-3); Squamous Epithelial Cell,Urine Few per lpf (None-Few); WBC,Urine 0-3 per hpf (0-3)
--- NOTE | 2017-11-03 11:54 | Pulmonology History & Physical ---
<Paco Rivera - Last Filed: 11/03/17 13:35> Date of Encounter: 11/03/17 Time of Encounter: 11:54 Assessment and Plan (1) DKA (diabetic ketoacidoses) Current visit: No Status: Resolved Patient is a known type I diabetic she insulin-dependent does not have an insulin pump. Patient said she has had a cough this most likely secondary to viral illness or patient not being compliant with her insulin. Patient had did have an elevated lactic acid of 5.9. Patient had an anion gap of 32. With a VBG reading a pH of 7.13. Patient's glucose was up over 600. In the emergency Department patient was given 2 L crystalloid fluid as well as started on insulin drip. Start DKA protocol Replenish potassium as needed potassium right now is normal. Patient does not need bicarbonate as pH is greater than 7. Qualifiers: Diabetes mellitus type: type 1 Diabetes mellitus complication detail: without coma Qualified Code(s): E10.10 - Type 1 diabetes mellitus with ketoacidosis without coma (2) Acute viral syndrome Current visit: No Status: Acute Patient does have a cough. Patient is not having a fever here most likely is viral there is no treatment needed at this time. This is most likely what is causing patient's DKA unless patient was noncompliant with her insulin medications which is known to her. No treatment needed at this time we will continue to follow (3) DVT prophylaxis Current visit: No Status: Acute Heparin subcutaneous History of Present Illness Chief complaint: Abdominal pain HPI: Ms. Sierra is a 31 year old female insulin-dependent diabetic presented for evaluation of abdominal pain with concern to being in DKA. Patient does have a known history DKA does not have an insulin pump and does not always stand top of her insulin. She is very known to this hospital for being in DKA. Patient does know profuse vomiting and diarrhea. Says she has had a cough or proximally 2 days. Family at bedside states that she has been compliant with her insulin. Patient states is no chance she is she has her tubes tied. In the emergency Department patient was diagnosed with DKA with anion gap of 32. Patient was started on insulin drip as well as IV fluids. Total of 2 L IV fluid was given. Patient was then transferred to the ICU for further DKA management Past Med Surg Social Fam HX - Past Medical History Medical history: diabetes, GERD, glaucoma, hyperlipidemia, arthritis, hypertension, liver disease, osteoporosis, cirrhosis Additional medical history: detached retina left eye Psychiatric history: anxiety - Past Surgical History Surgical History: appendectomy, , cholecystectomy, sinus surgery, other Additional surgical history: eye surgery - Social History Smoking Status: Never smoker Smokeless Tobacco Status: No Alcohol use: none Drug use: cocaine - Family History Grandmother Family Member Ethnicity: Non- Living Status: Still Living Hx Family Cardiac Disorders: No Hx Family Respiratory Disorders: No Hx Family Cancer: No Hx Family GI Disorders: No Hx Family Endocrine Disorder: Yes (type 2 diabetes) Hx Family Neuromuscular Disorders: No Hx Family Neurologic Disorders: Yes (stroke) Hx Family HEENT Disorders: No Hx Family Autoimmune Disorders: No Medications and Allergies Metoprolol [Lopressor] 25 mg PO BID #60 tablet 12/18/16 [Rx] Sodium Bicarbonate 650 mg PO DAILY 03/09/17 [History] Insulin ASPART [NovoLOG] 10 unit SQ TIDWM PRN #5 vial 03/12/17 [Rx] Insulin Glargine,Hum.rec.anlog [Lantus Solostar] 10 - 20 unit SQ HS 04/23/17 [ History] Lisinopril/Hydrochlorothiazide [Zestoretic 20-12.5 mg Tablet] 1 tab PO DAILY [History] 3 Allergy/AdvReac Type Severity Reaction Status Date / Time hydrocodone Allergy Hives Verified 11/03/17 08:55 All Systems: The remainder of the systems were reviewed and are negative - Constitutional Constitutional: fatigue, weakness, no anorexia, no chills, no daytime sleepiness , no excessive sweating, no frequent falls, no headache(s), no lethargy, no night sweats, no weight gain, no weight loss - EENT Eyes: no loss of peripheral vision Ears: no decreased hearing Nose, mouth and throat: no abnormal hearing, no change in voice, no dizziness, no headache(s), no hoarseness, no nasal discharge, no nasal trauma, no sinus pressure, no throat swelling - Cardiovascular Cardiovascular: lightheadedness, no chest pain, no diaphoresis, no dyspnea, no dyspnea on exertion, no orthopnea, no palpitations - Respiratory Respiratory: cough, no dyspnea, no hemoptysis, no dyspnea on exertion, no wheezing, no snoring, no pain on inspirtation, no chest congestion - Gastrointestinal Gastrointestinal: abdominal pain, diarrhea, loose stools, nausea, vomiting, no cramping - Genitourinary Genitourinary: urinary frequency, no change in urinary stream, no difficulty urinating, no difficulty voiding, no urinary incontinence - Musculoskeletal Musculoskeletal: no weakness, no abnormal gait, no arthralgias, no back pain, no muscle weakness, no myalgias, no neck pain, no numbness - Neurological Neurological: no abnormal gait, no abnormal hearing, no abnormal movements, no abnormal speech, no confusion, no disequilibrium, no focal weakness, no numbness , no radicular pain, no syncope, no tremor(s), no weakness - Psychiatric Psychiatric: no anxiety, no depression - Endocrine Endocrine: no deeping of the voice, no excessive sweating - Hematologic/Lymphatic Hematologic/Lymphatic: no easy bleeding, no lymphadenopathy - Allergic/Immunologic Allergic/Immunologic: no itchy eyes, no wheezing, no GI upset with certain foods Physical Examination Vital Signs: Vital Signs, Last 4 Hours Resp BP 11/03/17 11:43 26 133/73 General appearance: no acute distress Eyes: nonicteric ENT: oropharynx moist Neck: supple Effort: mildly labored Inspection: normal Auscultation: bilateral: clear Cardiovascular: regular rate and rhythm Gastrointestinal: normoactive bowel sounds, soft, non-tender, non-distended Extremities: no cyanosis, no edema, no clubbing Musculoskeletal: no deformities, ROM normal normal mental status, non-focal exam, pupils equal and round, motor strength normal and symmetric Results - Laboratory Findings CBC and BMP: 11/03/17 09:10 11/03/17 12:10 Abnormal lab findings: Abnormal lab results MCV 101.6 fL (83.0-100.0) H 11/03/17 09:10 MCHC 31.5 g/dL (31.6-35.5) L 11/03/17 09:10 Plt Count 448 K/mcL (140-400) H 11/03/17 09:10 Anisocytosis 1+ (Not Present) A 11/03/17 09:10 VBG pH 7.13 pH Units (7.32-7.42) L* 11/03/17 09:38 VBG pCO2 16 mmHg (41-51) L 11/03/17 09:38 VBG pO2 147 mmHg (25-50) H 11/03/17 09:38 VBG HCO3 5 mEq/L (21-27) L 11/03/17 09:38 Sodium 133 mEq/L (136-145) L 11/03/17 09:14 Potassium 6.3 mEq/L (3.5-5.1) H 11/03/17 09:14 Carbon Dioxide 3 mEq/L (23-29) L* 11/03/17 09:14 Est GFR (Non-Af Amer) 59 (> 60) L 11/03/17 09:14 Glucose 750 mg/dL (70-105) H* 11/03/17 09:14 POC Glucose > 600 mg/dL (70-99) H* 11/03/17 10:52 Calculated Osmolality 312 (280-300) H 11/03/17 09:14 Phosphorus 5.9 mg/dL (2.7-4.5) H 11/03/17 09:10 AST 12 Units/L (13-39) L 11/03/17 09:14 Alkaline Phosphatase 174 Units/L (34-104) H 11/03/17 09:14 Beta-Hydroxybutyric Acd > 2.00 mmol/L (0.02-0.27) H 11/03/17 09:10 Urine Protein 30 mg/dL (Neg-Trace) H 11/03/17 10:19 Urine Glucose (UA) >=1000 mg/dL (Normal) H 11/03/17 10:19 Urine Ketones >=160 mg/dL (Negative) H 11/03/17 10:19 Urine Blood Trace (Negative) H 11/03/17 10:19 <Krystyna Gil M - Last Filed: 11/03/17 16:44> Date of Encounter: 11/03/17 History of Present Illness HPI: Ms. Sierra is a 31 year old female All Systems: The remainder of the systems were reviewed and are negative Physical Examination Vital Signs: Vital Signs, Last 4 Hours Temp Resp BP 11/03/17 12:21 97.4 F L 11/03/17 11:43 26 133/73 Results - Laboratory Findings CBC and BMP: 11/03/17 09:10 11/03/17 12:10 Abnormal lab findings: Abnormal lab results MCV 101.6 fL (83.0-100.0) H 11/03/17 09:10 MCHC 31.5 g/dL (31.6-35.5) L 11/03/17 09:10 Plt Count 448 K/mcL (140-400) H 11/03/17 09:10 Anisocytosis 1+ (Not Present) A 11/03/17 09:10 VBG pH 7.13 pH Units (7.32-7.42) L* 11/03/17 09:38 VBG pCO2 16 mmHg (41-51) L 11/03/17 09:38 VBG pO2 147 mmHg (25-50) H 11/03/17 09:38 VBG HCO3 5 mEq/L (21-27) L 11/03/17 09:38 Sodium 133 mEq/L (136-145) L 11/03/17 09:14 Potassium 6.3 mEq/L (3.5-5.1) H 11/03/17 09:14 Carbon Dioxide 3 mEq/L (23-29) L* 11/03/17 09:14 Est GFR (Non-Af Amer) 59 (> 60) L 11/03/17 09:14 Glucose 750 mg/dL (70-105) H* 11/03/17 09:14 POC Glucose > 600 mg/dL (70-99) H* 11/03/17 10:52 Calculated Osmolality 312 (280-300) H 11/03/17 09:14 Phosphorus 5.9 mg/dL (2.7-4.5) H 11/03/17 09:10 AST 12 Units/L (13-39) L 11/03/17 09:14 Alkaline Phosphatase 174 Units/L (34-104) H 11/03/17 09:14 Beta-Hydroxybutyric Acd > 2.00 mmol/L (0.02-0.27) H 11/03/17 09:10 Urine Protein 30 mg/dL (Neg-Trace) H 11/03/17 10:19 Urine Glucose (UA) >=1000 mg/dL (Normal) H 11/03/17 10:19 Urine Ketones >=160 mg/dL (Negative) H 11/03/17 10:19 Urine Blood Trace (Negative) H 11/03/17 10:19 - Attending Attestation I examined this patient and my medical decision-making was reviewed with the Resident Physician. I agree with the documented findings, disposition and treatment plan as described except to the extent set forth below. Patient seen and examined. Labs, radiology, chart personally reviewed. Agree with resident's history and physical, assessment, plan with following comments: TECHNICAL SERVICE REP: Patient follows commands, Pulmonary: Acceptable oxygenation and ventilation Cardiovascular: stable GI: Nutrition per dietary and GI prophylaxis per routine Heme: DVT prophylaxis per routine ID: No obvious infectious source Renal; urine out put and renal funtion reviewed. Monitor electrolytes carefully according to the protocol. Endorcine: blood glucose is monitored. Patient will be treated according to Medicare protocol and she needs to be compliant and needs education. Lines: all lines checked and no evidence of infections Skin: skin care to prevent pressure ulcers per nursing routine care Patient was admitted to ICU for close monitoring due to her metabolic abnormalities from the DKA
[2017-11-03 13:25] LABS: BUN/Creatinine Ratio 11 (6-26); Blood Urea Nitrogen 12 mg/dL (6-20); Calcium 7.8 mg/dL (8.6-10.3); Chloride 110 mEq/L (98-107); Glucose 497 mg/dL (70-105); Osmolality,Calculated 312 (280-300); Sodium 140 mEq/L (136-145); eGFR For African Americans > 60 (> 60); eGFR For Non-African Americans 59 (> 60)
[2017-11-03 13:26] LABS: Carbon Dioxide 5 mEq/L (23-29)
[2017-11-03] MEDS: 0.45 % Sodium Chloride w/KCl 20 MEQ/1,000 ML MLS IVC SCH ×3 (13:31→15:13)
[2017-11-03] MEDS ORDERED: Naloxone 0.4 MG/ML INJ IVP PRN (13:54)
[2017-11-03] MEDS: D5% in 0.45% NACL w KCl 20 MEQ/1,000 ML MLS IVC PRN ×2 (14:00→18:04)
[2017-11-03 14:21] LABS: Estimated Average Glucose 229 mg/dl; Hemoglobin A1C 9.6 %
[2017-11-03] MEDS ORDERED: 0.45 % Sodium Chloride w/KCl 20 MEQ/1,000 ML MLS IVC PRN (15:14)
[2017-11-03 16:52] LABS: BUN/Creatinine Ratio 10 (6-26); Blood Urea Nitrogen 10 mg/dL (6-20); Calcium 7.4 mg/dL (8.6-10.3); Carbon Dioxide 14 mEq/L (23-29); Chloride 113 mEq/L (98-107); Glucose 154 mg/dL (70-105); Osmolality,Calculated 288 (280-300); Potassium 4.2 mEq/L (3.5-5.1); Sodium 138 mEq/L (136-145); eGFR For African Americans > 60 (> 60); eGFR For Non-African Americans > 60 (> 60)
[2017-11-03] MEDS: *HR* Heparin 5,000 UNIT/ML VIAL SQ SCH (18:04)
--- NOTE | 2017-11-03 18:16 | Electrocardiograph Report ---
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
[2017-11-03 21:00] LABS: BUN/Creatinine Ratio 9 (6-26); Blood Urea Nitrogen 8 mg/dL (6-20); Calcium 7.5 mg/dL (8.6-10.3); Carbon Dioxide 17 mEq/L (23-29); Chloride 113 mEq/L (98-107); Glucose 135 mg/dL (70-105); Osmolality,Calculated 286 (280-300); Potassium 4.2 mEq/L (3.5-5.1); Sodium 138 mEq/L (136-145); eGFR For African Americans > 60 (> 60); eGFR For Non-African Americans > 60 (> 60)
[2017-11-04 00:30] LABS: BUN/Creatinine Ratio 8 (6-26); Blood Urea Nitrogen 8 mg/dL (6-20); Calcium 7.7 mg/dL (8.6-10.3); Carbon Dioxide 15 mEq/L (23-29); Chloride 114 mEq/L (98-107); Glucose 75 mg/dL (70-105); Osmolality,Calculated 283 (280-300); Potassium 3.8 mEq/L (3.5-5.1); Sodium 138 mEq/L (136-145); eGFR For African Americans > 60 (> 60); eGFR For Non-African Americans > 60 (> 60)
[2017-11-04] MEDS ORDERED: D5% in Water 1,000 ML IVC PRN ×2 (00:50→10:32)
[2017-11-04] MEDS ORDERED: Dextrose Gel 15 GM/37.5 ML TUBE PO PRN ×2 (00:50→10:32)
[2017-11-04] MEDS ORDERED: Insulin DETEMIR 100 UNIT/ML X5UNITS SQ SCH ×2 (01:00→21:00)
[2017-11-04] MEDS: 0.45 % Sodium Chloride w/KCl 20 MEQ/1,000 ML MLS IVC SCH ×3 (01:39→20:22)
[2017-11-04 04:29] LABS: Basophils % 0.4 %; Eosinophils % 0.1 %; Red Cell Distribution Width 13.9 % (11.5-14.5)
[2017-11-04 04:38] LABS: Hematocrit 28.7 % (35.3-44.9); Hemoglobin 9.1 g/dL (11.5-15.4); Immature Granulocytes % 0.9 % (0-4); Immature Platelets 1.6 % (1.1-6.1); Lymphocytes # 1.8 K/mcL (0.6-4.6); Lymphocytes % 22.1 %; Mean Corpuscular HGB Conc 31.7 g/dL (31.6-35.5); Mean Corpuscular Hemoglobin 30.4 pg (28.0-33.3); Mean Platelet Volume 9.6 fL (9.4-12.4); Monocytes # 0.6 K/mcL (0.0-1.3); Monocytes % 7.2 %; Neutrophils # 5.6 K/mcL (1.6-8.9); Platelet Count 282 K/mcL (140-400); Red Blood Count 2.99 M/mcL (3.82-4.97); Segmented Neutrophils % 69.3 %
[2017-11-04] MEDS: *HR* Heparin 5,000 UNIT/ML VIAL SQ SCH ×2 (04:44→17:00)
[2017-11-04 04:51] LABS: BUN/Creatinine Ratio 9 (6-26); Blood Urea Nitrogen 8 mg/dL (6-20); Calcium 7.8 mg/dL (8.6-10.3); Carbon Dioxide 11 mEq/L (23-29); Chloride 110 mEq/L (98-107); Glucose 169 mg/dL (70-105); Osmolality,Calculated 284 (280-300); Potassium 4.2 mEq/L (3.5-5.1); Sodium 136 mEq/L (136-145); eGFR For African Americans > 60 (> 60); eGFR For Non-African Americans > 60 (> 60)
--- NOTE | 2017-11-04 07:22 | Pulmonology Progress Note ---
<Paco Rivera - Last Filed: 11/04/17 09:40> Date of Encounter: 11/04/17 Time of Encounter: 07:21 Assessment and Plan (1) DKA (diabetic ketoacidoses) Current Visit: No Status: Resolved Patient is a known type I diabetic she insulin-dependent does not have an insulin pump. Patient said she has had a cough this most likely secondary to viral illness or patient not being compliant with her insulin. Patient had did have an elevated lactic acid of 5.9. Patient had an anion gap of 32. With a VBG reading a pH of 7.13. Patient's glucose was up over 600. In the emergency Department patient was given 2 L crystalloid fluid as well as started on insulin drip. Start DKA protocol Replenish potassium as needed potassium right now is normal. Patient does not need bicarbonate as pH is greater than 7. Patient's anion gap has closed as it currently is 8. Patient was started on Levemir long-acting insulin. I by diet was also started. Patient be transferred to the ICU to a medical floor bed. Qualifiers: Diabetes mellitus type: type 1 Diabetes mellitus complication detail: without coma Qualified Code(s): E10.10 - Type 1 diabetes mellitus with ketoacidosis without coma (2) Acute viral syndrome Current Visit: No Status: Acute Patient does have a cough. Patient is not having a fever here most likely is viral there is no treatment needed at this time. This is most likely what is causing patient's DKA unless patient was noncompliant with her insulin medications which is known to her. No treatment needed at this time we will continue to follow Chest x-rays done which had no acute findings, no signs pneumonia, pneumothorax or any sources for infection. (3) DVT prophylaxis Current Visit: No Status: Acute Heparin subcutaneous Subjective Principal diagnosis: DKA Interval history: Patient did well overnight. There are no acute overnight events. Patient's labs, imaging, charts reviewed. Patient had her gap closed so she was stopped on insulin drip and started on Levemir, long acting insulin. Patient is no longer in DKA. We can transfer patient out of the ICU for hospitalist care management. Objective PUL Vital signs: Last Vital Signs Temp 98.0 F 11/04/17 03:53 Pulse 108 11/04/17 06:00 Resp 18 11/04/17 06:00 BP 116/78 11/04/17 06:00 Pulse Ox 99 11/04/17 06:00 General appearance: no acute distress, alert Eyes: nonicteric ENT: oropharynx moist Neck: supple Effort: normal Auscultation: bilateral: clear Cardiovascular: regular rate and rhythm Gastrointestinal: normoactive bowel sounds, non-distended Integumentary: normal Extremities: no cyanosis, no edema, no clubbing Musculoskeletal: no deformities, ROM normal normal mental status, non-focal exam, pupils equal and round, motor strength normal and symmetric Results - Laboratory Findings CBC and BMP: 11/04/17 04:10 11/04/17 08:51 Abnormal lab findings: Abnormal lab results RBC 2.99 M/mcL (3.82-4.97) L 11/04/17 04:10 Hgb 9.1 g/dL (11.5-15.4) L D 11/04/17 04:10 Hct 28.7 % (35.3-44.9) L 11/04/17 04:10 Anisocytosis 1+ (Not Present) A 11/03/17 09:10 VBG pH 7.13 pH Units (7.32-7.42) L* 11/03/17 09:38 VBG pCO2 16 mmHg (41-51) L 11/03/17 09:38 VBG pO2 147 mmHg (25-50) H 11/03/17 09:38 VBG HCO3 5 mEq/L (21-27) L 11/03/17 09:38 Chloride 110 mEq/L (98-107) H 11/04/17 04:10 Carbon Dioxide 11 mEq/L (23-29) L 11/04/17 04:10 Glucose 169 mg/dL (70-105) H 11/04/17 04:10 POC Glucose 60 mg/dL (70-99) L 11/04/17 01:04 Hemoglobin A1c 9.6 % (-5.6) H 11/03/17 09:10 Calcium 7.8 mg/dL (8.6-10.3) L 11/04/17 04:10 Phosphorus 5.9 mg/dL (2.7-4.5) H 11/03/17 09:10 AST 12 Units/L (13-39) L 11/03/17 09:14 Alkaline Phosphatase 174 Units/L (34-104) H 11/03/17 09:14 Beta-Hydroxybutyric Acd > 2.00 mmol/L (0.02-0.27) H 11/03/17 09:10 Urine Protein 30 mg/dL (Neg-Trace) H 11/03/17 10:19 Urine Glucose (UA) >=1000 mg/dL (Normal) H 11/03/17 10:19 Urine Ketones >=160 mg/dL (Negative) H 11/03/17 10:19 Urine Blood Trace (Negative) H 11/03/17 10:19 - Clinical Findings Intake & Output: Intake & Output 11/03/17 11/03/17 11/04/17 15:59 23:59 07:59 Intake Total 2028 1169.2 / 1169.2 1005 / 1005 Output Total 650 / 650 875 / 875 650 / 650 Balance -621 / 1379 294.2 / 294.2 355 / 355 Weight 48.5 kg 47.5 kg Consult Discharge Plan - Plan Referrals: Zehra Jamison, DAVID [Primary Care Provider] - <Krystyna Gil - Last Filed: 11/04/17 10:58> Date of Encounter: 11/04/17 Objective PUL Vital signs: Last Vital Signs Temp 98.0 F 11/04/17 08:00 Pulse 108 11/04/17 10:33 Resp 12 11/04/17 10:33 BP 118/86 11/04/17 10:33 Pulse Ox 100 11/04/17 10:33 Results - Laboratory Findings CBC and BMP: 11/04/17 04:10 11/04/17 08:51 Abnormal lab findings: Abnormal lab results RBC 2.99 M/mcL (3.82-4.97) L 11/04/17 04:10 Hgb 9.1 g/dL (11.5-15.4) L D 11/04/17 04:10 Hct 28.7 % (35.3-44.9) L 11/04/17 04:10 Anisocytosis 1+ (Not Present) A 11/03/17 09:10 VBG pH 7.13 pH Units (7.32-7.42) L* 11/03/17 09:38 VBG pCO2 16 mmHg (41-51) L 11/03/17 09:38 VBG pO2 147 mmHg (25-50) H 11/03/17 09:38 VBG HCO3 5 mEq/L (21-27) L 11/03/17 09:38 Chloride 109 mEq/L (98-107) H 11/04/17 08:51 Carbon Dioxide 19 mEq/L (23-29) L 11/04/17 08:51 POC Glucose 60 mg/dL (70-99) L 11/04/17 01:04 Hemoglobin A1c 9.6 % (-5.6) H 11/03/17 09:10 Calcium 8.0 mg/dL (8.6-10.3) L 11/04/17 08:51 Phosphorus 5.9 mg/dL (2.7-4.5) H 11/03/17 09:10 AST 12 Units/L (13-39) L 11/03/17 09:14 Alkaline Phosphatase 174 Units/L (34-104) H 11/03/17 09:14 Beta-Hydroxybutyric Acd > 2.00 mmol/L (0.02-0.27) H 11/03/17 09:10 Urine Protein 30 mg/dL (Neg-Trace) H 11/03/17 10:19 Urine Glucose (UA) >=1000 mg/dL (Normal) H 11/03/17 10:19 Urine Ketones >=160 mg/dL (Negative) H 11/03/17 10:19 Urine Blood Trace (Negative) H 11/03/17 10:19 - Clinical Findings Intake & Output: Intake & Output 11/03/17 11/04/17 11/04/17 23:59 07:59 15:59 Intake Total 1169.2 / 1169.2 1005 / 1005 Output Total 875 / 875 650 / 650 300 / 300 Balance 294.2 / 294.2 355 / 355 -300 / -300 Weight 47.5 kg - Attending Attestation I examined this patient and my medical decision-making was reviewed with the Resident Physician. I agree with the documented findings, disposition and treatment plan as described except to the extent set forth below. Patient seen and examined. Labs, radiology, chart personally reviewed. Agree with resident's history and physical, assessment, plan with following comments: [employer]: Patient follows commands, Pulmonary: Acceptable oxygenation and ventilation Cardiovascular: stable GI: Nutrition per dietary and GI prophylaxis per routine Heme: DVT prophylaxis per routine Renal; urine out put and renal funtion reviewed Endorcine: blood glucose is monitored. Patient has been transitioned to subcutaneous insulin and oral diet. Follow-up with primary care on patient is discharged and compliancy is important. Lines: all lines checked and no evidence of infections Skin: skin care to prevent pressure ulcers per nursing routine care Patient to be transferred to the floor.
[2017-11-04] MEDS ORDERED: Insulin LISPRO 300 UNITS/3 ML VIAL SQ SCH (07:30)
[2017-11-04 09:22] LABS: BUN/Creatinine Ratio 8 (6-26); Blood Urea Nitrogen 7 mg/dL (6-20); Carbon Dioxide 19 mEq/L (23-29); Chloride 109 mEq/L (98-107); Glucose 101 mg/dL (70-105); Osmolality,Calculated 280 (280-300); Potassium 3.7 mEq/L (3.5-5.1); Sodium 136 mEq/L (136-145); eGFR For African Americans > 60 (> 60); eGFR For Non-African Americans > 60 (> 60)
[2017-11-04] MEDS ORDERED: *HR* Dextrose 50 % in Water (Syg) 50 ML SYRINGE IVP PRN (10:32)
[2017-11-04] MEDS ORDERED: Naloxone 0.4 MG/ML INJ IVP PRN (10:32)
[2017-11-04] MEDS ORDERED: 0.45 % Sodium Chloride w/KCl 20 MEQ/1,000 ML MLS IVC SCH (10:32)
[2017-11-04] MEDS: Insulin LISPRO 300 UNITS/3 ML VIAL SQ SCH ×2 (12:30→17:00)
[2017-11-04] MEDS ORDERED: Ondansetron 4 MG/2 ML VIAL IVP PRN (18:00)
[2017-11-04] MEDS ORDERED: Prochlorperazine 10 MG/2 ML VIAL IVP PRN (20:01)
[2017-11-05 03:45] LABS: Basophils # 0.1 K/mcL (0.0-0.2); Basophils % 1.1 %; Eosinophils # 0.1 K/mcL (0.0-0.6); Eosinophils % 1.3 %; Hematocrit 27.1 % (35.3-44.9); Immature Granulocytes % 0.2 % (0-4); Lymphocytes # 1.9 K/mcL (0.6-4.6); Lymphocytes % 39.4 %; Mean Corpuscular HGB Conc 33.2 g/dL (31.6-35.5); Mean Corpuscular Hemoglobin 30.9 pg (28.0-33.3); Mean Corpuscular Volume 93.1 fL (83.0-100.0); Mean Platelet Volume 9.2 fL (9.4-12.4); Monocytes # 0.4 K/mcL (0.0-1.3); Monocytes % 7.6 %; Neutrophils # 2.4 K/mcL (1.6-8.9); Platelet Count 223 K/mcL (140-400); Red Blood Count 2.91 M/mcL (3.82-4.97); Red Cell Distribution Width 13.9 % (11.5-14.5); Segmented Neutrophils % 50.4 %
[2017-11-05 04:04] LABS: BUN/Creatinine Ratio 8 (6-26); Blood Urea Nitrogen 7 mg/dL (6-20); Calcium 8.6 mg/dL (8.6-10.3); Carbon Dioxide 18 mEq/L (23-29); Chloride 111 mEq/L (98-107); Glucose 114 mg/dL (70-105); Osmolality,Calculated 281 (280-300); Sodium 136 mEq/L (136-145); eGFR For African Americans > 60 (> 60); eGFR For Non-African Americans > 60 (> 60)
[2017-11-05] MEDS: 0.45 % Sodium Chloride w/KCl 20 MEQ/1,000 ML MLS IVC SCH (05:44)
[2017-11-05] MEDS: *HR* Heparin 5,000 UNIT/ML VIAL SQ SCH (05:44)
[2017-11-05 07:47] VITALS: BP 135/91
[2017-11-05] MEDS: Insulin LISPRO 300 UNITS/3 ML VIAL SQ SCH ×2 (08:10→11:38)
--- NOTE | 2017-11-05 09:51 | Discharge Summary ---
- NOTES TO OUTPATIENT PROVIDER Notes to Outpatient Provider: Patient with history of insulin-dependent diabetes was hospitalized with DKA. Patient had been having nausea or vomiting and diarrhea prior to her admission. She was placed on DKA protocol in the ICU and her given IV insulin and fluids. DKA has resolved now. Patient has been transferred to the floor and she is tolerating diabetic diet well. She is on subcutaneous insulin. She is stable to be discharged home. Will follow up with her primary care provider for further management. Orders not resulted at time of discharge: Pending orders 11/06/17 04:00 Basic Metabolic Panel AM 0400 Complete Blood Count [HEME] AM 0400 11/07/17 04:00 Basic Metabolic Panel AM 0400 Complete Blood Count [HEME] AM 0400 Date of Encounter: 11/05/17 Time of Encounter: 09:48 - Discharge Diagnosis (1) DKA (diabetic ketoacidoses) Priority: Primary Status: Acute Qualifiers: Diabetes mellitus type: other specified (including CLARENCE) Diabetes mellitus complication detail: without coma Qualified Code(s): E13.10 - Other specified diabetes mellitus with ketoacidosis without coma (2) Acute viral syndrome Priority: Secondary Status: Acute (3) DVT prophylaxis Priority: Secondary Status: Acute Hospital course: Ms. Sierra is a 31 year old female Patient with history of insulin-dependent diabetes was hospitalized with DKA. Patient had been having nausea or vomiting and diarrhea prior to her admission. She was placed on DKA protocol in the ICU and given IV insulin and fluids. DKA has resolved now. Patient has been transferred to the floor and she is tolerating diabetic diet well. She is on subcutaneous insulin. She is stable to be discharged home. Will follow up with her primary care provider for further management. She is a suspected of having acute viral syndrome with nausea and vomiting prior to presentation. This seems to have resolved now. She may have underlying diabetic gastroparesis and I am prescribing her Reglan to use as needed for nausea and emesis at home. Discharge discussed with: patient, nurse - Time Spent with Patient Total time spent providing and/or coordinating discharge services: Less than 30 minutes (25 min) - Discharge Medications Prescriptions: Metoclopramide HCl 5 mg PO TID PRN #30 tablet PRN Reason: Nausea Home Medications: Metoprolol [Lopressor] 25 mg PO BID #60 tablet 12/18/16 [Rx] Sodium Bicarbonate 650 mg PO DAILY 03/09/17 [History] Insulin ASPART [NovoLOG] 10 unit SQ TIDWM PRN #5 vial 03/12/17 [Rx] Insulin Glargine,Hum.rec.anlog [Lantus Solostar] 10 - 20 unit SQ HS 04/23/17 [ History] Lisinopril/Hydrochlorothiazide [Zestoretic 20-12.5 mg Tablet] 1 tab PO DAILY [History] Metoclopramide HCl 5 mg PO TID PRN #30 tablet 11/05/17 [Rx] Allergies/Adverse Reactions: 3 Allergy/AdvReac Type Severity Reaction Status Date / Time hydrocodone Allergy Hives Verified 11/03/17 08:55 Date of admission: 11/03/17 11:27 Primary care physician: Zehra Jamison Discharging clinician: Lila Ortiz Anticipated date of discharge: 11/05/17 - Constitutional Vitals: Temp Pulse Resp BP Pulse Ox 97.9 F 101 17 135/91 99 11/05/17 07:45 11/05/17 07:45 11/05/17 07:45 11/05/17 07:45 11/05/17 07:45 General appearance: Present: cooperative, A&O X 3, answers questions appropriately - Respiratory Respiratory exam: Present: CTAB. Absent: accessory muscle use, rales, rhonchi, wheezes - Cardiovascular Cardiovascular exam: Present: RRR, +S1, +S2. Absent: diastolic murmur, gallop, rubs, systolic murmur - GI/Abdominal GI/Abdominal exam: Present: normal bowel sounds, soft, no peritoneal signs. Absent: distended, tenderness - Extremities Exam Extremities exam: Present: warm, radial pulses palpable and symmetrical. Absent : calf tenderness, cyanotic, pedal edema - Patient Status Disposition: Home, Self-Care Condition: Good Functional capacity at discharge: independent ambulation Overall status at discharge: patient is progressing back to baseline - Discharge Instructions Instructions: Diabetes Mellitus Type 2 in Adults (DC) Follow Up With: Zehra Jamison CNP [Primary Care Provider] - - Diet and Activity Activity: increase activity as tolerated Diet: diabetic diet
== END 2017-11-05 11:54 | disposition home or self-care (01) | DRG 420 ==
LOC: EMEROO 08:52 → SUATTDRO 11:27 → ICNU 11:27 → 2ANU 11-04 14:17
PROVIDERS: ADMIT Internal Medicine Pulmonary Disease; ATTEND Internal Medicine

== ENCOUNTER 2017-12-10 06:20 | Inpatient (IN) ==
[2017-12-10] MEDS ORDERED: 0.9 % Sodium Chloride 2,000 ML ONE (06:55)
[2017-12-10] MEDS ORDERED: *HR* Dextrose 50 % in Water (Syg) 50 ML SYRINGE IVP PRN ×2 (07:03→10:45)
--- NOTE | 2017-12-10 07:08 | Emergency Department Note ---
Disposition Clinical Impression: Unresponsive, Hyperglycemia, DKA, type 1 Disposition: Still a Patient Condition: Critical Forms: ED Satisfaction Letter, Work/School Release General Adult HPI - General Chief complaint: ED General Medical Time Seen by Provider: 12/10/17 06:59 Source: EMS Limitations: no limitations - History of Present Illness Pain Scale: 0 Past Medical History - Past Medical History Medical history: Reports: diabetes - Social History Smoking Status: Unknown if ever smoked Alcohol use: Reports: unknown Drug use: Reports: unknown Physical Exam - General Limitations: no limitations Course Vital Signs Temperature 93.2 F L 12/10/17 06:22 Pulse Rate 121 12/10/17 06:22 Respiratory Rate 40 12/10/17 06:22 Blood Pressure 90/49 12/10/17 06:22 O2 Sat by Pulse Oximetry 100 12/10/17 06:22 Temperature 93.2 F L 12/10/17 06:22 Pulse Rate 121 12/10/17 06:22 Respiratory Rate 40 12/10/17 06:22 Blood Pressure 90/49 12/10/17 06:22 O2 Sat by Pulse Oximetry 100 12/10/17 06:22 Oxygen Delivery Oxygen Delivery Room Air Critical Care Time Critical Care Time: Yes Total Critical Care Time: 40 Attestation: Critical care performed: Time is exclusive of separately billable procedures. Time includes: direct patient care, patient reassessment, coordination of patient care, interpretation of data (laboratory data, radiology data, and respiratory data), review of patient's medical records, medical consultation and documentation of patient care. Procedures included in critical care time: Procedures excluded from critical care time: Attestation Statement - Attestation Attestation: I, Tavares Bear MD, personally evaluated this patient and discussed their management with the resident physician. I reviewed the resident's note and agree with the documented findings, medical decision making, and plan of care. Female patient presented to the emergency department by EMS unresponsive. Patient appears to be approximately 29 years old. The only known history is that she is diabetic. Paramedics report they picked her up and had a "drug house ". Patient received Narcan 1.5 mg with no response. On arrival here patient is unresponsive with rapid deep respirations. On examination patient is a well-developed thin female. She is unresponsive to painful stimuli. Pupils are dilated and nonreactive. Mucous membranes are dry. Patient has rapid deep respirations. Heart is tachycardic and regular. Abdomen is soft with present bowel sounds. No obvious signs of trauma. A right central IJ line was attempted but unsuccessful. Did establish a right EJ IV access with an 18-gauge. Patient is protecting her airway at this time. Patient received an additional 2 mg of Narcan IV here with no response. At shift change patient is signed out to the oncoming dayshift team, Dr. Yenifer Arellano and Dr. Muñiz.
[2017-12-10] MEDS ORDERED: Insulin Regular, Human 100 UNIT/ML SQ ONE (07:12)
--- NOTE | 2017-12-10 07:13 | Emergency Department Note ---
Disposition Clinical Impression: Unresponsive, Hyperglycemia, DKA, type 1 Disposition: Still a Patient Condition: Critical Forms: ED Satisfaction Letter, Work/School Release General Adult HPI - General Chief complaint: ED General Medical Time Seen by Provider: 12/10/17 06:59 Source: EMS Limitations: no limitations Nursing Notes Reviewed: Yes Vital Signs Reviewed: Yes - History of Present Illness HPI Narrative: Unknown female presents from scene via EMS for unresponsiveness. Patient was picked up at a location known to contain illicit substances. She was given 1.5 mg intravenous Narcan with no response. She is a known type I diabetic. History otherwise unobtainable. Review of systems not obtainable secondary to patient's mental status medical condition. Pain Scale: 0 Limitations: ROS unobtainable due to patients medical condition Past Medical History - Past Medical History Medical history: Reports: diabetes - Social History Smoking Status: Unknown if ever smoked Alcohol use: Reports: unknown Drug use: Reports: unknown Physical Exam Vital Signs Reviewed General: Patient is not alert. Eyes closed. She is protecting her airway and saturating 98-99% on room air. Head: atraumatic, normocephalic Eye: normal appearance, pupils 4 mm, equally round, non-responsive to light. no scleral icterus, no conjunctival injection ENT: mucous membranes dry, normal external ear exam Neck: normal inspection, trachea midline, full ROM Chest: normal inspection, symmetric chest rise Respiratory: Kussmaul respiratory pattern. Tachypnea. Breath sounds equal bilaterally with good air entry to the base. No wheeze, crackles, rhonchi. Cardiovascular: Regular rate and rhythm. No clicks, rubs, gallops, or murmors. Normal heart sounds. Bilateral radial posterior tibial pulses palpable. Hands and feet cool. Abdomen: Bowel sounds present normoactive x-4 quadrants. Abdomen is soft, nondistended. Unable to ascertain tenderness secondary to patient's obtunded state. No organomegaly noted. Musculoskeletal: Spontaneously moving all extremities. Skin: dry, intact. Neuro: GCS 7 (E1, V2, M4). Some movement with extremity flexion to aggressive sternal rub. Psych: Patient's affect is appropriate for situation. - General Limitations: no limitations Course Course Narrative: Known type I diabetic. Unresponsive other than some flexion to deep sternal rub. No improvement in response to an additional 2 mg IV Narcan (3.5 mg IV total ). Poor vascular access; unable to obtain peripheral access. Attempted right IJ CVC however, patient's head movement while multiple successful venous access with needle. 18-gauge right external jugular was obtained. IV fluids started. DKA labs ordered. Also added overdose labs though, clinically, her presentation is more consistent with DKA. CT head pending. Patient is hypothermic. Keeping covered with warm blankets and Abhilash Hugger. Will place temperature probe. IV insulin pending initial fluid boluses. Patient signed out to the day team, Dr. Muñiz and Dr. My Arellano. All lab work pending. Patient will need ICU admission. Vital Signs Temperature 93.2 F L 12/10/17 06:22 Pulse Rate 121 12/10/17 06:22 Respiratory Rate 40 12/10/17 06:22 Blood Pressure 90/49 12/10/17 06:22 O2 Sat by Pulse Oximetry 100 12/10/17 06:22 Temperature 93.2 F L 12/10/17 06:22 Pulse Rate 121 12/10/17 06:22 Respiratory Rate 40 12/10/17 06:22 Blood Pressure 90/49 12/10/17 06:22 O2 Sat by Pulse Oximetry 100 12/10/17 06:22 Oxygen Delivery Oxygen Delivery Room Air
[2017-12-10] MEDS ORDERED: 0.9 % Sodium Chloride 1,000 ML IVC SCH (07:15)
--- NOTE | 2017-12-10 07:15 | Emergency Department Note ---
Disposition Clinical Impression: Unresponsive, Hyperglycemia, DKA, type 1 Disposition: Still a Patient Condition: Critical General Adult HPI - General Chief complaint: ED General Medical Time Seen by Provider: 12/10/17 06:59 Source: EMS Limitations: no limitations Nursing Notes Reviewed: Yes Vital Signs Reviewed: Yes - History of Present Illness Pain Scale: 0 - Related Data Home Medications Medication Instructions Recorded Confirmed Insulin ASPART [Novolog Flexpen] 0 units SQ TIDWM 12/10/17 12/10/17 Insulin Glargine,Hum.rec.anlog 30 unit SQ HS 12/10/17 12/10/17 [Lantus Solostar] Promethazine [Phenergan] 25 mg PO BID PRN 12/10/17 12/10/17 Allergies Allergy/AdvReac Type Severity Reaction Status Date / Time acetaminophen [From [place]] Allergy Hives Verified 12/10/17 09:12 hydrocodone [From [place]] Allergy Hives Verified 12/10/17 09:12 Past Medical History - Past Medical History Medical history: Reports: diabetes - Social History Smoking Status: Unknown if ever smoked Alcohol use: Reports: unknown Drug use: Reports: unknown Physical Exam - General Limitations: no limitations Course Vital Signs Temperature 93.2 F L 12/10/17 06:22 Pulse Rate 121 12/10/17 06:22 Respiratory Rate 40 12/10/17 06:22 Blood Pressure 90/49 12/10/17 06:22 O2 Sat by Pulse Oximetry 100 12/10/17 06:22 Temperature 93.5 F L 12/10/17 09:52 Pulse Rate 131 12/10/17 09:52 Respiratory Rate 20 12/10/17 09:52 Blood Pressure 110/68 12/10/17 09:52 O2 Sat by Pulse Oximetry 100 12/10/17 09:52 Oxygen Delivery Oxygen Delivery Ventilator Medical Decision Making - [facility] Narrative Medical decision making narrative: 0810 hrs.: Patient's white count is elevated. I do not see signs of infection. This could all be ED margination but will cover antibiotics also choosing Zosyn and vancomycin. Her family is here and is identified her. She is no longer listed as a Magaly Fu. She has had a history of DKA in the past and drug abuse. She has an elevated BUN/creatinine. Elevated potassium pressure blood sugar is over thousand. She has insulin going her sugar is high she said 2 A of bicarbonate due to high potassium along with the high QRS wide. Patient's cardiac calcium. And then waiting on CT read. Ordinary go ahead and electively intubate her also. Due to her critical nature. And then ICU admission versus transfer. 900 hours: Patient was successfully intubated using a 7 ET tube. She was sedated with Versed and rocuronium. Confirmed with end-tidal CO2 and chest x- ray. Chest x-ray showed the tube. A 2 cm far on the right so that was pulled back 2 cm. She had an NG tube placed and has dark-colored emesis. And history of GI bleeding. Hemoglobin is 2 points lower than last week started on Protonix. We will type and screen her. We did a femoral stick on due to difficulty getting blood access was able to get blood for blood cultures. They are in upper midline in her also. We will get her admitted to the ICU. Impression is DKA with metabolic acidosis, leukocytosis rule out infection source and sepsis. We have updated her family. Head CT 12/10/17 07:12 IMPRESSION: No acute intracranial abnormality. Unchanged basal ganglia and thalamic calcification compatible with thyroid/parathyroid disease. D/ / Finn Neves MD / Finn Neves MD Interpreting Provider: Finn Neves MD 0955 hours: Patient's been accepted by [facility]. Patient increased that rate. And also 2 more amps of bicarbonate. Patient had Protonix running. Had the nurse go and put a midline in. To have an additional IV access. - Lab Data Result diagrams: 12/10/17 07:00 12/10/17 07:00 Lab Results 12/10/17 12/10/17 12/10/17 Range/Units 07:00 07:00 07:00 WBC 26.8 H (4.3-11.1) K/mcL RBC 3.38 L (3.82-4.97) M/mcL Hgb 10.8 L (11.5-15.4) g/dL Hct 37.0 (35.3-44.9) % MCV 109.5 H (83.0-100.0) fL MCH 32.0 (28.0-33.3) pg MCHC 29.2 L (31.6-35.5) g/dL RDW 13.2 (11.5-14.5) % Plt Count 604 H (140-400) K/mcL MPV 10.4 (9.4-12.4) fL Immature Gran % 1.2 (0-4) % Seg Neutrophils % 78.3 % Lymphocytes % 12.4 % Monocytes % 7.2 % Eosinophils % 0.3 % Basophils % 0.6 % Neutrophils # 21.0 H (1.6-8.9) K/mcL Lymphocytes # 3.3 (0.6-4.6) K/mcL Monocytes # 1.9 H (0.0-1.3) K/mcL Eosinophils # 0.1 (0.0-0.6) K/mcL Basophils # 0.2 (0.0-0.2) K/mcL Platelet Estimate Increased H (Normal) Immature Plt Fraction 1.9 (1.1-6.1) % Sample Site ABG pH (7.32-7.45) pH Units ABG pCO2 (35-45) mmHg ABG pO2 (85-104) mmHg ABG HCO3 ABG Total CO2 ABG O2 Saturation ABG Base Excess Sheldon Test Respiration Rate O2 Delivery Device Blood Gas Modality Inspired O2 (1-15=lpm [id number]=%) Tidal Volume cc PEEP cm H2O Sodium 128 L (136-145) mEq/L Potassium 7.5 H* (3.5-5.1) mEq/L Chloride 92 L (98-107) mEq/L Carbon Dioxide 3 L* (23-29) mEq/L BUN 26 H (6-20) mg/dL Creatinine 2.00 H (0.60-1.20) mg/dL Est GFR ( Amer) 35 L (> 60) Est GFR (Non-Af Amer) 29 L (> 60) BUN/Creatinine Ratio 13 (6-26) Glucose 1287 H* (70-105) mg/dL Calculated Osmolality 337 H (280-300) Lactic Acid (0.5-2.2) mmol/L Calcium 8.1 L (8.6-10.3) mg/dL Phosphorus 9.5 H (2.7-4.5) mg/dL Magnesium 2.7 H (1.6-2.6) mg/dL Total Bilirubin 0.3 (0.3-1.0) mg/dL Direct Bilirubin 0.1 (0.0-0.2) mg/dL Indirect Bilirubin 0.2 (0.0-1.2) mg/dL AST 19 (13-39) Units/L ALT 17 (7-52) Units/L Alkaline Phosphatase 213 H (34-104) Units/L Troponin I < 0.03 (< 0.04) ng/mL Serum Total Protein 5.9 L (6.4-8.9) g/dL Albumin 3.3 L (3.5-5.7) g/dL Globulin 2.6 (2.4-3.5) g/dL Albumin/Globulin Ratio 1.3 (1.1-2.2) Beta-Hydroxybutyric Acd > 2.00 H (0.02-0.27) mmol/L Beta HCG, Quant 1 (Less than 5) mIU/mL Urine Color (Yellow) Urine Clarity (Clear) Urine pH (5.0-8.0) pH Units Ur Specific [place] (1.010-1.025) Urine Protein (Neg-Trace) mg/dL Urine Glucose (UA) (Normal) mg/dL Urine Ketones (Negative) mg/dL Urine Blood (Negative) Urine Nitrite (Negative) Urine Bilirubin (Negative) Urine Urobilinogen (Normal) mg/dL Ur Leukocyte Esterase (Negative) Urine Microscopic RBC (0-3) per hpf Urine Microscopic WBC (0-3) per hpf Urine Bacteria (None-Few) per hpf Salicylates < 2.5 L (15.0-30.0) mg/dL Urine Opiates Screen (Dljrvw=277) ng/mL Acetaminophen < 10 L (10-20) mcg/mL Ur Barbiturates Screen (Svdulp=960) ng/mL Ur Phencyclidine Scrn (Cutoff=25) ng/mL Ur Amphetamines Screen (Czvrto=7691) ng/mL U Benzodiazepines Scrn (Mrofik=845) ng/mL Urine Cocaine Screen (Cutoff= 300) ng/mL U Marijuana (THC) Screen (Cutoff = 50) ng/mL Ur Drug Screen Interp Ethyl Alcohol < 10 (Less than 10) mg/dL 12/10/17 12/10/17 12/10/17 Range/Units 07:00 07:20 07:24 WBC (4.3-11.1) K/mcL RBC (3.82-4.97) M/mcL Hgb (11.5-15.4) g/dL Hct (35.3-44.9) % MCV (83.0-100.0) fL MCH (28.0-33.3) pg MCHC (31.6-35.5) g/dL RDW (11.5-14.5) % Plt Count (140-400) K/mcL MPV (9.4-12.4) fL Immature Gran % (0-4) % Seg Neutrophils % % Lymphocytes % % Monocytes % % Eosinophils % % Basophils % % Neutrophils # (1.6-8.9) K/mcL Lymphocytes # (0.6-4.6) K/mcL Monocytes # (0.0-1.3) K/mcL Eosinophils # (0.0-0.6) K/mcL Basophils # (0.0-0.2) K/mcL Platelet Estimate (Normal) Immature Plt Fraction (1.1-6.1) % Sample Site R Radial ABG pH 6.94 L* (7.32-7.45) pH Units ABG pCO2 < 13 L* (35-45) mmHg ABG pO2 149 H (85-104) mmHg ABG HCO3 TNP ABG Total CO2 TNP ABG O2 Saturation TNP ABG Base Excess TNP Sheldon Test Positive Respiration Rate O2 Delivery Device Room Air Blood Gas Modality Inspired O2 21.0 (1-15=lpm [id number]=%) Tidal Volume cc PEEP cm H2O Sodium (136-145) mEq/L Potassium (3.5-5.1) mEq/L Chloride (98-107) mEq/L Carbon Dioxide (23-29) mEq/L BUN (6-20) mg/dL Creatinine (0.60-1.20) mg/dL Est GFR ( Amer) (> 60) Est GFR (Non-Af Amer) (> 60) BUN/Creatinine Ratio (6-26) Glucose (70-105) mg/dL Calculated Osmolality (280-300) Lactic Acid 4.3 H* (0.5-2.2) mmol/L Calcium (8.6-10.3) mg/dL Phosphorus (2.7-4.5) mg/dL Magnesium (1.6-2.6) mg/dL Total Bilirubin (0.3-1.0) mg/dL Direct Bilirubin (0.0-0.2) mg/dL Indirect Bilirubin (0.0-1.2) mg/dL AST (13-39) Units/L ALT (7-52) Units/L Alkaline Phosphatase (34-104) Units/L Troponin I (< 0.04) ng/mL Serum Total Protein (6.4-8.9) g/dL Albumin (3.5-5.7) g/dL Globulin (2.4-3.5) g/dL Albumin/Globulin Ratio (1.1-2.2) Beta-Hydroxybutyric Acd (0.02-0.27) mmol/L Beta HCG, Quant (Less than 5) mIU/mL Urine Color (Yellow) Urine Clarity (Clear) Urine pH (5.0-8.0) pH Units Ur Specific [place] (1.010-1.025) Urine Protein (Neg-Trace) mg/dL Urine Glucose (UA) (Normal) mg/dL Urine Ketones (Negative) mg/dL Urine Blood (Negative) Urine Nitrite (Negative) Urine Bilirubin (Negative) Urine Urobilinogen (Normal) mg/dL Ur Leukocyte Esterase (Negative) Urine Microscopic RBC (0-3) per hpf Urine Microscopic WBC (0-3) per hpf Urine Bacteria (None-Few) per hpf Salicylates (15.0-30.0) mg/dL Urine Opiates Screen Negative (Pfcmri=917) ng/mL Acetaminophen (10-20) mcg/mL Ur Barbiturates Screen Negative (Zljrhv=936) ng/mL Ur Phencyclidine Scrn Negative (Cutoff=25) ng/mL Ur Amphetamines Screen Negative (Epamdn=6278) ng/mL U Benzodiazepines Scrn Negative (Rexpuo=503) ng/mL Urine Cocaine Screen Negative (Cutoff= 300) ng/mL U Marijuana (THC) Screen Negative (Cutoff = 50) ng/mL Ur Drug Screen Interp See Below Ethyl Alcohol (Less than 10) mg/dL 12/10/17 12/10/17 Range/Units 07:24 09:11 WBC (4.3-11.1) K/mcL RBC (3.82-4.97) M/mcL Hgb (11.5-15.4) g/dL Hct (35.3-44.9) % MCV (83.0-100.0) fL MCH (28.0-33.3) pg MCHC (31.6-35.5) g/dL RDW (11.5-14.5) % Plt Count (140-400) K/mcL MPV (9.4-12.4) fL Immature Gran % (0-4) % Seg Neutrophils % % Lymphocytes % % Monocytes % % Eosinophils % % Basophils % % Neutrophils # (1.6-8.9) K/mcL Lymphocytes # (0.6-4.6) K/mcL Monocytes # (0.0-1.3) K/mcL Eosinophils # (0.0-0.6) K/mcL Basophils # (0.0-0.2) K/mcL Platelet Estimate (Normal) Immature Plt Fraction (1.1-6.1) % Sample Site ABG pH 6.90 L* (7.32-7.45) pH Units ABG pCO2 19 L* (35-45) mmHg ABG pO2 180 H (85-104) mmHg ABG HCO3 4 L ABG Total CO2 4 L ABG O2 Saturation 98 ABG Base Excess -28 L Sheldon Test Respiration Rate 12 O2 Delivery Device Adult Vent Blood Gas Modality AF Inspired O2 35.0 (1-15=lpm [id number]=%) Tidal Volume 400 cc PEEP 5 cm H2O Sodium (136-145) mEq/L Potassium (3.5-5.1) mEq/L Chloride (98-107) mEq/L Carbon Dioxide (23-29) mEq/L BUN (6-20) mg/dL Creatinine (0.60-1.20) mg/dL Est GFR ( Amer) (> 60) Est GFR (Non-Af Amer) (> 60) BUN/Creatinine Ratio (6-26) Glucose (70-105) mg/dL Calculated Osmolality (280-300) Lactic Acid (0.5-2.2) mmol/L Calcium (8.6-10.3) mg/dL Phosphorus (2.7-4.5) mg/dL Magnesium (1.6-2.6) mg/dL Total Bilirubin (0.3-1.0) mg/dL Direct Bilirubin (0.0-0.2) mg/dL Indirect Bilirubin (0.0-1.2) mg/dL AST (13-39) Units/L ALT (7-52) Units/L Alkaline Phosphatase (34-104) Units/L Troponin I (< 0.04) ng/mL Serum Total Protein (6.4-8.9) g/dL Albumin (3.5-5.7) g/dL Globulin (2.4-3.5) g/dL Albumin/Globulin Ratio (1.1-2.2) Beta-Hydroxybutyric Acd (0.02-0.27) mmol/L Beta HCG, Quant (Less than 5) mIU/mL Urine Color Yellow (Yellow) Urine Clarity Clear (Clear) Urine pH 5.5 (5.0-8.0) pH Units Ur Specific [place] 1.029 H (1.010-1.025) Urine Protein 30 H (Neg-Trace) mg/dL Urine Glucose (UA) >=1000 H (Normal) mg/dL Urine Ketones >=160 H (Negative) mg/dL Urine Blood Trace H (Negative) Urine Nitrite Negative (Negative) Urine Bilirubin Negative (Negative) Urine Urobilinogen Normal (Normal) mg/dL Ur Leukocyte Esterase Negative (Negative) Urine Microscopic RBC 0-3 (0-3) per hpf Urine Microscopic WBC 0-3 (0-3) per hpf Urine Bacteria Few (None-Few) per hpf Salicylates (15.0-30.0) mg/dL Urine Opiates Screen (Jlmhwn=980) ng/mL Acetaminophen (10-20) mcg/mL Ur Barbiturates Screen ([place]=190) ng/mL Ur Phencyclidine Scrn (Cutoff=25) ng/mL Ur Amphetamines Screen (Xurrtk=5752) ng/mL U Benzodiazepines Scrn (Usyxnv=144) ng/mL Urine Cocaine Screen (Cutoff= 300) ng/mL U Marijuana (THC) Screen (Cutoff = 50) ng/mL Ur Drug Screen Interp Ethyl Alcohol (Less than 10) mg/dL Critical Care Time Critical Care Time: Yes Total Critical Care Time: 65 Attestation: Excluding separately billable procedures. Attestation Statement - Attestation Attestation: This documentation is done with the assistance of Dragmamta dictation. Despite efforts made to ensure accuracy, there may be inaccuracies in router machine operator or spelling and typographical errors. I examined this patient and my medical decision-making was reviewed with the Resident Physician. I agree with the documented findings, disposition and treatment plan as described except to the extent set forth below. Patient seen and evaluated by the evening ER staff and signed out us at 7 AM. I saw her this morning with Dr. Arellano and myself, agree with her evaluation and management plan, I supervised the care of the patient's stay. Patient was found in any known drug house. Unconscious. No change with Narcan. She does have elevated blood sugar and history of diabetes. Unfortunately we still do not know name on her stomach can look in her old records. She has IV access this time were getting labs she is hypothermic. We will start on insulin CT head and then she will need ICU admission.
[2017-12-10 07:19] LABS: Basophils # 0.2 K/mcL (0.0-0.2); Basophils % 0.6 %; Eosinophils # 0.1 K/mcL (0.0-0.6); Eosinophils % 0.3 %; Hemoglobin 10.8 g/dL (11.5-15.4); Immature Granulocytes % 1.2 % (0-4); Immature Platelets 1.9 % (1.1-6.1); Lymphocytes # 3.3 K/mcL (0.6-4.6); Lymphocytes % 12.4 %; Mean Corpuscular HGB Conc 29.2 g/dL (31.6-35.5); Mean Corpuscular Volume 109.5 fL (83.0-100.0); Mean Platelet Volume 10.4 fL (9.4-12.4); Monocytes # 1.9 K/mcL (0.0-1.3); Monocytes % 7.2 %; Platelet Count 604 K/mcL (140-400); Red Blood Count 3.38 M/mcL (3.82-4.97); Red Cell Distribution Width 13.2 % (11.5-14.5); Segmented Neutrophils % 78.3 %
[2017-12-10 07:23] LABS: ABG PCO2 < 13 mmHg (35-45); ABG PH 6.94 pH Units (7.32-7.45); ABG PO2 149 mmHg (85-104)
[2017-12-10] MEDS ORDERED: Sodium Bicarbonate 50 MEQ/50 ML VIAL IVP ONE ×2 (07:31→09:26)
[2017-12-10 07:43] LABS: Bilirubin,Urine Negative (Negative); Blood,Urine Trace (Negative); Clarity,Urine Clear (Clear); Color,Urine Yellow (Yellow); Glucose,Urine (UA) >=1000 mg/dL (Normal); Ketones,Urine >=160 mg/dL (Negative); Leukocyte Esterase,Urine Negative (Negative); Nitrite,Urine Negative (Negative); PH,Urine 5.5 pH Units (5.0-8.0); Protein,Urine 30 mg/dL (Neg-Trace); Specific Gravity,Urine 1.029 (1.010-1.025); Urobilinogen,Urine Normal (Normal)
[2017-12-10 07:44] LABS: Platelet Estimate Increased (Normal)
--- NOTE | 2017-12-10 07:44 | Emergency Department Note ---
Disposition Clinical Impression: Unresponsive, Hyperkalemia, Respiratory distress DKA (diabetic ketoacidoses) Qualifiers: Diabetes mellitus type: type 1 Diabetes mellitus complication detail: with coma Qualified Code(s): E10.11 - Type 1 diabetes mellitus with ketoacidosis with coma Leukocytosis Qualifiers: Leukocytosis type: unspecified Qualified Code(s): D72.829 - Elevated white blood cell count, unspecified Disposition: Admitted As Inpatient Condition: Critical Time of Disposition: 10:14 General Adult HPI - General Chief complaint: ED General Medical Time Seen by Provider: 12/10/17 06:59 Source: EMS Mode of arrival: EMS Limitations: no limitations Nursing Notes Reviewed: Yes Vital Signs Reviewed: Yes - History of Present Illness HPI Narrative: 32-year-old female signed out to us by the night team. Please refer to their note for complete history and physical. Pain Scale: 0 - Related Data Home Medications Medication Instructions Recorded Confirmed Insulin ASPART [Novolog Flexpen] 0 units SQ TIDWM 12/10/17 12/10/17 Insulin Glargine,Hum.rec.anlog 30 unit SQ HS 12/10/17 12/10/17 [Lantus Solostar] Promethazine [Phenergan] 25 mg PO BID PRN 12/10/17 12/10/17 Allergies Allergy/AdvReac Type Severity Reaction Status Date / Time acetaminophen [From [place]] Allergy Hives Verified 12/10/17 09:12 hydrocodone [From [place]] Allergy Hives Verified 12/10/17 09:12 Limitations: ROS unobtainable due to patients medical condition Past Medical History - Past Medical History Source: unable to obtain Medical history: Reports: diabetes - Social History Smoking Status: Unknown if ever smoked Alcohol use: Reports: unknown Drug use: Reports: unknown Physical Exam - General Limitations: no limitations General appearance: obtunded - Head Head exam: atraumatic, normocephalic, normal inspection - Eye Eye exam: Present: mydriasis. Absent: scleral icterus, conjunctival injection - ENT ENT exam: mucous membranes dry - Neck Neck exam: Present: normal inspection, trachea midline - Chest Chest inspection: Present: normal inspection. Absent: rash - Respiratory Respiratory exam: Present: other (kusmal breathing on exam). Absent: wheezes, stridor - Cardiovascular Cardiovascular exam: Present: normal rhythm, tachycardia - Abdominal Exam Abdominal exam: Absent: distention, guarding, rebound, rigidity - Extremities Exam Extremities exam: Absent: pedal edema - Skin Skin exam: Present: other (cool to touch) Course Course Narrative: 52-year-old female presenting to the emergency department unresponsive. Upon examination patient minimally responsive with moaning increased nonbreathing. Pupils dilated. Patient is tachycardic on exam. Initial fingerstick glucose high. Patient does have known history of type 1 diabetes. At this time provide her with 2 L of warm normal saline. We will provide her with 10 units of insulin and complete a Bessie of labs including a CT of the head and chest x -ray. Bear hugger placed on the patient as well. When initial EKG was completed that showed widening QRS. Patient's ABG also shows a pH of 6.9 and low bicarbonate. Due to this we will provide her with 2 amps of bicarbonate and repeat EKG. Unknown ingestion versus DKA at this time. Due to patient's pH we will also start an insulin drip at 4 units per hour. Close reassessment. Labs pending. Disposition most likely be admission to ICU but pending results. - Reevaluation(s) Reevaluation #1: Patient's laboratory analysis shows elevated lactic acid along with leukocytosis. Concern for ruling out sepsis at this time. No obvious source of infection at this time. We will provide the patient with vanc and Zosyn. Patient has been fluid resuscitated with 4500 mL of fluid. Patient intubated due to respiratory distress. Blood pressure stabilized with systolic in the 120s after intubation and therefore patient sedated with propofol. When OG tube was placed coffee-ground material came out. Patient given 40 mg Protonix and placed on a Protonix drip. Repeat ABG completed and showed worsening acidosis therefore 2 more amps of bicarbonate was given and patient had respiratory rate increase from 12 to 16 on ventilator. Patient lab also shows hyperkalemia. Patient provided with 1 g of calcium. Repeat EKG completed after 2 Amps of bicarbonate shows narrowing of QRS. Patient still tachycardic in the 120s but blood pressure stabilized with systolic in the [address] of the head within normal limits. Initial chest x-ray showed right mainstem intubation therefore to pulled back 2 cm. Labs were unable to be obtained due to poor peripheral vascular access. A right thumb stick was obtained to get blood cultures before antibiotics were started. Then a midline was placed by nursing for further IV access. I spoke with the in service education teacher inventory control specialist Dr. Mann who agreed to accept the patient to ICU at this time. Family members now at bedside. Vital Signs Temperature 93.2 F L 12/10/17 06:22 Pulse Rate 121 12/10/17 06:22 Respiratory Rate 40 12/10/17 06:22 Blood Pressure 90/49 12/10/17 06:22 O2 Sat by Pulse Oximetry 100 12/10/17 06:22 Temperature 93.5 F L 12/10/17 09:52 Pulse Rate 131 12/10/17 09:52 Respiratory Rate 20 12/10/17 09:52 Blood Pressure 110/68 12/10/17 09:52 O2 Sat by Pulse Oximetry 100 12/10/17 09:52 Oxygen Delivery Oxygen Delivery Ventilator Procedures - Intubation Time out performed: Yes sedative: Versed Mg Given: 4 paralytic: Rocuronium Mg Given: 20 Laryngoscope: Agustin ET Tube Size: 7 ET Tube Uncuffed: No Tube Secured Depth (cm): 21 Tube Secured Location: lips Tube Placement Confirmation: visualized tube passing through cords, equal breath sounds bilaterally, no breath sounds over epigastrium, confirmation by capnometry Patient Tolerated Procedure: well Intubation Complications: none Medical Decision Making - Lab Data Result diagrams: 12/10/17 07:00 12/10/17 07:00 Lab Results 12/10/17 12/10/17 12/10/17 Range/Units 07:00 07:00 07:00 WBC 26.8 H (4.3-11.1) K/mcL RBC 3.38 L (3.82-4.97) M/mcL Hgb 10.8 L (11.5-15.4) g/dL Hct 37.0 (35.3-44.9) % MCV 109.5 H (83.0-100.0) fL MCH 32.0 (28.0-33.3) pg MCHC 29.2 L (31.6-35.5) g/dL RDW 13.2 (11.5-14.5) % Plt Count 604 H (140-400) K/mcL MPV 10.4 (9.4-12.4) fL Immature Gran % 1.2 (0-4) % Seg Neutrophils % 78.3 % Lymphocytes % 12.4 % Monocytes % 7.2 % Eosinophils % 0.3 % Basophils % 0.6 % Neutrophils # 21.0 H (1.6-8.9) K/mcL Lymphocytes # 3.3 (0.6-4.6) K/mcL Monocytes # 1.9 H (0.0-1.3) K/mcL Eosinophils # 0.1 (0.0-0.6) K/mcL Basophils # 0.2 (0.0-0.2) K/mcL Platelet Estimate Increased H (Normal) Immature Plt Fraction 1.9 (1.1-6.1) % Sample Site ABG pH (7.32-7.45) pH Units ABG pCO2 (35-45) mmHg ABG pO2 (85-104) mmHg ABG HCO3 ABG Total CO2 ABG O2 Saturation ABG Base Excess [place] Test Respiration Rate O2 Delivery Device Blood Gas Modality Inspired O2 (1-15=lpm [id number]=%) Tidal Volume cc PEEP cm H2O Sodium 128 L (136-145) mEq/L Potassium 7.5 H* (3.5-5.1) mEq/L Chloride 92 L (98-107) mEq/L Carbon Dioxide 3 L* (23-29) mEq/L BUN 26 H (6-20) mg/dL Creatinine 2.00 H (0.60-1.20) mg/dL Est GFR ( Amer) 35 L (> 60) Est GFR (Non-Af Amer) 29 L (> 60) BUN/Creatinine Ratio 13 (6-26) Glucose 1287 H* (70-105) mg/dL Calculated Osmolality 337 H (280-300) Lactic Acid (0.5-2.2) mmol/L Calcium 8.1 L (8.6-10.3) mg/dL Phosphorus 9.5 H (2.7-4.5) mg/dL Magnesium 2.7 H (1.6-2.6) mg/dL Total Bilirubin 0.3 (0.3-1.0) mg/dL Direct Bilirubin 0.1 (0.0-0.2) mg/dL Indirect Bilirubin 0.2 (0.0-1.2) mg/dL AST 19 (13-39) Units/L ALT 17 (7-52) Units/L Alkaline Phosphatase 213 H (34-104) Units/L Troponin I < 0.03 (< 0.04) ng/mL Serum Total Protein 5.9 L (6.4-8.9) g/dL Albumin 3.3 L (3.5-5.7) g/dL Globulin 2.6 (2.4-3.5) g/dL Albumin/Globulin Ratio 1.3 (1.1-2.2) Beta-Hydroxybutyric Acd > 2.00 H (0.02-0.27) mmol/L Beta HCG, Quant 1 (Less than 5) mIU/mL Urine Color (Yellow) Urine Clarity (Clear) Urine pH (5.0-8.0) pH Units Ur Specific [place] (1.010-1.025) Urine Protein (Neg-Trace) mg/dL Urine Glucose (UA) (Normal) mg/dL Urine Ketones (Negative) mg/dL Urine Blood (Negative) Urine Nitrite (Negative) Urine Bilirubin (Negative) Urine Urobilinogen (Normal) mg/dL Ur Leukocyte Esterase (Negative) Urine Microscopic RBC (0-3) per hpf Urine Microscopic WBC (0-3) per hpf Urine Bacteria (None-Few) per hpf Salicylates < 2.5 L (15.0-30.0) mg/dL Urine Opiates Screen (Jgprpb=538) ng/mL Acetaminophen < 10 L (10-20) mcg/mL Ur Barbiturates Screen (Oflydk=432) ng/mL Ur Phencyclidine Scrn (Cutoff=25) ng/mL Ur Amphetamines Screen (Bodqvo=5580) ng/mL U Benzodiazepines Scrn (Vurarm=118) ng/mL Urine Cocaine Screen (Cutoff= 300) ng/mL U Marijuana (THC) Screen (Cutoff = 50) ng/mL Ur Drug Screen Interp Ethyl Alcohol < 10 (Less than 10) mg/dL Blood Type Antibody Screen 12/10/17 12/10/17 12/10/17 Range/Units 07:00 07:20 07:24 WBC (4.3-11.1) K/mcL RBC (3.82-4.97) M/mcL Hgb (11.5-15.4) g/dL Hct (35.3-44.9) % MCV (83.0-100.0) fL MCH (28.0-33.3) pg MCHC (31.6-35.5) g/dL RDW (11.5-14.5) % Plt Count (140-400) K/mcL MPV (9.4-12.4) fL Immature Gran % (0-4) % Seg Neutrophils % % Lymphocytes % % Monocytes % % Eosinophils % % Basophils % % Neutrophils # (1.6-8.9) K/mcL Lymphocytes # (0.6-4.6) K/mcL Monocytes # (0.0-1.3) K/mcL Eosinophils # (0.0-0.6) K/mcL Basophils # (0.0-0.2) K/mcL Platelet Estimate (Normal) Immature Plt Fraction (1.1-6.1) % Sample Site R Radial ABG pH 6.94 L* (7.32-7.45) pH Units ABG pCO2 < 13 L* (35-45) mmHg ABG pO2 149 H (85-104) mmHg ABG HCO3 TNP ABG Total CO2 TNP ABG O2 Saturation TNP ABG Base Excess TNP [place] Test Positive Respiration Rate O2 Delivery Device Room Air Blood Gas Modality Inspired O2 21.0 (1-15=lpm [id number]=%) Tidal Volume cc PEEP cm H2O Sodium (136-145) mEq/L Potassium (3.5-5.1) mEq/L Chloride (98-107) mEq/L Carbon Dioxide (23-29) mEq/L BUN (6-20) mg/dL Creatinine (0.60-1.20) mg/dL Est GFR ( Amer) (> 60) Est GFR (Non-Af Amer) (> 60) BUN/Creatinine Ratio (6-26) Glucose (70-105) mg/dL Calculated Osmolality (280-300) Lactic Acid 4.3 H* (0.5-2.2) mmol/L Calcium (8.6-10.3) mg/dL Phosphorus (2.7-4.5) mg/dL Magnesium (1.6-2.6) mg/dL Total Bilirubin (0.3-1.0) mg/dL Direct Bilirubin (0.0-0.2) mg/dL Indirect Bilirubin (0.0-1.2) mg/dL AST (13-39) Units/L ALT (7-52) Units/L Alkaline Phosphatase (34-104) Units/L Troponin I (< 0.04) ng/mL Serum Total Protein (6.4-8.9) g/dL Albumin (3.5-5.7) g/dL Globulin (2.4-3.5) g/dL Albumin/Globulin Ratio (1.1-2.2) Beta-Hydroxybutyric Acd (0.02-0.27) mmol/L Beta HCG, Quant (Less than 5) mIU/mL Urine Color (Yellow) Urine Clarity (Clear) Urine pH (5.0-8.0) pH Units Ur Specific [place] (1.010-1.025) Urine Protein (Neg-Trace) mg/dL Urine Glucose (UA) (Normal) mg/dL Urine Ketones (Negative) mg/dL Urine Blood (Negative) Urine Nitrite (Negative) Urine Bilirubin (Negative) Urine Urobilinogen (Normal) mg/dL Ur Leukocyte Esterase (Negative) Urine Microscopic RBC (0-3) per hpf Urine Microscopic WBC (0-3) per hpf Urine Bacteria (None-Few) per hpf Salicylates (15.0-30.0) mg/dL Urine Opiates Screen Negative (Wrdlat=727) ng/mL Acetaminophen (10-20) mcg/mL Ur Barbiturates Screen Negative (Lxeaks=374) ng/mL Ur Phencyclidine Scrn Negative (Cutoff=25) ng/mL Ur Amphetamines Screen Negative (Olypva=6714) ng/mL U Benzodiazepines Scrn Negative (Dclybo=120) ng/mL Urine Cocaine Screen Negative (Cutoff= 300) ng/mL U Marijuana (THC) Screen Negative (Cutoff = 50) ng/mL Ur Drug Screen Interp See Below Ethyl Alcohol (Less than 10) mg/dL Blood Type Antibody Screen 12/10/17 12/10/17 12/10/17 Range/Units 07:24 09:11 09:13 WBC (4.3-11.1) K/mcL RBC (3.82-4.97) M/mcL Hgb (11.5-15.4) g/dL Hct (35.3-44.9) % MCV (83.0-100.0) fL MCH (28.0-33.3) pg MCHC (31.6-35.5) g/dL RDW (11.5-14.5) % Plt Count (140-400) K/mcL MPV (9.4-12.4) fL Immature Gran % (0-4) % Seg Neutrophils % % Lymphocytes % % Monocytes % % Eosinophils % % Basophils % % Neutrophils # (1.6-8.9) K/mcL Lymphocytes # (0.6-4.6) K/mcL Monocytes # (0.0-1.3) K/mcL Eosinophils # (0.0-0.6) K/mcL Basophils # (0.0-0.2) K/mcL Platelet Estimate (Normal) Immature Plt Fraction (1.1-6.1) % Sample Site ABG pH 6.90 L* (7.32-7.45) pH Units ABG pCO2 19 L* (35-45) mmHg ABG pO2 180 H (85-104) mmHg ABG HCO3 4 L ABG Total CO2 4 L ABG O2 Saturation 98 ABG Base Excess -28 L Sheldon Test Respiration Rate 12 O2 Delivery Device Adult Vent Blood Gas Modality AF Inspired O2 35.0 (1-15=lpm [id number]=%) Tidal Volume 400 cc PEEP 5 cm H2O Sodium (136-145) mEq/L Potassium (3.5-5.1) mEq/L Chloride (98-107) mEq/L Carbon Dioxide (23-29) mEq/L BUN (6-20) mg/dL Creatinine (0.60-1.20) mg/dL Est GFR ( Amer) (> 60) Est GFR (Non-Af Amer) (> 60) BUN/Creatinine Ratio (6-26) Glucose (70-105) mg/dL Calculated Osmolality (280-300) Lactic Acid (0.5-2.2) mmol/L Calcium (8.6-10.3) mg/dL Phosphorus (2.7-4.5) mg/dL Magnesium (1.6-2.6) mg/dL Total Bilirubin (0.3-1.0) mg/dL Direct Bilirubin (0.0-0.2) mg/dL Indirect Bilirubin (0.0-1.2) mg/dL AST (13-39) Units/L ALT (7-52) Units/L Alkaline Phosphatase (34-104) Units/L Troponin I (< 0.04) ng/mL Serum Total Protein (6.4-8.9) g/dL Albumin (3.5-5.7) g/dL Globulin (2.4-3.5) g/dL Albumin/Globulin Ratio (1.1-2.2) Beta-Hydroxybutyric Acd (0.02-0.27) mmol/L Beta HCG, Quant (Less than 5) mIU/mL Urine Color Yellow (Yellow) Urine Clarity Clear (Clear) Urine pH 5.5 (5.0-8.0) pH Units Ur Specific [place] 1.029 H (1.010-1.025) Urine Protein 30 H (Neg-Trace) mg/dL Urine Glucose (UA) >=1000 H (Normal) mg/dL Urine Ketones >=160 H (Negative) mg/dL Urine Blood Trace H (Negative) Urine Nitrite Negative (Negative) Urine Bilirubin Negative (Negative) Urine Urobilinogen Normal (Normal) mg/dL Ur Leukocyte Esterase Negative (Negative) Urine Microscopic RBC 0-3 (0-3) per hpf Urine Microscopic WBC 0-3 (0-3) per hpf Urine Bacteria Few (None-Few) per hpf Salicylates (15.0-30.0) mg/dL Urine Opiates Screen (Aavuzv=090) ng/mL Acetaminophen (10-20) mcg/mL Ur Barbiturates Screen (Ydwoax=737) ng/mL Ur Phencyclidine Scrn (Cutoff=25) ng/mL Ur Amphetamines Screen (Sjtthv=1502) ng/mL U Benzodiazepines Scrn (Nknbrt=724) ng/mL Urine Cocaine Screen (Cutoff= 300) ng/mL U Marijuana (THC) Screen (Cutoff = 50) ng/mL Ur Drug Screen Interp Ethyl Alcohol (Less than 10) mg/dL Blood Type B POSITIVE Antibody Screen NEGATIVE - EKG Data EKG #1 EKG attestation: Yes I reviewed and interpreted this EKG. EKG results narrative: Sinus tachycardia. 123 beats per minute. DC interval 76, QRS 143, QTC 624. No acute ST segment elevation or ischemia. No previous ekg to compare to. EKG #2 EKG attestation: Yes I reviewed and interpreted this EKG. EKG results narrative: Sinus tachycardia. 119 bpm. DC interval 86, QRS 137, QTC 649. No signs of acute ST segment elevation or ischemia. EKG #3 EKG attestation: Yes I reviewed and interpreted this EKG. EKG results narrative: Sinus tachycardia. 119 bpm. DC interval 114, QRS 136, QTC 523. No signs of acute ST segment elevation or ischemia. EKG #4 EKG attestation: Yes I reviewed and interpreted this EKG. EKG results narrative: Sinus tachycardia. 119 bpm. DC interval 133, QRS 123, QTC 521. No signs of acute ST segment elevation or ischemia. EKG #5 EKG attestation: Yes I reviewed and interpreted this EKG. EKG results narrative: Sinus tachycardia. 126 bpm. DC interval 131, QRS 104, QTC 481. No signs of acute ST segment elevation or ischemia.
[2017-12-10 07:46] LABS: Amphetamine Screen,Urine Negative ng/mL (Cutoff=1000); Barbiturate Screen,Urine Negative ng/mL (Cutoff=200); Benzodiazepines Screen,Urine Negative ng/mL (Cutoff=200); Cannabinoid Screen,Urine Negative ng/mL (Cutoff = 50); Cocaine Screen,Urine Negative ng/mL (Cutoff= 300); Opiate Screen,Urine Negative ng/mL (Cutoff=300); Phencyclidine Screen,Urine Negative ng/mL (Cutoff=25)
[2017-12-10 07:50] LABS: Bacteria,Urine Few per hpf (None-Few); RBC,Urine 0-3 per hpf (0-3); WBC,Urine 0-3 per hpf (0-3)
[2017-12-10] MEDS ORDERED: Piperacillin/Tazobactam 3.375 GM in 0.9 % Sodium Chloride Mini Bag 100 ML IVPB ONE (08:01)
[2017-12-10 08:04] LABS: Acetaminophen < 10 mcg/mL (10-20); Ethanol < 10 mg/dL (Less than 10); Salicylate < 2.5 mg/dL (15.0-30.0)
[2017-12-10 08:07] LABS: Alanine Aminotransferase 17 Units/L (7-52); Albumin 3.3 g/dL (3.5-5.7); Albumin/Globulin Ratio 1.3 (1.1-2.2); Alkaline Phosphatase 213 Units/L (34-104); Aspartate Amino Transferase 19 Units/L (13-39); BUN/Creatinine Ratio 13 (6-26); Bilirubin,Direct 0.1 mg/dL (0.0-0.2); Bilirubin,Indirect 0.2 mg/dL (0.0-1.2); Bilirubin,Total 0.3 mg/dL (0.3-1.0); Blood Urea Nitrogen 26 mg/dL (6-20); Calcium 8.1 mg/dL (8.6-10.3); Carbon Dioxide 3 mEq/L (23-29); Chloride 92 mEq/L (98-107); Globulin 2.6 g/dL (2.4-3.5); Magnesium 2.7 mg/dL (1.6-2.6); Osmolality,Calculated 337 (280-300); Phosphorous 9.5 mg/dL (2.7-4.5); Sodium 128 mEq/L (136-145); Total Protein 5.9 g/dL (6.4-8.9); Troponin I < 0.03 ng/mL (< 0.04); eGFR For Non-African Americans 29 (> 60)
[2017-12-10] MEDS ORDERED: Ringers Solution, Lactated 1,000 ML IVC ONE ×3 (08:09→16:44)
[2017-12-10 08:11] LABS: Potassium 7.5 mEq/L (3.5-5.1)
[2017-12-10 08:13] LABS: Glucose 1287 mg/dL (70-105)
[2017-12-10] MEDS ORDERED: *HR* Midazolam HCl 2 MG/2 ML VIAL IVP ONE (08:17)
[2017-12-10] MEDS: Insulin Human Regular 100 UNIT in 0.9 % Sodium Chloride 100 ML IVC SCH ×2 (08:20→11:00)
[2017-12-10] MEDS ORDERED: *HR* Rocuronium Bromide 50 MG/5 ML VIAL IVC ONE (08:22)
[2017-12-10] MEDS ORDERED: *HR* Midazolam HCl 5 MG/5 ML VIAL IVP ONE ×2 (08:22→10:24)
[2017-12-10] MEDS ORDERED: *HR* Midazolam HCl 2 MG/2 ML VIAL IV ONE (08:22)
[2017-12-10] MEDS ORDERED: Pantoprazole 40 MG VIAL IVP ONE (08:55)
[2017-12-10] MEDS ORDERED: 0.9 % Sodium Chloride 1,000 ML IVC ONE (08:55)
[2017-12-10 09:14] LABS: ABG Base Excess -28 mEq/L (-2 to 3); ABG HCO3 4 mEq/L (21-27); ABG Oxygen Saturation 98 % (95-98); ABG PCO2 19 mmHg (35-45); ABG PO2 180 mmHg (85-104); ABG TCO2 4 mEq/L (20-26); Blood Gas Modality AF; Blood Gas PEEP 5 cm H2O; Blood Gas Respiration Rate 12; Blood Gas VT 400 cc
[2017-12-10] MEDS ORDERED: Propofol 500 MG/50 ML INFUS..BTL ONE (09:30)
[2017-12-10] MEDS: Pantoprazole 40 MG in 0.9 % Sodium Chloride Mini Bag 100 ML IVC SCH ×3 (09:45→19:38)
[2017-12-10] MEDS ORDERED: *HR* Midazolam HCl 2 MG/2 ML VIAL ONE (10:20)
--- NOTE | 2017-12-10 10:33 | Pulmonology History & Physical ---
<Jean Paul Maravilla W - Last Filed: 12/10/17 10:51> Date of Encounter: 12/10/17 History of Present Illness HPI: Ms. Sierra is a 32 year old female Medications and Allergies Insulin ASPART [Novolog Flexpen] 0 units SQ TIDWM 12/10/17 [History] Insulin Glargine,Hum.rec.anlog [Lantus Solostar] 30 unit SQ HS 12/10/17 [History ] Promethazine [Phenergan] 25 mg PO BID PRN 12/10/17 [History] 3 Allergy/AdvReac Type Severity Reaction Status Date / Time acetaminophen [From [place]] Allergy Hives Verified 12/10/17 09:12 hydrocodone [From [place]] Allergy Hives Verified 12/10/17 09:12 All Systems: The remainder of the systems were reviewed and are negative Physical Examination Vital Signs: Vital Signs, Last 4 Hours Temp Pulse Resp BP Pulse Ox 12/10/17 09:52 93.5 F L 131 20 110/68 100 Results - Laboratory Findings CBC and BMP: 12/10/17 07:00 12/10/17 07:00 ABG ABG pH 6.90 pH Units (7.32-7.45) L* 12/10/17 09:11 ABG pCO2 19 mmHg (35-45) L* 12/10/17 09:11 ABG pO2 180 mmHg (85-104) H 12/10/17 09:11 ABG O2 Saturation 98 % (95-98) 12/10/17 09:11 Abnormal lab findings: Abnormal lab results WBC 26.8 K/mcL (4.3-11.1) H 12/10/17 07:00 RBC 3.38 M/mcL (3.82-4.97) L 12/10/17 07:00 Hgb 10.8 g/dL (11.5-15.4) L 12/10/17 07:00 MCV 109.5 fL (83.0-100.0) H 12/10/17 07:00 MCHC 29.2 g/dL (31.6-35.5) L 12/10/17 07:00 Plt Count 604 K/mcL (140-400) H 12/10/17 07:00 Neutrophils # 21.0 K/mcL (1.6-8.9) H 12/10/17 07:00 Monocytes # 1.9 K/mcL (0.0-1.3) H 12/10/17 07:00 Platelet Estimate Increased (Normal) H 12/10/17 07:00 ABG pH 6.90 pH Units (7.32-7.45) L* 12/10/17 09:11 ABG pCO2 19 mmHg (35-45) L* 12/10/17 09:11 ABG pO2 180 mmHg (85-104) H 12/10/17 09:11 ABG HCO3 4 mEq/L (21-27) L 12/10/17 09:11 ABG Total CO2 4 mEq/L (20-26) L 12/10/17 09:11 ABG Base Excess -28 mEq/L (-2 to 3) L 12/10/17 09:11 Sodium 128 mEq/L (136-145) L 12/10/17 07:00 Potassium 7.5 mEq/L (3.5-5.1) H* 12/10/17 07:00 Chloride 92 mEq/L (98-107) L 12/10/17 07:00 Carbon Dioxide 3 mEq/L (23-29) L* 12/10/17 07:00 BUN 26 mg/dL (6-20) H 12/10/17 07:00 Creatinine 2.00 mg/dL (0.60-1.20) H 12/10/17 07:00 Est GFR ( Amer) 35 (> 60) L 12/10/17 07:00 Est GFR (Non-Af Amer) 29 (> 60) L 12/10/17 07:00 Glucose 1287 mg/dL (70-105) H* 12/10/17 07:00 Calculated Osmolality 337 (280-300) H 12/10/17 07:00 Lactic Acid 4.3 mmol/L (0.5-2.2) H* 12/10/17 07:00 Calcium 8.1 mg/dL (8.6-10.3) L 12/10/17 07:00 Phosphorus 9.5 mg/dL (2.7-4.5) H 12/10/17 07:00 Magnesium 2.7 mg/dL (1.6-2.6) H 12/10/17 07:00 Alkaline Phosphatase 213 Units/L (34-104) H 12/10/17 07:00 Serum Total Protein 5.9 g/dL (6.4-8.9) L 12/10/17 07:00 Albumin 3.3 g/dL (3.5-5.7) L 12/10/17 07:00 Beta-Hydroxybutyric Acd > 2.00 mmol/L (0.02-0.27) H 12/10/17 07:00 Ur Specific [place] 1.029 (1.010-1.025) H 12/10/17 07:24 Urine Protein 30 mg/dL (Neg-Trace) H 12/10/17 07:24 Urine Glucose (UA) >=1000 mg/dL (Normal) H 12/10/17 07:24 Urine Ketones >=160 mg/dL (Negative) H 12/10/17 07:24 Urine Blood Trace (Negative) H 12/10/17 07:24 Salicylates < 2.5 mg/dL (15.0-30.0) L 12/10/17 07:00 Acetaminophen < 10 mcg/mL (10-20) L 12/10/17 07:00 - Attending Attestation I examined this patient and my medical decision-making was reviewed with the Resident Physician. I agree with the documented findings, disposition and treatment plan as described except to the extent set forth below. We independently had [id number] contact with the patient I spent 45min of Critical Care time with this patient. It involved decision making of high complexity to assess, manipulate, and support vital organ system failure and/or to prevent further life threatening deterioration of the patient' s condition. The time involved in the performance of separately reportable procedures was not counted toward critical care time. Patient seen and examined at bedside Labs, radiology, chart personally reviewed. 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 Pulm: Acute respiratory failure patient was electively intubated in the ED she will need increased respiratory rate which she is currently breathing greater than 30 breaths a minute which is acceptable while ongoing acidosis. No clear evidence of pneumonia however she is at high risk for having aspirated given multiple vomiting episodes and she is being covered with the antibiotics for this. Ventilator bundle to prevent ventilator associated pneumonia Cards: She has a life-threatening acidosis with the partial component of elevated lactate which is deaf which is secondary to tissue hypoperfusion and acidosis from DKA .Tachycardia secondary to acidosis and multiorgan system dysfunction GI: Suspected upper GI bleed on Protonix infusion; endoscopy will be consulted for EGD when more stable Nutrition: Nothing by mouth for now Renal: The patient has AK I which is likely secondary to prerenal azotemia from osmotic, diuresis and dehydration. She has a life-threatening metabolic acidosis secondary to DKA enteral and elevated lactic acidosis as well which is likely secondary to the same. UOP Monitored, Cont to Trend sCr and monitor Electrolytes. I would hold off on further sodium bicarbonate is not improving with insulin ID: Suspected aspiration pneumonia she is on the Zosyn for this broad-spectrum cultures will be obtained de-escalate/Sop based upon clinical course Heme/Onc: Mechanical DVT prophylaxis. Monitor H&H because of concern of GI hemorrhage. There is no evidence of coagulopathy at this time Endo: She has diabetic ketoacidosis on insulin infusion she is receiving volume resuscitation. Every hour glucose checks Integ/MSK: Skin Care per routine ICU Nursing Protocol to prevent ulcers. Lines: All lines examined without evidence of infection : Dispo: Remain in ICU for critical illness CODE: Full code. High risk for further decline/ prognosis guarded. I personally discussed the case and updated her and bedside in the emergency department and again in the ICU <Man,José Miguel - Last Filed: 12/10/17 16:30> Date of Encounter: 12/10/17 Time of Encounter: 12:00 Assessment and Plan (1) Acute respiratory failure Current visit: Yes Status: Acute - secondary to her Increased anion gap metabolic acidosis secondary to her DKA, could also be likely to her aspiraton pneumonia. - patient currently on ventiation with FiO2: 35% and PEEP 5, on DKA protocol - continue to monitor her respiratory status Qualifiers: Qualified Code(s): J96.00 - Acute respiratory failure, unspecified whether with hypoxia or hypercapnia (2) DKA (diabetic ketoacidoses) Current visit: Yes Status: Acute - patient has a Hx of multiple admission to [facility] for DKA. this DKA episode is likely due to non-compliant on her insulin or due to her multiple episodes of hematemesis for the last 3 days. She could also have an aspiration pneumonia secondary to her multiple vomiting episodes. She had no fevers, diarrhea in the recent past. patient 's came to the ED with Glucose in 1287, anion gap of 33. pH : 6.87, was intubated. currently Glucose is trending down (1287-> 1033- > 580-> 436) - start DKA protocol, - IV insulin drip, - hypoglycemia control - glucose checks very hour - cardiac telemetry - replenish potassium as needed, - patient does not need bicarbonate because that is going to decrease her respiratory drive. -FU blood cultures Qualifiers: Diabetes mellitus type: type 1 Diabetes mellitus complication detail: with coma Qualified Code(s): E10.11 - Type 1 diabetes mellitus with ketoacidosis with coma (3) Metabolic encephalopathy Current visit: Yes Status: Acute - secondary to her diabetic coma. Patient was found to have DKA on admission with glucose of 1287, hydroxybutyrate >2, rapid breathing, tachycardia Her Head CT was unremarkable for any intracranial masses or hemorrhage. Tox screen was negative, ethyl alcohol < 10, -patient currently on ventilator - currently on DKA protocol - contained to monitor for changes in mental status (4) Sepsis Current visit: Yes Status: Acute - patent was admitted to the ED with WBC: 26.8, HR: 138, Lactate : 4.3 She wasn' t hypotensive on admission. patient started on Zosyn in the ED - likely due to aspiration pneumonia secondary to multiple episodes of hemetemsis for few days, and being found unresponsive at a location known to contain illicit substance , her UA was unremarkable, Tox screen -ve, her sputum and blood cultures pending, MRSA swab pending, Resp infection panel pending - Trend Lactate q4h, hydration. Currently on Zosyn,De-escalate antibiotic when the cultures results are out Qualifiers: Qualified Code(s): A41.9 - Sepsis, unspecified organism (5) Anemia Current visit: Yes Status: Acute - likely due to acute blood loss from emesis. According to patient's she 's been having multiple episodes of 'dark vomiting' for the past few days. Hb is 10.8 on presentation. We will give here unit of pRBc if Hb goes below 7. - her CT of the abdomen and pelvis (from 08/05) showed colonic thickening suggestive of colitis. it also showed new , indeterminate, intrahepatic biliary distention without clear obstructive cause. Her LFTs look normal today except for elevated Alk Phos: 213. . it is possible that her hematemeis is due to an infectious etiology (with her WBC being elevated ) or a suspect sequelae of DKA. She has had multiple episodes of emesis in he pas with no established etiology. - Trend H&H, Hb curently 10.8 , transfuse if Hb goes below 7 - GI on board : as per Dr. Mcknight's recommendation- NPO after midnight for a potential EGD tomorrow - Qualifiers: Qualified Code(s): D64.9 - Anemia, unspecified (6) Hematemesis Current visit: Yes Status: Acute - patient presented to the ED with multiple episodes of bloody vomiting- it is possible that she could likely have Jessa Hardy tear secondary to her hematemsis. her CT of the abdomen and pelvis (from 08/05) showed colonic thickening suggestive of colitis. it also showed new , indeterminate, intrahepatic biliary distention without clear obstructive cause. it is possible that her hematemeis is due to an infectious etiology (with her WBC being elevated,or a suspect sequelae of DKA) - Trend H&H, Hb currently 10.8 , transfuse s Hb goes below 7 - GI on board : as per Dr. Mcknight's recommendation- NPO after midnight for a potential EGD tomorrow Qualifiers: Qualified Code(s): K92.0 - Hematemesis (7) Pneumonia Current visit: Yes Status: Acute - likely aspiration pneumonia secondary to multiple episodes of vomiting . - patient was afebrile on admission, leukocytotic ( 26.8) and elevated lactate ( 5.0), on physical exam she had b/l wheezes - currently she is on ventilator with vent bundle to prevent ventilator associated pneumonia -sputum/ blood cultures pending, MRSA swab and Respiratory infection Panel pending - continue Zosyn De-escalate Abx when the culture results are out Qualifiers: Qualified Code(s): J18.9 - Pneumonia, unspecified organism (8) Diabetes mellitus type 1 Current visit: Yes Status: Acute Patient has had uncontrolled DM1 for 20 years. -Patient's past record states shows that she has been undergoing discussion for insulin pump. Not sure if she has a pump. -She has had consultation in [facility] in July, for gastric stimulator. - currently we're correcting her hyperglycemic status due to DKA Qualifiers: Qualified Code(s): E10.11 - Type 1 diabetes mellitus with ketoacidosis with coma (9) PAOLA (acute kidney injury) Current visit: Yes Status: Acute - likely due to prerenal azotemia from dehydration and osmosis due to extensive hyperglycemia (1287 on admission) causes by DKA. - On admission: BUN: 23 Cr : 1.69 - UOP monitor, Continue to trend SCr and monitor Electrolytes. (10) DVT prophylaxis Current visit: Yes Status: Acute Mechanical DVT prophylaxis. Cannot do chemical prophylaxis because of her multiple episodes of hemetemesis History of Present Illness Chief complaint: DKA HPI: Ms. Sierra is a 32 year old female who came to the ED because of unresponsiveness. Most of the Hx was obtained from the patients's . According to him patient has had multiple episodes of 'dark vomiting' for the past few day accompanied with stomach pain. She didn't have any episodes of diarrhea. He denies any recent travel, recent infection or any other family member being sick at home. Patient does have a Hx of gastroparesis secondary to her chronic DM1 when she was 11, with the most recent A1C as of 08/02/17 being 9.6. She is supposed to get a gastric pacemaker . On browsing through her records with the name "Hilton Sierra" , i found that she's had multiple admissions to the ED for DKA. Initial workup in the ED showed that her glucose was 1287, lactic acid : 4.3, ABG showed metabolic acidosis with pH: 6.94, pCO2: < 13, K : 7.5 , with beta - hydroxybutyric acid > 2.0. Her toxicology screen was unremarkable. Her UA was negative as well. She was found to be in sepsis with HR: 138 and leukocytotic with a WBC : 26.8, HgB 10.8. Her initial physical exam showed pupils were dilated and non-reactive, mucous membranes were dry, with deep respirations (30 ) , HHR: 138, BP : 140/66. She was intubated and sedate with Versed and Rocuronium and sent to the ICU for further management of DKA and sepsis. Past Med Surg Social Fam HX - Past Medical History Medical history: diabetes - Social History Smoking Status: Unknown if ever smoked Alcohol use: unknown Drug use: unknown All Systems: The remainder of the systems were reviewed and are negative Physical Examination Vital Signs: Vital Signs, Last 4 Hours Temp Pulse Resp BP Pulse Ox 12/10/17 09:52 93.5 F L 131 20 110/68 100 General appearance: comatose (on ventilator ) Effort: very labored Auscultation: bilateral: wheezes Cardiovascular: other (tachycardia. Hx of murmur) Gastrointestinal: soft, non-tender, non-distended Extremities: no cyanosis, no edema, no clubbing unable to assess due to mental status Results - Laboratory Findings CBC and BMP: 12/10/17 07:00 12/10/17 13:00 ABG ABG pH 6.90 pH Units (7.32-7.45) L* 12/10/17 09:11 ABG pCO2 19 mmHg (35-45) L* 12/10/17 09:11 ABG pO2 180 mmHg (85-104) H 12/10/17 09:11 ABG O2 Saturation 98 % (95-98) 12/10/17 09:11 Abnormal lab findings: Abnormal lab results WBC 26.8 K/mcL (4.3-11.1) H 12/10/17 07:00 RBC 3.38 M/mcL (3.82-4.97) L 12/10/17 07:00 Hgb 10.8 g/dL (11.5-15.4) L 12/10/17 07:00 MCV 109.5 fL (83.0-100.0) H 12/10/17 07:00 MCHC 29.2 g/dL (31.6-35.5) L 12/10/17 07:00 Plt Count 604 K/mcL (140-400) H 12/10/17 07:00 Neutrophils # 21.0 K/mcL (1.6-8.9) H 12/10/17 07:00 Monocytes # 1.9 K/mcL (0.0-1.3) H 12/10/17 07:00 Platelet Estimate Increased (Normal) H 12/10/17 07:00 ABG pH 6.90 pH Units (7.32-7.45) L* 12/10/17 09:11 ABG pCO2 19 mmHg (35-45) L* 12/10/17 09:11 ABG pO2 180 mmHg (85-104) H 12/10/17 09:11 ABG HCO3 4 mEq/L (21-27) L 12/10/17 09:11 ABG Total CO2 4 mEq/L (20-26) L 12/10/17 09:11 ABG Base Excess -28 mEq/L (-2 to 3) L 12/10/17 09:11 Sodium 128 mEq/L (136-145) L 12/10/17 07:00 Potassium 7.5 mEq/L (3.5-5.1) H* 12/10/17 07:00 Chloride 92 mEq/L (98-107) L 12/10/17 07:00 Carbon Dioxide 3 mEq/L (23-29) L* 12/10/17 07:00 BUN 26 mg/dL (6-20) H 12/10/17 07:00 Creatinine 2.00 mg/dL (0.60-1.20) H 12/10/17 07:00 Est GFR ( Amer) 35 (> 60) L 12/10/17 07:00 Est GFR (Non-Af Amer) 29 (> 60) L 12/10/17 07:00 Glucose 1287 mg/dL (70-105) H* 12/10/17 07:00 Calculated Osmolality 337 (280-300) H 12/10/17 07:00 Lactic Acid 4.3 mmol/L (0.5-2.2) H* 12/10/17 07:00 Calcium 8.1 mg/dL (8.6-10.3) L 12/10/17 07:00 Phosphorus 9.5 mg/dL (2.7-4.5) H 12/10/17 07:00 Magnesium 2.7 mg/dL (1.6-2.6) H 12/10/17 07:00 Alkaline Phosphatase 213 Units/L (34-104) H 12/10/17 07:00 Serum Total Protein 5.9 g/dL (6.4-8.9) L 12/10/17 07:00 Albumin 3.3 g/dL (3.5-5.7) L 12/10/17 07:00 Beta-Hydroxybutyric Acd > 2.00 mmol/L (0.02-0.27) H 12/10/17 07:00 Ur Specific [place] 1.029 (1.010-1.025) H 12/10/17 07:24 Urine Protein 30 mg/dL (Neg-Trace) H 12/10/17 07:24 Urine Glucose (UA) >=1000 mg/dL (Normal) H 12/10/17 07:24 Urine Ketones >=160 mg/dL (Negative) H 12/10/17 07:24 Urine Blood Trace (Negative) H 12/10/17 07:24 Salicylates < 2.5 mg/dL (15.0-30.0) L 12/10/17 07:00 Acetaminophen < 10 mcg/mL (10-20) L 12/10/17 07:00
[2017-12-10] MEDS ORDERED: Insulin Regular, Human 100 UNIT/ML IV PRN (10:45)
[2017-12-10] MEDS: 0.9 % Sodium Chloride 1,000 ML IVC SCH ×2 (11:00→19:54)
[2017-12-10 11:40] LABS: ABG Base Excess -19 mEq/L (-2 to 3); ABG HCO3 7 mEq/L (21-27); ABG Oxygen Saturation 99 % (95-98); ABG PCO2 18 mmHg (35-45); ABG PH 7.21 pH Units (7.32-7.45); ABG PO2 165 mmHg (85-104); ABG TCO2 8 mEq/L (20-26); Blood Gas Modality ASSIST CONTROL; Blood Gas PEEP 5 cm H2O; Blood Gas Respiration Rate 16; Blood Gas VT 400 cc
[2017-12-10 12:38] LABS: Calcium 7.6 mg/dL (8.6-10.3); Potassium 3.9 mEq/L (3.5-5.1)
[2017-12-10 12:44] LABS: Prothrombin Time 10.7 Seconds (9.4-12.1)
[2017-12-10] MEDS: 0.9 % Sodium Chloride w KCl 20 MEQ/1,000 ML MLS IVC SCH ×2 (13:00→18:32)
[2017-12-10 13:34] LABS: Calcium 7.5 mg/dL (8.6-10.3)
[2017-12-10 16:13] LABS: VBG Ionized Calcium 1.03 mmol/L (1.15-1.35)
[2017-12-10 16:30] LABS: Calcium 7.4 mg/dL (8.6-10.3); Potassium 4.3 mEq/L (3.5-5.1)
[2017-12-10 16:33] LABS: ABG Base Excess -11 mEq/L (-2 to 3); ABG HCO3 14 mEq/L (21-27); ABG Oxygen Saturation 100 % (95-98); ABG PCO2 25 mmHg (35-45); ABG PH 7.35 pH Units (7.32-7.45); ABG PO2 171 mmHg (85-104); ABG TCO2 14 mEq/L (20-26); Blood Gas Modality VC; Blood Gas PEEP 5 cm H2O; Blood Gas Respiration Rate 16; Blood Gas VT 400 cc
[2017-12-10 16:52] LABS: Basophils % 0.2 %; Hematocrit 26.5 % (35.3-44.9); Hemoglobin 8.9 g/dL (11.5-15.4); Immature Granulocytes % 0.7 % (0-4); Immature Platelets 1.6 % (1.1-6.1); Lymphocytes # 0.6 K/mcL (0.6-4.6); Lymphocytes % 4.6 %; Mean Corpuscular HGB Conc 33.6 g/dL (31.6-35.5); Mean Corpuscular Hemoglobin 31.9 pg (28.0-33.3); Mean Platelet Volume 9.6 fL (9.4-12.4); Monocytes # 1.1 K/mcL (0.0-1.3); Monocytes % 7.8 %; Neutrophils # 11.8 K/mcL (1.6-8.9); Platelet Count 346 K/mcL (140-400); Red Blood Count 2.79 M/mcL (3.82-4.97); Red Cell Distribution Width 12.9 % (11.5-14.5); Segmented Neutrophils % 86.7 %
[2017-12-10 16:59] LABS: Adenovirus Not Detected (Not Detect); Bordetella Pertussis Not Detected (Not Detect); Coronavirus 229E Not Detected (Not Detect); Coronavirus HKU1 Not Detected (Not Detect); Coronavirus NL63 Not Detected (Not Detect); Coronavirus OC43 Not Detected (Not Detect); Human Metapneumovirus Not Detected (Not Detect); Human Rhinovirus/Enterovirus Not Detected (Not Detect); Influenza A Subtype 2009 H1 Not Detected (Not Detect); Influenza A Untypeable Not Detected (Not Detect); Influenza B Not Detected (Not Detect); Parainfluenza Virus 1 Not Detected (Not Detect); Parainfluenza Virus 2 Not Detected (Not Detect); Parainfluenza Virus 3 Not Detected (Not Detect); Parainfluenza Virus 4 Not Detected (Not Detect); Respiratory Syncytial Virus Not Detected (Not Detect)
[2017-12-10 17:00] LABS: Chlamydophila pneumoniae Not Detected (Not Detect); Mycoplasma pneumoniae Not Detected (Not Detect)
[2017-12-10 17:42] LABS: Calcium 7.3 mg/dL (8.6-10.3)
[2017-12-10 19:12] LABS: Basophils % 0.2 %; Hematocrit 24.8 % (35.3-44.9); Hemoglobin 8.3 g/dL (11.5-15.4); Immature Granulocytes % 0.8 % (0-4); Lymphocytes # 0.6 K/mcL (0.6-4.6); Mean Corpuscular HGB Conc 33.5 g/dL (31.6-35.5); Mean Corpuscular Hemoglobin 31.4 pg (28.0-33.3); Mean Corpuscular Volume 93.9 fL (83.0-100.0); Mean Platelet Volume 9.6 fL (9.4-12.4); Monocytes # 1.2 K/mcL (0.0-1.3); Monocytes % 10.3 %; Neutrophils # 9.8 K/mcL (1.6-8.9); Platelet Count 316 K/mcL (140-400); Red Blood Count 2.64 M/mcL (3.82-4.97); Segmented Neutrophils % 83.7 %
[2017-12-10 19:31] LABS: Calcium 7.1 mg/dL (8.6-10.3); Potassium 4.4 mEq/L (3.5-5.1)
[2017-12-10 21:09] LABS: Albumin 2.7 g/dL (3.5-5.7); Albumin/Globulin Ratio 1.4 (1.1-2.2); Bilirubin,Direct 0.1 mg/dL (0.0-0.2); Bilirubin,Indirect 0.2 mg/dL (0.0-1.2); Bilirubin,Total 0.3 mg/dL (0.3-1.0); Total Protein 4.7 g/dL (6.4-8.9)
[2017-12-10 21:35] LABS: Bilirubin,Urine Large (Negative); Blood,Urine Moderate (Negative); Clarity,Urine Turbid (Clear); Color,Urine Yellow (Yellow); Glucose,Urine (UA) 250 mg/dL (Normal); Ketones,Urine 40 mg/dL (Negative); Leukocyte Esterase,Urine Trace (Negative); Nitrite,Urine Negative (Negative); Protein,Urine 100 mg/dL (Neg-Trace); Specific Gravity,Urine 1.015 (1.010-1.025); Urobilinogen,Urine Normal (Normal)
[2017-12-10 21:36] LABS: Squamous Epithelial Cell,Urine Many per lpf (None-Few)
[2017-12-10 21:47] LABS: Bacteria,Urine Many per hpf (None-Few)
[2017-12-10 21:50] LABS: Amorphous Sediment,Urine Many (Few); WBC,Urine 0-3 per hpf (0-3)
[2017-12-10] MEDS: D5% in 0.45% NACL w KCl 20 MEQ/1,000 ML MLS IVC SCH (22:45)
[2017-12-10 23:35] LABS: BUN/Creatinine Ratio 13 (6-26); Blood Urea Nitrogen 15 mg/dL (6-20); Calcium 7.1 mg/dL (8.6-10.3); Carbon Dioxide 21 mEq/L (23-29); Chloride 121 mEq/L (98-107); Glucose 106 mg/dL (70-105); Osmolality,Calculated 313 (280-300); Potassium 3.8 mEq/L (3.5-5.1); Sodium 151 mEq/L (136-145); eGFR For Non-African Americans 53 (> 60)
[2017-12-11] MEDS: Pantoprazole 40 MG in 0.9 % Sodium Chloride Mini Bag 100 ML IVC SCH ×6 (00:45→23:11)
[2017-12-11] MEDS: D5% in 0.45% NACL w KCl 20 MEQ/1,000 ML MLS IVC SCH ×3 (02:45→07:03)
[2017-12-11 04:49] LABS: ABG Base Excess -8 mEq/L (-2 to 3); ABG HCO3 17 mEq/L (21-27); ABG Oxygen Saturation 100 % (95-98); ABG PCO2 34 mmHg (35-45); ABG PH 7.32 pH Units (7.32-7.45); ABG PO2 181 mmHg (85-104); ABG TCO2 18 mEq/L (20-26); Blood Gas Modality ASSIST CONTROL; Blood Gas PEEP 5 cm H2O; Blood Gas Respiration Rate 16; Blood Gas VT 400 cc
[2017-12-11 05:34] LABS: Basophils % 0.3 %; Eosinophils % 0.2 %; Hematocrit 24.5 % (35.3-44.9); Hemoglobin 8.1 g/dL (11.5-15.4); Immature Granulocytes % 0.5 % (0-4); Lymphocytes # 1.4 K/mcL (0.6-4.6); Lymphocytes % 13.5 %; Mean Corpuscular HGB Conc 33.1 g/dL (31.6-35.5); Mean Corpuscular Hemoglobin 31.5 pg (28.0-33.3); Mean Corpuscular Volume 95.3 fL (83.0-100.0); Mean Platelet Volume 9.4 fL (9.4-12.4); Monocytes # 0.6 K/mcL (0.0-1.3); Monocytes % 6.1 %; Neutrophils # 8.3 K/mcL (1.6-8.9); Platelet Count 316 K/mcL (140-400); Red Blood Count 2.57 M/mcL (3.82-4.97); Red Cell Distribution Width 13.4 % (11.5-14.5); Segmented Neutrophils % 79.4 %
[2017-12-11 05:54] LABS: BUN/Creatinine Ratio 10 (6-26); Blood Urea Nitrogen 11 mg/dL (6-20); Calcium 6.8 mg/dL (8.6-10.3); Carbon Dioxide 18 mEq/L (23-29); Chloride 121 mEq/L (98-107); Glucose 169 mg/dL (70-105); Osmolality,Calculated 311 (280-300); Potassium 3.4 mEq/L (3.5-5.1); Sodium 149 mEq/L (136-145); eGFR For Non-African Americans 60 (> 60)
--- NOTE | 2017-12-11 09:09 | Electrocardiograph Report ---
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
[2017-12-11] MEDS: Potassium Chloride 20 MEQ in D5% in Water 1,000 ML IVC SCH ×2 (09:23→14:00)
--- NOTE | 2017-12-11 09:39 | Pulmonology Progress Note ---
<Christelle Cortes Blake - Last Filed: 12/11/17 09:39> Date of Encounter: 12/11/17 Time of Encounter: 09:24 Objective PUL Vital signs: Last Vital Signs Temp 98.3 F 12/11/17 07:00 Pulse 111 12/11/17 09:00 Resp 20 12/11/17 09:00 BP 125/79 12/11/17 09:00 Pulse Ox 100 12/11/17 09:00 Ventilator Settings Ventilator Settings: Ventilator Settings, Last 8 Hours Ventilator Tidal Volume 400 Setting Ventilator Tidal Volume 400 Setting Ventilator Tidal Volume 400 Setting Ventilator Tidal Volume 400 Setting Ventilator Tidal Volume 400 Setting Ventilator Tidal Volume 400 Setting Ventilator Tidal Volume 400 Setting Ventilator Tidal Volume 400 Setting Ventilator Respiratory Rate 16 Setting Ventilator Respiratory Rate 16 Setting Ventilator Respiratory Rate 16 Setting Ventilator Respiratory Rate 16 Setting Ventilator Respiratory Rate 16 Setting Ventilator Respiratory Rate 16 Setting Ventilator Respiratory Rate 16 Setting Ventilator Respiratory Rate 16 Setting Actual Respiratory Rate 18 Actual Respiratory Rate 19 Actual Respiratory Rate 17 Actual Respiratory Rate 16 Actual Respiratory Rate 17 Actual Respiratory Rate 23 Actual Respiratory Rate 21 Actual Respiratory Rate 19 Actual Respiratory Rate 17 Positive End Expiratory 5 Pressure Positive End Expiratory 5 Pressure Positive End Expiratory 5 Pressure Positive End Expiratory 5 Pressure Positive End Expiratory 5 Pressure Positive End Expiratory 5 Pressure Positive End Expiratory 5 Pressure Positive End Expiratory 5 Pressure Positive End Expiratory 5 Pressure Positive End Expiratory 5 Pressure Peak Inspiratory Airway 10 Pressure Peak Inspiratory Airway 11 Pressure Peak Inspiratory Airway 18 Pressure Peak Inspiratory Airway 16 Pressure Peak Inspiratory Airway 17 Pressure Peak Inspiratory Airway 8 Pressure Peak Inspiratory Airway 6.8 Pressure Peak Inspiratory Airway 10 Pressure Peak Inspiratory Airway 11 Pressure Results - Laboratory Findings CBC and BMP: 12/11/17 05:12 12/11/17 05:13 ABG ABG pH 7.32 pH Units (7.32-7.45) 12/11/17 04:42 ABG pCO2 34 mmHg (35-45) L 12/11/17 04:42 ABG pO2 181 mmHg (85-104) H 12/11/17 04:42 ABG O2 Saturation 100 % (95-98) H 12/11/17 04:42 PT/INR, D-dimer PT 10.7 Seconds (9.4-12.1) 12/10/17 10:55 Abnormal lab findings: Abnormal lab results RBC 2.57 M/mcL (3.82-4.97) L 12/11/17 05:12 Hgb 8.1 g/dL (11.5-15.4) L 12/11/17 05:12 Hct 24.5 % (35.3-44.9) L 12/11/17 05:12 Platelet Estimate Increased (Normal) H 12/10/17 07:00 ABG pCO2 34 mmHg (35-45) L 12/11/17 04:42 ABG pO2 181 mmHg (85-104) H 12/11/17 04:42 ABG HCO3 17 mEq/L (21-27) L 12/11/17 04:42 ABG Total CO2 18 mEq/L (20-26) L 12/11/17 04:42 ABG O2 Saturation 100 % (95-98) H 12/11/17 04:42 ABG Base Excess -8 mEq/L (-2 to 3) L 12/11/17 04:42 Sodium 149 mEq/L (136-145) H 12/11/17 05:13 Potassium 3.4 mEq/L (3.5-5.1) L 12/11/17 05:13 Chloride 121 mEq/L (98-107) H 12/11/17 05:13 Carbon Dioxide 18 mEq/L (23-29) L 12/11/17 05:13 Glucose 169 mg/dL (70-105) H 12/11/17 05:13 Serum Osmolality 362 mOsm/kg (280-300) H 12/10/17 09:39 Calculated Osmolality 311 (280-300) H 12/11/17 05:13 Lactic Acid 3.9 mmol/L (0.5-2.2) H 12/10/17 23:00 Calcium 6.8 mg/dL (8.6-10.3) L 12/11/17 05:13 Venous Ioniz Calcium 1.03 mmol/L (1.15-1.35) L 12/10/17 16:09 Phosphorus 2.1 mg/dL (2.7-4.5) L 12/10/17 17:00 Magnesium 2.7 mg/dL (1.6-2.6) H 12/10/17 07:00 Alkaline Phosphatase 150 Units/L (34-104) H 12/10/17 17:00 Serum Total Protein 4.7 g/dL (6.4-8.9) L 12/10/17 17:00 Albumin 2.7 g/dL (3.5-5.7) L 12/10/17 17:00 Globulin 2.0 g/dL (2.4-3.5) L 12/10/17 17:00 Beta-Hydroxybutyric Acd > 2.00 mmol/L (0.02-0.27) H 12/10/17 07:00 Urine Clarity Turbid (Clear) A 12/10/17 21:25 Urine Protein 100 mg/dL (Neg-Trace) H 12/10/17 21:25 Urine Glucose (UA) 250 mg/dL (Normal) H 12/10/17 21:25 Urine Ketones 40 mg/dL (Negative) H 12/10/17 21:25 Urine Blood Moderate (Negative) H 12/10/17 21:25 Urine Bilirubin Large (Negative) H 12/10/17 21:25 Ur Leukocyte Esterase Trace (Negative) H 12/10/17 21:25 Urine Microscopic RBC 5-15 per hpf (0-3) H 12/10/17 21:25 Ur Squamous Epith Cells Many per lpf (None-Few) H 12/10/17 21:25 Amorphous Sediment Many (Few) H 12/10/17 21:25 Urine Bacteria Many per hpf (None-Few) H 12/10/17 21:25 Salicylates < 2.5 mg/dL (15.0-30.0) L 12/10/17 07:00 Acetaminophen < 10 mcg/mL (10-20) L 12/10/17 07:00 - Microbiology Findings Microbiology Findings: Microbiology, Last 48 Hours 12/11/17 01:04 Sputum Culture - Preliminary Sputum - Clinical Findings Intake & Output: Intake & Output 12/10/17 12/11/17 12/11/17 23:59 07:59 15:59 Intake Total 2337.452 / 2337.452 2364.1 / 2364.1 Output Total 675 / 675 1400 / 1400 Balance 1662.452 / 1662.452 964.1 / 964.1 Weight 51 kg - VTE Documentation of Mechanical Device: Intermittent pneumatic compression device Consult Discharge Plan - Plan Referrals: NONE,PCP [Primary Care Provider] - <Enid Vargas - Last Filed: 12/11/17 14:17> Date of Encounter: 12/11/17 Objective PUL Vital signs: Last Vital Signs Temp 97.8 F 12/11/17 11:00 Pulse 106 12/11/17 13:00 Resp 20 12/11/17 13:00 BP 141/97 12/11/17 13:00 Pulse Ox 99 12/11/17 13:00 Ventilator Settings Ventilator Settings: Ventilator Settings, Last 8 Hours Actual Respiratory Rate 18 Actual Respiratory Rate 19 Positive End Expiratory 5 Pressure Positive End Expiratory 5 Pressure Peak Inspiratory Airway 10 Pressure Peak Inspiratory Airway 11 Pressure Results - Laboratory Findings CBC and BMP: 12/11/17 05:12 12/11/17 05:13 ABG ABG pH 7.32 pH Units (7.32-7.45) 12/11/17 04:42 ABG pCO2 34 mmHg (35-45) L 12/11/17 04:42 ABG pO2 181 mmHg (85-104) H 12/11/17 04:42 ABG O2 Saturation 100 % (95-98) H 12/11/17 04:42 PT/INR, D-dimer PT 10.7 Seconds (9.4-12.1) 12/10/17 10:55 Abnormal lab findings: Abnormal lab results RBC 2.57 M/mcL (3.82-4.97) L 12/11/17 05:12 Hgb 8.1 g/dL (11.5-15.4) L 12/11/17 05:12 Hct 24.5 % (35.3-44.9) L 12/11/17 05:12 Platelet Estimate Increased (Normal) H 12/10/17 07:00 ABG pCO2 34 mmHg (35-45) L 12/11/17 04:42 ABG pO2 181 mmHg (85-104) H 12/11/17 04:42 ABG HCO3 17 mEq/L (21-27) L 12/11/17 04:42 ABG Total CO2 18 mEq/L (20-26) L 12/11/17 04:42 ABG O2 Saturation 100 % (95-98) H 12/11/17 04:42 ABG Base Excess -8 mEq/L (-2 to 3) L 12/11/17 04:42 Sodium 149 mEq/L (136-145) H 12/11/17 05:13 Potassium 3.4 mEq/L (3.5-5.1) L 12/11/17 05:13 Chloride 121 mEq/L (98-107) H 12/11/17 05:13 Carbon Dioxide 18 mEq/L (23-29) L 12/11/17 05:13 Glucose 169 mg/dL (70-105) H 12/11/17 05:13 POC Glucose 135 mg/dL (70-99) H 12/11/17 13:47 Serum Osmolality 362 mOsm/kg (280-300) H 12/10/17 09:39 Calculated Osmolality 311 (280-300) H 12/11/17 05:13 Lactic Acid 3.9 mmol/L (0.5-2.2) H 12/10/17 23:00 Calcium 6.8 mg/dL (8.6-10.3) L 12/11/17 05:13 Venous Ioniz Calcium 1.03 mmol/L (1.15-1.35) L 12/10/17 16:09 Phosphorus 2.1 mg/dL (2.7-4.5) L 12/10/17 17:00 Magnesium 2.7 mg/dL (1.6-2.6) H 12/10/17 07:00 Alkaline Phosphatase 150 Units/L (34-104) H 12/10/17 17:00 Serum Total Protein 4.7 g/dL (6.4-8.9) L 12/10/17 17:00 Albumin 2.7 g/dL (3.5-5.7) L 12/10/17 17:00 Globulin 2.0 g/dL (2.4-3.5) L 12/10/17 17:00 Beta-Hydroxybutyric Acd > 2.00 mmol/L (0.02-0.27) H 12/10/17 07:00 Urine Clarity Turbid (Clear) A 12/10/17 21:25 Urine Protein 100 mg/dL (Neg-Trace) H 12/10/17 21:25 Urine Glucose (UA) 250 mg/dL (Normal) H 12/10/17 21:25 Urine Ketones 40 mg/dL (Negative) H 12/10/17 21:25 Urine Blood Moderate (Negative) H 12/10/17 21:25 Urine Bilirubin Large (Negative) H 12/10/17 21:25 Ur Leukocyte Esterase Trace (Negative) H 12/10/17 21:25 Urine Microscopic RBC 5-15 per hpf (0-3) H 12/10/17 21:25 Ur Squamous Epith Cells Many per lpf (None-Few) H 12/10/17 21:25 Amorphous Sediment Many (Few) H 12/10/17 21:25 Urine Bacteria Many per hpf (None-Few) H 12/10/17 21:25 Salicylates < 2.5 mg/dL (15.0-30.0) L 12/10/17 07:00 Acetaminophen < 10 mcg/mL (10-20) L 12/10/17 07:00 - Microbiology Findings Microbiology Findings: Microbiology, Last 48 Hours 12/10/17 11:20 Urine Culture - Preliminary Urine,Catheterized No growth. 12/11/17 01:04 Sputum Culture - Preliminary Sputum - Clinical Findings Intake & Output: Intake & Output 12/10/17 12/11/17 12/11/17 23:59 07:59 15:59 Intake Total 2337.452 / 2337.452 2364.1 / 2364.1 522.8 / 522.8 Output Total 675 / 675 1400 / 1400 400 / 400 Balance 1662.452 / 1662.452 964.1 / 964.1 122.8 / 122.8 Weight 51 kg - Attending Attestation I saw and evaluated this patient and my medical decision-making was reviewed with the Resident Physician. I agree with the documented findings, disposition and treatment plan as described except to the extent set forth below. We independently had [id number] contact with the patient I spent 32 minutes of Critical Care time with this patient. It involved decision making of high complexity to assess, manipulate, and support vital organ system failure and/or to prevent further life threatening deterioration of the patient's condition. The time involved in the performance of separately reportable procedures was not counted toward critical care time. Patient seen and examined at bedside Labs, radiology, chart personally reviewed. Management was reviewed during multidisciplinary critical care rounds. RETORT SETTER: Patient is conscious following commands she is intubated we will stop the sedation will try to wake her up and she is appropriate will try to extubate her today. Pulm: Patient has acceptable V/Q mismatch with acceptable oxygenation and ventilation to 6 intentional any evidence of pneumonia we will hold off antibiotics for now patient passed the spontaneous breathing trial if the parameters looks good will try to extubated today morning Cards: Hemodynamically stable FEN-GI: Should not Fisher upper GI bleed probably Jessa-Hardy tear will hold off diet until GI sees for possible endoscopy Renal: Creatinine is improving labs and output reviewed ID: Patient is not have active infectious issues. Heme/Onc: Patient has thromboprophylaxis Endo: Glucose Monitored . Has this recurrent Diabetic Keto- acidosis patient will need outpatient endocrinology follow-up . The insulin drip for now when she starts eating will change to subcutaneous insulin Integ/MSK: Skin Care per routine ICU Nursing Protocol to prevent ulcers. Lines: All lines examined without evidence of infection : Dispo: Transfer her out to when stable CODE: Full Code
[2017-12-11] MEDS: Insulin Human Regular 100 UNIT in 0.9 % Sodium Chloride 100 ML IVC SCH ×2 (10:00→10:16)
[2017-12-11] MEDS: *HR* Promethazine 25 MG/ML VIAL IVP PRN ×2 (10:39→22:39)
--- NOTE | 2017-12-11 13:12 | Gastroenterology Consult Note ---
<Rebecca Marino - Last Filed: 12/11/17 13:05> Date of Encounter: 12/11/17 Time of Encounter: 11:00 - Assessment and plan (1) Coffee ground emesis Status: Acute Assessment and plan: Pt presented unresposive, was intubated. She has frequent DKA and chronic anemia. She had EGD 05/11 which was normal. Coffee ground emesis may be related to DKA. Will monitor H&H. Abdomen is firm and tender, may need repeat EGD will discuss with Dr Mcknight. (2) Nausea & vomiting Status: Acute Qualifiers: Vomiting type: unspecified Vomiting Intractability: non-intractable Qualified Code(s): R11.2 - Nausea with vomiting, unspecified (3) Abdominal pain Status: Acute Qualifiers: Abdominal location: right lower quadrant Qualified Code(s): R10.31 - Right lower quadrant pain (4) Intractable nausea and vomiting Status: Acute Qualifiers: Vomiting type: unspecified Qualified Code(s): R11.2 - Nausea with vomiting , unspecified (5) DKA (diabetic ketoacidoses) Status: Resolved Qualifiers: Diabetes mellitus type: type 1 Diabetes mellitus complication detail: without coma Qualified Code(s): E10.10 - Type 1 diabetes mellitus with ketoacidosis without coma - Time Spent With Patient Total time spent is greater than 50% in coordination of care (as documented) at patient's floor/unit and/or counseling patient: GI History of Present Illness - Data of Consult Patient: known to practice within the last 3 years Consult date: 12/11/17 Requesting Physician: Jean Paul Maravilla MD - Consult Narrative Reason for consult: coffee ground emesis History of present illness: Ms. Sierra is a 32 year old female who came to the ED because of unresponsiveness. According to the patient's she had multiple episodes of 'dark vomiting' for the past few day accompanied with stomach pain. She didn't have any episodes of diarrhea. He denies any recent travel, recent infection or any other family member being sick at home. Patient does have a Hx of gastroparesis secondary to her chronic DM1.Most recent A1C as of 08/02/17 being 9.6. She has frequent admissions for DKA. Initial workup in the ED showed that her glucose was 1287, lactic acid : 4.3, ABG showed metabolic acidosis with pH: 6.94, pCO2: < 13, K : 7.5 , with beta -hydroxybutyric acid > 2.0. Her toxicology screen was unremarkable. Her UA was negative as well. She was found to be in sepsis with HR: 138 and leukocytotic with a WBC : 26.8, HgB 10.8. Her initial physical exam showed pupils were dilated and non-reactive, mucous membranes were dry, with deep respirations (30) , HR: 138, BP : 140/66. She was intubated and sedate with Versed and Rocuronium and sent to the ICU for further management of DKA and sepsis. She has since been extubated. She reports coffee ground emesis for approximately 3 days before admission. 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 She has continued abdominal pain and nausea. EGD 05/11 normal Colon: 09/07 poor prep Past Med Surg Social Fam HX - Past Medical History Medical history: diabetes Additional medical history: detached retina left eye Psychiatric history: no psych history - Past Surgical History Surgical History: appendectomy, , cholecystectomy, sinus surgery, other Additional surgical history: eye surgery - Social History Smoking Status: Unknown if ever smoked Smokeless Tobacco Status: No Alcohol use: unknown Drug use: unknown - Family History Grandmother Family Member Ethnicity: Non- Living Status: Still Living Hx Family Cardiac Disorders: No Hx Family Respiratory Disorders: No Hx Family Cancer: No Hx Family GI Disorders: No Hx Family Endocrine Disorder: Yes (type 2 diabetes) Hx Family Neuromuscular Disorders: No Hx Family Neurologic Disorders: Yes (stroke) Hx Family HEENT Disorders: No Hx Family Autoimmune Disorders: No Review of Systems: GI: as per [facility] GENERAL: denies fever, has some chills EYES: denies yellow discoloration ENT: denies pain with swallowing or difficulty swallowing CARDIO: denies chest pain, palpitations RESP: No Shortness of breath with exertion : denies change in color of urine NEURO: weakness HEME: Denies any bruising MS: chronic deepti and joint pain. DERM: denies rash or itching PSYCH: Denies history of anxiety or depression - Constitutional Vitals: Temp Pulse Resp BP Pulse Ox 97.8 F 112 20 125/83 100 12/11/17 11:00 12/11/17 12:00 12/11/17 12:00 12/11/17 12:00 12/11/17 12:00 Exam: CONSTITUTIONAL:~alert, no acute distress.~HEAD:~normocephalic.~EYES:~no jaundice.~NECK:~no obvious swelling.~HEART:~regular rate and rhythm, no murmurs. ~LUNGS:~bilateral fair air entry.~ABDOMEN:~ distended, firm, tender, no masses palpable, no organomegaly.~RECTAL EXAM:~Deferred.~EXTREMITIES:~no clubbing, cyanosis or edema.~SKIN:~pallor noted, no stigmata of chronic liver disease.~ NEUROLOGIC:~no obvious focal defect.~~~~ Results - Labs CBC & Chem 7: 12/11/17 05:12 12/11/17 05:13 Labs: Last Result Calcium 6.8 mg/dL (8.6-10.3) L 12/11/17 05:13 Troponin I < 0.03 ng/mL (< 0.04) 12/10/17 07:00 Salicylates < 2.5 mg/dL (15.0-30.0) L 12/10/17 07:00 Urine Opiates Screen Negative ng/mL (Elqosz=903) 12/10/17 07:24 Entire Visit Hgb 8.1 g/dL (11.5-15.4) L 12/11/17 05:12 Hct 24.5 % (35.3-44.9) L 12/11/17 05:12 PT 10.7 Seconds (9.4-12.1) 12/10/17 10:55 Total Bilirubin 0.3 mg/dL (0.3-1.0) 12/10/17 17:00 AST 14 Units/L (13-39) 12/10/17 17:00 ALT 13 Units/L (7-52) 12/10/17 17:00 Acetaminophen < 10 mcg/mL (10-20) L 12/10/17 07:00 - ABG ABG results: ABG ABG pH 7.32 pH Units (7.32-7.45) 12/11/17 04:42 ABG pCO2 34 mmHg (35-45) L 12/11/17 04:42 ABG pO2 181 mmHg (85-104) H 12/11/17 04:42 ABG O2 Saturation 100 % (95-98) H 12/11/17 04:42 PT/INR, D-dimer PT 10.7 Seconds (9.4-12.1) 12/10/17 10:55 - Impressions Impressions Chest X-Ray 12/10/17 16:43 IMPRESSION: Enteric tube has been placed with the tip approximately 10 mm above the level of the yahaira. Consider retracting 1-2 cm. D/ / 12/10/2017 17:19:23 Ab Reinoso MD / perez Interpreting Provider: Ab Reinoso MD Abdomen/Pelvis CT 12/10/17 16:50 IMPRESSION: 1. Suboptimal evaluation without IV contrast. No definite acute bowel activity is evident. 2. Blood pool density of the heart is lower than that of the myocardium, typical of anemia. 3. NG tube tip is at the gastric body. D/ / David Macias / David Macias Interpreting Provider: David Macias Consult Discharge Plan - Plan Instructions: Diabetic Ketoacidosis (DC), Infectious Colitis, Timber Deadener ( GEN) Additional Instructions: Follow-up appointments: If there is not an appointment listed below, please call your physician and schedule a follow-up appointment. If you have congestive heart failure and your symptoms return, make an appointment with your physician. Medication List: Carry an up to date list of medications you are taking at all time. We have given you an updated medication list including any new medications that you have been prescribed. Please provide that list to your primary provider Symptoms: If your condition changes or you experience any of the following symptoms, notify your physician immediately: Unusual or worsening pain, fever, persistent nausea and vomiting, bleeding, increase in swelling (especially in your legs), sudden weight gain, extreme dizziness, chest pain, increased drainage or redness from a wound or incision. Go to the emergency department if you experience a problem with breathing. Weights: If you have a history of swelling or shortness of breath, weigh yourself daily and notify your physician if you have a weight gain of two or more pounds in one day or 5 or more pounds in a week. If you experience any of the warning signs for stroke: Sudden numbness or weakness of the face, arm or leg; especially on one side of the body, sudden confusion, trouble speaking or understanding, sudden trouble seeing in one or both eyes, sudden trouble walking, dizziness, loss of balance or coordination, sudden sever headache with no cause; Call 911 or go to the emergency room. Stroke is a medical emergency. Some risk factors for stroke: Age, cigarette smoking, diabetes, excessive alcohol consumption, family history , high blood pressure, overweight, physical inactivity, prior stroke, heart attack, diagnosis of carotid artery stenosis or other artery disease. If you smoke, STOP: Smoking or tobacco use significantly increases your risk of heart and lung disease. Your chance of disease greatly increases if you continue to smoke. For more information, call the [employer] quit line for smoking cessation 7-113- QUIT-NOW ( ) Referrals: Josiah Lockhart MD [Partnered Physician] - (Please follow up as schedule...) Claudine Kraus PATIENT [facility] [Advanced Practice Nurse] - 01/30/18 10:50 am (Please follow up as schedule...) NONE,PCP [Primary Care Provider] - Prescriptions: Pantoprazole Sodium 40 mg PO BID 30 Days #60 tablet. Sucralfate [Carafate] 1 gm PO BID 30 Days #60 mls <Louie Mcknight - Last Filed: 01/09/18 14:47> Date of Encounter: 12/11/17 - Time Spent With Patient Total time spent is greater than 50% in coordination of care (as documented) at patient's floor/unit and/or counseling patient: GI History of Present Illness - Data of Consult Requesting Physician: Prince Tanner - Consult Narrative History of present illness: Ms. Sierra is a 32 year old female - Constitutional Vitals: Temp Pulse Resp BP Pulse Ox 98.1 F 102 16 148/85 97 12/19/17 12:01 12/19/17 12:01 12/19/17 12:01 12/19/17 12:01 12/19/17 12:01 Results - Labs CBC & Chem 7: 12/19/17 06:10 12/16/17 08:02 Labs: Last Result Calcium 8.2 mg/dL (8.6-10.3) L 12/16/17 08:02 Troponin I < 0.03 ng/mL (< 0.04) 12/10/17 07:00 Salicylates < 2.5 mg/dL (15.0-30.0) L 12/10/17 07:00 Urine Opiates Screen Negative ng/mL (Ghkoxl=464) 12/10/17 07:24 Entire Visit Hgb 7.9 g/dL (11.5-15.4) L D 12/19/17 06:10 Hct 24.0 % (35.3-44.9) L 12/19/17 06:10 PT 10.7 Seconds (9.4-12.1) 12/10/17 10:55 Total Bilirubin 0.5 mg/dL (0.3-1.0) 12/15/17 10:58 AST 252 Units/L (13-39) H 12/15/17 10:58 ALT 127 Units/L (7-52) H 12/15/17 10:58 Lipase 82 Units/L (11-82) 12/13/17 06:20 Acetaminophen < 10 mcg/mL (10-20) L 12/10/17 07:00 - ABG ABG results: ABG ABG pH 7.32 pH Units (7.32-7.45) 12/11/17 04:42 ABG pCO2 34 mmHg (35-45) L 12/11/17 04:42 ABG pO2 181 mmHg (85-104) H 12/11/17 04:42 ABG O2 Saturation 100 % (95-98) H 12/11/17 04:42 PT/INR, D-dimer PT 10.7 Seconds (9.4-12.1) 12/10/17 10:55 - Attending Attestation Patient presents with coffee ground emesis in setting of DKA. Will hold off EGD for now and follow clinical course. I have personally performed a face to face evaluation on this patient. I have reviewed and agree with the care plan. History and Exam by me shows:
--- NOTE | 2017-12-11 15:28 | Electrocardiograph Report ---
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
--- NOTE | 2017-12-11 15:28 | Electrocardiograph Report ---
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
[2017-12-11] MEDS ORDERED: *HR* Dextrose 50 % in Water (Syg) 50 ML SYRINGE IVP PRN (16:02)
[2017-12-11] MEDS ORDERED: Dextrose Gel 15 GM/37.5 ML TUBE PO PRN ×2 (16:02)
[2017-12-11] MEDS ORDERED: D5% in Water 1,000 ML IVC PRN (16:02)
[2017-12-11 16:16] LABS: Basophils % 0.4 %; Eosinophils # 0.1 K/mcL (0.0-0.6); Eosinophils % 0.7 %; Hematocrit 27.6 % (35.3-44.9); Hemoglobin 8.9 g/dL (11.5-15.4); Immature Granulocytes % 0.5 % (0-4); Lymphocytes # 1.9 K/mcL (0.6-4.6); Lymphocytes % 17.2 %; Mean Corpuscular HGB Conc 32.2 g/dL (31.6-35.5); Mean Corpuscular Hemoglobin 31.6 pg (28.0-33.3); Mean Corpuscular Volume 97.9 fL (83.0-100.0); Mean Platelet Volume 9.4 fL (9.4-12.4); Monocytes # 0.8 K/mcL (0.0-1.3); Monocytes % 7.2 %; Neutrophils # 8.1 K/mcL (1.6-8.9); Platelet Count 267 K/mcL (140-400); Red Blood Count 2.82 M/mcL (3.82-4.97); Red Cell Distribution Width 13.6 % (11.5-14.5)
[2017-12-11 16:35] LABS: BUN/Creatinine Ratio 8 (6-26); Blood Urea Nitrogen 7 mg/dL (6-20); Calcium 7.1 mg/dL (8.6-10.3); Carbon Dioxide 20 mEq/L (23-29); Chloride 117 mEq/L (98-107); Glucose 151 mg/dL (70-105); Osmolality,Calculated 297 (280-300); Potassium 4.5 mEq/L (3.5-5.1); Sodium 143 mEq/L (136-145); eGFR For Non-African Americans > 60 (> 60)
[2017-12-11] MEDS: Insulin LISPRO 300 UNITS/3 ML VIAL SQ SCH ×2 (17:19→19:55)
[2017-12-11] MEDS ORDERED: Ringers Solution, Lactated 1,000 ML ONE (17:20)
[2017-12-11] MEDS: Ringers Solution, Lactated 1,000 ML IVC ONE (17:34)
[2017-12-11] MEDS: Insulin DETEMIR 100 UNIT/ML X5UNITS SQ SCH (18:05)
[2017-12-11] MEDS ORDERED: D5% in 0.45% NACL 1,000 ML IVC ONE (18:37)
[2017-12-11] MEDS: D5% in 0.45% NACL 1,000 ML IVC SCH (18:40)
[2017-12-11] MEDS ORDERED: Isovue-370 500 ML INFUS..BTL IV ONE (21:18)
[2017-12-11] MEDS: OXYCODONE Oral CONC 10 MG/0.5 ML ORAL.SYG SL PRN (23:59)
[2017-12-11] MEDS ORDERED: Ringers Solution, Lactated 500 ML IVC ONE (23:59)
[2017-12-12] MEDS ORDERED: Ringers Solution, Lactated 1,000 ML ONE (00:02)
[2017-12-12] MEDS ORDERED: *HR* Labetalol 20 MG/4 ML SYRINGE IVP PRN (00:02)
[2017-12-12] MEDS: Ringers Solution, Lactated 1,000 ML IVC ONE (00:52)
[2017-12-12 02:03] LABS: Basophils % 0.3 %; Eosinophils # 0.1 K/mcL (0.0-0.6); Eosinophils % 1.3 %; Hematocrit 25.4 % (35.3-44.9); Hemoglobin 8.2 g/dL (11.5-15.4); Immature Granulocytes % 0.7 % (0-4); Lymphocytes # 1.6 K/mcL (0.6-4.6); Lymphocytes % 17.1 %; Mean Corpuscular HGB Conc 32.3 g/dL (31.6-35.5); Mean Corpuscular Hemoglobin 31.8 pg (28.0-33.3); Mean Corpuscular Volume 98.4 fL (83.0-100.0); Mean Platelet Volume 9.3 fL (9.4-12.4); Monocytes # 0.6 K/mcL (0.0-1.3); Monocytes % 6.2 %; Neutrophils # 7.1 K/mcL (1.6-8.9); Platelet Count 239 K/mcL (140-400); Red Blood Count 2.58 M/mcL (3.82-4.97); Red Cell Distribution Width 13.4 % (11.5-14.5); Segmented Neutrophils % 74.4 %
[2017-12-12 02:22] LABS: BUN/Creatinine Ratio 7 (6-26); Blood Urea Nitrogen 5 mg/dL (6-20); Calcium 6.8 mg/dL (8.6-10.3); Carbon Dioxide 16 mEq/L (23-29); Chloride 114 mEq/L (98-107); Glucose 324 mg/dL (70-105); Magnesium 1.4 mg/dL (1.6-2.6); Osmolality,Calculated 300 (280-300); Potassium 3.9 mEq/L (3.5-5.1); Sodium 140 mEq/L (136-145); eGFR For Non-African Americans > 60 (> 60)
[2017-12-12] MEDS: D5% in 0.45% NACL 1,000 ML IVC SCH ×3 (02:48→19:33)
[2017-12-12 03:43] LABS: Lipase 240 Units/L (11-82)
[2017-12-12] MEDS: Pantoprazole 40 MG in 0.9 % Sodium Chloride Mini Bag 100 ML IVC SCH ×3 (04:16→16:48)
[2017-12-12] MEDS ORDERED: 0.9 % Sodium Chloride 500 ML IVC ONE (04:18)
--- NOTE | 2017-12-12 06:35 | Pulmonology Progress Note ---
<Christelle Cortes Blake - Last Filed: 12/12/17 13:32> Date of Encounter: 12/12/17 Time of Encounter: 09:37 Assessment and Plan (1) Colitis Current Visit: Yes Status: Acute Likely secondary to hypoperfusion due to DKA with significant volume depletion. Patient was hypotensive on admission in the 80s-90s/40s-50s, which responded to fluids. Reported hypotension overnight also responded to fluids. Patient complaining of midline abdominal pain since extubation. On exam yesterday, belly was soft, but more firm on exam this morning. CTA abdomen 12/11- diffuse thickening of the distal transverse colon, splenic flexure and proximal descending colon. Unremarkable appearance of the small bowel. Lactic acid 6.4 --> 3.5 --> 4.3 --> 2.3 Continue Protonix drip Continue Promethazine PRN Continue Oxycodone 5mg SL Q8 GI consulted, pending recommendations. Consulted surgery. Will continue to monitor closely. (2) DKA (diabetic ketoacidoses) Current Visit: No Status: Resolved Likely secondary to infection or noncompliance. Patient has a history of multiple admissions for DKA. Patient was prophylactically intubated in the ED. Now off all sedation and was liberated form the vent 12/11. Glucose on admission 1287 --> 113 Anion gap 33 --> 10 PH 6.87 --> 7.32 Lactic acid 6.4 --> 2.3 K+ 7.5 --> 3.9 Continue DKA protocol and hypoglycemia control. Anion gap closed. Continue insulin drip. NPO. Continue maintenance IVF. Will continue to monitor lactic acid. Magnesium supplemented this morning. Will recheck on morning labs. Qualifiers: Diabetes mellitus type: type 1 Diabetes mellitus complication detail: without coma Qualified Code(s): E10.10 - Type 1 diabetes mellitus with ketoacidosis without coma (3) Acute respiratory failure Current Visit: Yes Status: Resolved Likely secondary to high anion gap metabolic acidosis secondary to DKA. Patient was liberated from the ventilator 12/11. Qualifiers: Respiratory failure complication: unspecified whether with hypoxia or hypercapnia Qualified Code(s): J96.00 - Acute respiratory failure, unspecified whether with hypoxia or hypercapnia (4) PAOLA (acute kidney injury) Current Visit: No Status: Resolved Likely secondary to prerenal azotemia from dehydration and osmosis due to extensive hyperglycemia caused by DKA Cr on admission of 2.00 --> 0.76 Continue to monitor urine output, serum creatinine, and electrolytes. (5) DVT prophylaxis Current Visit: No Status: Acute SCDs Subjective Principal diagnosis: DKA Interval history: Overnight, Mrs. Peoples lactate which was trending down, went back up to 4.3. Abdominal CTA suggested colitis. She became tachycardiac and reportedly hypotensive. She responded well to fluids. This morning, she complained of slight worsening abdominal pain and was more firm on exam with midline tenderness. Objective PUL Vital signs: Last Vital Signs Temp 98.7 F 12/12/17 02:57 Pulse 108 12/12/17 05:54 Resp 16 12/12/17 05:54 BP 136/83 12/12/17 05:54 Pulse Ox 97 12/12/17 05:54 General appearance: no acute distress, alert Eyes: nonicteric Effort: normal Auscultation: bilateral: clear, diminished breath sounds Cardiovascular: other (tachycardic, regular rhythm) Gastrointestinal: other (more firm compared to yesterday with midline tenderness ) Extremities: no cyanosis (swelling in patients hands ) normal mental status, pupils equal and round mood appropriate Results - Laboratory Findings CBC and BMP: 12/12/17 01:51 12/12/17 01:51 ABG ABG pH 7.32 pH Units (7.32-7.45) 12/11/17 04:42 ABG pCO2 34 mmHg (35-45) L 12/11/17 04:42 ABG pO2 181 mmHg (85-104) H 12/11/17 04:42 ABG O2 Saturation 100 % (95-98) H 12/11/17 04:42 PT/INR, D-dimer PT 10.7 Seconds (9.4-12.1) 12/10/17 10:55 Abnormal lab findings: Abnormal lab results RBC 2.58 M/mcL (3.82-4.97) L 12/12/17 01:51 Hgb 8.2 g/dL (11.5-15.4) L 12/12/17 01:51 Hct 25.4 % (35.3-44.9) L 12/12/17 01:51 MPV 9.3 fL (9.4-12.4) L 12/12/17 01:51 Platelet Estimate Increased (Normal) H 12/10/17 07:00 ABG pCO2 34 mmHg (35-45) L 12/11/17 04:42 ABG pO2 181 mmHg (85-104) H 12/11/17 04:42 ABG HCO3 17 mEq/L (21-27) L 12/11/17 04:42 ABG Total CO2 18 mEq/L (20-26) L 12/11/17 04:42 ABG O2 Saturation 100 % (95-98) H 12/11/17 04:42 ABG Base Excess -8 mEq/L (-2 to 3) L 12/11/17 04:42 Chloride 114 mEq/L (98-107) H 12/12/17 01:51 Carbon Dioxide 16 mEq/L (23-29) L 12/12/17 01:51 BUN 5 mg/dL (6-20) L 12/12/17 01:51 Glucose 324 mg/dL (70-105) H 12/12/17 01:51 POC Glucose 163 mg/dL (70-99) H 12/12/17 05:57 Serum Osmolality 362 mOsm/kg (280-300) H 12/10/17 09:39 Lactic Acid 4.3 mmol/L (0.5-2.2) H* 12/12/17 01:51 Calcium 6.8 mg/dL (8.6-10.3) L 12/12/17 01:51 Venous Ioniz Calcium 1.03 mmol/L (1.15-1.35) L 12/10/17 16:09 Phosphorus 2.1 mg/dL (2.7-4.5) L 12/10/17 17:00 Magnesium 1.4 mg/dL (1.6-2.6) L 12/12/17 01:51 Alkaline Phosphatase 150 Units/L (34-104) H 12/10/17 17:00 Serum Total Protein 4.7 g/dL (6.4-8.9) L 12/10/17 17:00 Albumin 2.7 g/dL (3.5-5.7) L 12/10/17 17:00 Globulin 2.0 g/dL (2.4-3.5) L 12/10/17 17:00 Lipase 240 Units/L (11-82) H 12/12/17 01:51 Beta-Hydroxybutyric Acd > 2.00 mmol/L (0.02-0.27) H 12/10/17 07:00 Urine Clarity Turbid (Clear) A 12/10/17 21:25 Urine Protein 100 mg/dL (Neg-Trace) H 12/10/17 21:25 Urine Glucose (UA) 250 mg/dL (Normal) H 12/10/17 21:25 Urine Ketones 40 mg/dL (Negative) H 12/10/17 21:25 Urine Blood Moderate (Negative) H 12/10/17 21:25 Urine Bilirubin Large (Negative) H 12/10/17 21:25 Ur Leukocyte Esterase Trace (Negative) H 12/10/17 21:25 Urine Microscopic RBC 5-15 per hpf (0-3) H 12/10/17 21:25 Ur Squamous Epith Cells Many per lpf (None-Few) H 12/10/17 21:25 Amorphous Sediment Many (Few) H 12/10/17 21:25 Urine Bacteria Many per hpf (None-Few) H 12/10/17 21:25 Salicylates < 2.5 mg/dL (15.0-30.0) L 12/10/17 07:00 Acetaminophen < 10 mcg/mL (10-20) L 12/10/17 07:00 - Microbiology Findings Microbiology Findings: Microbiology, Last 48 Hours 12/11/17 21:49 Blood Culture - Preliminary Peripheral Venipuncture Culture is incubating and being continuously monitored for growth. Final report to follow. 12/11/17 21:49 Blood Culture - Preliminary Peripheral Venipuncture Culture is incubating and being continuously monitored for growth. Final report to follow. 12/10/17 11:20 Urine Culture - Preliminary Urine,Catheterized No growth. 12/11/17 01:04 Sputum Culture - Preliminary Sputum - Clinical Findings Intake & Output: Intake & Output 12/11/17 12/11/17 12/12/17 15:59 23:59 07:59 Intake Total 1632.8 / 1632.8 2707 / 2707 1720.6 / 1720.6 Output Total 1600 / 1600 1100 / 1100 850 / 850 Balance 32.8 / 32.8 1607 / 1607 870.6 / 870.6 - VTE Documentation of Mechanical Device: Intermittent pneumatic compression device Consult Discharge Plan - Plan Referrals: NONE,PCP [Primary Care Provider] - <Enid Vargas - Last Filed: 12/12/17 21:42> Date of Encounter: 12/12/17 Objective PUL Vital signs: Last Vital Signs Temp 99.0 F 12/12/17 20:53 Pulse 111 12/12/17 18:00 Resp 20 12/12/17 18:00 BP 148/88 12/12/17 18:00 Pulse Ox 96 12/12/17 18:00 Results - Laboratory Findings CBC and BMP: 12/12/17 01:51 12/12/17 01:51 ABG ABG pH 7.32 pH Units (7.32-7.45) 12/11/17 04:42 ABG pCO2 34 mmHg (35-45) L 12/11/17 04:42 ABG pO2 181 mmHg (85-104) H 12/11/17 04:42 ABG O2 Saturation 100 % (95-98) H 12/11/17 04:42 PT/INR, D-dimer PT 10.7 Seconds (9.4-12.1) 12/10/17 10:55 Abnormal lab findings: Abnormal lab results RBC 2.58 M/mcL (3.82-4.97) L 12/12/17 01:51 Hgb 8.2 g/dL (11.5-15.4) L 12/12/17 01:51 Hct 25.4 % (35.3-44.9) L 12/12/17 01:51 MPV 9.3 fL (9.4-12.4) L 12/12/17 01:51 Platelet Estimate Increased (Normal) H 12/10/17 07:00 ABG pCO2 34 mmHg (35-45) L 12/11/17 04:42 ABG pO2 181 mmHg (85-104) H 12/11/17 04:42 ABG HCO3 17 mEq/L (21-27) L 12/11/17 04:42 ABG Total CO2 18 mEq/L (20-26) L 12/11/17 04:42 ABG O2 Saturation 100 % (95-98) H 12/11/17 04:42 ABG Base Excess -8 mEq/L (-2 to 3) L 12/11/17 04:42 Chloride 114 mEq/L (98-107) H 12/12/17 01:51 Carbon Dioxide 16 mEq/L (23-29) L 12/12/17 01:51 BUN 5 mg/dL (6-20) L 12/12/17 01:51 Glucose 324 mg/dL (70-105) H 12/12/17 01:51 POC Glucose 168 mg/dL (70-99) H 12/12/17 21:05 Serum Osmolality 362 mOsm/kg (280-300) H 12/10/17 09:39 Lactic Acid 2.3 mmol/L (0.5-2.2) H 12/12/17 18:03 Calcium 6.8 mg/dL (8.6-10.3) L 12/12/17 01:51 Venous Ioniz Calcium 1.03 mmol/L (1.15-1.35) L 12/10/17 16:09 Phosphorus 2.1 mg/dL (2.7-4.5) L 12/10/17 17:00 Magnesium 1.4 mg/dL (1.6-2.6) L 12/12/17 01:51 AST 12 Units/L (13-39) L 12/12/17 01:51 Alkaline Phosphatase 156 Units/L (34-104) H 12/12/17 01:51 Serum Total Protein 4.3 g/dL (6.4-8.9) L 12/12/17 01:51 Albumin 2.3 g/dL (3.5-5.7) L 12/12/17 01:51 Globulin 2.0 g/dL (2.4-3.5) L 12/12/17 01:51 Lipase 240 Units/L (11-82) H 12/12/17 01:51 Beta-Hydroxybutyric Acd > 2.00 mmol/L (0.02-0.27) H 12/10/17 07:00 Urine Clarity Turbid (Clear) A 12/10/17 21:25 Urine Protein 100 mg/dL (Neg-Trace) H 12/10/17 21:25 Urine Glucose (UA) 250 mg/dL (Normal) H 12/10/17 21:25 Urine Ketones 40 mg/dL (Negative) H 12/10/17 21:25 Urine Blood Moderate (Negative) H 12/10/17 21:25 Urine Bilirubin Large (Negative) H 12/10/17 21:25 Ur Leukocyte Esterase Trace (Negative) H 12/10/17 21:25 Urine Microscopic RBC 5-15 per hpf (0-3) H 12/10/17 21:25 Ur Squamous Epith Cells Many per lpf (None-Few) H 12/10/17 21:25 Amorphous Sediment Many (Few) H 12/10/17 21:25 Urine Bacteria Many per hpf (None-Few) H 12/10/17 21:25 Salicylates < 2.5 mg/dL (15.0-30.0) L 12/10/17 07:00 Acetaminophen < 10 mcg/mL (10-20) L 12/10/17 07:00 - Microbiology Findings Microbiology Findings: Microbiology, Last 48 Hours 12/10/17 11:20 Urine Culture - Final Urine,Catheterized No growth. 12/11/17 01:04 Sputum Culture - Preliminary Sputum 12/11/17 21:49 Blood Culture - Preliminary Peripheral Venipuncture Culture is incubating and being continuously monitored for growth. Final report to follow. 12/11/17 21:49 Blood Culture - Preliminary Peripheral Venipuncture Culture is incubating and being continuously monitored for growth. Final report to follow. - Clinical Findings Intake & Output: Intake & Output 12/12/17 12/12/17 12/12/17 07:59 15:59 23:59 Intake Total 1720.6 / 1720.6 1212.4 / 1212.4 1480 / 1480 Output Total 850 / 850 1050 / 1050 1900 / 1900 Balance 870.6 / 870.6 162.4 / 162.4 -420 / -420 - Attending Attestation - Attending Attestation I saw and evaluated this patient and my medical decision-making was reviewed with the Resident Physician. I agree with the documented findings, disposition and treatment plan as described except to the extent set forth below. We independently had [id number] contact with the patient Patient seen and examined at bedside Labs, radiology, chart personally reviewed. Management was reviewed during multidisciplinary critical care rounds. CITY ADMINISTRATOR: Patient is conscious oriented x 3 metabolic encephalopathy was resolved Pulm: Patient has acceptable V/Q mismatch will liberate oxygen as tolerated CT chest showed some trace pleural effusion probably secondary to volume repletion Cards: Hemodynamically stable . In this tachycardia FEN-GI: Did not have any more episodes of hematemesis chair holding off endoscopy is tonight she had more guarding and rigidity CTA showed ischemic colitis more of the colonic area small bowel area SMA and MICHAEL are patent most likely the colonic ischemia will get better lactate is trending down surgery Dr. Kraus was consulted that according to patient's 's request. Renal: Creatinine is improving labs and output reviewed ID: Patient and blood cultures growing organism patient was started on broad- spectrum antibiotics with borderline vancomycin possible COPD but is low likelihood will de-escalate oral vancomycin tomorrow Heme/Onc: Patient has thromboprophylaxis Endo: Glucose Monitored . Has this recurrent Diabetic Keto- acidosis patient will need outpatient endocrinology follow-up . The insulin drip for now when she starts eating will change to subcutaneous insulin Integ/MSK: Skin Care per routine ICU Nursing Protocol to prevent ulcers. Lines: All lines examined without evidence of infection : Dispo: Has high chance of decline to remain in the ICU . CODE: Full Code
[2017-12-12] MEDS: Insulin LISPRO 300 UNITS/3 ML VIAL SQ SCH ×4 (07:15→19:40)
[2017-12-12] MEDS: Piperacillin/Tazobactam 3.375 GM in 0.9 % Sodium Chloride Mini Bag 100 ML IVPB SCH ×3 (07:18→23:30)
[2017-12-12] MEDS: *HR* Promethazine 25 MG/ML VIAL IVP PRN ×2 (07:21→15:43)
[2017-12-12 08:07] LABS: Alanine Aminotransferase 9 Units/L (7-52); Albumin 2.3 g/dL (3.5-5.7); Albumin/Globulin Ratio 1.2 (1.1-2.2); Alkaline Phosphatase 156 Units/L (34-104); Aspartate Amino Transferase 12 Units/L (13-39); Bilirubin,Direct 0.1 mg/dL (0.0-0.2); Bilirubin,Indirect 0.3 mg/dL (0.0-1.2); Bilirubin,Total 0.4 mg/dL (0.3-1.0); Total Protein 4.3 g/dL (6.4-8.9)
--- NOTE | 2017-12-12 08:36 | Procedure Note ---
<Christelle Cortes - Last Filed: 12/12/17 08:32> Date of procedure: 12/12/17 Pre-op diagnosis: DKA Post-op diagnosis: same Procedure: Consent was obtained, the patient was placed in supine position and the area was prepped and draped in a sterile fashion. Time out was performed. The area over the right IJ was anesthetized using 5cc's of 1% lidocaine. Using the ultrasound, the IJ was identified, and a cook needle was used to cannulate the vein. Dark, non-pulsatile blood was seen. Using the Seldinger technique, a guidewire was passed through the needle and the needle was withdrawn. Re- examined with the ultrasound and visualized the wire within the vessel. A small incision was made and a dilator sheath was then passed over the guidewire and then removed. The catheter was then placed as the guidewire was removed. The catheter was then sutured in place. All 3 ports had good return, and flushed with normal saline easily. The patient tolerated the procedure well. A post- procedure chest x-ray is pending. Anesthesia: local Surgeon: Christelle Cortes Was there an congressional assistant present: Yes Compliance Nurse: Adelso Leija Estimated blood loss (cc): 3 Specimen: none Condition: critical Disposition: ICU <Enid Vargas - Last Filed: 12/12/17 21:28> Procedure: I was present during the entire procedure assisting the resident in critical portions of the procedure.
[2017-12-12] MEDS: Vancomycin Oral Soln 125 MG/2.5 ML UDC PO SCH ×4 (09:00→19:34)
--- NOTE | 2017-12-12 15:03 | General Surgery Consult Note ---
Date of Encounter: 12/12/17 Time of Encounter: 15:00 Assessment and Plan (1) Colitis Current Visit: Yes Status: Acute Conservative measures including: Bowel rest IV fluids IV antibiotics- Zosyn and PO vancomycin Supportive care Serial abdominal exams Stool for c-diff if diarrhea Surgery will continue to follow and assess progress No urgent surgical intervention indicated at this time (2) Abdominal pain Current Visit: No Status: Chronic Treat conservatively for colitis Serial abdominal exams Supportive care Surgery will continue to follow and assess progress Qualifiers: Abdominal location: generalized Qualified Code(s): R10.84 - Generalized abdominal pain (3) Diabetes mellitus type 1 Current Visit: No Status: Chronic Management per pulmonary/critical care team Qualifiers: Diabetes mellitus complication status: with kidney complications Diabetes mellitus complication detail: with chronic kidney disease Chronic kidney disease stage: unspecified stage Qualified Code(s): E10.22 - Type 1 diabetes mellitus with diabetic chronic kidney disease (4) DKA (diabetic ketoacidoses) Current Visit: No Status: Acute Management per pulmonary/critical care team Qualifiers: Diabetes mellitus type: type 1 Diabetes mellitus complication detail: without coma Qualified Code(s): E10.10 - Type 1 diabetes mellitus with ketoacidosis without coma History of Present Illness Consult date: 12/12/17 Reason for consult: abdominal pain Requesting physician: Christelle Cortes History of present illness: Mrs. Sierra is 32 year old female who presented to the ED unresponsive. She was found to have a glucose of 1287 and lactic acid of 4.3. She was intubated and transferred to the ICU for treatment. The patient has been extubated and we have been asked to see and evaluate her for abdominal pain. She denies any nausea/vomiting leading up to her admission, however the patient's reported multiple episodes of dark emesis prior to admission as well as complaints of epigastric tenderness. The patient denies any recent changes in bowel habits. She has had 2 soft bowel movements since admission. No melena or hematochezia evident. The patient admits to central and right sided abdominal discomfort which is constant and sharp/stabbing. Denies any aggrevating or alleviating factors. She denies ever having pain like this in the past. She does admit to bloating. Denies any fevers/chills. She states that she does have a history of c-diff. colitis but is unable to provide any details at this time. She does admit to having an EGD/Colonoscopy in the past but is unclear on the findings at this time. Gastroenterology reported last EGD as April of 2017- normal findings. We have been asked to see and evaluate the patient for recommendations. Past Med Surg Social Fam HX - Past Medical History Source: old records reviewed Medical history: diabetes (Type 1 Diabetes Mellitus) Additional medical history: detached retina left eye, spenomegally, hepatomegally Psychiatric history: no psych history - Past Surgical History Surgical History: appendectomy, , cholecystectomy, sinus surgery, other (EGD 04/2017; Colonoscopy (unsure of date)) Additional surgical history: eye surgery - Social History Smoking Status: Unknown if ever smoked Smokeless Tobacco Status: No Alcohol use: unknown Drug use: unknown Current living situation: Home - Independent Activity Level: Independent ambulation - Family History Grandmother Family Member Ethnicity: Non- Living Status: Still Living Hx Family Cardiac Disorders: No Hx Family Respiratory Disorders: No Hx Family Cancer: No Hx Family GI Disorders: No Hx Family Endocrine Disorder: Yes (type 2 diabetes) Hx Family Neuromuscular Disorders: No Hx Family Neurologic Disorders: Yes (stroke) Hx Family HEENT Disorders: No Hx Family Autoimmune Disorders: No Medications and Allergies Metoprolol [Lopressor] 25 mg PO BID #60 tablet 12/18/16 [Rx] Sodium Bicarbonate 650 mg PO DAILY 03/09/17 [History] Insulin ASPART [NovoLOG] 10 unit SQ TIDWM PRN #5 vial 03/12/17 [Rx] Insulin Glargine,Hum.rec.anlog [Lantus Solostar] 10 - 20 unit SQ HS 04/23/17 [ History] Lisinopril/Hydrochlorothiazide [Zestoretic 20-12.5 mg Tablet] 1 tab PO DAILY [History] Metoclopramide HCl 5 mg PO TID PRN #30 tablet 11/05/17 [Rx] Insulin ASPART [Novolog Flexpen] 0 units SQ TIDWM 12/10/17 [History] Insulin Glargine,Hum.rec.anlog [Lantus Solostar] 30 unit SQ HS 12/10/17 [History ] Promethazine [Phenergan] 25 mg PO BID PRN 12/10/17 [History] 3 Allergy/AdvReac Type Severity Reaction Status Date / Time acetaminophen [From [place]] Allergy Hives Verified 12/11/17 09:01 hydrocodone Allergy Hives Verified 12/11/17 09:01 Review of Systems All systems PM: reviewed and no additional remarkable complaints except as stated (in the HPI) All systems PM: The remainder of the systems were reviewed and are negative General Surgery Exam Initial Vital Signs Temp Pulse Resp BP Pulse Ox 93.2 F L 121 40 90/49 100 12/10/17 06:22 12/10/17 06:22 12/10/17 06:22 12/10/17 06:22 12/10/17 06:22 - General physical appearance well developed, no distress, chronically ill - Eyes normal ocular movement - ENT normal mucosa, atraumatic, normocephalic - Neck trachea midline - Respiratory normal respiratory effort, clear to auscultation, other (diminished bibasilar bases) - Cardiovascular Cardiovascular exam: Present: tachycardia - Abdomen Abdomen general surgery: Present: bowel sounds present, soft, distended, tender Abdominal Tenderness: Present: epigastic, RLQ, suprapubic - Integumentary Integumentary general surgery: Present: warm and dry - Neurologic Present: CN 2-12 grossly intact - Psychiatric Psychiatric general surgery: Present: A&Ox3 Exam Initial Vital Signs Temp Pulse Resp BP Pulse Ox 93.2 F L 121 40 90/49 100 12/10/17 06:22 12/10/17 06:22 12/10/17 06:22 12/10/17 06:22 12/10/17 06:22 Results - Labs 12/12/17 01:51 12/12/17 01:51 Abnormal lab results RBC 2.58 M/mcL (3.82-4.97) L 12/12/17 01:51 Hgb 8.2 g/dL (11.5-15.4) L 12/12/17 01:51 Hct 25.4 % (35.3-44.9) L 12/12/17 01:51 MPV 9.3 fL (9.4-12.4) L 12/12/17 01:51 Platelet Estimate Increased (Normal) H 12/10/17 07:00 ABG pCO2 34 mmHg (35-45) L 12/11/17 04:42 ABG pO2 181 mmHg (85-104) H 12/11/17 04:42 ABG HCO3 17 mEq/L (21-27) L 12/11/17 04:42 ABG Total CO2 18 mEq/L (20-26) L 12/11/17 04:42 ABG O2 Saturation 100 % (95-98) H 12/11/17 04:42 ABG Base Excess -8 mEq/L (-2 to 3) L 12/11/17 04:42 Chloride 114 mEq/L (98-107) H 12/12/17 01:51 Carbon Dioxide 16 mEq/L (23-29) L 12/12/17 01:51 BUN 5 mg/dL (6-20) L 12/12/17 01:51 Glucose 324 mg/dL (70-105) H 12/12/17 01:51 POC Glucose 109 mg/dL (70-99) H 12/12/17 14:18 Serum Osmolality 362 mOsm/kg (280-300) H 12/10/17 09:39 Lactic Acid 2.3 mmol/L (0.5-2.2) H 12/12/17 08:46 Calcium 6.8 mg/dL (8.6-10.3) L 12/12/17 01:51 Venous Ioniz Calcium 1.03 mmol/L (1.15-1.35) L 12/10/17 16:09 Phosphorus 2.1 mg/dL (2.7-4.5) L 12/10/17 17:00 Magnesium 1.4 mg/dL (1.6-2.6) L 12/12/17 01:51 AST 12 Units/L (13-39) L 12/12/17 01:51 Alkaline Phosphatase 156 Units/L (34-104) H 12/12/17 01:51 Serum Total Protein 4.3 g/dL (6.4-8.9) L 12/12/17 01:51 Albumin 2.3 g/dL (3.5-5.7) L 12/12/17 01:51 Globulin 2.0 g/dL (2.4-3.5) L 12/12/17 01:51 Lipase 240 Units/L (11-82) H 12/12/17 01:51 Beta-Hydroxybutyric Acd > 2.00 mmol/L (0.02-0.27) H 12/10/17 07:00 Urine Clarity Turbid (Clear) A 12/10/17 21:25 Urine Protein 100 mg/dL (Neg-Trace) H 12/10/17 21: Urine Glucose (UA) 250 mg/dL (Normal) H 12/10/17 21:25 Urine Ketones 40 mg/dL (Negative) H 12/10/17 21:25 Urine Blood Moderate (Negative) H 12/10/17 21: Urine Bilirubin Large (Negative) H 12/10/17 21:25 Ur Leukocyte Esterase Trace (Negative) H 12/10/17 21:25 Urine Microscopic RBC 5-15 per hpf (0-3) H 12/10/17 21:25 Ur Squamous Epith Cells Many per lpf (None-Few) H 12/10/17 21: Amorphous Sediment Many (Few) H 12/10/17 21: Urine Bacteria Many per hpf (None-Few) H 12/10/17 21:25 Salicylates < 2.5 mg/dL (15.0-30.0) L 12/10/17 07:00 Acetaminophen < 10 mcg/mL (10-20) L 12/10/17 07:00 Diabetes panel 12/11/17 12/12/17 Range/Units 16:06 01:51 Sodium 143 140 (136-145) mEq/L Potassium 4.5 D 3.9 (3.5-5.1) mEq/L Chloride 117 H 114 H (98-107) mEq/L Carbon Dioxide 20 L 16 L (23-29) mEq/L BUN 7 5 L (6-20) mg/dL Creatinine 0.85 0.76 (0.60-1.20) mg/dL Glucose 151 H 324 H (70-105) mg/dL Calcium 7.1 L 6.8 L (8.6-10.3) mg/dL AST 12 L (13-39) Units/L ALT 9 (7-52) Units/L Alkaline Phosphatase 156 H (34-104) Units/L Albumin 2.3 L (3.5-5.7) g/dL Calcium panel 12/11/17 12/12/17 Range/Units 16:06 01:51 Calcium 7.1 L 6.8 L (8.6-10.3) mg/dL Albumin 2.3 L (3.5-5.7) g/dL Pituitary panel 12/11/17 12/12/17 Range/Units 16:06 01:51 Sodium 143 140 (136-145) mEq/L Potassium 4.5 D 3.9 (3.5-5.1) mEq/L Chloride 117 H 114 H (98-107) mEq/L Carbon Dioxide 20 L 16 L (23-29) mEq/L BUN 7 5 L (6-20) mg/dL Creatinine 0.85 0.76 (0.60-1.20) mg/dL Glucose 151 H 324 H (70-105) mg/dL Calcium 7.1 L 6.8 L (8.6-10.3) mg/dL Adrenal panel 12/11/17 12/12/17 Range/Units 16:06 01:51 Sodium 143 140 (136-145) mEq/L Potassium 4.5 D 3.9 (3.5-5.1) mEq/L Chloride 117 H 114 H (98-107) mEq/L Carbon Dioxide 20 L 16 L (23-29) mEq/L BUN 7 5 L (6-20) mg/dL Creatinine 0.85 0.76 (0.60-1.20) mg/dL Glucose 151 H 324 H (70-105) mg/dL Calcium 7.1 L 6.8 L (8.6-10.3) mg/dL Total Bilirubin 0.4 (0.3-1.0) mg/dL AST 12 L (13-39) Units/L ALT 9 (7-52) Units/L Alkaline Phosphatase 156 H (34-104) Units/L Albumin 2.3 L (3.5-5.7) g/dL All other labs normal. - Imaging CT scan - abdomen: report reviewed CT scan - pelvis: report reviewed Additional studies: Head CT 12/10/17 07:12 IMPRESSION: No acute intracranial abnormality. Unchanged basal ganglia and thalamic calcification compatible with thyroid/parathyroid disease. D/ / Finn Neves MD / Finn Neves MD Interpreting Provider: Finn Neves MD Abdomen/Pelvis CT 12/10/17 16:50 IMPRESSION: 1. Suboptimal evaluation without IV contrast. No definite acute bowel activity is evident. 2. Blood pool density of the heart is lower than that of the myocardium, typical of anemia. 3. NG tube tip is at the gastric body. D/ / David Macias / David Macias Interpreting Provider: David Macias Abdomen/Pelvis CTA 12/11/17 21:18 IMPRESSION: 1. Unremarkable appearance of the vasculature of the abdomen and pelvis. No stenosis or dissection. 2. Abdominopelvic ascites is presumably reactive. 3. Thickened portions of the transverse colon, splenic flexure and proximal ascending colon compatible with colitis. Etiology considerations include ischemic bowel, inflammatory processes such as Crohn's disease and infectious processes. 4. Mild to moderate intra and extrahepatic bile duct dilatation status post cholecystectomy typical of reservoir effect. 5. Small volume bilateral pleural effusion with bibasilar relaxation atelectasis. D/ / David Macias / David Macias Interpreting Provider: David Macias Chest X-Ray 12/12/17 08:28 IMPRESSION: 1. Right jugular central venous line placement with the tip at the cavoatrial junction and no immediate complications. 2. Interval extubation. D/ / Phillip Novak MD / Phillip Novak MD Interpreting Provider: Phillip Novak MD X-Ray 12/12/17 14:45 IMPRESSION: No acute findings. D/ / Amelie Jackson MD / Amelie Jackson MD Interpreting Provider: Amelie Jackson MD Consult Discharge Plan - Plan Referrals: NONE,PCP [Primary Care Provider] - - Attending Attestation For this encounter, I have reviewed the PERSONAL SUPPORT WORKER or PA documentation, treatment plan, and medical decision making; and I have had face to face time with this patient.
[2017-12-12] MEDS: Insulin Human Regular 100 UNIT in 0.9 % Sodium Chloride 100 ML IVC SCH (19:33)
[2017-12-12] MEDS: Insulin DETEMIR 100 UNIT/ML X5UNITS SQ SCH (19:40)
[2017-12-12] MEDS: OXYCODONE Oral CONC 10 MG/0.5 ML ORAL.SYG SL PRN (21:15)
[2017-12-13] MEDS ORDERED: OXYCODONE Oral CONC 10 MG/0.5 ML ORAL.SYG SL ONE (00:02)
[2017-12-13] MEDS: D5% in 0.45% NACL 1,000 ML IVC SCH ×2 (02:46→10:29)
[2017-12-13] MEDS ORDERED: *HR* Promethazine 25 MG/ML VIAL IVP ONE (04:25)
[2017-12-13] MEDS: Pantoprazole 40 MG VIAL IVP SCH ×2 (04:37→17:15)
[2017-12-13] MEDS: OXYCODONE Oral CONC 10 MG/0.5 ML ORAL.SYG SL PRN ×2 (06:06→18:39)
[2017-12-13] MEDS: Insulin LISPRO 300 UNITS/3 ML VIAL SQ SCH ×5 (07:33→23:32)
[2017-12-13] MEDS: Vancomycin Oral Soln 125 MG/2.5 ML UDC PO SCH ×4 (08:18→20:34)
[2017-12-13] MEDS: Piperacillin/Tazobactam 3.375 GM in 0.9 % Sodium Chloride Mini Bag 100 ML IVPB SCH ×3 (08:21→23:24)
[2017-12-13] MEDS ORDERED: Aminoglycoside Consult 1 EACH MC ONE (08:22)
[2017-12-13 09:04] LABS: Basophils % 0.9 %; Eosinophils # 0.1 K/mcL (0.0-0.6); Hematocrit 24.4 % (35.3-44.9); Hemoglobin 7.9 g/dL (11.5-15.4); Immature Granulocytes % 0.4 % (0-4); Lymphocytes % 43.6 %; Mean Corpuscular HGB Conc 32.4 g/dL (31.6-35.5); Mean Corpuscular Hemoglobin 31.7 pg (28.0-33.3); Mean Platelet Volume 9.8 fL (9.4-12.4); Monocytes # 0.1 K/mcL (0.0-1.3); Neutrophils # 1.1 K/mcL (1.6-8.9); Platelet Count 192 K/mcL (140-400); Red Blood Count 2.49 M/mcL (3.82-4.97); Red Cell Distribution Width 12.9 % (11.5-14.5); Segmented Neutrophils % 46.1 %
[2017-12-13 09:11] LABS: Alanine Aminotransferase 170 Units/L (7-52); Albumin 2.3 g/dL (3.5-5.7); Alkaline Phosphatase 378 Units/L (34-104); Aspartate Amino Transferase 1279 Units/L (13-39); BUN/Creatinine Ratio 5 (6-26); Bilirubin,Direct 0.7 mg/dL (0.0-0.2); Bilirubin,Indirect 0.3 mg/dL (0.0-1.2); Blood Urea Nitrogen 3 mg/dL (6-20); Calcium 7.3 mg/dL (8.6-10.3); Carbon Dioxide 23 mEq/L (23-29); Chloride 115 mEq/L (98-107); Globulin 2.3 g/dL (2.4-3.5); Glucose 111 mg/dL (70-105); Magnesium 2.3 mg/dL (1.6-2.6); Osmolality,Calculated 291 (280-300); Potassium 3.4 mEq/L (3.5-5.1); Sodium 142 mEq/L (136-145); Total Protein 4.6 g/dL (6.4-8.9); eGFR For Non-African Americans > 60 (> 60)
--- NOTE | 2017-12-13 09:49 | Pulmonology Progress Note ---
<Christelle Cortes - Last Filed: 12/13/17 15:21> Date of Encounter: 12/13/17 Time of Encounter: 09:42 Assessment and Plan (1) Colitis Current Visit: Yes Status: Acute Likely secondary to hypoperfusion due to DKA with significant volume depletion. Patient was hypotensive on admission in the 80s-90s/40s-50s, which responded to fluids. Patient complaining of worsening abdominal pain. Continues to be firm on exam with increased distention CTA abdomen 12/11- diffuse thickening of the distal transverse colon, splenic flexure and proximal descending colon. Unremarkable appearance of the small bowel. Lactic acid 6.4 --> 3.5 --> 4.3 --> 1.6 AST 1279 ALT 170 Alk Phos 378 Continue bowel rest and conservative measures. Continue Protonix IV BID Continue Promethazine PRN Continue Oxycodone 5mg SL Q8 GI and Surgery following Will continue to monitor closely. RUQ ultrasound pending (2) DKA (diabetic ketoacidoses) Current Visit: No Status: Resolved Likely secondary to infection or noncompliance. Patient has a history of multiple admissions for DKA. Patient was prophylactically intubated in the ED. Liberated from the vent 12/11. Glucose on admission 1287 --> 111 Anion gap closed PH 6.87 --> 7.32 Lactic acid 6.4 --> 2.3 --> 1.6 K+ 7.5 --> 3.9 --> 3.4 Anion gap closed. Continue insulin drip. NPO. Switched IVF to D5W Qualifiers: Diabetes mellitus type: type 1 Diabetes mellitus complication detail: without coma Qualified Code(s): E10.10 - Type 1 diabetes mellitus with ketoacidosis without coma (3) Acute respiratory failure Current Visit: Yes Status: Resolved Likely secondary to high anion gap metabolic acidosis secondary to DKA. Patient was liberated from the ventilator 12/11. Qualifiers: Respiratory failure complication: unspecified whether with hypoxia or hypercapnia Qualified Code(s): J96.00 - Acute respiratory failure, unspecified whether with hypoxia or hypercapnia (4) PAOLA (acute kidney injury) Current Visit: No Status: Resolved Likely secondary to prerenal azotemia from dehydration and osmosis due to extensive hyperglycemia caused by DKA Cr on admission of 2.00 --> 0.58 Continue to monitor urine output, serum creatinine, and electrolytes. (5) DVT prophylaxis Current Visit: No Status: Acute SCDs Subjective Principal diagnosis: DKA Interval history: Overnight patient was complaining of worsening abdominal pain and distention requiring serial abdominal exams. Patient remained stable. She complained of feeling tired and admitted to worsened abdominal pain, which she states is not helped by the pain medication. She also admits to slight shortness of breath and persistent nonproductive cough. In addition, she states that she noticed her left arm from her elbow to her fingertips appears to be numb. Objective PUL Vital signs: Last Vital Signs Temp 98.2 F 12/13/17 08:00 Pulse 114 12/13/17 09:00 Resp 13 12/13/17 09:00 BP 149/93 12/13/17 09:00 Pulse Ox 97 12/13/17 09:00 General appearance: no acute distress, appears uncomfortable Eyes: nonicteric ENT: oropharynx moist Effort: normal Auscultation: bilateral: clear Cardiovascular: other (Tachycardic, regular rhythm) Gastrointestinal: other (Hyperactive bowel sounds. Firm (similar to yesterday) , with right-sided and upper quadrant tenderness. Slight distention compared to yesterday.) Extremities: cool (left upper extremity from the elbow to the fingertips), edema (Left upper extremity and bilateral lower extremities) normal mental status, pupils equal and round, other (Numbness from the elbow to the fingertips. Decreased hydrodynamics professor strength on the left. Patient is able to move fingers on the left with some difficulty) Results - Laboratory Findings CBC and BMP: 12/13/17 11:38 12/13/17 11:38 ABG ABG pH 7.32 pH Units (7.32-7.45) 12/11/17 04:42 ABG pCO2 34 mmHg (35-45) L 12/11/17 04:42 ABG pO2 181 mmHg (85-104) H 12/11/17 04:42 ABG O2 Saturation 100 % (95-98) H 12/11/17 04:42 PT/INR, D-dimer PT 10.7 Seconds (9.4-12.1) 12/10/17 10:55 Abnormal lab findings: Abnormal lab results WBC 2.3 K/mcL (4.3-11.1) L D 12/13/17 06:20 RBC 2.49 M/mcL (3.82-4.97) L 12/13/17 06:20 Hgb 7.9 g/dL (11.5-15.4) L 12/13/17 06:20 Hct 24.4 % (35.3-44.9) L 12/13/17 06:20 Neutrophils # 1.1 K/mcL (1.6-8.9) L 12/13/17 06:20 Platelet Estimate Increased (Normal) H 12/10/17 07:00 ABG pCO2 34 mmHg (35-45) L 12/11/17 04:42 ABG pO2 181 mmHg (85-104) H 12/11/17 04:42 ABG HCO3 17 mEq/L (21-27) L 12/11/17 04:42 ABG Total CO2 18 mEq/L (20-26) L 12/11/17 04:42 ABG O2 Saturation 100 % (95-98) H 12/11/17 04:42 ABG Base Excess -8 mEq/L (-2 to 3) L 12/11/17 04:42 Potassium 3.4 mEq/L (3.5-5.1) L 12/13/17 06:20 Chloride 115 mEq/L (98-107) H 12/13/17 06:20 BUN 3 mg/dL (6-20) L 12/13/17 06:20 Creatinine 0.58 mg/dL (0.60-1.20) L 12/13/17 06:20 BUN/Creatinine Ratio 5 (6-26) L 12/13/17 06:20 Glucose 111 mg/dL (70-105) H 12/13/17 06:20 POC Glucose 109 mg/dL (70-99) H 12/13/17 09:07 Serum Osmolality 362 mOsm/kg (280-300) H 12/10/17 09:39 Calcium 7.3 mg/dL (8.6-10.3) L 12/13/17 06:20 Venous Ioniz Calcium 1.03 mmol/L (1.15-1.35) L 12/10/17 16:09 Phosphorus 2.1 mg/dL (2.7-4.5) L 12/10/17 17:00 Direct Bilirubin 0.7 mg/dL (0.0-0.2) H 12/13/17 06:20 AST 1279 Units/L (13-39) H 12/13/17 06:20 ALT 170 Units/L (7-52) H 12/13/17 06:20 Alkaline Phosphatase 378 Units/L (34-104) H 12/13/17 06:20 Serum Total Protein 4.6 g/dL (6.4-8.9) L 12/13/17 06:20 Albumin 2.3 g/dL (3.5-5.7) L 12/13/17 06:20 Globulin 2.3 g/dL (2.4-3.5) L 12/13/17 06:20 Albumin/Globulin Ratio 1.0 (1.1-2.2) L 12/13/17 06:20 Lipase 240 Units/L (11-82) H 12/12/17 01:51 Beta-Hydroxybutyric Acd > 2.00 mmol/L (0.02-0.27) H 12/10/17 07:00 Urine Clarity Turbid (Clear) A 12/10/17 21:25 Urine Protein 100 mg/dL (Neg-Trace) H 12/10/17 21:25 Urine Glucose (UA) 250 mg/dL (Normal) H 12/10/17 21:25 Urine Ketones 40 mg/dL (Negative) H 12/10/17 21:25 Urine Blood Moderate (Negative) H 12/10/17 21:25 Urine Bilirubin Large (Negative) H 12/10/17 21:25 Ur Leukocyte Esterase Trace (Negative) H 12/10/17 21:25 Urine Microscopic RBC 5-15 per hpf (0-3) H 12/10/17 21:25 Ur Squamous Epith Cells Many per lpf (None-Few) H 12/10/17 21:25 Amorphous Sediment Many (Few) H 12/10/17 21:25 Urine Bacteria Many per hpf (None-Few) H 12/10/17 21:25 Salicylates < 2.5 mg/dL (15.0-30.0) L 12/10/17 07:00 Acetaminophen < 10 mcg/mL (10-20) L 12/10/17 07:00 - Microbiology Findings Microbiology Findings: Microbiology, Last 48 Hours 12/11/17 01:04 Sputum Culture - Final Sputum 12/10/17 11:20 Urine Culture - Final Urine,Catheterized No growth. 12/11/17 21:49 Blood Culture - Preliminary Peripheral Venipuncture Culture is incubating and being continuously monitored for growth. Final report to follow. 12/11/17 21:49 Blood Culture - Preliminary Peripheral Venipuncture Culture is incubating and being continuously monitored for growth. Final report to follow. - Clinical Findings Intake & Output: Intake & Output 12/12/17 12/13/17 12/13/17 23:59 07:59 15:59 Intake Total 1482 / 1482 1100 / 1100 0 / 0 Output Total 1900 / 1900 525 / 525 400 / 400 Balance -418 / -418 575 / 575 -400 / -400 Weight 58.3 kg - VTE Documentation of Mechanical Device: Intermittent pneumatic compression device Consult Discharge Plan - Plan Referrals: NONE,PCP [Primary Care Provider] - <Enid Vargas - Last Filed: 12/13/17 22:26> Date of Encounter: 12/13/17 Objective PUL Vital signs: Last Vital Signs Temp 98.3 F 12/13/17 20:50 Pulse 120 12/13/17 21:00 Resp 18 12/13/17 21:00 BP 130/78 12/13/17 21:00 Pulse Ox 95 12/13/17 21:00 Results - Laboratory Findings CBC and BMP: 12/13/17 11:38 12/13/17 11:38 ABG ABG pH 7.32 pH Units (7.32-7.45) 12/11/17 04:42 ABG pCO2 34 mmHg (35-45) L 12/11/17 04:42 ABG pO2 181 mmHg (85-104) H 12/11/17 04:42 ABG O2 Saturation 100 % (95-98) H 12/11/17 04:42 PT/INR, D-dimer PT 10.7 Seconds (9.4-12.1) 12/10/17 10:55 Abnormal lab findings: Abnormal lab results WBC 1.7 K/mcL (4.3-11.1) L 12/13/17 11:38 RBC 2.24 M/mcL (3.82-4.97) L 12/13/17 11:38 Hgb 7.0 g/dL (11.5-15.4) L 12/13/17 11:38 Hct 21.6 % (35.3-44.9) L 12/13/17 11:38 Neutrophils # 0.7 K/mcL (1.6-8.9) L 12/13/17 11:38 Anisocytosis 1+ (Not Present) A 12/13/17 11:38 ABG pCO2 34 mmHg (35-45) L 12/11/17 04:42 ABG pO2 181 mmHg (85-104) H 12/11/17 04:42 ABG HCO3 17 mEq/L (21-27) L 12/11/17 04:42 ABG Total CO2 18 mEq/L (20-26) L 12/11/17 04:42 ABG O2 Saturation 100 % (95-98) H 12/11/17 04:42 ABG Base Excess -8 mEq/L (-2 to 3) L 12/11/17 04:42 Potassium 3.4 mEq/L (3.5-5.1) L 12/13/17 11:38 Chloride 113 mEq/L (98-107) H 12/13/17 11:38 BUN 3 mg/dL (6-20) L 12/13/17 11:38 Creatinine 0.55 mg/dL (0.60-1.20) L 12/13/17 11:38 BUN/Creatinine Ratio 5 (6-26) L 12/13/17 11:38 Glucose 107 mg/dL (70-105) H 12/13/17 11:38 POC Glucose 223 mg/dL (70-99) H 12/13/17 20:04 Serum Osmolality 362 mOsm/kg (280-300) H 12/10/17 09:39 Calcium 7.3 mg/dL (8.6-10.3) L 12/13/17 11:38 Venous Ioniz Calcium 1.03 mmol/L (1.15-1.35) L 12/10/17 16:09 Phosphorus 2.1 mg/dL (2.7-4.5) L 12/10/17 17:00 Total Bilirubin 1.2 mg/dL (0.3-1.0) H 12/13/17 11:40 Direct Bilirubin 0.9 mg/dL (0.0-0.2) H 12/13/17 11:40 AST 1766 Units/L (13-39) H 12/13/17 11:40 ALT 262 Units/L (7-52) H 12/13/17 11:40 Alkaline Phosphatase 427 Units/L (34-104) H 12/13/17 11:40 Serum Total Protein 4.3 g/dL (6.4-8.9) L 12/13/17 11:40 Albumin 2.2 g/dL (3.5-5.7) L 12/13/17 11:40 Globulin 2.1 g/dL (2.4-3.5) L 12/13/17 11:40 Albumin/Globulin Ratio 1.0 (1.1-2.2) L 12/13/17 11:40 Beta-Hydroxybutyric Acd > 2.00 mmol/L (0.02-0.27) H 12/10/17 07:00 Urine Clarity Turbid (Clear) A 12/10/17 21:25 Urine Protein 100 mg/dL (Neg-Trace) H 12/10/17 21:25 Urine Glucose (UA) 250 mg/dL (Normal) H 12/10/17 21:25 Urine Ketones 40 mg/dL (Negative) H 12/10/17 21:25 Urine Blood Moderate (Negative) H 12/10/17 21:25 Urine Bilirubin Large (Negative) H 12/10/17 21:25 Ur Leukocyte Esterase Trace (Negative) H 12/10/17 21:25 Urine Microscopic RBC 5-15 per hpf (0-3) H 12/10/17 21:25 Ur Squamous Epith Cells Many per lpf (None-Few) H 12/10/17 21:25 Amorphous Sediment Many (Few) H 12/10/17 21:25 Urine Bacteria Many per hpf (None-Few) H 12/10/17 21:25 Salicylates < 2.5 mg/dL (15.0-30.0) L 12/10/17 07:00 Acetaminophen < 10 mcg/mL (10-20) L 12/10/17 07:00 - Microbiology Findings Microbiology Findings: Microbiology, Last 48 Hours 12/11/17 01:04 Sputum Culture - Final Sputum 12/10/17 11:20 Urine Culture - Final Urine,Catheterized No growth. 12/11/17 21:49 Blood Culture - Preliminary Peripheral Venipuncture Culture is incubating and being continuously monitored for growth. Final report to follow. 12/11/17 21:49 Blood Culture - Preliminary Peripheral Venipuncture Culture is incubating and being continuously monitored for growth. Final report to follow. - Clinical Findings Intake & Output: Intake & Output 12/13/17 12/13/17 12/13/17 07:59 15:59 23:59 Intake Total 1100 / 1100 1513 / 1513 614.5 / 614.5 Output Total 525 / 525 1525 / 1525 800 / 800 Balance 575 / 575 -12 / -12 -185.5 / -185.5 Weight 58.3 kg - Attending Attestation - Attending Attestation I saw and evaluated this patient and my medical decision-making was reviewed with the Resident Physician. I agree with the documented findings, disposition and treatment plan as described except to the extent set forth below. We independently had [id number] contact with the patient Patient seen and examined at bedside Labs, radiology, chart personally reviewed. Management was reviewed during multidisciplinary critical care rounds. 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 Cards: Hemodynamically stable FEN-GI: Did not have any more episodes of hematemesis chair holding off endoscopy is tonight she had more guarding and rigidity CTA showed ischemic colitis more of the colonic area small bowel area SMA and MICHAEL are patent most likely the colonic ischemia will get better lactate is trending down surgery Dr. Kraus was consulted that according to patient's 's request. 12/13 Surgery and GI following no active intervention worsening transaminitis probably due to ischemic hepatitis has some cholestasis picture hepatobilliary imaging didnt show any evidence of obstruction . To start N-Acetyl cysteine. Patient will need total parenteral nutrition with back ground of this Severe Gastroparesis Renal: Labs and output reviewed ID: Patient and blood cultures growing organism patient was started on broad- spectrum antibiotics with borderline vancomycin possible COPD but is low likelihood will de-escalate oral vancomycin tomorrow 12/13 To continue broad spectrum antibiotics . Heme/Onc: Patient has thromboprophylaxis Endo: Glucose Monitored . Has this recurrent Diabetic Keto- acidosis patient will need outpatient endocrinology follow-up . Will change to subcutaneous insulin with Q4 coverage . Integ/MSK: Skin Care per routine ICU Nursing Protocol to prevent ulcers. Lines: All lines examined without evidence of infection : Dispo: Has high chance of decline to remain in the ICU . CODE: Full Code
[2017-12-13 10:23] LABS: Lipase 82 Units/L (11-82)
[2017-12-13] MEDS: Insulin Human Regular 100 UNIT in 0.9 % Sodium Chloride 100 ML IVC SCH (11:29)
[2017-12-13] MEDS: D5% in Water 1,000 ML IVC SCH (12:36)
[2017-12-13] MEDS: *HR* Promethazine 25 MG/ML VIAL IVP PRN ×2 (12:37→20:28)
[2017-12-13 13:01] LABS: BUN/Creatinine Ratio 5 (6-26); Blood Urea Nitrogen 3 mg/dL (6-20); Calcium 7.3 mg/dL (8.6-10.3); Carbon Dioxide 26 mEq/L (23-29); Chloride 113 mEq/L (98-107); Glucose 107 mg/dL (70-105); Osmolality,Calculated 289 (280-300); Potassium 3.4 mEq/L (3.5-5.1); Sodium 141 mEq/L (136-145); eGFR For Non-African Americans > 60 (> 60)
--- NOTE | 2017-12-13 13:01 | General Surgery Progress Note ---
Date of Encounter: 12/13/17 Time of Encounter: 12:45 - Assessment and Plan (1) Colitis Current Visit: Yes Status: Acute Conservative measures including: Bowel rest IV fluids IV antibiotics- Zosyn and PO vancomycin Supportive care Serial abdominal exams Stool for c-diff if diarrhea Surgery will continue to follow and assess progress No urgent surgical intervention indicated at this time Lactic acid normalized this morning 1.6 (2) Abdominal pain Current Visit: No Status: Chronic Treat conservatively for colitis Serial abdominal exams Supportive care Surgery will continue to follow and assess progress Qualifiers: Abdominal location: generalized Qualified Code(s): R10.84 - Generalized abdominal pain (3) Diabetes mellitus type 1 Current Visit: No Status: Chronic Management per pulmonary/critical care team Qualifiers: Diabetes mellitus complication status: with kidney complications Diabetes mellitus complication detail: with chronic kidney disease Chronic kidney disease stage: unspecified stage Qualified Code(s): E10.22 - Type 1 diabetes mellitus with diabetic chronic kidney disease (4) DKA (diabetic ketoacidoses) Current Visit: No Status: Acute Management per pulmonary/critical care team Qualifiers: Diabetes mellitus type: type 1 Diabetes mellitus complication detail: without coma Qualified Code(s): E10.10 - Type 1 diabetes mellitus with ketoacidosis without coma Subjective Patient reports: no new complaints, still having pain (abdominal), flatus, no bowel movement, nausea, afebrile Objective Vital Signs - Last 8 Hours Temp Pulse Resp BP Pulse Ox 12/13/17 12:00 112 13 153/93 92 12/13/17 11:54 110 12/13/17 11:53 95 12/13/17 11:00 98.2 F 121 13 140/93 92 12/13/17 10:00 117 13 133/78 92 12/13/17 09:00 114 13 149/93 97 12/13/17 08:00 98.2 F 110 13 161/98 97 12/13/17 07:00 117 11 133/92 97 12/13/17 06:00 107 16 119/77 97 12/13/17 05:00 111 14 136/86 95 Intake and Output 12/12/17 12/13/17 12/13/17 23:59 07:59 15:59 Intake Total 1482 / 1482 1100 / 1100 1350 / 1350 Output Total 1900 / 1900 525 / 525 825 / 825 Balance -418 / -418 575 / 575 525 / 525 Intake: IV Fluids 1482 / 1482 1100 / 1100 1350 / 1350 D5% And 0.45% Nacl 1000 Ml Bag 1000 / 1000 1000 / 1000 1000 / 1000 1,000 ML @ 125 mls/hr IVC .Q8H [facility] Rx#:[id number] HumuLIN R 100 UNIT In 0.9 % 32 / 32 Sodium Chloride 100 ML @ 0.1 UNIT/KG/HR 4.58 mls/hr IVC CONT [facility] Rx#:[id number] Protonix 40 MG In 0.9 % Sodium 100 / 100 Chloride (Mini-Bag +) 100 ML @ 20 mls/hr IVC .Q5H [facility] Rx#: [id number] Zosyn 3.375 GM In 0.9 % Sodium 100 / 100 100 / 100 100 / 100 Chloride (Mini-Bag +) 100 ML @ 25 mls/hr IVPB Q8HR [facility] Rx#: [id number] Vancocin 750 MG In 0.9 % Sodium 250 / 250 250 / 250 Chloride 250 ML @ 250 mls/hr IVPB Q12H [facility] Rx#:[id number] Oral 0 / 0 Output: Catheter 1900 / 1900 525 / 525 825 / 825 Other: Weight 58.3 kg Blood Glucose* 107 103 101 Patient Weight 12/13/17 23:59 Weight 58.3 kg - General physical appearance well developed, no distress, chronically ill - Eyes normal ocular movement - ENT dry mucosa, atraumatic, normocephalic - Neck Neck exam: trachea midline - Respiratory normal respiratory effort, clear to auscultation, other (diminished bibasilar bases) - Cardiovascular Cardiovascular exam: Present: tachycardia - Abdomen Abdomen: Present: bowel sounds present, soft, distended (improved), tender Abdominal Tenderness: epigastic, RUQ, RLQ, suprapubic - Neurologic CN 2-12 grossly intact - Psychiatric oriented to time, oriented to person, oriented to place, speech is normal, memory intact - Labs 12/13/17 06:20 12/13/17 06:20 Diabetes panel 12/13/17 Range/Units 06:20 Sodium 142 (136-145) mEq/L Potassium 3.4 L (3.5-5.1) mEq/L Chloride 115 H (98-107) mEq/L Carbon Dioxide 23 (23-29) mEq/L BUN 3 L (6-20) mg/dL Creatinine 0.58 L (0.60-1.20) mg/dL Glucose 111 H (70-105) mg/dL Calcium 7.3 L (8.6-10.3) mg/dL AST 1279 H (13-39) Units/L ALT 170 H (7-52) Units/L Alkaline Phosphatase 378 H (34-104) Units/L Albumin 2.3 L (3.5-5.7) g/dL Calcium panel 12/13/17 Range/Units 06:20 Calcium 7.3 L (8.6-10.3) mg/dL Albumin 2.3 L (3.5-5.7) g/dL Pituitary panel 12/13/17 Range/Units 06:20 Sodium 142 (136-145) mEq/L Potassium 3.4 L (3.5-5.1) mEq/L Chloride 115 H (98-107) mEq/L Carbon Dioxide 23 (23-29) mEq/L BUN 3 L (6-20) mg/dL Creatinine 0.58 L (0.60-1.20) mg/dL Glucose 111 H (70-105) mg/dL Calcium 7.3 L (8.6-10.3) mg/dL Adrenal panel 12/13/17 Range/Units 06:20 Sodium 142 (136-145) mEq/L Potassium 3.4 L (3.5-5.1) mEq/L Chloride 115 H (98-107) mEq/L Carbon Dioxide 23 (23-29) mEq/L BUN 3 L (6-20) mg/dL Creatinine 0.58 L (0.60-1.20) mg/dL Glucose 111 H (70-105) mg/dL Calcium 7.3 L (8.6-10.3) mg/dL Total Bilirubin 1.0 (0.3-1.0) mg/dL AST 1279 H (13-39) Units/L ALT 170 H (7-52) Units/L Alkaline Phosphatase 378 H (34-104) Units/L Albumin 2.3 L (3.5-5.7) g/dL - VTE Documentation of Mechanical Device: Intermittent pneumatic compression device Consult Discharge Plan - Plan Referrals: NONE,PCP [Primary Care Provider] - - Attending Attestation For this encounter, I have reviewed the REHAB CONSULTANT or PA documentation, treatment plan, and medical decision making; and I have had face to face time with this patient.
[2017-12-13 13:19] LABS: Albumin 2.2 g/dL (3.5-5.7); Bilirubin,Direct 0.9 mg/dL (0.0-0.2); Bilirubin,Indirect 0.3 mg/dL (0.0-1.2); Bilirubin,Total 1.2 mg/dL (0.3-1.0); Globulin 2.1 g/dL (2.4-3.5); Total Protein 4.3 g/dL (6.4-8.9)
[2017-12-13 13:53] LABS: Basophils % 0.6 %; Eosinophils # 0.1 K/mcL (0.0-0.6); Hematocrit 21.6 % (35.3-44.9); Lymphocytes # 0.8 K/mcL (0.6-4.6); Mean Corpuscular HGB Conc 32.4 g/dL (31.6-35.5); Mean Corpuscular Hemoglobin 31.3 pg (28.0-33.3); Mean Corpuscular Volume 96.4 fL (83.0-100.0); Monocytes # 0.1 K/mcL (0.0-1.3); Monocytes % 7.8 %; Neutrophils # 0.7 K/mcL (1.6-8.9); Platelet Count 174 K/mcL (140-400); Red Blood Count 2.24 M/mcL (3.82-4.97); Red Cell Distribution Width 13.1 % (11.5-14.5); Segmented Neutrophils % 41.6 %
[2017-12-13] MEDS ORDERED: ACETYLCYSTEINE IVC ONE (13:54)
[2017-12-13] MEDS ORDERED: D5 IVC ONE (13:54)
[2017-12-13] MEDS ORDERED: WATER IVC ONE (13:54)
[2017-12-13] MEDS ORDERED: Insulin DETEMIR 100 UNIT/ML X5UNITS SQ ONE (14:00)
[2017-12-13 14:36] LABS: Anisocytosis 1+ (Not Present); Platelet Estimate Normal (Normal)
[2017-12-13] MEDS ORDERED: Acetylcysteine 2,900 MG in D5% in Water 500 ML IVC ONE (15:00)
[2017-12-13] MEDS ORDERED: Acetylcysteine 5,800 MG in D5% in Water 1,000 ML IVC ONE (19:00)
[2017-12-13] MEDS ORDERED: Insulin DETEMIR 100 UNIT/ML X5UNITS SQ SCH (21:00)
[2017-12-14] MEDS: OXYCODONE Oral CONC 10 MG/0.5 ML ORAL.SYG SL PRN ×3 (02:45→21:52)
[2017-12-14] MEDS: *HR* Promethazine 25 MG/ML VIAL IVP PRN ×2 (04:24→12:01)
[2017-12-14] MEDS: Insulin LISPRO 300 UNITS/3 ML VIAL SQ SCH ×6 (04:29→19:22)
[2017-12-14 04:50] LABS: Eosinophils # 0.2 K/mcL (0.0-0.6); Eosinophils % 4.8 %; Hematocrit 22.6 % (35.3-44.9); Hemoglobin 7.5 g/dL (11.5-15.4); Immature Granulocytes % 0.3 % (0-4); Lymphocytes # 1.1 K/mcL (0.6-4.6); Lymphocytes % 34.2 %; Mean Corpuscular HGB Conc 33.2 g/dL (31.6-35.5); Mean Corpuscular Hemoglobin 31.4 pg (28.0-33.3); Mean Corpuscular Volume 94.6 fL (83.0-100.0); Mean Platelet Volume 9.8 fL (9.4-12.4); Monocytes # 0.3 K/mcL (0.0-1.3); Monocytes % 9.7 %; Neutrophils # 1.6 K/mcL (1.6-8.9); Platelet Count 199 K/mcL (140-400); Red Blood Count 2.39 M/mcL (3.82-4.97); Red Cell Distribution Width 12.6 % (11.5-14.5)
[2017-12-14 05:12] LABS: Alanine Aminotransferase 184 Units/L (7-52); Alkaline Phosphatase 378 Units/L (34-104); Aspartate Amino Transferase 448 Units/L (13-39); BUN/Creatinine Ratio 5 (6-26); Bilirubin,Direct 0.2 mg/dL (0.0-0.2); Bilirubin,Indirect 0.4 mg/dL (0.0-1.2); Bilirubin,Total 0.6 mg/dL (0.3-1.0); Blood Urea Nitrogen 3 mg/dL (6-20); Calcium 7.7 mg/dL (8.6-10.3); Carbon Dioxide 25 mEq/L (23-29); Chloride 111 mEq/L (98-107); Globulin 2.1 g/dL (2.4-3.5); Glucose 102 mg/dL (70-105); Osmolality,Calculated 291 (280-300); Potassium 3.5 mEq/L (3.5-5.1); Sodium 142 mEq/L (136-145); Total Protein 4.1 g/dL (6.4-8.9); eGFR For Non-African Americans > 60 (> 60)
[2017-12-14 06:16] LABS: Lactate Dehydrogenase 352 Units/L (140-271)
[2017-12-14] MEDS: Pantoprazole 40 MG VIAL IVP SCH ×2 (06:24→16:49)
[2017-12-14] MEDS: Piperacillin/Tazobactam 3.375 GM in 0.9 % Sodium Chloride Mini Bag 100 ML IVPB SCH ×2 (07:38→16:42)
[2017-12-14] MEDS: Vancomycin Oral Soln 125 MG/2.5 ML UDC PO SCH ×3 (07:40→17:02)
--- NOTE | 2017-12-14 09:44 | General Surgery Progress Note ---
Date of Encounter: 12/14/17 Time of Encounter: 09:30 - Assessment and Plan (1) Colitis Current Visit: Yes Status: Acute Conservative measures including: Bowel rest IV fluids IV antibiotics- Zosyn and PO vancomycin Acute abdominal series to evaluate bowel gas pattern today Supportive care Serial abdominal exams Stool for c-diff if diarrhea Surgery will continue to follow and assess progress No urgent surgical intervention indicated at this time Lactic acid normalized this morning 1.6>0.5 (2) Abdominal pain Current Visit: No Status: Chronic Treat conservatively for colitis Serial abdominal exams Supportive care Surgery will continue to follow and assess progress Qualifiers: Abdominal location: generalized Qualified Code(s): R10.84 - Generalized abdominal pain (3) Diabetes mellitus type 1 Current Visit: No Status: Chronic Management per pulmonary/critical care team Qualifiers: Diabetes mellitus complication status: with kidney complications Diabetes mellitus complication detail: with chronic kidney disease Chronic kidney disease stage: unspecified stage Qualified Code(s): E10.22 - Type 1 diabetes mellitus with diabetic chronic kidney disease (4) DKA (diabetic ketoacidoses) Current Visit: No Status: Resolved Management per pulmonary/critical care team Qualifiers: Diabetes mellitus type: type 1 Diabetes mellitus complication detail: without coma Qualified Code(s): E10.10 - Type 1 diabetes mellitus with ketoacidosis without coma Subjective Patient reports: no new complaints, still having pain (unchanged), flatus, bowel movement, diarrhea, afebrile Objective Vital Signs - Last 8 Hours Temp Pulse Resp BP Pulse Ox 12/14/17 09:00 112 12 148/99 96 12/14/17 08:00 112 12 148/99 96 12/14/17 07:31 110 12/14/17 07:30 97.7 F 12/14/17 07:00 106 12 121/81 96 12/14/17 06:00 106 12 133/80 96 12/14/17 05:00 106 20 129/85 95 12/14/17 04:38 110 12/14/17 04:34 98.3 F 12/14/17 04:00 109 18 114/73 95 12/14/17 03:00 109 20 135/96 95 12/14/17 02:00 112 18 135/84 95 Intake and Output 12/13/17 12/14/17 12/14/17 23:59 07:59 15:59 Intake Total 614.5 / 614.5 100 / 100 Output Total 1400 / 1400 1550 / 1550 Balance -785.5 / -785.5 -1450 / -1450 Intake: IV Fluids 614.5 / 614.5 100 / 100 Acetadote 2,900 MG In Dextrose 514.5 / 514.5 5% 500 ML @ 125 mls/hr IVC ONCE ONE Rx#:[id number] Zosyn 3.375 GM In 0.9 % Sodium 100 / 100 100 / 100 Chloride (Mini-Bag +) 100 ML @ 25 mls/hr IVPB Q8HR [facility] Rx#: [id number] Oral 0 / 0 Output: Catheter 1400 / 1400 1550 / 1550 Other: Weight 58.3 kg Blood Glucose* 223 189 Patient Weight 12/14/17 23:59 Weight 58.3 kg - General physical appearance well developed, no distress, chronically ill - Eyes normal ocular movement - ENT dry mucosa, atraumatic, normocephalic - Neck Neck exam: trachea midline - Respiratory normal respiratory effort, clear to auscultation - Cardiovascular Cardiovascular exam: Present: tachycardia - Abdomen Abdomen: Present: bowel sounds present, soft, distended, tender Abdominal Tenderness: epigastic, RUQ, RLQ, suprapubic - Genitourinary other (holliday catheter to SD with clear, yellow urine noted) - Neurologic CN 2-12 grossly intact - Psychiatric oriented to time, oriented to person, oriented to place, speech is normal, memory intact - Labs 12/14/17 04:00 12/14/17 04:00 Diabetes panel 12/13/17 12/13/17 12/13/17 Range/Units 06:20 11:38 11:40 Sodium 142 141 (136-145) mEq/L Potassium 3.4 L 3.4 L (3.5-5.1) mEq/L Chloride 115 H 113 H (98-107) mEq/L Carbon Dioxide 23 26 (23-29) mEq/L BUN 3 L 3 L (6-20) mg/dL Creatinine 0.58 L 0.55 L (0.60-1.20) mg/dL Glucose 111 H 107 H (70-105) mg/dL Calcium 7.3 L 7.3 L (8.6-10.3) mg/dL AST 1279 H 1766 H (13-39) Units/L ALT 170 H 262 H (7-52) Units/L Alkaline Phosphatase 378 H 427 H (34-104) Units/L Albumin 2.3 L 2.2 L (3.5-5.7) g/dL 12/14/17 Range/Units 04:00 Sodium 142 (136-145) mEq/L Potassium 3.5 (3.5-5.1) mEq/L Chloride 111 H (98-107) mEq/L Carbon Dioxide 25 (23-29) mEq/L BUN 3 L (6-20) mg/dL Creatinine 0.57 L (0.60-1.20) mg/dL Glucose 102 (70-105) mg/dL Calcium 7.7 L (8.6-10.3) mg/dL AST 448 H (13-39) Units/L ALT 184 H (7-52) Units/L Alkaline Phosphatase 378 H (34-104) Units/L Albumin 2.0 L (3.5-5.7) g/dL Calcium panel 12/13/17 12/13/17 12/13/17 Range/Units 06:20 11:38 11:40 Calcium 7.3 L 7.3 L (8.6-10.3) mg/dL Albumin 2.3 L 2.2 L (3.5-5.7) g/dL 12/14/17 Range/Units 04:00 Calcium 7.7 L (8.6-10.3) mg/dL Albumin 2.0 L (3.5-5.7) g/dL Pituitary panel 12/13/17 12/13/17 12/14/17 Range/Units 06:20 11:38 04:00 Sodium 142 141 142 (136-145) mEq/L Potassium 3.4 L 3.4 L 3.5 (3.5-5.1) mEq/L Chloride 115 H 113 H 111 H (98-107) mEq/L Carbon Dioxide 23 26 25 (23-29) mEq/L BUN 3 L 3 L 3 L (6-20) mg/dL Creatinine 0.58 L 0.55 L 0.57 L (0.60-1.20) mg/dL Glucose 111 H 107 H 102 (70-105) mg/dL Calcium 7.3 L 7.3 L 7.7 L (8.6-10.3) mg/dL Adrenal panel 12/13/17 12/13/17 12/13/17 Range/Units 06:20 11:38 11:40 Sodium 142 141 (136-145) mEq/L Potassium 3.4 L 3.4 L (3.5-5.1) mEq/L Chloride 115 H 113 H (98-107) mEq/L Carbon Dioxide 23 26 (23-29) mEq/L BUN 3 L 3 L (6-20) mg/dL Creatinine 0.58 L 0.55 L (0.60-1.20) mg/dL Glucose 111 H 107 H (70-105) mg/dL Calcium 7.3 L 7.3 L (8.6-10.3) mg/dL Total Bilirubin 1.0 1.2 H (0.3-1.0) mg/dL AST 1279 H 1766 H (13-39) Units/L ALT 170 H 262 H (7-52) Units/L Alkaline Phosphatase 378 H 427 H (34-104) Units/L Albumin 2.3 L 2.2 L (3.5-5.7) g/dL 12/14/17 Range/Units 04:00 Sodium 142 (136-145) mEq/L Potassium 3.5 (3.5-5.1) mEq/L Chloride 111 H (98-107) mEq/L Carbon Dioxide 25 (23-29) mEq/L BUN 3 L (6-20) mg/dL Creatinine 0.57 L (0.60-1.20) mg/dL Glucose 102 (70-105) mg/dL Calcium 7.7 L (8.6-10.3) mg/dL Total Bilirubin 0.6 (0.3-1.0) mg/dL AST 448 H (13-39) Units/L ALT 184 H (7-52) Units/L Alkaline Phosphatase 378 H (34-104) Units/L Albumin 2.0 L (3.5-5.7) g/dL - VTE Documentation of Mechanical Device: Intermittent pneumatic compression device Consult Discharge Plan - Plan Referrals: NONE,PCP [Primary Care Provider] - - Attending Attestation For this encounter, I have reviewed the GLOBAL LOGISTICS MANAGER or PA documentation, treatment plan, and medical decision making; and I have had face to face time with this patient.
[2017-12-14] MEDS: D5% in Water 1,000 ML IVC SCH (10:15)
--- NOTE | 2017-12-14 10:59 | Gastroenterology Progress Note ---
Date of Encounter: 12/14/17 Time of Encounter: 09:30 - Assessment and plan (1) Coffee ground emesis Current Visit: Yes Status: Acute Assessment and plan: DkA has resolved. She had EGD 05/11 which was normal. Coffee ground emesis may be related to DKA. H&H dropped to 7.5. Will monitor H&H. Abdomen is firm and tender, may need repeat EGD will discuss with Dr Mcknight. (2) Nausea & vomiting Current Visit: No Status: Acute Qualifiers: Vomiting type: cyclical vomiting Vomiting Intractability: non-intractable Qualified Code(s): G43.A0 - Cyclical vomiting, not intractable (3) Abdominal pain Current Visit: No Status: Acute Qualifiers: Abdominal location: right lower quadrant Qualified Code(s): R10.31 - Right lower quadrant pain (4) Intractable nausea and vomiting Current Visit: No Status: Acute Qualifiers: Vomiting type: unspecified Qualified Code(s): R11.2 - Nausea with vomiting , unspecified - Time Spent With Patient Total time spent is greater than 50% in coordination of care (as documented) at patient's floor/unit and/or counseling patient: - Subjective Interval history: Pt remains in ICU. She has continued abdominal distention, pain and nausea. CT showed colitis, surgery recommended conservative measures. She denies BMs but states she is passing flatus. AST was elevated yesterday but is trending down. - Constitutional Vitals: Temp Pulse Resp BP Pulse Ox 97.7 F 113 12 161/97 96 12/14/17 07:30 12/14/17 10:00 12/14/17 10:00 12/14/17 10:00 12/14/17 10:00 Exam: CONSTITUTIONAL:~alert, no acute distress.~HEAD:~normocephalic.~EYES:~no jaundice.~NECK:~no obvious swelling.~HEART:~tachycardic, regular rate and rhythm , no murmurs.~LUNGS:~bilateral fair air entry.~ABDOMEN:~distended, firm, tender , no masses palpable, no organomegaly.~RECTAL EXAM:~Deferred.~EXTREMITIES:~no clubbing, cyanosis or edema.~SKIN:~pallor noted, no stigmata of chronic liver disease.~NEUROLOGIC:~no obvious focal defect.~~~~ Results - Labs CBC & Chem 7: 12/14/17 04:00 12/14/17 04:00 Labs: Last Result Calcium 7.7 mg/dL (8.6-10.3) L 12/14/17 04:00 Troponin I < 0.03 ng/mL (< 0.04) 12/10/17 07:00 Salicylates < 2.5 mg/dL (15.0-30.0) L 12/10/17 07:00 Urine Opiates Screen Negative ng/mL ([id number]) 12/10/17 07:24 Entire Visit Hgb 7.5 g/dL (11.5-15.4) L 12/14/17 04:00 Hct 22.6 % (35.3-44.9) L 12/14/17 04:00 PT 10.7 Seconds (9.4-12.1) 12/10/17 10:55 Total Bilirubin 0.6 mg/dL (0.3-1.0) 12/14/17 04:00 AST 448 Units/L (13-39) H 12/14/17 04:00 ALT 184 Units/L (7-52) H 12/14/17 04:00 Lipase 82 Units/L (11-82) 12/13/17 06:20 Acetaminophen < 10 mcg/mL (10-20) L 12/10/17 07:00 - ABG ABG results: ABG ABG pH 7.32 pH Units (7.32-7.45) 12/11/17 04:42 ABG pCO2 34 mmHg (35-45) L 12/11/17 04:42 ABG pO2 181 mmHg (85-104) H 12/11/17 04:42 ABG O2 Saturation 100 % (95-98) H 12/11/17 04:42 PT/INR, D-dimer PT 10.7 Seconds (9.4-12.1) 12/10/17 10:55 - Impressions Impressions Liver Ultrasound 12/13/17 00:00 IMPRESSION: Status post cholecystectomy. Mild prominence of the biliary tree is noted, likely representing reservoir effect. Right pleural effusion. D/ / Roberth Avilez / Roberth Avilez Interpreting Provider: Roberth Avilez Chest/Abdomen X-ray 12/14/17 09:41 IMPRESSION: Nonobstructive bowel gas pattern without free air. Left basilar atelectasis. D/ / Kenneth Owens MD / Kenneth Owens MD Interpreting Provider: Kenneth Owens MD - VTE Documentation of Mechanical Device: Intermittent pneumatic compression device Consult Discharge Plan - Plan Referrals: NONE,PCP [Primary Care Provider] -
--- NOTE | 2017-12-14 11:18 | Pulmonology Progress Note ---
<José Miguel Man - Last Filed: 12/14/17 19:51> Date of Encounter: 12/14/17 Time of Encounter: 09:30 Assessment and Plan (1) Colitis Current Visit: Yes Status: Acute - patient has had a Hx of colitis. her last CT in July also showed colonic thickening suggestive of Colitis. most recent CTA showed thickened portions of the transverse compatible with colitis - supportive care at the moment - IV fluids, she's on day 4 of Zosyn - increase PO intake as she tolerates, Reglan can help with increasing her appetite - stable to be transferred to the floor (2) DKA (diabetic ketoacidoses) Current Visit: Yes Status: Acute - Currently resolved - current glucose: 102 and closed anion gap. . Patient was admitted for DKA with glucose 1287 and anion gap 33 and was on the DKA protocol. patient has a Hx of multiple admission to [facility] for DKA. - Lactic acid trending down 3.9-> 3.0-> 1.6 -> 0.5 - continue on long acting insulin at bed time and short acting insulin before meals - accu checks q4h Qualifiers: Diabetes mellitus type: type 1 Diabetes mellitus complication detail: with coma Qualified Code(s): E10.11 - Type 1 diabetes mellitus with ketoacidosis with coma (3) Acute respiratory failure Current Visit: Yes Status: Resolved - currently resolved. Patient breathing o room air satting at spO2: 98%. she was admitted to the ICU because of acute resp failure secondary to her Increased anion gap metabolic acidosis due to her DKA. She on day 3 status-post extubation. - continue to monitor the respiratory status Qualifiers: Respiratory failure complication: unspecified whether with hypoxia or hypercapnia Qualified Code(s): J96.00 - Acute respiratory failure, unspecified whether with hypoxia or hypercapnia (4) PAOLA (acute kidney injury) Current Visit: Yes Status: Acute -resolved Currently her Cr has gone down from 1.17 to 0.57 - initially her PAOLA was likely due to prerenal azotemia from dehydration and osmosis due to extensive hyperglycemia (1287 on admission) causes by DKA. On admission: BUN: 23 Cr : 1.69 - UOP monitor, Continue to trend SCr and monitor Electrolytes. (5) Metabolic encephalopathy Current Visit: Yes Status: Acute - resolved - secondary to her diabetic coma. Patient was found to have DKA on admission with glucose of 1287, hydroxybutyrate >2, rapid breathing, tachycardia Her Head CT was unremarkable for any intracranial masses or hemorrhage. Tox screen was negative, ethyl alcohol < 10, s/p DKA protocol (6) DVT prophylaxis Current Visit: Yes Status: Acute Mechanical DVT prophylaxis. Cannot do chemical prophylaxis because of her multiple episodes of hemetemesis Subjective Principal diagnosis: DKA Interval history: no acute events Her ALT, AST has been trending down.As per the surgery team, she will be on supportive measures for her colitis, and complete her 5 day course of Abx. Patient is currently eating regular diet. However if she is not able to tolerate the PO diet, plan is to do TPN . Her Physical exam looks pretty benign except for perumbilical tenderness and distended abdomen secondary to her colitis. With her resolving DKA and PAOLA, she is stable to be transferred to the floor. Objective PUL Vital signs: Last Vital Signs Temp 97.7 F 12/14/17 07:30 Pulse 113 12/14/17 10:00 Resp 12 12/14/17 10:00 BP 161/97 12/14/17 10:00 Pulse Ox 96 12/14/17 10:00 General appearance: no acute distress (A&O*3) Auscultation: bilateral: clear (no rales, wheezing or ronchi) Cardiovascular: regular rate and rhythm (no gallos, murmurs or rubs) Gastrointestinal: normoactive bowel sounds (distended abdomen but no guarding or rebound tenderness) Extremities: no cyanosis, no edema, no clubbing Results - Laboratory Findings CBC and BMP: 12/14/17 04:00 12/14/17 04:00 ABG ABG pH 7.32 pH Units (7.32-7.45) 12/11/17 04:42 ABG pCO2 34 mmHg (35-45) L 12/11/17 04:42 ABG pO2 181 mmHg (85-104) H 12/11/17 04:42 ABG O2 Saturation 100 % (95-98) H 12/11/17 04:42 PT/INR, D-dimer PT 10.7 Seconds (9.4-12.1) 12/10/17 10:55 Abnormal lab findings: Abnormal lab results WBC 3.1 K/mcL (4.3-11.1) L D 12/14/17 04:00 RBC 2.39 M/mcL (3.82-4.97) L 12/14/17 04:00 Hgb 7.5 g/dL (11.5-15.4) L 12/14/17 04:00 Hct 22.6 % (35.3-44.9) L 12/14/17 04:00 Anisocytosis 1+ (Not Present) A 12/13/17 11:38 ABG pCO2 34 mmHg (35-45) L 12/11/17 04:42 ABG pO2 181 mmHg (85-104) H 12/11/17 04:42 ABG HCO3 17 mEq/L (21-27) L 12/11/17 04:42 ABG Total CO2 18 mEq/L (20-26) L 12/11/17 04:42 ABG O2 Saturation 100 % (95-98) H 12/11/17 04:42 ABG Base Excess -8 mEq/L (-2 to 3) L 12/11/17 04:42 Chloride 111 mEq/L (98-107) H 12/14/17 04:00 BUN 3 mg/dL (6-20) L 12/14/17 04:00 Creatinine 0.57 mg/dL (0.60-1.20) L 12/14/17 04:00 BUN/Creatinine Ratio 5 (6-26) L 12/14/17 04:00 POC Glucose 189 mg/dL (70-99) H 12/14/17 07:14 Serum Osmolality 362 mOsm/kg (280-300) H 12/10/17 09:39 Calcium 7.7 mg/dL (8.6-10.3) L 12/14/17 04:00 Venous Ioniz Calcium 1.03 mmol/L (1.15-1.35) L 12/10/17 16:09 Phosphorus 2.1 mg/dL (2.7-4.5) L 12/10/17 17:00 AST 448 Units/L (13-39) H 12/14/17 04:00 ALT 184 Units/L (7-52) H 12/14/17 04:00 Alkaline Phosphatase 378 Units/L (34-104) H 12/14/17 04:00 Lactate Dehydrogenase 352 Units/L (140-271) H 12/14/17 04:00 Serum Total Protein 4.1 g/dL (6.4-8.9) L 12/14/17 04:00 Albumin 2.0 g/dL (3.5-5.7) L 12/14/17 04:00 Globulin 2.1 g/dL (2.4-3.5) L 12/14/17 04:00 Albumin/Globulin Ratio 1.0 (1.1-2.2) L 12/14/17 04:00 Beta-Hydroxybutyric Acd > 2.00 mmol/L (0.02-0.27) H 12/10/17 07:00 Urine Clarity Turbid (Clear) A 12/10/17 21:25 Urine Protein 100 mg/dL (Neg-Trace) H 12/10/17 21:25 Urine Glucose (UA) 250 mg/dL (Normal) H 12/10/17 21:25 Urine Ketones 40 mg/dL (Negative) H 12/10/17 21:25 Urine Blood Moderate (Negative) H 12/10/17 21:25 Urine Bilirubin Large (Negative) H 12/10/17 21:25 Ur Leukocyte Esterase Trace (Negative) H 12/10/17 21:25 Urine Microscopic RBC 5-15 per hpf (0-3) H 12/10/17 21:25 Ur Squamous Epith Cells Many per lpf (None-Few) H 12/10/17 21:25 Amorphous Sediment Many (Few) H 12/10/17 21:25 Urine Bacteria Many per hpf (None-Few) H 12/10/17 21:25 Salicylates < 2.5 mg/dL (15.0-30.0) L 12/10/17 07:00 Acetaminophen < 10 mcg/mL (10-20) L 12/10/17 07:00 - Microbiology Findings Microbiology Findings: Microbiology, Last 48 Hours 12/11/17 01:04 Sputum Culture - Final Sputum 12/10/17 11:20 Urine Culture - Final Urine,Catheterized No growth. - Clinical Findings Intake & Output: Intake & Output 12/13/17 12/14/17 12/14/17 23:59 07:59 15:59 Intake Total 614.5 / 614.5 100 / 100 Output Total 1400 / 1400 1550 / 1550 Balance -785.5 / -785.5 -1450 / -1450 Weight 58.3 kg - VTE Documentation of Mechanical Device: Intermittent pneumatic compression device Consult Discharge Plan - Plan Referrals: Josiah Lockhart MD [Partnered Physician] - NONE,PCP [Primary Care Provider] - <Enid Vargas S - Last Filed: 12/14/17 21:26> Date of Encounter: 12/14/17 Objective PUL Vital signs: Last Vital Signs Temp 98.5 F 12/14/17 21:02 Pulse 113 12/14/17 21:02 Resp 16 12/14/17 21:02 BP 141/85 12/14/17 21:02 Pulse Ox 97 12/14/17 21:02 Results - Laboratory Findings CBC and BMP: 12/14/17 04:00 12/14/17 04:00 ABG ABG pH 7.32 pH Units (7.32-7.45) 12/11/17 04:42 ABG pCO2 34 mmHg (35-45) L 12/11/17 04:42 ABG pO2 181 mmHg (85-104) H 12/11/17 04:42 ABG O2 Saturation 100 % (95-98) H 12/11/17 04:42 PT/INR, D-dimer PT 10.7 Seconds (9.4-12.1) 12/10/17 10:55 Abnormal lab findings: Abnormal lab results WBC 3.1 K/mcL (4.3-11.1) L D 12/14/17 04:00 RBC 2.39 M/mcL (3.82-4.97) L 12/14/17 04:00 Hgb 7.5 g/dL (11.5-15.4) L 12/14/17 04:00 Hct 22.6 % (35.3-44.9) L 12/14/17 04:00 Anisocytosis 1+ (Not Present) A 12/13/17 11:38 ABG pCO2 34 mmHg (35-45) L 12/11/17 04:42 ABG pO2 181 mmHg (85-104) H 12/11/17 04:42 ABG HCO3 17 mEq/L (21-27) L 12/11/17 04:42 ABG Total CO2 18 mEq/L (20-26) L 12/11/17 04:42 ABG O2 Saturation 100 % (95-98) H 12/11/17 04:42 ABG Base Excess -8 mEq/L (-2 to 3) L 12/11/17 04:42 Chloride 111 mEq/L (98-107) H 12/14/17 04:00 BUN 3 mg/dL (6-20) L 12/14/17 04:00 Creatinine 0.57 mg/dL (0.60-1.20) L 12/14/17 04:00 BUN/Creatinine Ratio 5 (6-26) L 12/14/17 04:00 POC Glucose 122 mg/dL (70-99) H 12/14/17 11:52 Serum Osmolality 362 mOsm/kg (280-300) H 12/10/17 09:39 Calcium 7.7 mg/dL (8.6-10.3) L 12/14/17 04:00 Venous Ioniz Calcium 1.03 mmol/L (1.15-1.35) L 12/10/17 16:09 Phosphorus 2.1 mg/dL (2.7-4.5) L 12/10/17 17:00 AST 448 Units/L (13-39) H 12/14/17 04:00 ALT 184 Units/L (7-52) H 12/14/17 04:00 Alkaline Phosphatase 378 Units/L (34-104) H 12/14/17 04:00 Lactate Dehydrogenase 352 Units/L (140-271) H 12/14/17 04:00 Serum Total Protein 4.1 g/dL (6.4-8.9) L 12/14/17 04:00 Albumin 2.0 g/dL (3.5-5.7) L 12/14/17 04:00 Globulin 2.1 g/dL (2.4-3.5) L 12/14/17 04:00 Albumin/Globulin Ratio 1.0 (1.1-2.2) L 12/14/17 04:00 Beta-Hydroxybutyric Acd > 2.00 mmol/L (0.02-0.27) H 12/10/17 07:00 Urine Clarity Turbid (Clear) A 12/10/17 21:25 Urine Protein 100 mg/dL (Neg-Trace) H 12/10/17 21:25 Urine Glucose (UA) 250 mg/dL (Normal) H 12/10/17 21:25 Urine Ketones 40 mg/dL (Negative) H 12/10/17 21:25 Urine Blood Moderate (Negative) H 12/10/17 21:25 Urine Bilirubin Large (Negative) H 12/10/17 21:25 Ur Leukocyte Esterase Trace (Negative) H 12/10/17 21:25 Urine Microscopic RBC 5-15 per hpf (0-3) H 12/10/17 21:25 Ur Squamous Epith Cells Many per lpf (None-Few) H 12/10/17 21:25 Amorphous Sediment Many (Few) H 12/10/17 21:25 Urine Bacteria Many per hpf (None-Few) H 12/10/17 21:25 Salicylates < 2.5 mg/dL (15.0-30.0) L 12/10/17 07:00 Acetaminophen < 10 mcg/mL (10-20) L 12/10/17 07:00 - Microbiology Findings Microbiology Findings: Microbiology, Last 48 Hours 12/11/17 01:04 Sputum Culture - Final Sputum - Clinical Findings Intake & Output: Intake & Output 12/14/17 12/14/17 12/14/17 07:59 15:59 23:59 Intake Total 100 / 100 120 / 120 Output Total 1550 / 1550 700 / 700 Balance -1450 / -1450 -580 / -580 Weight 58.3 kg - Attending Attestation - Attending Attestation I saw and evaluated this patient and my medical decision-making was reviewed with the Resident Physician. I agree with the documented findings, disposition and treatment plan as described except to the extent set forth below. We independently had [id number] contact with the patient Patient seen and examined at bedside Labs, radiology, chart personally reviewed. Management was reviewed during multidisciplinary critical care rounds. CIRCUS TRAINER: Patient is conscious oriented x 3 Pulm: Patient has acceptable V/Q mismatch will liberate oxygen as tolerated CT chest showed some trace pleural effusion probably secondary to volume repletion 12/13 Patient has today acceptable oxygenation and ventilation. 12/14 Patient has acceptable oxygenation and ventilation Cards: Hemodynamically stable FEN-GI: Did not have any more episodes of hematemesis chair holding off endoscopy is tonight she had more guarding and rigidity CTA showed ischemic colitis more of the colonic area small bowel area SMA and MICHAEL are patent most likely the colonic ischemia will get better lactate is trending down surgery Dr. Kraus was consulted that according to patient's 's request. 12/13 Surgery and GI following no active intervention worsening transaminitis probably due to ischemic hepatitis has some cholestasis picture hepatobilliary imaging didnt show any evidence of obstruction . To start N-Acetyl cysteine. Patient will need total parenteral nutrition with back ground of this Severe Gastroparesis 12/14 Surgery started on clears most likely she will need total parenteral nutrition Renal: Labs and output reviewed ID: Patient and blood cultures growing organism patient was started on broad- spectrum antibiotics with borderline vancomycin possible COPD but is low likelihood will de-escalate oral vancomycin tomorrow 12/13 To continue broad spectrum antibiotics . 12/14 To stop oral vancomycin will descalate antibiotics Heme/Onc: Patient has thromboprophylaxis Endo: Glucose Monitored . Has this recurrent Diabetic Keto- acidosis patient will need outpatient endocrinology follow-up . Will change to subcutaneous insulin with Q4 coverage . Integ/MSK: Skin Care per routine ICU Nursing Protocol to prevent ulcers. Lines: All lines examined without evidence of infection : Dispo: Patient remains stable will transfer to telemetry ..
[2017-12-14] MEDS: 0.9 % Sodium Chloride w KCl 20 MEQ/1,000 ML MLS IVC SCH (15:12)
[2017-12-14] MEDS: D5% in 0.45% NACL w KCl 20 MEQ/1,000 ML MLS IVC SCH (15:12)
[2017-12-14] MEDS: Insulin Human Regular 100 UNIT in 0.9 % Sodium Chloride 100 ML IVC SCH (15:13)
[2017-12-14] MEDS ORDERED: *HR* Dextrose 50 % in Water (Syg) 50 ML SYRINGE IVP PRN (18:41)
[2017-12-14] MEDS ORDERED: D5% in Water 1,000 ML IVC PRN (18:41)
[2017-12-14] MEDS ORDERED: Dextrose Gel 15 GM/37.5 ML TUBE PO PRN ×2 (18:41)
[2017-12-14] MEDS: Insulin DETEMIR 100 UNIT/ML X5UNITS SQ SCH (21:52)
[2017-12-15] MEDS: Insulin LISPRO 300 UNITS/3 ML VIAL SQ SCH ×7 (05:33→23:28)
[2017-12-15] MEDS: OXYCODONE Oral CONC 10 MG/0.5 ML ORAL.SYG SL PRN ×3 (05:53→23:23)
[2017-12-15] MEDS: Piperacillin/Tazobactam 3.375 GM in 0.9 % Sodium Chloride Mini Bag 100 ML IVPB SCH ×4 (07:44→23:29)
[2017-12-15] MEDS: *HR* Labetalol 20 MG/4 ML SYRINGE IVP PRN (08:29)
--- NOTE | 2017-12-15 10:52 | General Surgery Progress Note ---
Date of Encounter: 12/15/17 Time of Encounter: 10:45 - Assessment and Plan (1) Colitis Current Visit: Yes Status: Acute Conservative measures including: Advance to full liquids and protein supplements (may have mashed potatoes with gravy) IV fluids per primary team IV antibiotics- Zosyn Supportive care Surgery will sign off at this time as there is no acute surgical intervention indicated- f/u as outpatient for interval colonoscopy in 6-8 weeks Lactic acid normalized this morning 1.6>0.5 Start stool softners today BID, Miralax prn for constipation (2) Abdominal pain Current Visit: No Status: Chronic Treat conservatively for colitis Plan for interval colonoscopy in 6-8 weeks Supportive care Qualifiers: Abdominal location: generalized Qualified Code(s): R10.84 - Generalized abdominal pain (3) Diabetes mellitus type 1 Current Visit: No Status: Chronic Management per medicine service Qualifiers: Diabetes mellitus complication status: with kidney complications Diabetes mellitus complication detail: with chronic kidney disease Chronic kidney disease stage: unspecified stage Qualified Code(s): E10.22 - Type 1 diabetes mellitus with diabetic chronic kidney disease (4) DKA (diabetic ketoacidoses) Current Visit: No Status: Resolved Management per medicine service Qualifiers: Diabetes mellitus type: type 1 Diabetes mellitus complication detail: without coma Qualified Code(s): E10.10 - Type 1 diabetes mellitus with ketoacidosis without coma Subjective Patient reports: no new complaints, feels better, still having pain, pain is less, tolerating liquids well, flatus, no bowel movement, nausea, afebrile Objective Vital Signs - Last 8 Hours Temp Pulse Resp BP Pulse Ox 12/15/17 06:59 97.8 F 105 16 166/80 94 12/15/17 04:56 97.9 F 99 16 146/85 97 Intake and Output 12/14/17 12/15/17 12/15/17 23:59 07:59 15:59 Intake Total 100 / 100 0 / 0 Balance 100 / 100 0 / 0 Intake: IV Fluids 100 / 100 Zosyn 3.375 GM In 0.9 % Sodium 100 / 100 Chloride (Mini-Bag +) 100 ML @ 25 mls/hr IVPB Q8HR [facility] Rx#: [id number] Oral 0 / 0 Other: Meal Breakfast Percent of Meal Consumed 0% Blood Glucose* 197 104 - General physical appearance no distress, chronically ill - ENT normal mucosa, atraumatic, normocephalic - Neck Neck exam: trachea midline - Respiratory normal respiratory effort, clear to auscultation - Cardiovascular Cardiovascular exam: Present: tachycardia - Abdomen Abdomen: Present: bowel sounds present, soft, tender (improved) Abdominal Tenderness: epigastic, RUQ, RLQ, suprapubic - Neurologic CN 2-12 grossly intact - Psychiatric oriented to time, oriented to person, oriented to place, speech is normal, memory intact - Labs 12/14/17 04:00 12/14/17 04:00 - VTE Documentation of Mechanical Device: Venous foot pump, device Consult Discharge Plan - Plan Referrals: Josiah Lockhart MD [Partnered Physician] - NONE,PCP [Primary Care Provider] - - Attending Attestation For this encounter, I have reviewed the CLOTH FOLDER HAND or PA documentation, treatment plan, and medical decision making; and I have had face to face time with this patient.
[2017-12-15 12:10] LABS: Basophils % 0.5 %; Eosinophils # 0.2 K/mcL (0.0-0.6); Eosinophils % 4.3 %; Hematocrit 20.4 % (35.3-44.9); Hemoglobin 6.8 g/dL (11.5-15.4); Immature Granulocytes % 0.9 % (0-4); Lymphocytes # 1.5 K/mcL (0.6-4.6); Lymphocytes % 34.2 %; Mean Corpuscular HGB Conc 33.3 g/dL (31.6-35.5); Mean Corpuscular Hemoglobin 31.9 pg (28.0-33.3); Mean Corpuscular Volume 95.8 fL (83.0-100.0); Mean Platelet Volume 9.9 fL (9.4-12.4); Monocytes # 0.5 K/mcL (0.0-1.3); Monocytes % 12.1 %; Neutrophils # 2.1 K/mcL (1.6-8.9); Platelet Count 249 K/mcL (140-400); Red Blood Count 2.13 M/mcL (3.82-4.97); Red Cell Distribution Width 12.5 % (11.5-14.5)
[2017-12-15] MEDS ORDERED: *HR* Promethazine 25 MG/ML VIAL IVP ONE (12:16)
--- NOTE | 2017-12-15 12:18 | Internal Med Progress Note ---
Hospitalist Progress Note - Encounter Date of Encounter: 12/15/17 Time of Encounter: 07:50 - Subjective Interval History: Patient seen and examined this morning. Complained of some nausea. Denied any bowel problems. To have some right sided and upper abdominal pain. Is tolerating a liquid diet. - Exam Vitals: Temp Pulse Resp BP Pulse Ox 98.5 F 104 17 150/87 97 12/15/17 11:17 12/15/17 11:17 12/15/17 11:17 12/15/17 11:17 12/15/17 11:17 Exam: Constitutional: In no distress, Sitting comfortably HEENT: Legally blind, No JVD, No lymphadenopathy CVS: S1, S2 normal, No MRG, RRR RS: Air entry equal, CTA ABdomen: Soft, mild tenderness on RlQ and epigastrium Extremities: No rash or edema noted Skin : Clear, No rash or ulcers noted Neuro: Cranial nerve gross normal, Motor and sensory exam grossly unremarkable, AOx3 Psych: Appropirate mood and affect, Fair insight. - Assessment and Plan (1) DKA (diabetic ketoacidoses) Current Visit: Yes Status: Acute Assessment and Plan: - resolved. anion gap closed. Has previous multiple admission to [facility] for DKA. - continue levemir and premeal insulin with sliding scale with accuchecks. (2) Colitis Current Visit: Yes Status: Acute Assessment and Plan: -last CT in July also showed colonic thickening suggestive of Colitis. CTA showed thickened portions of the transverse colon - c/w IVF and Zosyn - tolerating PO intake. Will progress per GI. Reglan for nausea. - f/u outpatient for colonoscopy in 6-8 weeks per GI - Miralax BID - Has Rt IJ TLC. If maintaining good nutrition and no plan for TPN will remove tommorrow. 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 Will monitor for now. DVT Prophylaxis: Mechanical commpression given multiple episode of hemetemesis. - Time Spent with Patient Total time spent is greater than 50% in coordination of care (as documented) at patient's floor/unit and/or counseling patient: 25 - 35 minutes Internal Medicine: Result - Labs CBC & Chem 7: 12/16/17 08:02 12/16/17 08:02 Labs: Short CBC 12/15/17 Range/Units 10:58 WBC 4.4 (4.3-11.1) K/mcL Hgb 6.8 L (11.5-15.4) g/dL Hct 20.4 L (35.3-44.9) % Plt Count 249 (140-400) K/mcL Neutrophils # 2.1 (1.6-8.9) K/mcL - ABG Interpretation ABG results: ABG ABG pH 7.32 pH Units (7.32-7.45) 12/11/17 04:42 ABG pCO2 34 mmHg (35-45) L 12/11/17 04:42 ABG pO2 181 mmHg (85-104) H 12/11/17 04:42 ABG O2 Saturation 100 % (95-98) H 12/11/17 04:42 PT/INR, D-dimer PT 10.7 Seconds (9.4-12.1) 12/10/17 10:55 - VTE Documentation of Mechanical Device: Venous foot pump, device Consult Discharge Plan - Plan Referrals: Josiah Lockhart MD [Partnered Physician] - NONE,PCP [Primary Care Provider] - (1) DKA (diabetic ketoacidoses) Qualifiers: Diabetes mellitus type: type 1 Diabetes mellitus complication detail: with coma Qualified Code(s): E10.11 - Type 1 diabetes mellitus with ketoacidosis with coma
[2017-12-15 12:31] LABS: Alanine Aminotransferase 127 Units/L (7-52); Albumin 2.2 g/dL (3.5-5.7); Alkaline Phosphatase 396 Units/L (34-104); Aspartate Amino Transferase 252 Units/L (13-39); BUN/Creatinine Ratio 8 (6-26); Bilirubin,Total 0.5 mg/dL (0.3-1.0); Blood Urea Nitrogen 5 mg/dL (6-20); Calcium 8.2 mg/dL (8.6-10.3); Carbon Dioxide 26 mEq/L (23-29); Chloride 110 mEq/L (98-107); Globulin 2.2 g/dL (2.4-3.5); Glucose 126 mg/dL (70-105); Osmolality,Calculated 295 (280-300); Potassium 3.3 mEq/L (3.5-5.1); Sodium 143 mEq/L (136-145); Total Protein 4.4 g/dL (6.4-8.9); eGFR For Non-African Americans > 60 (> 60)
[2017-12-15] MEDS: Insulin DETEMIR 100 UNIT/ML X5UNITS SQ SCH (23:28)
[2017-12-16] MEDS: OXYCODONE Oral CONC 10 MG/0.5 ML ORAL.SYG SL PRN ×2 (07:52→22:07)
[2017-12-16] MEDS: Insulin LISPRO 300 UNITS/3 ML VIAL SQ SCH ×8 (07:53→21:52)
[2017-12-16] MEDS: Piperacillin/Tazobactam 3.375 GM in 0.9 % Sodium Chloride Mini Bag 100 ML IVPB SCH ×2 (08:15→11:46)
[2017-12-16 08:29] LABS: Basophils % 0.7 %; Eosinophils # 0.2 K/mcL (0.0-0.6); Eosinophils % 4.8 %; Hematocrit 21.7 % (35.3-44.9); Hemoglobin 7.1 g/dL (11.5-15.4); Immature Granulocytes % 1.1 % (0-4); Lymphocytes # 1.8 K/mcL (0.6-4.6); Mean Corpuscular HGB Conc 32.7 g/dL (31.6-35.5); Mean Corpuscular Hemoglobin 31.7 pg (28.0-33.3); Mean Corpuscular Volume 96.9 fL (83.0-100.0); Mean Platelet Volume 9.8 fL (9.4-12.4); Monocytes # 0.5 K/mcL (0.0-1.3); Monocytes % 11.2 %; Platelet Count 265 K/mcL (140-400); Red Blood Count 2.24 M/mcL (3.82-4.97); Red Cell Distribution Width 12.5 % (11.5-14.5); Segmented Neutrophils % 43.2 %
[2017-12-16 08:48] LABS: BUN/Creatinine Ratio 6 (6-26); Blood Urea Nitrogen 4 mg/dL (6-20); Calcium 8.2 mg/dL (8.6-10.3); Carbon Dioxide 19 mEq/L (23-29); Chloride 106 mEq/L (98-107); Glucose 340 mg/dL (70-105); Osmolality,Calculated 298 (280-300); Sodium 139 mEq/L (136-145); eGFR For Non-African Americans > 60 (> 60)
[2017-12-16] MEDS: *HR* Promethazine 25 MG/ML VIAL IVP PRN ×2 (11:56→20:40)
--- NOTE | 2017-12-16 14:06 | Internal Med Progress Note ---
Hospitalist Progress Note - Encounter Date of Encounter: 12/16/17 Time of Encounter: 11:18 - Subjective Interval History: Patient seen and examined this morning. Complained of some nausea. Denied any bowel problems. Is tolerating a liquid diet and ate ice cream. Is ambulating well - Exam Vitals: Temp Pulse Resp BP Pulse Ox 98.4 F 115 17 158/89 97 12/16/17 11:16 12/16/17 11:16 12/16/17 11:16 12/16/17 11:16 12/16/17 11:16 Exam: Constitutional: In no distress, Sitting comfortably HEENT: Legally blind, No JVD, No lymphadenopathy CVS: S1, S2 normal, No MRG, RRR RS: Air entry equal, CTA ABdomen: Soft, mild tenderness on RlQ and epigastrium Extremities: No rash or edema noted Skin : Clear, No rash or ulcers noted Neuro: Cranial nerve gross normal, Motor and sensory exam grossly unremarkable, AOx3 Psych: Appropirate mood and affect, Fair insight. - Assessment and Plan (1) DKA (diabetic ketoacidoses) Current Visit: Yes Status: Resolved (2) Colitis Current Visit: Yes Status: Acute (3) Elevated LFTs Current Visit: Yes Status: Acute (4) PAOLA (acute kidney injury) Current Visit: Yes Status: Resolved (5) Anemia Current Visit: No Status: Acute - Summary of Assessment and Plan Summary of Assessment and Plan: Diabetic ketoacidoses - resolved. anion gap closed. Has previous multiple admission to [facility] for DKA. - continue 10 levemir HS and lispro 5 premeal insulin with meals. c/w sliding scale with accuchecks. Colitis - last CT in July also showed colonic thickening suggestive of Colitis. CTA showed thickened portions of the transverse colon - c/w IVF and Zosyn - tolerating PO intake. Will progress per GI. Reglan for nausea. - f/u outpatient for colonoscopy in 6-8 weeks per GI - Miralax for constipation. - Has Rt IJ TLC. Will remove it if maintaining good nutrition and no plan for TPN. 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 Will monitor for now. DVT Prophylaxis - Mechanical commpression given multiple episode of hemetemesis. Diet: full liquid diet Activity as tolerated- To be seen by PT Plan to discharge once evaluated by PT and latex spooler. and tolerating diet well. - Time Spent with Patient Total time spent is greater than 50% in coordination of care (as documented) at patient's floor/unit and/or counseling patient: Internal Medicine: Result - Labs CBC & Chem 7: 12/16/17 08:02 12/16/17 08:02 Labs: Short CBC 12/16/17 Range/Units 08:02 WBC 4.5 (4.3-11.1) K/mcL Hgb 7.1 L (11.5-15.4) g/dL Hct 21.7 L (35.3-44.9) % Plt Count 265 (140-400) K/mcL Neutrophils # 2.0 (1.6-8.9) K/mcL BMP 12/16/17 08:02 Sodium 139 Potassium 4.0 Chloride 106 Carbon Dioxide 19 L BUN 4 L Creatinine 0.64 Glucose 340 H Calcium 8.2 L - ABG Interpretation ABG results: ABG ABG pH 7.32 pH Units (7.32-7.45) 12/11/17 04:42 ABG pCO2 34 mmHg (35-45) L 12/11/17 04:42 ABG pO2 181 mmHg (85-104) H 12/11/17 04:42 ABG O2 Saturation 100 % (95-98) H 12/11/17 04:42 PT/INR, D-dimer PT 10.7 Seconds (9.4-12.1) 12/10/17 10:55 - VTE Documentation of Mechanical Device: Venous foot pump, device Consult Discharge Plan - Plan Referrals: Josiah Lockhart MD [Partnered Physician] - NONE,PCP [Primary Care Provider] - (1) DKA (diabetic ketoacidoses) Qualifiers: Diabetes mellitus type: type 1 Diabetes mellitus complication detail: with coma Qualified Code(s): E10.11 - Type 1 diabetes mellitus with ketoacidosis with coma
[2017-12-16] MEDS: Insulin DETEMIR 100 UNIT/ML X5UNITS SQ SCH (20:41)
[2017-12-17] MEDS: Piperacillin/Tazobactam 3.375 GM in 0.9 % Sodium Chloride Mini Bag 100 ML IVPB SCH ×3 (00:33→15:48)
[2017-12-17 05:20] LABS: Basophils % 0.4 %; Eosinophils # 0.2 K/mcL (0.0-0.6); Eosinophils % 3.2 %; Hematocrit 22.1 % (35.3-44.9); Hemoglobin 7.3 g/dL (11.5-15.4); Immature Granulocytes % 0.9 % (0-4); Lymphocytes # 2.2 K/mcL (0.6-4.6); Lymphocytes % 31.7 %; Mean Corpuscular Hemoglobin 31.5 pg (28.0-33.3); Mean Corpuscular Volume 95.3 fL (83.0-100.0); Mean Platelet Volume 9.5 fL (9.4-12.4); Monocytes # 1.1 K/mcL (0.0-1.3); Monocytes % 15.6 %; Neutrophils # 3.3 K/mcL (1.6-8.9); Platelet Count 351 K/mcL (140-400); Red Blood Count 2.32 M/mcL (3.82-4.97); Red Cell Distribution Width 12.7 % (11.5-14.5); Segmented Neutrophils % 48.2 %
[2017-12-17] MEDS: OXYCODONE Oral CONC 10 MG/0.5 ML ORAL.SYG SL PRN ×2 (06:03→16:03)
[2017-12-17] MEDS: Insulin LISPRO 300 UNITS/3 ML VIAL SQ SCH ×7 (09:22→22:03)
[2017-12-17] MEDS: *HR* Promethazine 25 MG/ML VIAL IVP PRN ×2 (09:58→17:39)
--- NOTE | 2017-12-17 12:32 | Internal Med Progress Note ---
Hospitalist Progress Note - Encounter Date of Encounter: 12/17/17 Time of Encounter: 12:22 - Subjective Interval History: Patient seen and examined this morning. Minimal nausea. Tolerating full liquid diet well. Denied any bowel problems. Is ambulating well - Exam Vitals: Temp Pulse Resp BP Pulse Ox 99.6 F 109 16 144/83 95 12/17/17 10:21 12/17/17 10:21 12/17/17 10:21 12/17/17 10:21 12/17/17 10:21 Exam: Constitutional: In no distress, Sitting comfortably HEENT: Legally blind, No JVD, No lymphadenopathy CVS: S1, S2 normal, No MRG, RRR RS: Air entry equal, CTA ABdomen: Soft, mild tenderness on RlQ and epigastrium Extremities: No rash or edema noted Skin : Clear, No rash or ulcers noted Neuro: Cranial nerve gross normal, Motor and sensory exam grossly unremarkable, AOx3 Psych: Appropirate mood and affect, Fair insight. Rt IJ - Assessment and Plan (1) DKA (diabetic ketoacidoses) Current Visit: Yes Status: Resolved (2) Colitis Current Visit: Yes Status: Acute (3) Elevated LFTs Current Visit: Yes Status: Acute (4) PAOLA (acute kidney injury) Current Visit: Yes Status: Resolved (5) Anemia Current Visit: No Status: Acute - Summary of Assessment and Plan Summary of Assessment and Plan: Diabetic ketoacidoses - resolved. anion gap closed. Has previous multiple admission to [facility] for DKA. - BG mildly elevatd. Increase levemir HS to 20. Continue lispro 5 premeal insulin with meals. c/w sliding scale with accuchecks. Colitis - last CT in July also showed colonic thickening suggestive of Colitis. CTA showed thickened portions of the transverse colon - Cdiff negative- Vancomycin stopped. - IVF stopped. Day 6 of Zosyn. Blood, urine, sputum cultures-no growth to date. - tolerating liquid diet. Will progress to Regular diet. Reglan/promethazine prn for nausea. - f/u outpatient for colonoscopy in 6-8 weeks per GI. - Miralax prn for constipation. - Has Rt IJ TLC. Will remove it if maintaining good nutrition and no plan for TPN. - GI recommendation appreciated. 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 - Hb stale. Will monitor for now. DVT Prophylaxis - Mechanical commpression given multiple episode of hemetemesis. Diet: full liquid diet Activity as tolerated- To be seen by PT Plan to discharge once evaluated by PT and . and tolerating liquid diet well. - Time Spent with Patient Total time spent is greater than 50% in coordination of care (as documented) at patient's floor/unit and/or counseling patient: Internal Medicine: Result - Labs CBC & Chem 7: 12/17/17 04:44 12/16/17 08:02 Labs: Short CBC 12/17/17 Range/Units 04:44 WBC 6.9 D (4.3-11.1) K/mcL Hgb 7.3 L (11.5-15.4) g/dL Hct 22.1 L (35.3-44.9) % Plt Count 351 (140-400) K/mcL Neutrophils # 3.3 (1.6-8.9) K/mcL - ABG Interpretation ABG results: ABG ABG pH 7.32 pH Units (7.32-7.45) 12/11/17 04:42 ABG pCO2 34 mmHg (35-45) L 12/11/17 04:42 ABG pO2 181 mmHg (85-104) H 12/11/17 04:42 ABG O2 Saturation 100 % (95-98) H 12/11/17 04:42 PT/INR, D-dimer PT 10.7 Seconds (9.4-12.1) 12/10/17 10:55 - VTE Documentation of Mechanical Device: Venous foot pump, device Consult Discharge Plan - Plan Referrals: Josiah Lockhart MD [Partnered Physician] - NONE,PCP [Primary Care Provider] - (1) DKA (diabetic ketoacidoses) Qualifiers: Diabetes mellitus type: type 1 Diabetes mellitus complication detail: with coma Qualified Code(s): E10.11 - Type 1 diabetes mellitus with ketoacidosis with coma
[2017-12-17] MEDS: Acetaminophen 325 MG TABLET PO PRN (15:48)
[2017-12-17] MEDS: Insulin DETEMIR 100 UNIT/ML X5UNITS SQ SCH (22:02)
[2017-12-18] MEDS: OXYCODONE Oral CONC 10 MG/0.5 ML ORAL.SYG SL PRN ×3 (00:05→20:03)
[2017-12-18] MEDS: Acetaminophen 325 MG TABLET PO PRN ×2 (00:07→20:02)
[2017-12-18] MEDS: Piperacillin/Tazobactam 3.375 GM in 0.9 % Sodium Chloride Mini Bag 100 ML IVPB SCH ×3 (00:08→16:31)
[2017-12-18] MEDS: *HR* Promethazine 25 MG/ML VIAL IVP PRN ×3 (01:28→20:02)
[2017-12-18] MEDS: Insulin LISPRO 300 UNITS/3 ML VIAL SQ SCH ×7 (08:46→21:49)
--- NOTE | 2017-12-18 11:37 | Discharge Summary ---
- NOTES TO OUTPATIENT PROVIDER Notes to Outpatient Provider: Needs follow-up colonoscopy in 6-8 weeks. Orders not resulted at time of discharge: Pending orders 12/10/17 18:45 Miscellaneous Lab Test Routine 12/18/17 10:15 Culture,Blood [BC] Routine 12/18/17 11:26 Complete Blood Count [HEME] Stat Date of Encounter: 12/18/17 Time of Encounter: 11:33 - Discharge Diagnosis (1) DKA (diabetic ketoacidoses) Priority: Primary Status: Resolved Qualifiers: Diabetes mellitus type: type 1 Diabetes mellitus complication detail: with coma Qualified Code(s): E10.11 - Type 1 diabetes mellitus with ketoacidosis with coma (2) Colitis Priority: Primary Status: Acute (3) Elevated LFTs Priority: Secondary Status: Acute (4) PAOLA (acute kidney injury) Priority: Primary Status: Resolved (5) Anemia Priority: Secondary Status: Acute Qualifiers: Qualified Code(s): D62 - Acute posthemorrhagic anemia (6) UGIB (upper gastrointestinal bleed) Priority: Primary Status: Acute (7) Diabetes mellitus, with long-term current use of insulin Priority: Secondary Status: Acute Qualifiers: Diabetes mellitus type: other specified (including CLARENCE) Diabetes mellitus complication status: with ketoacidosis Diabetes mellitus complication detail: with coma Qualified Code(s): E13.11 - Other specified diabetes mellitus with ketoacidosis with coma; Z79.4 - senior living (current) use of insulin; 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 Sierra is a 32 year old female with past medical history of diabetes, severe gastroparesis, who came in with with dark vomiting and was found to have DKA. Was initially admitted to ICU and was intubated for acute respiratory failure. Received treatment with IV insulin and fluids for her DKA. GI consultation was obtained, she was empirically treated with vancomycin for C. difficile and Zosyn for colitis. CTA abdomen and pelvis was unremarkable for any vascular stenosis or dissection. Her C.difficile testing came out negative. Her colitis was treated conservatively. When she was transferred to the floor her hemoglobin remained stable. She tolerated a full liquid diet well. She completed her treatment for colitis with Zosyn for 7 days. Her TLC was removed as she did not need TPN. She had mild fever the day before her TLC was remote. Cultures were drawn to be followed as outpatient. Needs to continue PPI and Carafate. Needs follow-up colonoscopy in 6 weeks weeks. Discharge discussed with: patient, case management, organization development consultant - Time Spent with Patient Total time spent providing and/or coordinating discharge services: Greater than 30 minutes - Discharge Medications Prescriptions: Pantoprazole Sodium 40 mg PO BID 30 Days #60 tablet. Sucralfate [Carafate] 1 gm PO BID 30 Days #60 mls Home Medications: Metoprolol [Lopressor] 25 mg PO BID #60 tablet 12/18/16 [Rx] Sodium Bicarbonate 650 mg PO DAILY 03/09/17 [History] Lisinopril/Hydrochlorothiazide [Zestoretic 20-12.5 mg Tablet] 1 tab PO DAILY [History] Metoclopramide HCl 5 mg PO TID PRN #30 tablet 11/05/17 [Rx] Promethazine [Phenergan] 25 mg PO BID PRN 12/10/17 [History] Insulin ASPART [Novolog Flexpen] 5 units SQ TIDWM #0 12/18/17 [Rx] Insulin Glargine,Hum.rec.anlog [Lantus Solostar] 10 unit SQ HS #0 12/18/17 [Rx] Pantoprazole Sodium 40 mg PO BID 30 Days #60 tablet. 12/18/17 [Rx] Sucralfate [Carafate] 1 gm PO BID 30 Days #60 mls 12/18/17 [Rx] Allergies/Adverse Reactions: 3 Allergy/AdvReac Type Severity Reaction Status Date / Time acetaminophen [From [employer]] Allergy Hives Verified 12/11/17 09:01 hydrocodone Allergy Hives Verified 12/11/17 09:01 Date of admission: 12/10/17 09:39 Primary care physician: PCP NONE Consults: 12/11/17 09:28 Consult to Gastroenterology [CONS] Routine Consulting Provider: [facility] Reason for Consult: DKA with hematemesis Call Completed: Yes 12/12/17 13:48 Consult to Surgery [CONS] Routine Consulting Provider: Surgery [facility] Reason for Consult: ischemic bowel Call Completed: Yes 12/16/17 07:47 Consult to Physical Therapy [CONS] Routine Comment: Evaluate, develop and implement POC Reason for Consult: assess strength Does patient have active BEDREST order?: No Is patient medically & hemodynamically stable?: Yes 12/18/17 09:29 OT [Consult to Occupational Therapy] [CONS] Routine Comment: Evaluate, develop and implement POC Reason for Consult: discharge planning Does patient have active BEDREST order?: No Is patient medically & hemodynamically stable?: Yes Discharging clinician: Lynn Bajwa - Constitutional Vitals: Temp Pulse Resp BP Pulse Ox 98.8 F 105 17 146/78 96 12/18/17 11:14 12/18/17 11:14 12/18/17 11:14 12/18/17 11:14 12/18/17 11:14 General appearance: Present: A&O X 3, no acute distress Exam: Constitutional: In no distress, Sitting comfortably HEENT: Legally blind, No JVD, No lymphadenopathy CVS: S1, S2 normal, No MRG, RRR RS: Air entry equal, CTA ABdomen: Soft, mild tenderness on RlQ and epigastrium Extremities: No rash or edema noted Skin : Clear, No rash or ulcers noted Neuro: Cranial nerve gross normal, Motor and sensory exam grossly unremarkable, AOx3 Psych: Appropirate mood and affect, Fair insight. Rt IJ - Patient Status Disposition: Home, Self-Care Condition: Critical - Discharge Instructions Follow Up With: Josiah Lockhart MD [Partnered Physician] - NONE,PCP [Primary Care Provider] - - VTE Documentation of Mechanical Device: Venous foot pump, device
[2017-12-18 13:45] LABS: Hematocrit 20.6 % (35.3-44.9); Hemoglobin 6.4 g/dL (11.5-15.4); Mean Corpuscular HGB Conc 31.1 g/dL (31.6-35.5); Mean Corpuscular Hemoglobin 31.4 pg (28.0-33.3); Mean Platelet Volume 9.8 fL (9.4-12.4); Platelet Count 308 K/mcL (140-400); Red Blood Count 2.04 M/mcL (3.82-4.97)
[2017-12-18 14:46] LABS: Eosinophils # 0.2 K/mcL (0.0-0.6); Lymphocytes # 2.5 K/mcL (0.6-4.6); Neutrophils # 1.9 K/mcL (1.6-8.9)
[2017-12-18 14:48] LABS: Platelet Estimate Normal (Normal)
[2017-12-18 14:49] LABS: Anisocytosis 1+ (Not Present)
[2017-12-18 15:17] LABS: Basophilic Stippling 1+ (Not Present)
[2017-12-18] MEDS ORDERED: 0.9 % Sodium Chloride 250 ML ONE (19:45)
[2017-12-18] MEDS: Sucralfate 1 GM TABLET PO SCH (22:06)
[2017-12-18] MEDS: Insulin DETEMIR 100 UNIT/ML X5UNITS SQ SCH (22:07)
[2017-12-19] MEDS: Sucralfate 1 GM TABLET PO SCH ×3 (00:27→12:41)
[2017-12-19] MEDS: Piperacillin/Tazobactam 3.375 GM in 0.9 % Sodium Chloride Mini Bag 100 ML IVPB SCH ×2 (00:28→09:27)
[2017-12-19] MEDS: OXYCODONE Oral CONC 10 MG/0.5 ML ORAL.SYG SL PRN ×2 (06:00→14:59)
[2017-12-19] MEDS: *HR* Promethazine 25 MG/ML VIAL IVP PRN ×2 (06:01→12:41)
[2017-12-19 06:27] LABS: Basophils % 0.3 %; Eosinophils # 0.2 K/mcL (0.0-0.6); Hemoglobin 7.9 g/dL (11.5-15.4); Immature Granulocytes % 3.6 % (0-4); Lymphocytes # 2.3 K/mcL (0.6-4.6); Lymphocytes % 37.6 %; Mean Corpuscular HGB Conc 32.9 g/dL (31.6-35.5); Monocytes # 0.8 K/mcL (0.0-1.3); Monocytes % 13.2 %; Neutrophils # 2.6 K/mcL (1.6-8.9); Platelet Count 309 K/mcL (140-400); Red Blood Count 2.55 M/mcL (3.82-4.97); Red Cell Distribution Width 14.6 % (11.5-14.5); Segmented Neutrophils % 42.3 %
[2017-12-19 06:34] LABS: Mean Corpuscular Volume 94.1 fL (83.0-100.0)
[2017-12-19] MEDS: Insulin LISPRO 300 UNITS/3 ML VIAL SQ SCH ×4 (09:25→12:42)
[2017-12-19] MEDS: Acetaminophen 325 MG TABLET PO PRN (09:26)
[2017-12-19] MEDS: *HR* Labetalol 20 MG/4 ML SYRINGE IVP PRN (09:30)
[2017-12-19 12:03] VITALS: BP 148/85
== END 2017-12-19 17:15 | disposition home or self-care (01) | DRG 720 ==
LOC: EMEROOARM 06:20 → MERGE 09:39 → ICNU 09:39 → SUATTDRO 09:39 → ICNU 10:30 → 2ANU 12-14 15:11
PROVIDERS: ADMIT Internal Medicine Hospice and Palliative Medicine; ATTEND Hospitalist

== ENCOUNTER 2018-02-15 11:24 | Observation (INO) ==
[2018-02-15] MEDS ORDERED: 0.9 % Sodium Chloride 1,000 ML IVC ONE ×2 (11:35→11:48)
--- NOTE | 2018-02-15 11:49 | Emergency Department Note ---
Disposition Clinical Impression: DKA (diabetic ketoacidoses) Disposition: Admitted As Inpatient Condition: Fair General Adult HPI - General Chief complaint: ED Weakness Stated complaint: "hyperglycemia" Time Seen by Provider: 02/15/18 11:34 - History of Present Illness Pain Scale: 8 - Related Data Home Medications Medication Instructions Recorded Confirmed RX: Sodium Bicarbonate 650 mg PO DAILY 03/09/17 02/15/18 RX: Lisinopril/Hydrochlorothiazide 1 tab PO DAILY 04/23/17 02/15/18 [Zestoretic 20-12.5 mg Tablet] RX: Promethazine [Phenergan] 25 mg PO BID PRN 12/10/17 02/15/18 Previous Rx's Medication Instructions Recorded RX: Insulin ASPART [Novolog 5 units SQ TIDWM #0 12/18/17 Flexpen] RX: Insulin Glargine,Hum.rec.anlog 10 unit SQ HS #0 12/18/17 [Lantus Solostar] Allergies Allergy/AdvReac Type Severity Reaction Status Date / Time hydrocodone Allergy Hives Verified 02/15/18 12:37 Past Medical History - Past Medical History Medical history: Reports: diabetes, GERD, glaucoma, hyperlipidemia, arthritis, hypertension, liver disease, osteoporosis, cirrhosis Surgical history: Reports: appendectomy, , cholecystectomy, sinus surgery, other Psychiatric history: Reports: anxiety [employer]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 - Social History Smoking Status: Never smoker Smokeless Tobacco Status: No Alcohol use: Reports: none Drug use: Reports: none Course Vital Signs Temperature 98.4 F 02/15/18 11:29 Pulse Rate 134 02/15/18 11:29 Respiratory Rate 22 02/15/18 11:29 Blood Pressure 138/94 02/15/18 11:29 O2 Sat by Pulse Oximetry 100 02/15/18 11:29 Temperature 98.0 F 02/15/18 21:53 Pulse Rate 104 02/15/18 22:00 Respiratory Rate 16 02/15/18 22:00 Blood Pressure 118/73 02/15/18 22:00 O2 Sat by Pulse Oximetry 99 02/15/18 22:00 Oxygen Delivery Oxygen Delivery Room Air Medical Decision Making - Lab Data Result diagrams: 02/15/18 13:04 02/15/18 19:11 Lab Results 02/15/18 02/15/18 02/15/18 Range/Units 11:37 11:47 12:00 WBC (4.3-11.1) K/mcL RBC (3.82-4.97) M/mcL Hgb (11.5-15.4) g/dL Hct (35.3-44.9) % MCV (83.0-100.0) fL MCH (28.0-33.3) pg MCHC (31.6-35.5) g/dL RDW (11.5-14.5) % Plt Count (140-400) K/mcL MPV (9.4-12.4) fL Immature Gran % (0-4) % Seg Neutrophils % % Lymphocytes % % Monocytes % % Eosinophils % % Basophils % % Neutrophils # (1.6-8.9) K/mcL Lymphocytes # (0.6-4.6) K/mcL Monocytes # (0.0-1.3) K/mcL Eosinophils # (0.0-0.6) K/mcL Basophils # (0.0-0.2) K/mcL VBG pH (7.32-7.42) pH Units VBG pCO2 (41-51) mmHg VBG pO2 (25-50) mmHg VBG HCO3 (21-27) mEq/L Sodium (136-145) mEq/L Potassium (3.5-5.1) mEq/L Chloride (98-107) mEq/L Carbon Dioxide (23-29) mEq/L BUN (6-20) mg/dL Creatinine (0.60-1.20) mg/dL Est GFR ( Amer) (> 60) Est GFR (Non-Af Amer) (> 60) BUN/Creatinine Ratio (6-26) Glucose (70-105) mg/dL POC Glucose 233 H (70-99) mg/dL Calculated Osmolality (280-300) Calcium (8.6-10.3) mg/dL Troponin I (< 0.04) ng/mL Beta-Hydroxybutyric Acd (0.02-0.27) mmol/L Ur Specimen Adequacy See below A Urine Color Red A (Yellow) Urine Clarity Cloudy A (Clear) Urine pH 5.5 (5.0-8.0) pH Units Ur Specific [place] 1.027 H (1.010-1.025) Urine Protein >=300 H (Neg-Trace) mg/dL Urine Glucose (UA) >=1000 H (Normal) mg/dL Urine Ketones >=160 H (Negative) mg/dL Urine Blood Large H (Negative) Urine Nitrite Negative (Negative) Urine Bilirubin Moderate H (Negative) Urine Urobilinogen Normal (Normal) mg/dL Ur Leukocyte Esterase Negative (Negative) Ur Culture Indicated? NO (NO) Urine Test Negative (Negative) Specimen Rejected 02/15/18 02/15/18 02/15/18 Range/Units 12:20 12:20 12:20 WBC (4.3-11.1) K/mcL RBC (3.82-4.97) M/mcL Hgb (11.5-15.4) g/dL Hct (35.3-44.9) % MCV (83.0-100.0) fL MCH (28.0-33.3) pg MCHC (31.6-35.5) g/dL RDW (11.5-14.5) % Plt Count (140-400) K/mcL MPV (9.4-12.4) fL Immature Gran % (0-4) % Seg Neutrophils % % Lymphocytes % % Monocytes % % Eosinophils % % Basophils % % Neutrophils # (1.6-8.9) K/mcL Lymphocytes # (0.6-4.6) K/mcL Monocytes # (0.0-1.3) K/mcL Eosinophils # (0.0-0.6) K/mcL Basophils # (0.0-0.2) K/mcL VBG pH (7.32-7.42) pH Units VBG pCO2 (41-51) mmHg VBG pO2 (25-50) mmHg VBG HCO3 (21-27) mEq/L Sodium 135 L (136-145) mEq/L Potassium 4.6 (3.5-5.1) mEq/L Chloride 104 (98-107) mEq/L Carbon Dioxide 8 L* (23-29) mEq/L BUN 12 (6-20) mg/dL Creatinine 1.23 H (0.60-1.20) mg/dL Est GFR ( Amer) > 60 (> 60) Est GFR (Non-Af Amer) 50 L (> 60) BUN/Creatinine Ratio 10 (6-26) Glucose 227 H (70-105) mg/dL POC Glucose (70-99) mg/dL Calculated Osmolality 287 (280-300) Calcium 8.7 (8.6-10.3) mg/dL Troponin I < 0.03 (< 0.04) ng/mL Beta-Hydroxybutyric Acd > 2.00 H (0.02-0.27) mmol/L Ur Specimen Adequacy Urine Color (Yellow) Urine Clarity (Clear) Urine pH (5.0-8.0) pH Units Ur Specific [place] (1.010-1.025) Urine Protein (Neg-Trace) mg/dL Urine Glucose (UA) (Normal) mg/dL Urine Ketones (Negative) mg/dL Urine Blood (Negative) Urine Nitrite (Negative) Urine Bilirubin (Negative) Urine Urobilinogen (Normal) mg/dL Ur Leukocyte Esterase (Negative) Ur Culture Indicated? (NO) Urine Test (Negative) Specimen Rejected Clotted 02/15/18 02/15/18 Range/Units 12:52 13:04 WBC 6.7 (4.3-11.1) K/mcL RBC 3.47 L (3.82-4.97) M/mcL Hgb 10.3 L (11.5-15.4) g/dL Hct 32.1 L (35.3-44.9) % MCV 92.5 (83.0-100.0) fL MCH 29.7 (28.0-33.3) pg MCHC 32.1 (31.6-35.5) g/dL RDW 13.4 (11.5-14.5) % Plt Count 267 (140-400) K/mcL MPV 11.3 (9.4-12.4) fL Immature Gran % 0.9 (0-4) % Seg Neutrophils % 75.2 % Lymphocytes % 15.7 % Monocytes % 7.2 % Eosinophils % 0.4 % Basophils % 0.6 % Neutrophils # 5.0 (1.6-8.9) K/mcL Lymphocytes # 1.1 (0.6-4.6) K/mcL Monocytes # 0.5 (0.0-1.3) K/mcL Eosinophils # 0.0 (0.0-0.6) K/mcL Basophils # 0.0 (0.0-0.2) K/mcL VBG pH 7.22 L (7.32-7.42) pH Units VBG pCO2 30 L (41-51) mmHg VBG pO2 132 H (25-50) mmHg VBG HCO3 12 L (21-27) mEq/L Sodium (136-145) mEq/L Potassium (3.5-5.1) mEq/L Chloride (98-107) mEq/L Carbon Dioxide (23-29) mEq/L BUN (6-20) mg/dL Creatinine (0.60-1.20) mg/dL Est GFR ( Amer) (> 60) Est GFR (Non-Af Amer) (> 60) BUN/Creatinine Ratio (6-26) Glucose (70-105) mg/dL POC Glucose (70-99) mg/dL Calculated Osmolality (280-300) Calcium (8.6-10.3) mg/dL Troponin I (< 0.04) ng/mL Beta-Hydroxybutyric Acd (0.02-0.27) mmol/L Ur Specimen Adequacy Urine Color (Yellow) Urine Clarity (Clear) Urine pH (5.0-8.0) pH Units Ur Specific [place] (1.010-1.025) Urine Protein (Neg-Trace) mg/dL Urine Glucose (UA) (Normal) mg/dL Urine Ketones (Negative) mg/dL Urine Blood (Negative) Urine Nitrite (Negative) Urine Bilirubin (Negative) Urine Urobilinogen (Normal) mg/dL Ur Leukocyte Esterase (Negative) Ur Culture Indicated? (NO) Urine Test (Negative) Specimen Rejected Critical Care Time Critical Care Time: Yes Total Critical Care Time: 30 Attestation: The high probability of a clinically significant, sudden or life threatening deterioration of the [] system(s) required my full and direct attention, intervention and personal management. The aggregate critical care time was [] minutes. This time is in addition to time spent performing reported procedures but includes the following: [] Data Review and interpretation [] Patient assessment and monitoring of vital signs [] Documentation [] Medication orders and management Attestation Statement - Attestation Attestation: I examined this patient and my medical decision-making was reviewed with the Resident Physician. I agree with the documented findings, disposition and treatment plan as described except to the extent set forth below. [id number] time provided Patient arrives complaining of hyperglycemia as well as nausea and vomiting. She is a type I diabetic. She appears older than stated age on exam. Workup to evaluate and treat for possible diabetic ketoacidosis.
--- NOTE | 2018-02-15 12:00 | Emergency Department Note ---
Disposition Clinical Impression: DKA (diabetic ketoacidoses) Qualifiers: Diabetes mellitus type: type 1 Diabetes mellitus complication detail: without coma Qualified Code(s): E10.10 - Type 1 diabetes mellitus with ketoacidosis without coma Disposition: Admitted As Inpatient Condition: Fair Referrals: Josiah Lockhart MD [Primary Care Provider] - Forms: ED Satisfaction Letter General Adult HPI - General Chief complaint: ED Weakness Stated complaint: "hyperglycemia" Time Seen by Provider: 02/15/18 11:34 Source: patient Mode of arrival: private vehicle Limitations: no limitations Nursing Notes Reviewed: Yes Vital Signs Reviewed: Yes - History of Present Illness HPI Narrative: 32-year-old female history of type 1 diabetes currently uses shots with a prior history of numerous episodes of DKA who presents to the ER thinking that she is in DKA. Reports nausea for the last 4 days. She started vomiting yesterday nonbloody nonbilious. Reports of generalized abdominal pain which is consistent when she is in DKA. States she was able to eat ice cream last night nothing else since then. No recent adjustments to her insulin. She does report a cough for a few days. No other complaints. Pt Subjective Complaint: Possible DKA Onset (ago): day(s) Location: abdomen Pain Scale: 8 Improves with: nothing Worsens with: nothing Associated symptoms: Reports: nausea/vomiting Treatments Prior to Arrival: none - Related Data Home Medications Medication Instructions Recorded Confirmed Sodium Bicarbonate 650 mg PO DAILY 03/09/17 08/01/17 Lisinopril/Hydrochlorothiazide 1 tab PO DAILY 04/23/17 08/01/17 [Zestoretic 20-12.5 mg Tablet] Promethazine [Phenergan] 25 mg PO BID PRN 12/10/17 12/10/17 Previous Rx's Medication Instructions Recorded Metoclopramide HCl 5 mg PO TID PRN #30 tablet 11/05/17 Insulin ASPART [Novolog Flexpen] 5 units SQ TIDWM #0 12/18/17 Insulin Glargine,Hum.rec.anlog 10 unit SQ HS #0 12/18/17 [Lantus Solostar] Pantoprazole Sodium 40 mg PO BID 30 Days #60 tablet. 12/18/17 Sucralfate [Carafate] 1 gm PO BID 30 Days #60 mls 08/27/18 Allergies Allergy/AdvReac Type Severity Reaction Status Date / Time hydrocodone Allergy Hives Verified 02/15/18 12:37 All systems ED: reviewed and negative except as stated. Constitutional: Reports: fever (Subjective), chills Respiratory: Reports: cough Gastrointestinal: Reports: abdominal pain, nausea, vomiting. Denies: diarrhea Genitourinary: Reports: dysuria, hematuria Past Medical History - Past Medical History Attestation: Yes The following information was validated with the patient. 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 - Social History Smoking Status: Never smoker Smokeless Tobacco Status: No Alcohol use: Reports: none Drug use: Reports: none Physical Exam - General Limitations: no limitations General appearance: alert, in no apparent distress - Head Head exam: atraumatic, normocephalic - Eye Eye exam: Present: normal appearance - ENT ENT exam: normal exam - Neck Neck exam: Present: normal inspection - Chest Chest inspection: Present: normal inspection, symmetric chest wall rise - Respiratory Respiratory exam: Present: normal lung sounds bilaterally - Cardiovascular Cardiovascular exam: Present: normal rhythm, tachycardia, normal heart sounds - Abdominal Exam Abdominal exam: Present: soft, tenderness (Mild diffuse tenderness). Absent: distention, guarding, rigidity - Extremities Exam Extremities exam: Present: normal inspection, full ROM - Expanded Upper Extremity Exam Shoulder exam: Present: normal inspection, full ROM Arm exam: Present: normal inspection, full ROM Elbow exam: Present: normal inspection, full ROM Forearm/Wrist exam: Present: normal inspection, full ROM Hand exam: Present: normal inspection, full ROM - Expanded Lower Extremity Exam Hip/Pelvis exam: Present: normal inspection, full ROM Upper leg exam: Present: normal inspection, full ROM Knee exam: Present: normal inspection, full ROM Lower leg exam: Present: normal inspection, full ROM Ankle exam: Present: normal inspection, full ROM Foot/toe exam: Present: normal inspection, full ROM - Neurological Exam Neurological exam: Present: alert, other (GCS 15. No focal deficits.) - Skin Skin exam: Present: warm, dry Course Course Narrative: Patient seen and examined. Vital signs reviewed. Plan for labs for analysis of DKA, EKG, chest x-ray and urinalysis. IV fluids were ordered. - Reevaluation(s) Reevaluation #1: Patient is noted to be in DKA. Also requests something for nausea. Vital Signs Temperature 98.4 F 02/15/18 11:29 Pulse Rate 134 02/15/18 11:29 Respiratory Rate 22 02/15/18 11:29 Blood Pressure 138/94 02/15/18 11:29 O2 Sat by Pulse Oximetry 100 02/15/18 11:29 Temperature 98.4 F 02/15/18 12:19 Pulse Rate 117 02/15/18 13:30 Respiratory Rate 20 02/15/18 13:30 Blood Pressure 129/73 02/15/18 13:30 O2 Sat by Pulse Oximetry 100 02/15/18 13:30 Oxygen Delivery Oxygen Delivery Room Air Medical Decision Making - MDM Narrative Medical decision making narrative: 32-year-old female presenting due to concern for DKA. She is in fact in DKA today. Noted to be severely acidotic with a bicarbonate of 8. Patient received 2 L of IV fluids. She was started on D5 half-normal saline with 20 mEq of potassium for maintenance fluids. She is also on an insulin drip at this point. The patient is admitted to the intensive care unit under the care of the hospitalist. - Lab Data Lab results reviewed: Yes I reviewed the patient's lab results. Result diagrams: 02/15/18 12:20 Lab Results 02/15/18 02/15/18 02/15/18 Range/Units 11:47 12:00 12:20 VBG pH (7.32-7.42) pH Units VBG pCO2 (41-51) mmHg VBG pO2 (25-50) mmHg VBG HCO3 (21-27) mEq/L Sodium 135 L (136-145) mEq/L Potassium 4.6 (3.5-5.1) mEq/L Chloride 104 (98-107) mEq/L Carbon Dioxide 8 L* (23-29) mEq/L BUN 12 (6-20) mg/dL Creatinine 1.23 H (0.60-1.20) mg/dL Est GFR ( Amer) > 60 (> 60) Est GFR (Non-Af Amer) 50 L (> 60) BUN/Creatinine Ratio 10 (6-26) Glucose 227 H (70-105) mg/dL Calculated Osmolality 287 (280-300) Calcium 8.7 (8.6-10.3) mg/dL Troponin I < 0.03 (< 0.04) ng/mL Beta-Hydroxybutyric Acd (0.02-0.27) mmol/L Ur Specimen Adequacy See below A Urine Color Red A (Yellow) Urine Clarity Cloudy A (Clear) Urine pH 5.5 (5.0-8.0) pH Units Ur Specific [place] 1.027 H (1.010-1.025) Urine Protein >=300 H (Neg-Trace) mg/dL Urine Glucose (UA) >=1000 H (Normal) mg/dL Urine Ketones >=160 H (Negative) mg/dL Urine Blood Large H (Negative) Urine Nitrite Negative (Negative) Urine Bilirubin Moderate H (Negative) Urine Urobilinogen Normal (Normal) mg/dL Ur Leukocyte Esterase Negative (Negative) Ur Culture Indicated? NO (NO) Urine Test Negative (Negative) Specimen Rejected 02/15/18 02/15/18 02/15/18 Range/Units 12:20 12:20 12:52 VBG pH 7.22 L (7.32-7.42) pH Units VBG pCO2 30 L (41-51) mmHg VBG pO2 132 H (25-50) mmHg VBG HCO3 12 L (21-27) mEq/L Sodium (136-145) mEq/L Potassium (3.5-5.1) mEq/L Chloride (98-107) mEq/L Carbon Dioxide (23-29) mEq/L BUN (6-20) mg/dL Creatinine (0.60-1.20) mg/dL Est GFR ( Amer) (> 60) Est GFR (Non-Af Amer) (> 60) BUN/Creatinine Ratio (6-26) Glucose (70-105) mg/dL Calculated Osmolality (280-300) Calcium (8.6-10.3) mg/dL Troponin I (< 0.04) ng/mL Beta-Hydroxybutyric Acd > 2.00 H (0.02-0.27) mmol/L Ur Specimen Adequacy Urine Color (Yellow) Urine Clarity (Clear) Urine pH (5.0-8.0) pH Units Ur Specific [place] (1.010-1.025) Urine Protein (Neg-Trace) mg/dL Urine Glucose (UA) (Normal) mg/dL Urine Ketones (Negative) mg/dL Urine Blood (Negative) Urine Nitrite (Negative) Urine Bilirubin (Negative) Urine Urobilinogen (Normal) mg/dL Ur Leukocyte Esterase (Negative) Ur Culture Indicated? (NO) Urine Test (Negative) Specimen Rejected Clotted - Radiology Data Radiology results reviewed: Yes I reviewed the patient's radiology results. Chest X-Ray 02/15/18 11:50 IMPRESSION: No acute cardiopulmonary disease. D/ / Regino Regalado MD / Regino Regalado MD Interpreting Provider: Regino Regalado MD - EKG Data EKG #1 EKG attestation: Yes I reviewed and interpreted this EKG. EKG results narrative: EKG demonstrates sinus tachycardia with rate 128. Normal axis. Normal intervals. Normal R-wave progression. Nonspecific ST-T wave changes in the lateral leads. No gross ST elevations or depressions. No acute ischemic findings. No significant changes from previous EKG dated 02/07/16. S.Tera.Beth - Donna.Linda Situation: Demographics, MOA Background: Presenting Complaint, Relevant PMH, Meds, & Allergies Assessment: Vital Signs, Course and respsone to treatment, Exam Concerns, Patient/Family Expectation, Pertinant Lab Results Recommendation: Barrier(s) to disposition, Recommendation based on pending studies, treatments, or consults S.B.ASussy Report Given to: Dr. Anahy Toribio Repor Time: 14:24
[2018-02-15 12:19] LABS: Bilirubin,Urine Moderate (Negative); Blood,Urine Large (Negative); Clarity,Urine Cloudy (Clear); Color,Urine Red (Yellow); Glucose,Urine (UA) >=1000 mg/dL (Normal); Ketones,Urine >=160 mg/dL (Negative); Leukocyte Esterase,Urine Negative (Negative); Nitrite,Urine Negative (Negative); PH,Urine 5.5 pH Units (5.0-8.0); Protein,Urine >=300 mg/dL (Neg-Trace); Specific Gravity,Urine 1.027 (1.010-1.025); Urobilinogen,Urine Normal (Normal)
[2018-02-15 12:55] LABS: VBG HCO3 12 mEq/L (21-27); VBG PCO2 30 mmHg (41-51); VBG PH 7.22 pH Units (7.32-7.42); VBG PO2 132 mmHg (25-50)
[2018-02-15 13:04] LABS: Troponin I < 0.03 ng/mL (< 0.04)
[2018-02-15 13:38] LABS: BUN/Creatinine Ratio 10 (6-26); Blood Urea Nitrogen 12 mg/dL (6-20); Calcium 8.7 mg/dL (8.6-10.3); Carbon Dioxide 8 mEq/L (23-29); Chloride 104 mEq/L (98-107); Glucose 227 mg/dL (70-105); Osmolality,Calculated 287 (280-300); Potassium 4.6 mEq/L (3.5-5.1); Sodium 135 mEq/L (136-145); eGFR For Non-African Americans 50 (> 60)
[2018-02-15 14:05] LABS: Basophils % 0.6 %; Eosinophils % 0.4 %; Hematocrit 32.1 % (35.3-44.9); Hemoglobin 10.3 g/dL (11.5-15.4); Immature Granulocytes % 0.9 % (0-4); Lymphocytes # 1.1 K/mcL (0.6-4.6); Lymphocytes % 15.7 %; Mean Corpuscular HGB Conc 32.1 g/dL (31.6-35.5); Mean Corpuscular Hemoglobin 29.7 pg (28.0-33.3); Mean Corpuscular Volume 92.5 fL (83.0-100.0); Mean Platelet Volume 11.3 fL (9.4-12.4); Monocytes # 0.5 K/mcL (0.0-1.3); Monocytes % 7.2 %; Platelet Count 267 K/mcL (140-400); Red Blood Count 3.47 M/mcL (3.82-4.97); Red Cell Distribution Width 13.4 % (11.5-14.5); Segmented Neutrophils % 75.2 %
[2018-02-15] MEDS: D5% in 0.45% NACL w KCl 20 MEQ/1,000 ML MLS IVC SCH ×2 (14:11→21:01)
[2018-02-15] MEDS ORDERED: *HR* Promethazine 25 MG/ML VIAL IVP ONE (14:14)
[2018-02-15] MEDS: Insulin Human Regular 100 UNIT in 0.9 % Sodium Chloride 100 ML IVC SCH ×2 (14:38→16:30)
[2018-02-15] MEDS ORDERED: Naloxone 0.4 MG/ML INJ IVP PRN (14:47)
[2018-02-15] MEDS ORDERED: *HR* Dextrose 50 % in Water (Syg) 50 ML SYRINGE IVP PRN (14:48)
[2018-02-15] MEDS ORDERED: Insulin Regular, Human 100 UNIT/ML IV PRN (14:48)
[2018-02-15] MEDS ORDERED: D5% in 0.45% NACL 1,000 ML IVC PRN (14:48)
[2018-02-15] MEDS ORDERED: Insulin Human Regular 100 UNIT in 0.9 % Sodium Chloride 100 ML IVC SCH (15:00)
[2018-02-15] MEDS ORDERED: Acetaminophen 325 MG TABLET PO PRN (15:17)
[2018-02-15] MEDS ORDERED: traMADol 50 MG TABLET PO PRN (15:18)
--- NOTE | 2018-02-15 15:26 | Internal Med History&Physical ---
Date of Encounter: 02/15/18 Time of Encounter: 15:00 Internal Medicine - H&P: HPI Chief complaint: Abdominal pain, nausea , vomiting of 2 days duration History of present illness: Ms. Sierra is a 32 year old female with pmh of type 1 diabetes, hypertension, GERD presenting with complaints of abdominal pain, nausea and vomiting of 2 days duration. Patient has multiple admissions for DKA but she insists she is compliant with her insulin regimen. She complained of having a fruity breath yesterday afternoon and began to have nausea and vomiting last night. She began to have abdominal pain toda which she described as diffuse tenderness 12/01. She was brought to the ER by her due to her nausea and vomiting. She denies nay fevers, admits to chills and shortness of breath In the Er, she was noted to have an elevated blood sugar and an anion gap of 23. She was started on an insulin drip and is being admitted for further management. Past Med Surg Social Fam HX - Past Medical History Medical history: diabetes, GERD, glaucoma, hyperlipidemia, arthritis, hypertension, liver disease, osteoporosis, cirrhosis Additional medical history: detached retina left eye, spenomegally, hepatomegally Psychiatric history: anxiety - Past Surgical History Surgical History: appendectomy, , cholecystectomy, sinus surgery, other Additional surgical history: eye surgery - Social History Smoking Status: Never smoker Smokeless Tobacco Status: No Alcohol use: none Drug use: none - Family History Grandmother Family Member Ethnicity: Non- Living Status: Still Living Hx Family Cardiac Disorders: No Hx Family Respiratory Disorders: No Hx Family Cancer: No Hx Family GI Disorders: No Hx Family Endocrine Disorder: Yes (type 2 diabetes) Hx Family Neuromuscular Disorders: No Hx Family Neurologic Disorders: Yes (stroke) Hx Family HEENT Disorders: No Hx Family Autoimmune Disorders: No Internal Medicine - H&P: Meds Sodium Bicarbonate 650 mg PO DAILY 03/09/17 [History] Lisinopril/Hydrochlorothiazide [Zestoretic 20-12.5 mg Tablet] 1 tab PO DAILY 04/23/17 [History] Promethazine [Phenergan] 25 mg PO BID PRN 12/10/17 [History] Insulin ASPART [Novolog Flexpen] 5 units SQ TIDWM #0 12/18/17 [Rx] Insulin Glargine,Hum.rec.anlog [Lantus Solostar] 10 unit SQ HS #0 12/18/17 [Rx] Allergy/AdvReac Type Severity Reaction Status Date / Time hydrocodone Allergy Hives Verified 02/15/18 12:37 All Systems PM: A 10-system review of systems was performed and is negative for pertinent findings except as documented above in the HPI. - Constitutional Constitutional: lethargy, malaise, no chills, no fever(s), no night sweats - EENT Eyes: no change in vision, no discharge, no pain, no photophobia Ears: no ear discharge, no ear pain, no tinnitus Nose, mouth and throat: no dysphagia, no nasal discharge, no neck pain, no sore throat - Cardiovascular Cardiovascular ROS IM: no chest pain, no diaphoresis, no dyspnea, no lightheadedness, no palpitations, no syncope - Respiratory Respiratory: no cough, no dyspnea, no wheezing, no excessive phlegm production - Gastrointestinal Gastrointestinal: abdominal pain, nausea, vomiting, no diarrhea, no hematemesis, no hematochezia, no melena - Genitourinary Genitourinary: no change in urinary stream, no dysuria, no flank pain, no hematuria - Musculoskeletal Musculoskeletal ROS IM: no numbness, no tingling - Integumentary Integumentary IM: no rash, no unusual bruising - Neurological Neurological ROS: no confusion, no convulsions, no focal weakness, no numbness, no tingling, no tremor(s) - Hematologic/Lymphatic Hematologic/Lymphatic: no easy bruising - Constitutional Vitals: Temp Pulse Resp BP Pulse Ox 98.4 F 117 20 118/76 100 02/15/18 12:19 02/15/18 14:00 02/15/18 14:00 02/15/18 14:00 02/15/18 14:00 Exam: mild distress - Head Head exam: Present: atraumatic, normocephalic - Eye Eye exam: Present: PERRL, conjuntiva pink, sclera anicteric Pupils: Present: PERRL - Neck Neck exam general surgery: Present: supple, trachea midline. Absent: l ymphadenopathy - Respiratory Respiratory exam: Present: CTAB. Absent: accessory muscle use, rales, rhonchi, wheezes - Cardiovascular Cardiovascular exam: Present: RRR, +S1, +S2. Absent: diastolic murmur, gallop, rubs, systolic murmur - GI/Abdominal GI/Abdominal exam: Present: normal bowel sounds, soft, no peritoneal signs. Absent: distended, tenderness Additional comments: Diffuse abdominal pain - Extremities Exam Extremities exam: Present: warm, radial pulses palpable and symmetrical. Absent: calf tenderness, cyanotic, pedal edema - Neurological Exam Neurological exam: Present: CN II-XII intact, oriented X3, no focal deficits. Absent: pronater drift, facial droop, speech deficit - Skin Skin exam: Present: dry, intact Internal Med - H&P Results - Labs CBC & Chem 7: 02/15/18 13:04 02/15/18 12:20 Labs: Short CBC 02/15/18 Range/Units 13:04 WBC 6.7 (4.3-11.1) K/mcL Hgb 10.3 L (11.5-15.4) g/dL Hct 32.1 L (35.3-44.9) % Plt Count 267 (140-400) K/mcL Neutrophils # 5.0 (1.6-8.9) K/mcL BMP 02/15/18 12:20 Sodium 135 L Potassium 4.6 Chloride 104 Carbon Dioxide 8 L* BUN 12 Creatinine 1.23 H Glucose 227 H Calcium 8.7 Cardiac Enzymes 02/15/18 Range/Units 12:20 Troponin I < 0.03 (< 0.04) ng/mL Urine 02/15/18 Range/Units 11:47 Urine Color Red A (Yellow) Urine Clarity Cloudy A (Clear) Urine pH 5.5 (5.0-8.0) pH Units Ur Specific [place] 1.027 H (1.010-1.025) Urine Protein >=300 H (Neg-Trace) mg/dL Urine Glucose (UA) >=1000 H (Normal) mg/dL - ABG Interpretation ABG results: 02/15/18 12:52 VBG pH 7.22 L VBG pCO2 30 L VBG pO2 132 H VBG HCO3 12 L - Impressions ITS Impressions Chest X-Ray 02/15/18 11:50 IMPRESSION: No acute cardiopulmonary disease. D/ / Regino Regalado MD / ZenaidaAndrey Regalado MD Interpreting Provider: Regino Regalado MD - Assessment and plan (1) DKA (diabetic ketoacidoses) Current Visit: Yes Status: Acute Assessment and plan: Came in with elevated blood sugar, elevated anion gap and elevated beta hydroxybutyric acid Will start on an insulin drip and titrate till anion gap closes. Plan to advance diet and transition to subcutaneous insulin once sugars are controlled Qualifiers: Diabetes mellitus type: type 1 Diabetes mellitus complication detail: without coma Qualified Code(s): E10.10 - Type 1 diabetes mellitus with ketoacidosis without coma (2) Diabetes mellitus type 1 Current Visit: Yes Status: Acute Assessment and plan: Continue insulin and monitor fingersticks Qualifiers: Qualified Code(s): E10.10 - Type 1 diabetes mellitus with ketoacidosis without coma (3) Hypertension Current Visit: Yes Status: Acute Assessment and plan: Hold BP meds as patient is hypotensive and tachycardic and dehydrated Qualifiers: Hypertension type: essential hypertension Qualified Code(s): I10 - Essential (primary) hypertension (4) PAOLA (acute kidney injury) Current Visit: Yes Status: Acute Assessment and plan: Hydrate with IV fluids and monitor creatinine (5) Dehydration Current Visit: Yes Status: Acute Assessment and plan: IV fluids (6) DVT prophylaxis Current Visit: Yes Status: Acute Assessment and plan: Heparin sc - Time Spent With Patient Total time spent is greater than 50% in coordination of care (as documented) at patient's floor/unit and/or counseling patient:
[2018-02-15] MEDS: MORPHINE SUL Oral CONC 10 MG/0.5 ML ORAL.SYG SL PRN ×2 (17:14→23:05)
[2018-02-15] MEDS: *HR* Heparin 5,000 UNIT/ML VIAL SQ SCH (17:17)
[2018-02-15 19:33] LABS: BUN/Creatinine Ratio 10 (6-26); Blood Urea Nitrogen 8 mg/dL (6-20); Calcium 7.2 mg/dL (8.6-10.3); Carbon Dioxide 21 mEq/L (23-29); Chloride 111 mEq/L (98-107); Glucose 86 mg/dL (70-105); Osmolality,Calculated 284 (280-300); Potassium 4.5 mEq/L (3.5-5.1); Sodium 138 mEq/L (136-145); eGFR For Non-African Americans > 60 (> 60)
[2018-02-15] MEDS: Ondansetron 4 MG/2 ML VIAL IVP PRN (19:48)
[2018-02-15] MEDS: *HR* Promethazine 25 MG/ML VIAL IVP PRN (22:42)
[2018-02-16] MEDS: D5% in 0.45% NACL w KCl 20 MEQ/1,000 ML MLS IVC SCH ×3 (03:31→17:29)
[2018-02-16 03:40] LABS: Basophils % 0.7 %; Eosinophils # 0.1 K/mcL (0.0-0.6); Eosinophils % 1.3 %; Hematocrit 29.9 % (35.3-44.9); Hemoglobin 9.7 g/dL (11.5-15.4); Immature Granulocytes % 0.4 % (0-4); Lymphocytes # 1.9 K/mcL (0.6-4.6); Lymphocytes % 41.1 %; Mean Corpuscular HGB Conc 32.4 g/dL (31.6-35.5); Mean Corpuscular Volume 92.6 fL (83.0-100.0); Mean Platelet Volume 9.2 fL (9.4-12.4); Monocytes # 0.5 K/mcL (0.0-1.3); Monocytes % 11.2 %; Neutrophils # 2.1 K/mcL (1.6-8.9); Platelet Count 288 K/mcL (140-400); Red Blood Count 3.23 M/mcL (3.82-4.97); Red Cell Distribution Width 13.5 % (11.5-14.5); Segmented Neutrophils % 45.3 %
[2018-02-16 03:59] LABS: BUN/Creatinine Ratio 7 (6-26); Blood Urea Nitrogen 6 mg/dL (6-20); Calcium 7.5 mg/dL (8.6-10.3); Carbon Dioxide 19 mEq/L (23-29); Chloride 113 mEq/L (98-107); Glucose 127 mg/dL (70-105); Magnesium 1.9 mg/dL (1.6-2.6); Osmolality,Calculated 283 (280-300); Phosphorous 1.2 mg/dL (2.7-4.5); Potassium 3.8 mEq/L (3.5-5.1); Sodium 137 mEq/L (136-145); eGFR For Non-African Americans > 60 (> 60)
[2018-02-16] MEDS: *HR* Promethazine 25 MG/ML VIAL IVP PRN ×3 (05:15→23:30)
[2018-02-16] MEDS: *HR* Heparin 5,000 UNIT/ML VIAL SQ SCH (05:15)
[2018-02-16] MEDS ORDERED: Insulin DETEMIR 100 UNIT/ML X5UNITS SQ ONE (06:09)
[2018-02-16] MEDS: Insulin LISPRO 300 UNITS/3 ML VIAL SQ SCH ×4 (08:00→21:10)
[2018-02-16] MEDS: MORPHINE SUL Oral CONC 10 MG/0.5 ML ORAL.SYG SL PRN ×2 (08:05→16:07)
[2018-02-16] MEDS ORDERED: Lisinopril-HCTZ 20-12.5mg TABLET PO SCH (09:00)
[2018-02-16] MEDS: Ondansetron 4 MG/2 ML VIAL IVP PRN (11:32)
--- NOTE | 2018-02-16 11:36 | Internal Med Progress Note ---
Hospitalist Progress Note - Encounter Date of Encounter: 02/16/18 Time of Encounter: 11:00 - Exam Vitals: Temp Pulse Resp BP Pulse Ox 97.9 F 103 18 123/80 98 02/16/18 08:00 02/16/18 09:00 02/16/18 09:00 02/16/18 09:00 02/16/18 09:00 Exam: mild distress - Assessment and Plan (1) DKA (diabetic ketoacidoses) Current Visit: Yes Status: Acute Assessment and Plan: Came in with elevated blood sugar, elevated anion gap and elevated beta hydroxybutyric acid Will start on an insulin drip and titrate till anion gap closes. Plan to advance diet and transition to subcutaneous insulin once sugars are controlled (2) Diabetes mellitus type 1 Current Visit: Yes Status: Acute Assessment and Plan: Continue insulin and monitor fingersticks (3) Hypertension Current Visit: Yes Status: Acute Assessment and Plan: Hold BP meds as patient is hypotensive and tachycardic and dehydrated (4) PAOLA (acute kidney injury) Current Visit: Yes Status: Acute Assessment and Plan: Hydrate with IV fluids and monitor creatinine (5) Dehydration Current Visit: Yes Status: Acute Assessment and Plan: IV fluids (6) DVT prophylaxis Current Visit: Yes Status: Acute Assessment and Plan: Heparin sc - Time Spent with Patient Total time spent is greater than 50% in coordination of care (as documented) at patient's floor/unit and/or counseling patient: Internal Medicine: Result - Labs CBC & Chem 7: 02/16/18 03:22 02/16/18 03:22 Labs: Short CBC 02/15/18 02/16/18 Range/Units 13:04 03:22 WBC 6.7 4.6 (4.3-11.1) K/mcL Hgb 10.3 L 9.7 L (11.5-15.4) g/dL Hct 32.1 L 29.9 L (35.3-44.9) % Plt Count 267 288 (140-400) K/mcL Neutrophils # 5.0 2.1 (1.6-8.9) K/mcL BMP 02/15/18 02/15/18 02/16/18 12:20 19:11 03:22 Sodium 135 L 138 137 Potassium 4.6 4.5 3.8 Chloride 104 111 H 113 H Carbon Dioxide 8 L* 21 L 19 L BUN 12 8 6 Creatinine 1.23 H 0.81 0.84 Glucose 227 H 86 127 H Calcium 8.7 7.2 L 7.5 L Cardiac Enzymes 02/15/18 Range/Units 12:20 Troponin I < 0.03 (< 0.04) ng/mL Urine 02/15/18 Range/Units 11:47 Urine Color Red A (Yellow) Urine Clarity Cloudy A (Clear) Urine pH 5.5 (5.0-8.0) pH Units Ur Specific [place] 1.027 H (1.010-1.025) Urine Protein >=300 H (Neg-Trace) mg/dL Urine Glucose (UA) >=1000 H (Normal) mg/dL - Impressions Impressions Chest X-Ray 02/15/18 11:50 IMPRESSION: No acute cardiopulmonary disease. D/ / Regino Regalado MD / Regino Regalado MD Interpreting Provider: Regino Regalado MD Consult Discharge Plan - Plan Referrals: Josiah Lockhart MD [Primary Care Provider] - (1) DKA (diabetic ketoacidoses) Qualifiers: Diabetes mellitus type: type 1 Diabetes mellitus complication detail: without coma Qualified Code(s): E10.10 - Type 1 diabetes mellitus with ketoacidosis without coma (2) Diabetes mellitus type 1 Qualifiers: Qualified Code(s): E10.10 - Type 1 diabetes mellitus with ketoacidosis without coma (3) Hypertension Qualifiers: Hypertension type: essential hypertension Qualified Code(s): I10 - Essential (primary) hypertension
[2018-02-16] MEDS ORDERED: D5% in 0.45% NACL 1,000 ML IVC PRN (13:48)
[2018-02-16] MEDS ORDERED: Ondansetron 4 MG/2 ML VIAL IVP PRN (13:48)
[2018-02-16] MEDS ORDERED: Naloxone 0.4 MG/ML INJ IVP PRN (13:48)
[2018-02-16] MEDS ORDERED: Acetaminophen 325 MG TABLET PO PRN (13:48)
[2018-02-16] MEDS ORDERED: *HR* Dextrose 50 % in Water (Syg) 50 ML SYRINGE IVP PRN (13:48)
[2018-02-16] MEDS ORDERED: D5% in Water 1,000 ML IVC PRN (15:06)
[2018-02-16] MEDS ORDERED: Dextrose Gel 15 GM/37.5 ML TUBE PO PRN ×2 (15:06)
--- NOTE | 2018-02-16 16:02 | Electrocardiograph Report ---
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
[2018-02-16] MEDS ORDERED: Insulin LISPRO 300 UNITS/3 ML VIAL SQ SCH (21:00)
[2018-02-16] MEDS ORDERED: Insulin DETEMIR 100 UNIT/ML X5UNITS SQ SCH (21:00)
[2018-02-16] MEDS: Insulin DETEMIR 100 UNIT/ML X5UNITS SQ SCH (21:35)
[2018-02-17] MEDS: D5% in 0.45% NACL w KCl 20 MEQ/1,000 ML MLS IVC SCH ×5 (02:54→23:46)
[2018-02-17] MEDS: traMADol 50 MG TABLET PO PRN (03:00)
[2018-02-17] MEDS: MORPHINE SUL Oral CONC 10 MG/0.5 ML ORAL.SYG SL PRN ×3 (07:27→21:34)
[2018-02-17] MEDS: Insulin LISPRO 300 UNITS/3 ML VIAL SQ SCH ×4 (07:28→21:27)
[2018-02-17] MEDS: *HR* Promethazine 25 MG/ML VIAL IVP PRN ×3 (07:29→21:35)
--- NOTE | 2018-02-17 10:36 | Discharge Summary ---
Orders not resulted at time of discharge: Pending orders 02/16/18 23:44 Culture,Urine [RM] Stat Date of Encounter: 02/17/18 Time of Encounter: 10:30 - Discharge Diagnosis (1) DKA (diabetic ketoacidoses) Status: Acute Assessment and Plan: Came in with elevated blood sugar, elevated anion gap and elevated beta hydroxybutyric acid Will start on an insulin drip and titrate till anion gap closes. Diet advanced this am. Monitor sugars Qualifiers: Diabetes mellitus type: type 1 Diabetes mellitus complication detail: without coma Qualified Code(s): E10.10 - Type 1 diabetes mellitus with ketoacidosis without coma (2) Diabetes mellitus type 1 Status: Acute Qualifiers: Qualified Code(s): E10.10 - Type 1 diabetes mellitus with ketoacidosis without coma (3) Hypertension Status: Acute Qualifiers: Hypertension type: essential hypertension Qualified Code(s): I10 - Essential (primary) hypertension (4) PAOLA (acute kidney injury) Status: Acute (5) Dehydration Status: Acute (6) DVT prophylaxis Status: Acute Hospital course: Ms. Sierra is a 32 year old female - Time Spent with Patient Total time spent providing and/or coordinating discharge services: - Discharge Medications Home Medications: Sodium Bicarbonate 650 mg PO DAILY 03/09/17 [History] Promethazine [Phenergan] 25 mg PO BID PRN 12/10/17 [History] Insulin ASPART [Novolog Flexpen] 5 units SQ TIDWM #0 12/18/17 [Rx] Insulin Glargine,Hum.rec.anlog [Lantus Solostar] 10 unit SQ HS #0 12/18/17 [Rx] Allergies/Adverse Reactions: Allergy/AdvReac Type Severity Reaction Status Date / Time hydrocodone Allergy Hives Verified 02/15/18 12:37 Date of admission: 02/15/18 14:42 Primary care physician: Josiah Lockhart MD - Constitutional Vitals: Temp Pulse Resp BP Pulse Ox 98.1 F 104 17 131/90 97 02/17/18 07:28 02/17/18 07:28 02/17/18 07:28 02/17/18 07:28 02/17/18 07:28 - Patient Status Condition: Fair - Discharge Instructions Follow Up With: Josiah Lockhart MD [Primary Care Provider] -
[2018-02-17 11:32] LABS: BUN/Creatinine Ratio 3 (6-26); Blood Urea Nitrogen 2 mg/dL (6-20); Calcium 7.5 mg/dL (8.6-10.3); Carbon Dioxide 22 mEq/L (23-29); Chloride 111 mEq/L (98-107); Glucose 149 mg/dL (70-105); Osmolality,Calculated 289 (280-300); Potassium 4.6 mEq/L (3.5-5.1); Sodium 140 mEq/L (136-145); eGFR For Non-African Americans > 60 (> 60)
--- NOTE | 2018-02-17 15:20 | Internal Med Progress Note ---
Hospitalist Progress Note - Encounter Date of Encounter: 02/17/18 Time of Encounter: 15:00 - Exam Vitals: Temp Pulse Resp BP Pulse Ox 97.8 F 98 17 151/95 99 02/17/18 11:11 02/17/18 11:11 02/17/18 11:11 02/17/18 11:11 02/17/18 11:11 Exam: Gen - Awake, alert, oriented x 3, no acute distress HEENT - NCAT, PERRLA, EOMI, hearing grossly intact, oropharynx benign CV - RRR, normal S1 and S2, no M/R/G, no BLE edema Resp - Normal WOB, CTAB, no W/R/R GI - Soft, NT/ND, no masses, normal bowel sounds, Skin - Warm, dry, no rashes/lesions/ulcers Psych - Normal mood and affect, no depression or anxiety - Assessment and Plan (1) DKA (diabetic ketoacidoses) Current Visit: Yes Status: Acute Assessment and Plan: Came in with elevated blood sugar, elevated anion gap and elevated beta hydroxybutyric acid Anion gap has closed and diet advanced. Patient still has abdominal pain with nausea. Will monitor overnight Possible discharge in am (2) Diabetes mellitus type 1 Current Visit: Yes Status: Acute Assessment and Plan: Continue insulin and monitor fingersticks (3) Hypertension Current Visit: Yes Status: Acute Assessment and Plan: Hold BP meds as patient is hypotensive and tachycardic and dehydrated (4) PAOLA (acute kidney injury) Current Visit: Yes Status: Acute Assessment and Plan: Hydrate with IV fluids and monitor creatinine (5) Dehydration Current Visit: Yes Status: Acute Assessment and Plan: IV fluids (6) DVT prophylaxis Current Visit: Yes Status: Acute Assessment and Plan: Heparin sc - Time Spent with Patient Total time spent is greater than 50% in coordination of care (as documented) at patient's floor/unit and/or counseling patient: Internal Medicine: Result - Labs CBC & Chem 7: 02/16/18 03:22 02/17/18 10:53 Labs: BMP 02/17/18 10:53 Sodium 140 Potassium 4.6 Chloride 111 H Carbon Dioxide 22 L BUN 2 L Creatinine 0.63 Glucose 149 H Calcium 7.5 L Consult Discharge Plan - Plan Referrals: Josiah Lockhart MD [Primary Care Provider] - Prescriptions: Lisinopril [Zestril] 20 mg PO DAILY 30 Days #30 tablet (1) DKA (diabetic ketoacidoses) Qualifiers: Diabetes mellitus type: type 1 Diabetes mellitus complication detail: without coma Qualified Code(s): E10.10 - Type 1 diabetes mellitus with ketoacidosis without coma (2) Diabetes mellitus type 1 Qualifiers: Qualified Code(s): E10.10 - Type 1 diabetes mellitus with ketoacidosis without coma (3) Hypertension Qualifiers: Hypertension type: essential hypertension Qualified Code(s): I10 - Essential (primary) hypertension
[2018-02-17] MEDS: Lisinopril 20 MG TABLET PO SCH (17:29)
[2018-02-17] MEDS: Insulin DETEMIR 100 UNIT/ML X5UNITS SQ SCH (21:35)
[2018-02-18] MEDS: *HR* Promethazine 25 MG/ML VIAL IVP PRN ×3 (04:20→15:26)
[2018-02-18] MEDS: traMADol 50 MG TABLET PO PRN ×2 (04:21→10:04)
[2018-02-18] MEDS: D5% in 0.45% NACL w KCl 20 MEQ/1,000 ML MLS IVC SCH ×2 (07:09→15:27)
[2018-02-18] MEDS: Lisinopril 20 MG TABLET PO SCH (07:10)
[2018-02-18] MEDS: MORPHINE SUL Oral CONC 10 MG/0.5 ML ORAL.SYG SL PRN ×3 (07:15→15:25)
[2018-02-18] MEDS: Insulin LISPRO 300 UNITS/3 ML VIAL SQ SCH ×3 (07:52→15:56)
[2018-02-18] MEDS ORDERED: Isovue-370 500 ML INFUS..BTL IV ONE (10:54)
[2018-02-18 11:35] LABS: Basophils % 0.8 %; Eosinophils # 0.1 K/mcL (0.0-0.6); Eosinophils % 5.6 %; Hematocrit 30.7 % (35.3-44.9); Hemoglobin 9.6 g/dL (11.5-15.4); Immature Granulocytes % 0.4 % (0-4); Lymphocytes # 1.4 K/mcL (0.6-4.6); Lymphocytes % 56.5 %; Mean Corpuscular HGB Conc 31.3 g/dL (31.6-35.5); Mean Corpuscular Hemoglobin 29.4 pg (28.0-33.3); Mean Corpuscular Volume 93.9 fL (83.0-100.0); Mean Platelet Volume 9.4 fL (9.4-12.4); Monocytes # 0.3 K/mcL (0.0-1.3); Monocytes % 10.9 %; Platelet Count 246 K/mcL (140-400); Red Blood Count 3.27 M/mcL (3.82-4.97); Red Cell Distribution Width 13.8 % (11.5-14.5); Segmented Neutrophils % 25.8 %
[2018-02-18 11:37] LABS: Neutrophils # 0.7 K/mcL (1.6-8.9)
[2018-02-18 12:05] LABS: Platelet Estimate Normal (Normal)
[2018-02-18 12:06] LABS: Blood Urea Nitrogen < 2 mg/dL (6-20); Calcium 7.7 mg/dL (8.6-10.3); Carbon Dioxide 27 mEq/L (23-29); Chloride 112 mEq/L (98-107); Glucose 70 mg/dL (70-105); Potassium 4.2 mEq/L (3.5-5.1); Sodium 142 mEq/L (136-145); eGFR For Non-African Americans > 60 (> 60)
--- NOTE | 2018-02-18 14:47 | Internal Med Progress Note ---
Hospitalist Progress Note - Encounter Date of Encounter: 02/18/18 Time of Encounter: 14:00 - Exam Vitals: Temp Pulse Resp BP Pulse Ox 98.1 F 121 14 140/89 100 02/18/18 09:59 02/18/18 09:59 02/18/18 09:59 02/18/18 09:59 02/18/18 09:59 Exam: Gen - Awake, alert, oriented x 3, no acute distress HEENT - NCAT, PERRLA, EOMI, hearing grossly intact, oropharynx benign CV - RRR, normal S1 and S2, no M/R/G, no BLE edema Resp - Normal WOB, CTAB, no W/R/R GI - Soft, moderate abdominal pain Skin - Warm, dry, no rashes/lesions/ulcers Psych - Normal mood and affect, no depression or anxiety - Assessment and Plan (1) Ruptured ovarian cyst Current Visit: Yes Status: Acute Assessment and Plan: Pt continued to complain of abdominal pain despite resolution of DKA CT abdomen showed ruptured left ovarian cyst with moderate free fluid in the pelvis. PAtient is hemodynamically stable OBGYN consulted and appreciate recs (2) DKA (diabetic ketoacidoses) Current Visit: Yes Status: Acute Assessment and Plan: Came in with elevated blood sugar, elevated anion gap and elevated beta hydroxybutyric acid Anion gap has closed and diet advanced.Tolerating diet (3) Diabetes mellitus type 1 Current Visit: Yes Status: Acute Assessment and Plan: Continue insulin and monitor fingersticks (4) Hypertension Current Visit: Yes Status: Acute Assessment and Plan: Hold BP meds as patient is hypotensive and tachycardic and dehydrated (5) PAOLA (acute kidney injury) Current Visit: Yes Status: Acute Assessment and Plan: Hydrate with IV fluids and monitor creatinine (6) Dehydration Current Visit: Yes Status: Acute Assessment and Plan: IV fluids (7) UTI (urinary tract infection) Current Visit: Yes Status: Acute Assessment and Plan: Pt has burning on urination and CT abdomen shows findings suggestive urothelial enhancement conscerning for UTI Will start on ceftriaxone (8) DVT prophylaxis Current Visit: Yes Status: Acute Assessment and Plan: Heparin sc - Time Spent with Patient Total time spent is greater than 50% in coordination of care (as documented) at patient's floor/unit and/or counseling patient: Internal Medicine: Result - Labs CBC & Chem 7: 02/18/18 11:18 02/18/18 11:18 Labs: Short CBC 02/18/18 Range/Units 11:18 WBC 2.5 L (4.3-11.1) K/mcL Hgb 9.6 L (11.5-15.4) g/dL Hct 30.7 L (35.3-44.9) % Plt Count 246 (140-400) K/mcL Neutrophils # 0.7 L (1.6-8.9) K/mcL BMP 02/18/18 11:18 Sodium 142 Potassium 4.2 Chloride 112 H Carbon Dioxide 27 BUN < 2 L Creatinine 0.57 L Glucose 70 Calcium 7.7 L - Impressions Impressions Abdomen/Pelvis CT 02/18/18 13:30 IMPRESSION: Moderate free pelvic fluid has developed since the prior examination. There has been decreased size of a left ovarian cyst. Findings raise question of interval cyst rupture. Mild urothelial enhancement is seen of the renal pelves. Suggest correlation with urinalysis to exclude the possibility of infection. Hepatomegaly. Trace bilateral pleural effusions. D/ / Cale Cates MD / Cale Cates MD Interpreting Provider: Cael Cates MD Consult Discharge Plan - Plan Referrals: Josiah Lockhart MD [Primary Care Provider] - Prescriptions: Lisinopril [Zestril] 20 mg PO DAILY 30 Days #30 tablet (2) DKA (diabetic ketoacidoses) Qualifiers: Diabetes mellitus type: type 1 Diabetes mellitus complication detail: without coma Qualified Code(s): E10.10 - Type 1 diabetes mellitus with ketoacidosis without coma (3) Diabetes mellitus type 1 Qualifiers: Qualified Code(s): E10.10 - Type 1 diabetes mellitus with ketoacidosis without coma (4) Hypertension Qualifiers: Hypertension type: essential hypertension Qualified Code(s): I10 - Essential (primary) hypertension
[2018-02-18] MEDS ORDERED: cefTRIAXone 1,000 MG in Water for inj. (sterile) 20 ML 10 ML IVP SCH (15:00)
[2018-02-18 15:39] VITALS: BP 158/104
--- NOTE | 2018-02-18 15:46 | Event Note ---
Date of Encounter: 02/18/18 Time of Encounter: 15:00 32yo female with complaints of pelvic discomfort outside scope of current admission diagnosis with internal medicine. Hx of ovarian cyst per patient. Repeat TVUS performed during admission showing significant improvement in size of the R ovary with minimal free fluid in pelvis. After reviewing imaging and laboratory findings, recommendation for patient to be seen in the outpatient setting for follow up as there is no emergent interventions that should take place at this time. If this is a ruptured cyst, then the cyst will continue to decrease in size and the fluid re-absorbed. Should the patient begin to have heavy vaginal bleeding outside normalcy of her menses, and she becomes lethargic with si/sx of active blood loss with a distended abdomen, we recommend she returns for emergent BUSINESS CONSULTANT evaluation. Otherwise, the patients symptoms should ultimately resolve spontaneously and without complication(s). MD [facility]
--- NOTE | 2018-02-18 16:00 | Discharge Summary ---
Orders not resulted at time of discharge: Pending orders 02/19/18 04:00 Basic Metabolic Panel AM 0400 CBC [Complete Blood Count] [HEME] AM 0400 Magnesium AM 0400 Phosphorous AM 0400 02/20/18 04:00 Basic Metabolic Panel AM 0400 CBC [Complete Blood Count] [HEME] AM 0400 Magnesium AM 0400 Phosphorous AM 0400 02/21/18 04:00 Basic Metabolic Panel AM 0400 CBC [Complete Blood Count] [HEME] AM 0400 Magnesium AM 0400 Phosphorous AM 0400 02/22/18 04:00 Basic Metabolic Panel AM 0400 CBC [Complete Blood Count] [HEME] AM 0400 Magnesium AM 0400 Phosphorous AM 0400 02/23/18 04:00 Basic Metabolic Panel AM 0400 CBC [Complete Blood Count] [HEME] AM 0400 Magnesium AM 0400 Phosphorous AM 0400 02/24/18 04:00 Basic Metabolic Panel AM 0400 CBC [Complete Blood Count] [HEME] AM 0400 Magnesium AM 0400 Phosphorous AM 0400 Date of Encounter: 02/18/18 Time of Encounter: 16:00 - Discharge Diagnosis (1) Ruptured ovarian cyst Priority: Primary Status: Acute Assessment and Plan: 32 year old female with pmh of type 1 diabetes, hypertension, GERD presenting with complaints of abdominal pain, nausea and vomiting of 2 days duration. Patient has multiple admissions for DKA but she insists she is compliant with her insulin regimen. She complained of having a fruity breath yesterday afternoon and began to have nausea and vomiting last night. She began to have abdominal pain toda which she described as diffuse tenderness 8/10. She was brought to the ER by her due to her nausea and vomiting. She was assessed with DKA with an elevated anion gap. She was started on an insulin drip and was successfully transitioned to subcutaneous insulin and diet with anion gap closure. She continued to complain of abdominal pain despite resolution of DKA. A CT abdomen was done and showed ruptured left ovarian cyst with moderate free fluid in the pelvis. Patient is hemodynamically stable. OBGYN was consulted and determined there was no need for any acute surgical intervention since patient is hemodynamically stable and has no active bleeding. She has been counseled to follow up with them outpatient. Her home antihypertensive regimen was switched from lisinopril/HCTZ to just lisinopril on discharge. She was discharged in a stable condition (2) DKA (diabetic ketoacidoses) Priority: Primary Status: Acute Assessment and Plan: Came in with elevated blood sugar, elevated anion gap and elevated beta hydroxybutyric acid Anion gap has closed and diet advanced.Tolerating diet Qualifiers: Diabetes mellitus type: type 1 Diabetes mellitus complication detail: without coma Qualified Code(s): E10.10 - Type 1 diabetes mellitus with ketoacidosis without coma (3) Diabetes mellitus type 1 Priority: Primary Status: Acute Qualifiers: Qualified Code(s): E10.10 - Type 1 diabetes mellitus with ketoacidosis without coma (4) Hypertension Priority: Primary Status: Acute Qualifiers: Hypertension type: essential hypertension Qualified Code(s): I10 - Essential (primary) hypertension (5) PAOLA (acute kidney injury) Priority: Primary Status: Acute (6) Dehydration Priority: Primary Status: Acute (7) UTI (urinary tract infection) Priority: Primary Status: Acute Qualifiers: Qualified Code(s): N39.0 - Urinary tract infection, site not specified; R31.9 - Hematuria, unspecified (8) DVT prophylaxis Priority: Primary Status: Acute Hospital course: Ms. Sierra is a 32 year old female - Time Spent with Patient Total time spent providing and/or coordinating discharge services: - Discharge Medications Prescriptions: Cefdinir [Omnicef] 300 mg PO BID 3 Days #6 capsule Lisinopril [Zestril] 20 mg PO DAILY 30 Days #30 tablet Oxycodone HCl/Acetaminophen [Percocet 5-325 mg Tablet] 1 each PO Q6H PRN 5 Days #30 tablet PRN Reason: Abdominal Distention Home Medications: Sodium Bicarbonate 650 mg PO DAILY 03/09/17 [History] Promethazine [Phenergan] 25 mg PO BID PRN 12/10/17 [History] Insulin ASPART [Novolog Flexpen] 5 units SQ TIDWM #0 12/18/17 [Rx] Insulin Glargine,Hum.rec.anlog [Lantus Solostar] 10 unit SQ HS #0 12/18/17 [Rx] Lisinopril [Zestril] 20 mg PO DAILY 30 Days #30 tablet 02/17/18 [Rx] Cefdinir [Omnicef] 300 mg PO BID 3 Days #6 capsule 02/18/18 [Rx] Oxycodone HCl/Acetaminophen [Percocet 5-325 mg Tablet] 1 each PO Q6H PRN 5 Days #30 tablet 02/18/18 [Rx] Allergies/Adverse Reactions: Allergy/AdvReac Type Severity Reaction Status Date / Time hydrocodone Allergy Hives Verified 02/15/18 12:37 Date of admission: 02/15/18 14:42 Primary care physician: Josiah Lockhart MD Consults: 02/18/18 14:43 Consult to MANAGER GRAPHIC [CONS] Stat Consulting Provider: LENS ASSISTANT Coila Reason for Consult: ovarian cyst rupture Call Completed: Yes - Constitutional Vitals: Temp Pulse Resp BP Pulse Ox 97.7 F 113 16 158/104 99 02/18/18 15:37 02/18/18 15:37 02/18/18 15:37 02/18/18 15:37 02/18/18 15:37 Exam: Gen - Awake, alert, oriented x 3, no acute distress HEENT - NCAT, PERRLA, EOMI, hearing grossly intact, oropharynx benign CV - RRR, normal S1 and S2, no M/R/G, no BLE edema Resp - Normal WOB, CTAB, no W/R/R GI - Soft, moderate abdominal pain Skin - Warm, dry, no rashes/lesions/ulcers Psych - Normal mood and affect, no depression or anxiety - Patient Status Disposition: Home, Self-Care Condition: Good - Discharge Instructions Follow Up With: Josiah Lockhart MD [Primary Care Provider] -
== END 2018-02-18 16:20 | disposition home or self-care (01) ==
LOC: EMEROOARM 11:24 → ICNU 11:24 → SUATTDRO 14:42 → ICNU 15:54 → 3ANU 02-16 13:53
PROVIDERS: ADMIT Internal Medicine Nephrology; ATTEND Student in an Organized Health Care Education/Training Program

== ENCOUNTER 2019-04-02 01:49 | Inpatient (IN) ==
[2019-04-02] MEDS ORDERED: *HR* Dextrose 50 % in Water (Syg) 50 ML SYRINGE IVP PRN ×2 (02:20→07:20)
[2019-04-02] MEDS ORDERED: Insulin Human Regular 100 UNIT in 0.9 % Sodium Chloride 100 ML IVC SCH (02:30)
[2019-04-02 02:47] LABS: ABG Base Excess 0 mEq/L (-2 to 3); ABG HCO3 24 mEq/L (21-27); ABG Oxygen Saturation 97 % (95-98); ABG PCO2 38 mmHg (35-45); ABG PH 7.41 pH Units (7.32-7.45); ABG PO2 89 mmHg (85-104); ABG TCO2 25 mEq/L (20-26)
[2019-04-02 03:40] LABS: Basophils # 0.1 K/mcL (0.0-0.2); Basophils % 0.8 %; Eosinophils # 0.1 K/mcL (0.0-0.6); Hemoglobin 12.4 g/dL (11.5-15.4); Immature Granulocytes % 0.5 % (0-4); Lymphocytes # 1.7 K/mcL (0.6-4.6); Lymphocytes % 26.1 %; Mean Corpuscular HGB Conc 35.4 g/dL (31.6-35.5); Mean Corpuscular Hemoglobin 29.8 pg (28.0-33.3); Mean Corpuscular Volume 84.1 fL (83.0-100.0); Mean Platelet Volume 10.7 fL (9.4-12.4); Monocytes # 0.6 K/mcL (0.0-1.3); Monocytes % 8.9 %; Platelet Count 303 K/mcL (140-400); Red Blood Count 4.16 M/mcL (3.82-4.97); Red Cell Distribution Width 11.9 % (11.5-14.5); Segmented Neutrophils % 61.7 %; White Blood Count 6.4 K/mcL (4.3-11.1)
[2019-04-02] MEDS ORDERED: Promethazine 25 MG in 0.9 % Sodium Chloride 50 ML IVPB ONE (03:56)
[2019-04-02 03:59] LABS: Alanine Aminotransferase 12 Units/L (7-52); Albumin 3.6 g/dL (3.5-5.7); Albumin/Globulin Ratio 1.3 (1.1-2.2); Alkaline Phosphatase 115 Units/L (34-104); Aspartate Amino Transferase 13 Units/L (13-39); BUN/Creatinine Ratio 19 (6-26); Bilirubin,Total 0.3 mg/dL (0.3-1.0); Blood Urea Nitrogen 29 mg/dL (6-20); Calcium 8.9 mg/dL (8.6-10.3); Carbon Dioxide 24 mEq/L (23-29); Chloride 101 mEq/L (98-107); Globulin 2.8 g/dL (2.4-3.5); Glucose 250 mg/dL (70-105); Magnesium 2.2 mg/dL (1.6-2.6); Osmolality,Calculated 292 (280-300); Phosphorous 3.9 mg/dL (2.7-4.5); Potassium 5.1 mEq/L (3.5-5.1); Sodium 134 mEq/L (136-145); Total Protein 6.4 g/dL (6.4-8.9); Troponin I < 0.03 ng/mL (< 0.04); eGFR For African Americans 49 (> 60); eGFR For Non-African Americans 40 (> 60)
[2019-04-02] MEDS: 0.9 % Sodium Chloride 1,000 ML IVC SCH ×3 (04:23→13:51)
[2019-04-02] MEDS: Nitroglycerin 0.4 MG TAB.SUBL SL SCH ×3 (05:32→11:35)
[2019-04-02] MEDS ORDERED: Naloxone 0.4 MG/ML INJ IVP PRN (07:19)
[2019-04-02] MEDS ORDERED: D5% in Water 1,000 ML IVC PRN (07:20)
[2019-04-02] MEDS ORDERED: Dextrose Gel 15 GM/37.5 ML TUBE PO PRN ×2 (07:20)
[2019-04-02] MEDS ORDERED: SODIUM BICARBONATE 650 MG PO PRN (07:21)
[2019-04-02] MEDS ORDERED: Insulin LISPRO 300 UNITS/3 ML VIAL SQ SCH ×2 (11:30→12:00)
[2019-04-02] MEDS ORDERED: Insulin DETEMIR 100 UNIT/ML X5UNITS SQ ONE (11:39)
[2019-04-02] MEDS: Insulin LISPRO 300 UNITS/3 ML VIAL SQ SCH ×2 (12:02→16:57)
[2019-04-02] MEDS: Pantoprazole 40 MG VIAL IVP SCH (12:03)
[2019-04-02] MEDS: *HR* Promethazine 25 MG/ML VIAL IVP PRN ×2 (13:50→20:52)
[2019-04-02] MEDS ORDERED: *HR* Labetalol 20 MG/4 ML SYRINGE IVP PRN (14:21)
[2019-04-02] MEDS: Ondansetron 4 MG/2 ML VIAL IVP PRN (19:41)
[2019-04-02] MEDS ORDERED: Insulin DETEMIR 100 UNIT/ML X5UNITS SQ SCH (21:00)
[2019-04-03] MEDS: *HR* Promethazine 25 MG/ML VIAL IVP PRN ×3 (04:14→21:38)
[2019-04-03] MEDS: Acetaminophen IV 500 MG/50 ML INFUS..BTL IVPB ONE (04:14)
[2019-04-03] MEDS ORDERED: Insulin Human Regular 5 UNIT in 0.9 % Sodium Chloride 10 ML IV ONE (04:35)
[2019-04-03] MEDS ORDERED: Insulin DETEMIR 100 UNIT/ML X5UNITS SQ ONE (05:15)
[2019-04-03 06:08] LABS: Hematocrit 33.6 % (35.3-44.9); Hemoglobin 11.3 g/dL (11.5-15.4); Mean Corpuscular HGB Conc 33.6 g/dL (31.6-35.5); Mean Corpuscular Hemoglobin 29.8 pg (28.0-33.3); Mean Corpuscular Volume 88.7 fL (83.0-100.0); Mean Platelet Volume 10.6 fL (9.4-12.4); Platelet Count 264 K/mcL (140-400); Red Blood Count 3.79 M/mcL (3.82-4.97); Red Cell Distribution Width 12.1 % (11.5-14.5); White Blood Count 5.1 K/mcL (4.3-11.1)
[2019-04-03 06:32] LABS: Calcium 7.5 mg/dL (8.6-10.3); Potassium 4.2 mEq/L (3.5-5.1)
[2019-04-03] MEDS ORDERED: Acetaminophen 325 MG TABLET PO ONE (08:04)
[2019-04-03] MEDS: Pantoprazole 40 MG VIAL IVP SCH (10:18)
[2019-04-03] MEDS: Insulin LISPRO 300 UNITS/3 ML VIAL SQ SCH ×3 (10:20→17:36)
[2019-04-03] MEDS ORDERED: Morphine Sulfate 2 MG/ML SYRINGE IVP ONE (10:21)
[2019-04-03] MEDS ORDERED: 0.9 % Sodium Chloride 1,000 ML ONE (13:10)
[2019-04-03] MEDS: 0.9 % Sodium Chloride 1,000 ML IVC SCH (13:28)
[2019-04-03] MEDS: Ondansetron 4 MG/2 ML VIAL IVP PRN (16:51)
[2019-04-03 18:17] LABS: Bilirubin,Urine Small (Negative); Blood,Urine Small (Negative); Clarity,Urine Cloudy (Clear); Color,Urine Yellow (Yellow); Glucose,Urine (UA) 500 mg/dL (Normal); Ketones,Urine Negative (Negative); Leukocyte Esterase,Urine Moderate (Negative); Nitrite,Urine Positive (Negative); PH,Urine 5.5 pH Units (5.0-8.0); Protein,Urine >=300 mg/dL (Neg-Trace); Specific Gravity,Urine 1.026 (1.010-1.025); Urobilinogen,Urine Normal (Normal)
[2019-04-03 18:20] LABS: Bacteria,Urine Many per hpf (None-Few); Squamous Epithelial Cell,Urine Many per lpf (None-Few); WBC,Urine TNTC per hpf (0-3)
[2019-04-03 18:51] LABS: Hyaline Casts,Urine Few per lpf (None-Few)
[2019-04-03] MEDS ORDERED: Insulin LISPRO 300 UNITS/3 ML VIAL SQ SCH (21:00)
[2019-04-03] MEDS ORDERED: Insulin DETEMIR 100 UNIT/ML X5UNITS SQ SCH (21:00)
[2019-04-03] MEDS ORDERED: Melatonin 3 MG TABLET PO ONE (22:12)
[2019-04-04] MEDS: Acetaminophen IV 500 MG/50 ML INFUS..BTL IVPB ONE (00:01)
[2019-04-04] MEDS ORDERED: *HR* OxyCODONE Immed Rel 5 MG TABLET PO ONE (00:33)
[2019-04-04] MEDS: Insulin LISPRO 300 UNITS/3 ML VIAL SQ SCH ×3 (07:38→16:19)
[2019-04-04] MEDS: Pantoprazole 40 MG VIAL IVP SCH (07:55)
[2019-04-04] MEDS: *HR* Promethazine 25 MG/ML VIAL IVP PRN ×3 (07:55→21:15)
[2019-04-04] MEDS: cefTRIAXone 1,000 MG in Water for inj. (sterile) 10 ML IVP SCH (07:56)
[2019-04-04 10:15] LABS: Calcium 7.6 mg/dL (8.6-10.3); Potassium 4.1 mEq/L (3.5-5.1)
[2019-04-04] MEDS ORDERED: Acetaminophen 325 MG TABLET PO PRN (11:19)
[2019-04-04] MEDS: Ondansetron 4 MG/2 ML VIAL IVP PRN (11:52)
[2019-04-04] MEDS: *HR* OxyCODONE Immed Rel 5 MG TABLET PO PRN ×2 (12:25→18:20)
[2019-04-04] MEDS ORDERED: Insulin DETEMIR 100 UNIT/ML X5UNITS SQ SCH (21:00)
[2019-04-05] MEDS: *HR* OxyCODONE Immed Rel 5 MG TABLET PO PRN ×4 (00:42→20:25)
[2019-04-05 01:34] LABS: Basophils % 0.2 %; Eosinophils # 0.1 K/mcL (0.0-0.6); Eosinophils % 1.5 %; Hematocrit 28.7 % (35.3-44.9); Hemoglobin 9.6 g/dL (11.5-15.4); Immature Granulocytes % 0.4 % (0-4); Lymphocytes # 1.2 K/mcL (0.6-4.6); Mean Corpuscular HGB Conc 33.4 g/dL (31.6-35.5); Mean Corpuscular Volume 89.7 fL (83.0-100.0); Mean Platelet Volume 10.8 fL (9.4-12.4); Monocytes # 0.5 K/mcL (0.0-1.3); Monocytes % 8.3 %; Neutrophils # 3.7 K/mcL (1.6-8.9); Platelet Count 228 K/mcL (140-400); Red Cell Distribution Width 12.4 % (11.5-14.5); Segmented Neutrophils % 67.6 %; White Blood Count 5.4 K/mcL (4.3-11.1)
[2019-04-05 01:41] LABS: INR 0.9; Prothrombin Time 10.4 Seconds (9.4-12.1)
[2019-04-05 01:41] LABS: VBG HCO3 24 mEq/L (21-27); VBG PCO2 51 mmHg (41-51); VBG PH 7.28 pH Units (7.32-7.42); VBG PO2 72 mmHg (25-50)
[2019-04-05 01:56] LABS: Albumin 2.7 g/dL (3.5-5.7); Albumin/Globulin Ratio 1.2 (1.1-2.2); Bilirubin,Direct 0.1 mg/dL (0.0-0.2); Bilirubin,Indirect 0.2 mg/dL (0.0-1.0); Bilirubin,Total 0.3 mg/dL (0.3-1.0); Globulin 2.3 g/dL (2.4-3.5)
[2019-04-05 02:35] LABS: Immature Reticulocyte % 11.1 % (11.0-38.0); Retculocyte # 0.09 M/mcL (0.05-0.10); Reticulocyte % 2.9 % (1.6-2.8)
[2019-04-05 03:02] LABS: Calcium 7.1 mg/dL (8.6-10.3); Potassium 4.8 mEq/L (3.5-5.1)
[2019-04-05 03:04] LABS: Basophils % 0.6 %; Eosinophils # 0.1 K/mcL (0.0-0.6); Eosinophils % 1.9 %; Hematocrit 27.4 % (35.3-44.9); Hemoglobin 9.3 g/dL (11.5-15.4); Immature Granulocytes % 0.6 % (0-4); Lymphocytes # 1.3 K/mcL (0.6-4.6); Lymphocytes % 25.2 %; Mean Corpuscular HGB Conc 33.9 g/dL (31.6-35.5); Mean Corpuscular Hemoglobin 30.4 pg (28.0-33.3); Mean Corpuscular Volume 89.5 fL (83.0-100.0); Mean Platelet Volume 10.5 fL (9.4-12.4); Monocytes # 0.5 K/mcL (0.0-1.3); Monocytes % 8.9 %; Neutrophils # 3.2 K/mcL (1.6-8.9); Platelet Count 210 K/mcL (140-400); Red Blood Count 3.06 M/mcL (3.82-4.97); Red Cell Distribution Width 12.3 % (11.5-14.5); Segmented Neutrophils % 62.8 %; White Blood Count 5.2 K/mcL (4.3-11.1)
[2019-04-05 03:09] LABS: Bilirubin,Urine Negative (Negative); Blood,Urine Small (Negative); Clarity,Urine Clear (Clear); Color,Urine Yellow (Yellow); Glucose,Urine (UA) >=1000 mg/dL (Normal); Ketones,Urine Negative (Negative); Leukocyte Esterase,Urine Negative (Negative); Nitrite,Urine Negative (Negative); PH,Urine 6.5 pH Units (5.0-8.0); Protein,Urine 100 mg/dL (Neg-Trace); Specific Gravity,Urine 1.017 (1.010-1.025); Urobilinogen,Urine Normal (Normal)
[2019-04-05 03:10] LABS: Bacteria,Urine None Seen per hpf (None-Few); Hyaline Casts,Urine None Seen per lpf (None-Few); Squamous Epithelial Cell,Urine Moderate per lpf (None-Few); WBC,Urine 0-3 per hpf (0-3)
[2019-04-05] MEDS: *HR* Promethazine 25 MG/ML VIAL IVP PRN ×3 (04:00→17:55)
[2019-04-05 04:33] LABS: INR 0.9; Prothrombin Time 10.5 Seconds (9.4-12.1)
[2019-04-05 04:34] LABS: Potassium 4.2 mEq/L (3.5-5.1)
[2019-04-05 05:07] LABS: Amphetamine Screen,Urine Negative ng/mL (Cutoff=1000); Barbiturate Screen,Urine Negative ng/mL (Cutoff=200); Benzodiazepines Screen,Urine Negative ng/mL (Cutoff=200); Cannabinoid Screen,Urine Negative ng/mL (Cutoff = 50); Cocaine Screen,Urine Negative ng/mL (Cutoff= 300); Opiate Screen,Urine Negative ng/mL (Cutoff=300); Phencyclidine Screen,Urine Negative ng/mL (Cutoff=25)
[2019-04-05 05:08] LABS: % Iron Saturation 10 % (15-50); Ethanol < 10 mg/dL (Less than 10); Iron 21 mcg/dL (50-170); Transferrin 153 mg/dL (203-362)
[2019-04-05 05:12] LABS: Ferritin 116 ng/mL (10-120)
[2019-04-05 05:45] LABS: Hepatitis B Surface Antigen Nonreactive (Nonreactive)
[2019-04-05 06:15] LABS: Hepatitis B Core IgM Nonreactive (Nonreactive)
[2019-04-05 06:16] LABS: Hepatitis A Antibody IgM Nonreactive (Nonreactive); Hepatitis C Virus Antibody Nonreactive (Nonreactive)
[2019-04-05] MEDS: Ondansetron 4 MG/2 ML VIAL IVP PRN (07:58)
[2019-04-05] MEDS: cefTRIAXone 1,000 MG in Water for inj. (sterile) 10 ML IVP SCH (07:59)
[2019-04-05] MEDS: Pantoprazole 40 MG VIAL IVP SCH (08:00)
[2019-04-05] MEDS: Insulin LISPRO 300 UNITS/3 ML VIAL SQ SCH ×4 (08:01→21:52)
[2019-04-05] MEDS ORDERED: Insulin LISPRO 300 UNITS/3 ML VIAL SQ SCH ×2 (11:30→21:00)
[2019-04-05] MEDS: Sodium Ferric Gluconat/Sucrose 125 MG in 0.9 % Sodium Chloride 100 ML IVPB SCH (12:59)
[2019-04-05 18:33] LABS: Hematocrit 27.2 % (35.3-44.9); Hemoglobin 8.8 g/dL (11.5-15.4)
[2019-04-05] MEDS ORDERED: Insulin DETEMIR 100 UNIT/ML X5UNITS SQ SCH (21:00)
[2019-04-06] MEDS: *HR* Promethazine 25 MG/ML VIAL IVP PRN ×3 (01:43→17:36)
[2019-04-06] MEDS: *HR* OxyCODONE Immed Rel 5 MG TABLET PO PRN ×3 (02:26→17:36)
[2019-04-06] MEDS ORDERED: Insulin Human Regular 5 UNIT in 0.9 % Sodium Chloride 10 ML IV ONE (03:39)
[2019-04-06] MEDS ORDERED: *HR* Metoprolol 5 MG/5 ML VIAL IVP ONE (04:30)
[2019-04-06 06:10] LABS: Basophils % 0.4 %; Eosinophils # 0.1 K/mcL (0.0-0.6); Eosinophils % 2.5 %; Hematocrit 28.8 % (35.3-44.9); Hemoglobin 9.7 g/dL (11.5-15.4); Immature Granulocytes % 0.6 % (0-4); Immature Platelets 4.2 % (1.1-6.1); Lymphocytes # 1.7 K/mcL (0.6-4.6); Mean Corpuscular HGB Conc 33.7 g/dL (31.6-35.5); Mean Corpuscular Hemoglobin 29.9 pg (28.0-33.3); Mean Corpuscular Volume 88.9 fL (83.0-100.0); Mean Platelet Volume 11.7 fL (9.4-12.4); Monocytes # 0.4 K/mcL (0.0-1.3); Monocytes % 6.9 %; Platelet Count 193 K/mcL (140-400); Red Blood Count 3.24 M/mcL (3.82-4.97); Red Cell Distribution Width 12.3 % (11.5-14.5); Segmented Neutrophils % 57.6 %; White Blood Count 5.2 K/mcL (4.3-11.1)
[2019-04-06 06:20] LABS: Alanine Aminotransferase 118 Units/L (7-52); Albumin 2.8 g/dL (3.5-5.7); Albumin/Globulin Ratio 1.3 (1.1-2.2); Alkaline Phosphatase 273 Units/L (34-104); Aspartate Amino Transferase 129 Units/L (13-39); BUN/Creatinine Ratio 13 (6-26); Bilirubin,Total 0.2 mg/dL (0.3-1.0); Blood Urea Nitrogen 15 mg/dL (6-20); Calcium 7.2 mg/dL (8.6-10.3); Carbon Dioxide 16 mEq/L (23-29); Chloride 109 mEq/L (98-107); Globulin 2.2 g/dL (2.4-3.5); Glucose 352 mg/dL (70-105); Osmolality,Calculated 299 (280-300); Potassium 4.8 mEq/L (3.5-5.1); Sodium 137 mEq/L (136-145); eGFR For African Americans > 60 (> 60); eGFR For Non-African Americans 54 (> 60)
[2019-04-06] MEDS: cefTRIAXone 1,000 MG in Water for inj. (sterile) 10 ML IVP SCH (09:40)
[2019-04-06] MEDS: Insulin LISPRO 300 UNITS/3 ML VIAL SQ SCH ×3 (09:43→17:36)
[2019-04-06] MEDS: Ondansetron 4 MG/2 ML VIAL IVP PRN (15:03)
[2019-04-06] MEDS ORDERED: 0.9 % Sodium Chloride 1,000 ML IVC SCH (15:45)
[2019-04-06] MEDS: Insulin DETEMIR 100 UNIT/ML X5UNITS SQ SCH (21:31)
[2019-04-07] MEDS: Insulin LISPRO 300 UNITS/3 ML VIAL SQ SCH ×4 (00:10→21:14)
[2019-04-07] MEDS ORDERED: Insulin LISPRO 300 UNITS/3 ML VIAL SQ ONE (01:00)
[2019-04-07] MEDS: *HR* Promethazine 25 MG/ML VIAL IVP PRN ×4 (01:40→21:49)
[2019-04-07] MEDS: *HR* OxyCODONE Immed Rel 5 MG TABLET PO PRN ×4 (01:40→21:43)
[2019-04-07 02:56] LABS: Basophils % 0.4 %; Eosinophils # 0.1 K/mcL (0.0-0.6); Eosinophils % 1.3 %; Hematocrit 25.2 % (35.3-44.9); Hemoglobin 8.3 g/dL (11.5-15.4); Immature Granulocytes % 0.4 % (0-4); Lymphocytes # 1.7 K/mcL (0.6-4.6); Lymphocytes % 21.8 %; Mean Corpuscular HGB Conc 32.9 g/dL (31.6-35.5); Mean Corpuscular Hemoglobin 30.1 pg (28.0-33.3); Mean Corpuscular Volume 91.3 fL (83.0-100.0); Mean Platelet Volume 10.6 fL (9.4-12.4); Monocytes # 0.5 K/mcL (0.0-1.3); Monocytes % 5.9 %; Neutrophils # 5.3 K/mcL (1.6-8.9); Platelet Count 257 K/mcL (140-400); Red Blood Count 2.76 M/mcL (3.82-4.97); Red Cell Distribution Width 12.5 % (11.5-14.5); Segmented Neutrophils % 70.2 %; White Blood Count 7.6 K/mcL (4.3-11.1)
[2019-04-07 03:17] LABS: Albumin 2.4 g/dL (3.5-5.7); Albumin/Globulin Ratio 1.1 (1.1-2.2); Bilirubin,Total 0.2 mg/dL (0.3-1.0); Calcium 7.4 mg/dL (8.6-10.3); Globulin 2.1 g/dL (2.4-3.5); Potassium 4.2 mEq/L (3.5-5.1); Total Protein 4.5 g/dL (6.4-8.9)
[2019-04-07] MEDS: levoFLOXacin 750 MG TABLET PO SCH (08:26)
[2019-04-07] MEDS: Ondansetron 4 MG/2 ML VIAL IVP PRN (13:51)
[2019-04-07] MEDS: Ringers Solution, Lactated 1,000 ML IVC SCH (13:52)
[2019-04-07] MEDS ORDERED: Insulin LISPRO 300 UNITS/3 ML VIAL SQ SCH (21:00)
[2019-04-07] MEDS: Insulin DETEMIR 100 UNIT/ML X5UNITS SQ SCH (21:45)
[2019-04-08] MEDS: *HR* OxyCODONE Immed Rel 5 MG TABLET PO PRN ×4 (03:57→23:50)
[2019-04-08] MEDS: *HR* Promethazine 25 MG/ML VIAL IVP PRN ×4 (04:17→23:50)
[2019-04-08] MEDS: Ringers Solution, Lactated 1,000 ML IVC SCH (04:17)
[2019-04-08 05:40] LABS: Basophils % 0.6 %; Eosinophils # 0.2 K/mcL (0.0-0.6); Eosinophils % 3.3 %; Hematocrit 26.7 % (35.3-44.9); Hemoglobin 8.7 g/dL (11.5-15.4); Immature Granulocytes % 0.6 % (0-4); Lymphocytes # 1.9 K/mcL (0.6-4.6); Lymphocytes % 35.4 %; Mean Corpuscular HGB Conc 32.6 g/dL (31.6-35.5); Mean Corpuscular Hemoglobin 29.9 pg (28.0-33.3); Mean Corpuscular Volume 91.8 fL (83.0-100.0); Mean Platelet Volume 9.6 fL (9.4-12.4); Monocytes # 0.4 K/mcL (0.0-1.3); Monocytes % 6.5 %; Neutrophils # 2.9 K/mcL (1.6-8.9); Platelet Count 275 K/mcL (140-400); Red Blood Count 2.91 M/mcL (3.82-4.97); Red Cell Distribution Width 12.4 % (11.5-14.5); Segmented Neutrophils % 53.6 %; White Blood Count 5.4 K/mcL (4.3-11.1)
[2019-04-08 05:54] LABS: BUN/Creatinine Ratio 9 (6-26); Blood Urea Nitrogen 11 mg/dL (6-20); Calcium 8.2 mg/dL (8.6-10.3); Carbon Dioxide 22 mEq/L (23-29); Chloride 112 mEq/L (98-107); Glucose 81 mg/dL (70-105); Osmolality,Calculated 288 (280-300); Potassium 3.7 mEq/L (3.5-5.1); Sodium 140 mEq/L (136-145); eGFR For African Americans > 60 (> 60); eGFR For Non-African Americans 51 (> 60)
[2019-04-08] MEDS: Ondansetron 4 MG/2 ML VIAL IVP PRN (07:42)
[2019-04-08] MEDS: Sodium Ferric Gluconat/Sucrose 125 MG in 0.9 % Sodium Chloride 100 ML IVPB SCH (07:45)
[2019-04-08] MEDS: Insulin LISPRO 300 UNITS/3 ML VIAL SQ SCH ×4 (07:48→23:37)
[2019-04-08] MEDS: levoFLOXacin 750 MG TABLET PO SCH (07:48)
[2019-04-08 09:44] LABS: HCV Quant Interpretation NOT DETECTED (Not Detected); HCV Quant Log NOT DETECTED log IU/mL
[2019-04-08 09:48] LABS: Immunoglobulin A (CELIAC) 263 mg/dL (68-408); Immunoglobulin G Subclass 1 219 mg/dL (240-1118); Immunoglobulin G Subclass 2 245 mg/dL (124-549); Immunoglobulin G Subclass 3 57 mg/dL (21-134); Immunoglobulin G Subclass 4 1 mg/dL (1-123)
[2019-04-08 13:25] LABS: Serine Protease-3 Antibody 0 AU/mL (0-19)
[2019-04-08] MEDS: Insulin DETEMIR 100 UNIT/ML X5UNITS SQ SCH (21:19)
[2019-04-09] MEDS: Insulin LISPRO 300 UNITS/3 ML VIAL SQ SCH ×4 (05:54→21:15)
[2019-04-09 06:51] LABS: BUN/Creatinine Ratio 8 (6-26); Blood Urea Nitrogen 9 mg/dL (6-20); Calcium 8.1 mg/dL (8.6-10.3); Carbon Dioxide 25 mEq/L (23-29); Chloride 108 mEq/L (98-107); Glucose 75 mg/dL (70-105); Osmolality,Calculated 297 (280-300); Potassium 3.9 mEq/L (3.5-5.1); Sodium 145 mEq/L (136-145); eGFR For African Americans > 60 (> 60); eGFR For Non-African Americans 52 (> 60)
[2019-04-09] MEDS: *HR* Promethazine 25 MG/ML VIAL IVP PRN ×3 (06:56→21:14)
[2019-04-09] MEDS: *HR* OxyCODONE Immed Rel 5 MG TABLET PO PRN (06:56)
[2019-04-09] MEDS: levoFLOXacin 750 MG TABLET PO SCH (07:34)
[2019-04-09] MEDS ORDERED: Ringers Solution, Lactated 1,000 ML IVC SCH (09:15)
[2019-04-09] MEDS: Acetaminophen 325 MG TABLET PO SCH ×2 (09:58→16:23)
[2019-04-09 10:46] LABS: Hematocrit 24.8 % (35.3-44.9); Hemoglobin 8.2 g/dL (11.5-15.4)
[2019-04-09 11:01] LABS: Alanine Aminotransferase 34 Units/L (7-52); Albumin 2.4 g/dL (3.5-5.7); Albumin/Globulin Ratio 1.1 (1.1-2.2); Alkaline Phosphatase 165 Units/L (34-104); Aspartate Amino Transferase 12 Units/L (13-39); BUN/Creatinine Ratio 8 (6-26); Bilirubin,Total 0.3 mg/dL (0.3-1.0); Blood Urea Nitrogen 9 mg/dL (6-20); Calcium 8.1 mg/dL (8.6-10.3); Carbon Dioxide 24 mEq/L (23-29); Chloride 111 mEq/L (98-107); Globulin 2.2 g/dL (2.4-3.5); Glucose 68 mg/dL (70-105); Osmolality,Calculated 289 (280-300); Potassium 3.9 mEq/L (3.5-5.1); Sodium 141 mEq/L (136-145); Total Protein 4.6 g/dL (6.4-8.9); eGFR For African Americans > 60 (> 60); eGFR For Non-African Americans 55 (> 60)
[2019-04-09 12:32] LABS: F-Actin (sm muscle) Ab IgG 8 Units (0-19); Saccharomyces cerevisiae IgA 27.6 Units (0.0-24.9); Tissue Transglutaminase IgA 0 U/mL (0-3)
[2019-04-09 12:33] LABS: ANA IgG by ELISA NONE DETECTED (None Detected)
[2019-04-09] MEDS: Insulin DETEMIR 100 UNIT/ML X5UNITS SQ SCH (21:15)
[2019-04-09] MEDS: Ketorolac 15 MG/ML VIAL IVP PRN (21:54)
[2019-04-09] MEDS ORDERED: Chloraseptic Spray 177 ML BOTTLE MM PRN (21:59)
[2019-04-09] MEDS: Melatonin 3 MG TABLET PO PRN (22:45)
[2019-04-09 23:57] LABS: Alpha 2 Globulin (PEP) 0.82 g/dL (0.48-1.05); Beta Globulin (PEP) 0.68 g/dL (0.48-1.10)
[2019-04-10] MEDS: Acetaminophen 325 MG TABLET PO SCH ×2 (01:19→07:58)
[2019-04-10] MEDS: *HR* Promethazine 25 MG/ML VIAL IVP PRN ×3 (04:18→21:32)
[2019-04-10] MEDS: Insulin LISPRO 300 UNITS/3 ML VIAL SQ SCH ×4 (07:57→21:00)
[2019-04-10] MEDS: Sodium Ferric Gluconat/Sucrose 125 MG in 0.9 % Sodium Chloride 100 ML IVPB SCH (07:58)
[2019-04-10 10:11] LABS: IFE Reflexed IFE Done; Immunoglobulin A 245 mg/dL (68-408); Immunoglobulin G 524 mg/dL (768-1632); Immunoglobulin M 67 mg/dL (35-263)
[2019-04-10] MEDS ORDERED: Isovue-370 500 ML BOTTLE IVP ONE (10:56)
[2019-04-10] MEDS ORDERED: Lactulose Oral Soln 20 GM/30 ML UDC PO ONE (16:59)
[2019-04-10] MEDS ORDERED: Furosemide 20 MG/2 ML VIAL IVP ONE (17:00)
[2019-04-10] MEDS: Ondansetron 4 MG/2 ML VIAL IVP PRN (17:44)
[2019-04-10] MEDS: Melatonin 3 MG TABLET PO PRN (20:57)
[2019-04-10] MEDS: Insulin DETEMIR 100 UNIT/ML X5UNITS SQ SCH (20:58)
[2019-04-11 00:17] LABS: Chlamydia Trachomatis DNA Ur NOT DETECTED (Not Detect)
[2019-04-11] MEDS: *HR* Promethazine 25 MG/ML VIAL IVP PRN ×3 (05:21→22:12)
[2019-04-11] MEDS: Insulin LISPRO 300 UNITS/3 ML VIAL SQ SCH ×4 (08:31→22:04)
[2019-04-11] MEDS: Ondansetron 4 MG/2 ML VIAL IVP PRN (09:59)
[2019-04-11] MEDS: Ketorolac 15 MG/ML VIAL IVP PRN ×2 (09:59→22:00)
[2019-04-11] MEDS: Sennosides 8.6 MG TABLET PO SCH ×2 (10:00→22:03)
[2019-04-11 21:26] LABS: A1A SZ Specimen WHOLE BLOOD; Alpha-1-Antitrypsin S Allele HETEROZYGOUS; Alpha-1-Antitrypsin Z Allele NEGATIVE
[2019-04-11] MEDS: Insulin DETEMIR 100 UNIT/ML X5UNITS SQ SCH (22:03)
[2019-04-11] MEDS: Melatonin 3 MG TABLET PO PRN (22:08)
[2019-04-12] MEDS: *HR* Promethazine 25 MG/ML VIAL IVP PRN ×3 (04:23→20:20)
[2019-04-12] MEDS: Metoprolol XL (24 HR) Succ 25 MG TAB.ER.24H PO SCH (07:39)
[2019-04-12] MEDS: Sennosides 8.6 MG TABLET PO SCH ×2 (07:39→20:07)
[2019-04-12] MEDS: Insulin LISPRO 300 UNITS/3 ML VIAL SQ SCH ×4 (07:39→20:07)
[2019-04-12 08:35] LABS: Alpha-1-Antitrypsin 113 mg/dL (90-200)
[2019-04-12 10:11] LABS: Basophils % 0.6 %; Eosinophils # 0.2 K/mcL (0.0-0.6); Eosinophils % 3.7 %; Hematocrit 24.1 % (35.3-44.9); Hemoglobin 7.8 g/dL (11.5-15.4); Immature Granulocytes % 0.6 % (0-4); Lymphocytes % 32.2 %; Mean Corpuscular HGB Conc 32.4 g/dL (31.6-35.5); Mean Corpuscular Hemoglobin 30.4 pg (28.0-33.3); Mean Corpuscular Volume 93.8 fL (83.0-100.0); Mean Platelet Volume 9.8 fL (9.4-12.4); Monocytes # 0.6 K/mcL (0.0-1.3); Monocytes % 10.7 %; Neutrophils # 2.8 K/mcL (1.6-8.9); Platelet Count 328 K/mcL (140-400); Red Blood Count 2.57 M/mcL (3.82-4.97); Red Cell Distribution Width 13.2 % (11.5-14.5); Segmented Neutrophils % 52.2 %; White Blood Count 5.4 K/mcL (4.3-11.1)
[2019-04-12 10:12] LABS: Lymphocytes # 1.7 K/mcL (0.6-4.6)
[2019-04-12 10:28] LABS: Albumin 2.6 g/dL (3.5-5.7); Albumin/Globulin Ratio 1.2 (1.1-2.2); Bilirubin,Total 0.2 mg/dL (0.3-1.0); Globulin 2.2 g/dL (2.4-3.5); Potassium 3.8 mEq/L (3.5-5.1); Total Protein 4.8 g/dL (6.4-8.9)
[2019-04-12 10:29] LABS: Magnesium 1.7 mg/dL (1.6-2.6); Phosphorous 2.8 mg/dL (2.7-4.5)
[2019-04-12 10:40] LABS: Platelet Estimate Normal (Normal)
[2019-04-12] MEDS: Sodium Ferric Gluconat/Sucrose 125 MG in 0.9 % Sodium Chloride 100 ML IVPB SCH (11:07)
[2019-04-12] MEDS: Furosemide 20 MG/2 ML VIAL IVP SCH ×2 (11:17→20:07)
[2019-04-12] MEDS: Albumin 25% 25gram/100mL 25 GM/100 ML IV.SOLN IVPB SCH ×2 (11:19→15:56)
[2019-04-12 14:54] LABS: % Iron Saturation 54 % (15-50); Iron 114 mcg/dL (50-170); Transferrin 151 mg/dL (203-362)
[2019-04-12 15:08] LABS: Ferritin 265 ng/mL (10-120)
[2019-04-12 15:16] LABS: Folate 4.8 ng/mL (3.0-16.0)
[2019-04-12 15:29] LABS: Bilirubin,Urine Negative (Negative); Blood,Urine Moderate (Negative); Clarity,Urine Turbid (Clear); Color,Urine Yellow (Yellow); Glucose,Urine (UA) Normal (Normal); Ketones,Urine Negative (Negative); Leukocyte Esterase,Urine Negative (Negative); Nitrite,Urine Negative (Negative); Protein,Urine 100 mg/dL (Neg-Trace); Specific Gravity,Urine 1.008 (1.010-1.025); Urobilinogen,Urine Normal (Normal)
[2019-04-12 15:31] LABS: Bacteria,Urine None Seen per hpf (None-Few); Hyaline Casts,Urine None Seen per lpf (None-Few); RBC,Urine 0-3 per hpf (0-3); Squamous Epithelial Cell,Urine Moderate per lpf (None-Few); WBC,Urine 0-3 per hpf (0-3)
[2019-04-12 15:31] LABS: Prothrombin Time 11.7 Seconds (9.4-12.1)
[2019-04-12] MEDS: Ondansetron 4 MG/2 ML VIAL IVP PRN (16:12)
[2019-04-12] MEDS ORDERED: *HR* Heparin 5,000 UNIT/ML VIAL IVP ONE (16:30)
[2019-04-12] MEDS ORDERED: *HR* Heparin 5,000 UNIT/ML VIAL IVP PRN (16:30)
[2019-04-12] MEDS ORDERED: SODIUM CHLORIDE/NAHCO3/KCL/PEG 4,000 ML SOLN.RECON PO ONE (17:00)
[2019-04-12 17:12] LABS: Hematocrit 23.3 % (35.3-44.9); Hemoglobin 7.8 g/dL (11.5-15.4); Mean Corpuscular HGB Conc 33.5 g/dL (31.6-35.5); Mean Corpuscular Hemoglobin 30.6 pg (28.0-33.3); Mean Corpuscular Volume 91.4 fL (83.0-100.0); Mean Platelet Volume 9.8 fL (9.4-12.4); Platelet Count 291 K/mcL (140-400); Red Blood Count 2.55 M/mcL (3.82-4.97); White Blood Count 6.4 K/mcL (4.3-11.1)
[2019-04-12] MEDS: Heparin 25,000 UNIT/250 ML D5W 25,000 UNIT/250 ML IV.SOLN IVC SCH (17:12)
[2019-04-12 17:19] LABS: Heparin anti-factor XA UFH 0.01 IU/mL (0.30-0.70)
[2019-04-12 17:20] LABS: Prothrombin Time 11.5 Seconds (9.4-12.1)
[2019-04-12] MEDS: Insulin DETEMIR 100 UNIT/ML X5UNITS SQ SCH (20:07)
[2019-04-12] MEDS ORDERED: *HR* OxyCODONE Immed Rel 5 MG TABLET PO ONE (21:51)
[2019-04-12 23:21] LABS: Hematocrit 26.1 % (35.3-44.9); Hemoglobin 8.6 g/dL (11.5-15.4)
[2019-04-12 23:45] LABS: Calcium 8.7 mg/dL (8.6-10.3); Potassium 3.8 mEq/L (3.5-5.1)
[2019-04-13] MEDS: Albumin 25% 25gram/100mL 25 GM/100 ML IV.SOLN IVPB SCH (01:02)
[2019-04-13] MEDS: Melatonin 3 MG TABLET PO PRN (01:04)
[2019-04-13] MEDS: *HR* Promethazine 25 MG/ML VIAL IVP PRN ×3 (05:18→18:39)
[2019-04-13 05:29] LABS: Hematocrit 22.5 % (35.3-44.9); Hemoglobin 7.4 g/dL (11.5-15.4); Mean Corpuscular HGB Conc 32.9 g/dL (31.6-35.5); Mean Corpuscular Hemoglobin 29.8 pg (28.0-33.3); Mean Corpuscular Volume 90.7 fL (83.0-100.0); Mean Platelet Volume 9.8 fL (9.4-12.4); Platelet Count 302 K/mcL (140-400); Red Blood Count 2.48 M/mcL (3.82-4.97); Red Cell Distribution Width 13.1 % (11.5-14.5); White Blood Count 7.2 K/mcL (4.3-11.1)
[2019-04-13] MEDS: Metoprolol XL (24 HR) Succ 25 MG TAB.ER.24H PO SCH (08:20)
[2019-04-13] MEDS: Furosemide 20 MG/2 ML VIAL IVP SCH (08:20)
[2019-04-13] MEDS: Sennosides 8.6 MG TABLET PO SCH ×2 (08:21→20:46)
[2019-04-13] MEDS: Insulin LISPRO 300 UNITS/3 ML VIAL SQ SCH ×4 (08:34→21:02)
[2019-04-13] MEDS ORDERED: Acetaminophen IV 1,000 MG/100 ML INFUS..BTL ONE (10:00)
[2019-04-13] MEDS ORDERED: Acetaminophen IV 1,000 MG/100 ML INFUS..BTL IVPB ONE (10:00)
[2019-04-13] MEDS ORDERED: Propofol 500 MG/50 ML INFUS..BTL ONE (10:40)
[2019-04-13] MEDS ORDERED: Lidocaine -MPF 2% 2 ML VIAL ONE (10:40)
[2019-04-13] MEDS ORDERED: Isovue-370 500 ML BOTTLE IVP ONE (11:32)
[2019-04-13] MEDS: Piperacillin/Tazobactam 3.375 GM in 0.9 % Sodium Chloride Mini Bag 100 ML IVPB SCH ×2 (11:59→18:46)
[2019-04-13] MEDS: *HR* OxyCODONE/APAP 5/325 TABLET PO PRN ×2 (12:28→18:39)
[2019-04-13] MEDS: Heparin 25,000 UNIT/250 ML D5W 25,000 UNIT/250 ML IV.SOLN IVC SCH (12:30)
[2019-04-13 15:11] LABS: Calcium 8.4 mg/dL (8.6-10.3)
[2019-04-13] MEDS ORDERED: 0.9 % Sodium Chloride 250 ML ONE (18:06)
[2019-04-13] MEDS: Insulin DETEMIR 100 UNIT/ML X5UNITS SQ SCH (20:46)
[2019-04-14] MEDS: *HR* OxyCODONE/APAP 5/325 TABLET PO PRN ×4 (00:58→21:27)
[2019-04-14] MEDS: *HR* Promethazine 25 MG/ML VIAL IVP PRN ×4 (00:58→21:27)
[2019-04-14] MEDS: Piperacillin/Tazobactam 3.375 GM in 0.9 % Sodium Chloride Mini Bag 100 ML IVPB SCH ×3 (00:58→14:37)
[2019-04-14 04:11] LABS: Basophils % 0.6 %; Eosinophils # 0.2 K/mcL (0.0-0.6); Eosinophils % 3.7 %; Hematocrit 25.5 % (35.3-44.9); Hemoglobin 8.1 g/dL (11.5-15.4); Immature Granulocytes % 0.5 % (0-4); Lymphocytes # 1.8 K/mcL (0.6-4.6); Lymphocytes % 28.3 %; Mean Corpuscular HGB Conc 31.8 g/dL (31.6-35.5); Mean Corpuscular Hemoglobin 29.7 pg (28.0-33.3); Mean Corpuscular Volume 93.4 fL (83.0-100.0); Mean Platelet Volume 9.9 fL (9.4-12.4); Monocytes # 0.6 K/mcL (0.0-1.3); Monocytes % 9.2 %; Neutrophils # 3.6 K/mcL (1.6-8.9); Platelet Count 257 K/mcL (140-400); Red Blood Count 2.73 M/mcL (3.82-4.97); Red Cell Distribution Width 13.8 % (11.5-14.5); Segmented Neutrophils % 57.7 %; White Blood Count 6.3 K/mcL (4.3-11.1)
[2019-04-14 04:27] LABS: Magnesium 1.7 mg/dL (1.6-2.6); Potassium 3.9 mEq/L (3.5-5.1)
[2019-04-14] MEDS: Metoprolol XL (24 HR) Succ 25 MG TAB.ER.24H PO SCH (07:54)
[2019-04-14] MEDS: Sennosides 8.6 MG TABLET PO SCH ×2 (07:55→21:27)
[2019-04-14] MEDS: Insulin LISPRO 300 UNITS/3 ML VIAL SQ SCH ×4 (08:11→21:39)
[2019-04-14] MEDS: Heparin 25,000 UNIT/250 ML D5W 25,000 UNIT/250 ML IV.SOLN IVC SCH (19:47)
[2019-04-14] MEDS: *HR* Heparin 5,000 UNIT/ML VIAL IVP PRN (19:53)
[2019-04-14] MEDS: Melatonin 3 MG TABLET PO PRN (21:27)
[2019-04-14] MEDS: Insulin DETEMIR 100 UNIT/ML X5UNITS SQ SCH (21:38)
[2019-04-15] MEDS: Piperacillin/Tazobactam 3.375 GM in 0.9 % Sodium Chloride Mini Bag 100 ML IVPB SCH ×3 (01:20→16:13)
[2019-04-15 03:21] LABS: Basophils # 0.1 K/mcL (0.0-0.2); Basophils % 0.8 %; Eosinophils # 0.3 K/mcL (0.0-0.6); Hematocrit 26.4 % (35.3-44.9); Hemoglobin 8.4 g/dL (11.5-15.4); Immature Granulocytes % 0.8 % (0-4); Lymphocytes # 1.8 K/mcL (0.6-4.6); Lymphocytes % 28.5 %; Mean Corpuscular HGB Conc 31.8 g/dL (31.6-35.5); Mean Corpuscular Hemoglobin 29.4 pg (28.0-33.3); Mean Corpuscular Volume 92.3 fL (83.0-100.0); Mean Platelet Volume 10.3 fL (9.4-12.4); Monocytes # 0.5 K/mcL (0.0-1.3); Monocytes % 7.6 %; Neutrophils # 3.8 K/mcL (1.6-8.9); Platelet Count 317 K/mcL (140-400); Red Blood Count 2.86 M/mcL (3.82-4.97); Red Cell Distribution Width 13.3 % (11.5-14.5); Segmented Neutrophils % 58.3 %; White Blood Count 6.4 K/mcL (4.3-11.1)
[2019-04-15 03:38] LABS: Calcium 8.2 mg/dL (8.6-10.3); Magnesium 1.9 mg/dL (1.6-2.6); Phosphorous 3.2 mg/dL (2.7-4.5); Potassium 4.1 mEq/L (3.5-5.1)
[2019-04-15] MEDS: *HR* Heparin 5,000 UNIT/ML VIAL IVP PRN (03:39)
[2019-04-15] MEDS: *HR* Promethazine 25 MG/ML VIAL IVP PRN ×3 (04:00→17:25)
[2019-04-15] MEDS: *HR* OxyCODONE/APAP 5/325 TABLET PO PRN ×3 (04:00→17:25)
[2019-04-15 04:06] LABS: Creatinine,Urine 142 mg/dL
[2019-04-15 04:07] LABS: Microalbumin,Urine > 1350 mg/L; Protein/Creatinine Ratio,Urine 4.12 mg/mg (0.00-0.20)
[2019-04-15] MEDS: Insulin LISPRO 300 UNITS/3 ML VIAL SQ SCH ×4 (06:20→21:32)
[2019-04-15] MEDS: Sennosides 8.6 MG TABLET PO SCH ×2 (08:38→21:31)
[2019-04-15] MEDS: Sodium Ferric Gluconat/Sucrose 125 MG in 0.9 % Sodium Chloride 100 ML IVPB SCH (08:38)
[2019-04-15] MEDS: Metoprolol XL (24 HR) Succ 25 MG TAB.ER.24H PO SCH (08:39)
[2019-04-15] MEDS: Apixaban 5 MG TABLET PO SCH ×2 (08:39→21:31)
[2019-04-15] MEDS: Insulin DETEMIR 100 UNIT/ML X5UNITS SQ SCH (21:32)
[2019-04-15] MEDS: Melatonin 3 MG TABLET PO PRN (21:42)
[2019-04-16] MEDS ORDERED: Insulin Human Regular 10 UNIT in 0.9 % Sodium Chloride 10 ML IV ONE (00:08)
[2019-04-16] MEDS: Piperacillin/Tazobactam 3.375 GM in 0.9 % Sodium Chloride Mini Bag 100 ML IVPB SCH (00:21)
[2019-04-16] MEDS: *HR* Promethazine 25 MG/ML VIAL IVP PRN ×2 (00:21→06:18)
[2019-04-16] MEDS: *HR* OxyCODONE/APAP 5/325 TABLET PO PRN ×2 (00:22→06:18)
[2019-04-16 06:41] LABS: Basophils # 0.1 K/mcL (0.0-0.2); Eosinophils # 0.2 K/mcL (0.0-0.6); Eosinophils % 3.9 %; Hematocrit 26.6 % (35.3-44.9); Hemoglobin 8.3 g/dL (11.5-15.4); Immature Granulocytes % 0.8 % (0-4); Lymphocytes # 1.9 K/mcL (0.6-4.6); Mean Corpuscular HGB Conc 31.2 g/dL (31.6-35.5); Mean Corpuscular Hemoglobin 30.2 pg (28.0-33.3); Mean Corpuscular Volume 96.7 fL (83.0-100.0); Mean Platelet Volume 9.7 fL (9.4-12.4); Monocytes # 0.4 K/mcL (0.0-1.3); Monocytes % 8.2 %; Neutrophils # 2.6 K/mcL (1.6-8.9); Platelet Count 296 K/mcL (140-400); Red Blood Count 2.75 M/mcL (3.82-4.97); Red Cell Distribution Width 13.2 % (11.5-14.5); Segmented Neutrophils % 50.1 %; White Blood Count 5.1 K/mcL (4.3-11.1)
[2019-04-16 06:58] LABS: Calcium 8.4 mg/dL (8.6-10.3); Magnesium 1.9 mg/dL (1.6-2.6); Phosphorous 3.8 mg/dL (2.7-4.5)
[2019-04-16 10:27] VITALS: BP 169/65
== END 2019-04-16 11:59 | disposition home or self-care (01) | DRG 469 ==
LOC: EMEROOARM 01:49 → CDU 01:49 → SUATTDRO 08:31 → CDU 11:09 → 3ANU 04-03 01:14 → SUATTDRO 04-05 14:34
PROVIDERS: ADMIT Internal Medicine; ATTEND Internal Medicine

== ENCOUNTER 2019-12-08 18:20 | Inpatient (IN) ==
[2019-12-08 19:58] LABS: Basophils % 0.2 %; Eosinophils % 0.1 %; Hematocrit 34.3 % (35.3-44.9); Hemoglobin 10.9 g/dL (11.5-15.4); Immature Granulocytes % 0.6 % (0-4); Lymphocytes # 0.8 K/mcL (0.6-4.6); Lymphocytes % 3.8 %; Mean Corpuscular HGB Conc 31.8 g/dL (31.6-35.5); Mean Corpuscular Hemoglobin 28.6 pg (28.0-33.3); Mean Platelet Volume 9.9 fL (9.4-12.4); Monocytes # 0.8 K/mcL (0.0-1.3); Monocytes % 3.8 %; Neutrophils # 18.2 K/mcL (1.6-8.9); Platelet Count 372 K/mcL (140-400); Red Blood Count 3.81 M/mcL (3.82-4.97); Red Cell Distribution Width 12.4 % (11.5-14.5); Segmented Neutrophils % 91.5 %; White Blood Count 19.9 K/mcL (4.3-11.1)
[2019-12-08 20:19] LABS: Alanine Aminotransferase 16 Units/L (7-52); Albumin 3.1 g/dL (3.5-5.7); Albumin/Globulin Ratio 1.5 (1.1-2.2); Alkaline Phosphatase 77 Units/L (34-104); Aspartate Amino Transferase 23 Units/L (13-39); BUN/Creatinine Ratio 25 (6-26); Bilirubin,Total 0.4 mg/dL (0.3-1.0); Blood Urea Nitrogen 33 mg/dL (6-20); Calcium 8.5 mg/dL (8.6-10.3); Carbon Dioxide 22 mEq/L (23-29); Chloride 107 mEq/L (98-107); Globulin 2.1 g/dL (2.4-3.5); Glucose 383 mg/dL (70-105); Magnesium 1.9 mg/dL (1.6-2.6); Osmolality,Calculated 305 (280-300); Potassium 4.2 mEq/L (3.5-5.1); Sodium 136 mEq/L (136-145); Total Protein 5.2 g/dL (6.4-8.9); Troponin I < 0.03 ng/mL (< 0.04); eGFR For African Americans 56 (> 60); eGFR For Non-African Americans 46 (> 60)
[2019-12-08] MEDS ORDERED: Azithromycin 500 MG in 0.9 % Sodium Chloride 250 ML IVPB ONE (20:27)
[2019-12-08] MEDS ORDERED: cefTRIAXone 1,000 MG in Water for inj. (sterile) 10 ML IVP ONE (20:27)
[2019-12-08 20:39] LABS: Bacteria,Urine Few per hpf (None-Few); Bilirubin,Urine Negative (Negative); Blood,Urine Moderate (Negative); Clarity,Urine Turbid (Clear); Color,Urine Yellow (Yellow); Glucose,Urine (UA) >=1000 mg/dL (Normal); Ketones,Urine Negative (Negative); Leukocyte Esterase,Urine Moderate (Negative); Mucus,Urine Few per lpf (None-Few); Nitrite,Urine Negative (Negative); Protein,Urine >=300 mg/dL (Neg-Trace); Specific Gravity,Urine 1.014 (1.010-1.025); Squamous Epithelial Cell,Urine Few per hpf (None-Few); Transitional Epi Cells,Urine Few per hpf (None-Few); Urobilinogen,Urine Normal (Normal); WBC,Urine 50-100 per hpf (0-3)
[2019-12-08] MEDS ORDERED: Naloxone 0.4 MG/ML INJ IVP PRN (20:53)
[2019-12-08] MEDS ORDERED: Ondansetron 4 MG/2 ML VIAL IVP ONE (20:57)
[2019-12-08 21:00] LABS: Estimated Average Glucose 209 mg/dl
[2019-12-08 21:13] LABS: Amphetamine Screen,Urine Positive ng/mL (Cutoff=1000); Barbiturate Screen,Urine Negative ng/mL (Cutoff=200); Benzodiazepines Screen,Urine Negative ng/mL (Cutoff=200); Cannabinoid Screen,Urine Negative ng/mL (Cutoff = 50); Cocaine Screen,Urine Negative ng/mL (Cutoff= 300); Opiate Screen,Urine Negative ng/mL (Cutoff=300); Phencyclidine Screen,Urine Negative ng/mL (Cutoff=25)
[2019-12-08] MEDS ORDERED: Acetaminophen 325 MG TABLET PO PRN (22:26)
[2019-12-08] MEDS ORDERED: D5% in Water 1,000 ML IVC PRN (22:38)
[2019-12-08] MEDS ORDERED: Dextrose Gel 15 GM/37.5 ML TUBE PO PRN ×2 (22:38)
[2019-12-08] MEDS ORDERED: *HR* Dextrose 50 % in Water (Vial) 50 ML VIAL IVP PRN (22:38)
[2019-12-08] MEDS: 0.9 % Sodium Chloride 1,000 ML IVC SCH (23:02)
[2019-12-08] MEDS: Insulin LISPRO 300 UNITS/3 ML VIAL SQ SCH (23:03)
[2019-12-09 04:11] LABS: Basophils % 0.2 %; Eosinophils % 0.1 %; Hematocrit 31.7 % (35.3-44.9); Hemoglobin 10.4 g/dL (11.5-15.4); Immature Granulocytes % 0.4 % (0-4); Lymphocytes # 1.2 K/mcL (0.6-4.6); Mean Corpuscular HGB Conc 32.8 g/dL (31.6-35.5); Mean Corpuscular Hemoglobin 29.5 pg (28.0-33.3); Mean Corpuscular Volume 90.1 fL (83.0-100.0); Mean Platelet Volume 10.6 fL (9.4-12.4); Monocytes # 0.8 K/mcL (0.0-1.3); Monocytes % 4.6 %; Neutrophils # 14.8 K/mcL (1.6-8.9); Platelet Count 341 K/mcL (140-400); Red Blood Count 3.52 M/mcL (3.82-4.97); Red Cell Distribution Width 12.7 % (11.5-14.5); Segmented Neutrophils % 87.7 %; White Blood Count 16.9 K/mcL (4.3-11.1)
[2019-12-09 04:29] LABS: Calcium 7.9 mg/dL (8.6-10.3); Magnesium 1.9 mg/dL (1.6-2.6); Phosphorous 3.7 mg/dL (2.7-4.5)
[2019-12-09] MEDS: cefTRIAXone 2,000 MG in Water for inj. (sterile) 20 ML IVP SCH (05:15)
[2019-12-09] MEDS ORDERED: Doxycycline 100 MG in 0.9 % Sodium Chloride Mini Bag 100 ML IVPB SCH (07:32)
[2019-12-09] MEDS: Insulin LISPRO 300 UNITS/3 ML VIAL SQ SCH ×3 (08:43→16:20)
[2019-12-09] MEDS: Doxycycline 100 MG CAPSULE PO SCH ×2 (08:43→20:25)
[2019-12-09] MEDS: 0.9 % Sodium Chloride 1,000 ML IVC SCH (08:44)
[2019-12-09] MEDS ORDERED: *HR* Promethazine 25 MG/ML VIAL IVP ONE (09:01)
[2019-12-09] MEDS: Ondansetron 4 MG/2 ML VIAL IVP PRN (16:51)
[2019-12-09] MEDS ORDERED: Azithromycin 500 MG in 0.9 % Sodium Chloride 250 ML IVPB SCH (18:00)
[2019-12-09] MEDS ORDERED: Insulin DETEMIR 100 UNIT/ML X5UNITS SQ SCH (21:00)
[2019-12-09] MEDS ORDERED: Insulin LISPRO 300 UNITS/3 ML VIAL SQ SCH (21:00)
[2019-12-10] MEDS: Ondansetron 4 MG/2 ML VIAL IVP PRN ×3 (01:08→18:18)
[2019-12-10] MEDS: cefTRIAXone 2,000 MG in Water for inj. (sterile) 20 ML IVP SCH (04:54)
[2019-12-10 05:59] LABS: Basophils # 0.1 K/mcL (0.0-0.2); Basophils % 0.6 %; Eosinophils # 0.1 K/mcL (0.0-0.6); Eosinophils % 1.3 %; Hematocrit 29.4 % (35.3-44.9); Hemoglobin 9.5 g/dL (11.5-15.4); Immature Granulocytes % 0.3 % (0-4); Lymphocytes # 2.5 K/mcL (0.6-4.6); Mean Corpuscular HGB Conc 32.3 g/dL (31.6-35.5); Mean Corpuscular Hemoglobin 29.6 pg (28.0-33.3); Mean Corpuscular Volume 91.6 fL (83.0-100.0); Mean Platelet Volume 10.3 fL (9.4-12.4); Monocytes # 0.5 K/mcL (0.0-1.3); Neutrophils # 6.7 K/mcL (1.6-8.9); Platelet Count 288 K/mcL (140-400); Red Blood Count 3.21 M/mcL (3.82-4.97); Red Cell Distribution Width 12.7 % (11.5-14.5); Segmented Neutrophils % 67.8 %; White Blood Count 9.8 K/mcL (4.3-11.1)
[2019-12-10 06:10] LABS: Albumin 2.7 g/dL (3.5-5.7); Albumin/Globulin Ratio 1.2 (1.1-2.2); Bilirubin,Total 0.2 mg/dL (0.3-1.0); Calcium 8.2 mg/dL (8.6-10.3); Globulin 2.2 g/dL (2.4-3.5); Magnesium 1.7 mg/dL (1.6-2.6); Total Protein 4.9 g/dL (6.4-8.9)
[2019-12-10] MEDS: Insulin LISPRO 300 UNITS/3 ML VIAL SQ SCH ×3 (07:45→16:37)
[2019-12-10] MEDS: Doxycycline 100 MG CAPSULE PO SCH ×2 (07:45→19:55)
[2019-12-10] MEDS: Ringers Solution, Lactated 1,000 ML IVC SCH ×2 (07:57→19:55)
[2019-12-10] MEDS ORDERED: Perflutren Lipid Microsphere 1.3 ML in 0.9 % Sodium Chloride 8.7 ML IVP PRN (09:34)
[2019-12-10] MEDS ORDERED: Insulin LISPRO 300 UNITS/3 ML VIAL SQ ONE (16:35)
[2019-12-10] MEDS ORDERED: *HR* Promethazine 25 MG/ML VIAL IVP ONE (19:30)
[2019-12-10] MEDS ORDERED: Insulin DETEMIR 100 UNIT/ML X5UNITS SQ SCH (21:00)
[2019-12-11 02:31] LABS: Basophils # 0.1 K/mcL (0.0-0.2); Basophils % 0.5 %; Eosinophils # 0.2 K/mcL (0.0-0.6); Eosinophils % 2.1 %; Hematocrit 31.1 % (35.3-44.9); Hemoglobin 10.2 g/dL (11.5-15.4); Immature Granulocytes % 0.4 % (0-4); Lymphocytes # 2.3 K/mcL (0.6-4.6); Mean Corpuscular HGB Conc 32.8 g/dL (31.6-35.5); Mean Corpuscular Hemoglobin 29.1 pg (28.0-33.3); Mean Corpuscular Volume 88.6 fL (83.0-100.0); Mean Platelet Volume 10.6 fL (9.4-12.4); Monocytes # 0.4 K/mcL (0.0-1.3); Monocytes % 4.5 %; Neutrophils # 6.6 K/mcL (1.6-8.9); Platelet Count 308 K/mcL (140-400); Red Blood Count 3.51 M/mcL (3.82-4.97); Red Cell Distribution Width 12.5 % (11.5-14.5); Segmented Neutrophils % 68.5 %; White Blood Count 9.7 K/mcL (4.3-11.1)
[2019-12-11 02:53] LABS: Calcium 8.4 mg/dL (8.6-10.3); Potassium 4.1 mEq/L (3.5-5.1)
[2019-12-11] MEDS: cefTRIAXone 2,000 MG in Water for inj. (sterile) 20 ML IVP SCH (05:22)
[2019-12-11] MEDS: Doxycycline 100 MG CAPSULE PO SCH (09:31)
[2019-12-11] MEDS: Insulin LISPRO 300 UNITS/3 ML VIAL SQ SCH ×2 (09:32→11:30)
[2019-12-11] MEDS: Ringers Solution, Lactated 1,000 ML IVC SCH (09:32)
[2019-12-11] MEDS ORDERED: amLODIPine 5 MG TABLET PO SCH (11:30)
[2019-12-11 12:47] VITALS: BP 163/89
[2019-12-11] MEDS ORDERED: Cefdinir 300 MG CAPSULE PO SCH (21:00)
[2019-12-12] MEDS ORDERED: lisinopriL 10 MG TABLET PO SCH (09:00)
== END 2019-12-11 15:19 | disposition home or self-care (01) | DRG 720 ==
LOC: EMEROOARM 18:20 → 2ANU 18:20 → SUATTDRO 21:54 → 2ANU 22:41 → SUATTDRO 12-10 16:06
PROVIDERS: ADMIT Internal Medicine; ATTEND Internal Medicine

== ENCOUNTER 2020-02-26 08:36 | Observation (INO) ==
[2020-02-26] MEDS ORDERED: Naloxone 0.4 MG/ML INJ IVP ONE (08:43)
[2020-02-26 09:10] LABS: Bacteria,Urine Few per hpf (None-Few); Bilirubin,Urine Negative (Negative); Blood,Urine Small (Negative); Clarity,Urine Clear (Clear); Color,Urine Light-Yellow (Yellow); Glucose,Urine (UA) 500 mg/dL (Normal); Hyaline Casts,Urine Few per lpf (None Seen); Ketones,Urine Negative (Negative); Leukocyte Esterase,Urine Negative (Negative); Mucus,Urine Few per lpf (None-Few); Nitrite,Urine Negative (Negative); Protein,Urine >=300 mg/dL (Neg-Trace); RBC,Urine 0-3 per hpf (0-3); Specific Gravity,Urine 1.014 (1.010-1.025); Squamous Epithelial Cell,Urine Few per hpf (None-Few); Urobilinogen,Urine Normal (Normal); WBC,Urine 0-3 per hpf (0-3)
[2020-02-26 09:47] LABS: Amphetamine Screen,Urine Positive ng/mL (Cutoff=1000); Barbiturate Screen,Urine Negative ng/mL (Cutoff=200); Benzodiazepines Screen,Urine Negative ng/mL (Cutoff=200); Cannabinoid Screen,Urine Negative ng/mL (Cutoff = 50); Cocaine Screen,Urine Negative ng/mL (Cutoff= 300); Opiate Screen,Urine Negative ng/mL (Cutoff=300); Phencyclidine Screen,Urine Negative ng/mL (Cutoff=25)
[2020-02-26 09:49] LABS: Basophils # 0.1 K/mcL (0.0-0.2); Basophils % 0.3 %; Eosinophils # 0.1 K/mcL (0.0-0.6); Eosinophils % 0.3 %; Hematocrit 35.5 % (35.3-44.9); Hemoglobin 11.5 g/dL (11.5-15.4); Immature Granulocytes % 0.9 % (0-4); Lymphocytes # 1.6 K/mcL (0.6-4.6); Lymphocytes % 7.2 %; Mean Corpuscular HGB Conc 32.4 g/dL (31.6-35.5); Mean Corpuscular Hemoglobin 29.3 pg (28.0-33.3); Mean Corpuscular Volume 90.3 fL (83.0-100.0); Mean Platelet Volume 10.5 fL (9.4-12.4); Monocytes # 1.3 K/mcL (0.0-1.3); Neutrophils # 18.5 K/mcL (1.6-8.9); Platelet Count 304 K/mcL (140-400); Red Blood Count 3.93 M/mcL (3.82-4.97); Red Cell Distribution Width 12.2 % (11.5-14.5); Segmented Neutrophils % 85.3 %; White Blood Count 21.7 K/mcL (4.3-11.1)
[2020-02-26] MEDS ORDERED: Metoclopramide 10 MG/2 ML VIAL IVP ONE (10:40)
[2020-02-26 10:47] LABS: INR 0.9; Prothrombin Time 10.4 Seconds (9.4-12.1)
[2020-02-26 10:50] LABS: VBG HCO3 22 mEq/L (21-27); VBG PCO2 48 mmHg (41-51); VBG PH 7.28 pH Units (7.32-7.42); VBG PO2 92 mmHg (25-50)
[2020-02-26 10:50] LABS: Activated Partial Thrombo Time 25.8 Seconds (26.0-36.0)
[2020-02-26 11:07] LABS: Alanine Aminotransferase 37 Units/L (7-52); Albumin/Globulin Ratio 1.2 (1.1-2.2); Alkaline Phosphatase 99 Units/L (34-104); Aspartate Amino Transferase 29 Units/L (13-39); BUN/Creatinine Ratio 22 (6-26); Bilirubin,Indirect 0.3 mg/dL (0.0-1.0); Bilirubin,Total 0.3 mg/dL (0.3-1.0); Blood Urea Nitrogen 32 mg/dL (6-20); Calcium 8.3 mg/dL (8.6-10.3); Carbon Dioxide 21 mEq/L (23-29); Chloride 107 mEq/L (98-107); Ethanol < 10 mg/dL (Less than 10); Globulin 2.5 g/dL (2.4-3.5); Glucose 277 mg/dL (70-105); Osmolality,Calculated 299 (280-300); Potassium 4.7 mEq/L (3.5-5.1); Sodium 136 mEq/L (136-145); Total Protein 5.5 g/dL (6.4-8.9); Troponin I < 0.03 ng/mL (< 0.04); eGFR For African Americans 50 (> 60); eGFR For Non-African Americans 41 (> 60)
[2020-02-26] MEDS ORDERED: Piperacillin/Tazobactam 3.375 GM in 0.9 % Sodium Chloride Mini Bag 100 ML IVPB ONE (11:33)
[2020-02-26] MEDS ORDERED: 0.9 % Sodium Chloride 1,000 ML IV ONE (11:49)
[2020-02-26] MEDS ORDERED: *HR* Dextrose 50 % in Water (Vial) 50 ML VIAL IVP PRN (13:08)
[2020-02-26] MEDS ORDERED: D5% in Water 1,000 ML IVC PRN (13:08)
[2020-02-26] MEDS ORDERED: Dextrose Gel 15 GM/37.5 ML TUBE PO PRN ×2 (13:08)
[2020-02-26] MEDS ORDERED: Acetaminophen 325 MG TABLET PO PRN (13:09)
[2020-02-26] MEDS ORDERED: Prochlorperazine 10 MG/2 ML VIAL IVP PRN (13:16)
[2020-02-26] MEDS ORDERED: *HR* Metoprolol 5 MG/5 ML VIAL IVP ONE (14:43)
[2020-02-26] MEDS: Insulin LISPRO 300 UNITS/3 ML VIAL SQ SCH ×2 (16:17→21:03)
[2020-02-26] MEDS: *HR* Heparin 5,000 UNIT/ML VIAL SQ SCH (16:17)
[2020-02-26] MEDS ORDERED: Famotidine 20 MG TABLET PO SCH (16:30)
[2020-02-26] MEDS: Famotidine 20 MG TABLET PO SCH (21:03)
[2020-02-26] MEDS ORDERED: Insulin LISPRO 300 UNITS/3 ML VIAL SQ ONE (21:58)
[2020-02-27 05:00] LABS: Calcium 7.7 mg/dL (8.6-10.3); Chol/HDL Ratio 3.8 (0-4.9); Phosphorous 3.5 mg/dL (2.7-4.5)
[2020-02-27 05:09] LABS: Hematocrit 26.8 % (35.3-44.9); Mean Corpuscular HGB Conc 32.5 g/dL (31.6-35.5); Mean Corpuscular Volume 92.4 fL (83.0-100.0); Mean Platelet Volume 10.8 fL (9.4-12.4); Platelet Count 269 K/mcL (140-400); White Blood Count 12.6 K/mcL (4.3-11.1)
[2020-02-27] MEDS: *HR* Heparin 5,000 UNIT/ML VIAL SQ SCH ×2 (06:02→17:28)
[2020-02-27 06:53] LABS: Hemoglobin 8.7 g/dL (11.5-15.4)
[2020-02-27] MEDS: Insulin LISPRO 300 UNITS/3 ML VIAL SQ SCH ×4 (09:01→20:45)
[2020-02-27] MEDS ORDERED: 0.9 % Sodium Chloride 1,000 ML IVC ONE (11:09)
[2020-02-27 13:21] LABS: Estimated Average Glucose 237 mg/dl
[2020-02-27] MEDS: amLODIPine 5 MG TABLET PO SCH (17:27)
[2020-02-27] MEDS: lisinopriL 10 MG TABLET PO SCH (17:27)
[2020-02-27] MEDS: Famotidine 20 MG TABLET PO SCH (20:48)
[2020-02-27] MEDS ORDERED: Insulin DETEMIR 100 UNIT/ML X5UNITS SQ SCH (21:00)
[2020-02-27] MEDS ORDERED: *HR* Dextrose 50 % in Water (Vial) 50 ML VIAL IVP PRN (22:11)
[2020-02-27] MEDS ORDERED: Insulin Human Regular 100 UNIT in 0.9 % Sodium Chloride 100 ML IVC SCH (22:15)
[2020-02-28] MEDS ORDERED: *HR* Dextrose 50 % in Water (Vial) 50 ML VIAL IVP PRN (03:28)
[2020-02-28] MEDS ORDERED: D5% in Water 1,000 ML IVC PRN (03:28)
[2020-02-28] MEDS ORDERED: Dextrose Gel 15 GM/37.5 ML TUBE PO PRN ×2 (03:28)
[2020-02-28 04:07] LABS: Hematocrit 26.3 % (35.3-44.9); Hemoglobin 8.4 g/dL (11.5-15.4); Mean Corpuscular HGB Conc 31.9 g/dL (31.6-35.5); Mean Corpuscular Hemoglobin 29.2 pg (28.0-33.3); Mean Corpuscular Volume 91.3 fL (83.0-100.0); Mean Platelet Volume 10.4 fL (9.4-12.4); Platelet Count 282 K/mcL (140-400); Red Blood Count 2.88 M/mcL (3.82-4.97)
[2020-02-28 04:25] LABS: Calcium 7.9 mg/dL (8.6-10.3); Potassium 3.9 mEq/L (3.5-5.1)
[2020-02-28] MEDS: Insulin LISPRO 300 UNITS/3 ML VIAL SQ SCH ×2 (07:52→12:28)
[2020-02-28] MEDS: lisinopriL 10 MG TABLET PO SCH (07:59)
[2020-02-28] MEDS: *HR* Heparin 5,000 UNIT/ML VIAL SQ SCH (07:59)
[2020-02-28] MEDS: amLODIPine 5 MG TABLET PO SCH (07:59)
[2020-02-28 11:15] VITALS: BP 167/73
[2020-02-28] MEDS ORDERED: Insulin LISPRO 300 UNITS/3 ML VIAL SQ SCH (21:00)
== END 2020-02-28 15:21 | disposition home or self-care (01) ==
LOC: EMEROOARM 08:36 → 2ANU 08:36 → SUATTDRO 12:37 → 2ANU 13:30
PROVIDERS: ADMIT Family Medicine; ATTEND Internal Medicine